=== PATIENT | female | born 1955 | race Caucasian/White ===

== ENCOUNTER 2017-05-22 08:30 | Outpatient (RCR) | payer OTHER, SELFPAY ==
--- NOTE | 2016-12-15 17:56 | HP.PTEVAL ---
Patient's Visit Information RAFIQ ALCANTAR is a 61 year old F referred to Physical Therapy by Devora Trejo with a diagnosis of LUMBAR DDD AND SPONDYLOSIS. Date of Evaluation: 12/15/16 Physical Therapist: Reena Whiting - Visit Plan Frequency: 2-3x /Week Duration: 4-6 Weeks Plan: *PATIENT IS ALSO IN PT [place] FOR [place] WITH REFERAL FROM ANOTHER DOCTOR AT [facility]. POSTURE CORRECTION/STRENGTHENING, INSTRUCTION IN APPROPRIATE BODY MECHANICS AND ACTIVITY MODIFICATIONS. DLS WITH A NEUTRAL SPINE. ASHLEY LE ROM, STRETCHING AND STRENGTHENING. HEP INSTRUCTION. AQUATIC THERAPY WITH VERY SLOW PROGRESSION. 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 Disability: NO. Present symptoms: LOW BACK PAIN. NO LE SX'S. Present since: JUN 11 2016. Pain Scale: WORSE 7/10. LEAST 1/10. Currently: 2/10 - UNCHANGING. Commenced as a result of: SLIGHTLY BENT OVER PUTTING A BOX IN THE BACK OF HER CAR FELT SOMEHTING GIVE IN HER BACK AT HOME. SEVERE BACK PAIN AT THE TIME AND DIAGNOSED WITH COMPRESSION FRACTION LATER. Symptoms at onset: BACK. Worse: BEING UP RIGHT. THE MORE SHE IS UP THE WORSE IT GETS. Better: SITTING AND LYING DOWN ARE BETTER. Disturbed sleep: YES. Previous history/Previous treatment: HISTORY OF ABOUT 5 YEARS OF LBP PRIOR TO May. FEB 2016 WENT TO A PAIN SPECIALIST AND HAD INJECTIONS - INSIGNIFICANT EFFECT EVEN AFTER ABOUT 24 INJECTION IN 3 VISITS (DR. LEDEZMA). KYPHOPLASTY (ALSO BY DR. LEDEZMA) JUN 30 2016 - I THINK HE BROKE TWO MORE VERTEBRAE WHILE HE WAS IN THERE AND LATER IN THE ER THEY TOLD ME I HAD TWO MORE FRACTURES IN ADDITION TO THE ORIGINAL ONE. HOSPITALIZED FOR TWO WEEKS WITH 3 COMPRESSION FX'S. I WAS TOLD MY SPINE IS CRUMBLING AND THERE ISN'T ANYTHING SURGICAL THAT CAN BE DONE. Coughing/sneezing/straining: POSITIVE. Gait: HAS BEEN WALKING WITH A CANE OR WALKER EVER SINCE MAY 2016 AND DOES NOT FEEL STEADY WITHOUT AN ASSISTIVE DEVICE. Difficulty initiating urinatin: NO. SEEING A FAMILY DOCTOR FOR UTI THURSDAY. Accidents: NO. Unexplained weight loss: HAS LOST 56 LBS SINCE JULY 2016. POSSIBLY PAIN RELATED. NO APPETITE. Imaging: MOST RECENT LUMBAR IMAGING WAS AUGUST 2016. PMH: DX WITH PULMONARY EMBOLISM AND HOSPITALIZED A FEW WEEKS AGO FOR SUCH. Recent major surgery: NO. OTHER: HAS BEEN IN PHYSICAL THERAPY AT [facility] SINCE BEGINNING OF AUGUST FOR HER BACK CONDITION. STATES THAT THE PHYSICAL THERAPIST THERE RECOMMENDED SHE COME TO [facility] FOR WATER EX AND DR. TREJO ORDERED SUCH. INJECTIONS STARTED WITH DR. TREJO ABOUT AUGUST 2016 AND NEXT IS SCHEDULED FOR DEC 2016. - Objective Sitting Posture: POOR. Standing Posture: POOR. Lordosis: REDUCED. Lateral shift: NO. Relevant shift: N/A. Other Observations: HAS A BACK BRACE RECOMMENDED BY HOSPITAL THERAPIST PER PATIENT REPORT AND SHE WEARS IT ALL THE TIME. Motor deficit: ASHLEY LE STRENGHT IS GROSSLY 3+ to 4-/5 with MMT'ing. Sensory deficit: ASHLEY LE LIGHT TOUCH SENSATION APPEARS TO BE INTACT AND SYMMETRIAL. ROM deficit: ASHLEY LE TIGHTNESS. Reflexes: NT. Dural Signs: NEGATIVE ASHLEY LE'S. Lumbar mvmt loss: flex - MAU. ext - MAU. R SG - MAU. L SG - MAU. Core strength: POOR. OTHER: I PROCEEDED CAREFULLY WITH ALL TESTING TODAY. PATIENT HAS A LARGE AMOUNT OF ASHLEY LE EDEMA. SHE REPORTS SHE HAD THIS ABOUT A YEAR AGO AND IT WENT AWAY BUT CAME BACK AFTER SHE HURT HER BACK. - Goals Goal 1:: DECREASE C/O BACK AND ASHLEY LE SX'S. Goal Time Frame: 4-6 Weeks Goal 2:: IMPROVE PERSONAL CARE, LIFTING, WALKING, SITTING, STANDING, SLEEP, SOCIAL LIFE, TRAVEL AND EMPLOYMENT/HOMEMAKING FUNCTION Goal Time Frame: 4-6 Weeks Goal 3:: INSTRUCT IN PROPHYLAXIS Goal Time Frame: 4-6 Weeks - Rehabilitation Potential Rehabilitation Potential: Fair - Anticipated Interventions Patient/Client Instruction: Educate patient on: Condition, Plan of Care, Risk Factors, Benefits of Fitness Program For the Purpose of:: To improve self management Therapeutic Exercise to Include: Strength training, Body mechanics, Postural training, Flexibilty training, Gait and locomotor training, In an aquatic setting, Dynamic Lumbar Stabilization For the Purpose of:: To improve ability of physical actions for home/community/work/leisure Thank you for the opportunity to evaluate your patient. For Medicare and Medicare HMO plans, please review the plan of care and approve it. It will need to be FAXED BACK to us at [phone] for Medicare purposes. Please let me know if there are questions or concerns regarding this plan of care. Physician Signature: Date:
--- NOTE | 2017-01-16 10:58 | HP.PTREVAL_ITS ---
Devora Asencio, It has been my pleasure to treat RAFIQ ALCANTAR over the last 9 visits for LUMBAR DDD AND SPONDYLOSIS. Please see the progress note below for an update on the physical therapy plan of care! Subjective: PATIENT REPORTS SHE IS GETTING A LITTLE MORE STAMINA EVERY DAY. SHE REPORTS SHE IS LEARNING A LOT IN PHYSICAL THERAPY THAT SHE THINKS IS AND WILL BENEFIT HER IN TERMS OF POSTURE, CORE, HOW TO STAND AND HOW TO MOVE. I DON'T THINK I'M SLUMPED OVER I WAS. PATIENT REPORTS SHE WANTS TO CONTINUE PT BECAUSE SHE THINKS IT IS MAKING A BIG DIFFERENCE AND SHE WANTS TO GET MUCH BACK TO NORMAL POSSIBLE. Objective/Function: PATIENT CONTINUES TO HAVE A SLOW ANTALGIC GAIT PATTERN. SHE STATES SHE CAN NOT TRANSFER FROM SIT TO STAND WITHOUT UE ASSIST AND DOES NOT TRY. SHE CONTINUES TO HAVE MAJOR LUMBAR MVMT LOSS ALL PLANES. HER LEG STRENGTH DOES TEST STRONGER ASHLEY: HIP FLEX 3+/5, ADD 4-/5, ABD 4-/5, IR 4-/5, ER 4-/5, KNEE EXT 4/5, ANKLE DORSIFLEX 4/5. AGAIN - I PROCEEDED CAREFULLY WITH MMT AND PATIENT DENIED INCREASED PAIN WITH MMT. SLOW BUT GOOD PROGRESS TOWARD PT GOALS. RECOMMEND CONTINUED SKILLED PT PER ORIG POC. Plan Plan: POSTURE CORRECTION/STRENGTHENING, INSTRUCTION IN APPROPRIATE BODY MECHANICS AND ACTIVITY MODIFICATIONS. DLS WITH A NEUTRAL SPINE. ASHLEY LE ROM, STRETCHING AND STRENGTHENING. HEP INSTRUCTION. AQUATIC THERAPY WITH VERY SLOW PROGRESSION. CONTINUE 2-3 TIMES A WEEK X 10 VISITS THEN RE-CHECK. Goals Goal 1:: DECREASE C/O BACK AND ASHLEY LE SX'S. Goal Time Frame: 4-6 Weeks Goal 2:: IMPROVE PERSONAL CARE, LIFTING, WALKING, SITTING, STANDING, SLEEP, SOCIAL LIFE, TRAVEL AND EMPLOYMENT/HOMEMAKING FUNCTION Goal Time Frame: 4-6 Weeks Goal 3:: INSTRUCT IN PROPHYLAXIS Goal Time Frame: 4-6 Weeks Anticipated Interventions Patient/Client Instruction: Educate patient on: Condition, Plan of Care, Risk Factors, Benefits of Fitness Program For the Purpose of:: To improve self management Therapeutic Exercise to Include: Strength training, Body mechanics, Postural training, Flexibilty training, Gait and locomotor training, In an aquatic setting, Dynamic Lumbar Stabilization For the Purpose of:: To improve ability of physical actions for home/community/ work/leisure Please do not hesitate to contact me at [phone] by phone or Fax: if you have questions or concerns regarding this new plan of care! Sincerely, Reena Whiting
--- NOTE | 2017-04-07 09:46 | HP.PTREVAL_ITS ---
Devora Trejo, It has been my pleasure to treat RAFIQ ALCANTAR over the last 30 visits for LUMBAR DDD AND SPONDYLOSIS. Please see the progress note below for an update on the physical therapy plan of care! 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 SHE FEELS HER CORE IS STRONGER AND SHE CAN STAND AND BE UPRIGHT LONGER NOW WITHOUT THE PAIN. SHE FEELS BETTER AND SHE IS SLEEPING BETTER. THE PAIN IS STILL THERE BUT IT IS A LOT LESS. SHE REPORTS HER BIGGEST PROBLEM AT THIS POINT IS HER POOR STAMINA. SHE REPORTS SHE IS LIMITED TO EITHER GROCERY SHOPPING, GOING TO WORK OR OTHER SHOPPING BUT IN THE PAST SHE COULD DO ALL THREE. SHE IS WORKING 6 HOURS 2 DAYS A WEEK. 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 SHE WANTS TO BE ABLE TO WORK 20 HOURS A WEEK. STATES SHE STILL USES HER CANE ALL THE TIME BECAUSE HER BALANCE IS OFF AND SHE STUMBLES AND TRIPS. TOOK TWO PAIN PILLS THIS MORNING. USUALLY DOES NOT HAVE A LOT OF PAIN IN THE MORNING UNTIL ABOUT [address] TREJO NEXT THURSDAY. Objective/Function: PATIENT CONTINUES TO HAVE A SLOW ANTALGIC GAIT PATTERN. SHE STATES SHE STILL CAN NOT TRANSFER FROM SIT TO STAND WITHOUT UE ASSIST AND DOES NOT TRY. LUMBAR MVMT LOSS HAS IMPROVED: FLEX - MIN, EXT - MAU, LEFT SG - MOD, RIGHT SG - MIN. HER LEG STRENGTH TESTS BETTER TODAY - ASHLEY: HIP FLEX 4-/ 5, ADD 4/5, ABD 4/5, IR 4/5, ER 4/5, KNEE EXT 5/5, KNEE FLEX 5/5, ANKLE DORSIFLEX 5/5. AGAIN - I PROCEEDED CAREFULLY WITH MMT AND PATIENT DID NOT HAVE NCREASED PAIN WITH HIP FLEX TESTING BUT IT RESOLVED QUICKLY WITH REST. SLOW BUT GOOD PROGRESS TOWARD PT GOALS. RECOMMEND CONTINUED SKILLED PT PER ORIG POC. Plan Plan: CONTINUE AQUATIC THERAPY 1X A WEEK WHILE PATIENT STARTS INDEP MEMBERSHIP EX IN THE POOL 1-2 TIMES A WEEK X 6 TO 7 WEEKS. GOAL OF TRANSITION TO COMPLETE INDEPENDENCE. PROGRESS TOLERATED. Goals Goal 1:: DECREASE C/O BACK AND ASHLEY LE SX'S. Goal Time Frame: 4-6 Weeks Goal Progress: Progressing Goal 2:: IMPROVE PERSONAL CARE, LIFTING, WALKING, SITTING, STANDING, SLEEP, SOCIAL LIFE, TRAVEL AND EMPLOYMENT/HOMEMAKING FUNCTION Goal Time Frame: 4-6 Weeks Goal Progress: Progressing Goal 3:: INSTRUCT IN PROPHYLAXIS Goal Time Frame: 4-6 Weeks Goal Progress: Progressing Anticipated Interventions Patient/Client Instruction: Educate patient on: Condition, Plan of Care, Risk Factors, Benefits of Fitness Program For the Purpose of:: To improve self management Therapeutic Exercise to Include: Strength training, Body mechanics, Postural training, Flexibilty training, Gait and locomotor training, In an aquatic setting, Dynamic Lumbar Stabilization For the Purpose of:: To improve ability of physical actions for home/community/ work/leisure Please do not hesitate to contact me at [phone] by phone or Fax: if you have questions or concerns regarding this new plan of care! Sincerely, Reena Whiting
--- NOTE | 2017-05-22 10:00 | HP.PTDCSUM_ITS ---
HP - PT D/C Summary It has been my pleasure to treat RAFIQ ALCANTAR under orders from Devora Asencio, for the diagnosis of LUMBAR DDD AND SPONDYLOSIS for a total of 37 visit (s). Discharge Date: 05/22/17 Please see the following information for a summary of their discharge status. - Subjective Subjective: PATIENT REPORTS SHE IS UP TO WORKING 20 HOURS A WEEK NOW. PATIENT STATES HER STAMINA IS BETTER. SHE CAN DO THINGS FOR A LONGER PERIOD OF TIME. SHE REPORTS HER BALANCE IS MUCH BETTER AND SHE IS MORE FLEXIBLE. SHE STATES SHE IS TRYIING TO DEAL WITH THE FACT THAT THE PAIN IS PROBABLY NOT GOING TO GO AWAY. SHE GOT ANOTHER INJECTION JUST BEFORE [facility] BUT IT DIDN'T HELP MUCH THE LAST TIME. PATIENT REPORTS INCREASED PAIN THIS MORNING IN HER LOW BACK THAT SHE RELATES TO STAYING UP LATE LAST NIGHT TO MAKE COOKIES AND PICKING UP THE CAT FOR AN APPOINTMENT TODAY. STILL GETTINIG UP TO 01/01. LEAST 06/03. PATIENT REPORTS SHE HAS NOT BEEN COMING IN TO EX IN THE POOL ON HER OWN AT ALL YET. SHE REPORTS SHE HAD THE BEST OF INTENTIONS BUT JUST NEVER GOT A MEMBERSHIP. SHE PLANS TO GET ONE TODAY STATING SHE FEELS SHE HAS TO BECAUSE IT IS THE ONLY THING THAT HELPS. NOT NEEDING TO USE HER CANE IN THE HOUSE MUCH ANYMORE. SHE DOES ALWAYS TAKE IT WITH HER IF SHE GOES OUT OF THE HOUSE FOR SAFETY ESPECIALLY WITH THE ICE. - Pain LBP Pain Intensity (Out of 10): 4 - Overall Improvement % Improvement: 70 - Objective Objective/Function: THIS PATIENT AMBULATES INDEP'LY INTO PT WITH A QUAD CANE AND A SLOW CAUTIOUS GAIT PATTERN. SHE STATES SHE STILL CAN NOT TRANSFER FROM SIT TO STAND WITHOUT UE ASSIST AND DOES NOT TRY. LUMBAR MVMT LOSS: FLEX - NIL , EXT - MAU, LEFT SG - MAU, RIGHT SG - MOD. HER LEG STRENGTH TESTS BETTER TODAY - ASHLEY: HIP FLEX 4/5, ADD 5/5, ABD 4/5, IR 4/5, ER 4/5, KNEE EXT 5/5, KNEE FLEX 5/5, ANKLE DORSIFLEX 5/5. PATIENT DENIED INCREASED PAIN WITH LUMBAR ROM AND STRENGTH TESTING TODAY. PATIENT IS ONLY ABLE TO SLS X APPROX 5 SEC ON EACH LEG WITHOUT UE ASSIST. SLOW BUT GOOD PROGRESS TOWARD PT GOALS. RECOMMEND D /C DUE TO PATIENT BEING INDEP WITH A POOL PROGRAM AT THIS POINT. SHE STATES SHE WOULD LIKE TO CONTINUE PT BUT UNDERSTANDS IT IS TIME FOR HER TO BE ON HER OWN AND SHE KNOWS HER PROGRAM. STATES SHE HAS LEARNED A LOT. - Goals Goal 1:: DECREASE C/O BACK AND ASHLEY LE SX'S. Goal Progress: Progressing Goal 2:: IMPROVE PERSONAL CARE, LIFTING, WALKING, SITTING, STANDING, SLEEP, SOCIAL LIFE, TRAVEL AND EMPLOYMENT/HOMEMAKING FUNCTION Goal Progress: Progressing Goal 3:: INSTRUCT IN PROPHYLAXIS Goal Progress: Goal Met - Plan Plan: D/C - D/C Information If there are questions or concerns regarding this patient's physical therapy, please feel free to call me at [phone]. Thank you for the referral of this patient. Sincerely, Reena Whiting
== END 2017-05-22 19:00 | disposition home or self-care (01) ==
LOC: PT 08:30
PROVIDERS: Family Provider Internal Medicine; PCP Internal Medicine; Visit Provider Anesthesiology Pain Medicine
DX: M51.36 Other intervertebral disc degeneration, lumbar region (principal); M47.816 Spondylosis without myelopathy or radiculopathy, lumbar region
CPT/HCPCS: 97113; 97162; 97530

== ENCOUNTER → 2017-07-03 11:49 | Outpatient (CLI) | payer OTHER, SELFPAY ==
[2017-07-03 16:09] LABS: ALB/GLOB Ratio 1.1 RATIO (0.9-2.4); AST(SGOT) 14 U/L (15-37); Alanine Aminotransfer ALT/SGPT 26 U/L (13-56); Albumin, Serum 3.3 g/dL (3.2-5.0); Alkaline Phosphatase 109 U/L (45-117); Anion Gap 8 (5-15); BUN 16 mg/dL (7-18); BUN/Creat Ratio 24.2 RATIO (10-20); Calcium,Total 8.8 mg/dL (8.5-10.1); Chloride 102 mmol/L (98-107); Creatinine, Serum 0.66 mg/dL (0.55-1.02); EST Glomerular Filtration Rate 96 mL/min (>60); Est Glom Filt Rate - Afr Amer 116 mL/min (>60); Glucose 115 mg/dL (74-106); Magnesium 2.1 mg/dL (1.6-2.6); Phosphorus 3.7 mg/dL (2.5-4.9); Potassium 4.3 mmol/L (3.5-5.1); Protein, Total 6.3 g/dL (6.4-8.2); Sodium Level 140 mmol/L (136-145)
[2017-07-03 16:44] LABS: Vitamin D,25 Hydroxy 15.6 ng/mL (19.95-100.01)
[2017-07-03 18:29] LABS: PTHIN 167.6 pg/mL (18.4-80.1)
== END ==
LOC: LAB 14:59 → MEDOUTP 15:59
PROVIDERS: Family Provider Internal Medicine; PCP Internal Medicine; Visit Provider Internal Medicine Endocrinology, Diabetes & Metabolism
DX: M81.0 Age-related osteoporosis without current pathological fracture (principal); E21.1 Secondary hyperparathyroidism, not elsewhere classified; E55.9 Vitamin D deficiency, unspecified; E83.39 Other disorders of phosphorus metabolism; E83.42 Hypomagnesemia
CPT/HCPCS: 36591; 80053; 82306; 83735; 83970; 84100; A4216

== ENCOUNTER → 2017-08-07 11:27 | Outpatient (CLI) | payer OTHER, SELFPAY ==
--- NOTE | 2017-08-07 11:29 | CT_ITS ---
STUDY: CTA CHEST REASON FOR EXAM: Female, 61 years old. Shortness breast for 3 weeks. History of skin cancer. RADIATION DOSAGE (If Supplied By Facility): CTDIvol = ( 16.26 ) mGy, DLP = ( 635.10 ) mGycm TECHNIQUE: The examination was performed with the intravenous administration of 100 ml of Isovue 370 contrast material. Post-processing of the angiographic images was performed, with multiplanar reformation and 3D reconstruction. Individualized dose optimization techniques were used for this CT. COMPARISON: CTA of the chest, April 02, 2017. FINDINGS: There is a right jugular Port-A-Cath with its tip at the atriocaval junction. Normal enhancement of the main pulmonary artery and right and left pulmonary arteries. Normal enhancement of the bilateral peripheral pulmonary arteries. There is no demonstrated pulmonary embolism. There is atherosclerotic tortuosity of the thoracic aorta without aneurysm. There is no demonstrated aortic dissection. Normal heart and pericardium. There is stable nonspecific subcentimeter mediastinal lymphadenopathy. Normal hilar regions. Normal visualized trachea and bronchi. The lungs are well expanded. There is linear scarring in the left upper lobe. There are multiple predominantly subpleural soft tissue nodules throughout both lungs which appear unchanged in number and size when compared to the prior study. Normal pleura. Normal chest wall structures. There are degenerative changes of thoracic spine. Normal visualized upper abdomen. CT/CTA Chest W/WO Contrast IMPRESSION: 1. No evidence of pulmonary embolus. 2. No aortic dissection or aneurysm. 3. Multiple small soft tissue nodules throughout both lungs unchanged from the previous examination. Electronically Signed: Dwain Kenyon DO at 12:16 EDT Tel [phone], Service support ,
[2017-08-07 11:45] LABS: CREATININE FINGERSTICK 0.8 mg/dL (0.55-1.02); EGFR FINGERSTICK > 60.0000 mL/min (>60)
== END ==
PROVIDERS: Family Provider Internal Medicine; PCP Internal Medicine; Visit Provider Internal Medicine
DX: R91.8 Other nonspecific abnormal finding of lung field (principal); R06.02 Shortness of breath
CPT/HCPCS: 71275; Q9967; A4216

== ENCOUNTER → 2017-09-01 09:35 | Outpatient (CLI) | payer OTHER, SELFPAY ==
--- NOTE | 2017-09-01 09:38 | RAD_ITS ---
STUDY: X-RAY - LEFT FOOT CLINICAL: Female, 61 years old. Trauma, pain TECHNIQUE: 3 view(s) of the foot. COMPARISON: None. FINDINGS: The bones are demineralized. Degenerative changes are seen within the midfoot. Bony spurring is seen along the dorsum. There is pes planus. There is a nondisplaced fracture at the base of the fifth metatarsal. Normal metatarsophalangeal joint of the great toe. Normal tibial and fibular sesamoid bones. Normal interphalangeal joint of the great toe. Normal phalanges of the great toe. Normal second through fifth metatarsophalangeal joints. Normal interphalangeal joints and phalanges of the lesser toes. The soft tissue structures are unremarkable. RAD/Foot min 3 Views IMPRESSION: Nondisplaced fracture at the base of the fifth metatarsal. Osteopenia. Degenerative changes and pes planus. Electronically Signed: Colin Bailey DO at 10:29 EDT Tel , Service support ,
== END ==
PROVIDERS: Family Provider Internal Medicine; PCP Internal Medicine; Visit Provider Internal Medicine
DX: M79.672 Pain in left foot (principal)
CPT/HCPCS: 73630

== ENCOUNTER → 2017-09-02 09:32 | Outpatient (CLI) | payer OTHER, SELFPAY ==
[2017-09-02 10:08] LABS: Amphetamine Urine VISTA NEGATIVE (<1000 ng/mL); Barbiturate Urine VISTA NEGATIVE (< 200 ng/mL); Benzodiazepine Urine VISTA NEGATIVE (< 200 ng/mL); Cocaine Urine VISTA NEGATIVE (< 300 ng/mL); Ecstacy Urine VISTA NEGATIVE (< 500 ng/mL); Methadone Urine VISTA NEGATIVE (< 300 ng/mL); PCP Urine VISTA NEGATIVE (< 25 ng/mL); THC Urine VISTA NEGATIVE (< 50 ng/mL); Vista UDS pH Range 5
== END ==
PROVIDERS: Family Provider Internal Medicine; PCP Internal Medicine; Visit Provider Anesthesiology Pain Medicine
DX: F11.20 Opioid dependence, uncomplicated (principal)
CPT/HCPCS: 80307

== ENCOUNTER → 2017-10-23 08:06 | Outpatient (CLI) | payer OTHER, SELFPAY ==
[2017-10-23 08:30] VITALS: BP 159/92; PULSE 100; RESP 16; TEMP 36.6; O2SAT 99; BMI 47.9
[2017-10-23] MEDS: Cosyntropin 0.25 MG Vial IV (08:53)
[2017-10-25 08:42] LABS: Adrenocorticotropic Hormone 27.1 pg/mL (7.2-63.3)
== END ==
PROVIDERS: Family Provider Internal Medicine; PCP Internal Medicine; Visit Provider Internal Medicine Nephrology
DX: E27.40 Unspecified adrenocortical insufficiency (principal)
CPT/HCPCS: 96374; 36591; 82024; 82533; A4216; J0834

== ENCOUNTER → 2017-11-27 15:30 | Outpatient (CLI) | payer OTHER, SELFPAY | PROVIDERS: Family Provider Internal Medicine; PCP Internal Medicine; Visit Provider Internal Medicine Medical Oncology | DX: Z45.2 Encounter for adjustment and management of vascular access device (principal) | CPT/HCPCS: 36591; A4216 ==

== ENCOUNTER → 2017-12-18 14:41 | Outpatient (CLI) | payer OTHER, SELFPAY ==
--- NOTE | 2017-12-18 14:45 | RAD_ITS ---
STUDY: X-RAY - RIGHT SHOULDER REASON FOR EXAM: Female, 62 years old. Pain TECHNIQUE: 4 view(s) of the shoulder. COMPARISON: None. FINDINGS: There is mild degenerative arthrosis of the glenohumeral articulation. There is degenerative arthrosis of the acromioclavicular joint without inferior osseous spur formation. There is a spur on the undersurface of the acromion which could cause impingement in the right clinical setting per Normal humeral head and visualized proximal humerus. The soft tissue structures are unremarkable. Normal visualized pulmonary apex. 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 Electronically Signed: Tomer Hopkins MD at 15:18 EDT , Service support ,
== END ==
PROVIDERS: Family Provider Internal Medicine; PCP Internal Medicine; Visit Provider Internal Medicine
DX: M19.011 Primary osteoarthritis, right shoulder (principal)
CPT/HCPCS: 73030

== ENCOUNTER 2017-12-21 15:30 | Outpatient (RCR) | payer OTHER, SELFPAY ==
--- NOTE | 2017-10-14 17:27 | HP.PTEVAL ---
Patient's Visit Information RAFIQ ALCANTAR is a 61 year old F referred to Physical Therapy by Devora Asencio with a diagnosis of Back and leg pain. Date of Evaluation: 10/13/17 Physical Therapist: David Ortega - Visit Plan Frequency: 2x /Week Duration: 4 Weeks Plan: f/u with postural corrections. Add wall push-ups at next visit. - Subjective Subjective: Pt. is here today for her initial evaluation with diagnosis of back and leg pain. Pt. denies having leg pain today, but is mostly having low back pain. Pt. reports having a history of low back pain. Present since: JUN 11 2016. 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 Disability: NO. Present symptoms: LOW BACK PAIN. NO LE SX'S. . Pain Scale: WORSE 7/10. LEAST 1/10. Currently: 5/10 - UNCHANGING. Commenced as a result of: SLIGHTLY BENT OVER PUTTING A BOX IN THE BACK OF HER CAR FELT SOMEHTING GIVE IN HER BACK AT HOME. SEVERE BACK PAIN AT THE TIME AND DIAGNOSED WITH COMPRESSION FRACTION LATER. Symptoms at onset: BACK. Worse: BEING UP RIGHT. Pt. reports increasd symptoms with walking, standing that worsens with increased time in either position. Better: SITTING AND LYING DOWN ARE BETTER. Disturbed sleep: YES. Previous history/Previous treatment: HISTORY OF ABOUT 5 YEARS OF LBP PRIOR TO May. FEB 2016 WENT TO A PAIN SPECIALIST AND HAD INJECTIONS - INSIGNIFICANT EFFECT EVEN AFTER ABOUT 24 INJECTION IN 3 VISITS (DR. LEDEZMA). KYPHOPLASTY (ALSO BY DR. LEDEZMA) JUN 30 2016 . HOSPITALIZED FOR TWO WEEKS WITH 3 COMPRESSION FX'S. I WAS TOLD MY SPINE IS CRUMBLING AND THERE ISN'T ANYTHING SURGICAL THAT CAN BE DONE, pt. reports multiple specialist have told her this. Coughing/sneezing/straining: POSITIVE. Gait: HAS BEEN WALKING WITH A CANE OR WALKER EVER SINCE MAY 2016 AND DOES NOT FEEL STEADY WITHOUT AN ASSISTIVE DEVICE. Accidents: NO. Imaging: Recent major surgery: NO. OTHER: Pt. did fall recently, my legs just gave out. She ended up having a L foot fracture, but was unable to wear a boot due to being unbalance. Pt. reports that her fx is not healing, but surgeon wants to continue with current POC. She reports that her physician says she is doing better and is ready to start doing PT again. Pt. reports doing minimal at home because land therapy has never helped me. She trialed aquatic Pt on own, but did not continue do to time constraints. - Pain Lumbar Spine Pain Intensity (Out of 10): 2 Pain Intensity Range: 5, 8 - Objective POSTURE: Pt. has flexed posture in stance. Pt. has R shoulder lean, due to levascolosis. Pt. has normal iliac crest height. Pt. has FH and rounded shoulders. PALPATION: Pt. has increased tenderness to palpation of lower lumbar paraspinals. Increased pain with light spring testing, no radiating symptoms. NEUROLOGICAL: Pt. has 2+ achilles and patellar DTR bilaterally. Pt. has normal sensation to light and sharp touch of bilateral LEs. Pt. is able to rise on heels and toe without visible weakness, but requires balance aid to maintain stability. ROM: LUMBAR SPINE: flexion min/nil loss NE, ext mod/max loss increase NW, SB mod/min loss increase NW, rotation mod loss increase NW. Normal hip ROM without increase in symptoms. Tight HS noted and tight hip flexors bilaterally. PT. has increasd pain with GAIL, but no increase with RFIS. Pt. MMT: RLE- ankle 5/5 throughout; knee- ext 4+/5, flexion 4/5; hip- flexion 4/5, abd 4-/5, ext 4/5. LLE- ankle 5/5 throughout; knee- ext 4+/5, flexon 4/5; hip- flexion 4/5, abd 4-/5, ext 4-/5. Core strength poor. GAIT: Pt. ambulates with cane with increased hip translation, contralateral hip drop. Pt. has flexed posture with FH. Pt. reports increased lumbar spine pain with increased walking for ~200ft. Reduces with sitting. - Goals Goal 1:: Pt to be I with HEP. Goal Time Frame: 4-6 Weeks Goal 2:: Pt. to have increased BLE and core strength by 1/2 grade of all effected musculature to increase stability and reduce stress applied to lumbar spine. Goal Time Frame: 4-6 Weeks Goal 3:: Pt. to have improved erect posture in stance seen by pt. being able to demonstrate throughout therapy session. Goal Time Frame: 4-6 Weeks Goal 4:: Pt. to ambulate 500ft. with improved posture and decreased lumbar spine pain allowing greater tolerance to all community mobilty. Goal Time Frame: 4-6 Weeks Goal 5:: Pt. 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 Goal Time Frame: 4-6 Weeks - Rehabilitation Potential Physical Therapy Diagnosis: Pt. has signs and symptoms consistent with lumbar spine. Pt. has marked weakness in her BLEs and core and limited lumbar ROM. Pt. would benefit from PT to increase core strength, lumbar ROM and general mobility training in gravity reduced enviornement. Rehabilitation Potential: Fair - Anticipated Interventions Patient/Client Instruction: Educate patient on: Condition, Plan of Care, Risk Factors, Benefits of Fitness Program For the Purpose of:: To improve safety, To improve health and function, To foster healthy habits, To improve decision making, To facilitate caregiver knowledge, To improve self management, To prevent re-injury, To improve ability to perform tasks related to life management, To improve tolerance to ADL's Therapeutic Exercise to Include: Strength training, Power training, Endurance training, Balance training, Postural training, Flexibilty training, Gait and locomotor training, In an aquatic setting, Passive ROM, Active ROM, Dynamic Lumbar Stabilization For the Purpose of:: To decrease pain, To increase ROM, To improve nutrient delivery to tissue, To increase oxygenation perfusion, To improve muscle performance and motor function, To improve gait and locomotor functions, To improve health of tissue, To decrease soft tissue restriction, To increase flexibility/ROM, To improve endurance, To improve balance, To improve safety with gait Thank you for the opportunity to evaluate your patient. For Medicare and Medicare HMO plans, please review the plan of care and approve it. It will need to be FAXED BACK to us at [phone] for Medicare purposes. Please let me know if there are questions or concerns regarding this plan of care. Physician Signature: Date:
--- NOTE | 2017-11-19 07:59 | HP.PTREVAL_ITS ---
Devora Asencio, It has been my pleasure to treat RAFIQ ALCANTAR over the last 10 visits for Back and leg pain. Please see the progress note below for an update on the physical therapy plan of care! Subjective: PT HAS 2 MORPHINES IN HER CURRENTLY. Objective/Function: pT PREM ALL WELL. PT WAS UNABLE TO STAY LONG AFTER PT, NEEDS TO BE SOMEWHERE. Plan Plan: CONT POOL THERAPY- WORKING TOWARDS INDEPENDENT POOL PROGRAM WITH PAPER. Goals Goal 1:: Pt to be I with HEP. Goal Time Frame: 4-6 Weeks Goal Progress: Progressing Goal 2:: Pt. to have increased BLE and core strength by 1/2 grade of all effected musculature to increase stability and reduce stress applied to lumbar spine. Goal Time Frame: 4-6 Weeks Goal Progress: Progressing Goal 3:: Pt. to have improved erect posture in stance seen by pt. being able to demonstrate throughout therapy session. Goal Time Frame: 4-6 Weeks Goal Progress: Progressing Goal 4:: Pt. to ambulate 500ft. with improved posture and decreased lumbar spine pain allowing greater tolerance to all community mobilty. Goal Time Frame: 4-6 Weeks Goal Progress: Progressing Goal 5:: Pt. 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 Goal Time Frame: 4-6 Weeks Goal Progress: Progressing Anticipated Interventions Patient/Client Instruction: Educate patient on: Condition, Plan of Care, Risk Factors, Benefits of Fitness Program For the Purpose of:: To improve safety, To improve health and function, To foster healthy habits, To improve decision making, To facilitate caregiver knowledge, To improve self management, To prevent re-injury, To improve ability to perform tasks related to life management, To improve tolerance to ADL's Therapeutic Exercise to Include: Strength training, Power training, Endurance training, Balance training, Postural training, Flexibilty training, Gait and locomotor training, In an aquatic setting, Passive ROM, Active ROM, Dynamic Lumbar Stabilization For the Purpose of:: To decrease pain, To increase ROM, To improve nutrient delivery to tissue, To increase oxygenation perfusion, To improve muscle performance and motor function, To improve gait and locomotor functions, To improve health of tissue, To decrease soft tissue restriction, To increase flexibility/ROM, To improve endurance, To improve balance, To improve safety with gait Please do not hesitate to contact me at [phone] by phone or Fax: if you have questions or concerns regarding this new plan of care! Sincerely, David Ortega
--- NOTE | 2017-12-29 07:49 | HP.PTDCSUM ---
HP - PT D/C Summary It has been my pleasure to treat RAFIQ ALCANTAR under orders from Devora Asencio, for the diagnosis of Back and leg pain for a total of 19 visit(s). Discharge Date: 12/23/17 Please see the following information for a summary of their discharge status. - Subjective Subjective: Pt. is here today for her final follow up. Pt. reports having some mild relief with pool exercises, but continues to have pain. Pt. is independent with current program. Pt. reports having 3/10 pain in lumbar spine currently. - Pain Lumbar Spine Pain Intensity (Out of 10): 3 - Overall Improvement % Improvement: 50 - Objective Objective/Function: LUMBAR ROM: flexion- min/mod loss increase NW, ext mod loss increase NW, rotation min loss bilat increase NW, SB min loss bilat increase NW. Pt. has normal hip ROM, except tightness noted in B HS and hip flexors. MMT: RLE- ankle/knee 5/5 throughout; hip- flexion 4/5, abd 4/5, ext 4/5. LLE- ankle/knee 5/5 throughout; hip- flexion 4/5, abd 4/5, ext 4/5. Core strength- poor+. GAIT: Pt. ambulates with SPC, but has slight flexed posture, with R lateral lean. Pt. reports increased pain with R stance phase. STAIRS: Pt. uses BHR with flexed posture and step to pattern, lateral side stepping to descend. - Goals Goal 1:: Pt to be I with HEP. Goal Progress: Goal Met Goal 2:: Pt. to have increased BLE and core strength by 1/2 grade of all effected musculature to increase stability and reduce stress applied to lumbar spine. Goal Progress: Goal Met Goal 3:: Pt. to have improved erect posture in stance seen by pt. being able to demonstrate throughout therapy session. Goal Progress: Goal Met Goal 4:: Pt. to ambulate 500ft. with improved posture and decreased lumbar spine pain allowing greater tolerance to all community mobilty. Goal Progress: Goal Met Goal 5:: Pt. 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 Goal Progress: Progressing - Plan Plan: Pt. to be DC to I pool program currently. - D/C Information Discharge Comments: Pt. was treated for her low back pain with hip and core strengthening in aquatic setting. Pt. is now independent with her exercises in the pool. Pt. continues to have symptoms, but knows she has to continue to focus on core stability to reduce stress on her lumbar spine with all functional mobility. Pt. consents to HEP on her own and DC from PT this date. If there are questions or concerns regarding this patient's physical therapy, please feel free to call me at [phone]. Thank you for the referral of this patient. Sincerely, David Ortega
== END 2017-12-21 19:00 | disposition home or self-care (01) ==
LOC: PT 15:30
PROVIDERS: Family Provider Internal Medicine; PCP Internal Medicine; Visit Provider Anesthesiology Pain Medicine
DX: M54.9 Dorsalgia, unspecified (principal); M79.606 Pain in leg, unspecified
CPT/HCPCS: 97113; 97162; 97530

== ENCOUNTER 2018-01-08 11:00 | Outpatient (RCR) | payer OTHER, SELFPAY ==
--- NOTE | 2017-12-25 14:23 | HP.PTEVAL ---
Patient's Visit Information RAFIQ ALCANTAR is a 62 year old F referred to Physical Therapy by Batsheva Pak with a diagnosis of R shoulder supraspinatus/biceps tendonitis. Date of Evaluation: 12/23/17 Physical Therapist: David Ortega - Visit Plan Frequency: 2x /Week Duration: 4 Weeks Plan: Start with PROM/AAROM of R shoulder, US to promote healing. Add in below shoulder RTC strengthening without increase in symptoms. Add in postural education to reduce increased stress at GH joint and subacromial space. - Subjective Subjective: Pt. is here today for her initial evaluation with diagnosis R shoulder supraspinatus tendonitis and bursitis. Pt. reports not knowing cause of symptoms. Pt. reprots increased shoulder pain with all lifting of her arm, sleeping, and upper body dressing. Pt. denies numbness and tingling in RUE. Pt. has not trialed any exercises at home. Pt. reports difficulty with washing her back and hair. 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 Pt. is hopeful to improve ROM and strength in order to complete all ADLs without issues or limitations. - Pain R shoulder Pain Intensity (Out of 10): 5 Pain Intensity Range: 2, 6 - Objective POSTURE: Pt. has flexed posture, rounded shoulder, protracted scapulea bilaterally, FH posture and reduced lumbar lordosis. PALPATION: Pt. has tenderness at subacromial space of R shoulder, R suprspinatus muscle belly, and bicpital groove. NEUROLOGICAL: pt. has normal neuro testing, all intact. ROM: R shoulder- AROM- flexion 130deg. symptoms increased at ~90deg increased difficulty with controlled eccentric lowering, abd 108deg increased pain at ~80deg, functional ER C1 increase NW, functional IR greater trochanter increase NW. PROM- flexion 150deg mild increase NW, abd 130deg increase NW, ER at side 45deg NE, IR in scaption 60deg increase NW. MMT: RUE- wrist and elbow 5/5 throughout; shoulder- flexion 4/5 incraese NW, abd 4-/5 increase NW, ER 4/5 increase NW, IR 5/5 NE. - Special Tests R Shoulder External Rotation Lag Test - RC Tear: Negative R Shoulder Lift Off Test - Subscapular Tear: Negative R Shoulder Drop Sign - IS Test: Negative R Shoulder Empty Can - SS: Positive R Shoulder Belly Press - SupScap: Negative R Shoulder Neer - Impingement: Positive R Shoulder [place] Erik - Impingement: Positive R Shoulder Sulcus Sign - Inferior Laxity: Positive - Goals Goal 1:: Pt. to be I with HEP. Goal Time Frame: 4-6 Weeks Goal 2:: Pt. to haev increased AROM of R shoulder to full without increase in symptoms. Goal Time Frame: 4-6 Weeks Goal 3:: Pt. to ahve increased R shoulder strength by 1/2 grade of all effecetd musculature. Goal Time Frame: 4-6 Weeks Goal 4:: Pt. to complete all ADLs without increase in symptoms Goal Time Frame: 4-6 Weeks Goal 5:: Pt. to sleep throughout the night withotu increase in symptoms. Goal Time Frame: 4-6 Weeks - Rehabilitation Potential Physical Therapy Diagnosis: Pt. has signs symptoms consistent with supraspinatus/biceps tendonitis. Pt. has signs of supraspinatus pathology, possibly slight degenerative tear due to spuring above insertion of muscle. Pt. would benefit from PT to incerase ROM, decerase pain and progress RUE strength. Rehabilitation Potential: Fair - Anticipated Interventions Patient/Client Instruction: Educate patient on: Condition, Plan of Care, Risk Factors For the Purpose of:: To improve safety, To improve health and function, To foster healthy habits, To improve decision making, To facilitate caregiver knowledge, To improve self management, To prevent re-injury, To improve ability to perform tasks related to life management, To improve tolerance to ADL's Therapeutic Exercise to Include: Strength training, Postural training, Flexibilty training, Passive ROM, Active ROM, Scapular Strength/Stabilization For the Purpose of:: To decrease pain, To increase ROM, To improve nutrient delivery to tissue, To increase oxygenation perfusion, To improve muscle performance and motor function, To improve ability to perform ADL's, To increase tolerance to activity/condition/position, To improve health of tissue, To decrease soft tissue restriction, To increase flexibility/ROM Manual Therapy Techniques to Include: Mobilization, Functional dry needling, Soft tissue mobilization For the Purpose of:: To decrease pain, To decrease swelling/inflammation, To increase ROM, To improve nutrient delivery to tissue Cryotherapy (ice pack, ice massage): Yes Thermo therapy (hot pack): Yes Ultrasound (thermal/non thermal): Yes For the Purpose of:: To decrease pain, To decrease swelling/inflammation, To increase ROM Thank you for the opportunity to evaluate your patient. For Medicare and Medicare HMO plans, please review the plan of care and approve it. It will need to be FAXED BACK to us at [phone] for Medicare purposes. Please let me know if there are questions or concerns regarding this plan of care. Physician Signature: Date:
--- NOTE | 2018-03-04 11:21 | HP.PT.NRP ---
HP - Discharge Summary (1) - Patient Information RAFIQ ALCANTAR was seen in my office for initial evaluation on 12/23/17. The following Plan of Care was established for this patient: Initial Frequency: 2x /Week Initial Duration: 4 Weeks - Anticipated Interventions Patient/Client Instruction: Educate patient on: Condition, Plan of Care, Risk Factors For the Purpose of:: To improve safety, To improve health and function, To foster healthy habits, To improve decision making, To facilitate caregiver knowledge, To improve self management, To prevent re-injury, To improve ability to perform tasks related to life management, To improve tolerance to ADL's Therapeutic Exercise to Include: Strength training, Postural training, Flexibilty training, Passive ROM, Active ROM, Scapular Strength/Stabilization For the Purpose of:: To decrease pain, To increase ROM, To improve nutrient delivery to tissue, To increase oxygenation perfusion, To improve muscle performance and motor function, To improve ability to perform ADL's, To increase tolerance to activity/condition/position, To improve health of tissue, To decrease soft tissue restriction, To increase flexibility/ROM Manual Therapy Techniques to Include: Mobilization, Functional dry needling, Soft tissue mobilization For the Purpose of:: To decrease pain, To decrease swelling/inflammation, To increase ROM, To improve nutrient delivery to tissue Cryotherapy (ice pack, ice massage): Yes Thermo therapy (hot pack): Yes Ultrasound (thermal/non thermal): Yes For the Purpose of:: To decrease pain, To decrease swelling/inflammation, To increase ROM This patient was last seen in our office 01/08/18. Pertinent comments regarding their Physical therapy will appear below: Pt. was seen in PT for her shoulder pain. Pt. at her last visit was having 2-3 days of relief after PT, but symptoms would return. Pt. has not been seen in ~2 months and will be DC from PT at this point in time. At this point I will be discontinuing this patient from physical therapy. I would be happy to see this patient again in the future if found appropriate by the physician. Thank you! David Ortega
== END 2018-01-08 19:00 | disposition home or self-care (01) ==
LOC: PT 11:00
PROVIDERS: Family Provider Internal Medicine; PCP Internal Medicine; Visit Provider Internal Medicine
DX: M75.21 Bicipital tendinitis, right shoulder (principal)
CPT/HCPCS: 97035; 97110; 97140; 97164

== ENCOUNTER → 2018-04-08 14:28 | Outpatient (CLI) | payer OTHER, SELFPAY ==
[2018-04-08 16:44] LABS: ALB/GLOB Ratio 0.9 RATIO (0.9-2.4); AST(SGOT) 26 U/L (15-37); Alanine Aminotransfer ALT/SGPT 31 U/L (13-56); Albumin, Serum 3.4 g/dL (3.2-5.0); Alkaline Phosphatase 136 U/L (45-117); Anion Gap 8 (5-15); BUN 15 mg/dL (7-18); Calcium,Total 9.1 mg/dL (8.5-10.1); Chloride 104 mmol/L (98-107); Creatinine, Serum 0.71 mg/dL (0.55-1.02); EST Glomerular Filtration Rate 88 mL/min (>60); Est Glom Filt Rate - Afr Amer 106 mL/min (>60); Globulin 3.6 g/dL (2.2-4.2); Glucose 90 mg/dL (74-106); Magnesium 1.8 mg/dL (1.6-2.6); Phosphorus 3.5 mg/dL (2.5-4.9); Potassium 3.6 mmol/L (3.5-5.1); Sodium Level 142 mmol/L (136-145)
[2018-04-08 16:47] LABS: PTHIN 71.5 pg/mL (18.4-80.1)
== END ==
PROVIDERS: Family Provider Internal Medicine; PCP Internal Medicine; Referring Provider Internal Medicine Endocrinology, Diabetes & Metabolism; Visit Provider Internal Medicine Endocrinology, Diabetes & Metabolism
DX: M81.0 Age-related osteoporosis without current pathological fracture (principal); E21.1 Secondary hyperparathyroidism, not elsewhere classified; E55.9 Vitamin D deficiency, unspecified; E83.42 Hypomagnesemia
CPT/HCPCS: 36415; 80053; 82306; 82360; 83735; 83970; 84100

== ENCOUNTER 2018-05-07 10:00 | Outpatient (RCR) | payer OTHER, SELFPAY ==
--- NOTE | 2018-02-18 13:54 | HP.PTEVAL ---
Patient's Visit Information RAFIQ ALCANTAR is a 62 year old F referred to Physical Therapy by Devora Asencio with a diagnosis of Back Pain. Date of Evaluation: 02/18/18 Physical Therapist: Brittany Palafox - Visit Plan Frequency: 2x /Week Duration: 3 Weeks Plan: Aquatic Therapy- focus on LE and core s/s- HEP - Subjective Subjective: Has been seeing Dr. Asencio- broke her back in 2017 in 3 places and has been doctoring, therapy and in pain since then. Takes morphene 3x a day. Her back feels better when she is in the pool and doing exercises. Sees 1x a month and Dr. Asencio asked her if she was interested in a pain pump. She plans to speak to him more in 4 weeks. This afternoon she has an apt for [facility] for her left knee. TKR 12 years ago and now its bothering her and its hard to sit for more than 20 minutes she has to physically has to move it. Pain in the left knee limits her and is swelling. Due to medication change she is now hurting all over. Worst: 12/01 Agg:being up Eases: laying down, brace, meds Best:06/03 Does one thing each day. Pain is located along the lumbar spine and to the buttocks. Patient describes the pain as achy and as it progresses it is a more pressing deep burning pain. No N/T in the toes. Sleep: not disturbed but she dosn't have restful sleep. 6 months ago is when she started experiencing the left LE pain. 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 Has a lot of problems getting in/out of a chair sammy without arms. Has not come in I to perform exercises. Uses the cane at all times and is very careful and slows down a lot. August was her last fall. Living I and does all her own things- pays someone to clean the house. PMHx: back fractures, TKR, Pulmonary HTN, COPD, Chrones, suppressed immune system. Meds: IVIC infusions 1x a month, morphene, HTN med, sephynodil, ellovil, 24 hour allergy tablet. - Objective Posture: fH, RS, increased kyphosis- left shoulder was higher than the right and increased lordids in the lumbar spine. Gait: antalgic- wide CARMELO- uses straight cane- poor posture, slow sridevi, hip drop. HR/TR: able with UE A HR decreased by 50%. SLS: unable but can SL with UE A- left knee pain and reports feeling more stable on right. Sensation: WNL to light touch. Palpation: tender throughout thoracic and lumbar spine along paraspinals and spinous process with light touch. ROM: Lumbar: flexion: hands to distal raymond, extn: to neutral, SB: decreased by 50% bilaterally rot: decreased by 50% bilaterally, hip/knee/ankle: WFL. Edema: moderated in LE. Flexibility: HS: moderate Gastroc: moderate. Slump test: negative Dural Signs: negative bilaterally. Strength: Ankle: 5/5, Knee: 4+/5 with pain, Hip: 4+/5 throughout with pain, Core: poor - Goals Goal 1:: Patient will be I with HEP and progression Goal Time Frame: 4-6 Weeks Goal 2:: Patient will report 5/10 pain for 1 week Goal Time Frame: 4-6 Weeks Goal 3:: Patient will demo 5/5 strength in LE Goal Time Frame: 4-6 Weeks Goal 4:: Tam[place]et will maintain improved posture t/o tx session to demo increased scap s.s. Goal Time Frame: 4-6 Weeks - Rehabilitation Potential Physical Therapy Diagnosis: Patient presents with hypomobility- she has decreased strength and muscular endurance leading to pain and abnormal ADL's. Rehabilitation Potential: Fair - Anticipated Interventions Patient/Client Instruction: Educate patient on: Benefits of Fitness Program Therapeutic Exercise to Include: Strength training, Endurance training, Body mechanics, Postural training, Flexibilty training, Gait and locomotor training, In an aquatic setting, Dynamic Lumbar Stabilization For the Purpose of:: To improve muscle performance and motor function Thank you for the opportunity to evaluate your patient. For Medicare and Medicare HMO plans, please review the plan of care and approve it. It will need to be FAXED BACK to us at [phone] for Medicare purposes. Please let me know if there are questions or concerns regarding this plan of care. Physician Signature: Date:
--- NOTE | 2018-03-11 14:57 | HP.PTREVAL ---
Devora Asencio, It has been my pleasure to treat MILE ALCANTAR over the last 6 visits for Back Pain. Please see the progress note below for an update on the physical therapy plan of care! 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 Pt. doing same overall. Stitches in toe haven't been in pool. Not sure where headed, ongoing month after month. Dr. Asencio talking about pain pump; pt. not sure about it; concerned about cost and surgery. No pain when wake up, no pain if not doing a lot. Sees doctor next Thursday. Feels like improving since last year, better with pool. Pt. goal to get out of chair without arm rests, cannot sit in [facility], difficulty getting in/out car. Difficulty getting up from lower toilet using both arms at work. Pt. feels have made progressions but at maintenance stage. Can do exercises on own at pool, but would prefer to continue visits. Feels unstable with gait, possibliy due to medications. Objective/Function: Gait: ambulates with multi-point cane, decreased sridevi, ER hip. Posture: rounded shoulders, significant thoracic kyphosis. AROM and strength: did not assess secondary to increased pain. Transfer: Difficulty sitting and rising from chair using both UE. 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 Goals Goal 1:: Patient will be I with HEP and progression Goal Time Frame: 4-6 Weeks Goal Progress: Progressing Goal 2:: Patient will report 5/10 pain for 1 week Goal Time Frame: 4-6 Weeks Goal Progress: Progressing Goal 3:: Patient will demo 5/5 strength in LE Goal Time Frame: 4-6 Weeks Goal Progress: Progressing Goal 4:: Patinet will maintain improved posture t/o tx session to demo increased scap s.s. Goal Time Frame: 4-6 Weeks Goal Progress: Progressing Anticipated Interventions Patient/Client Instruction: Educate patient on: Benefits of Fitness Program Therapeutic Exercise to Include: Strength training, Endurance training, Body mechanics, Postural training, Flexibilty training, Gait and locomotor training, In an aquatic setting, Dynamic Lumbar Stabilization For the Purpose of:: To improve muscle performance and motor function Please do not hesitate to contact me at [phone] by phone or if you have questions or concerns regarding this new plan of care! Sincerely, Brittany Palafox
--- NOTE | 2018-05-07 10:30 | HP.PTREVAL_ITS ---
Devora Asencio, It has been my pleasure to treat MILE ALCANTAR over the last 22 visits for Back Pain. Please see the progress note below for an update on the physical therapy plan of care! Subjective: Patient reports that everything has been going well. She is manageable at this time. When she misses the pool therapy she goes backwards and hurt for days until she can get back in. Its the only movement that she is able to continue to do with her health issues. She feels very much at her baseline Objective/Function: Gait: ambulates with multi-point cane, decreased sridevi, ER hip. Posture: rounded shoulders, significant thoracic kyphosis- can correct minimally with verbal and tactile cueing but does not maintain. Strength: Ankle: 4+/5, Knee: 4+/5, Hip: 4/5 all with discomfort and pain with testing. Transfer: Difficulty sitting and rising from chair using both UE. 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 Goals Goal 1:: Patient will be I with HEP and progression Goal Time Frame: 4-6 Weeks Goal Progress: Progressing Goal 2:: Patient will report 5/10 pain for 1 week Goal Time Frame: 4-6 Weeks Goal Progress: Progressing Goal 3:: Patient will demo 5/5 strength in LE Goal Time Frame: 4-6 Weeks Goal Progress: Progressing Goal 4:: [place] will maintain improved posture t/o tx session to demo increased scap s.s. Goal Time Frame: 4-6 Weeks Goal Progress: Progressing Anticipated Interventions Patient/Client Instruction: Educate patient on: Benefits of Fitness Program Therapeutic Exercise to Include: Strength training, Endurance training, Body mechanics, Postural training, Flexibilty training, Gait and locomotor training, In an aquatic setting, Dynamic Lumbar Stabilization For the Purpose of:: To improve muscle performance and motor function Please do not hesitate to contact me at [phone] by phone or if you have questions or concerns regarding this new plan of care! Sincerely, Brittany Palafox
--- NOTE | 2018-08-26 16:50 | HP.PT.NRP ---
HP - Discharge Summary (1) - Patient Information RAFIQ ALCANTAR was seen in my office for initial evaluation on 02/18/18. The following Plan of Care was established for this patient: Initial Frequency: 2x /Week Initial Duration: 3 Weeks - Anticipated Interventions Patient/Client Instruction: Educate patient on: Benefits of Fitness Program Therapeutic Exercise to Include: Strength training, Endurance training, Body mechanics, Postural training, Flexibilty training, Gait and locomotor training, In an aquatic setting, Dynamic Lumbar Stabilization For the Purpose of:: To improve muscle performance and motor function This patient was last seen in our office . Pertinent comments regarding their Physical therapy will appear below: Patient has not attended PT in over 3 months and is appropriate for d/c at this time. Return to MD for further evaluation. At this point I will be discontinuing this patient from physical therapy. I would be happy to see this patient again in the future if found appropriate by the physician. Thank you! Brittany Palafox DPT
== END 2018-05-07 19:00 | disposition home or self-care (01) ==
LOC: PT 10:00
PROVIDERS: Family Provider Internal Medicine; PCP Internal Medicine; Referring Provider Anesthesiology Pain Medicine; Visit Provider Anesthesiology Pain Medicine
DX: M54.9 Dorsalgia, unspecified (principal); M79.606 Pain in leg, unspecified
CPT/HCPCS: 97113; 97162; 97164

== ENCOUNTER → 2018-05-24 08:18 | Outpatient (CLI) | payer OTHER, SELFPAY ==
[2018-05-24] MEDS: Cosyntropin 0.25 MG Vial IV (08:35)
[2018-05-26 14:04] LABS: DHEA Sulfate 12.8 ug/dL (29.4-220.5)
== END ==
PROVIDERS: Family Provider Internal Medicine; PCP Internal Medicine; Referring Provider Internal Medicine Endocrinology, Diabetes & Metabolism; Visit Provider Internal Medicine Endocrinology, Diabetes & Metabolism
DX: K90.9 Intestinal malabsorption, unspecified (principal)
CPT/HCPCS: 96374; 36415; 82024; 82533; 82627; 82626; A4216; J0834

== ENCOUNTER → 2018-06-08 16:26 | Outpatient (CLI) | payer OTHER, SELFPAY ==
[2018-06-08 17:16] LABS: Amphetamine Urine VISTA NEGATIVE (<1000 ng/mL); Barbiturate Urine VISTA NEGATIVE (< 200 ng/mL); Benzodiazepine Urine VISTA NEGATIVE (< 200 ng/mL); Cocaine Urine VISTA NEGATIVE (< 300 ng/mL); Ecstacy Urine VISTA NEGATIVE (< 500 ng/mL); Methadone Urine VISTA NEGATIVE (< 300 ng/mL); PCP Urine VISTA NEGATIVE (< 25 ng/mL); THC Urine VISTA NEGATIVE (< 50 ng/mL); Vista UDS pH Range 6
== END ==
PROVIDERS: Family Provider Internal Medicine; PCP Internal Medicine; Referring Provider Anesthesiology Pain Medicine; Visit Provider Anesthesiology Pain Medicine
DX: F11.20 Opioid dependence, uncomplicated (principal)
CPT/HCPCS: 80307

== ENCOUNTER → 2018-06-18 10:50 | Outpatient (CLI) | payer OTHER, SELFPAY ==
--- NOTE | 2018-06-18 10:56 | VDLE_ITS ---
Reason For Study: Pain Rt Calf RIGHT LEFT GSV is normal. CFV is compressible, spontaneous, phasic, CFV is compressible, spontaneous, phasic, competent, and demonstrates normal competent and demonstrates normal augmentation. augmentation. FV is compressible, spontaneous, phasic, competent and demonstrates normal augmentation. POP V is compressible, spontaneous, phasic, competent and demonstrates normal augmentation. T/P Trunk is compressible. PTV is compressible. RT PerV is compressible. Rt GastrocV is partially compressible with bright intraluminal echoes consistent with chronic DVT. Procedure Exam performed in department. A preliminary report was called and/or faxed to Dr. Pak. Interpretation Summary Chronic venous changes are noted in the right gastrocnemius vein, which is partially compressible and demonstrates bright intraluminal echogenicity. The remainder of the right lower extremity deep venous system is patent and compressible. Valvular competence appears intact within the proximal deep venous system on the right . The right greater saphenous vein appears patent and compressible segmentally. Ordering Physician: Batsheva Pak Referring Physician: Batsheva Pak Performed By: Tahmina Ruiz, KEYANA, RVT
== END ==
PROVIDERS: Family Provider Internal Medicine; PCP Internal Medicine; Referring Provider Internal Medicine; Visit Provider Internal Medicine
DX: M79.661 Pain in right lower leg (principal)
CPT/HCPCS: 93971

== ENCOUNTER → 2018-07-08 15:58 | Outpatient (CLI) | payer OTHER, SELFPAY ==
[2018-07-08 17:33] LABS: ALB/GLOB Ratio 0.9 RATIO (0.9-2.4); AST(SGOT) 16 U/L (15-37); Alanine Aminotransfer ALT/SGPT 23 U/L (13-56); Albumin, Serum 3.5 g/dL (3.2-5.0); Alkaline Phosphatase 92 U/L (45-117); Anion Gap 8 (5-15); BUN 12 mg/dL (7-18); BUN/Creat Ratio 17.6 RATIO (10-20); Calcium,Total 8.2 mg/dL (8.5-10.1); Chloride 105 mmol/L (98-107); Creatinine, Serum 0.68 mg/dL (0.55-1.02); EST Glomerular Filtration Rate 92 mL/min (>60); Est Glom Filt Rate - Afr Amer 111 mL/min (>60); Globulin 3.7 g/dL (2.2-4.2); Glucose 119 mg/dL (74-106); Potassium 4.3 mmol/L (3.5-5.1); Protein, Total 7.2 g/dL (6.4-8.2); Sodium Level 141 mmol/L (136-145)
[2018-07-12 11:12] LABS: DHEA Sulfate 17.3 ug/dL (29.4-220.5)
== END ==
PROVIDERS: Family Provider Internal Medicine; PCP Internal Medicine; Referring Provider Internal Medicine Endocrinology, Diabetes & Metabolism; Visit Provider Internal Medicine Endocrinology, Diabetes & Metabolism
DX: E21.1 Secondary hyperparathyroidism, not elsewhere classified (principal)
CPT/HCPCS: 36415; 80053; 82627; 82626

== ENCOUNTER → 2018-08-09 12:31 | Outpatient (CLI) | payer OTHER, SELFPAY ==
--- NOTE | 2018-08-09 12:40 | RAD_ITS ---
STUDY: X-RAY - LUMBAR SPINE REASON FOR EXAM: Female, 62 years old. Low back pain and history of fractures and surgery. TECHNIQUE: 3 view(s) of the lumbar spine were obtained. COMPARISON: CT MR spine August 09, 2016; 3 plain film views of the lumbar spine April 09, 2016 FINDINGS: There is an exaggerated lumbar lordosis. There is no substantial scoliosis. There is a normal alignment of the vertebrae. Radiopaque cement again seen in the left side of the L3 vertebra. Anterior wedging of the T12 and L1 vertebra have progressed since July 2016. There is stable depression of the superior L2 vertebral endplate, stable fracture deformity of L3, and stable mild central depression of the superior L5 vertebral endplate. Large, near bridging left anterolateral endplate osteophytes again seen from T12-L3. There is multi-level degenerative disc disease with stable multi-level upper lumbar disc space narrowing. Degenerative changes also again noted in the facet articulations. There is stable mild degenerative arthrosis of the bilateral sacroiliac joints. The soft tissue structures are unremarkable. RAD/Lumbar Spine 2 or 3 Views IMPRESSION: 1. Prior cement augmentation in the left side of the L3 vertebral fracture is unchanged. 2. Anterior wedging of T12 and L1 vertebrae have progressed since July 2016. If clinical suspicion of acute injury warrants additional imaging, MRI or bone scan may be useful. 3. Subtle depression of the superior L5 vertebral endplate grossly unchanged. 4. Stable additional degenerative changes of the spine and sacroiliac joints. Electronically Signed: Tomer Porras MD at 19:08 EDT , Service support ,
== END ==
PROVIDERS: Family Provider Internal Medicine; PCP Internal Medicine; Referring Provider Anesthesiology Pain Medicine; Visit Provider Anesthesiology Pain Medicine
DX: M54.9 Dorsalgia, unspecified (principal)
CPT/HCPCS: 72100

== ENCOUNTER → 2018-10-05 13:00 | Outpatient (CLI) | payer OTHER, SELFPAY ==
[2018-10-05] MEDS: 0.9% Normal Saline 1,000 ML 250 ML IV (13:20)
[2018-10-05 13:34] VITALS: BP 127/76; PULSE 84; RESP 18; TEMP 36.2; O2SAT 97; BMI 44.9
[2018-10-05 13:44] LABS: Erythrocyte Sedimentation Rate 36 mm/hr (0-30)
[2018-10-05 13:48] LABS: Hematocrit 45.3 % (37-47); Hemoglobin 14.3 g/dl (12.0-15.0); Mean Corp Hgb Conc 31.6 g/gl (32-36); Mean Corpuscular Hgb 29.5 pg (27.0-32.0); Mean Corpuscular Volume 93.6 fL (81-99); Mean Platelet Vol. 10.4 fl (6.2-12.0); Platelet Count 427 K/mm3 (150-450); RBC Distribution Width CV 12.9 % (11.6-14.6); RBC Distribution Width SD 44.2 fl (35.1-43.9); Red Blood Count 4.84 M/mm3 (4.2-5.4); White Blood Count 7.3 K/mm3 (4.4-11.0)
[2018-10-05 13:51] LABS: Scan Indicated on CBC? Y/N NO
[2018-10-05 13:55] LABS: ALB/GLOB Ratio 0.9 RATIO (0.9-2.4); AST(SGOT) 16 U/L (15-37); Alanine Aminotransfer ALT/SGPT 18 U/L (13-56); Albumin, Serum 3.4 g/dL (3.2-5.0); Alkaline Phosphatase 100 U/L (45-117); Anion Gap 8 (5-15); BUN 13 mg/dL (7-18); BUN/Creat Ratio 14.2 RATIO (10-20); CRP 4.36 mg/L (0.0-3.0); Calcium,Total 8.9 mg/dL (8.5-10.1); Chloride 99 mmol/L (98-107); Creatinine, Serum 0.92 mg/dL (0.55-1.02); EST Glomerular Filtration Rate 65 mL/min (>60); Est Glom Filt Rate - Afr Amer 79 mL/min (>60); Estimated Creatinine Clearance 55.59 ml/min; Globulin 3.8 g/dL (2.2-4.2); Glucose 138 mg/dL (74-106); Protein, Total 7.2 g/dL (6.4-8.2); Sodium Level 137 mmol/L (136-145)
[2018-10-05 21:11] LABS: Xtra Tube EP Lab EXTRA TUBE
== END ==
PROVIDERS: Family Provider Internal Medicine; PCP Internal Medicine; Referring Provider Nurse Practitioner Gerontology; Visit Provider Nurse Practitioner Gerontology
DX: E86.0 Dehydration (principal); R19.7 Diarrhea, unspecified
CPT/HCPCS: 96360; 96361 ×2; 36591; 80053; 85027; 85652; 86140; J7030; A4216

== ENCOUNTER → 2018-12-14 07:52 | Outpatient (CLI) | payer MEDICARE, OTHER, SELFPAY ==
[2018-10-05 13:34] VITALS: BMI 44.9
[2018-12-14 08:11] VITALS: BP 150/81; PULSE 82; RESP 18; TEMP 36.3; O2SAT 97; BMI 47.0
[2018-12-14] MEDS: Cosyntropin 0.25 MG Vial IV (08:15)
[2018-12-14 08:58] LABS: ALB/GLOB Ratio 1.2 RATIO (0.9-2.4); AST(SGOT) 15 U/L (15-37); Alanine Aminotransfer ALT/SGPT 18 U/L (13-56); Albumin, Serum 3.5 g/dL (3.2-5.0); Alkaline Phosphatase 93 U/L (45-117); Anion Gap 7 (5-15); BUN 13 mg/dL (7-18); BUN/Creat Ratio 20.5 RATIO (10-20); Calcium,Total 8.4 mg/dL (8.5-10.1); Chloride 106 mmol/L (98-107); Creatinine, Serum 0.63 mg/dL (0.55-1.02); EST Glomerular Filtration Rate 100 mL/min (>60); Est Glom Filt Rate - Afr Amer 121 mL/min (>60); Estimated Creatinine Clearance 76.88 ml/min; Glucose 87 mg/dL (74-106); Potassium 4.1 mmol/L (3.5-5.1); Protein, Total 6.5 g/dL (6.4-8.2); Sodium Level 143 mmol/L (136-145)
[2018-12-14 09:12] LABS: PTHIN 473.9 pg/mL (18.4-80.1)
[2018-12-14 09:16] LABS: Vitamin D,25 Hydroxy 13.9 ng/mL (29.95-100.01)
[2018-12-15 16:07] LABS: DHEA Sulfate 19.1 ug/dL (20.4-186.6)
[2018-12-16 09:26] LABS: Adrenocorticotropic Hormone 48.8 pg/mL (7.2-63.3)
== END ==
PROVIDERS: Family Provider Internal Medicine; PCP Internal Medicine; Referring Provider Internal Medicine Endocrinology, Diabetes & Metabolism; Visit Provider Internal Medicine Endocrinology, Diabetes & Metabolism
DX: E27.49 Other adrenocortical insufficiency (principal); M81.0 Age-related osteoporosis without current pathological fracture; E21.1 Secondary hyperparathyroidism, not elsewhere classified; E55.9 Vitamin D deficiency, unspecified
CPT/HCPCS: 96374; 36591; 80053; 82024; 82306; 82533; 82627; 83970; 82626; A4216; J0834

== ENCOUNTER → 2018-12-21 11:14 | Outpatient (CLI) | payer MEDICARE, OTHER, SELFPAY ==
[2018-10-05 13:34] VITALS: BMI 44.9
[2018-12-14 08:11] VITALS: BMI 47.0
[2018-12-21 12:03] LABS: ALB/GLOB Ratio 1.2 RATIO (0.9-2.4); AST(SGOT) 15 U/L (15-37); Alanine Aminotransfer ALT/SGPT 20 U/L (13-56); Albumin, Serum 3.6 g/dL (3.2-5.0); Alkaline Phosphatase 102 U/L (45-117); Anion Gap 6 (5-15); BUN 14 mg/dL (7-18); BUN/Creat Ratio 22.8 RATIO (10-20); Calcium,Total 9.1 mg/dL (8.5-10.1); Chloride 106 mmol/L (98-107); Creatinine, Serum 0.61 mg/dL (0.55-1.02); EST Glomerular Filtration Rate 104 mL/min (>60); Est Glom Filt Rate - Afr Amer 126 mL/min (>60); Globulin 3.1 g/dL (2.2-4.2); Glucose 92 mg/dL (74-106); Potassium 4.2 mmol/L (3.5-5.1); Protein, Total 6.7 g/dL (6.4-8.2); Sodium Level 141 mmol/L (136-145)
[2018-12-21 12:09] LABS: PTHIN 244.2 pg/mL (18.4-80.1)
[2018-12-21 12:45] LABS: Vitamin D,25 Hydroxy 14.6 ng/mL (29.95-100.01)
== END ==
PROVIDERS: Family Provider Internal Medicine; PCP Internal Medicine; Referring Provider Internal Medicine Endocrinology, Diabetes & Metabolism; Visit Provider Internal Medicine Endocrinology, Diabetes & Metabolism
DX: Z45.2 Encounter for adjustment and management of vascular access device (principal); M81.0 Age-related osteoporosis without current pathological fracture; E21.1 Secondary hyperparathyroidism, not elsewhere classified; E55.9 Vitamin D deficiency, unspecified
CPT/HCPCS: 36415; 36591; 80053; 82306; 83970; A4216

== ENCOUNTER 2019-02-08 14:00 | Outpatient (RCR) | payer MEDICARE, OTHER, SELFPAY ==
[2018-10-05 13:34] VITALS: BMI 44.9
--- NOTE | 2018-11-19 10:02 | HP.PTEVAL ---
Patient's Visit Information RAFIQ ALCANTAR is a 62 year old F referred to Physical Therapy by Devora Asencio MD with a diagnosis of BACK PAIN. Date of Evaluation: 11/19/18 Physical Therapist: Pawel Mason, PT, Cert MDT, OCS - Visit Plan Frequency: 2x /Week Duration: 4 Weeks Plan: PRECAUTIONS :OSTEOPROSIS. PT INTERVENTIONS AQUATIC PT DLS,BLE STRENGTHENING,LE FLEXABLITY,ENDURANCE EX'S - Subjective Findings: This 62 y/o male presnets to physical therapy with back pain. Patient has had back pain May 2016 putting box into car developed severe pain. Patient had compression fractures. Then had kyphoplasty but pain presistant ,reports hospitalized which was in July 2016. Patient has severe osteoprosis . Patient was on predisone 40 years.Patient has seen DR Chavez for epidural injections and morphine. Patient in past has tried Aquatic which helps. Patient had block epidural October 202018. Aggravating factors walking,standing ,lifting bending.Alleviating factors rest ,siiting medication. Coughing/sneezing+. Bowel/bladder -. Patient pain symmtrical lumbar to bilateral hips. Denies parathesai/tingling. Pain affects QOL and and ADL'S . Patient symptoms affect sleeping. Patient has decrease abliity to perform housework tasks. SOCAIL: single. 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 GAIT: ambulates with QC slow sridevi hip knees flexed slow sridevi,valgus knee antalgic. NEURO: denies parathesia/tingling ,L3-4,L4-5,L5-S1 1/3. SYMMTRIES: assymtrical pelvis. MMT: quads/hams 4-/5,hip 3+/5.ankle 4-/5. LUMBAR ROM : flexion mod loss ,extension severe,side glides mod loss pain. EDEMA: 2+ edema lower legs. MMT: quads/hams 4-/5,hip flexion 3+/5,ankle 4-/5. FLEXABLITY: hams mild tight - Goals Goal 1:: Patient to be Independant with Aquatic PT Goal Time Frame: 4-6 Weeks Goal 2:: Patient decrease pain lumbar by 50% or greater to improve function with walking and standing. Goal Time Frame: 4-6 Weeks Goal 3:: Patient increase strength BLE by 4/5 to improve gait and function. Goal Time Frame: 4-6 Weeks Goal 4:: Patient improev ADL'S and gait with min limiations. Goal Time Frame: 4-6 Weeks Goal 5:: Patient improve back owestry score by 5 ponts to improve QOL. Goal Time Frame: 4-6 Weeks - Rehabilitation Potential Physical Therapy Diagnosis: This patient has LBP and h/o osteoporosis with compression fx and had kyphoplasty with pain ,decrease gait with standing walking,weakness in legs decrease ROM lumbar impairs ADL'S. Rehabilitation Potential: Good - Anticipated Interventions Patient/Client Instruction: Educate patient on: Condition, Plan of Care For the Purpose of:: To decrease pain, To increase ROM, To improve muscle performance and motor function, To improve ability to perform ADL's, To increase tolerance to activity/condition/position, To improve performance and independence with ADL's, To improve ability of physical actions for home/community/work/leisure, To decrease soft tissue restriction, To increase flexibility/ROM, To improve ability to perform tasks related to life management Therapeutic Exercise to Include: Strength training, Body mechanics, Postural training, Flexibilty training, In an aquatic setting, Dynamic Lumbar Stabilization For the Purpose of:: To decrease pain, To improve muscle performance and motor function, To improve ability to perform ADL's, To increase tolerance to activity/condition/position, To improve ability of physical actions for home/community/work/leisure, To decrease soft tissue restriction, To increase flexibility/ROM, To improve endurance, To improve balance, To improve ability to perform tasks related to life management Thank you for the opportunity to evaluate your patient. For Medicare and Medicare HMO plans, please review the plan of care and approve it. It will need to be FAXED BACK to us at [phone] for Medicare purposes. For Medicare only, by signing this I certify the plan of care. Please let me know if there are questions or concerns regarding this plan of care. Physician Signature: Date:
--- NOTE | 2018-12-23 10:25 | HP.PTREVAL_ITS ---
Devora Asencio MD, It has been my pleasure to treat RAFIQ ALCANTAR over the last 6 visits for BACK PAIN. Please see the progress note below for an update on the physical therapy plan of care! Subjective: Patient has more pain in low back area. Walking stadning increase symptoms. Alleviating factors resting/sitting. Better with MEDS todays Objective/Function: POSTURE: mild foward posture ,hips/knees flexed antalgic gait knee valgus ,shift to left assymtrical leg length. MMT: quads/hams 4- /5,hip 4-/5,ankle 4/5. LUMBAR ROM: flexion mod ,extension mod /severe Plan Plan: Cont with POC with Aquatic PT 1-2/wk for 4weeks Goals Goal 1:: Patient to be Independant with Aquatic PT Goal Time Frame: 4-6 Weeks Goal Progress: Progressing Goal 2:: Patient decrease pain lumbar by 50% or greater to improve function with walking and standing. Goal Time Frame: 4-6 Weeks Goal Progress: Progressing Goal 3:: Patient increase strength BLE by 4/5 to improve gait and function. Goal Time Frame: 4-6 Weeks Goal Progress: Progressing Goal 4:: Patient improev ADL'S and gait with min limiations. Goal Time Frame: 4-6 Weeks Goal Progress: Progressing Goal 5:: Patient improve back owestry score by 5 ponts to improve QOL. Goal Time Frame: 4-6 Weeks Goal Progress: Progressing Anticipated Interventions Patient/Client Instruction: Educate patient on: Condition, Plan of Care For the Purpose of:: To decrease pain, To increase ROM, To improve muscle performance and motor function, To improve ability to perform ADL's, To increase tolerance to activity/condition/position, To improve performance and independence with ADL's, To improve ability of physical actions for home/community/work/leisure, To decrease soft tissue restriction, To increase flexibility/ROM, To improve ability to perform tasks related to life management Therapeutic Exercise to Include: Strength training, Body mechanics, Postural training, Flexibilty training, In an aquatic setting, Dynamic Lumbar Stabilization For the Purpose of:: To decrease pain, To improve muscle performance and motor function, To improve ability to perform ADL's, To increase tolerance to activity/condition/position, To improve ability of physical actions for home/community/work/leisure, To decrease soft tissue restriction, To increase flexibility/ROM, To improve endurance, To improve balance, To improve ability to perform tasks related to life management Please do not hesitate to contact me at [phone] by phone or if you have questions or concerns regarding this new plan of care! Sincerely, Pawel Mason, PT, Cert MDT, OCS
--- NOTE | 2019-02-08 14:29 | HP.PTDCSUM ---
HP - PT D/C Summary It has been my pleasure to treat RAFIQ ALCANTAR under orders from Devora Asencio MD, for the diagnosis of BACK PAIN for a total of 11 visit(s). Discharge Date: 02/08/19 Please see the following information for a summary of their discharge status. - Subjective Subjective: Patient reports alot of releive in Aquatic therapy with pain and function.Thus improves gait and function. Busy with work ready to d/c - Pain Left Back Pain Intensity (Out of 10): 5 - Overall Improvement % Improvement: 50 - Objective Objective/Function: POSTURE: foward posture ,pelvis assymtries. GAIT: antalgic gait with assymtry pelvis with cane. MMT: 4/5. LUMBAR ROM: flexion min/mod loss,extension mod loss,side glides mod loss to right severe to left - Goals Goal 1:: Patient to be Independant with Aquatic PT Goal Progress: Goal Met Goal 2:: Patient decrease pain lumbar by 50% or greater to improve function with walking and standing. Goal Progress: Goal Met Goal 3:: Patient increase strength BLE by 4/5 to improve gait and function. Goal Progress: Goal Met Goal 4:: Patient improev ADL'S and gait with min limiations. Goal Progress: Goal Met Goal 5:: Patient improve back owestry score by 5 ponts to improve QOL. Goal Progress: Goal Met - Plan Plan: D/C TO HEP - D/C Information Discharge Comments: AQUATICS ON OWN If there are questions or concerns regarding this patient's physical therapy, please feel free to call me at [phone]. Thank you for the referral of this patient. Sincerely, Pawel Mason, PT, Cert MDT, OCS
== END 2019-02-08 19:00 | disposition home or self-care (01) ==
LOC: PT 14:00
PROVIDERS: Family Provider Internal Medicine; PCP Internal Medicine; Referring Provider Anesthesiology Pain Medicine; Visit Provider Anesthesiology Pain Medicine
DX: M54.9 Dorsalgia, unspecified (principal)
CPT/HCPCS: 97113; 97162; 97530

== ENCOUNTER → 2019-02-15 11:23 | Outpatient (CLI) | payer MEDICARE, OTHER, SELFPAY ==
[2018-12-14 08:11] VITALS: BMI 47.0
--- NOTE | 2019-02-15 11:30 | RAD_ITS ---
STUDY: X-RAY CHEST REASON FOR EXAM: Female, 63 years old. Cough. TECHNIQUE: PA and lateral views of the chest. COMPARISON: Comparison is made with prior study dated February 23, 2016. FINDINGS: A right-sided portacatheter is seen with the tip in the right atrium. Persistent right infrahilar infiltrate. There is no demonstrated pleural abnormality. Normal size heart. Normal mediastinum and irena. Normal visualized pulmonary arteries. There is atherosclerotic tortuosity of the aortic arch and descending thoracic aorta. There are diffuse degenerative changes of the visualized thoracic spine. Normal visualized ribs, clavicles, and shoulders. There is no demonstrated abnormality of the visualized soft tissue structures of the upper abdomen. RAD/Chest PA and Lateral IMPRESSION: Focal right lower lobe infiltrate. Electronically Signed: Raul Padilla, at 11:47 EDT , Service support ,
== END ==
PROVIDERS: Family Provider Internal Medicine; PCP Internal Medicine; Referring Provider Nurse Practitioner; Visit Provider Nurse Practitioner
DX: R05 Cough (principal)
CPT/HCPCS: 71046

== ENCOUNTER → 2019-03-01 15:02 | Outpatient (CLI) | payer MEDICARE, OTHER, SELFPAY ==
[2018-12-14 08:11] VITALS: BMI 47.0
[2019-03-01 15:36] LABS: Absolute Lymphocyte Count 2.91 X10^3/uL (0.83-4.51); Absolute Neutrophil Count 7.2 X10^3/uL (2.0-7.7); Basophil% 0.9 % (0-1); Eosinophil# 0.25 X10^3/uL; Eosinophils% 2.2 % (0-5); Hematocrit 43.8 % (37-47); Hemoglobin 13.6 g/dL (12.0-15.0); Lymphocyte # 2.91 X10^3/ul (4.0); Lymphocyte % 25.9 % (19-41); Mean Corp Hgb Conc 31.1 g/dL (32-36); Mean Corpuscular Hgb 29.3 pg (27.0-32.0); Mean Corpuscular Volume 94.4 fL (81-99); Mean Platelet Vol. 9.3 fl (6.2-12.0); Monocyte# 0.75 X10^3/uL; Monocyte% 6.7 % (0-10); NRBC Flagged by Analyzer 0 % (0-5); Neutrophil # 7.17 X10^3/uL (2.7-7.7); Neutrophil % 63.8 % (47-70); Platelet Count 498 K/mm3 (150-450); RBC Distribution Width CV 13.4 % (11.6-14.6); RBC Distribution Width SD 46.1 fl (35.1-43.9); Red Blood Count 4.64 M/mm3 (4.2-5.4); White Blood Count 11.2 K/mm3 (4.4-11.0)
[2019-03-01 16:01] LABS: ALB/GLOB Ratio 1.1 RATIO (0.9-2.4); AST(SGOT) 13 U/L (15-37); Alanine Aminotransfer ALT/SGPT 15 U/L (13-56); Albumin, Serum 3.3 g/dL (3.2-5.0); Alkaline Phosphatase 83 U/L (45-117); Anion Gap 4 (5-15); BUN 14 mg/dL (7-18); BUN/Creat Ratio 20.2 RATIO (10-20); Calcium,Total 8.5 mg/dL (8.5-10.1); Chloride 108 mmol/L (98-107); Creatinine, Serum 0.69 mg/dL (0.55-1.02); EST Glomerular Filtration Rate 90 mL/min (>60); Est Glom Filt Rate - Afr Amer 109 mL/min (>60); Globulin 2.9 g/dL (2.2-4.2); Glucose 90 mg/dL (74-106); Potassium 4.3 mmol/L (3.5-5.1); Protein, Total 6.2 g/dL (6.4-8.2); Sodium Level 140 mmol/L (136-145); Thyroid Stim Hormone (TSH) 1.85 uIU/mL (0.358-3.74)
[2019-03-02 12:26] LABS: Hepatitis C Antibody Non-Reactive (Nonreactive); Vitamin D,25 Hydroxy 16.8 ng/mL (29.95-100.01)
== END ==
PROVIDERS: Family Provider Internal Medicine; PCP Internal Medicine; Referring Provider Family Medicine Geriatric Medicine; Visit Provider Family Medicine Geriatric Medicine
DX: Z13.89 Encounter for screening for other disorder (principal); E55.9 Vitamin D deficiency, unspecified; I10 Essential (primary) hypertension
CPT/HCPCS: 36591; 80053; 82306; 84443; 85025; 86803; A4216

== ENCOUNTER → 2019-03-11 11:25 | Outpatient (CLI) | payer MEDICARE, OTHER, SELFPAY ==
[2018-12-14 08:11] VITALS: BMI 47.0
--- NOTE | 2019-03-11 11:35 | RAD_ITS ---
STUDY: X-RAY CHEST REASON FOR EXAM: Female, 63 years old. Cough, pneumonia TECHNIQUE: PA and lateral views of the chest. COMPARISON: 02/15/2019 FINDINGS: Right internal jugular chest port which is unchanged. The lungs are clear and expanded. There is no demonstrated pleural abnormality. Normal size heart. Normal mediastinum and irena. Normal visualized pulmonary arteries. Normal visualized aortic arch and descending thoracic aorta. Normal visualized thoracic spine. Normal visualized ribs, clavicles, and shoulders. There is no demonstrated abnormality of the visualized soft tissue structures of the upper abdomen. RAD/Chest PA and Lateral IMPRESSION: Normal x-ray examination of the chest. Electronically Signed: Dino Augustin MD at 12:01 EDT Tel , Service support ,
== END ==
PROVIDERS: Family Provider Family Medicine Geriatric Medicine; PCP Family Medicine Geriatric Medicine; Referring Provider Family Medicine Geriatric Medicine; Visit Provider Family Medicine Geriatric Medicine
DX: J18.9 Pneumonia, unspecified organism (principal); M79.10 Myalgia, unspecified site
CPT/HCPCS: 71046; 87633

== ENCOUNTER → 2019-03-17 12:11 | Outpatient (CLI) | payer MEDICARE, OTHER, SELFPAY ==
[2018-12-14 08:11] VITALS: BMI 47.0
[2019-03-17 13:02] LABS: Amphetamine Urine VISTA NEGATIVE (<1000 ng/mL); Barbiturate Urine VISTA NEGATIVE (< 200 ng/mL); Benzodiazepine Urine VISTA NEGATIVE (< 200 ng/mL); Cocaine Urine VISTA NEGATIVE (< 300 ng/mL); Ecstacy Urine VISTA NEGATIVE (< 500 ng/mL); Methadone Urine VISTA NEGATIVE (< 300 ng/mL); PCP Urine VISTA NEGATIVE (< 25 ng/mL); THC Urine VISTA NEGATIVE (< 50 ng/mL); Vista UDS pH Range 6
== END ==
PROVIDERS: Family Provider Family Medicine Geriatric Medicine; PCP Family Medicine Geriatric Medicine; Referring Provider Anesthesiology Pain Medicine; Visit Provider Anesthesiology Pain Medicine
DX: F11.20 Opioid dependence, uncomplicated (principal)
CPT/HCPCS: 80307

== ENCOUNTER → 2019-03-28 12:42 | Outpatient (CLI) | payer MEDICARE, OTHER, SELFPAY ==
[2018-12-14 08:11] VITALS: BMI 47.0
--- NOTE | 2019-03-28 14:10 | VDLE_ITS ---
Reason For Study: Edema RIGHT LEFT GSV is normal. GSV is normal. CFV is compressible, spontaneous, phasic, CFV is compressible, spontaneous, phasic, competent and demonstrates normal competent, and demonstrates normal augmentation. augmentation. FV is compressible, spontaneous, phasic, FV is compressible, spontaneous, phasic, competent and demonstrates normal competent and demonstrates normal augmentation. augmentation. POP V is compressible, spontaneous, phasic, POP V is compressible, spontaneous, phasic, competent and demonstrates normal competent and demonstrates normal augmentation. augmentation. T/P Trunk is compressible. T/P Trunk is compressible. PTV is compressible. PTV is compressible. RT PerV is compressible. LT PerV is compressible. Procedure Structure noted in the left popliteal fossa Exam performed in department. measuring approximent 0.86 x 2.06 x 5.71 cm. A preliminary report was called and/or faxed to [facility]. Interpretation Summary Deep veins of the lower extremities are bilaterally patent and compressible segmentally. There is no evidence of deep vein thrombosis on either side. Valvular competence appears intact within the proximal deep venous systems bilaterally. The great saphenous veins appear bilaterally patent and compressible segmentally. A non-vascular structure is noted in the left popliteal space, measuring 0.86 cm x 2.06 cm x 5.71 cm. This probably represents a popliteal cyst. Clinical correlation is advised. Ordering Physician: Kirill Banks Referring Physician: Julian Brand Chi Performed By: Milady Currie RVT
== END ==
PROVIDERS: Family Provider Family Medicine Geriatric Medicine; PCP Family Medicine Geriatric Medicine; Referring Provider Internal Medicine Pulmonary Disease; Visit Provider Internal Medicine Pulmonary Disease
DX: R60.9 Edema, unspecified (principal); R06.00 Dyspnea, unspecified; Z86.718 Personal history of other venous thrombosis and embolism
CPT/HCPCS: 93970

== ENCOUNTER → 2019-06-28 13:18 | Outpatient (CLI) | payer MEDICARE, OTHER, SELFPAY ==
[2018-12-14 08:11] VITALS: BMI 47.0
[2019-06-28 17:46] LABS: Absolute Lymphocyte Count 2.91 X10^3/uL (0.83-4.51); Absolute Neutrophil Count 4.2 X10^3/uL (2.0-7.7); Basophil# 0.07 X10^3/uL; Basophil% 0.9 % (0-1); Eosinophil# 0.23 X10^3/uL; Eosinophils% 2.9 % (0-5); Hematocrit 42.9 % (37-47); Hemoglobin 13.1 g/dL (12.0-15.0); Lymphocyte # 2.91 X10^3/ul (4.0); Lymphocyte % 36.2 % (19-41); Mean Corp Hgb Conc 30.5 g/dL (32-36); Mean Corpuscular Volume 94.9 fL (81-99); Mean Platelet Vol. 10.5 fl (6.2-12.0); Monocyte# 0.63 X10^3/uL; Monocyte% 7.8 % (0-10); NRBC Flagged by Analyzer 0 % (0-5); Neutrophil # 4.18 X10^3/uL (2.7-7.7); Platelet Count 429 K/mm3 (150-450); RBC Distribution Width SD 45.3 fl (35.1-43.9); Red Blood Count 4.52 M/mm3 (4.2-5.4)
[2019-06-28 18:03] LABS: ALB/GLOB Ratio 0.9 RATIO (0.9-2.4); AST(SGOT) 21 U/L (15-37); Alanine Aminotransfer ALT/SGPT 34 U/L (13-56); Albumin, Serum 3.3 g/dL (3.2-5.0); Alkaline Phosphatase 105 U/L (45-117); Anion Gap 5 (5-15); BUN 15 mg/dL (7-18); BUN/Creat Ratio 24.5 RATIO (10-20); Calcium,Total 8.8 mg/dL (8.5-10.1); Chloride 103 mmol/L (98-107); Creatinine, Serum 0.61 mg/dL (0.55-1.02); EST Glomerular Filtration Rate 104 mL/min (>60); Est Glom Filt Rate - Afr Amer 126 mL/min (>60); Globulin 3.5 g/dL (2.2-4.2); Glucose 81 mg/dL (74-106); Potassium 4.2 mmol/L (3.5-5.1); Protein, Total 6.8 g/dL (6.4-8.2); Sodium Level 138 mmol/L (136-145); Thyroid Stim Hormone (TSH) 3.21 uIU/mL (0.358-3.74)
== END ==
PROVIDERS: PCP Family Medicine Geriatric Medicine; Visit Provider Family Medicine Geriatric Medicine
DX: I10 Essential (primary) hypertension (principal); E55.9 Vitamin D deficiency, unspecified
CPT/HCPCS: 36415; 80053; 82306; 84443; 85025

== ENCOUNTER → 2019-09-27 16:32 | Outpatient (CLI) | payer MEDICARE, OTHER, SELFPAY ==
[2018-12-14 08:11] VITALS: BMI 47.0
--- NOTE | 2019-09-27 16:38 | CT_ITS ---
We are attempting to reach an attending provider to discuss findings. An addendum with communication details will be sent when the communication is complete. STUDY: CTA CHEST REASON FOR EXAM: Female, 63 years old. PE SUSPECTED, SOB RADIATION DOSAGE (If Supplied By Facility): CTDIvol = ( 14.895 ) mGy, DLP = ( 500.32 ) mGycm TECHNIQUE: The examination was performed with the intravenous administration of IV 100mL Isovue-370. Post-processing of the angiographic images was performed, with multiplanar reformation and 3D reconstruction. Individualized dose optimization techniques were used for this CT. COMPARISON: March 11, 2019 chest x-ray FINDINGS: Normal enhancement of the main pulmonary artery and right and left pulmonary arteries. There is limited enhancement of the bilateral peripheral pulmonary arteries. There is no demonstrated major central pulmonary embolism. Beam hardening artifact from intravenous contrast in the superior vena cava and causes local image degradation. Normal thoracic aorta and visualized great vessels. There is no demonstrated aortic dissection. Normal heart and pericardium. Calcific coronary artery disease. Normal mediastinum. Normal hilar regions. Normal visualized trachea and bronchi. Patchy nodular bilateral groundglass faint opacities measuring 7 mm in the left lower lobe image #90. Normal pulmonary parenchyma. Normal pleura. Normal chest wall structures. Normal osseous structures. Normal visualized upper abdomen. IMPRESSION: No major central pulmonary emboli but smaller peripheral emboli would be difficult to exclude due to technique. Innumerable diffuse groundglass nodules typical for covid 19 although other etiologies not excluded such as drug toxicity or connective tissue disease. Electronically Signed: Vikash Johnson MD at 18:49 EDT , Service support , CT/CTA Chest W/WO Contrast
[2019-09-27 16:53] LABS: Absolute Lymphocyte Count 2.83 X10^3/uL (0.83-4.51); Absolute Neutrophil Count 4.2 X10^3/uL (2.0-7.7); Basophil# 0.06 X10^3/uL; Basophil% 0.8 % (0-1); Eosinophil# 0.28 X10^3/uL; Eosinophils% 3.5 % (0-5); Hematocrit 42.5 % (37-47); Hemoglobin 13.1 g/dL (12.0-15.0); Lymphocyte # 2.83 X10^3/ul (4.0); Lymphocyte % 35.6 % (19-41); Mean Corp Hgb Conc 30.8 g/dL (32-36); Mean Corpuscular Hgb 29.1 pg (27.0-32.0); Mean Corpuscular Volume 94.4 fL (81-99); Mean Platelet Vol. 9.6 fl (6.2-12.0); Monocyte# 0.58 X10^3/uL; Monocyte% 7.3 % (0-10); NRBC Flagged by Analyzer 0 % (0-5); Neutrophil # 4.17 X10^3/uL (2.7-7.7); Neutrophil % 52.5 % (47-70); Platelet Count 410 K/mm3 (150-450); RBC Distribution Width CV 13.2 % (11.6-14.6); White Blood Count 7.9 K/mm3 (4.4-11.0)
[2019-09-27 17:30] LABS: AST(SGOT) 16 U/L (15-37); Alanine Aminotransfer ALT/SGPT 21 U/L (13-56); Albumin, Serum 3.3 g/dL (3.2-5.0); Alkaline Phosphatase 71 U/L (45-117); Anion Gap 1 (5-15); BUN 15 mg/dL (7-18); Chloride 105 mmol/L (98-107); Creatinine, Serum 0.71 mg/dL (0.55-1.02); EST Glomerular Filtration Rate 87 mL/min (>60); Est Glom Filt Rate - Afr Amer 105 mL/min (>60); Globulin 3.3 g/dL (2.2-4.2); Glucose 95 mg/dL (74-106); Protein, Total 6.6 g/dL (6.4-8.2); Sodium Level 140 mmol/L (136-145); Thyroid Stim Hormone (TSH) 5.78 uIU/mL (0.358-3.74)
== END ==
PROVIDERS: PCP Family Medicine Geriatric Medicine; Visit Provider Family Medicine Geriatric Medicine
DX: I10 Essential (primary) hypertension (principal); I26.99 Other pulmonary embolism without acute cor pulmonale
CPT/HCPCS: 36415; 71275; 80053; 84443; 85025; Q9967

== ENCOUNTER → 2019-09-29 11:34 | Outpatient (CLI) | payer MEDICARE, OTHER, SELFPAY ==
[2018-12-14 08:11] VITALS: BMI 47.0
== END ==
PROVIDERS: PCP Family Medicine Geriatric Medicine; Referring Provider Family Medicine Geriatric Medicine; Visit Provider Family Medicine Geriatric Medicine
DX: Z03.818 Encounter for observation for suspected exposure to other biological agents ruled out (principal)
CPT/HCPCS: 87633; 87635; G2023; U0002; U0004

== ENCOUNTER → 2019-11-29 11:15 | Outpatient (CLI) | payer MEDICARE, OTHER, SELFPAY ==
[2018-12-14 08:11] VITALS: BMI 47.0
[2019-11-29 12:40] LABS: Anion Gap 10 (5-15); BUN 45 mg/dL (7-18); BUN/Creat Ratio 31.9 RATIO (10-20); Calcium,Total 8.9 mg/dL (8.5-10.1); Chloride 97 mmol/L (98-107); Creatinine, Serum 1.41 mg/dL (0.55-1.02); EST Glomerular Filtration Rate 40 mL/min (>60); Est Glom Filt Rate - Afr Amer 48 mL/min (>60); Glucose 105 mg/dL (74-106); Potassium 3.8 mmol/L (3.5-5.1); Sodium Level 139 mmol/L (136-145)
[2019-11-29 14:36] LABS: M R Staph aureus DNA By PCR Negative (Negative); Probe Check PASS; Specimen Processing Control PASS
[2019-11-30 10:05] LABS: Staph aureus DNA By PCR NEGATIVE (Negative)
== END ==
PROVIDERS: PCP Family Medicine Geriatric Medicine; Visit Provider Family Medicine Geriatric Medicine
DX: R60.9 Edema, unspecified (principal); S81.801D Unspecified open wound, right lower leg, subsequent encounter; B95.62 Methicillin resistant Staphylococcus aureus infection as the cause of diseases classified elsewhere
CPT/HCPCS: 36415; 80048; 87070; 87077; 87186; 87205; 87640

== ENCOUNTER → 2019-12-05 16:48 | Outpatient (CLI) | payer MEDICARE, OTHER, SELFPAY ==
[2018-12-14 08:11] VITALS: BMI 47.0
[2019-12-05 17:12] LABS: Absolute Lymphocyte Count 0.92 X10^3/uL (0.83-4.51); Absolute Neutrophil Count 10.8 X10^3/uL (2.0-7.7); Basophil# 0.03 X10^3/uL; Basophil% 0.2 % (0-1); Eosinophil# 0.02 X10^3/uL; Eosinophils% 0.2 % (0-5); Hematocrit 43.1 % (37-47); Hemoglobin 13.2 g/dL (12.0-15.0); Lymphocyte # 0.92 X10^3/ul (4.0); Lymphocyte % 7.4 % (19-41); Mean Corp Hgb Conc 30.6 g/dL (32-36); Mean Corpuscular Hgb 30.4 pg (27.0-32.0); Mean Corpuscular Volume 99.3 fL (81-99); Mean Platelet Vol. 10.1 fl (6.2-12.0); Monocyte# 0.51 X10^3/uL; Monocyte% 4.1 % (0-10); NRBC Flagged by Analyzer 0 % (0-5); Neutrophil # 10.81 X10^3/uL (2.7-7.7); Neutrophil % 87.1 % (47-70); Platelet Count 367 K/mm3 (150-450); RBC Distribution Width SD 50.9 fl (35.1-43.9); Red Blood Count 4.34 M/mm3 (4.2-5.4); White Blood Count 12.4 K/mm3 (4.4-11.0)
[2019-12-05 17:33] LABS: AST(SGOT) 12 U/L (15-37); Alanine Aminotransfer ALT/SGPT 27 U/L (13-56); Albumin, Serum 3.3 g/dL (3.2-5.0); Alkaline Phosphatase 75 U/L (45-117); Anion Gap 2 (5-15); BUN 35 mg/dL (7-18); BUN/Creat Ratio 35.9 RATIO (10-20); Calcium,Total 8.8 mg/dL (8.5-10.1); Chloride 106 mmol/L (98-107); Creatinine, Serum 0.98 mg/dL (0.55-1.02); EST Glomerular Filtration Rate 61 mL/min (>60); Est Glom Filt Rate - Afr Amer 73 mL/min (>60); Globulin 3.3 g/dL (2.2-4.2); Glucose 105 mg/dL (74-106); Potassium 4.7 mmol/L (3.5-5.1); Protein, Total 6.6 g/dL (6.4-8.2); Sodium Level 140 mmol/L (136-145)
== END ==
PROVIDERS: PCP Family Medicine Geriatric Medicine; Visit Provider Family Medicine Geriatric Medicine
DX: R10.30 Lower abdominal pain, unspecified (principal)
CPT/HCPCS: 36415; 80053; 85025

== ENCOUNTER → 2019-12-05 17:15 | Outpatient (CLI) | payer MEDICARE, OTHER, SELFPAY ==
[2018-12-14 08:11] VITALS: BMI 47.0
--- NOTE | 2019-12-05 19:32 | CT_ITS ---
HISTORY: PT STATED RLQ ABDOM PAIN, HX OF MULTIPLE BOWEL RESECTIONS, HYSTERECTOMY TECHNIQUE: Helically acquired images were obtained of the abdomen and pelvis following the intravenous administration of 100 ML of Isovue-370 Iodinated contrast. Gastrografin oral contrast was administered. 2D reformats. No oral contrast was administered. A radiation dose optimization technique was used for this scan. COMPARISON: CT scan of the abdomen and pelvis comparison most recently is August 18, 2016. CT scan of the chest comparison is from September 27, 2019 FINDINGS: # of images incl. paperwork: [id number] LUNG BASES: Within the posterior aspect of the left lower lobe, series 2 image 14, there is an ill-defined 7 mm lesion consistent with a pulmonary nodule. This was present on the September 27, 2019 study and is unchanged. It was present on the 2017 CT scan the abdomen and pelvis as well. It has not increased in size, and therefore, is consistent with benignity. Some age-related fibrotic lung disease is present. The heart is mildly enlarged. Coronary artery calcific ASCVD is present. Hyperdense structure within the SVC likely represents a central venous catheter CT abdomen: Multilevel degenerative disc disease is present. Superior endplate fractures with wedging 2 vertebral bodies are present within the T12, L1, L2, and L3 levels. Some bowing to the superior endplate of L5 without wedging is also present. This disease was present on the 2017 study, but there may be further progression of the wedging since that time, but with unlikely to be acute fractures. The kyphosis at the thoracolumbar junction has progressed. Bone cement within the L3 vertebral body was also present on the previous study as well. SI joints are symmetric. Both hips are well-seated within their respective acetabula The gallbladder is distended with a rim calcified gallstone. The gallstone measures 2.5 cm in diameter. No biliary ductal dilatation is perceived The gallstone was present on the August 18, 2016 study. Liver, spleen, pancreas, and adrenal glands, are normal. No hydronephrosis. Tiny 2 mm nonobstructing right nephrolith.. Dense focal calcific plaque is present within the origin of the left renal artery. The aorta is tortuosity to the descending thoracic aorta without aneurysm or dissection. CT pelvis: No ascites is present. The uterus has been resected. The appendix has been resected. The bladder is decompressed. The ascending and hepatic flexure of colon have been resected. There is a new anastomosis between small bowel and the transverse colon by the level of the umbilicus. Almost all of the ingested oral contrast is present within the very distal small bowel and the transverse colon. Bowel gas pattern otherwise is normal. CT/Abdomen/Pelvis WITH Contrast IMPRESSION: Distended gallbladder with 2.4 cm gallstone. The gallstone was present on the previous study of August 18, 2016. Findings are nonspecific for acute cholecystitis. As the patient already has had adequate imaging of the liver, pancreas, kidneys, aorta, and IVC, if there is concern for the possibility of acute cholecystitis, a dedicated and isolated gallbladder ultrasound without any additional imaging of the liver, kidneys, aorta, IVC, and pancreas, may be beneficial to further elucidate the possibility of acute cholecystitis. Individualized dose optimization techniques were used for this CT. at 2049 Reported and signed by: Bismark Moore MD Electronically Signed: Bismark Moore MD at 20:48 EDT Tel , Service support ,
== END ==
PROVIDERS: PCP Family Medicine Geriatric Medicine; Referring Provider Family Medicine Geriatric Medicine; Visit Provider Family Medicine Geriatric Medicine
DX: R10.30 Lower abdominal pain, unspecified (principal)
CPT/HCPCS: 36415; 74177; 80053; 85025; Q9967

== ENCOUNTER → 2019-12-06 10:59 | Outpatient (CLI) | payer MEDICARE, OTHER, SELFPAY ==
[2018-12-14 08:11] VITALS: BMI 47.0
--- NOTE | 2019-12-06 11:10 | US_ITS ---
STUDY: ABDOMINAL ULTRASOUND - RIGHT UPPER QUADRANT REASON FOR VISIT: Female, 64 years old F/U GB CALCULUS SEEN ON 12/05/19 CT TECHNIQUE: Ultrasound evaluation of the right upper quadrant was performed with real-time and static sun-scale imaging. TECHNICAL QUALITY: Adequate. COMPARISON: Comparison is made with prior CT scan of the abdomen dated December 05, 2019. FINDINGS: Liver: The liver is slightly enlarged and measures 18.1 cm. There is increased echogenicity consistent with fatty infiltration. The bile ducts are within normal limits. There is hepatic color flow. The direction of portal flow is hepatopetal. There is no demonstrated mass lesion. Gallbladder: Normal distended gallbladder. The gallbladder wall measures 2.5 mm. There is a positive sonographic Bishop''s sign. There is no pericholecystic fluid. There is a solitary echogenic gallstone within the gallbladder. This measures 3.4 cm x 2.9 cm x 1.8 Common Bile Duct (C.B.D.): The common bile duct measures 3.5 mm. Pancreas: There is nonvisualization of the pancreas due to overlying bowel gas. Right Kidney: Normal size of the right kidney. The right kidney measures 10.5 cm x 5.3 cm x 4.5 cm. Normal renal cortex. The right cortex measures 1.2 cm. There is no demonstrated renal mass or cyst. There is no right hydronephrosis. US/Abdomen Limited IMPRESSION: Mild hepatomegaly and fatty infiltration of the liver. Solitary gallstone. Electronically Signed: Raul Padilla, at 12:25 EDT , Service support ,
== END ==
PROVIDERS: PCP Family Medicine Geriatric Medicine; Referring Provider Family Medicine Geriatric Medicine; Visit Provider Family Medicine Geriatric Medicine
DX: K80.20 Calculus of gallbladder without cholecystitis without obstruction (principal)
CPT/HCPCS: 76705

== ENCOUNTER 2019-12-14 08:30 | Outpatient (RCR) | payer MEDICARE, OTHER, SELFPAY ==
[2018-12-14 08:11] VITALS: BMI 47.0
[2019-12-07 08:43] VITALS: BP 152/67; PULSE 91; RESP 18; TEMP 36.6; BMI 44.1
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
[2019-12-14 09:03] VITALS: RESP 18; TEMP 36.6; BMI 44.1
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
== END 2019-12-23 23:59 ==
LOC: WC 08:30
PROVIDERS: PCP Family Medicine Geriatric Medicine; Referring Provider Family Medicine Geriatric Medicine; Visit Provider Nurse Practitioner
DX: L98.492 Non-pressure chronic ulcer of skin of other sites with fat layer exposed (principal); I27.20 Pulmonary hypertension, unspecified; M51.37 Other intervertebral disc degeneration, lumbosacral region; I89.0 Lymphedema, not elsewhere classified; M81.0 Age-related osteoporosis without current pathological fracture; M19.90 Unspecified osteoarthritis, unspecified site; Z79.52 Long term (current) use of systemic steroids; Z85.828 Personal history of other malignant neoplasm of skin; G47.33 Obstructive sleep apnea (adult) (pediatric); J44.9 Chronic obstructive pulmonary disease, unspecified; I10 Essential (primary) hypertension; K50.90 Crohn's disease, unspecified, without complications; E66.9 Obesity, unspecified
CPT/HCPCS: 11042; 87070; 87075; 87205; 99213; G0463

== ENCOUNTER → 2019-12-21 16:17 | Outpatient (CLI) | payer MEDICARE, OTHER, SELFPAY ==
[2019-12-14 09:03] VITALS: BMI 44.1
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
== END ==
PROVIDERS: PCP Family Medicine Geriatric Medicine; Referring Provider Family Medicine Geriatric Medicine; Visit Provider Family Medicine Geriatric Medicine
DX: R10.30 Lower abdominal pain, unspecified (principal)
CPT/HCPCS: 74019

== ENCOUNTER 2020-01-18 08:30 | Outpatient (RCR) | payer MEDICARE, OTHER, SELFPAY ==
[2019-12-24 00:40] VITALS: BP 152/67; PULSE 91; RESP 18; TEMP 36.6
[2019-12-28 08:09] VITALS: BP 143/77; PULSE 125; RESP 18; TEMP 36.5; BMI 44.1
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
[2020-01-04 07:57] VITALS: BP 190/90; PULSE 94; RESP 18; TEMP 36.4; BMI 44.1
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
[2020-01-11 08:15] VITALS: BP 160/96; PULSE 93; RESP 16; TEMP 36.2; BMI 44.1
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
[2020-01-18 08:48] VITALS: BP 132/73; PULSE 108; RESP 18; TEMP 36.4; BMI 44.1
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
== END 2020-01-23 23:59 ==
LOC: WC 08:30
PROVIDERS: PCP Family Medicine Geriatric Medicine; Referring Provider Family Medicine Geriatric Medicine; Visit Provider Nurse Practitioner
DX: L97.811 Non-pressure chronic ulcer of other part of right lower leg limited to breakdown of skin (principal); I89.0 Lymphedema, not elsewhere classified; M54.5 Low back pain; R60.0 Localized edema; E66.9 Obesity, unspecified; L97.812 Non-pressure chronic ulcer of other part of right lower leg with fat layer exposed; L08.9 Local infection of the skin and subcutaneous tissue, unspecified
CPT/HCPCS: 11042; 97597

== ENCOUNTER 2020-02-01 08:35 | Outpatient (RCR) | payer MEDICARE, OTHER, SELFPAY ==
[2020-01-24 00:41] VITALS: BP 132/73; PULSE 108; RESP 18; TEMP 36.4
[2020-02-01 08:46] VITALS: BP 116/77; PULSE 94; RESP 20; TEMP 35.9; BMI 44.1
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
== END 2020-02-22 23:59 ==
LOC: WC 08:35
PROVIDERS: PCP Family Medicine Geriatric Medicine; Referring Provider Family Medicine Geriatric Medicine; Visit Provider Nurse Practitioner
DX: L97.812 Non-pressure chronic ulcer of other part of right lower leg with fat layer exposed (principal); M54.5 Low back pain; I89.0 Lymphedema, not elsewhere classified; E66.9 Obesity, unspecified; Z79.52 Long term (current) use of systemic steroids; M79.89 Other specified soft tissue disorders
CPT/HCPCS: 11042

== ENCOUNTER 2020-02-03 12:29 | Inpatient (IN) | payer MEDICARE, OTHER, SELFPAY ==
[2020-02-03] VITALS (25 sets, daily range): BP systolic 81–132; BP diastolic 35–95; PULSE 60–164; RESP 17–25; TEMP 36.6–37; O2SAT 92–100; BMI 26.8; BMI 45.7
--- NOTE | 2020-02-03 12:54 | EKG12_ITS ---
Test Reason : CHEST OTHER Blood Pressure : / mmHG Vent. Rate : 153 BPM Atrial Rate : 170 BPM P-R Int : 000 ms QRS Dur : 076 ms QT Int : 246 ms P-R-T Axes : 000 042 037 degrees QTc Int : 392 ms Atrial fibrillation with rapid ventricular response Abnormal ECG Confirmed by NANCI STEARNS, RUBIN ([id number]), editorial assistant KERRY SOLANO ([id number]) on 02/06/2020 1:16:00 PM Referred By: Confirmed By:RUBIN CHRISTINE MD
--- NOTE | 2020-02-03 12:56 | ED.VIS.GEN ---
History of Present Illness Chief Complaint: Chest Other Informant: Patient Narrative: Patient presents the emergency department after being referred here by her primary care physician for the evaluation of new onset A. fib with RVR. Patient states that she has been short of breath for the past week is been experiencing palpitations. Her dyspnea on exertion has continually worsened and she has been not able to do really anything but set. She has been seen at the wound care clinic recently for a chronic wound of the right leg. She has bilateral significant lymphedema which she states is worsened. The patient states that she has primary immune deficiency disorder and received IVIG yesterday in [place]. And notes a history of pulmonary hypertension. She also has a history of asthma. EKG in the office today demonstrated A. fib with RVR at a rate of 150. She had a pulmonary embolism several years ago and completed 6 months of Xarelto therapy and has not had recurrence. She has not had a echocardiogram for several years. She is on steroids chronically for Crohn's disease. Past Medical History - Allergies and Home Meds Allergies/Adverse Reactions: Allergies codeine Allergy (Severe, Verified 02/03/20 12:35) SEVERE Penicillins Allergy (Severe, Verified 02/03/20 12:35) Swelling Sulfa (Sulfonamide Antibiotics) Allergy (Severe, Verified 02/03/20 12:35) Swelling sulfasalazine [From Azulfidine] Allergy (Severe, Verified 02/03/20 12:35) Swelling Surgical History: hysterectomy, total knee arthroplasty, - Smoking Status: Former smoker - Family History Maternal Family History: Family History (Last Reviewed 02/03/20 @ 14:14 by Hallie Bailey NP, [employer]) Father Anemia Heart disease Hypertension CVA (cerebral vascular accident) Mother Arthritis Cancer Osteoporosis Sister Arthritis Lung disease Family History: Reports: No pertinent history Paternal Family History: Family History (Last Reviewed 02/03/20 @ 14:14 by Hallie Bailey NP, [employer]) Father Anemia Heart disease Hypertension CVA (cerebral vascular accident) Mother Arthritis Cancer Osteoporosis Sister Arthritis Lung disease Family History: Reports: No pertinent history Review of Systems General: Reports: Malaise. Denies: Chills, Fever, Sweats Eyes: Denies: Visual changes - bilaterally, Diplopia ENT: Denies: Rhinorrhea, Sore throat Cardiovascular: Reports: Palpitations, Heart racing. Denies: Chest pain Respiratory: Reports: Dyspnea, Dyspnea on exertion, Orthopnea. Denies: Cough Gastrointestinal: Denies: Abdominal pain, Nausea, Vomiting, Diarrhea, Melena, Hematochezia Genitourinary: Denies: Dysuria, Hematuria, Frequency Musculoskeletal: Reports: Swelling. Denies: Back pain, Extremity Pain Skin: Reports: Wounds. Denies: Rash Neurological: Denies: Headache, Weakness, Numbness Physical Exam Vital Signs/Narrative: Vital Signs Temp Pulse Resp BP Pulse Ox 02/03/20 12:32 97.8 F 88 20 H 103/59 L 99 Inital Vital Signs reviewed: Yes General: Well nourished, Well developed, Obese, No Acute Distress Head: Normocephalic, Atraumatic Eyes: Perrl, EOMI ENT: Moist mucous membranes, No rhinorrhea Neck: Supple, Nontender Cardiovascular: No murmurs, Irregular, Tachycardia Respiratory: No distress, CTA bilaterally, Chest nontender Abdomen: Soft, Nontender, Nondistended, Normal bowel sounds Back: Nontender, Normal Inspection Extremities: Edema - Patient has 4+ lower extremity edema. Chronic wound to the right lower extremity that is dressed by wound care. Skin: Normal color, No rash Neurological: Alert, Oriented x3, Cranial nerves II-XII grossly intact, Normal Strength, Normal Sensation Psychological: Normal affect, Normal Mood Diagnostic/Tx/Re-eval Laboratory Last Values WBC 17.1 K/mm3 (4.4-11.0) H 02/03/20 13:15 RBC 4.61 M/mm3 (4.2-5.4) 02/03/20 13:15 Hgb 14.0 g/dL (12.0-15.0) 02/03/20 13:15 Hct 45.0 % (37-47) 02/03/20 13:15 MCV 97.6 fL (81-99) 02/03/20 13:15 MCH 30.4 pg (27.0-32.0) 02/03/20 13:15 MCHC 31.1 g/dL (32-36) L 02/03/20 13:15 RDW Std Deviation 51.3 fl (35.1-43.9) H 02/03/20 13:15 RDW Coeff of Curtis 14.3 % (11.6-14.6) 02/03/20 13:15 Plt Count 409 K/mm3 (150-450) 02/03/20 13:15 MPV 9.3 fl (6.2-12.0) 02/03/20 13:15 Immature Gran % (Auto) 2.800 % (0.0-0.9) H 02/03/20 13:15 Neut % (Auto) 87.8 % (47-70) H 02/03/20 13:15 Lymph % (Auto) 4.8 % (19-41) L 02/03/20 13:15 Clinch % (Auto) 4.3 % (0-10) 02/03/20 13:15 Eos % (Auto) 0.1 % (0-5) 02/03/20 13:15 Baso % (Auto) 0.2 % (0-1) 02/03/20 13:15 Absolute Neuts (auto) 15.0 X10^3/uL (2.0-7.7) H 02/03/20 13:15 Absolute Lymphs (auto) 0.82 X10^3/uL (0.83-4.51) L 02/03/20 13:15 Nucleated RBC % 0 % (0-5) 02/03/20 13:15 PT Cancelled 02/03/20 13:15 INR Cancelled 02/03/20 13:15 APTT Cancelled 02/03/20 13:15 Sodium 134 mmol/L (136-145) L 02/03/20 13:15 Potassium 4.3 mmol/L (3.5-5.1) 02/03/20 13:15 Chloride 99 mmol/L (98-107) 02/03/20 13:15 Carbon Dioxide 30.0 mmol/L (21.0-32.0) 02/03/20 13:15 Anion Gap 5 (5-15) 02/03/20 13:15 BUN 33 mg/dL (7-18) H 02/03/20 13:15 Creatinine 1.23 mg/dL (0.55-1.02) H 02/03/20 13:15 Estim Creat Clear Calc 40.48 ml/min 02/03/20 13:15 Est GFR (MDRD) Af Amer 56 mL/min (>60) L 02/03/20 13:15 Est GFR (MDRD) Non-Af 46 mL/min (>60) L 02/03/20 13:15 BUN/Creatinine Ratio 26.8 RATIO (10-20) H 02/03/20 13:15 Glucose 114 mg/dL (74-106) H 02/03/20 13:15 Calcium 8.3 mg/dL (8.5-10.1) L 02/03/20 13:15 Magnesium 2.2 mg/dL (1.6-2.6) 02/03/20 13:15 Total Bilirubin 1.70 mg/dL (0.20-1.00) H 02/03/20 13:15 AST 22 U/L (15-37) 02/03/20 13:15 ALT 24 U/L (13-56) 02/03/20 13:15 Alkaline Phosphatase 92 U/L (45-117) 02/03/20 13:15 Troponin I < 0.015 ng/mL (<0.045) 02/03/20 13:15 B-Natriuretic Peptide 250.2 pg/mL (0-100) H 02/03/20 13:15 Total Protein 6.7 g/dL (6.4-8.2) 02/03/20 13:15 Albumin 2.9 g/dL (3.2-5.0) L 02/03/20 13:15 Globulin 3.8 g/dL (2.2-4.2) 02/03/20 13:15 Albumin/Globulin Ratio 0.8 RATIO (0.9-2.4) L 02/03/20 13:15 TSH 2.62 uIU/mL (0.358-3.74) 02/03/20 13:15 Clinical Impression(s) from Imaging Studies Chest X-Ray 02/03/20 13:37 IMPRESSION: No acute abnormality is present. Electronically Signed: Raul Padilla, at 13:56 EDT , Service support , - EKG Initial EKG Interpretation: Atrial Fibrillation - EKG demonstrates atrial fibrillation with RVR at a rate of 153. No concerning features of ACS. - Medical Decision Making Patient received a dose of Lasix and IV Cardizem. Heart rate slowed to the 110-120 range. Unfortunately her blood pressure dropped into the 80s with this dose. Additional Cardizem was discontinued. I spoke with hospitalist and cardiology were to place her on an amiodarone drip after the bolus. Lovenox was initially ordered but has been held. Her PTT came back very curiously very high. This was drawn off of a porch that was accessed yesterday however she had normal saline running through it. I have asked for a peripheral draw and patient is a very difficult stick. They are going to redraw this on the floor. She will require admission to the hospital. - Critical Care Time Critical care time (excluding procedures): 30-74 minutes - 35 min, Discussing w/Patient &/or Family/Dean Of Men, Discussing w/Consultants, Arranging Admission or Transfer, Performing Direct Patient Care at Bedside ED Disposition - Plan for ED Patient: Disposition: Acute Care Hospital [facility] Diagnosis: New onset a-fib, Pulmonary hypertension, Lymphedema of lower extremity, Hypotension
[2020-02-03 13:24] LABS: Absolute Lymphocyte Count 0.82 X10^3/uL (0.83-4.51); Basophil# 0.04 X10^3/uL; Basophil% 0.2 % (0-1); Eosinophil# 0.01 X10^3/uL; Eosinophils% 0.1 % (0-5); Lymphocyte # 0.82 X10^3/ul (4.0); Lymphocyte % 4.8 % (19-41); Mean Corp Hgb Conc 31.1 g/dL (32-36); Mean Corpuscular Hgb 30.4 pg (27.0-32.0); Mean Corpuscular Volume 97.6 fL (81-99); Mean Platelet Vol. 9.3 fl (6.2-12.0); Monocyte# 0.74 X10^3/uL; Monocyte% 4.3 % (0-10); NRBC Flagged by Analyzer 0 % (0-5); Neutrophil # 14.99 X10^3/uL (2.7-7.7); Neutrophil % 87.8 % (47-70); Platelet Count 409 K/mm3 (150-450); RBC Distribution Width CV 14.3 % (11.6-14.6); RBC Distribution Width SD 51.3 fl (35.1-43.9); Red Blood Count 4.61 M/mm3 (4.2-5.4); White Blood Count 17.1 K/mm3 (4.4-11.0)
[2020-02-03] MEDS: dilTIAZem 25 MG/5 ML Vial 10 MG IV BOLUS (13:27)
--- NOTE | 2020-02-03 13:37 | RAD_ITS ---
STUDY: X-RAY CHEST REASON FOR EXAM: Female, 64 years old. HEART RACING PER PATIENT. NEW ONSET OF AFIB TECHNIQUE: Single AP portable view of the chest. COMPARISON: Comparison is made with prior examination dated 03/11/2019. FINDINGS: A right-sided portacatheter is seen with the tip in the right atrium. EKG electrodes are seen. Postsurgical changes are seen in the left lung apex. No acute abnormalities. There is no demonstrated pleural abnormality. Normal size heart. Normal mediastinum and irena. Normal visualized pulmonary arteries. There is atherosclerotic tortuosity of the aortic arch and descending thoracic aorta. There are diffuse degenerative changes of the visualized thoracic spine. Normal visualized ribs, clavicles, and shoulders. There is no demonstrated abnormality of the visualized soft tissue structures of the upper abdomen. RAD/Chest 1 View (Portable) IMPRESSION: No acute abnormality is present. Electronically Signed: Raul Padilla, at 13:56 EDT , Service support ,
[2020-02-03 13:44] LABS: BNP,B-Type NATRIURETIC PEPTIDE 250.2 pg/mL (0-100)
[2020-02-03 13:46] LABS: ALB/GLOB Ratio 0.8 RATIO (0.9-2.4); AST(SGOT) 22 U/L (15-37); Alanine Aminotransfer ALT/SGPT 24 U/L (13-56); Albumin, Serum 2.9 g/dL (3.2-5.0); Alkaline Phosphatase 92 U/L (45-117); Anion Gap 5 (5-15); BUN 33 mg/dL (7-18); BUN/Creat Ratio 26.8 RATIO (10-20); Calcium,Total 8.3 mg/dL (8.5-10.1); Chloride 99 mmol/L (98-107); Creatinine, Serum 1.23 mg/dL (0.55-1.02); EST Glomerular Filtration Rate 46 mL/min (>60); Est Glom Filt Rate - Afr Amer 56 mL/min (>60); Estimated Creatinine Clearance 40.48 ml/min; Globulin 3.8 g/dL (2.2-4.2); Glucose 114 mg/dL (74-106); Magnesium 2.2 mg/dL (1.6-2.6); Potassium 4.3 mmol/L (3.5-5.1); Protein, Total 6.7 g/dL (6.4-8.2); Sodium Level 134 mmol/L (136-145); Thyroid Stim Hormone (TSH) 2.62 uIU/mL (0.358-3.74)
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
[2020-02-03] MEDS: Furosemide 100 MG/10 ML Vial 60 MG IV (14:14)
[2020-02-03 14:26] LABS: International Normalized Ratio 1.1; Prothrombin Time (Protime)PT. 13.8 SECONDS (11.7-14.9)
[2020-02-03 14:36] LABS: Partial Thromboplast Time 202.9 Seconds (24.1-36.2)
--- NOTE | 2020-02-03 14:41 | ED.RN ---
lab called critical of .9. dr farias.
[2020-02-03 14:48] LABS: Mucous, Urine 0 SEEN /hpf (<or=2+); Red Blood Cells-Urine 0 SEEN /hpf (0-5); Squamous Epithelial Cells - UA 0 SEEN /hpf (5-10)
[2020-02-03 14:56] LABS: Color, Urine Yellow (Yellow); Glucose, Dipstick Normal (Normal); Ketone-Dipstick 5 mg/dl (Negative); Leukocyte Esterase-Dipstick 25 /ul (Negative); Nitrite-Dipstick Negative (Negative); Occult Blood-Urine Negative /ul (Negative); Protein-Dipstick Negative (Negative); Urine Bilirubin Dipstick Negative (Negative); Urine Clarity Sl. Cloudy (Clear); Urine Urobilinogen Normal (Normal)
--- NOTE | 2020-02-03 15:07 | CON.PCM_ITS ---
Problem List (1) New onset a-fib Status: Acute Reason for Consult Date of Consultation: 02/03/20 Reason for Consultation: Atrial fibrillation with fast ventricular rate History of Present Illness: The patient is a 64 year old F [Referred for assessment of atrial fibrillation with fast ventricular rate. According to the patient she was admitted through the hand surgeon office. She went there for a routine checkup of the lymphedema. In emergency room she was found to have atrial fibrillation and fast ventricular rate. For the last 7 days, patient has been getting shortness of breath on minimal exertion. She claims that this has been new. For the last 6 months, patient has been getting shortness of breath on exertion. Last 3 months this has been worse. 4 years ago patient had pulmonary embolism and was treated for 6 months of Xarelto which was then discontinued. She is known to have hypertension. She is a non-smoker. She is a nondrinker. She has been sleeping on 45 degrees angle for at least 2 years. She denies any history of chest pain, myocardial infarct, TIA or CVA.Patient does have pulmonary hypertension since the pulmonary embolism. She has been followed by welt beater] Past Medical History Allergies/Adverse Reactions: Allergies codeine Allergy (Severe, Verified 02/03/20 12:35) SEVERE Penicillins Allergy (Severe, Verified 02/03/20 12:35) Swelling Sulfa (Sulfonamide Antibiotics) Allergy (Severe, Verified 02/03/20 12:35) Swelling sulfasalazine [From Azulfidine] Allergy (Severe, Verified 02/03/20 12:35) Swelling Home Medications: Ambulatory Orders Medication Instructions Recorded Erythromycin Ophthalmic 1 applic OPHTHALMIC QHS 06/20/14 Budesonide/Formoterol 160/4.5 2 puff INHALATION BID 04/25/16 [Symbicort 160/4.5 Mcg Inhaler (SP)] Diphenoxylate/Atrop [Lomotil] 1 tab PO TID PRN 10/29/16 Sildenafil Citrate [Sildenafil] 20 mg PO TID 08/10/17 Morphine [Morphine IR] 15 mg PO TID 10/05/18 Furosemide [Lasix] 40 mg PO BID 02/03/20 Montelukast [Singulair] 10 mg PO DAILY 02/03/20 Valsartan/Hydrochlorothiazide 1 tab PO DAILY 02/03/20 [Diovan Hct 80-12.5 MG Tablet] Past Medical History (Chronic Problems): Chronic Problems (Last Reviewed 08/26/17 @ 09:59 by Enedina Ambrosio) Lymphedema of lower extremity (Chronic) Skin ulcer of lower leg with fat layer exposed (Chronic) Infected skin ulcer with fat layer exposed (Chronic) Personal history of skin cancer (Chronic) Neoplasm of unspecified behavior of bone, soft tissue, and skin (Chronic) 3 cm lesion anterior frontal scalp Hypogammaglobulinemia (Chronic) IgG subclass deficiency (Chronic) Compression fracture of L1 lumbar vertebra (Chronic) Compression fracture of L2 (Chronic) Compression fracture of L3 lumbar vertebra (Chronic) Osteoporosis (Chronic) Chronic steroid use (Chronic) Degenerative disc disease (Chronic) Constipation (Chronic) Osteoarthritis (Chronic) Pulmonary hypertension (Chronic) Obstructive sleep apnea (Chronic) Constipation due to opioid therapy (Chronic) L3 pathological fracture (Chronic) Lumbosacral spondylosis (Chronic) DDD (degenerative disc disease), lumbosacral (Chronic) Chronic back pain (Chronic) COPD (chronic obstructive pulmonary disease) (Chronic) Hypertension (Chronic) Crohns disease (Chronic) Surgical History: hysterectomy, total knee arthroplasty, - - Multiple small bowel resections, L3 kyphoplasty, right lower extremity surgery, TNA, port placement, left pneumonectomy Psychiatric History: No pertinent psych hx 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/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: No pertinent M48/M60 TANK DRIVER history - *Family History Maternal Family History: Family History (Last Reviewed 02/03/20 @ 14:14 by Hallie Bailey NP, INVENTORY CONTROL/SHIPPING RECEIVING-C) Father Anemia Heart disease Hypertension CVA (cerebral vascular accident) Mother Arthritis Cancer Osteoporosis Sister Arthritis Lung disease History Items: No pertinent history Paternal Family History: Family History (Last Reviewed 02/03/20 @ 14:14 by Hallie Bailey NP, INVENTORY CONTROL/SHIPPING RECEIVING-C) Father Anemia Heart disease Hypertension CVA (cerebral vascular accident) Mother Arthritis Cancer Osteoporosis Sister Arthritis Lung disease History Items: No pertinent history Lives: Alone Smoking Status: Former smoker Alcohol: None Drugs: None Review of Systems - Review of Systems General: Reports: Fatigue, Weakness Cardiovascular: Reports: Shortness of Breath, Shortness of Breath with Exertion, Orthopnea. Denies: Chest Discomfort Gastrointestinal: Denies: Hematemesis, Hematochezia, Melena Genitourinary: Denies: Dysuria, Hematuria Muscoloskeletal: Reports: Back Pain Neurological: Denies: History of TIA, History of CVA Objective: Vital Signs Temp Pulse Resp BP Pulse Ox 97.8 F 153 H 20 H 121/85 H 92 02/03/20 12:32 02/03/20 12:32 02/03/20 12:32 02/03/20 12:32 02/03/20 12:32 Oxygen Flow Rate (L/min) 2 Oxygen Delivery Method Nasal Cannula Weight: 161 lb Body Mass Index (BMI) 26.8 General: Alert, Oriented x 3, Cooperative, No Acute Distress Neck: Supple Lungs: Clear to auscultation Cardiovascular: Irregular Rhythm, No Murmurs - And fast Abdomen: Soft, Non Tender - Obese abdomen Extremities: Bilaterel Edema +4 Skin: Ulcers - Lower extremities 02/03/20 13:15: WBC 17.1 H, RBC 4.61, Hgb 14.0, Hct 45.0, MCV 97.6, MCH 30.4, MCHC 31.1 L, Plt Count 409, MPV 9.3, Immature Gran % (Auto) 2.800 H, Neut % (Auto) 87.8 H, Lymph % (Auto) 4.8 L, [place] % (Auto) 4.3, Eos % (Auto) 0.1, Baso % (Auto) 0.2, Absolute Neuts (auto) 15.0 H, Nucleated RBC % 0 02/03/20 13:15: PT Cancelled, INR Cancelled, APTT Cancelled 02/03/20 13:15: Sodium 134 L, Potassium 4.3, Chloride 99, Carbon Dioxide 30.0, Anion Gap 5, BUN 33 H, Creatinine 1.23 H, Est GFR (MDRD) Af Amer 56 L, Est GFR (MDRD) Non-Af 46 L, BUN/Creatinine Ratio 26.8 H, Glucose 114 H, Calcium 8.3 L, Magnesium 2.2, Total Bilirubin 1.70 H, Troponin I < 0.015 02/03/20 13:15: B-Natriuretic Peptide 250.2 H 02/03/20 14:05: PT 13.8, INR 1.1, APTT 202.9 H* 02/03/20 14:40: Urine Color Yellow, Urine Clarity Sl. Cloudy, Urine pH 5.0, Ur Specific [place] 1.020, Urine Protein Negative, Urine Glucose (UA) Normal, Urine Ketones 5 H, Urine Occult Blood Negative, Urine Nitrite Negative, Urine Bilirubin Negative, Urine Urobilinogen Normal, Ur Leukocyte Esterase 25 H Rhythm: EKG: ECHO: Stress Test: Cardiac Cath: PCI: CT Surgery: Holter monitor: EPS: PPM: CXR: Chest CT Scan: Assessment/Plan Patient has had symptoms for about 1 week of weakness and shortness of breath on minimal exertion. This is most likely the onset time of the atrial fibrillation with fast ventricular rate. Patient denies any chest pain. Troponin is normal. I would recommend IV digoxin 0.5 mg right now. Cardizem 30 mg 4 times a day and continue IV amiodarone drip if blood pressure permissible. Echocardiogram will be obtained. Thyroid profile would be performed. Patient does have stage III renal insufficiency
--- NOTE | 2020-02-03 15:12 | ED.RN ---
lovenox not give per dr. hobson waiting for PT redraw on floor.
--- NOTE | 2020-02-03 15:13 | ED.RN ---
Per dr. Gambino second dose of cardizem not given for HR>100. will continue to monitor the pt.
[2020-02-03 15:23] LABS: Bacteria 1+ /hpf (None Seen); White Blood Cells 0-5 SEEN /hpf (0-5)
--- NOTE | 2020-02-03 15:27 | ECHOCS_ITS ---
Reason For Study: AFib/Flutter Procedure This was a 2D Doppler, Color Flow transthoracic echocardiogram. Technically difficult study due to patient body habitus. Contrast injection performed. Exam performed portable in patient room. Left Ventricle Normal left ventricle. Left ventricular systolic function is hyperdynamic. The estimated ejection fraction is 65 %. No regional wall motion abnormalities noted. Right Ventricle Normal right ventricle. Normal systolic function. Atria The left atrium is mildly enlarged. Normal right atrium. Mitral Valve Trivial mitral valve insufficiency. Tricuspid Valve Unable to estimate RV systolic pressure due to inadequate jet, pulmonary artery pressure probably normal. Mild tricuspid valve insufficiency. Aortic Valve Normal aortic valve. Pulmonic Valve No eccentric pulmonic valve insufficiency. Pericardium/Pleural There is no pleural effusion. Medication Diluted definity 3ml given slow IV push to enhance endocardial definition. MMode/2D Measurements & Calculations LVIDd: 3.7 cm IVSd: 1.2 cm Ao root diam: 3.3 cm LVIDs: 2.8 cm LVPWd: 1.5 cm LA dimension: 4.5 cm FS: 25.6 % LAV(MOD-bp): 69.7 ml LA A4 area: 25.0 cm2 RA A4 area: 14.9 cm2 LAV(MOD-bp) Indexed: 30.8 ml/m2 LAV(MOD-sp2): 61.4 ml LAV(MOD-sp4): 75.0 ml Doppler Measurements & Calculations MV E max mallory: 88.7 cm/sec Ao V2 max: 149.4 cm/sec LV V1 max: 128.6 cm/sec Ao max P.0 mmHg LV V1 max P.8 mmHg PA V2 max: 124.2 cm/sec TR max mallory: 234.4 cm/sec TR max P.0 mmHg Interpretation Summary Left ventricular systolic function is hyperdynamic. The estimated ejection fraction is 65 %. The left atrium is mildly enlarged. Mild tricuspid valve insufficiency. Ordering Physician: Stuart Shepherd Referring Physician: Julian Brand Chi Performed By: Mehdi Hester RCS
[2020-02-03] MEDS: Digoxin 250 MCG/ML Ampul 500 MCG IV (16:21)
[2020-02-03] MEDS: 0.9% Saline Lock 10 ML Syringe IV (16:22)
[2020-02-03 16:53] LABS: Partial Thromboplast Time 22.2 Seconds (24.1-36.2)
[2020-02-03] MEDS: Amiodarone 360 MG in Dextrose 5% Viaflo Bag 192.8 ML 33.3 MG CONT INF (17:14)
[2020-02-03] MEDS: dilTIAZem 30 MG Tablet PO (18:10)
[2020-02-03] MEDS: Digoxin 250 MCG/ML Ampul IV (18:30)
[2020-02-03] MEDS: Furosemide 40 MG Tablet PO (18:31)
[2020-02-03] MEDS: Rivaroxaban 20 MG Tablet PO (18:37)
[2020-02-03 18:50] LABS: T4 Free Direct 1.24 ng/dL (0.76-1.46); Thyroid Stim Hormone (TSH) 2.52 uIU/mL (0.358-3.74)
[2020-02-03] MEDS: SILDENAFIL CITRATE 20 MG TABLET PO (21:05)
[2020-02-03] MEDS: Erythromycin Base 1 OPTH.TUBE 1 APPLIC OPHTHALMIC (21:16)
[2020-02-03] MEDS: morphine SR 15 MG Tablet PO (21:16)
[2020-02-03] MEDS: Amiodarone 360 MG in Dextrose 5% Viaflo Bag 192.8 ML 16.7 MG CONT INF (23:05)
[2020-02-04] VITALS (23 sets, daily range): BP systolic 81–112; BP diastolic 39–82; PULSE 74–137; RESP 17–20; TEMP 36.6–37.1; O2SAT 95–100
[2020-02-04] MEDS: dilTIAZem 30 MG Tablet PO ×3 (04:34→17:43)
--- NOTE | 2020-02-04 06:31 | PCM.HOSP.N ---
Hospitalist Note Overnight patient hypotensive. Held amio drip with improvement and continued oral cardizem. HR improved still, rate 80s. BP low normal.
[2020-02-04 08:07] LABS: Anion Gap 7 (5-15); BUN 34 mg/dL (7-18); BUN/Creat Ratio 32.4 RATIO (10-20); Calcium,Total 7.7 mg/dL (8.5-10.1); Chloride 99 mmol/L (98-107); Creatinine, Serum 1.05 mg/dL (0.55-1.02); EST Glomerular Filtration Rate 56 mL/min (>60); Est Glom Filt Rate - Afr Amer 67 mL/min (>60); Estimated Creatinine Clearance 47.42 ml/min; Glucose 86 mg/dL (74-106); Potassium 4.2 mmol/L (3.5-5.1); Sodium Level 138 mmol/L (136-145)
[2020-02-04] MEDS: predniSONE 20 MG Tablet 40 MG PO (08:51)
[2020-02-04] MEDS: Diphenoxylate/Atrop 1 Tablet PO ×2 (09:56→17:45)
--- NOTE | 2020-02-04 10:00 | EKG12_ITS ---
Test Reason : AM EKG Blood Pressure : / mmHG Vent. Rate : 100 BPM Atrial Rate : 441 BPM P-R Int : 000 ms QRS Dur : 078 ms QT Int : 324 ms P-R-T Axes : 000 042 041 degrees QTc Int : 417 ms Atrial fibrillation with premature ventricular or aberrantly conducted complexes Abnormal ECG When compared with ECG of 03-FEB-2020 13:04, MANUAL COMPARISON REQUIRED, DATA IS UNCONFIRMED Confirmed by NANCI STEARNS, RUBIN ([id number]), brands editor ADRIANE ANTUNEZ ([id number]) on 02/08/2020 11:42:13 AM Referred By: ARLENE Confirmed By:RUBIN CHRISTINE MD
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
--- NOTE | 2020-02-04 12:38 | PN_ITS ---
<Hallie Bailey WAXER OPERATOR - Last Filed: 02/04/20 12:51> Patient Problems: Active and Suspected Problems (Last Reviewed 08/26/17 @ 09:59 by Enedina Ambrosio) New onset a-fib (Acute) Subjective: Patient seen and examined. Reports improvement in breathing. Denies dizziness, lightheadedness. Denies chest pain. Heart rate fluctuating, remains elevated. - Physical Exam Vitals/I&O's: Vital Signs Temp Pulse Resp BP Pulse Ox 98.6 F 105 H 18 95/63 95 02/04/20 12:33 02/04/20 12:33 02/04/20 12:33 02/04/20 12:33 02/04/20 12:33 Oxygen Flow Rate (L/min) 3 Oxygen Delivery Method Nasal Cannula Weight: 274 lb 14.663 oz Body Mass Index (BMI) 45.7 Intake and Output for Last 24 Hours 02/02/20 02/03/20 02/04/20 23:59 23:59 23:59 Intake Total 446.14 / 461.45 628.71 / 628.71 Output Total 1650 / 1650 750 / 750 Balance -1203.86 / -1188.55 -121.29 / -121.29 General: Alert, Oriented x3, Cooperative HEENT: Atraumatic, PERRLA, EOMI, Normocephalic Neck: Supple, No JVD, Negative Carotid Bruits Lungs: Clear to auscultation, Diminished Cardiovascular: Tachycardic, - - Atrial fibrillation Abdomen: Bowel Sounds Present, Soft, Non Tender, Non-Distended, Obese Extremities: No clubbing, No cyanosis, Edema - Lymphedema bilateral lower extremities Skin: No rashes, No breakdown, - - Right medial lower extremity ulceration with surrounding warmth and erythema Musculoskeletal: No Tenderness to Palpation of Joints or Extremities Neurological: Cranial nerves II-XII grossly intact, Neuro grossly intact Psych/Mental Status: Normal Affect, Appropriate Laboratory Results 02/03/20 13:15: WBC 17.1 H, RBC 4.61, Hgb 14.0, Hct 45.0, MCV 97.6, MCH 30.4, MCHC 31.1 L, RDW Std Deviation 51.3 H, RDW Coeff of Curtis 14.3, Plt Count 409, MPV 9.3, Immature Gran % (Auto) 2.800 H, Neut % (Auto) 87.8 H, Lymph % (Auto) 4.8 L, Whiteside % (Auto) 4.3, Eos % (Auto) 0.1, Baso % (Auto) 0.2, Absolute Neuts (auto) 15.0 H, Absolute Lymphs (auto) 0.82 L, Nucleated RBC % 0 02/03/20 13:15: PT Cancelled, INR Cancelled, APTT Cancelled 02/03/20 13:15: Sodium 134 L, Potassium 4.3, Chloride 99, Carbon Dioxide 30.0, Anion Gap 5, BUN 33 H, Creatinine 1.23 H, Estim Creat Clear Calc 40.48, Est GFR (MDRD) Af Amer 56 L, Est GFR (MDRD) Non-Af 46 L, BUN/Creatinine Ratio 26.8 H, Glucose 114 H, Calcium 8.3 L, Magnesium 2.2, Total Bilirubin 1.70 H, AST 22, ALT 24, Alkaline Phosphatase 92, Troponin I < 0.015, Total Protein 6.7, Albumin 2.9 L, Globulin 3.8, Albumin/Globulin Ratio 0.8 L, TSH 2.62 02/03/20 13:15: B-Natriuretic Peptide 250.2 H 02/03/20 13:15: TSH 2.52, Free T4 1.24 02/03/20 14:05: PT 13.8, INR 1.1, APTT 202.9 H* 02/03/20 14:40: Urine Color Yellow, Urine Clarity Sl. Cloudy, Urine pH 5.0, Ur Specific [place] 1.020, Urine Protein Negative, Urine Glucose (UA) Normal, Urine Ketones 5 H, Urine Occult Blood Negative, Urine Nitrite Negative, Urine Bilirubin Negative, Urine Urobilinogen Normal, Ur Leukocyte Esterase 25 H, Urine RBC 0 SEEN, Urine WBC 0-5 SEEN, Ur Squamous Epith Cells 0 SEEN, Urine Bacteria 1+, Urine Mucus 0 SEEN 02/03/20 15:50: APTT 22.2 L 02/04/20 06:45: Sodium 138, Potassium 4.2, Chloride 99, Carbon Dioxide 32.0, Anion Gap 7, BUN 34 H, Creatinine 1.05 H, Estim Creat Clear Calc 47.42, Est GFR (MDRD) Af Amer 67, Est GFR (MDRD) Non-Af 56 L, BUN/Creatinine Ratio 32.4 H, Glucose 86, Calcium 7.7 L Current Medications Acetaminophen (Tylenol) 650 mg PO Q6H PRN PRN PRN Reason: Pain Score 1-10/Temp > 100.7 F Amiodarone HCl (Cordarone) 400 mg PO BID [facility] Diltiazem HCl (Cardizem) 30 mg PO Q6 [facility] Last Admin: 02/04/20 11:07 Dose: 30 mg Documented by: Diphenoxylate HCl/Atropine (Lomotil) 1 tablet PO BID PRN PRN PRN Reason: Diarrhea Last Admin: 02/04/20 09:56 Dose: 1 tablet Documented by: Erythromycin () 1 applic OPHTHALMIC QHS [facility] Last Admin: 02/03/20 21:16 Dose: 1 applicatio Documented by: Furosemide (Lasix) 40 mg PO BID@1000,1800 [facility] Last Admin: 02/04/20 08:47 Dose: Not Given Documented by: Heparin Sodium (Beef Lung) () 50 units IV UD PRN PRN Reason: Port-a-Cath (VAD)Heparin Flush Losartan Potassium (Cozaar) 100 mg PO DAILY [facility] Last Admin: 02/04/20 08:46 Dose: Not Given Documented by: Morphine Sulfate (Ms Contin) 15 mg PO TID [facility] Last Admin: 02/04/20 08:46 Dose: Not Given Documented by: Potassium Chloride (K-Dur) 20 meq PO BIDCM [facility] Last Admin: 02/04/20 08:51 Dose: 20 meq Documented by: Prednisone () 40 mg PO DAILY@0800 [facility] Last Admin: 02/04/20 08:51 Dose: 40 mg Documented by: Rivaroxaban (Xarelto) 20 mg PO DAILY@1700 [facility] Last Admin: 02/03/20 18:37 Dose: 20 mg Documented by: Sildenafil Citrate (Revatio) 20 mg PO TID [facility] Last Admin: 02/04/20 08:46 Dose: Not Given Documented by: Sodium Chloride () 10 - 40 ml IV UD PRN PRN Reason: Port-a-Cath (VAD) Flush Last Admin: 02/03/20 16:22 Dose: 10 ml Documented by: Sodium Chloride (0.9% Nacl (Sterile) Posiflush) 10 - 40 ml IV UD PRN PRN Reason: Port access or dressing change Medical Necessity - Tobacco Use Smoking Status: Former smoker Tobacco Use: Cigarettes Assessment/Plan All Active Problems (Last Reviewed 08/26/17 @ 09:59 by Enedina Ambrosio) New onset a-fib (Acute) Pulmonary embolism (Resolved) 1. New onset atrial fibrillation with RVR-unable to tolerate IV Cardizem and IV amiodarone due to hypotension. Cardiology consulted. Plan for IV digoxin loading and oral amiodarone and oral Cardizem. Continue Xarelto. Echocardiogram demonstrates an EF of 65%. 2. Bilateral lower extremity lymphedema with nonhealing infected right lower extremity ulceration with surrounding cellulitis-following at wound center. Wound RN consult. Dressing changes with Adaptic. Hiram wraps bilateral lower extremities. Elevate lower extremities. Continue oral Lasix. Right lower extremity appears to have increased redness and warmth today. Will obtain wound culture. Given penicillin anaphylactic allergy, will begin IV Levaquin. 3. History of PE-previously on Xarelto. 4. Chronic COPD: No acute exacerbation. As needed albuterol aerosol. 5. Crohn's Disease: On chronic oral prednisone therapy. 6. 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 Now follows with [facility]/oncology for Gammagard injection. 7. Chronic Back Pain, DJD, history of compression Fractures: PT/OT. PRN pain regimen. 8. Hypertension: Stable. Home losartan regimen discontinued due to hypotension. 9. SARAHY: CPAP q HS. 10. Chronic Cholelithiasis: Continue outpatient follow-up. 11. Chronic pulmonary nodules: Continue outpatient follow-up. DVT prophylaxis-Xarelto This patient was seen by DAYAN Montano under the supervision of Dr. Simmons. <Qiana Simmons - Last Filed: 02/04/20 15:25> - Physical Exam Vitals/I&O's: Vital Signs Temp Pulse Resp BP Pulse Ox 98.6 F 105 H 18 95/63 95 02/04/20 12:33 02/04/20 12:41 02/04/20 12:33 02/04/20 12:41 02/04/20 12:33 Oxygen Flow Rate (L/min) 3 Oxygen Delivery Method Nasal Cannula Weight: 274 lb 14.663 oz Body Mass Index (BMI) 45.7 Intake and Output for Last 24 Hours 02/02/20 02/03/20 02/04/20 23:59 23:59 23:59 Intake Total 446.14 / 461.45 628.71 / 628.71 Output Total 1650 / 1650 750 / 750 Balance -1203.86 / -1188.55 -121.29 / -121.29 Laboratory Results 02/03/20 13:15: WBC 17.1 H, RBC 4.61, Hgb 14.0, Hct 45.0, MCV 97.6, MCH 30.4, MCHC 31.1 L, RDW Std Deviation 51.3 H, RDW Coeff of Curtis 14.3, Plt Count 409, MPV 9.3, Immature Gran % (Auto) 2.800 H, Neut % (Auto) 87.8 H, Lymph % (Auto) 4.8 L, Whiteside % (Auto) 4.3, Eos % (Auto) 0.1, Baso % (Auto) 0.2, Absolute Neuts (auto) 15.0 H, Absolute Lymphs (auto) 0.82 L, Nucleated RBC % 0 02/03/20 13:15: PT Cancelled, INR Cancelled, APTT Cancelled 02/03/20 13:15: Sodium 134 L, Potassium 4.3, Chloride 99, Carbon Dioxide 30.0, Anion Gap 5, BUN 33 H, Creatinine 1.23 H, Estim Creat Clear Calc 40.48, Est GFR (MDRD) Af Amer 56 L, Est GFR (MDRD) Non-Af 46 L, BUN/Creatinine Ratio 26.8 H, Glucose 114 H, Calcium 8.3 L, Magnesium 2.2, Total Bilirubin 1.70 H, AST 22, ALT 24, Alkaline Phosphatase 92, Troponin I < 0.015, Total Protein 6.7, Albumin 2.9 L, Globulin 3.8, Albumin/Globulin Ratio 0.8 L, TSH 2.62 02/03/20 13:15: B-Natriuretic Peptide 250.2 H 02/03/20 13:15: TSH 2.52, Free T4 1.24 02/03/20 14:05: PT 13.8, INR 1.1, APTT 202.9 H* 02/03/20 14:40: Urine Color Yellow, Urine Clarity Sl. Cloudy, Urine pH 5.0, Ur Specific [place] 1.020, Urine Protein Negative, Urine Glucose (UA) Normal, Urine Ketones 5 H, Urine Occult Blood Negative, Urine Nitrite Negative, Urine Bilirubin Negative, Urine Urobilinogen Normal, Ur Leukocyte Esterase 25 H, Urine RBC 0 SEEN, Urine WBC 0-5 SEEN, Ur Squamous Epith Cells 0 SEEN, Urine Bacteria 1+, Urine Mucus 0 SEEN 02/03/20 15:50: APTT 22.2 L 02/04/20 06:45: Sodium 138, Potassium 4.2, Chloride 99, Carbon Dioxide 32.0, Anion Gap 7, BUN 34 H, Creatinine 1.05 H, Estim Creat Clear Calc 47.42, Est GFR (MDRD) Af Amer 67, Est GFR (MDRD) Non-Af 56 L, BUN/Creatinine Ratio 32.4 H, Glucose 86, Calcium 7.7 L Current Medications Acetaminophen (Tylenol) 650 mg PO Q6H PRN PRN PRN Reason: Pain Score 1-10/Temp > 100.7 F Amiodarone HCl (Cordarone) 400 mg PO BID [facility] Last Admin: 02/04/20 12:40 Dose: 400 mg Documented by: Diltiazem HCl (Cardizem) 30 mg PO Q6 [facility] Last Admin: 02/04/20 11:07 Dose: 30 mg Documented by: Diphenoxylate HCl/Atropine (Lomotil) 1 tablet PO BID PRN PRN PRN Reason: Diarrhea Last Admin: 02/04/20 09:56 Dose: 1 tablet Documented by: Erythromycin () 1 applic OPHTHALMIC QHS [facility] Last Admin: 02/03/20 21:16 Dose: 1 applicatio Documented by: Furosemide (Lasix) 40 mg PO BID@1000,1800 [facility] Last Admin: 02/04/20 08:47 Dose: Not Given Documented by: Heparin Sodium (Beef Lung) () 50 units IV UD PRN PRN Reason: Port-a-Cath (VAD)Heparin Flush Levofloxacin (Levaquin Iv) 750 mg in 150 mls @ 100 mls/hr IV X1 ONE Stop: 02/04/20 14:59 Levofloxacin (Levaquin Iv) 750 mg in 150 mls @ 100 mls/hr IV Q48 [facility] Losartan Potassium (Cozaar) 100 mg PO DAILY [facility] Last Admin: 02/04/20 08:46 Dose: Not Given Documented by: Morphine Sulfate (Ms Contin) 15 mg PO TID [facility] Last Admin: 02/04/20 08:46 Dose: Not Given Documented by: Potassium Chloride (K-Dur) 20 meq PO BIDCM [facility] Last Admin: 02/04/20 08:51 Dose: 20 meq Documented by: Prednisone () 40 mg PO DAILY@0800 [facility] Last Admin: 02/04/20 08:51 Dose: 40 mg Documented by: Rivaroxaban (Xarelto) 20 mg PO DAILY@1700 [facility] Last Admin: 02/03/20 18:37 Dose: 20 mg Documented by: Sildenafil Citrate (Revatio) 20 mg PO TID [facility] Last Admin: 02/04/20 08:46 Dose: Not Given Documented by: Sodium Chloride () 10 - 40 ml IV UD PRN PRN Reason: Port-a-Cath (VAD) Flush Last Admin: 02/04/20 12:50 Dose: 10 ml Documented by: Sodium Chloride (0.9% Nacl (Sterile) Posiflush) 10 - 40 ml IV UD PRN PRN Reason: Port access or dressing change Assessment/Plan Patient seen by Hallie Bailey NP-C under my supervision. Patient was admitted with a complaint of shortness of breath and was found to be in A. fib with RVR. She was started on Cardizem drip, but this was stopped due to hypotension. She was started on amiodarone drip but this was also stopped due to hypotension. She was put on IV digoxin and oral amiodarone and oral Cardizem per cardiology. Patient has no complaints this morning. She feels much better. Shortness of breath has improved. She denies any cough, chest pain, palpitation, dizziness, diarrhea vomiting. She does complain of some redness on her right lower extremity and says she had a skin abrasion there.she denies any fever or chills. Review of systems otherwise negative, O/E: Vital Signs Temp Pulse Resp BP Pulse Ox 98.6 F 105 H 18 95/63 95 02/04/20 12:33 02/04/20 12:41 02/04/20 12:33 02/04/20 12:41 02/04/20 12:33 General: Alert, Oriented x3, Cooperative HEENT: Atraumatic, PERRLA, EOMI, Normocephalic Neck: Supple, No JVD, Negative Carotid Bruits Lungs: Clear to auscultation, Diminished Cardiovascular: Tachycardic, normal S1 and S2, afib, not rate controlled. Abdomen: Bowel Sounds Present, Soft, Non Tender, Non-Distended, Obese Extremities: No clubbing, No cyanosis, Edema - Lymphedema bilateral lower extremities Skin: No rashes, , - - Right medial lower extremity superficial ulceration on the raymond with surrounding warmth and erythema Musculoskeletal: No Tenderness to Palpation of Joints or Extremities Neurological: Cranial nerves II-XII grossly intact, Neuro grossly intact Psych/Mental Status: Normal Affect, Appropriate Plan is to continue with digoxin and cardizem. Cardiology on board. 2D echo done showed hyperdynamic LV systolic function, with EF of 65%, and mildly enlarged left atrium. Patient currently on xarelto, which she had been on for a history of PE. BP is running low, so will hold sildenafil (takes it for pulmonary hypertension), losartan, and other BP meds. Continue digoxin, oral amiodarone and cardizem. RLE is also erythematous and mildly tender to touch. Will start on IV Levaquin for cellulitis on account of penicillin allergy. Wound cultures obtained. Patient already anticoagulated on Xarelto so we will not do a duplex of the right lower extremity. Rest as per Hallie Bailey's note, which I have reviewed and endorsed. Inpatient E&M: [id number] [facility] L3
[2020-02-04] MEDS: Amiodarone 200 MG Tablet 400 MG PO (12:40)
[2020-02-04] MEDS: Digoxin 250 MCG/ML Ampul IV (12:41)
[2020-02-04] MEDS: 0.9% Saline Lock 10 ML Syringe IV ×2 (12:50→14:19)
[2020-02-04] MEDS: levoFLOXacin IV 750 MG/150 ML BAG 100 MG IV (14:19)
[2020-02-04] MEDS: Rivaroxaban 20 MG Tablet PO (17:43)
--- NOTE | 2020-02-04 19:15 | CM.ED ---
SOCIAL WORK Reason for Consult: Advanced Directives Met with patient in room. Introduced role and reason for referral. Patient states believes she's completed Advanced Directives in the past, but is not sure. Patient with questions about HPOA and Living Will. All questions answered and education provided. Patient wishes to read over documents and not complete them at this time. Blank copy of HPOA and Living Will given per request. Ivone Ling, CUTTING DEPARTMENT SUPERVISOR, FABRIC WORKER FOREMAN
--- NOTE | 2020-02-04 20:06 | NURSING ---
Spoke with Dr. Hood about patient's vital signs and ordered medications. Dr. Hood states that we should give patient's scheduled MS contin and revatio and hold the PO amiodarone and Cardizem. Will recheck vital signs prior to medication administration and notify Dr. Hood of any changes.
[2020-02-04] MEDS: morphine SR 15 MG Tablet PO (21:39)
[2020-02-04] MEDS: SILDENAFIL CITRATE 20 MG TABLET PO (21:39)
[2020-02-04] MEDS: Erythromycin Base 1 OPTH.TUBE 1 APPLIC OPHTHALMIC (21:39)
[2020-02-05] VITALS (18 sets, daily range): BP systolic 85–122; BP diastolic 61–83; PULSE 82–147; RESP 16–22; TEMP 36.9–37.3; O2SAT 94–100
[2020-02-05] MEDS: morphine SR 15 MG Tablet PO ×3 (06:20→21:14)
[2020-02-05] MEDS: dilTIAZem 30 MG Tablet PO ×2 (06:21→18:52)
[2020-02-05] MEDS: SILDENAFIL CITRATE 20 MG TABLET PO (06:21)
[2020-02-05] MEDS: Diphenoxylate/Atrop 1 Tablet PO (06:22)
[2020-02-05 06:31] LABS: Hematocrit 37.8 % (37-47); Hemoglobin 11.5 g/dL (12.0-15.0); Mean Corp Hgb Conc 30.4 g/dL (32-36); Mean Corpuscular Hgb 30.1 pg (27.0-32.0); Mean Platelet Vol. 9.5 fl (6.2-12.0); Platelet Count 346 K/mm3 (150-450); RBC Distribution Width SD 50.8 fl (35.1-43.9); Red Blood Count 3.82 M/mm3 (4.2-5.4); White Blood Count 11.9 K/mm3 (4.4-11.0)
[2020-02-05 06:52] LABS: Anion Gap 3 (5-15); BUN 29 mg/dL (7-18); BUN/Creat Ratio 33.8 RATIO (10-20); Calcium,Total 7.4 mg/dL (8.5-10.1); Chloride 100 mmol/L (98-107); Creatinine, Serum 0.86 mg/dL (0.55-1.02); EST Glomerular Filtration Rate 70 mL/min (>60); Est Glom Filt Rate - Afr Amer 85 mL/min (>60); Glucose 101 mg/dL (74-106); Potassium 4.5 mmol/L (3.5-5.1); Sodium Level 136 mmol/L (136-145)
[2020-02-05] MEDS: predniSONE 20 MG Tablet 40 MG PO (09:00)
[2020-02-05] MEDS: Amiodarone 200 MG Tablet 400 MG PO (09:00)
--- NOTE | 2020-02-05 09:41 | CT_ITS ---
STUDY: CTA CHEST REASON FOR EXAM: Female, 64 years old. Increased SOB and amp; swelling x 2 weeks, new onset afib, hypertension, COPD, asthma, former smoker, partial lobectomy (benign). Patient receives IVIG infusions via PowerPort. RADIATION DOSAGE (If Supplied By Facility): CTDIvol = ( 11.43 ) mGy, DLP = ( 483.52 ) mGycm TECHNIQUE: The examination was performed with the intravenous administration of IV 100mL Isovue-370. Post-processing of the angiographic images was performed, with multiplanar reformation and 3D reconstruction. Individualized dose optimization techniques were used for this CT. COMPARISON: 09/27/2019 FINDINGS: Right internal jugular chest port. Normal enhancement of the main pulmonary artery and right and left pulmonary arteries. Normal enhancement of the bilateral peripheral pulmonary arteries. Filling defects within segmental branches of the descending right pulmonary artery and descending right pulmonary artery consistent with pulmonary embolism. Normal thoracic aorta and visualized great vessels. There is no demonstrated aortic dissection. Normal heart and pericardium. Normal mediastinum. Normal hilar regions. Normal visualized trachea and bronchi. The lungs are well expanded. Normal pulmonary parenchyma. Normal pleura. Normal chest wall structures. Normal osseous structures. Normal visualized upper abdomen. CT/CTA Chest W/WO Contrast IMPRESSION: Positive for segmental pulmonary emboli within the right lung. Electronically Signed: Dino Augustin MD at 11:50 EDT Tel , Service support ,
--- NOTE | 2020-02-05 10:11 | PCM.PROGNOTE ---
<Hallie Bailey PLASTIC SURGEON - Last Filed: 02/05/20 10:19> Patient Problems: Active and Suspected Problems (Last Reviewed 08/26/17 @ 09:59 by Enedina Ambrosio) New onset a-fib (Acute) Subjective: Patient seen and examined. Reports significant shortness of breath with minimal exertion. States lower extremity swelling increased. Blood pressure low overnight and this morning. Denies lightheadedness. Denies chest pain. - Physical Exam Vitals/I&O's: Vital Signs Temp Pulse Resp BP Pulse Ox 98.8 F 92 19 H 95/63 94 02/05/20 09:00 02/05/20 09:00 02/05/20 09:00 02/05/20 09:00 02/05/20 09:00 Oxygen Flow Rate (L/min) 3 Oxygen Delivery Method Nasal Cannula Weight: 274 lb 14.663 oz Body Mass Index (BMI) 45.7 Intake and Output for Last 24 Hours 02/03/20 02/04/20 02/05/20 23:59 23:59 23:59 Intake Total 446.14 / 461.45 1658.71 / 1858.71 300 / 300 Output Total 1650 / 1650 950 / 950 200 / 200 Balance -1203.86 / -1188.55 708.71 / 908.71 100 / 100 General: Alert, Oriented x3, Cooperative HEENT: Atraumatic, PERRLA, EOMI, Normocephalic Neck: Supple, No JVD, Negative Carotid Bruits Lungs: Clear to auscultation, Diminished Cardiovascular: Tachycardic, - - Atrial fibrillation Abdomen: Bowel Sounds Present, Soft, Non Tender, Non-Distended, Obese Extremities: No clubbing, No cyanosis, Edema - Bilateral lower extremity lymphedema Skin: No rashes, No breakdown, - - Right medial lower extremity ulceration with surrounding warmth and erythema Musculoskeletal: No Tenderness to Palpation of Joints or Extremities Neurological: Cranial nerves II-XII grossly intact, Neuro grossly intact Psych/Mental Status: Normal Affect, Appropriate Laboratory Results 02/05/20 05:10: WBC 11.9 H, RBC 3.82 L, Hgb 11.5 L, Hct 37.8, MCV 99.0, MCH 30.1, MCHC 30.4 L, RDW Std Deviation 50.8 H, RDW Coeff of Curtis 14.0, Plt Count 346, MPV 9.5 02/05/20 05:10: Sodium 136, Potassium 4.5, Chloride 100, Carbon Dioxide 33.0 H, Anion Gap 3 L, BUN 29 H, Creatinine 0.86, Estim Creat Clear Calc 57.90, Est GFR (MDRD) Af Amer 85, Est GFR (MDRD) Non-Af 70, BUN/Creatinine Ratio 33.8 H, Glucose 101, Calcium 7.4 L Current Medications Acetaminophen (Tylenol) 650 mg PO Q6H PRN PRN PRN Reason: Pain Score 1-10/Temp > 100.7 F Amiodarone HCl (Cordarone) 200 mg PO BID [facility] Digoxin (Lanoxin) 125 mcg PO DAILY [facility] Diltiazem HCl (Cardizem) 30 mg PO Q6 [facility] Last Admin: 02/05/20 06:21 Dose: 30 mg Documented by: Diphenoxylate HCl/Atropine (Lomotil) 1 tablet PO BID PRN PRN PRN Reason: Diarrhea Last Admin: 02/05/20 06:22 Dose: 1 tablet Documented by: Erythromycin () 1 applic OPHTHALMIC QHS [facility] Last Admin: 02/04/20 21:39 Dose: 1 applicatio Documented by: Furosemide (Lasix) 40 mg PO BID@1000,1800 [facility] Last Admin: 02/04/20 17:41 Dose: Not Given Documented by: Heparin Sodium (Beef Lung) () 50 units IV UD PRN PRN Reason: Port-a-Cath (VAD)Heparin Flush Levofloxacin (Levaquin Iv) 750 mg in 150 mls @ 100 mls/hr IV Q48 [facility] Morphine Sulfate (Ms Contin) 15 mg PO TID [facility] Last Admin: 02/05/20 06:20 Dose: 15 mg Documented by: Potassium Chloride (K-Dur) 20 meq PO BIDCM [facility] Last Admin: 02/05/20 09:00 Dose: 20 meq Documented by: Prednisone () 40 mg PO DAILY@0800 [facility] Last Admin: 02/05/20 09:00 Dose: 40 mg Documented by: Rivaroxaban (Xarelto) 20 mg PO DAILY@1700 [facility] Last Admin: 02/04/20 17:43 Dose: 20 mg Documented by: Sodium Chloride () 10 - 40 ml IV UD PRN PRN Reason: Port-a-Cath (VAD) Flush Last Admin: 02/04/20 14:19 Dose: 20 ml Documented by: Sodium Chloride (0.9% Nacl (Sterile) Posiflush) 10 - 40 ml IV UD PRN PRN Reason: Port access or dressing change Medical Necessity - Tobacco Use Smoking Status: Former smoker Tobacco Use: Cigarettes Assessment/Plan All Active Problems (Last Reviewed 08/26/17 @ 09:59 by Enedina Ambrosio) New onset a-fib (Acute) Pulmonary embolism (Resolved) 1. New onset atrial fibrillation with RVR-unable to tolerate IV Cardizem and IV amiodarone due to hypotension. Cardiology consulted. Echocardiogram demonstrates an EF of 65%. Continue Xarelto. Heart rate increased to this morning. Blood pressure remains low, systolically 80-90. Home losartan and sildenafil regimen on hold. Continue oral Cardizem 30 mg every 6 hours, digoxin 125 mcg p.o. daily and amiodarone 200 mg twice daily. Monitor BP. Given significant shortness of breath and difficult to control heart rate with history of PE, will obtain CTA. 2. Bilateral lower extremity lymphedema with nonhealing infected right lower extremity ulceration with surrounding cellulitis-following at wound center. Wound RN consult. Dressing changes with Adaptic. Hiram wraps bilateral lower extremities. Elevate lower extremities. Continue oral Lasix. Wound culture pending. Given penicillin anaphylactic allergy, continue IV Levaquin. 3. Hypotension-Home antihypertensive regimen on hold. Asymptomatic. Continue to monitor. 4. History of PE-previously on Xarelto. CTA pending as noted above. If CTA remarkable for PE, patient will need transitioned to acute therapeutic Xarelto dosing. 5. Chronic COPD: No acute exacerbation. As needed albuterol aerosol. 6. Crohn's Disease: On chronic oral prednisone therapy. 7. 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 Now follows with [facility] heme/oncology for Gammagard injection. 8. Chronic Back Pain, DJD, history of compression Fractures: PT/OT. PRN pain regimen. 9. Hypertension: Home losartan regimen discontinued due to hypotension. 10. SARAHY: CPAP q HS. 11. Chronic Cholelithiasis: Continue outpatient follow-up. 12. Chronic pulmonary nodules: Continue outpatient follow-up. DVT prophylaxis-Xarelto This patient was seen by DAYAN Montano under the supervision of Dr. Simmons. <Qiana Simmons Ashley - Last Filed: 02/05/20 11:12> - Physical Exam Vitals/I&O's: Vital Signs Temp Pulse Resp BP Pulse Ox 98.8 F 92 19 H 95/63 94 02/05/20 09:00 02/05/20 09:00 02/05/20 09:00 02/05/20 09:00 02/05/20 09:00 Oxygen Flow Rate (L/min) 3 Oxygen Delivery Method Nasal Cannula Weight: 274 lb 14.663 oz Body Mass Index (BMI) 45.7 Intake and Output for Last 24 Hours 02/03/20 02/04/20 02/05/20 23:59 23:59 23:59 Intake Total 446.14 / 461.45 1658.71 / 1858.71 300 / 300 Output Total 1650 / 1650 950 / 950 200 / 200 Balance -1203.86 / -1188.55 708.71 / 908.71 100 / 100 Laboratory Results 02/05/20 05:10: WBC 11.9 H, RBC 3.82 L, Hgb 11.5 L, Hct 37.8, MCV 99.0, MCH 30.1, MCHC 30.4 L, RDW Std Deviation 50.8 H, RDW Coeff of Curtis 14.0, Plt Count 346, MPV 9.5 02/05/20 05:10: Sodium 136, Potassium 4.5, Chloride 100, Carbon Dioxide 33.0 H, Anion Gap 3 L, BUN 29 H, Creatinine 0.86, Estim Creat Clear Calc 57.90, Est GFR (MDRD) Af Amer 85, Est GFR (MDRD) Non-Af 70, BUN/Creatinine Ratio 33.8 H, Glucose 101, Calcium 7.4 L Current Medications Acetaminophen (Tylenol) 650 mg PO Q6H PRN PRN PRN Reason: Pain Score 1-10/Temp > 100.7 F Amiodarone HCl (Cordarone) 200 mg PO BID [facility] Digoxin (Lanoxin) 125 mcg PO DAILY [facility] Diltiazem HCl (Cardizem) 30 mg PO Q6 [facility] Last Admin: 02/05/20 06:21 Dose: 30 mg Documented by: Diphenoxylate HCl/Atropine (Lomotil) 1 tablet PO BID PRN PRN PRN Reason: Diarrhea Last Admin: 02/05/20 06:22 Dose: 1 tablet Documented by: Erythromycin () 1 applic OPHTHALMIC QHS [facility] Last Admin: 02/04/20 21:39 Dose: 1 applicatio Documented by: Furosemide (Lasix) 40 mg PO BID@1000,1800 [facility] Last Admin: 02/04/20 17:41 Dose: Not Given Documented by: Heparin Sodium (Beef Lung) () 50 units IV UD PRN PRN Reason: Port-a-Cath (VAD)Heparin Flush Levofloxacin (Levaquin Iv) 750 mg in 150 mls @ 100 mls/hr IV Q48 [facility] Morphine Sulfate (Ms Contin) 15 mg PO TID [facility] Last Admin: 02/05/20 06:20 Dose: 15 mg Documented by: Potassium Chloride (K-Dur) 20 meq PO BIDCM [facility] Last Admin: 02/05/20 09:00 Dose: 20 meq Documented by: Prednisone () 40 mg PO DAILY@0800 [facility] Last Admin: 02/05/20 09:00 Dose: 40 mg Documented by: Rivaroxaban (Xarelto) 20 mg PO DAILY@1700 [facility] Last Admin: 02/04/20 17:43 Dose: 20 mg Documented by: Sodium Chloride () 10 - 40 ml IV UD PRN PRN Reason: Port-a-Cath (VAD) Flush Last Admin: 02/04/20 14:19 Dose: 20 ml Documented by: Sodium Chloride (0.9% Nacl (Sterile) Posiflush) 10 - 40 ml IV UD PRN PRN Reason: Port access or dressing change Assessment/Plan Patient seen by Hallie Bailey NP-Kamar under my supervision. Patient seen and examined. She is on PO cardizem and amiodarone. She requests for her lomotil dose to be increased. BP has been running low in the 90s systolic. She has no other complaints. Review of systems otherwise negative. O/E: Vital Signs Temp Pulse Resp BP Pulse Ox 98.8 F 92 19 H 95/63 94 02/05/20 09:00 02/05/20 09:00 02/05/20 09:00 02/05/20 09:00 02/05/20 09:00 General: Alert, Oriented x3, Cooperative HEENT: Atraumatic, PERRLA, EOMI, Normocephalic Neck: Supple, No JVD, Negative Carotid Bruits Lungs: Clear to auscultation, Diminished Cardiovascular: Tachycardic, normal S1 and S2, afib, rate controlled. Abdomen: Bowel Sounds Present, Soft, Non Tender, Non-Distended, Obese Extremities: No clubbing, No cyanosis, Edema - Lymphedema bilateral lower extremities Skin: No rashes, , - - Right medial lower extremity superficial ulceration on the raymond with surrounding warmth and erythema Musculoskeletal: No Tenderness to Palpation of Joints or Extremities Neurological: Cranial nerves II-XII grossly intact, Neuro grossly intact Psych/Mental Status: Normal Affect, Appropriate Plani s to continue digoxin 125mcg as started by cardiology. continue PO cardizem 30mg q6; losartan discontinued o./a of hypotension. Continue IV levaquin for cellulitis. Cardiology on board. continue xarelto. Rest as per Hallie Bailey's note, which I have reviewed and endorsed. Inpatient E&M: 25725 Subs Hosp L2
[2020-02-05] MEDS: Digoxin 125 MCG Tablet PO (11:25)
--- NOTE | 2020-02-05 11:27 | PCM.PN.CARD ---
Subjectve: Patient is still short of breath on minimal exertion. Atrial fibrillation with ventricular rate between 101 110/min. Blood pressure still on the low side with systolic between [address] of the chest was performed this morning result is pending. At rest oxygen saturation 100% on 2 L Objective: Vital Signs Temp Pulse Resp BP Pulse Ox 98.6 F 113 H 19 H 85/65 L 100 02/05/20 11:15 02/05/20 11:25 02/05/20 11:15 02/05/20 11:15 02/05/20 11:15 Oxygen Flow Rate (L/min) 3 Oxygen Delivery Method Nasal Cannula Weight: 274 lb 14.663 oz Body Mass Index (BMI) 45.7 Intake and Output for Last 24 Hours 02/03/20 02/04/20 02/05/20 23:59 23:59 23:59 Intake Total 446.14 / 461.45 1658.71 / 1858.71 300 / 300 Output Total 1650 / 1650 950 / 950 200 / 200 Balance -1203.86 / -1188.55 708.71 / 908.71 100 / 100 General: Healthy Appearing Neck: Supple Lungs: Clear to auscultation Cardiovascular: Irregular Rhythm, No Murmurs Abdomen: Bowel Sounds Present, Soft, Non Tender, No HSM, No Organomegaly Psych/Mental Status: Appropriate, Normal Affect 02/05/20 05:10: WBC 11.9 H, RBC 3.82 L, Hgb 11.5 L, Hct 37.8, MCV 99.0, MCH 30.1, MCHC 30.4 L, Plt Count 346, MPV 9.5 02/05/20 05:10: Sodium 136, Potassium 4.5, Chloride 100, Carbon Dioxide 33.0 H, Anion Gap 3 L, BUN 29 H, Creatinine 0.86, Est GFR (MDRD) Af Amer 85, Est GFR (MDRD) Non-Af 70, BUN/Creatinine Ratio 33.8 H, Glucose 101, Calcium 7.4 L Rhythm: EKG: ECHO: Stress Test: Cardiac Cath: PCI: CT Surgery: Holter monitor: EPS: PPM: CXR: Chest CT Scan: Medical Necessity - Tobacco Use Smoking Status: Former smoker Tobacco Use: Cigarettes Assessment/Plan Atrial fibrillation with rate still in the 100 is 220/min irregular. Blood pressure still in the 80s systolic. Patient denies any chest pain. CTA of the chest result was pending. On room air oxygen saturations 100%. She is still short of breath on minimal exertion. Cardizem has been withheld. Amiodarone has been withheld. Digoxin 0.125 mg daily will be started. Patient may need JASON/cardioversion if CT scan showed negative for pulmonary embolism. Recent echocardiogram showed normal systolic wall motion. Right ventricular function is also normal
--- NOTE | 2020-02-05 12:53 | NURSING ---
Attempted to contact Dr. Shepherd regarding patient. Unable to reach physician. Message left on voicemail to return call for update.
[2020-02-05] MEDS: Rivaroxaban 15 MG Tablet PO ×2 (13:41→21:21)
[2020-02-05] MEDS: 0.9% Saline Lock 10 ML Syringe IV ×2 (13:42→16:14)
[2020-02-05] MEDS: Digoxin 250 MCG/ML Ampul 500 MCG IV (14:36)
[2020-02-05] MEDS: 0.9% Normal Saline 1,000 ML 50 ML IV (16:18)
[2020-02-05 19:13] LABS: Probe Check PASS; Specimen Processing Control PASS
[2020-02-05] MEDS: Erythromycin Base 1 OPTH.TUBE 1 APPLIC OPHTHALMIC (21:14)
[2020-02-05] MEDS: Amiodarone 200 MG Tablet PO (21:14)
[2020-02-05] MEDS: Diphenoxylate/Atrop 1 Tablet 2 TABLET PO (21:27)
[2020-02-06] VITALS (13 sets, daily range): BP systolic 104–113; BP diastolic 62–90; PULSE 53–102; RESP 18–22; TEMP 36.8–37; O2SAT 94–100
[2020-02-06] MEDS: dilTIAZem 30 MG Tablet PO ×4 (00:26→16:55)
[2020-02-06] MEDS: morphine SR 15 MG Tablet PO ×3 (05:50→21:12)
[2020-02-06 06:52] LABS: Hematocrit 41.7 % (37-47); Hemoglobin 12.8 g/dL (12.0-15.0); Mean Corp Hgb Conc 30.7 g/dL (32-36); Mean Corpuscular Hgb 30.6 pg (27.0-32.0); Mean Corpuscular Volume 99.8 fL (81-99); Mean Platelet Vol. 9.5 fl (6.2-12.0); Platelet Count 306 K/mm3 (150-450); RBC Distribution Width CV 13.6 % (11.6-14.6); RBC Distribution Width SD 50.2 fl (35.1-43.9); Red Blood Count 4.18 M/mm3 (4.2-5.4); White Blood Count 13.5 K/mm3 (4.4-11.0)
[2020-02-06 07:28] LABS: Anion Gap 1 (5-15); BUN 23 mg/dL (7-18); BUN/Creat Ratio 26.9 RATIO (10-20); Calcium,Total 7.6 mg/dL (8.5-10.1); Chloride 107 mmol/L (98-107); Creatinine, Serum 0.86 mg/dL (0.55-1.02); EST Glomerular Filtration Rate 71 mL/min (>60); Est Glom Filt Rate - Afr Amer 85 mL/min (>60); Glucose 96 mg/dL (74-106); Potassium 5.6 mmol/L (3.5-5.1); Sodium Level 137 mmol/L (136-145)
--- NOTE | 2020-02-06 09:16 | PCM.PN.CARD ---
Subjectve: The patient is awake and alert. She denies ongoing chest discomfort at this time. She does not recall any palpitations or rapid rates. She has chronic shortness of breath and dyspnea and becomes hypoxemic when she does not have her O2 supplement on. She also has chronic lower extremity edema. This is superimposed upon a history of underlying pulmonary hypertension. Objective: Vital Signs Temp Pulse Resp BP Pulse Ox 98.6 F 73 20 H 104/65 94 02/06/20 03:20 02/06/20 06:56 02/06/20 03:20 02/06/20 05:46 02/06/20 07:15 Oxygen Flow Rate (L/min) 3 Oxygen Delivery Method Nasal Cannula Weight: 274 lb 14.663 oz Body Mass Index (BMI) 45.7 Intake and Output for Last 24 Hours 02/04/20 02/05/20 02/06/20 23:59 23:59 23:59 Intake Total 1658.71 / 1858.71 1780 / 1780 30 / 30 Output Total 950 / 950 775 / 775 460 / 460 Balance 708.71 / 908.71 1005 / 1005 -430 / -430 General: Awake, Alert, Oriented x 3, Cooperative, No Acute Distress HEENT: Atraumatic, Normocephalic, PERRL, EOMI, Sclera Non Icteric Neck: No JVD Lungs: Diminished Dilan Bases Cardiovascular: Irregular Rhythm, Normal S1, Normal S2 Abdomen: Bowel Sounds Present, Soft Extremities: - - Marked bilateral lower extremity edema Psych/Mental Status: Appropriate 02/06/20 06:35: WBC 13.5 H, RBC 4.18 L, Hgb 12.8, Hct 41.7, MCV 99.8 H, MCH 30.6, MCHC 30.7 L, Plt Count 306, MPV 9.5 02/06/20 06:35: Sodium 137, Potassium 5.6 H, Chloride 107, Carbon Dioxide 29.0, Anion Gap 1 L, BUN 23 H, Creatinine 0.86, Est GFR (MDRD) Af Amer 85, Est GFR (MDRD) Non-Af 71, BUN/Creatinine Ratio 26.9 H, Glucose 96, Calcium 7.6 L Rhythm: Atrial fibrillation with controlled ventricular response Echo: Interpretation Summary Left ventricular systolic function is hyperdynamic. The estimated ejection fraction is 65 %. The left atrium is mildly enlarged. Mild tricuspid valve insufficiency. Procedure: Right heart catheterization: 05-09-2016 Indications: Shortness of breath/dyspnea; edema; pulmonary hypertension; abnormal transthoracic echocardiogram Consent: Per patient Medications: Versed 1 mg IV push total; Benadryl 25 mg IV push total Procedure: The patient was brought to the cardiac catheterization laboratory laid supine on the cardiac catheterization table. The right inguinal area was prepped and draped in standard sterile fashion. 2% Xylocaine was used for local anesthesia. Using the modified Seldinger technique the right femoral vein was cannulated and a #7 [place] venous sheath was placed. A #7 [place] thermodilution balloontipped [place]-Judi catheter was then advanced under fluoroscopic guidance to the level of the IVC were subsequent oxygen saturations were obtained. It was not advanced to the SVC noting the patient has a central venous catheter in the SVC. It was advanced to the right atrium, right ventricle, pulmonary artery, and pulmonary capillary wedge pressures where oxygen saturations were obtained in the right atrium, right ventricle, and pulmonary artery and pressures were obtained in the right atrium, right ventricle, pulmonary artery, and pulmonary capillary wedge pressure position. A femoral arterial oxygen saturation was obtained. A thermal dilution cardiac output procedure was performed. All catheters and sheaths were subsequently removed. Direct pressure was held until adequate hemostasis was achieved. There was no apparent bleeding, hematoma, or complication otherwise prior to leaving the cardiac catheterization laboratory. Findings: Hemodynamics: Right atrial pressure: A-wave 15, V wave 12, mean 12 mmHg Right ventricular pressure: 45/8 mmHg Pulmonary artery pressure: 44/20 mmHg Mean pulmonary artery pressure: 32 mmHg Pulmonary capillary wedge pressure: A-wave 24, V wave 16, mean 19 mmHg Oxygen saturation: Room air: IVC 78% RA 67% RV 68% PA 70% Right femoral artery: 91% Cardiac output: Thermal dilution: 8.6 L/min Cardiac index: Thermal dilution: 3.4 L/min/m? Discussion: The right heart catheterization demonstrates elevation of the pulmonary/right heart pressures compatible with pulmonary hypertension-moderate. The patient will need to continue further evaluation care of her concerns of underlying pulmonary hypertension by her pulmonology team. Final impression: 1. Evaded intrapulmonary right heart pressures compatible with pulmonary hypertension-moderate Comment: The above was discussed and reviewed with the patient. Medical Necessity - Tobacco Use Smoking Status: Former smoker Tobacco Use: Cigarettes Assessment/Plan 1. Atrial fibrillation The patient presents with atrial fibrillation. At the moment her rate appears to be controlled. She has been placed on antiarrhythmic therapy to assist with rate control and hopefully regaining sinus rhythm. She is also on anticoagulant therapy for this as well as her findings compatible with pulmonary emboli. At the moment the patient will continue rate control therapy, antiarrhythmic initiation, and anticoagulant therapy. Over time the patient will be considered for future synchronized biphasic DC cardioversion if she does not regain sinus rhythm. In the interim she will need to continue evaluation care of her underlying pulmonary disease process with respect to her pulmonary hypertension and her pulmonary emboli which may be contributing factors to her atrial dysrhythmia. Depending upon her clinical course she may or may not need further noninvasive or invasive evaluation of her cardiovascular status going forward. 2. Pulmonary emboli She has a history of pulmonary emboli for which she has been treated in the past and presents now with recurrent pulmonary emboli which may be a contributing factor to her atrial fibrillation and her overall findings. She has been placed back on anticoagulant therapy. 3. Pulmonary hypertension She has a longstanding history of pulmonary hypertension for which she follows with Dr. Banks of pulmonology. She has been on a vasodilator for this. 4. COPD She also has a history of COPD. Again she will need to continue evaluation care by her pulmonology team. 5. Hypertension/hypotension She has a history of hypertension for which she has been medically treated. At the present time there is concern of hypotension. It does not appear definitive that this is related to her underlying atrial dysrhythmia especially with a controlled ventricular response. There may be other contributing factors such as her underlying pulmonary disease process with her pulmonary emboli. Also she has recently undergone diuresis for concerns of lower extremity lymphedema. She has been noted to have improvement with her pressures, as well as her renal function, with IV fluids. Thus there may be an element of intravascular depletion, despite the presence of her lymphedema, that has been contributing to her hypotension. She will need to continue monitoring, continue adjustment of her medications to avoid hypotension, and continue IV fluid support to assist with her blood pressure, while watching for other etiologies require further evaluation and care. 6. Lymphedema She has been diagnosed with lymphedema. She states this is worsened since she has been on medical therapy including corticosteroid therapy. She had been undergoing diuresis for this with no significant improvement. She is also been evaluated at the wound center based upon skin breakdown, etc. Overall at the present time from a cardiovascular standpoint she will continue to be monitored, continue adjustment of her medications, and continue additional evaluation as deemed appropriate over time. This note was generated using a voice recognition system and there may be incorrect words, spelling or punctuation that were not noted when reviewing the office note prior to saving.
[2020-02-06] MEDS: levoFLOXacin IV 750 MG/150 ML BAG 100 MG IV (09:31)
[2020-02-06] MEDS: predniSONE 20 MG Tablet 40 MG PO (09:35)
[2020-02-06] MEDS: Digoxin 125 MCG Tablet PO (09:37)
[2020-02-06] MEDS: Amiodarone 200 MG Tablet PO ×2 (09:39→21:12)
[2020-02-06] MEDS: Rivaroxaban 15 MG Tablet PO ×2 (09:40→16:58)
[2020-02-06] MEDS: Diphenoxylate/Atrop 1 Tablet 2 TABLET PO ×2 (09:48→17:04)
[2020-02-06] MEDS: 0.9% Normal Saline 1,000 ML 75 ML IV (11:37)
--- NOTE | 2020-02-06 12:01 | PCM.PROGNOTE ---
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 Reports improvement in shortness of breath however has not been moving much. Heart rate and blood pressure improved. Continues to require supplemental oxygen. - Physical Exam Vitals/I&O's: Vital Signs Temp Pulse Resp BP Pulse Ox 98.2 F 90 19 H 104/79 100 02/06/20 09:15 02/06/20 09:37 02/06/20 09:15 02/06/20 09:37 02/06/20 09:15 Oxygen Flow Rate (L/min) 3 Oxygen Delivery Method Nasal Cannula Weight: 274 lb 14.663 oz Body Mass Index (BMI) 45.7 Intake and Output for Last 24 Hours 02/04/20 02/05/20 02/06/20 23:59 23:59 23:59 Intake Total 1658.71 / 1858.71 1780 / 1780 995.83 / 995.83 Output Total 950 / 950 775 / 775 460 / 460 Balance 708.71 / 908.71 1005 / 1005 535.83 / 535.83 General: Alert, Oriented x3, Cooperative HEENT: Atraumatic, PERRLA, EOMI, Normocephalic Neck: Supple, No JVD, Negative Carotid Bruits Lungs: Clear to auscultation, Diminished Cardiovascular: - - Atrial fibrillation, rate controlled Abdomen: Bowel Sounds Present, Soft, Non Tender, Non-Distended, Obese Extremities: No clubbing, No cyanosis, Edema - Lymphedema bilateral lower extremities Skin: No rashes, No breakdown, - - Right lower extremity erythema and warmth improved. Right medial lower extremity ulceration. Musculoskeletal: No Tenderness to Palpation of Joints or Extremities Neurological: Cranial nerves II-XII grossly intact, Neuro grossly intact Psych/Mental Status: Normal Affect, Appropriate Microbiology Past 72 Hours 02/04/20 14:30 Wound - Leg, Right Gram Stain - Final 02/04/20 14:30 Wound - Leg, Right Wound Culture - Final Coag Negative Staph Laboratory Results 02/05/20 16:00: COVID-19 (NONA) Negative 02/06/20 06:35: WBC 13.5 H, RBC 4.18 L, Hgb 12.8, Hct 41.7, MCV 99.8 H, MCH 30.6, MCHC 30.7 L, RDW Std Deviation 50.2 H, RDW Coeff of Curtis 13.6, Plt Count 306, MPV 9.5 02/06/20 06:35: Sodium 137, Potassium 5.6 H, Chloride 107, Carbon Dioxide 29.0, Anion Gap 1 L, BUN 23 H, Creatinine 0.86, Estim Creat Clear Calc 57.90, Est GFR (MDRD) Af Amer 85, Est GFR (MDRD) Non-Af 71, BUN/Creatinine Ratio 26.9 H, Glucose 96, Calcium 7.6 L Current Medications Acetaminophen (Tylenol) 650 mg PO Q6H PRN PRN PRN Reason: Pain Score 1-10/Temp > 100.7 F Amiodarone HCl (Cordarone) 200 mg PO BID [facility] Last Admin: 02/06/20 09:39 Dose: 200 mg Documented by: Digoxin (Lanoxin) 125 mcg PO DAILY [facility] Last Admin: 02/06/20 09:37 Dose: 125 mcg Documented by: Diltiazem HCl (Cardizem) 30 mg PO Q6 [facility] Last Admin: 02/06/20 05:50 Dose: 30 mg Documented by: Diphenoxylate HCl/Atropine (Lomotil) 2 tablet PO TIDCM [facility] Erythromycin () 1 applic OPHTHALMIC QHS [facility] Last Admin: 02/05/20 21:14 Dose: 1 applicatio Documented by: Heparin Sodium (Beef Lung) () 50 units IV UD PRN PRN Reason: Port-a-Cath (VAD)Heparin Flush Sodium Chloride () 1,000 mls @ 75 mls/hr IV .[id number] [facility] Last Admin: 02/06/20 11:37 Dose: 75 mls/hr Documented by: Levofloxacin (Levaquin Iv) 750 mg in 150 mls @ 100 mls/hr IV DAILY [facility] Last Admin: 02/06/20 09:31 Dose: 100 mls/hr Documented by: Morphine Sulfate (Ms Contin) 15 mg PO TID [facility] Last Admin: 02/06/20 05:50 Dose: 15 mg Documented by: Prednisone () 40 mg PO DAILY@0800 [facility] Last Admin: 02/06/20 09:35 Dose: 40 mg Documented by: Rivaroxaban (Xarelto) 15 mg PO BIDCM [facility] Stop: 02/26/20 17:01 Last Admin: 02/06/20 09:40 Dose: 15 mg Documented by: Sodium Chloride () 10 - 40 ml IV UD PRN PRN Reason: Port-a-Cath (VAD) Flush Last Admin: 02/05/20 16:14 Dose: 10 ml Documented by: Sodium Chloride (0.9% Nacl (Sterile) Posiflush) 10 - 40 ml IV UD PRN PRN Reason: Port access or dressing change Medical Necessity - Tobacco Use Smoking Status: Former smoker Tobacco Use: Cigarettes Assessment/Plan All Active Problems (Last Reviewed 08/26/17 @ 09:59 by Enedina Ambrosio) New onset a-fib (Acute) Pulmonary embolism (Resolved) 1. New onset atrial fibrillation with RVR-unable to tolerate IV Cardizem and IV amiodarone due to hypotension. Cardiology consulted. Echocardiogram demonstrates an EF of 65%. Continue Xarelto. Home losartan and sildenafil regimen on hold. Continue oral Cardizem 30 mg every 6 hours, digoxin 125 mcg p.o. daily and amiodarone 200 mg twice daily. Heart rate and blood pressure improved. 2. Bilateral lower extremity lymphedema with nonhealing infected right lower extremity ulceration with surrounding cellulitis-following at wound center. Wound RN consult. Dressing changes with Adaptic. Hiram wraps bilateral lower extremities. Elevate lower extremities. Continue diuresis with Lasix as blood pressure tolerates. Wound culture pending. Given penicillin anaphylactic allergy, continue IV Levaquin. Plan for transition to oral regimen tomorrow. 3. Hypotension-Home antihypertensive regimen on hold. Asymptomatic. Improved. 4. Acute hypoxic respiratory insufficiency secondary to acute pulmonary embolism-history of PE as well. CTA with segmental pulmonary emboli within the right lung. Initiated on Xarelto 15 mg twice daily for 21 days followed by Xarelto 20 mg daily. Continue supplement oxygen to maintain O2 at or above 90%. Walking pulse ox prior to discharge. 5. Chronic COPD: No acute exacerbation. As needed albuterol aerosol. 6. Crohn's Disease: On chronic oral prednisone therapy. 7. 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 Now follows with [facility] heme/oncology for Gammagard injection. 8. Chronic Back Pain, DJD, history of compression Fractures: PT/OT. PRN pain regimen. 9. Hypertension: Home losartan regimen discontinued due to hypotension. 10. SARAHY: CPAP q HS. 11. Chronic Cholelithiasis: Continue outpatient follow-up. 12. Chronic pulmonary nodules: Continue outpatient follow-up. DVT prophylaxis-Xarelto This patient was seen by DAYAN Montano under the supervision of Dr. Wilson. <Cordell Wilson F - Last Filed: 02/06/20 15:58> - Physical Exam Vitals/I&O's: Vital Signs Temp Pulse Resp BP Pulse Ox 98.2 F 90 22 H 104/79 100 02/06/20 09:15 02/06/20 09:37 02/06/20 12:09 02/06/20 09:37 02/06/20 12:09 Oxygen Flow Rate (L/min) 3 Oxygen Delivery Method Nasal Cannula Weight: 274 lb 14.663 oz Body Mass Index (BMI) 45.7 Intake and Output for Last 24 Hours 02/04/20 02/05/20 02/06/20 23:59 23:59 23:59 Intake Total 1658.71 / 1858.71 1780 / 1780 1875.83 / 1875.83 Output Total 950 / 950 775 / 775 460 / 460 Balance 708.71 / 908.71 1005 / 1005 1415.83 / 1415.83 Microbiology Past 72 Hours 02/04/20 14:30 Wound - Leg, Right Gram Stain - Final 02/04/20 14:30 Wound - Leg, Right Wound Culture - Final Coag Negative Staph Laboratory Results 02/05/20 16:00: COVID-19 (NONA) Negative 02/06/20 06:35: WBC 13.5 H, RBC 4.18 L, Hgb 12.8, Hct 41.7, MCV 99.8 H, MCH 30.6, MCHC 30.7 L, RDW Std Deviation 50.2 H, RDW Coeff of Curtis 13.6, Plt Count 306, MPV 9.5 02/06/20 06:35: Sodium 137, Potassium 5.6 H, Chloride 107, Carbon Dioxide 29.0, Anion Gap 1 L, BUN 23 H, Creatinine 0.86, Estim Creat Clear Calc 57.90, Est GFR (MDRD) Af Amer 85, Est GFR (MDRD) Non-Af 71, BUN/Creatinine Ratio 26.9 H, Glucose 96, Calcium 7.6 L Current Medications Acetaminophen (Tylenol) 650 mg PO Q6H PRN PRN PRN Reason: Pain Score 1-10/Temp > 100.7 F Amiodarone HCl (Cordarone) 200 mg PO BID [facility] Last Admin: 02/06/20 09:39 Dose: 200 mg Documented by: Digoxin (Lanoxin) 125 mcg PO DAILY [facility] Last Admin: 02/06/20 09:37 Dose: 125 mcg Documented by: Diltiazem HCl (Cardizem) 30 mg PO Q6 [facility] Last Admin: 02/06/20 12:02 Dose: 30 mg Documented by: Diphenoxylate HCl/Atropine (Lomotil) 2 tablet PO TIDCM [facility] Last Admin: 02/06/20 12:41 Dose: Not Given Documented by: Erythromycin () 1 applic OPHTHALMIC QHS [facility] Last Admin: 02/05/20 21:14 Dose: 1 applicatio Documented by: Furosemide (Lasix) 20 mg IV BID@1000,1800 [facility] Last Admin: 02/06/20 12:46 Dose: 20 mg Documented by: Heparin Sodium (Beef Lung) () 50 units IV UD PRN PRN Reason: Port-a-Cath (VAD)Heparin Flush Sodium Chloride () 1,000 mls @ 75 mls/hr IV .[id number] [facility] Last Admin: 02/06/20 11:37 Dose: 75 mls/hr Documented by: Levofloxacin (Levaquin Iv) 750 mg in 150 mls @ 100 mls/hr IV DAILY [facility] Last Infusion: 02/06/20 11:05 Dose: Infused Documented by: Morphine Sulfate (Ms Contin) 15 mg PO TID [facility] Last Admin: 02/06/20 13:54 Dose: 15 mg Documented by: Prednisone () 40 mg PO DAILY@0800 [facility] Last Admin: 02/06/20 09:35 Dose: 40 mg Documented by: Rivaroxaban (Xarelto) 15 mg PO BIDCM [facility] Stop: 02/26/20 17:01 Last Admin: 02/06/20 09:40 Dose: 15 mg Documented by: Sodium Chloride () 10 - 40 ml IV UD PRN PRN Reason: Port-a-Cath (VAD) Flush Last Admin: 02/05/20 16:14 Dose: 10 ml Documented by: Sodium Chloride (0.9% Nacl (Sterile) Posiflush) 10 - 40 ml IV UD PRN PRN Reason: Port access or dressing change Addendum: Dr. Wilson I personally examined the patient and reviewed the chart. I agree with the above. 64-year-old female with new onset A. fib and a right-sided pulmonary embolism presents with shortness of breath. She states that she is feeling better than when she came in however she is still having significant shortness of breath whenever she is active. She does okay when at rest. She did have an echo on admission shows a hyperdynamic left ventricle with a normal EF. She is no longer tachycardic on the Cardizem, and digoxin combination. Also continue with her amiodarone. She is on Levaquin for possible right foot wound however this is only growing coag negative staph and rarely. We will continue to monitor. We will also continue with her Xarelto for her anticoagulation. Inpatient E&M: 48102 Subs Hosp L2
[2020-02-06] MEDS: Furosemide 20 MG/2 ML VIAL IV ×2 (12:46→18:08)
[2020-02-06] MEDS: Erythromycin Base 1 OPTH.TUBE 1 APPLIC OPHTHALMIC (21:12)
[2020-02-07] VITALS (9 sets, daily range): BP systolic 105–135; BP diastolic 57–87; PULSE 81–160; RESP 12–18; TEMP 36.7–36.9; O2SAT 92–97
[2020-02-07] MEDS: dilTIAZem 30 MG Tablet PO ×2 (00:07→05:55)
[2020-02-07] MEDS: 0.9% Normal Saline 1,000 ML 75 ML IV (00:08)
[2020-02-07] MEDS: morphine SR 15 MG Tablet PO ×2 (05:54→13:57)
[2020-02-07 06:51] LABS: Hematocrit 37.7 % (37-47); Hemoglobin 11.9 g/dL (12.0-15.0); Mean Corp Hgb Conc 31.6 g/dL (32-36); Mean Corpuscular Hgb 31.4 pg (27.0-32.0); Mean Corpuscular Volume 99.5 fL (81-99); Mean Platelet Vol. 9.1 fl (6.2-12.0); Platelet Count 334 K/mm3 (150-450); RBC Distribution Width CV 13.4 % (11.6-14.6); RBC Distribution Width SD 48.4 fl (35.1-43.9); Red Blood Count 3.79 M/mm3 (4.2-5.4); White Blood Count 10.8 K/mm3 (4.4-11.0)
[2020-02-07 07:15] LABS: Anion Gap 1 (5-15); BUN 23 mg/dL (7-18); BUN/Creat Ratio 25.8 RATIO (10-20); Calcium,Total 7.2 mg/dL (8.5-10.1); Chloride 103 mmol/L (98-107); Creatinine, Serum 0.89 mg/dL (0.55-1.02); EST Glomerular Filtration Rate 67 mL/min (>60); Est Glom Filt Rate - Afr Amer 82 mL/min (>60); Estimated Creatinine Clearance 55.95 ml/min; Glucose 92 mg/dL (74-106); Potassium 4.8 mmol/L (3.5-5.1); Sodium Level 137 mmol/L (136-145)
--- NOTE | 2020-02-07 08:22 | PCM.PN.CARD ---
Subjectve: The patient is awake and alert. She states she was up and ambulating and feeling better. She believes her breathing is better overall. She states that she would like to be able to be released home today if possible. Objective: Vital Signs Temp Pulse Resp BP Pulse Ox 98.0 F 82 18 119/66 96 02/07/20 05:51 02/07/20 08:00 02/07/20 05:51 02/07/20 05:51 02/07/20 07:45 Oxygen Flow Rate (L/min) 1 Oxygen Delivery Method Nasal Cannula Weight: 275 lb 5.718 oz Body Mass Index (BMI) 45.7 Intake and Output for Last 24 Hours 02/05/20 02/06/20 02/07/20 23:59 23:59 23:59 Intake Total 1780 / 1780 3542.08 / 3542.08 111.25 / 111.25 Output Total 775 / 775 1760 / 1760 250 / 250 Balance 1005 / 1005 1782.08 / 1782.08 -138.75 / -138.75 General: Awake, Alert, Oriented x 3, Cooperative, No Acute Distress, Obese HEENT: Atraumatic, Normocephalic, PERRL, EOMI, Sclera Non Icteric Neck: Supple, Good ROM, No JVD Lungs: Diminished Dilan Bases Cardiovascular: Irregular Rhythm, Normal S1, Normal S2 Abdomen: Bowel Sounds Present, Soft Extremities: - - Continued bilateral lower extremity edema Psych/Mental Status: Appropriate 02/07/20 06:35: Sodium 137, Potassium 4.8, Chloride 103, Carbon Dioxide 33.0 H, Anion Gap 1 L, BUN 23 H, Creatinine 0.89, Est GFR (MDRD) Af Amer 82, Est GFR (MDRD) Non-Af 67, BUN/Creatinine Ratio 25.8 H, Glucose 92, Calcium 7.2 L 02/07/20 06:35: WBC 10.8, RBC 3.79 L, Hgb 11.9 L, Hct 37.7, MCV 99.5 H, MCH 31.4, MCHC 31.6 L, Plt Count 334, MPV 9.1 Rhythm: Atrial fibrillation Medical Necessity - Tobacco Use Smoking Status: Former smoker Tobacco Use: Cigarettes Assessment/Plan 1. Atrial fibrillation The patient presents with atrial fibrillation. At the moment her rate appears to be controlled. She has been placed on antiarrhythmic therapy to assist with rate control and hopefully regaining sinus rhythm. She is also on anticoagulant therapy for this as well as her findings compatible with pulmonary emboli. At the moment the patient will continue rate control therapy, antiarrhythmic initiation, and anticoagulant therapy. Attempt will be made to simplify her medical regimen now that her rate appears to be improved. At the same time consideration will be given to her medical regimen and her lower blood pressures. Thus it may be reasonable to attempt to control her rate with digitalis as well as her amiodarone and avoid other medicines that may lower her blood pressure such as beta-blockers or calcium channel antagonist. Over time the patient will be considered for future synchronized biphasic DC cardioversion if she does not regain sinus rhythm. 2. Pulmonary emboli She has a history of pulmonary emboli for which she has been treated in the past and presents now with recurrent pulmonary emboli which may be a contributing factor to her atrial fibrillation and her overall findings. She has been placed back on anticoagulant therapy. 3. Pulmonary hypertension She has a longstanding history of pulmonary hypertension for which she follows with Dr. Banks of pulmonology. She has been on a vasodilator for this. 4. COPD She also has a history of COPD. Again she will need to continue evaluation care by her pulmonology team. 5. Hypertension/hypotension Again she will continue medical therapy with adjustment to try and balance her blood pressures. 6. Lymphedema She has been diagnosed with lymphedema. She states this is worsened since she has been on medical therapy including corticosteroid therapy. She had been undergoing diuresis for this with no significant improvement. She is also been evaluated at the wound center based upon skin breakdown, etc. Overall at the present time from a cardiovascular standpoint she will continue to be monitored, continue adjustment of her medications, and continue additional evaluation as deemed appropriate over time. This note was generated using a voice recognition system and there may be incorrect words, spelling or punctuation that were not noted when reviewing the office note prior to saving.
[2020-02-07 09:07] LABS: Digoxin Level 2.07 ng/mL (0.80-2.00)
[2020-02-07] MEDS: 0.9% Saline Lock 10 ML Syringe IV ×2 (09:48→12:00)
[2020-02-07] MEDS: levoFLOXacin IV 750 MG/150 ML BAG 100 MG IV (09:48)
[2020-02-07] MEDS: Furosemide 20 MG/2 ML VIAL IV (09:49)
[2020-02-07] MEDS: predniSONE 20 MG Tablet 40 MG PO (09:50)
[2020-02-07] MEDS: Rivaroxaban 15 MG Tablet PO (09:50)
[2020-02-07] MEDS: Amiodarone 200 MG Tablet PO (09:50)
[2020-02-07] MEDS: Digoxin 125 MCG Tablet PO (09:51)
[2020-02-07] MEDS: Diphenoxylate/Atrop 1 Tablet 2 TABLET PO ×2 (09:57→12:05)
--- NOTE | 2020-02-07 11:27 | PCM.DC ---
- Discharge Diagnoses Current Active Problems: Current Active and Chronic Problems (Last Reviewed 08/26/17 @ 09:59 by Enedina Ambrosio) Lymphedema of lower extremity (Chronic) New onset a-fib (Acute) You will use the following diet at home:: Calorie/Carbohydrate Controlled (specify 1200, 1400, etc), Cardiac Discharge Activity: Return to Normal Activity Call your doctor if you observe: Shortness of breath, Dizziness, Fainting spells, Chest pain Additional Instructions: You will take Xarelto 15 mg twice daily for a total of 21 days, complete prescribed prescription. You will then need follow-up with PCP to begin Xarelto 20 mg daily going forward. Recommend repeat BMP in 1 week by primary care provider. Take amiodarone 200 mg twice daily through 02/11/2020, then begin amiodarone 200 mg daily only. Allergies/Adverse Reactions: Allergies codeine Allergy (Severe, Verified 02/03/20 15:39) ANGIOEDEMA/LEG SWELLING Penicillins Allergy (Severe, Verified 02/03/20 15:39) ANGIOEDEMA/LEG SWELLING Sulfa (Sulfonamide Antibiotics) Allergy (Severe, Verified 02/03/20 15:39) ANGIOEDEMA/LEG SWELLING sulfasalazine [From Azulfidine] Allergy (Severe, Verified 02/03/20 15:39) ANGIOEDEMA/LEG SWELLING Medications to take at Discharge Erythromycin Ophthalmic 1 applic OPHTHALMIC QHS 06/20/14 Budesonide/Formoterol 160/4.5 [Symbicort 160/4.5 Mcg Inhaler (SP)] 2 puff INHALATION BID 04/25/16 Diphenoxylate/Atrop [Lomotil] 1 tab PO Q4H PRN PRN 10/29/16 Sildenafil Citrate 20 mg PO TID 08/10/17 Morphine [Morphine IR] 15 mg PO TID 10/05/18 Montelukast [Singulair] 10 mg PO DAILY 02/03/20 Amiodarone HCl [Cordarone] 200 mg PO BID #60 tab 02/07/20 Digoxin [Lanoxin] 125 mcg PO DAILY #30 tab 02/07/20 Furosemide [Lasix] 40 mg PO BID #60 tab 02/07/20 Rivaroxaban [Xarelto] 15 mg PO BIDCM #38 tab 02/07/20 levoFLOXacin tablet [Levaquin tablet] 750 mg PO DAILY #3 tab 02/07/20 predniSONE tablet 40 mg PO DAILY@0800 tablet 02/07/20 The following prescriptions were given: Amiodarone HCl [Cordarone] 200 mg PO BID #60 tab Transmission Status: Received by [facility] Digoxin [Lanoxin] 125 mcg PO DAILY #30 tab Transmission Status: Received by [facility] Furosemide [Lasix] 40 mg PO BID #60 tab Transmission Status: Pending to [facility] levoFLOXacin tablet [Levaquin tablet] 750 mg PO DAILY #3 tab Transmission Status: Pending to [facility] Rivaroxaban [Xarelto] 15 mg PO BIDCM #38 tab Transmission Status: Received by [facility] Primary Care Physician: Julian Brand Chi, MD [Primary Care Provider] - Please follow up with your Primary Care Physician in: 1 Week Test Results: Test results from this visit will be discussed in further detail at your follow-up appointment, if applicable. Please Follow Up With: Clinic,Wound When: 1 Week Please Follow Up With: Edmund Vick MD When: 1 Week, may see TRACTOR DRILL OPERATOR/PA Proposed Discharge Date: 02/07/20
--- NOTE | 2020-02-07 11:29 | CASEMGMT ---
Addendum entered by Milady Romano 02/07/20 11:59: Call from retail pharmacy and per Brittany, pt's co-pay for Xarelto is $31.45 at this time but they will apply a coupon card for her at this time. Angelia CONNOLLY CM Original Note: Pt does not qualify for home oxygen at this time and pt to be sent home on Xarelto at discharge with med e-scribed to [facility] retail pharmacy at this time. Call to pharmacy and they will call to notify this MOHSEN MCGARRY of coverage/co-pay once they run the meds. Angelia CONNOLLY CM
--- NOTE | 2020-02-07 12:31 | PCM.DC.SUM ---
<Hallie Bailey HAT CLEANER - Last Filed: 02/07/20 12:43> Discharge Date and Diagnosis Date of Admission: 02/03/20 Date of Discharge: 02/07/20 - Primary Discharge Diagnosis Acute Problems: Active Problems (Last Reviewed 08/26/17 @ 09:59 by Enedina Ambrosio) 1. New onset atrial fibrillation with RVR 2. Bilateral lower extremity lymphedema with nonhealing infected right lower extremity ulceration with surrounding cellulitis 3. Hypotension- resolved. 4. Acute hypoxic respiratory insufficiency secondary to acute pulmonary embolism 5. Chronic COPD 6. Crohn's Disease 7. IgG Deficiency 8. Chronic Back Pain, DJD, history of compression Fractures 9. Hypertension 10. SARAHY 11. Chronic Cholelithiasis 12. Chronic pulmonary nodules - Secondary Discharge Diagnosis Chronic Problems: Chronic Problems (Last Reviewed 08/26/17 @ 09:59 by Enedina Ambrosio) Lymphedema of lower extremity (Chronic) Skin ulcer of lower leg with fat layer exposed (Chronic) Infected skin ulcer with fat layer exposed (Chronic) Personal history of skin cancer (Chronic) Neoplasm of unspecified behavior of bone, soft tissue, and skin (Chronic) 3 cm lesion anterior frontal scalp Hypogammaglobulinemia (Chronic) IgG subclass deficiency (Chronic) Compression fracture of L1 lumbar vertebra (Chronic) Compression fracture of L2 (Chronic) Compression fracture of L3 lumbar vertebra (Chronic) Osteoporosis (Chronic) Chronic steroid use (Chronic) Degenerative disc disease (Chronic) Constipation (Chronic) Osteoarthritis (Chronic) Pulmonary hypertension (Chronic) Obstructive sleep apnea (Chronic) Constipation due to opioid therapy (Chronic) L3 pathological fracture (Chronic) Lumbosacral spondylosis (Chronic) DDD (degenerative disc disease), lumbosacral (Chronic) Chronic back pain (Chronic) COPD (chronic obstructive pulmonary disease) (Chronic) Hypertension (Chronic) Crohns disease (Chronic) Hospital Course and Treatment Imaging Results: Diagnostic Data Chest X-Ray 02/03/20 13:37 IMPRESSION: No acute abnormality is present. Electronically Signed: Raul Padilla, at 13:56 EDT , Service support , Chest CTA 02/05/20 09:41 IMPRESSION: Positive for segmental pulmonary emboli within the right lung. Electronically Signed: Dino Augustin MD at 11:50 EDT Tel , Service support , Dr. Shepherd/Dr. Vick- Cardiology Operations: None Procedures: 2-D Echocardiogram Summary of Care Provided: The patient is a 64 year old F admitted 02/03/2020 due to new onset atrial fibrillation, increased lower extremity swelling. 1. New onset atrial fibrillation with RVR-Cardiology consulted. Echocardiogram demonstrates an EF of 65%. Continue Xarelto. Continue digoxin 125 mcg p.o. daily and amiodarone 200 mg twice daily. After 1 week of twice daily amiodarone, will transition to once daily dosing. Patient remains in atrial fibrillation however rate is controlled on current regimen. Follow-up with cardiology in 1 week. 2. Bilateral lower extremity lymphedema with nonhealing infected right lower extremity ulceration with surrounding cellulitis-following at wound center. Wound RN consult. Dressing changes with Adaptic. Hiram wraps bilateral lower extremities. Elevate lower extremities. Continue home Lasix regimen. Wound culture grew rare coag negative staph. Complete course of Levaquin empirically. Follow-up with wound center. 3. Hypotension-significantly improved. Home losartan discontinued. 4. Acute hypoxic respiratory insufficiency secondary to acute pulmonary embolism-history of PE as well. CTA with segmental pulmonary emboli within the right lung. Initiated on Xarelto 15 mg twice daily for 21 days followed by Xarelto 20 mg daily. Walking pulse ox completed prior to discharge and patient did not require further supplemental oxygen. 5. Chronic COPD: No acute exacerbation. As needed albuterol aerosol. 6. Crohn's Disease: On chronic oral prednisone therapy. 7. 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 Now follows with [facility] heme/oncology for Gammagard injection. 8. Chronic Back Pain, DJD, history of compression Fractures: PRN pain regimen. 9. Hypertension: Home losartan regimen discontinued due to hypotension. 10. SARAHY: CPAP q HS. 11. Chronic Cholelithiasis: Continue outpatient follow-up. 12. Chronic pulmonary nodules: Continue outpatient follow-up. General: Alert, Oriented x3, Cooperative HEENT: Atraumatic, PERRLA, EOMI, Normocephalic Neck: Supple, No JVD, Negative Carotid Bruits Lungs: Clear to auscultation, Diminished Cardiovascular: - - Atrial fibrillation, rate controlled Abdomen: Bowel Sounds Present, Soft, Non Tender, Non-Distended, Obese Extremities: No clubbing, No cyanosis, Edema - Lymphedema bilateral lower extremities Skin: No rashes, No breakdown, - - Right lower extremity erythema and warmth improved. Right medial lower extremity ulceration. Musculoskeletal: No Tenderness to Palpation of Joints or Extremities Neurological: Cranial nerves II-XII grossly intact, Neuro grossly intact Psych/Mental Status: Normal Affect, Appropriate Patient seen and examined prior to discharge. Physical assessment as noted above. Patient is stable for discharge with follow up recommendations as noted above. This patient was seen by DAYAN Montano under the supervision of Dr. Wilson. - Physical Exam Vitals/I&O's: Vital Signs Temp Pulse Resp BP Pulse Ox 98.2 F 160 H 16 105/87 H 96 02/07/20 09:24 02/07/20 09:51 02/07/20 09:24 02/07/20 09:24 02/07/20 10:02 Oxygen Flow Rate (L/min) 1 Oxygen Delivery Method Room Air Weight: 275 lb 5.718 oz Body Mass Index (BMI) 45.7 Intake and Output for Last 24 Hours 02/05/20 02/06/20 02/07/20 23:59 23:59 23:59 Intake Total 1780 / 1780 3542.08 / 3542.08 1046.25 / 1046.25 Output Total 775 / 775 1760 / 1760 250 / 250 Balance 1005 / 1005 1782.08 / 1782.08 796.25 / 796.25 Microbiology Past 72 Hours 02/04/20 14:30 Wound - Leg, Right Gram Stain - Final 02/04/20 14:30 Wound - Leg, Right Wound Culture - Final Coag Negative Staph Laboratory Results 02/07/20 06:35: Sodium 137, Potassium 4.8, Chloride 103, Carbon Dioxide 33.0 H, Anion Gap 1 L, BUN 23 H, Creatinine 0.89, Estim Creat Clear Calc 55.95, Est GFR (MDRD) Af Amer 82, Est GFR (MDRD) Non-Af 67, BUN/Creatinine Ratio 25.8 H, Glucose 92, Calcium 7.2 L 02/07/20 06:35: WBC 10.8, RBC 3.79 L, Hgb 11.9 L, Hct 37.7, MCV 99.5 H, MCH 31.4, MCHC 31.6 L, RDW Std Deviation 48.4 H, RDW Coeff of Curtis 13.4, Plt Count 334, MPV 9.1 02/07/20 06:35: Digoxin 2.07 H* Current Medications Acetaminophen (Tylenol) 650 mg PO Q6H PRN PRN PRN Reason: Pain Score 1-10/Temp > 100.7 F Amiodarone HCl (Cordarone) 200 mg PO BID [facility] Stop: 02/11/20 22:01 Last Admin: 02/07/20 09:50 Dose: 200 mg Documented by: Amiodarone HCl (Cordarone) 200 mg PO DAILY [facility] Digoxin (Lanoxin) 125 mcg PO DAILY [facility] Last Admin: 02/07/20 09:51 Dose: 125 mcg Documented by: Diphenoxylate HCl/Atropine (Lomotil) 2 tablet PO TIDCM [facility] Last Admin: 02/07/20 12:05 Dose: 2 tablet Documented by: Erythromycin () 1 applic OPHTHALMIC QHS [facility] Last Admin: 02/06/20 21:12 Dose: 1 applicatio Documented by: Furosemide (Lasix) 20 mg IV BID@1000,1800 [facility] Last Admin: 02/07/20 09:49 Dose: 20 mg Documented by: Heparin Sodium (Beef Lung) () 50 units IV UD PRN PRN Reason: Port-a-Cath (VAD)Heparin Flush Last Admin: 02/07/20 12:00 Dose: 50 units Documented by: Levofloxacin (Levaquin Iv) 750 mg in 150 mls @ 100 mls/hr IV DAILY [facility] Last Infusion: 02/07/20 12:05 Dose: Infused Documented by: Morphine Sulfate (Ms Contin) 15 mg PO TID [facility] Last Admin: 02/07/20 05:54 Dose: 15 mg Documented by: Prednisone () 40 mg PO DAILY@0800 [facility] Last Admin: 02/07/20 09:50 Dose: 40 mg Documented by: [facility]) [facility] Stop: 02/26/20 17:01 Last Admin: 02/07/20 09:50 Dose: 15 mg Documented by: Sodium Chloride () 10 - 40 ml IV UD PRN PRN Reason: Port-a-Cath (VAD) Flush Last Admin: 02/07/20 12:00 Dose: 10 ml Documented by: Sodium Chloride (0.9% Nacl (Sterile) Posiflush) 10 - 40 ml IV UD PRN PRN Reason: Port access or dressing change Discharge Diet: Low fat/ Low Cholesterol, Carb Control Diet Discharge Activity: Return to Normal Activity Call your doctor if you observe: Shortness of breath, Dizziness, Fainting spells, Chest pain Home Medications: Medications to take at Discharge Erythromycin Ophthalmic 1 applic OPHTHALMIC QHS 06/20/14 Budesonide/Formoterol 160/4.5 [Symbicort 160/4.5 Mcg Inhaler (SP)] 2 puff INHALATION BID 04/25/16 Diphenoxylate/Atrop [Lomotil] 1 tab PO Q4H PRN PRN 10/29/16 Sildenafil Citrate 20 mg PO TID 08/10/17 Morphine [Morphine IR] 15 mg PO TID 10/05/18 Montelukast [Singulair] 10 mg PO DAILY 02/03/20 Amiodarone HCl [Cordarone] 200 mg PO BID #60 tab 02/07/20 Digoxin [Lanoxin] 125 mcg PO DAILY #30 tab 02/07/20 Furosemide [Lasix] 40 mg PO BID #60 tab 02/07/20 Rivaroxaban [Xarelto] 15 mg PO BIDCM #38 tab 02/07/20 levoFLOXacin tablet [Levaquin tablet] 750 mg PO DAILY #3 tab 02/07/20 predniSONE tablet 40 mg PO DAILY@0800 tab 02/07/20 Following Prescriptions Were Given to Patient: Amiodarone HCl [Cordarone] 200 mg PO BID #60 tab Transmission Status: Received by [facility] Digoxin [Lanoxin] 125 mcg PO DAILY #30 tab Transmission Status: Received by [facility] Furosemide [Lasix] 40 mg PO BID #60 tab Transmission Status: Received by [facility] levoFLOXacin tablet [Levaquin tablet] 750 mg PO DAILY #3 tab Transmission Status: Received by [facility] Rivaroxaban [Xarelto] 15 mg PO BIDCM #38 tab Transmission Status: Received by [facility] Primary Care Physician: Julian Brand Chi, MD [Primary Care Provider] - Please follow up with your Primary Care Physician in: 1 Week Please Follow Up With: Clinic,Wound When: 1 Week Please Follow Up With: Edmund Vick MD When: 1 Week, may see HAT CLEANER/PA Please Follow Up With: Edmund Vick MD Disposition: Home Minutes spent on discharge:: 35 Patient Condition:: Stable Medical Necessity - Tobacco Use Smoking Status: Former smoker Tobacco Use: Cigarettes Meaningful Use Info Meaningful Use Diagnoses (Choose all that apply): None applicable <Cordell Wilson F - Last Filed: 02/07/20 14:49> Discharge Date and Diagnosis - Secondary Discharge Diagnosis Chronic Problems: Chronic Problems (Last Reviewed 08/26/17 @ 09:59 by Enedina Ambrosio) Lymphedema of lower extremity (Chronic) Skin ulcer of lower leg with fat layer exposed (Chronic) Infected skin ulcer with fat layer exposed (Chronic) Personal history of skin cancer (Chronic) Neoplasm of unspecified behavior of bone, soft tissue, and skin (Chronic) 3 cm lesion anterior frontal scalp Hypogammaglobulinemia (Chronic) IgG subclass deficiency (Chronic) Compression fracture of L1 lumbar vertebra (Chronic) Compression fracture of L2 (Chronic) Compression fracture of L3 lumbar vertebra (Chronic) Osteoporosis (Chronic) Chronic steroid use (Chronic) Degenerative disc disease (Chronic) Constipation (Chronic) Osteoarthritis (Chronic) Pulmonary hypertension (Chronic) Obstructive sleep apnea (Chronic) Constipation due to opioid therapy (Chronic) L3 pathological fracture (Chronic) Lumbosacral spondylosis (Chronic) DDD (degenerative disc disease), lumbosacral (Chronic) Chronic back pain (Chronic) COPD (chronic obstructive pulmonary disease) (Chronic) Hypertension (Chronic) Crohns disease (Chronic) Hospital Course and Treatment Summary of Care Provided: The patient is a 64 year old F [] - Physical Exam Vitals/I&O's: Vital Signs Temp Pulse Resp BP Pulse Ox 98.5 F 81 12 108/57 L 92 02/07/20 13:50 02/07/20 13:50 02/07/20 13:50 02/07/20 13:50 02/07/20 13:50 Oxygen Flow Rate (L/min) 1 Oxygen Delivery Method Room Air Weight: 275 lb 5.718 oz Body Mass Index (BMI) 45.7 Intake and Output for Last 24 Hours 02/05/20 02/06/20 02/07/20 23:59 23:59 23:59 Intake Total 1780 / 1780 3542.08 / 3542.08 1496.25 / 1496.25 Output Total 775 / 775 1760 / 1760 550 / 550 Balance 1005 / 1005 1782.08 / 1782.08 946.25 / 946.25 Microbiology Past 72 Hours 02/04/20 14:30 Wound - Leg, Right Gram Stain - Final 02/04/20 14:30 Wound - Leg, Right Wound Culture - Final Coag Negative Staph Laboratory Results 02/07/20 06:35: Sodium 137, Potassium 4.8, Chloride 103, Carbon Dioxide 33.0 H, Anion Gap 1 L, BUN 23 H, Creatinine 0.89, Estim Creat Clear Calc 55.95, Est GFR (MDRD) Af Amer 82, Est GFR (MDRD) Non-Af 67, BUN/Creatinine Ratio 25.8 H, Glucose 92, Calcium 7.2 L 02/07/20 06:35: WBC 10.8, RBC 3.79 L, Hgb 11.9 L, Hct 37.7, MCV 99.5 H, MCH 31.4, MCHC 31.6 L, RDW Std Deviation 48.4 H, RDW Coeff of Curtis 13.4, Plt Count 334, MPV 9.1 02/07/20 06:35: Digoxin 2.07 H* Current Medications Acetaminophen (Tylenol) 650 mg PO Q6H PRN PRN PRN Reason: Pain Score 1-10/Temp > 100.7 F Amiodarone HCl (Cordarone) 200 mg PO BID [facility] Stop: 02/11/20 22:01 Last Admin: 02/07/20 09:50 Dose: 200 mg Documented by: Amiodarone HCl (Cordarone) 200 mg PO DAILY [facility] Digoxin (Lanoxin) 125 mcg PO DAILY [facility] Last Admin: 02/07/20 09:51 Dose: 125 mcg Documented by: Diphenoxylate HCl/Atropine (Lomotil) 2 tablet PO TIDCM [facility] Last Admin: 02/07/20 12:05 Dose: 2 tablet Documented by: Erythromycin () 1 applic OPHTHALMIC QHS [facility] Last Admin: 02/06/20 21:12 Dose: 1 applicatio Documented by: Furosemide (Lasix) 20 mg IV BID@1000,1800 [facility] Last Admin: 02/07/20 09:49 Dose: 20 mg Documented by: Heparin Sodium (Beef Lung) () 50 units IV UD PRN PRN Reason: Port-a-Cath (VAD)Heparin Flush Last Admin: 02/07/20 12:00 Dose: 50 units Documented by: Levofloxacin (Levaquin Iv) 750 mg in 150 mls @ 100 mls/hr IV DAILY [facility] Last Infusion: 02/07/20 12:05 Dose: Infused Documented by: Morphine Sulfate (Ms Contin) 15 mg PO TID [facility] Last Admin: 02/07/20 13:57 Dose: 15 mg Documented by: Prednisone () 40 mg PO DAILY@0800 [facility] Last Admin: 02/07/20 09:50 Dose: 40 mg Documented by: Rivaroxaban (Xarelto) [facility] Stop: 02/26/20 17:01 Last Admin: 02/07/20 09:50 Dose: 15 mg Documented by: Sodium Chloride () 10 - 40 ml IV UD PRN PRN Reason: Port-a-Cath (VAD) Flush Last Admin: 02/07/20 12:00 Dose: 10 ml Documented by: Sodium Chloride (0.9% Nacl (Sterile) Posiflush) 10 - 40 ml IV UD PRN PRN Reason: Port access or dressing change Addendum: Dr. Wilson I personally examined the patient and reviewed the chart. I agree with the above. 64-year-old female with new onset A. fib and a right-sided pulmonary embolism presents with shortness of breath. She states that she is feeling better than when she came in however she is still having significant shortness of breath whenever she is active. She does okay when at rest. She did have an echo on admission shows a hyperdynamic left ventricle with a normal EF. She is no longer tachycardic on the Cardizem, and digoxin combination. Also continue with her amiodarone. She is on Levaquin for possible right foot wound however this is only growing coag negative staph and rarely. We will continue to monitor. We will also continue with her Xarelto for her anticoagulation. 02/07/2020: She feels a bit better today, she gets less short of breath with exertion and her heart rate is better controlled. Her echo demonstrated an EF of 65% and she was continued on Xarelto 50 mg p.o. twice daily for 3 weeks and transition to 20 mg at night. Cardiology felt that we were okay to back off of the Cardizem today and just continue with digoxin and amiodarone. She will need to follow-up with cardiology in a week and may have a cardioversion in a couple months once she is fully anticoagulated. She did have an ambulatory pulse ox on the day of discharge which was unremarkable. For her wound she will follow-up with the wound care and will complete an empiric course of Levaquin. Cultures from the wound demonstrated a coag negative staph which is likely contaminant. Inpatient E&M: 29834 Disch Hosp
--- NOTE | 2020-02-07 14:45 | PHA.DC.MC ---
Pharmacy Service has performed discharge medication reconciliation and counseling for this patient. The patient was counseled on the following discharge medications and changes in medications for homegoing were reviewed. 1. XARELTO 2. AMIODARONE 3. LEVAQUIN 4. DIGOXIN The Reason for Use, instructions for use, and potential side effects were reviewed for all new medications. The patient's questions regarding all of their medications were answered. The patient was able to verbally demonstrate an understanding of their discharge medications. Home Medications Erythromycin Ophthalmic 1 applic OPHTHALMIC QHS 06/20/14 Budesonide/Formoterol 160/4.5 [Symbicort 160/4.5 Mcg Inhaler (SP)] 2 puff INHALATION BID 04/25/16 Diphenoxylate/Atrop [Lomotil] 1 tab PO Q4H PRN PRN 10/29/16 Sildenafil Citrate 20 mg PO TID 08/10/17 Morphine [Morphine IR] 15 mg PO TID 10/05/18 Montelukast [Singulair] 10 mg PO DAILY 02/03/20 Amiodarone HCl [Cordarone] 200 mg PO BID #60 tab 02/07/20 Digoxin [Lanoxin] 125 mcg PO DAILY #30 tab 02/07/20 Furosemide [Lasix] 40 mg PO BID #60 tab 02/07/20 Rivaroxaban [Xarelto] 15 mg PO BIDCM #38 tab 02/07/20 levoFLOXacin tablet [Levaquin tablet] 750 mg PO DAILY #3 tab 02/07/20 predniSONE tablet 40 mg PO DAILY@0800 tab 02/07/20 The patient's discharge medication list was reviewed for discrepancies and discrepancies were resolved.
--- NOTE | 2020-02-07 16:41 | NURSING ---
all documentation, care, and medication administration completed by Jillian Riley RN, done under the supervision of this RN.
--- NOTE | 2020-02-08 13:11 | CASEMGMT ---
MOHSEN CM DC PHONE CALL DC DATE: 02/07/2020 DC DISPOSITION: Home DC DIAGNOSIS: New onset atrial fibrillation with RVR LACE/STRATA: 04/26 F/U APPTS MADE PRIOR TO DC: yes PRESCRIPTIONS ACQUIRED BY PT: yes Attempted to contact patient via phone. No answer and no messaging with name identifier. Rosenda JAVIER RN ACM
== END 2020-02-07 16:33 | disposition home or self-care (01) | DRG 264 ==
LOC: ED 13:09 → PCU 15:53
PROVIDERS: Internal Medicine Cardiovascular Disease; Nurse Practitioner Family; Admitting Provider Internal Medicine; Emergency Provider Emergency Medicine; PCP Family Medicine Geriatric Medicine; Visit Provider Family Medicine
DX: I48.91 Unspecified atrial fibrillation (principal); I26.99 Other pulmonary embolism without acute cor pulmonale; D80.3 Selective deficiency of immunoglobulin G [IgG] subclasses; K50.90 Crohn's disease, unspecified, without complications; L97.812 Non-pressure chronic ulcer of other part of right lower leg with fat layer exposed; Z68.42 Body mass index [BMI] 45.0-49.9, adult; I89.0 Lymphedema, not elsewhere classified; G47.33 Obstructive sleep apnea (adult) (pediatric); J44.9 Chronic obstructive pulmonary disease, unspecified; M19.90 Unspecified osteoarthritis, unspecified site; G89.29 Other chronic pain; I12.9 Hypertensive chronic kidney disease with stage 1 through stage 4 chronic kidney disease, or unspecified chronic kidney disease; N18.3 Chronic kidney disease, stage 3 (moderate); K80.20 Calculus of gallbladder without cholecystitis without obstruction; I27.20 Pulmonary hypertension, unspecified; I95.9 Hypotension, unspecified; K21.9 Gastro-esophageal reflux disease without esophagitis; M79.7 Fibromyalgia; E66.01 Morbid (severe) obesity due to excess calories; Z87.891 Personal history of nicotine dependence; Z86.711 Personal history of pulmonary embolism; M54.5 Low back pain; Z79.52 Long term (current) use of systemic steroids
CPT/HCPCS: 11042; 36415; 71045; 71275; 80048; 80053; 80162; 81001; 83735; 83880; 84439; 84443; 84484; 85025; 85027; 85610; 85730; 87070; 87205; 87635; 93005; 93306; 97110; 97162; 97166; 97802; 99285; C9803; J7030; J7040; J7050; Q9957; Q9967; A4216; C8929; J1940; U0003

== ENCOUNTER → 2020-02-10 11:31 | Outpatient (CLI) | payer MEDICARE, OTHER, SELFPAY ==
[2020-02-03 15:34] VITALS: BMI 45.7
[2020-02-10 12:56] LABS: Anion Gap 7 (5-15); BUN 23 mg/dL (7-18); BUN/Creat Ratio 22.3 RATIO (10-20); Calcium,Total 7.7 mg/dL (8.5-10.1); Chloride 98 mmol/L (98-107); Creatinine, Serum 1.03 mg/dL (0.55-1.02); EST Glomerular Filtration Rate 57 mL/min (>60); Est Glom Filt Rate - Afr Amer 69 mL/min (>60); Glucose 105 mg/dL (74-106); Potassium 4.6 mmol/L (3.5-5.1); Sodium Level 136 mmol/L (136-145)
== END ==
PROVIDERS: PCP Family Medicine Geriatric Medicine; Visit Provider Family Medicine Geriatric Medicine
DX: I10 Essential (primary) hypertension (principal); R69 Illness, unspecified; R53.83 Other fatigue; N39.0 Urinary tract infection, site not specified
CPT/HCPCS: 36415; 80048; 87086; 87088

== ENCOUNTER → 2020-02-17 11:42 | Outpatient (CLI) | payer MEDICARE, OTHER, SELFPAY ==
[2020-02-15 14:07] VITALS: BMI 44.1
[2020-02-17 12:53] LABS: Anion Gap 5 (5-15); BUN 28 mg/dL (7-18); BUN/Creat Ratio 26.9 RATIO (10-20); Calcium,Total 8.2 mg/dL (8.5-10.1); Chloride 95 mmol/L (98-107); Creatinine, Serum 1.04 mg/dL (0.55-1.02); EST Glomerular Filtration Rate 56 mL/min (>60); Est Glom Filt Rate - Afr Amer 68 mL/min (>60); Glucose 116 mg/dL (74-106); Potassium 3.7 mmol/L (3.5-5.1); Sodium Level 137 mmol/L (136-145)
== END ==
PROVIDERS: PCP Family Medicine Geriatric Medicine; Visit Provider Family Medicine Geriatric Medicine
DX: E87.6 Hypokalemia (principal)
CPT/HCPCS: 36415; 80048

== ENCOUNTER → 2020-03-05 10:09 | Outpatient (CLI) | payer MEDICARE, OTHER, SELFPAY ==
[2020-02-15 14:07] VITALS: BMI 44.1
[2020-03-05 12:43] LABS: Absolute Lymphocyte Count 0.53 X10^3/uL (0.83-4.51); Basophil# 0.05 X10^3/uL; Basophil% 0.4 % (0-1); Eosinophil# 0.02 X10^3/uL; Eosinophils% 0.2 % (0-5); Hematocrit 41.4 % (37-47); Hemoglobin 12.5 g/dL (12.0-15.0); Lymphocyte # 0.53 X10^3/ul (4.0); Lymphocyte % 4.8 % (19-41); Mean Corp Hgb Conc 30.2 g/dL (32-36); Mean Corpuscular Hgb 30.9 pg (27.0-32.0); Mean Corpuscular Volume 102.5 fL (81-99); Mean Platelet Vol. 9.5 fl (6.2-12.0); Monocyte% 2.7 % (0-10); NRBC Flagged by Analyzer 0 % (0-5); Neutrophil # 9.97 X10^3/uL (2.7-7.7); Neutrophil % 89.5 % (47-70); POSITIVE DIFFERENTIAL YES; Platelet Count 348 K/mm3 (150-450); RBC Distribution Width CV 14.1 % (11.6-14.6); RBC Distribution Width SD 53.4 fl (35.1-43.9); Red Blood Count 4.04 M/mm3 (4.2-5.4); White Blood Count 11.1 K/mm3 (4.4-11.0)
[2020-03-05 13:10] LABS: Differential Indicated SCAN CRITERIA MET
[2020-03-05 13:14] LABS: Vitamin D,25 Hydroxy 21.9 ng/mL
[2020-03-05 13:18] LABS: Differential Comment SCANNED
[2020-03-05 13:20] LABS: ALB/GLOB Ratio 1.1 RATIO (0.9-2.4); AST(SGOT) 15 U/L (15-37); Alanine Aminotransfer ALT/SGPT 24 U/L (13-56); Albumin, Serum 3.2 g/dL (3.2-5.0); Alkaline Phosphatase 59 U/L (45-117); Anion Gap 5 (5-15); BUN 31 mg/dL (7-18); BUN/Creat Ratio 27.7 RATIO (10-20); Calcium,Total 9.2 mg/dL (8.5-10.1); Chloride 104 mmol/L (98-107); Creatinine, Serum 1.12 mg/dL (0.55-1.02); EST Glomerular Filtration Rate 52 mL/min (>60); Est Glom Filt Rate - Afr Amer 63 mL/min (>60); Glucose 142 mg/dL (74-106); Potassium 4.3 mmol/L (3.5-5.1); Protein, Total 6.2 g/dL (6.4-8.2); Sodium Level 140 mmol/L (136-145)
== END ==
PROVIDERS: PCP Family Medicine Geriatric Medicine; Visit Provider Family Medicine Geriatric Medicine
DX: E55.9 Vitamin D deficiency, unspecified (principal); I10 Essential (primary) hypertension
CPT/HCPCS: 36415; 80053; 82306; 84443; 85025

== ENCOUNTER → 2020-03-20 13:53 | Outpatient (CLI) | payer MEDICARE, OTHER, SELFPAY ==
[2020-02-15 14:07] VITALS: BMI 44.1
[2020-03-20 16:40] LABS: Anion Gap 6 (5-15); BUN 32 mg/dL (7-18); BUN/Creat Ratio 30.2 RATIO (10-20); Calcium,Total 9.1 mg/dL (8.5-10.1); Chloride 99 mmol/L (98-107); Creatinine, Serum 1.06 mg/dL (0.55-1.02); EST Glomerular Filtration Rate 55 mL/min (>60); Est Glom Filt Rate - Afr Amer 67 mL/min (>60); Glucose 121 mg/dL (74-106); Potassium 4.2 mmol/L (3.5-5.1); Sodium Level 137 mmol/L (136-145)
[2020-03-20 20:20] LABS: M R Staph aureus DNA By PCR Negative (Negative); Probe Check PASS; Staph aureus DNA By PCR NEGATIVE (Negative)
== END ==
PROVIDERS: PCP Family Medicine Geriatric Medicine; Visit Provider Family Medicine Geriatric Medicine
DX: E87.6 Hypokalemia (principal); B95.62 Methicillin resistant Staphylococcus aureus infection as the cause of diseases classified elsewhere
CPT/HCPCS: 36415; 80048; 87070; 87077; 87186; 87205; 87640

== ENCOUNTER 2020-03-21 09:13 | Outpatient (RCR) | payer MEDICARE, OTHER, SELFPAY ==
[2020-02-15 14:07] VITALS: BMI 44.1
[2020-02-23 00:34] VITALS: BP 116/77; PULSE 94; RESP 20; TEMP 35.9
[2020-03-21 09:26] VITALS: BP 164/77; PULSE 97; RESP 18; TEMP 36.4; BMI 45.1
[2020-03-21 10:01] VITALS: BP 160/78
--- NOTE | 2020-03-21 10:59 | PN.PCM_ITS ---
(1) Nonhealing nonsurgical wound with fat layer exposed Status: Acute Code(s): T14.8XXA - Other injury of unspecified body region, initial encounter (2) New onset a-fib Status: Acute Code(s): I48.91 - Unspecified atrial fibrillation (3) Chronic back pain Status: Chronic Qualifiers: Code(s): M54.9 - Dorsalgia, unspecified; G89.29 - Other chronic pain (4) DDD (degenerative disc disease), lumbosacral Status: Chronic Code(s): M51.37 - Other intervertebral disc degeneration, lumbosacral region (5) Lymphedema of lower extremity Status: Chronic Qualifiers: Code(s): I89.0 - Lymphedema, not elsewhere classified Type of Wound Date of Service: 03/21/20 Chief Complaint: Follow-up left lower leg wound from a car door History of Wound: 64-year-old white female with history of new onset A. fib currently on Xarelto. She hit her leg on a car door she thinks and developed an open wound on her left raymond. She has been seen by her family doctor Dr. Brand, he cultured and started her on Levaquin [address] Vick would like her to have leg studies done by Dr. Sinha and be seen by him. Progress of Wound: Patient has a perfectly round punctured looking deep wound on her left raymond. No sign of infection noted no redness or swelling patient denies pain. She has contusions all over her legs and feet and toes arms. Patient states that was from before she started Xarelto. - Physical Exam Vital Signs Temp Pulse Resp BP 97.5 F L 97 18 160/78 H 03/21/20 09:26 03/21/20 09:26 03/21/20 09:26 03/21/20 10:01 General: Oriented x3, Cooperative, Well developed HEENT: Atraumatic, PERRLA Oral: Moist Mucosa Neck: Supple, No JVD Lungs: Clear to auscultation, Normal air movement Cardiovascular: Regular rate, Regular Rhythm Abdomen: Bowel Sounds Present, Soft, Non Tender, No Hepato-splenomegaly Extremities: No clubbing, No edema - Lymphedema bilateral lower legs, Edema Skin: Ulcer/ Wound - Left raymond wound from trauma Wound Measurements and Assessment WC - Nurse 1 - General Ulcer Measurement Start: 03/21/20 09:20 Freq: Status: Active Protocol: Activity Type Activity Date Activity User E-Sign Co-Sign Detail Recorded Client Recorded Date Recorded By Document 03/21/20 09:20 MS [id number] 03/21/20 09:26 MS 03/21/20 09:20 Wound Center Nurse 1 [Ulcer Assessment] 3. LLE anterior -Combined with other wound No -Current Size (cm) - Length 0.7 -Current Size (cm) - Width 0.9 -Current Size (cm) - Depth 0.3 -Total Square Cm 0.63 -Photo Taken Yes -Tunneling No -Undermining/Tunneling No -Circular Undermining No -Exudate Amt Medium -Exudate Type Serosanguineous -Wound Margin Distinct, Outline Attached -Granulation Amt Medium (34-66%) -Granulation Quality [place] -Slough/Fibrin Yes -Necrosis Amt Medium (34-66%) -Necrotic Tissue Type Adherent Slough -Structure Exposed N/A -Texture (Cecilia-wound Skin Appearance) Assessed -Moisture (Cecilia-wound Skin Appearance Assessed ) -Color (Cecilia-wound Skin Appearance) Assessed, Ecchymosis, Hemosiderin Staining -Temperature (Cecilia-wound Skin No Abnormality Appearance) (Pt Warm) -Tenderness on Palpation (Cecilia-wound No Skin Appearance) -Ulcer Cleansing Wound Cleanser -Foul Odor after Cleansing No -Anesthetic Used 4% Lidocaine Solution [Edema Assessment] -Lower Limb Edema Present Yes -Right Calf (cm) 57.2 -Right Ankle (cm) 40 -Left Calf (cm) 49.5 -Left Ankle (cm) 36.2 WC - Nurse 2 - General Ulcer CM Notes Start: 03/21/20 09:20 Freq: Status: Active Protocol: Activity Type Activity Date Activity User E-Sign Co-Sign Detail Recorded Client Recorded Date Recorded By Document 03/21/20 09:45 MW [id number] 03/21/20 09:49 MW 03/21/20 09:45 Wound Center Nurse 2 [Procedure/Treatment] 3. LLE anterior -Time 09:47 -Correct Patient Yes -Correct Side, Site, Position Yes -Correct Procedure Yes -Procedure Performed Yes -Type of Procedure Debridement -Clinical Debridement Subcutaneous -Tissue Removed Subcutaneous -Post Debridement (cm) - Length 0.7 -Post Debridement (cm) - Width 0.9 -Post Debridement (cm) - Depth 0.4 -Total Square (Post) (cm) 0.63 -Area of Debridement (cm) - Length 0.7 -Area of Debridement (cm) - Width 0.9 -Total Square (Area) (cm) 0.63 -Tunneling No -Undermining/Tunneling No -Circular Undermining No -Wound/Ulcer Outcome Not Healed -Ulcer Cleansing Rinsed/ Irrigated with Saline -Foul Odor after Cleansing No -Bioengineered Tissue No -Bleeding Controlled with Pressure -Offloading No -Debridement - Subq, 1st 20sq cm Yes [See Physician Procedure note for Specifics] Pain Scale: 0-10 Numeric [Pain] -Is Patient Pain Free? Yes WC - Nurse 3 - General Ulcer D/C NN Start: 03/21/20 09:20 Freq: Status: Active Protocol: Activity Type Activity Date Activity User E-Sign Co-Sign Detail Recorded Client Recorded Date Recorded By Document 03/21/20 10:01 [id number] 03/21/20 10:02 03/21/20 10:01 Wound Care Nurse 3 [Wound Dressing] 3. LLE anterior -Ulcer Cleansing Rinsed/ Irrigated with Saline -Primary Dressing Applied Fibracol Plus 4x4 -Primary Dressing Covered/Secured Dry Gauze with -Other Covering abd -Fibracol Plus 4x4 1 [Compression Applied] Left -Tubular Bandage Single Layer -Size of Tubigrip Used Size F -Size F ($) 1 [Post Procedure Tolerated] -Treatment Response Procedure Tolerated Well Vital Signs [Blood Pressure] -Blood Pressure (90/60-120/80 mm Hg) 160/78 H -Blood Pressure Mean (mm Hg) 105 -Source Monitor -Position Sitting -Blood Pressure Location Left Arm Teaching: Wound Center [Wound Center Education] (Items with an * have Printed Materials Available- Please identify what is given to patient under the Teaching materials given to patient and caregiver Section. Compression Wraps & Stockings -Person Taught Patient -Teaching Method Discussion, Demonstration -Response to teaching Reinforcement needed WC - Visit Discharge [Visit Discharge Information] -Discharge Condition Stable -Ambulatory Status Ambulatory,Cane -Transportation Private Auto -Medication Reconcilliation completed No & provided to patient/care provider -Clinical Summary of Care Provided Yes Musculoskeletal: No Tenderness to Palpation of Joints or Extremities Lymphatic: No Cervical, Supraclavicular, or Inguinal Adenopathy Neurological: Cranial nerves II-XII grossly intact, Neuro grossly intact Psych/Mental Status: Normal Affect, Appropriate Debridement Note Post-Debridement Measurements/Treatment BRANDO - Nurse 2 - General Ulcer CM Notes Start: 03/21/20 09:20 Freq: Status: Active Protocol: Activity Type Activity Date Activity User E-Sign Co-Sign Detail Recorded Client Recorded Date Recorded By Document 03/21/20 09:45 MW [id number] 03/21/20 09:49 MW 03/21/20 09:45 Wound Center Nurse 2 3. LLE anterior -Time 09:47 -Correct Patient Yes -Correct Side, Site, Position Yes -Correct Procedure Yes -Procedure Performed Yes -Type of Procedure Debridement -Clinical Debridement Subcutaneous -Tissue Removed Subcutaneous -Post Debridement (cm) - Length 0.7 -Post Debridement (cm) - Width 0.9 -Post Debridement (cm) - Depth 0.4 -Total Square (Post) (cm) 0.63 -Area of Debridement (cm) - Length 0.7 -Area of Debridement (cm) - Width 0.9 -Total Square (Area) (cm) 0.63 -Tunneling No -Undermining/Tunneling No -Circular Undermining No -Wound/Ulcer Outcome Not Healed -Ulcer Cleansing Rinsed/ Irrigated with Saline -Foul Odor after Cleansing No -Bioengineered Tissue No -Bleeding Controlled with Pressure -Offloading No -Debridement - Subq, 1st 20sq cm Yes Pain Scale: 0-10 Numeric Is Patient Pain Free? Yes BRANDO - Nurse 3 - General Ulcer D/C NN Start: 03/21/20 09:20 Freq: Status: Active Protocol: Activity Type Activity Date Activity User E-Sign Co-Sign Detail Recorded Client Recorded Date Recorded By Document 03/21/20 10:01 RB [id number] 03/21/20 10:02 RB 03/21/20 10:01 Wound Care Nurse 3 3. LLE anterior -Ulcer Cleansing Rinsed/ Irrigated with Saline -Primary Dressing Applied Fibracol Plus 4x4 -Primary Dressing Covered/Secured with Dry Gauze -Other Covering abd -Fibracol Plus 4x4 1 Left -Tubular Bandage Single Layer -Size of Tubigrip Used Size F -Size F ($) 1 Treatment Response Procedure Tolerated Well Vital Signs Blood Pressure (90/60-120/80 mm Hg) 160/78 H Blood Pressure Mean (mm Hg) 105 Source Monitor Position Sitting Blood Pressure Location Left Arm Teaching: Wound Center Compression Wraps & Stockings -Person Taught Patient -Teaching Method Discussion, Demonstration -Response to teaching Reinforcement needed WC - Visit Discharge Discharge Condition Stable Ambulatory Status Ambulatory,Cane Transportation Private Auto Medication Reconcilliation completed & No provided to patient/care provider Clinical Summary of Care Provided Yes Wound debrided: Left raymond wound Type of Debridement: Excisional debridement Anesthesia Used: 4% Lidocaine Solution, 5% Lidocaine Gel Percentage of wound debrided: 100 Instrument Used: 5mm curette Tissue Removed: Fibrin Severity: Fat Layer Exposed Amount of bleeding with debridement: Mild Bleeding Controlled with: Pressure Patient tolerated procedure well Assessment/Plan Assessment: Obesity. Lymphedema bilateral lower legs. Nonhealing ulcer of the left lower leg. Long-term use of blood thinners Plan: Wash leg with antibacterial soap use upper call to wound base cover with 4 x 4 gauze with Tubigrip over top. Referred to Dr. Sinha for evaluation. follow up in 1 week
== END 2020-03-24 23:59 ==
LOC: WC 09:13
PROVIDERS: PCP Family Medicine Geriatric Medicine; Referring Provider Family Medicine Geriatric Medicine; Visit Provider Nurse Practitioner
DX: S81.832A Puncture wound without foreign body, left lower leg, initial encounter (principal); W20.8XXA Other cause of strike by thrown, projected or falling object, initial encounter; M54.5 Low back pain; I89.0 Lymphedema, not elsewhere classified; I48.91 Unspecified atrial fibrillation; M51.37 Other intervertebral disc degeneration, lumbosacral region; Z79.01 Long term (current) use of anticoagulants; E66.9 Obesity, unspecified
CPT/HCPCS: 11042; 99213; G0463

== ENCOUNTER → 2020-03-29 14:39 | Outpatient (CLI) | payer MEDICARE, OTHER, SELFPAY ==
[2020-03-21 09:26] VITALS: BMI 45.1
[2020-03-27 12:39] VITALS: BMI 45.1
[2020-03-29 17:44] LABS: Anion Gap 7 (5-15); BUN 25 mg/dL (7-18); BUN/Creat Ratio 19.5 RATIO (10-20); Calcium,Total 8.4 mg/dL (8.5-10.1); Chloride 99 mmol/L (98-107); Creatinine, Serum 1.28 mg/dL (0.55-1.02); EST Glomerular Filtration Rate 44 mL/min (>60); Est Glom Filt Rate - Afr Amer 54 mL/min (>60); Glucose 164 mg/dL (74-106); Potassium 3.8 mmol/L (3.5-5.1); Sodium Level 139 mmol/L (136-145)
== END ==
PROVIDERS: PCP Family Medicine Geriatric Medicine; Visit Provider Family Medicine Geriatric Medicine
DX: E87.6 Hypokalemia (principal)
CPT/HCPCS: 36415; 80048

== ENCOUNTER → 2020-04-05 16:27 | Outpatient (CLI) | payer MEDICARE, OTHER, SELFPAY ==
[2020-04-03 12:08] VITALS: BMI 45.1
[2020-04-05 17:47] LABS: Hematocrit 43.3 % (37-47); Hemoglobin 13.1 g/dL (12.0-15.0); Mean Corp Hgb Conc 30.3 g/dL (32-36); Mean Corpuscular Hgb 30.8 pg (27.0-32.0); Mean Corpuscular Volume 101.9 fL (81-99); Platelet Count 446 K/mm3 (150-450); RBC Distribution Width CV 13.4 % (11.6-14.6); RBC Distribution Width SD 50.7 fl (35.1-43.9); Red Blood Count 4.25 M/mm3 (4.2-5.4); White Blood Count 11.7 K/mm3 (4.4-11.0)
[2020-04-05 17:59] LABS: ALB/GLOB Ratio 1.1 RATIO (0.9-2.4); AST(SGOT) 12 U/L (15-37); Alanine Aminotransfer ALT/SGPT 24 U/L (13-56); Albumin, Serum 3.4 g/dL (3.2-5.0); Alkaline Phosphatase 57 U/L (45-117); Anion Gap 4 (5-15); BUN 24 mg/dL (7-18); BUN/Creat Ratio 23.1 RATIO (10-20); CRP < 2.90 mg/L (0.0-3.0); Calcium,Total 8.6 mg/dL (8.5-10.1); Chloride 102 mmol/L (98-107); Creatinine, Serum 1.04 mg/dL (0.55-1.02); EST Glomerular Filtration Rate 56 mL/min (>60); Est Glom Filt Rate - Afr Amer 68 mL/min (>60); Glucose 116 mg/dL (74-106); Potassium 4.8 mmol/L (3.5-5.1); Protein, Total 6.4 g/dL (6.4-8.2); Sodium Level 137 mmol/L (136-145)
[2020-04-10 03:07] LABS: QNTFERON TB Mitogen Value 2.01 IU/mL (.); QNTFERON TB Nil Value 0.02 IU/mL (.); QNTFERON TB1+ Ag Value 0.07 IU/mL (.); QNTFERON TB2+ Ag Value 0.02 IU/mL (.)
[2020-04-10 10:39] LABS: QNTIFERON TB Positive Criteria Negative (Negative)
== END ==
PROVIDERS: PCP Family Medicine Geriatric Medicine; Referring Provider Internal Medicine Gastroenterology; Visit Provider Internal Medicine Gastroenterology
DX: K50.919 Crohn's disease, unspecified, with unspecified complications (principal)
CPT/HCPCS: 36415; 80053; 85027; 86140; 86480

== ENCOUNTER → 2020-04-16 08:15 | Outpatient (CLI) | payer MEDICARE, OTHER, SELFPAY ==
[2020-04-03 12:08] VITALS: BMI 45.1
[2020-04-13 12:23] VITALS: BMI 45.1
--- NOTE | 2020-04-16 08:17 | CT_ITS ---
INDICATION: Crohn''s follow up, prior bowel resections x 5, hysterectomy, hypertension, afib. EXAMINATION: CT ABDOMEN AND PELVIS WITH CONTRAST - CT Abdomen And Pelvis W/ Contrast Injection FINDINGS: EXAM DESCRIPTION: CT scan of the abdomen and pelvis with IV contrast CLINICAL HISTORY: 64 years Female, Crohn''s follow up, prior bowel resections x 5, hysterectomy, hypertension, afib. COMPARISON: Previous CT scan obtained on 12/05/2019 TECHNIQUE: A CT scan of the abdomen and pelvis was performed initially with IV contrast contrast administration. Coronal and sagittal reconstruction images were reviewed. This exam was performed according to our departmental dose-optimization program, which includes automated exposure control, adjustment of the mA and/or kV according to patient size and/or use of iterative reconstruction technique. FINDINGS: The lung bases and the base of the heart are normal. The liver is normal.The spleen is normal.The adrenal glands are normal.The head, body, and tail of the pancreas are normal. The right and left kidneys were examined and appear to be normal. Both ureters appear to be normal, and no obstructive uropathy is identified. The abdominal aortal is normal along its course and distribution. No paraortic lymphadenopathy is seen. Cholelithiasis is identified. In the mid transverse portion of the colon there is an enhancing irregular area of colonic wall thickening of uncertain etiology. On the previous CT scan of 12/05/2019 this was not seen. This could represent a new focal area of Crohn''s disease, however, because of overhanging edges, an underlying neoplasm cannot be completely excluded. This lesion is best seen on cut 48 but is also seen on axial cut 49. The CT scan of the pelvis was then reviewed. The common iliac vessels, external iliac vessels, and common femoral vessels are normal along their course and distribution this patient''s had a previous right hemicolectomy with anastomosis between the proximal transverse colon and small intestine. No pelvis masses or lesions are seen. The appendix is normal. No pericecal inflammatory reaction is seen. Bone scanning windows of the lumbar spine and pelvis were reviewed in the coronal and sagittal planes and show some loss of vertebral body height due to an old vertebral body compression fracture of L1. CT/Abdomen/Pelvis WITH Contrast IMPRESSION: 1. Status post right hemicolectomy. 2. Cholelithiasis 3. Questionable enhancing lesion in the mid transverse portion of the colon with overhanging edges. This is of uncertain etiology and could represent Crohn''s disease, however, underlying neoplasm cannot be excluded. Electronically Signed: Justo Cam, at 13:43 EST Tel , Service support ,
[2020-04-16] MEDS: 0.9% Saline Lock 10 ML Syringe IV (09:40)
== END ==
PROVIDERS: PCP Family Medicine Geriatric Medicine; Referring Provider Internal Medicine Gastroenterology; Visit Provider Internal Medicine Gastroenterology
DX: R19.7 Diarrhea, unspecified (principal); K50.90 Crohn's disease, unspecified, without complications
CPT/HCPCS: 74177; Q9967; A4216

== ENCOUNTER 2020-04-20 12:00 | Outpatient (RCR) | payer MEDICARE, OTHER, SELFPAY ==
[2020-03-25 00:21] VITALS: BP 160/78; PULSE 97; RESP 18; TEMP 36.4
[2020-03-27 12:39] VITALS: BP 143/93; PULSE 110; RESP 18; TEMP 35.7; BMI 45.1
--- NOTE | 2020-03-27 13:49 | HP.PCM_ITS ---
(1) A-fib Status: Chronic Code(s): I48.91 - Unspecified atrial fibrillation (2) Compression fracture of lumbar vertebra Status: Chronic Qualifiers: Encounter type: initial encounter Code(s): S32.000A - Wedge compression fracture of unspecified lumbar vertebra, initial encounter for closed fracture (3) History of pulmonary embolism Status: Chronic Code(s): Z86.711 - Personal history of pulmonary embolism (4) Morbid obesity with BMI of 40.0-44.9, adult Status: Chronic Code(s): E66.01 - Morbid (severe) obesity due to excess calories; Z68.41 - Body mass index [BMI]40.0-44.9, adult (5) Nonhealing nonsurgical wound with fat layer exposed Status: Chronic Code(s): T14.8XXA - Other injury of unspecified body region, initial encounter (6) COPD (chronic obstructive pulmonary disease) Status: Chronic Qualifiers: Code(s): J44.9 - Chronic obstructive pulmonary disease, unspecified (7) Chronic back pain Status: Chronic Qualifiers: Back pain location: low back pain Code(s): M54.9 - Dorsalgia, unspecified; G89.29 - Other chronic pain (8) Chronic steroid use Status: Chronic Code(s): [id number] - (9) Crohns disease Status: Chronic Qualifiers: Gastrointestinal tract location: small intestine Code(s): K50.90 - Crohn's disease, unspecified, without complications (10) DDD (degenerative disc disease), lumbosacral Status: Chronic Code(s): M51.37 - Other intervertebral disc degeneration, lumbosacral region (11) Hypertension Status: Chronic Qualifiers: Code(s): I10 - Essential (primary) hypertension (12) Hypogammaglobulinemia Status: Chronic Code(s): D80.1 - Nonfamilial hypogammaglobulinemia (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 Code(s): D80.3 - Selective deficiency of immunoglobulin G [IgG] subclasses (14) Lymphedema of lower extremity Status: Chronic Qualifiers: Code(s): I89.0 - Lymphedema, not elsewhere classified (15) Obstructive sleep apnea Status: Chronic Code(s): G47.33 - Obstructive sleep apnea (adult) (pediatric) (16) Osteoarthritis Status: Chronic Code(s): M19.90 - Unspecified osteoarthritis, unspecified site (17) Osteoporosis Status: Chronic Code(s): M81.0 - Age-related osteoporosis without current pathological fracture (18) Personal history of skin cancer Status: Chronic Code(s): Z85.828 - Personal history of other malignant neoplasm of skin (19) Pulmonary hypertension Status: Chronic Code(s): I27.2 - Other secondary pulmonary hypertension (20) Skin ulcer of lower leg with fat layer exposed Status: Chronic Code(s): L97.902 - Non-pressure chronic ulcer of unspecified part of unspecified lower leg with fat layer exposed (21) Leg swelling Status: Chronic Code(s): M79.89 - Other specified soft tissue disorders (22) Leg edema Status: Chronic Code(s): R60.0 - Localized edema (23) Hypothyroidism Status: Chronic Code(s): E03.9 - Hypothyroidism, unspecified History of Present Illness Date of Service: 03/27/20 Chief Complaint: Severe swelling, edema, and lymphedema of both lower extremities, with an ulceration of the left anterior tibial surface History of Wound: This is a 64-year-old female with a history of chronic swelling, edema, and lymphedema in her lower extremities. She claims to a developed severe swelling, edema, and lymphedema in her lower extremities in September 2015. At that time, she was treated aggressively by conservative measures, which included pool therapy. Patient indicates that the swelling, edema, and lymphedema subsequently resolved. Since October 2019, however, the swelling, edema, and lymphedema in the patient's lower extremities has recurred. It has persisted since its most recent onset, and has been associated with the development of a small ulceration on the left anterior tibial surface since January 2020. The patient is morbidly obese. She sleeps in a recliner. She is not active, ambulating only in limited fashion using a cane. She sits idlly throughout the day. Patient suffers from multiple pre-existing medical problems, as detailed below. Many of these problems are, in part, indirectly related to the patient's lower extremity swelling and edema. A culture of the patient's left leg wound was performed by her primary care physician, Dr. Julian Brand, on 03/20/2020. The results were positive for Sphingomonas jeanne jungobilis, Corynebacterium minutissimum, and Turicella otitidis. The patient had originally been placed on Cipro, but when culture and sensitivity results were known, Cipro was found to be inadequate, and the patient has been switched by her primary care physician to Bactrim double strength. Past Medical History Past Medical History: Chronic Problems (Last Reviewed 02/16/20 @ 13:27 by Sarah WILDER, PA) Nonhealing nonsurgical wound with fat layer exposed (Chronic) A-fib (Chronic) Compression fracture of lumbar vertebra (Chronic) History of pulmonary embolism (Chronic) Morbid obesity with BMI of 40.0-44.9, adult (Chronic) Leg swelling (Chronic) Leg edema (Chronic) Hypothyroidism (Chronic) Lymphedema of lower extremity (Chronic) Skin ulcer of lower leg with fat layer exposed (Chronic) Infected skin ulcer with fat layer exposed (Chronic) Personal history of skin cancer (Chronic) Neoplasm of unspecified behavior of bone, soft tissue, and skin (Chronic) 3 cm lesion anterior frontal scalp Hypogammaglobulinemia (Chronic) IgG subclass deficiency (Chronic) Compression fracture of L1 lumbar vertebra (Chronic) Compression fracture of L2 (Chronic) Compression fracture of L3 lumbar vertebra (Chronic) Osteoporosis (Chronic) Chronic steroid use (Chronic) Degenerative disc disease (Chronic) Constipation (Chronic) Osteoarthritis (Chronic) Pulmonary hypertension (Chronic) Obstructive sleep apnea (Chronic) Constipation due to opioid therapy (Chronic) L3 pathological fracture (Chronic) Lumbosacral spondylosis (Chronic) DDD (degenerative disc disease), lumbosacral (Chronic) Chronic back pain (Chronic) COPD (chronic obstructive pulmonary disease) (Chronic) Hypertension (Chronic) Crohns disease (Chronic) Past Medical History: The patient's medical history is negative for myocardial infarction, congestive heart failure, cerebrovascular accident, diabetes mellitus, and hyperlipidemia. She does have a history of atrial fibrillation, for which she is on Xarelto. She also has had history of pulmonary embolism, first in September 2015, and again in January 2020. She is on Xarelto, which is expected to be lifelong. She also suffers from chronic obstructive pulmonary disease, Crohn's disease, immunoglobulin G deficiency, degenerative disc disease of the lumbar spine, obstructive sleep apnea, hypertension, hypothyroidism, osteoporosis, pulmonary hypertension, osteoarthritis, and is on long-term steroid therapy. Surgical History: hysterectomy, total knee arthroplasty - Left, - - Multiple small bowel resections, L3 kyphoplasty, right lower extremity surgery, TNA, port placement, left pneumonectomy. The patient is a Ab0. Allergies/Adverse Reactions: Allergies codeine Allergy (Severe, Verified 02/15/20 14:07) ANGIOEDEMA/LEG SWELLING Penicillins Allergy (Severe, Verified 02/15/20 14:07) ANGIOEDEMA/LEG SWELLING Sulfa (Sulfonamide Antibiotics) Allergy (Severe, Verified 02/15/20 14:07) ANGIOEDEMA/LEG SWELLING sulfasalazine [From Azulfidine] Allergy (Severe, Verified 02/15/20 14:07) ANGIOEDEMA/LEG SWELLING Home Medications: Ambulatory Orders Medication Instructions Recorded Erythromycin Ophthalmic 1 applic OPHTHALMIC QHS 06/20/14 Budesonide/Formoterol 160/4.5 2 puff INHALATION BID 04/25/16 [Symbicort 160/4.5 Mcg Inhaler (SP)] Diphenoxylate/Atrop [Lomotil] 1 tab PO Q4H PRN PRN 10/29/16 Sildenafil Citrate 20 mg PO TID 08/10/17 Morphine [Morphine IR] 15 mg PO TID 10/05/18 Montelukast [Singulair] 10 mg PO DAILY 02/03/20 predniSONE tablet 40 mg PO DAILY@0800 tab 02/07/20 pantoprazole 40 mg tablet,delayed 40 mg PO DAILY 02/15/20 release potassium chloride 20 mEq meq PO 02/15/20 tablet,extended release(part/cryst) rivaroxaban 20 mg tablet 20 mg PO DAILY tab 02/15/20 amiodarone 200 mg tablet 200 mg PO DAILY #90 tab 02/23/20 digoxin 125 mcg (0.125 mg) tablet 125 mcg PO DAILY #90 tab 02/23/20 Levofloxacin [Levaquin] 750 mg PO DAILY 03/21/20 Rivaroxaban [Xarelto] 20 mg PO DAILY 03/21/20 Bumetanide [Bumex] 2 mg PO BID 03/27/20 - Family History Maternal Family History: Family History (Last Reviewed 02/16/20 @ 13:27 by Sarah De La Fuente PA, PA) Father Anemia Heart disease Hypertension CVA (cerebral vascular accident) Mother Arthritis Cancer Osteoporosis Sister Arthritis Lung disease No pertinent history Paternal Family History: Family History (Last Reviewed 02/16/20 @ 13:27 by Sarah De La Fuente PA, PA) Father Anemia Heart disease Hypertension CVA (cerebral vascular accident) Mother Arthritis Cancer Osteoporosis Sister Arthritis Lung disease No pertinent history Social History: The patient lives alone. She is single. 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 She denies use of alcohol and tobacco products. Lives: Alone Smoking Status: Former smoker Tobacco Use: Non-smoker Alcohol: None Drugs: None Review of Systems Constitutional: Denies: Chills, Fever, Weight Change Eyes: Denies: Pain, Vision Change HEENT: Denies: Difficulty Hearing, Difficulty Swallowing, Sinus Congestion Cardiovascular: Denies: Chest Pain, Palpitations Respiratory: Denies: Cough, Shortness of Breath Gastrointestinal: Denies: Diarrhea, Nausea, Vomiting Genitourinary: Denies: Dysuria, Hematuria Endocrine: Denies: Heat/ Cold Intolerance, Polydipsia, Polyuria Hematologic/ Lymphatic: Denies: Easy Bruising, Easy Bleeding - Physical Exam Vital Signs Temp Pulse Resp BP 96.2 F L 110 H 18 143/93 H 03/27/20 12:39 03/27/20 12:39 03/27/20 12:39 03/27/20 12:39 General: Alert, Oriented x3, Cooperative, No apparent distress, Well developed, Well nourished, - - The patient is morbidly obese HEENT: Atraumatic, PERRLA, EOMI, Normocephalic Oral: Moist Mucosa Neck: No JVD Lungs: Normal air movement Abdomen: Soft, Non Tender, Non-Distended, Obese Extremities: No clubbing, No cyanosis, No Calf Tenderness, - - Severe swelling, edema, and lymphedema are noted in the patient's lower extremities bilaterally. A small ulceration is noted on the left anterior tibial surface. Mild dermatitic changes are noted diffusely. Wound Measurements and Assessment WC - Nurse 1 - General Ulcer Measurement Start: 03/27/20 12:39 Freq: Status: Active Protocol: Activity Type Activity Date Activity User E-Sign Co-Sign Detail Recorded Client Recorded Date Recorded By Document 03/27/20 12:39 BM [id number] 03/27/20 12:49 BMF 03/27/20 12:39 Wound Center Nurse 1 [Ulcer Assessment] 3. LLE anterior -Combined with other wound No -Current Size (cm) - Length 0.5 -Current Size (cm) - Width 0.9 -Current Size (cm) - Depth 0.2 -Total Square Cm 0.45 -Photo Taken No -Epithelialization None Present -Tunneling No -Undermining/Tunneling No -Circular Undermining No -Exudate Amt Large -Exudate Type Serous -Wound Margin Distinct, Outline Attached -Granulation Amt None Present (0 %) -Slough/Fibrin Yes -Necrosis Amt Large (67-100%) -Necrotic Tissue Type Adherent Slough -Texture (Cecilia-wound Skin Appearance) Assessed, Scarring -Moisture (Cecilia-wound Skin Appearance Assessed, ) Weeping -Color (Cecilia-wound Skin Appearance) Assessed, Ecchymosis -Temperature (Cecilia-wound Skin No Abnormality Appearance) (Pt Warm) -Tenderness on Palpation (Cecilia-wound No Skin Appearance) -Ulcer Cleansing Rinsed/ Irrigated with Saline -Foul Odor after Cleansing No -Anesthetic Used 4% Lidocaine Solution [Edema Assessment] -Lower Limb Edema Present Yes -Right Calf (cm) 57 -Right Ankle (cm) 43 -Left Calf (cm) 47.4 -Left Ankle (cm) 36.6 - Nurse 3 - General Ulcer D/C NN Start: 03/27/20 12:39 Freq: Status: Active Protocol: Activity Type Activity Date Activity User E-Sign Co-Sign Detail Recorded Client Recorded Date Recorded By Document 03/27/20 13:39 [facility] [id number] 03/27/20 13:40 [facility] 03/27/20 13:39 Wound Care Nurse 3 [Wound Dressing] 3. LLE anterior -Ulcer Cleansing Rinsed/ Irrigated with Saline -Foul Odor after Cleansing No -Primary Dressing Applied Fibracol Plus 4x4 -Primary Dressing Covered/Secured Secured with with Tape,Other -Other Covering abd -Fibracol Plus 4x4 1 [Compression Applied] Left -Tubular Bandage Single Layer -Size of Tubigrip Used Size F -Size F ($) 1 [Post Procedure Tolerated] -Treatment Response Procedure Tolerated Well Pain Scale: 0-10 Numeric [Pain] -Is Patient Pain Free? Yes - Visit Discharge [Visit Discharge Information] -Discharge Condition Stable -Ambulatory Status Ambulatory,Cane Neurological: Cranial nerves II-XII grossly intact, Neuro grossly intact Psych/Mental Status: Normal Affect, Appropriate, Alert and oriented to time, place, person, mood and affect Debridement Note Post-Debridement Measurements/Treatment WC - Nurse 3 - General Ulcer D/C NN Start: 03/27/20 12:39 Freq: Status: Active Protocol: Activity Type Activity Date Activity User E-Sign Co-Sign Detail Recorded Client Recorded Date Recorded By Document 03/27/20 13:39 [facility] [id number] 03/27/20 13:40 [facility] 03/27/20 13:39 Wound Care Nurse 3 3. LLE anterior -Ulcer Cleansing Rinsed/ Irrigated with Saline -Foul Odor after Cleansing No -Primary Dressing Applied Fibracol Plus 4x4 -Primary Dressing Covered/Secured with Secured with Tape,Other -Other Covering abd -Fibracol Plus 4x4 1 Left -Tubular Bandage Single Layer -Size of Tubigrip Used Size F -Size F ($) 1 Treatment Response Procedure Tolerated Well Pain Scale: 0-10 Numeric Is Patient Pain Free? Yes WC - Visit Discharge Discharge Condition Stable Ambulatory Status Ambulatory,Cane Laterality: Left - Anterior tibial surface Type of Debridement: Excisional debridement Anesthesia Used: 5% Lidocaine Gel, Cetacaine Depth: Down to and including healthy tissue, in the subcutaneous layer Percentage of wound debrided: 100 Instrument Used: 3mm curette Tissue Removed: Bioburden and nonviable tissue Severity: Fat Layer Exposed Amount of bleeding with debridement: Mild Bleeding Controlled with: Compression and gauze Patient tolerated procedure well Assessment/Plan Active Problems (Last Reviewed 02/16/20 @ 13:27 by Sarah De La Fuente PA, PA) Nonhealing nonsurgical wound with fat layer exposed (Chronic) A-fib (Chronic) Compression fracture of lumbar vertebra (Chronic) History of pulmonary embolism (Chronic) Morbid obesity with BMI of 40.0-44.9, adult (Chronic) Leg swelling (Chronic) Leg edema (Chronic) Lymphedema of lower extremity (Chronic) Skin ulcer of lower leg with fat layer exposed (Chronic) Personal history of skin cancer (Chronic) Hypogammaglobulinemia (Chronic) IgG subclass deficiency (Chronic) Osteoporosis (Chronic) Chronic steroid use (Chronic) Osteoarthritis (Chronic) Pulmonary hypertension (Chronic) Obstructive sleep apnea (Chronic) DDD (degenerative disc disease), lumbosacral (Chronic) Chronic back pain (Chronic) COPD (chronic obstructive pulmonary disease) (Chronic) Hypertension (Chronic) Crohns disease (Chronic) Assessment: This is a 64-year-old morbidly obese female with multiple pre- existing medical conditions, as listed above. She presents with severe swelling, edema, and lymphedema in her lower extremities, which has been chronic in nature for the last several years, but had been reasonably well controlled until October 2019. Patient sleeps in a recliner, sits for long periods each day, is relatively inactive, and is morbidly obese. It appears as though her daily habits are a major contributing factor to the swelling, edema, and lymphedema in her lower extremities. Recent culture results have been reviewed, and are documented above. In addition, she has undergone recent laboratory studies, the results of which are as follows: White blood count 11.1, hemoglobin 12.5, hematocrit 41.4, platelets 348,000, sodium 137, potassium 4.2 chloride 99, BUN 32, creatinine 1.06, glucose 121, calcium 9.1, total bilirubin 1.90, AST 15, ALT 24, alkaline phosphatase 59, total protein 6.2, albumin 3.2. Plan: A lengthy discussion has been undertaken with the patient with regard to her daily habits. Leg elevation has been recommended. She has been advised to sleep with her legs level with her heart, or higher. Leg elevation has also been recommended during daytime hours as well. Prolonged idle sitting has been discouraged. Activity has been encouraged. Weight loss has also been encouraged. We are to continue with compression to the lower extremities by means of Tubigrip's, which have already been implemented. The patient has been advised to continue with her prescription for Bactrim, as prescribed by her [facility] physician. Nutritional optimization has been recommended. We are to obtain a noninvasive lower extremity arterial study, to assess the arterial status in her lower extremities. Ultimately, it would be desired to enhance the degree of compression currently being administered to the patient's lower extremities. This can be achieved by means of graduated compression stockings, CircAid Velcro compression garments, etc. However, the patient lives alone, and complains that she may have difficulty in donning such compression. Ultimately, the patient may be a candidate for mechanical pneumatic compression pumps. It is likely that we will ultimately refer the patient to the Lymphedema Clinic once her left lower extremity ulceration is healed. We are to continue using Fibracol topically to the left lower extremity ulceration. Patient is to return in 1 week for reassessment. Influenza vaccine was not administered today. The patient is not a smoker. She weighs 265 pounds. She stands 5 feet 5 inches tall. Her BMI is 44.1, which places her in a class III obesity category. Weight loss has been recommended, in collaboration with her primary care physician in this regard has been advised. The patient has been able to lose significant amounts of weight voluntarily in the past.
--- NOTE | 2020-04-02 14:01 | ART_ITS ---
Reason For Study: Non healing wound Procedure A bilateral lower extremity continuous wave Doppler with analog waveform analysis,segmental pressures,and ankle brachial indexes without exercise. Left Segmental Pressures Left brachial= 142mmHg. Left posterior tibial artery = 198mmHg. Left dorsalis pedis artery = 198mmHg. Left digit = 163 mmHg. The left dorsalis pedis waveforms are triphasic. The left posterior tibial artery waveforms are triphasic. Right Segmental Pressures Right brachial= 144mmHg. Right posterior tibial artery = 251mmHg. Right dorsalis pedis artery = 199mmHg. Right digit = 155 mmHg. The right dorsalis pedis waveforms are triphasic. The right posterior tibial artery waveforms are triphasic. Indices The right ankle brachial index by the dorsalis pedis is 1.38. The right ankle brachial index by the posterior tibial artery is 1.74. The right digital-brachial index is 1.08. The left ankle brachial index by the dorsalis pedis is 1.38. The left ankle brachial index by the posterior tibial artery is 1.38. The left digital-brachial index is 1.13. Interpretation Summary Triphasic Doppler waveforms are noted at ankle level bilaterally. Pulse-volume recording waveform amplitudes appear diminished at digital level bilaterally, but satisfactory at low-thigh, calf, and ankle levels bilaterally. The resting right ankle-brachial index is supra-normal. The resting left ankle-brachial index is normal. Digital-brachial indices are normal bilaterally. There is evidence of arterial calcification at ankle level on the right. There is no evidence of significant arterial occlusive disease in the lower extremities bilaterally. Ordering Physician: Blayne Sinha MD Referring Physician: Julian Brand Chi Performed By: Milady Currie RVT
[2020-04-03 12:08] VITALS: BP 135/85; PULSE 102; RESP 18; TEMP 36.3; BMI 45.1
--- NOTE | 2020-04-03 13:10 | HP.PCM_ITS ---
(1) A-fib Status: Chronic Code(s): I48.91 - Unspecified atrial fibrillation (2) Compression fracture of lumbar vertebra Status: Chronic Qualifiers: Encounter type: initial encounter Code(s): S32.000A - Wedge compression fracture of unspecified lumbar vertebra, initial encounter for closed fracture (3) History of pulmonary embolism Status: Chronic Code(s): Z86.711 - Personal history of pulmonary embolism (4) Morbid obesity with BMI of 40.0-44.9, adult Status: Chronic Code(s): E66.01 - Morbid (severe) obesity due to excess calories; Z68.41 - Body mass index [BMI]40.0-44.9, adult (5) Nonhealing nonsurgical wound with fat layer exposed Status: Chronic Code(s): T14.8XXA - Other injury of unspecified body region, initial encounter (6) COPD (chronic obstructive pulmonary disease) Status: Chronic Qualifiers: Code(s): J44.9 - Chronic obstructive pulmonary disease, unspecified (7) Chronic back pain Status: Chronic Qualifiers: Back pain location: low back pain Code(s): M54.9 - Dorsalgia, unspecified; G89.29 - Other chronic pain (8) Chronic steroid use Status: Chronic Code(s): LNC5058 - (9) Crohns disease Status: Chronic Qualifiers: Gastrointestinal tract location: small intestine Code(s): K50.90 - Crohn's disease, unspecified, without complications (10) DDD (degenerative disc disease), lumbosacral Status: Chronic Code(s): M51.37 - Other intervertebral disc degeneration, lumbosacral region (11) Hypertension Status: Chronic Qualifiers: Code(s): I10 - Essential (primary) hypertension (12) Hypogammaglobulinemia Status: Chronic Code(s): D80.1 - Nonfamilial hypogammaglobulinemia (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 Code(s): D80.3 - Selective deficiency of immunoglobulin G [IgG] subclasses (14) Lymphedema of lower extremity Status: Chronic Qualifiers: Laterality: bilateral Code(s): I89.0 - Lymphedema, not elsewhere classified (15) Obstructive sleep apnea Status: Chronic Code(s): G47.33 - Obstructive sleep apnea (adult) (pediatric) (16) Osteoarthritis Status: Chronic Code(s): M19.90 - Unspecified osteoarthritis, unspecified site (17) Osteoporosis Status: Chronic Code(s): M81.0 - Age-related osteoporosis without current pathological fracture (18) Personal history of skin cancer Status: Chronic Code(s): Z85.828 - Personal history of other malignant neoplasm of skin (19) Pulmonary hypertension Status: Chronic Code(s): I27.2 - Other secondary pulmonary hypertension (20) Skin ulcer of lower leg with fat layer exposed Status: Chronic Qualifiers: Laterality: unspecified laterality Qualified Code(s): L97.902 - Non- pressure chronic ulcer of unspecified part of unspecified lower leg with fat layer exposed Code(s): L97.902 - Non-pressure chronic ulcer of unspecified part of unspecified lower leg with fat layer exposed (21) Leg swelling Status: Chronic Code(s): M79.89 - Other specified soft tissue disorders (22) Leg edema Status: Chronic Code(s): R60.0 - Localized edema (23) Hypothyroidism Status: Chronic Code(s): E03.9 - Hypothyroidism, unspecified (24) Chronic venous insufficiency Status: Chronic Code(s): I87.2 - Venous insufficiency (chronic) (peripheral) History of Present Illness Date of Service: 04/03/20 Chief Complaint: Severe swelling, edema, and lymphedema of both lower extremities, with an ulceration of the left anterior tibial surface History of Wound: This is a 64-year-old female with a history of chronic swelling, edema, and lymphedema in her lower extremities. She claims to have developed severe swelling, edema, and lymphedema in her lower extremities in September 2015. At that time, she was treated aggressively by conservative measures, which included pool therapy. Patient indicates that the swelling, edema, and lymphedema subsequently resolved. Since October 2019, however, the swelling, edema, and lymphedema in the patient's lower extremities has recurred. It has persisted since its most recent onset, and has been associated with the development of a small ulceration on the left anterior tibial surface since January 2020. The patient is morbidly obese. She sleeps in a recliner. She is not active, ambulating only in limited fashion using a cane. She sits idlly throughout the day. Patient suffers from multiple pre-existing medical problems, as detailed below. Many of these problems are, in part, indirectly related to the patient's lower extremity swelling and edema. A culture of the patient's left leg wound was performed by her primary care physician, Dr. Julian Brand, on 03/20/2020. The results were positive for Sphingomonas paucimobilis, Corynebacterium minutissimum, and Turicella otitidis. The patient had originally been placed on Cipro, but when culture and sensitivity results were known, Cipro was found to be inadequate, and the patient has been switched by her primary care physician to Bactrim double strength. Past Medical History Past Medical History: Chronic Problems (Last Reviewed 02/16/20 @ 13:27 by Sarah WILDER, PA) Nonhealing nonsurgical wound with fat layer exposed (Chronic) A-fib (Chronic) Compression fracture of lumbar vertebra (Chronic) History of pulmonary embolism (Chronic) Morbid obesity with BMI of 40.0-44.9, adult (Chronic) Leg swelling (Chronic) Leg edema (Chronic) Hypothyroidism (Chronic) Chronic venous insufficiency (Chronic) Lymphedema of lower extremity (Chronic) Skin ulcer of lower leg with fat layer exposed (Chronic) Infected skin ulcer with fat layer exposed (Chronic) Personal history of skin cancer (Chronic) Neoplasm of unspecified behavior of bone, soft tissue, and skin (Chronic) 3 cm lesion anterior frontal scalp Hypogammaglobulinemia (Chronic) IgG subclass deficiency (Chronic) Compression fracture of L1 lumbar vertebra (Chronic) Compression fracture of L2 (Chronic) Compression fracture of L3 lumbar vertebra (Chronic) Osteoporosis (Chronic) Chronic steroid use (Chronic) Degenerative disc disease (Chronic) Constipation (Chronic) Osteoarthritis (Chronic) Pulmonary hypertension (Chronic) Obstructive sleep apnea (Chronic) Constipation due to opioid therapy (Chronic) L3 pathological fracture (Chronic) Lumbosacral spondylosis (Chronic) DDD (degenerative disc disease), lumbosacral (Chronic) Chronic back pain (Chronic) COPD (chronic obstructive pulmonary disease) (Chronic) Hypertension (Chronic) Crohns disease (Chronic) Surgical History: hysterectomy, total knee arthroplasty - Left, - - Multiple small bowel resections, L3 kyphoplasty, right lower extremity surgery, TNA, port placement, left pneumonectomy. The patient is a Ab0. Allergies/Adverse Reactions: Allergies codeine Allergy (Severe, Verified 02/15/20 14:07) ANGIOEDEMA/LEG SWELLING Penicillins Allergy (Severe, Verified 02/15/20 14:07) ANGIOEDEMA/LEG SWELLING Sulfa (Sulfonamide Antibiotics) Allergy (Severe, Verified 02/15/20 14:07) ANGIOEDEMA/LEG SWELLING sulfasalazine [From Azulfidine] Allergy (Severe, Verified 02/15/20 14:07) ANGIOEDEMA/LEG SWELLING Home Medications: Ambulatory Orders Medication Instructions Recorded Erythromycin Ophthalmic 1 applic OPHTHALMIC QHS 06/20/14 Budesonide/Formoterol 160/4.5 2 puff INHALATION BID 04/25/16 [Symbicort 160/4.5 Mcg Inhaler (SP)] Diphenoxylate/Atrop [Lomotil] 1 tab PO Q4H PRN PRN 10/29/16 Sildenafil Citrate 20 mg PO TID 08/10/17 Morphine [Morphine IR] 15 mg PO TID 10/05/18 Montelukast [Singulair] 10 mg PO DAILY 02/03/20 predniSONE tablet 40 mg PO DAILY@0800 tab 02/07/20 pantoprazole 40 mg tablet,delayed 40 mg PO DAILY 02/15/20 release potassium chloride 20 mEq meq PO 02/15/20 tablet,extended release(part/cryst) rivaroxaban 20 mg tablet 20 mg PO DAILY tab 02/15/20 amiodarone 200 mg tablet 200 mg PO DAILY #90 tab 02/23/20 digoxin 125 mcg (0.125 mg) tablet 125 mcg PO DAILY #90 tab 02/23/20 Levofloxacin [Levaquin] 750 mg PO DAILY 03/21/20 Rivaroxaban [Xarelto] 20 mg PO DAILY 03/21/20 Bumetanide [Bumex] 2 mg PO BID 03/27/20 - Family History Maternal Family History: Family History (Last Reviewed 02/16/20 @ 13:27 by Sarah WILDER, PA) Father Anemia Heart disease Hypertension CVA (cerebral vascular accident) Mother Arthritis Cancer Osteoporosis Sister Arthritis Lung disease No pertinent history Paternal Family History: Family History (Last Reviewed 02/16/20 @ 13:27 by Sarah WILDER, PA) Father Anemia Heart disease Hypertension CVA (cerebral vascular accident) Mother Arthritis Cancer Osteoporosis Sister Arthritis Lung disease No pertinent history Lives: Alone Smoking Status: Former smoker Tobacco Use: Non-smoker Alcohol: None Drugs: None Review of Systems Constitutional: Denies: Chills, Fever, Weight Change Eyes: Denies: Pain, Vision Change HEENT: Denies: Difficulty Hearing, Difficulty Swallowing, Sinus Congestion Cardiovascular: Denies: Chest Pain, Palpitations Respiratory: Denies: Cough, Shortness of Breath Gastrointestinal: Denies: Diarrhea, Nausea, Vomiting Genitourinary: Denies: Dysuria, Hematuria Endocrine: Denies: Heat/ Cold Intolerance, Polydipsia, Polyuria Hematologic/ Lymphatic: Denies: Easy Bruising, Easy Bleeding - Physical Exam Vital Signs Temp Pulse Resp BP 97.3 F L 102 H 18 135/85 H 04/03/20 12:08 04/03/20 12:08 04/03/20 12:08 04/03/20 12:08 General: Alert, Oriented x3, Cooperative, No apparent distress, Well developed, Well nourished HEENT: Atraumatic, PERRLA, EOMI, Normocephalic Oral: Moist Mucosa Neck: No JVD Lungs: Normal air movement Abdomen: Non-Distended, Obese Extremities: No clubbing, No cyanosis, No Calf Tenderness, - - Severe swelling, edema, and lymphedema persist in the patient's lower extremities bilaterally. However, ankle circumferences are diminished as compared to 1 week previously. Scattered small varicosities are noted bilaterally, and scattered hyperpigmentation as well. Addt'l Wound Findings: A small ulceration persists on the left anterior tibial surface. Dimensions are documented elsewhere. There is no sign of infection or cellulitis. There is a small amount of bioburden. In addition, the patient has now developed an ulceration on the right anterior tibial surface. This has appeared since the patient's prior visit 1 week ago. It appears to be a split in the skin, likely due to the intense swelling. It appears as a relatively fresh breach of the skin, with subcutaneous tissue which is pink and healthy. Dimensions are documented elsewhere. Wound Measurements and Assessment WC - Nurse 1 - General Ulcer Measurement Start: 03/27/20 12:39 Freq: Status: Active Protocol: Activity Type Activity Date Activity User E-Sign Co-Sign Detail Recorded Client Recorded Date Recorded By Document 04/03/20 12:08 [facility] [id number] 04/03/20 12:22 BM 04/03/20 12:08 Wound Center Nurse 1 [Ulcer Assessment] #4- R MED LE -Combined with other wound No -Current Size (cm) - Length 0.5 -Current Size (cm) - Width 2.1 -Current Size (cm) - Depth 0.1 -Total Square Cm 1.05 -Date of Last Picture (Recall this 04/03/20 field) -Photo Taken Yes -Epithelialization None Present -Tunneling No -Undermining/Tunneling No -Circular Undermining No -Exudate Amt Large -Exudate Type Serous -Wound Margin Distinct, Outline Attached -Granulation Amt Large (67-100%) -Granulation Quality Red -Slough/Fibrin Yes -Necrosis Amt Small (1-33%) -Necrotic Tissue Type Adherent Slough -Texture (Cecilia-wound Skin Appearance) Assessed, Scarring -Moisture (Cecilia-wound Skin Appearance Assessed, ) Weeping -Color (Cecilia-wound Skin Appearance) Assessed -Temperature (Cecilia-wound Skin No Abnormality Appearance) (Pt Warm) -Tenderness on Palpation (Cecilia-wound Yes Skin Appearance) -Ulcer Cleansing Rinsed/ Irrigated with Saline -Foul Odor after Cleansing No -Anesthetic Used 4% Lidocaine Solution 3. LLE anterior -Combined with other wound No -Current Size (cm) - Length 0.4 -Current Size (cm) - Width 0.8 -Current Size (cm) - Depth 0.1 -Total Square Cm 0.32 -Photo Taken No -Epithelialization Small 1-33% -Tunneling No -Undermining/Tunneling No -Circular Undermining No -Exudate Amt Large -Exudate Type Serous -Wound Margin Flat & Intact -Granulation Amt Small (1-33%) -Granulation Quality Svensen -Slough/Fibrin Yes -Necrosis Amt Medium (34-66%) -Necrotic Tissue Type Adherent Slough -Texture (Cecilia-wound Skin Appearance) Assessed, Scarring -Moisture (Cecilia-wound Skin Appearance Assessed, ) Weeping -Color (Cecilia-wound Skin Appearance) Assessed -Temperature (Cecilia-wound Skin No Abnormality Appearance) (Pt Warm) -Tenderness on Palpation (Cecilia-wound No Skin Appearance) -Ulcer Cleansing Rinsed/ Irrigated with Saline -Foul Odor after Cleansing No -Anesthetic Used 4% Lidocaine Solution [Edema Assessment] -Lower Limb Edema Present Yes -Right Calf (cm) 57.1 -Right Ankle (cm) 33.5 -Left Calf (cm) 50 -Left Ankle (cm) 33.5 WC - Nurse 3 - General Ulcer D/C NN Start: 03/27/20 12:39 Freq: Status: Active Protocol: Activity Type Activity Date Activity User E-Sign Co-Sign Detail Recorded Client Recorded Date Recorded By Document 04/03/20 13:05 [facility] [id number] 04/03/20 13:06 [facility] 04/03/20 13:05 Wound Care Nurse 3 [Wound Dressing] #4- R MED LE -Ulcer Cleansing Rinsed/ Irrigated with Saline -Foul Odor after Cleansing No -Primary Dressing Applied Other -Other Dressing UNNA BOOT 3. LLE anterior -Ulcer Cleansing Rinsed/ Irrigated with Saline -Foul Odor after Cleansing No -Primary Dressing Applied Other -Other Dressing UNNA BOOT [Compression Applied] Right -Multi-Layered Wrap Application Unna Boot - Bilateral ($) -Unna Boots (Bilat) ($) 0 Left -Multi-Layered Wrap Application Unna Boot - Bilateral ($) -Unna Boots (Bilat) ($) 2 Pain Scale: 0-10 Numeric [Pain] -Is Patient Pain Free? Yes WC - Visit Discharge [Visit Discharge Information] -Discharge Condition Stable -Ambulatory Status Ambulatory,Cane -Transportation Private Auto Musculoskeletal: No Muscle Wasting Neurological: Cranial nerves II-XII grossly intact, Neuro grossly intact Psych/Mental Status: Normal Affect, Appropriate, Alert and oriented to time, pl irma, person, mood and affect Debridement Note Post-Debridement Measurements/Treatment WC - Nurse 2 - General Ulcer CM Notes Start: 03/27/20 12:39 Freq: Status: Active Protocol: Activity Type Activity Date Activity User E-Sign Co-Sign Detail Recorded Client Recorded Date Recorded By Document 03/27/20 16:[address] [id number] 03/27/20 16:31 PL 03/27/20 16:28 Wound Center Nurse 2 3. LLE anterior -Time 13:19 -Correct Patient Yes -Correct Side, Site, Position Yes -Correct Procedure Yes -Procedure Performed Yes -Type of Procedure Debridement -Clinical Debridement Subcutaneous -Tissue Removed Subcutaneous -Post Debridement (cm) - Length 0.5 -Post Debridement (cm) - Width 0.9 -Post Debridement (cm) - Depth 0.2 -Total Square (Post) (cm) 0.45 -Area of Debridement (cm) - Length 0.5 -Area of Debridement (cm) - Width 0.9 -Total Square (Area) (cm) 0.45 -Tunneling No -Undermining/Tunneling No -Circular Undermining No -Wound/Ulcer Outcome Not Healed -Ulcer Cleansing Rinsed/ Irrigated with Saline -Foul Odor after Cleansing No -Bioengineered Tissue No -Bleeding Controlled with Pressure -Treatment Response Procedure Tolerated Well -Debridement - Subq, 1st 20sq cm Yes Pain Scale: 0-10 Numeric Is Patient Pain Free? Yes - Nurse 3 - General Ulcer D/C NN Start: 03/27/20 12:39 Freq: Status: Active Protocol: Activity Type Activity Date Activity User E-Sign Co-Sign Detail Recorded Client Recorded Date Recorded By Document 03/27/20 13:39 [facility] [id number] 03/27/20 13:40 [facility] Document 04/03/20 13:05 [facility] [id number] 04/03/20 13:06 [facility] 03/27/20 04/03/20 13:39 13:05 Wound Care Nurse 3 #4- R MED LE -Ulcer Cleansing Rinsed/ Irrigated with Saline -Foul Odor after Cleansing No -Primary Dressing Applied Other -Other Dressing UNNA BOOT 3. LLE anterior -Ulcer Cleansing Rinsed/ Rinsed/ Irrigated with Irrigated with Saline Saline -Foul Odor after Cleansing No No -Primary Dressing Applied Fibracol Plus Other 4x4 -Other Dressing UNNA BOOT -Primary Dressing Covered/Secured with Secured with Tape,Other -Other Covering abd -Fibracol Plus 4x4 1 Right -Multi-Layered Wrap Application Unna Boot - Bilateral ($) -Unna Boots (Bilat) ($) 0 Left -Multi-Layered Wrap Application Unna Boot - Bilateral ($) -Unna Boots (Bilat) ($) 2 -Tubular Bandage Single Layer -Size of Tubigrip Used Size F -Size F ($) 1 Treatment Response Procedure Tolerated Well Pain Scale: 0-10 Numeric Is Patient Pain Free? Yes Yes - Visit Discharge Discharge Condition Stable Stable Ambulatory Status Ambulatory,Cane Ambulatory,Cane Transportation Private Auto Laterality: Left - Anterior tibial surface Type of Debridement: Excisional debridement Anesthesia Used: 5% Lidocaine Gel Depth: Down to and including healthy tissue, in the subcutaneous layer Percentage of wound debrided: 100 Instrument Used: 3mm curette Tissue Removed: Bioburden Severity: Fat Layer Exposed Amount of bleeding with debridement: Mild Bleeding Controlled with: Compression and gauze Patient tolerated procedure well Assessment/Plan Active Problems (Last Reviewed 02/16/20 @ 13:27 by Sarah WILDER, PA) Nonhealing nonsurgical wound with fat layer exposed (Chronic) A-fib (Chronic) Compression fracture of lumbar vertebra (Chronic) History of pulmonary embolism (Chronic) Morbid obesity with BMI of 40.0-44.9, adult (Chronic) Leg swelling (Chronic) Leg edema (Chronic) Hypothyroidism (Chronic) Lymphedema of lower extremity (Chronic) Skin ulcer of lower leg with fat layer exposed (Chronic) Personal history of skin cancer (Chronic) Hypogammaglobulinemia (Chronic) IgG subclass deficiency (Chronic) Osteoporosis (Chronic) Chronic steroid use (Chronic) Osteoarthritis (Chronic) Pulmonary hypertension (Chronic) Obstructive sleep apnea (Chronic) DDD (degenerative disc disease), lumbosacral (Chronic) Chronic back pain (Chronic) COPD (chronic obstructive pulmonary disease) (Chronic) Hypertension (Chronic) Crohns disease (Chronic) Assessment: This is a 64-year-old morbidly obese female with multiple pre- existing medical conditions, as listed above. She presented with severe swelling, edema, and lymphedema in her lower extremities, which has been chronic in nature for the last several years, but had been reasonably well controlled until October 2019. Patient sleeps in a recliner, sits for long periods each day, is relatively inactive, and is morbidly obese. It appears as though her daily habits are a major contributing factor to the swelling, edema, and lymphedema in her lower extremities. Recent culture results have been reviewed, and are documented above. She remains on Bactrim, with a few days remaining. In addition, she has undergone recent laboratory studies, the results of which are as follows: White blood count 11.1, hemoglobin 12.5, hematocrit 41.4, platelets 348,000, sodium 137, potassium 4.2 chloride 99, BUN 32, creatinine 1.06, glucose 121, calcium 9.1, total bilirubin 1.90, AST 15, ALT 24, alkaline phosphatase 59, total protein 6.2, albumin 3.2. Plan: A lengthy discussion has been undertaken with the patient with regard to her daily habits. Leg elevation has been recommended. She has been advised to sleep with her legs level with her heart, or higher. Leg elevation has also been recommended during daytime hours as well. Prolonged idle sitting has been discouraged. Activity has been encouraged. Weight loss has also been encouraged. A noninvasive lower extremity arterial study has been completed, showing no evidence of significant arterial occlusive disease in the lower extremities bilaterally. Therefore, we are to implement the use of multilayer Unna boots to the lower extremities bilaterally. These will be changed twice weekly. The patient has been advised to continue with her prescription for Bactrim, as prescribed by her primary care physician. Nutritional optimization has been recommended. We will also seek preauthorization for mechanical pneumatic compression pumps for the patient's lower extremities. The degree of swelling, edema, and lymphedema appears to warrant such pneumatic compression pumps, as an adjunct to the use of compression, elevation, activity, etc. It is likely that we will ultimately refer the patient to the Lymphedema Clinic once her left lower extremity ulcerations are healed. The patient is to return in 1 week for reassessment. Influenza vaccine was not administered today. The patient is not a smoker. She weighs 265 pounds. She stands 5 feet 5 inches tall. Her BMI is 44.1, which places her in a class III obesity category. Weight loss has been recommended, in collaboration with her primary care physician in this regard has been advised. The patient has been able to lose significant amounts of weight voluntarily in the past.
[2020-04-06 13:51] VITALS: BP 155/100; PULSE 110; RESP 18; TEMP 36.4; BMI 45.1
[2020-04-10 11:08] VITALS: TEMP 36.4; BMI 45.1
--- NOTE | 2020-04-10 11:36 | PCM.WC.HP ---
(1) A-fib Status: Chronic Code(s): I48.91 - Unspecified atrial fibrillation (2) Compression fracture of lumbar vertebra Status: Chronic Qualifiers: Encounter type: initial encounter Code(s): S32.000A - Wedge compression fracture of unspecified lumbar vertebra, initial encounter for closed fracture (3) History of pulmonary embolism Status: Chronic Code(s): Z86.711 - Personal history of pulmonary embolism (4) Morbid obesity with BMI of 40.0-44.9, adult Status: Chronic Code(s): E66.01 - Morbid (severe) obesity due to excess calories; Z68.41 - Body mass index [BMI]40.0-44.9, adult (5) Nonhealing nonsurgical wound with fat layer exposed Status: Chronic Code(s): T14.8XXA - Other injury of unspecified body region, initial encounter (6) COPD (chronic obstructive pulmonary disease) Status: Chronic Qualifiers: Code(s): J44.9 - Chronic obstructive pulmonary disease, unspecified (7) Chronic back pain Status: Chronic Qualifiers: Back pain location: low back pain Code(s): M54.9 - Dorsalgia, unspecified; G89.29 - Other chronic pain (8) Chronic steroid use Status: Chronic Code(s): TWK1640 - (9) Crohns disease Status: Chronic Qualifiers: Gastrointestinal tract location: small intestine Code(s): K50.90 - Crohn's disease, unspecified, without complications (10) DDD (degenerative disc disease), lumbosacral Status: Chronic Code(s): M51.37 - Other intervertebral disc degeneration, lumbosacral region (11) Hypertension Status: Chronic Qualifiers: Code(s): I10 - Essential (primary) hypertension (12) Hypogammaglobulinemia Status: Chronic Code(s): D80.1 - Nonfamilial hypogammaglobulinemia (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 Code(s): D80.3 - Selective deficiency of immunoglobulin G [IgG] subclasses (14) Lymphedema of lower extremity Status: Chronic Qualifiers: Laterality: bilateral Code(s): I89.0 - Lymphedema, not elsewhere classified (15) Obstructive sleep apnea Status: Chronic Code(s): G47.33 - Obstructive sleep apnea (adult) (pediatric) (16) Osteoarthritis Status: Chronic Code(s): M19.90 - Unspecified osteoarthritis, unspecified site (17) Osteoporosis Status: Chronic Code(s): M81.0 - Age-related osteoporosis without current pathological fracture (18) Personal history of skin cancer Status: Chronic Code(s): Z85.828 - Personal history of other malignant neoplasm of skin (19) Pulmonary hypertension Status: Chronic Code(s): I27.2 - Other secondary pulmonary hypertension (20) Skin ulcer of lower leg with fat layer exposed Status: Chronic Qualifiers: Laterality: unspecified laterality Qualified Code(s): L97.902 - Non-pressure chronic ulcer of unspecified part of unspecified lower leg with fat layer exposed Code(s): L97.902 - Non-pressure chronic ulcer of unspecified part of unspecified lower leg with fat layer exposed (21) Leg swelling Status: Chronic Code(s): M79.89 - Other specified soft tissue disorders (22) Leg edema Status: Chronic Code(s): R60.0 - Localized edema (23) Hypothyroidism Status: Chronic Code(s): E03.9 - Hypothyroidism, unspecified (24) Chronic venous insufficiency Status: Chronic Code(s): I87.2 - Venous insufficiency (chronic) (peripheral) History of Present Illness Date of Service: 04/10/20 Chief Complaint: Severe swelling, edema, and lymphedema of both lower extremities, with an ulceration of the left anterior tibial surface History of Wound: This is a 64-year-old female with a history of chronic swelling, edema, and lymphedema in her lower extremities. She claims to have developed severe swelling, edema, and lymphedema in her lower extremities in September 2015. At that time, she was treated aggressively by conservative measures, which included pool therapy. Patient indicates that the swelling, edema, and lymphedema subsequently resolved. Since October 2019, however, the swelling, edema, and lymphedema in the patient's lower extremities has recurred. It has persisted since its most recent onset, and has been associated with the development of a small ulceration on the left anterior tibial surface since January 2020. The patient is morbidly obese. She sleeps in a recliner. She is not active, ambulating only in limited fashion using a cane. She sits idlly throughout the day. Patient suffers from multiple pre-existing medical problems, as detailed below. Many of these problems are, in part, indirectly related to the patient's lower extremity swelling and edema. A culture of the patient's left leg wound was performed by her primary care physician, Dr. Julian Brand, on 03/20/2020. The results were positive for Sphingomonas paucimobilis, Corynebacterium minutissimum, and Turicella otitidis. The patient had originally been placed on Cipro, but when culture and sensitivity results were known, Cipro was found to be inadequate, and the patient has been switched by her primary care physician to Bactrim double strength. Past Medical History Past Medical History: Chronic Problems (Last Reviewed 02/16/20 @ 13:27 by Sarah WILDER, PA) Nonhealing nonsurgical wound with fat layer exposed (Chronic) A-fib (Chronic) Compression fracture of lumbar vertebra (Chronic) History of pulmonary embolism (Chronic) Morbid obesity with BMI of 40.0-44.9, adult (Chronic) Leg swelling (Chronic) Leg edema (Chronic) Hypothyroidism (Chronic) Chronic venous insufficiency (Chronic) Lymphedema of lower extremity (Chronic) Skin ulcer of lower leg with fat layer exposed (Chronic) Infected skin ulcer with fat layer exposed (Chronic) Personal history of skin cancer (Chronic) Neoplasm of unspecified behavior of bone, soft tissue, and skin (Chronic) 3 cm lesion anterior frontal scalp Hypogammaglobulinemia (Chronic) IgG subclass deficiency (Chronic) Compression fracture of L1 lumbar vertebra (Chronic) Compression fracture of L2 (Chronic) Compression fracture of L3 lumbar vertebra (Chronic) Osteoporosis (Chronic) Chronic steroid use (Chronic) Degenerative disc disease (Chronic) Constipation (Chronic) Osteoarthritis (Chronic) Pulmonary hypertension (Chronic) Obstructive sleep apnea (Chronic) Constipation due to opioid therapy (Chronic) L3 pathological fracture (Chronic) Lumbosacral spondylosis (Chronic) DDD (degenerative disc disease), lumbosacral (Chronic) Chronic back pain (Chronic) COPD (chronic obstructive pulmonary disease) (Chronic) Hypertension (Chronic) Crohns disease (Chronic) Surgical History: hysterectomy, total knee arthroplasty - Left, - - Multiple small bowel resections, L3 kyphoplasty, right lower extremity surgery, TNA, port placement, left pneumonectomy. The patient is a Ab0. Allergies/Adverse Reactions: Allergies codeine Allergy (Severe, Verified 02/15/20 14:07) ANGIOEDEMA/LEG SWELLING Penicillins Allergy (Severe, Verified 02/15/20 14:07) ANGIOEDEMA/LEG SWELLING Sulfa (Sulfonamide Antibiotics) Allergy (Severe, Verified 02/15/20 14:07) ANGIOEDEMA/LEG SWELLING sulfasalazine [From Azulfidine] Allergy (Severe, Verified 02/15/20 14:07) ANGIOEDEMA/LEG SWELLING Home Medications: Ambulatory Orders Medication Instructions Recorded Erythromycin Ophthalmic 1 applic OPHTHALMIC QHS 06/20/14 Budesonide/Formoterol 160/4.5 2 puff INHALATION BID 04/25/16 [Symbicort 160/4.5 Mcg Inhaler (SP)] Diphenoxylate/Atrop [Lomotil] 1 tab PO Q4H PRN PRN 10/29/16 Sildenafil Citrate 20 mg PO TID 08/10/17 Morphine [Morphine IR] 15 mg PO TID 10/05/18 Montelukast [Singulair] 10 mg PO DAILY 02/03/20 predniSONE tablet 40 mg PO DAILY@0800 tab 02/07/20 pantoprazole 40 mg tablet,delayed 40 mg PO DAILY 02/15/20 release potassium chloride 20 mEq meq PO 02/15/20 tablet,extended release(part/cryst) rivaroxaban 20 mg tablet 20 mg PO DAILY tab 02/15/20 amiodarone 200 mg tablet 200 mg PO DAILY #90 tab 02/23/20 digoxin 125 mcg (0.125 mg) tablet 125 mcg PO DAILY #90 tab 02/23/20 Levofloxacin [Levaquin] 750 mg PO DAILY 03/21/20 Rivaroxaban [Xarelto] 20 mg PO DAILY 03/21/20 Bumetanide [Bumex] 2 mg PO BID 03/27/20 - Family History Maternal Family History: Family History (Last Reviewed 02/16/20 @ 13:27 by Sarah WILDER, PA) Father Anemia Heart disease Hypertension CVA (cerebral vascular accident) Mother Arthritis Cancer Osteoporosis Sister Arthritis Lung disease No pertinent history Paternal Family History: Family History (Last Reviewed 02/16/20 @ 13:27 by Sarah WILDER, PA) Father Anemia Heart disease Hypertension CVA (cerebral vascular accident) Mother Arthritis Cancer Osteoporosis Sister Arthritis Lung disease No pertinent history Lives: Alone Smoking Status: Former smoker Tobacco Use: Non-smoker Alcohol: None Drugs: None Review of Systems Constitutional: Denies: Chills, Fever, Weight Change Eyes: Denies: Pain, Vision Change HEENT: Denies: Difficulty Hearing, Difficulty Swallowing, Sinus Congestion Cardiovascular: Denies: Chest Pain, Palpitations Respiratory: Denies: Cough, Shortness of Breath Gastrointestinal: Denies: Diarrhea, Nausea, Vomiting Genitourinary: Denies: Dysuria, Hematuria Endocrine: Denies: Heat/ Cold Intolerance, Polydipsia, Polyuria Hematologic/ Lymphatic: Denies: Easy Bruising, Easy Bleeding - Physical Exam Vital Signs Temp Pulse Resp BP 97.6 F L 110 H 18 155/100 H 04/10/20 11:08 04/06/20 13:51 04/06/20 13:51 04/06/20 13:51 General: Alert, Oriented x3, Cooperative, No apparent distress, Well developed, Well nourished, - - The patient is morbidly obese. HEENT: Atraumatic, PERRLA, EOMI, Normocephalic Oral: Moist Mucosa Neck: No JVD Lungs: Normal air movement Abdomen: Non-Distended Extremities: No clubbing, No cyanosis, No Calf Tenderness, - - Severe swelling, edema, and lymphedema persist in the lower extremities bilaterally. There are small ulcerations, one on each anterior tibial surface. Dimensions are documented elsewhere. There is a small amount of bioburden. There is no sign of infection or cellulitis. Addt'l Wound Findings: Circumference measurements in the lower extremities appear to be improving. Wound Measurements and Assessment WC - Nurse 1 - General Ulcer Measurement Start: 03/27/20 12:39 Freq: Status: Active Protocol: Activity Type Activity Date Activity User E-Sign Co-Sign Detail Recorded Client Recorded Date Recorded By Document 04/10/20 11:08 MARILYN [id number] 04/10/20 11:18 MARILYN 04/10/20 11:08 Wound Center Nurse 1 [Ulcer Assessment] #4- R MED LE -Combined with other wound No -Current Size (cm) - Length 0.4 -Current Size (cm) - Width 1.6 -Current Size (cm) - Depth 0.2 -Total Square Cm 0.64 -Photo Taken No -Epithelialization Small 1-33% -Tunneling No -Undermining/Tunneling No -Circular Undermining No -Exudate Amt Large -Exudate Type Serosanguineous -Wound Margin Flat & Intact -Granulation Amt Large (67-100%) -Granulation Quality Red -Slough/Fibrin Yes -Necrosis Amt Small (1-33%) -Necrotic Tissue Type Adherent Slough -Structure Exposed N/A -Texture (Cecilia-wound Skin Appearance) Assessed, Localized Edema -Moisture (Cecilia-wound Skin Appearance Assessed,Dry/ ) Scaly -Color (Cecilia-wound Skin Appearance) Assessed -Temperature (Cecilia-wound Skin No Abnormality Appearance) (Pt Warm) -Tenderness on Palpation (Cecilia-wound No Skin Appearance) -Ulcer Cleansing Wound Cleanser -Foul Odor after Cleansing No -Anesthetic Used 4% Lidocaine Solution 3. LLE anterior -Combined with other wound No -Current Size (cm) - Length 0.2 -Current Size (cm) - Width 0.4 -Current Size (cm) - Depth 0.2 -Total Square Cm 0.08 -Photo Taken No -Epithelialization Small 1-33% -Tunneling No -Undermining/Tunneling No -Circular Undermining No -Exudate Amt Large -Exudate Type Serosanguineous -Wound Margin Flat & Intact -Granulation Amt Large (67-100%) -Granulation Quality Red -Slough/Fibrin Yes -Necrosis Amt Small (1-33%) -Necrotic Tissue Type Adherent Slough -Structure Exposed N/A -Texture (Cecilia-wound Skin Appearance) Assessed, Localized Edema -Moisture (Cecilia-wound Skin Appearance Assessed,Dry/ ) Scaly -Color (Cecilia-wound Skin Appearance) Assessed -Temperature (Cecilia-wound Skin No Abnormality Appearance) (Pt Warm) -Tenderness on Palpation (Cecilia-wound No Skin Appearance) -Ulcer Cleansing Rinsed/ Irrigated with Saline -Foul Odor after Cleansing No -Anesthetic Used 4% Lidocaine Solution [Edema Assessment] -Lower Limb Edema Present Yes -Right Calf (cm) 56 -Right Ankle (cm) 31.5 -Left Calf (cm) 51.7 -Left Ankle (cm) 31.4 Musculoskeletal: No Muscle Wasting Neurological: Cranial nerves II-XII grossly intact, Neuro grossly intact Psych/Mental Status: Normal Affect, Appropriate, Alert and oriented to time, place, person, mood and affect Debridement Note Post-Debridement Measurements/Treatment WC - Nurse 2 - General Ulcer CM Notes Start: 03/27/20 12:39 Freq: Status: Active Protocol: Activity Type Activity Date Activity User E-Sign Co-Sign Detail Recorded Client Recorded Date Recorded By Document 03/27/20 16:28 PL [id number] 03/27/20 16:31 PL Document 04/03/20 18:20 PL [id number] 04/03/20 18:22 PL 03/27/20 04/03/20 16:28 18:20 Wound Center Nurse 2 #4- R MED LE -Time 12:40 -Correct Patient Yes -Correct Side, Site, Position Yes -Correct Procedure Yes -Procedure Performed Yes -Type of Procedure Debridement -Clinical Debridement Subcutaneous -Tissue Removed Subcutaneous -Post Debridement (cm) - Length 0.5 -Post Debridement (cm) - Width 2.1 -Post Debridement (cm) - Depth 0.1 -Total Square (Post) (cm) 1.05 -Area of Debridement (cm) - Length 0.5 -Area of Debridement (cm) - Width 2.1 -Total Square (Area) (cm) 1.05 -Tunneling No -Undermining/Tunneling No -Circular Undermining No -Wound/Ulcer Outcome Not Healed -Ulcer Cleansing Rinsed/ Irrigated with Saline -Foul Odor after Cleansing No -Bioengineered Tissue No -Bleeding Controlled with Pressure -Treatment Response Procedure Tolerated Well -Debridement - Subq, 1st 20sq cm No 3. LLE anterior -Time 13:19 12:40 -Correct Patient Yes Yes -Correct Side, Site, Position Yes Yes -Correct Procedure Yes Yes -Procedure Performed Yes Yes -Type of Procedure Debridement Debridement -Clinical Debridement Subcutaneous Subcutaneous -Tissue Removed Subcutaneous Subcutaneous -Post Debridement (cm) - Length 0.5 0.4 -Post Debridement (cm) - Width 0.9 0.8 -Post Debridement (cm) - Depth 0.2 0.1 -Total Square (Post) (cm) 0.45 0.32 -Area of Debridement (cm) - Length 0.5 0.4 -Area of Debridement (cm) - Width 0.9 0.8 -Total Square (Area) (cm) 0.45 0.32 -Tunneling No No -Undermining/Tunneling No No -Circular Undermining No No -Wound/Ulcer Outcome Not Healed Not Healed -Ulcer Cleansing Rinsed/ Rinsed/ Irrigated with Irrigated with Saline Saline -Foul Odor after Cleansing No No -Bioengineered Tissue No No -Bleeding Controlled with Pressure -Treatment Response Procedure Tolerated Well -Debridement - Subq, 1st 20sq cm Yes Yes Pain Scale: 0-10 Numeric Is Patient Pain Free? Yes Yes - Nurse 3 - General Ulcer D/C NN Start: 03/27/20 12:39 Freq: Status: Active Protocol: Activity Type Activity Date Activity User E-Sign Co-Sign Detail Recorded Client Recorded Date Recorded By Document 03/27/20 13:39 [facility] [id number] 03/27/20 13:40 [facility] Document 04/03/20 13:05 BM [id number] 04/03/20 13:06 BM Document 04/06/20 13:51 RB [id number] 04/06/20 13:56 RB 03/27/20 04/03/20 04/06/20 13:39 13:05 13:51 Wound Care Nurse 3 #4- R MED LE -Ulcer Cleansing Rinsed/ Irrigated with Saline -Foul Odor after Cleansing No -Primary Dressing Applied Other -Other Dressing UNNA BOOT 3. LLE anterior -Ulcer Cleansing Rinsed/ Rinsed/ Irrigated with Irrigated with Saline Saline -Foul Odor after Cleansing No No -Primary Dressing Applied Fibracol Plus Other 4x4 -Other Dressing UNNA BOOT -Primary Dressing Covered/Secured with Secured with Tape,Other -Other Covering abd -Fibracol Plus 4x4 1 Right -Multi-Layered Wrap Application Unna Boot - Unna Boot - Bilateral ($) Bilateral ($) -Unna Boots (Bilat) ($) 2 2 Left -Tubular Bandage Single Layer -Size of Tubigrip Used Size F -Size F ($) 1 -Other unna bilat Treatment Response Procedure Procedure Tolerated Well Tolerated Well Vital Signs Temperature (97.8 F-99.1 F) 97.6 F L Temperature Source Temporal Pulse Rate (60-100) 110 H Pulse Location Monitor Respiratory Rate (12-18) 18 Respiratory rate source Observation Blood Pressure (90/60-120/80) 155/100 H Blood Pressure Mean (mm Hg) 118 Source Monitor Position Semi-Fowlers Blood Pressure Location Left Arm Pain Scale: 0-10 Numeric Is Patient Pain Free? Yes Yes Yes - Visit Discharge Discharge Condition Stable Stable Stable Ambulatory Status Ambulatory,Cane Ambulatory,Cane Ambulatory,Cane Transportation Private Auto Private Auto Medication Reconcilliation completed & No provided to patient/care provider Clinical Summary of Care Provided Yes Laterality: Right - Anterior tibial surface Type of Debridement: Excisional debridement Anesthesia Used: 5% Lidocaine Gel Depth: Down to and including healthy tissue, in the subcutaneous layer Percentage of wound debrided: 100 Instrument Used: 3mm curette Tissue Removed: Bioburden Severity: Fat Layer Exposed Amount of bleeding with debridement: Mild Bleeding Controlled with: Compression and gauze Patient tolerated procedure well - Additional Wound Laterality: Left - Anterior tibial surface Type of Debridement: Excisional debridement Anesthesia Used: 5% Lidocaine Gel Depth: Down to and including healthy tissue, in the subcutaneous layer Percentage of wound debrided: 100 Instrument Used: 3mm curette Tissue Removed: Bioburden Severity: Fat Layer Exposed Amount of bleeding with debridement: Mild Bleeding Controlled with: Compression and gauze Patient tolerated procedure: Patient tolerated procedure well Assessment/Plan Active Problems (Last Reviewed 02/16/20 @ 13:27 by Sarah WILDER, PA) Nonhealing nonsurgical wound with fat layer exposed (Chronic) A-fib (Chronic) Compression fracture of lumbar vertebra (Chronic) History of pulmonary embolism (Chronic) Morbid obesity with BMI of 40.0-44.9, adult (Chronic) Leg swelling (Chronic) Leg edema (Chronic) Hypothyroidism (Chronic) Chronic venous insufficiency (Chronic) Lymphedema of lower extremity (Chronic) Skin ulcer of lower leg with fat layer exposed (Chronic) Personal history of skin cancer (Chronic) Hypogammaglobulinemia (Chronic) IgG subclass deficiency (Chronic) Osteoporosis (Chronic) Chronic steroid use (Chronic) Osteoarthritis (Chronic) Pulmonary hypertension (Chronic) Obstructive sleep apnea (Chronic) DDD (degenerative disc disease), lumbosacral (Chronic) Chronic back pain (Chronic) COPD (chronic obstructive pulmonary disease) (Chronic) Hypertension (Chronic) Crohns disease (Chronic) Assessment: This is a 64-year-old morbidly obese female with multiple pre-existing medical conditions, as listed above. She presented with severe swelling, edema, and lymphedema in her lower extremities, which has been chronic in nature for the last several years, but had been reasonably well controlled until October 2019. Patient sleeps in a recliner, sits for long periods each day, is relatively inactive, and is morbidly obese. It appears as though her daily habits are a major contributing factor to the swelling, edema, and lymphedema in her lower extremities. She has undergone recent laboratory studies, the results of which are as follows: White blood count 11.1, hemoglobin 12.5, hematocrit 41.4, platelets 348,000, sodium 137, potassium 4.2 chloride 99, BUN 32, creatinine 1.06, glucose 121, calcium 9.1, total bilirubin 1.90, AST 15, ALT 24, alkaline phosphatase 59, total protein 6.2, albumin 3.2. Plan: A lengthy discussion has been undertaken with the patient with regard to her daily habits. Leg elevation has been recommended. She has been advised to sleep with her legs level with her heart, or higher. Leg elevation has also been recommended during daytime hours as well. Prolonged idle sitting has been discouraged. Activity has been encouraged. Weight loss has also been encouraged. A noninvasive lower extremity arterial study has been completed, showing no evidence of significant arterial occlusive disease in the lower extremities bilaterally. We are to continue the use of multilayer Unna boots to the lower extremities bilaterally. These will be changed twice weekly. We will use Promogran topically at the site of each wound on the anterior tibial surface bilaterally. Promogran will be changed twice weekly as well. Nutritional optimization has been recommended. We await the receipt of mechanical pneumatic compression pumps for the patient's lower extremities. These are anticipated any day. The degree of swelling, edema, and lymphedema appears to warrant such pneumatic compression pumps, as an adjunct to the use of compression, elevation, activity, etc. It is likely that we will ultimately refer the patient to the Lymphedema Clinic once her lower extremity ulcerations are healed. The patient is to return in 1 week for reassessment. Influenza vaccine was not administered today. The patient is not a smoker. She weighs 265 pounds. She stands 5 feet 5 inches tall. Her BMI is 44.1, which places her in a class III obesity category. Weight loss has been recommended, in collaboration with her primary care physician in this regard has been advised. The patient has been able to lose significant amounts of weight voluntarily in the past.
[2020-04-13 12:23] VITALS: BP 152/84; PULSE 108; RESP 18; TEMP 36.4; BMI 45.1
[2020-04-17 10:19] VITALS: RESP 16; TEMP 36; BMI 45.1
--- NOTE | 2020-04-17 10:49 | PCM.WC.HP ---
(1) A-fib Status: Chronic Code(s): I48.91 - Unspecified atrial fibrillation (2) Compression fracture of lumbar vertebra Status: Chronic Qualifiers: Encounter type: initial encounter Code(s): S32.000A - Wedge compression fracture of unspecified lumbar vertebra, initial encounter for closed fracture (3) History of pulmonary embolism Status: Chronic Code(s): Z86.711 - Personal history of pulmonary embolism (4) Morbid obesity with BMI of 40.0-44.9, adult Status: Chronic Code(s): E66.01 - Morbid (severe) obesity due to excess calories; Z68.41 - Body mass index [BMI]40.0-44.9, adult (5) Nonhealing nonsurgical wound with fat layer exposed Status: Chronic Code(s): T14.8XXA - Other injury of unspecified body region, initial encounter (6) COPD (chronic obstructive pulmonary disease) Status: Chronic Qualifiers: Code(s): J44.9 - Chronic obstructive pulmonary disease, unspecified (7) Chronic back pain Status: Chronic Qualifiers: Back pain location: low back pain Code(s): M54.9 - Dorsalgia, unspecified; G89.29 - Other chronic pain (8) Chronic steroid use Status: Chronic Code(s): ELD4960 - (9) Crohns disease Status: Chronic Qualifiers: Gastrointestinal tract location: small intestine Code(s): K50.90 - Crohn's disease, unspecified, without complications (10) DDD (degenerative disc disease), lumbosacral Status: Chronic Code(s): M51.37 - Other intervertebral disc degeneration, lumbosacral region (11) Hypertension Status: Chronic Qualifiers: Code(s): I10 - Essential (primary) hypertension (12) Hypogammaglobulinemia Status: Chronic Code(s): D80.1 - Nonfamilial hypogammaglobulinemia (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 Code(s): D80.3 - Selective deficiency of immunoglobulin G [IgG] subclasses (14) Lymphedema of lower extremity Status: Chronic Qualifiers: Laterality: bilateral Code(s): I89.0 - Lymphedema, not elsewhere classified (15) Obstructive sleep apnea Status: Chronic Code(s): G47.33 - Obstructive sleep apnea (adult) (pediatric) (16) Osteoarthritis Status: Chronic Code(s): M19.90 - Unspecified osteoarthritis, unspecified site (17) Osteoporosis Status: Chronic Code(s): M81.0 - Age-related osteoporosis without current pathological fracture (18) Personal history of skin cancer Status: Chronic Code(s): Z85.828 - Personal history of other malignant neoplasm of skin (19) Pulmonary hypertension Status: Chronic Code(s): I27.2 - Other secondary pulmonary hypertension (20) Skin ulcer of lower leg with fat layer exposed Status: Chronic Qualifiers: Laterality: unspecified laterality Qualified Code(s): L97.902 - Non-pressure chronic ulcer of unspecified part of unspecified lower leg with fat layer exposed Code(s): L97.902 - Non-pressure chronic ulcer of unspecified part of unspecified lower leg with fat layer exposed (21) Leg swelling Status: Chronic Code(s): M79.89 - Other specified soft tissue disorders (22) Leg edema Status: Chronic Code(s): R60.0 - Localized edema (23) Hypothyroidism Status: Chronic Code(s): E03.9 - Hypothyroidism, unspecified (24) Chronic venous insufficiency Status: Chronic Code(s): I87.2 - Venous insufficiency (chronic) (peripheral) History of Present Illness Date of Service: 04/17/20 Chief Complaint: Severe swelling, edema, and lymphedema of both lower extremities, with an ulceration of the left anterior tibial surface History of Wound: This is a 64-year-old female with a history of chronic swelling, edema, and lymphedema in her lower extremities. She claims to have developed severe swelling, edema, and lymphedema in her lower extremities in September 2015. At that time, she was treated aggressively by conservative measures, which included pool therapy. Patient indicates that the swelling, edema, and lymphedema subsequently resolved. Since October 2019, however, the swelling, edema, and lymphedema in the patient's lower extremities has recurred. It has persisted since its most recent onset, and has been associated with the development of a small ulceration on the left anterior tibial surface since January 2020. The patient is morbidly obese. She sleeps in a recliner. She is not active, ambulating only in limited fashion using a cane. She sits idlly throughout the day. Patient suffers from multiple pre-existing medical problems, as detailed below. Many of these problems are, in part, indirectly related to the patient's lower extremity swelling and edema. A culture of the patient's left leg wound was performed by her primary care physician, Dr. Julian Brand, on 03/20/2020. The results were positive for Sphingomonas paucimobilis, Corynebacterium minutissimum, and Turicella otitidis. The patient had originally been placed on Cipro, but when culture and sensitivity results were known, Cipro was found to be inadequate, and the patient has been switched by her primary care physician to Bactrim double strength. Past Medical History Past Medical History: Chronic Problems (Last Reviewed 02/16/20 @ 13:27 by Sarah WILDER, PA) Nonhealing nonsurgical wound with fat layer exposed (Chronic) A-fib (Chronic) Compression fracture of lumbar vertebra (Chronic) History of pulmonary embolism (Chronic) Morbid obesity with BMI of 40.0-44.9, adult (Chronic) Leg swelling (Chronic) Leg edema (Chronic) Hypothyroidism (Chronic) Chronic venous insufficiency (Chronic) Lymphedema of lower extremity (Chronic) Skin ulcer of lower leg with fat layer exposed (Chronic) Infected skin ulcer with fat layer exposed (Chronic) Personal history of skin cancer (Chronic) Neoplasm of unspecified behavior of bone, soft tissue, and skin (Chronic) 3 cm lesion anterior frontal scalp Hypogammaglobulinemia (Chronic) IgG subclass deficiency (Chronic) Compression fracture of L1 lumbar vertebra (Chronic) Compression fracture of L2 (Chronic) Compression fracture of L3 lumbar vertebra (Chronic) Osteoporosis (Chronic) Chronic steroid use (Chronic) Degenerative disc disease (Chronic) Constipation (Chronic) Osteoarthritis (Chronic) Pulmonary hypertension (Chronic) Obstructive sleep apnea (Chronic) Constipation due to opioid therapy (Chronic) L3 pathological fracture (Chronic) Lumbosacral spondylosis (Chronic) DDD (degenerative disc disease), lumbosacral (Chronic) Chronic back pain (Chronic) COPD (chronic obstructive pulmonary disease) (Chronic) Hypertension (Chronic) Crohns disease (Chronic) Surgical History: hysterectomy, total knee arthroplasty - Left, - - Multiple small bowel resections, L3 kyphoplasty, right lower extremity surgery, TNA, port placement, left pneumonectomy. The patient is a Ab0. Allergies/Adverse Reactions: Allergies codeine Allergy (Severe, Verified 02/15/20 14:07) ANGIOEDEMA/LEG SWELLING Penicillins Allergy (Severe, Verified 02/15/20 14:07) ANGIOEDEMA/LEG SWELLING Sulfa (Sulfonamide Antibiotics) Allergy (Severe, Verified 02/15/20 14:07) ANGIOEDEMA/LEG SWELLING sulfasalazine [From Azulfidine] Allergy (Severe, Verified 02/15/20 14:07) ANGIOEDEMA/LEG SWELLING Home Medications: Ambulatory Orders Medication Instructions Recorded Erythromycin Ophthalmic 1 applic OPHTHALMIC QHS 06/20/14 Budesonide/Formoterol 160/4.5 2 puff INHALATION BID 04/25/16 [Symbicort 160/4.5 Mcg Inhaler (SP)] Diphenoxylate/Atrop [Lomotil] 1 tab PO Q4H PRN PRN 10/29/16 Sildenafil Citrate 20 mg PO TID 08/10/17 Morphine [Morphine IR] 15 mg PO TID 10/05/18 Montelukast [Singulair] 10 mg PO DAILY 02/03/20 predniSONE tablet 40 mg PO DAILY@0800 tab 02/07/20 pantoprazole 40 mg tablet,delayed 40 mg PO DAILY 02/15/20 release potassium chloride 20 mEq meq PO 02/15/20 tablet,extended release(part/cryst) rivaroxaban 20 mg tablet 20 mg PO DAILY tab 02/15/20 amiodarone 200 mg tablet 200 mg PO DAILY #90 tab 02/23/20 digoxin 125 mcg (0.125 mg) tablet 125 mcg PO DAILY #90 tab 02/23/20 Levofloxacin [Levaquin] 750 mg PO DAILY 03/21/20 Rivaroxaban [Xarelto] 20 mg PO DAILY 03/21/20 Bumetanide [Bumex] 2 mg PO BID 03/27/20 - Family History Maternal Family History: Family History (Last Reviewed 02/16/20 @ 13:27 by Sarah WILDER, PA) Father Anemia Heart disease Hypertension CVA (cerebral vascular accident) Mother Arthritis Cancer Osteoporosis Sister Arthritis Lung disease No pertinent history Paternal Family History: Family History (Last Reviewed 02/16/20 @ 13:27 by Sarah WILDER, PA) Father Anemia Heart disease Hypertension CVA (cerebral vascular accident) Mother Arthritis Cancer Osteoporosis Sister Arthritis Lung disease No pertinent history Lives: Alone Smoking Status: Former smoker Tobacco Use: Non-smoker Alcohol: None Drugs: None Review of Systems Constitutional: Denies: Chills, Fever, Weight Change Eyes: Denies: Pain, Vision Change HEENT: Denies: Difficulty Hearing, Difficulty Swallowing, Sinus Congestion Cardiovascular: Denies: Chest Pain, Palpitations Respiratory: Denies: Cough, Shortness of Breath Gastrointestinal: Denies: Diarrhea, Nausea, Vomiting Genitourinary: Denies: Dysuria, Hematuria Endocrine: Denies: Heat/ Cold Intolerance, Polydipsia, Polyuria Hematologic/ Lymphatic: Denies: Easy Bruising, Easy Bleeding - Physical Exam Vital Signs Temp Pulse Resp BP 96.8 F L 108 H 16 152/84 H 04/17/20 10:19 04/13/20 12:23 04/17/20 10:19 04/13/20 12:23 General: Alert, Oriented x3, Cooperative, No apparent distress, Well developed, Well nourished, - - The patient is morbidly obese. HEENT: Atraumatic, PERRLA, EOMI, Normocephalic Oral: Moist Mucosa Neck: No JVD Lungs: Normal air movement Abdomen: Non-Distended Extremities: No clubbing, No cyanosis, No Calf Tenderness, - - Severe bilateral lower extremity swelling, edema, and lymphedema are noted. Addt'l Wound Findings: The ulceration on the left pretibial area is healed. It appears to be completely epithelialized. The ulceration on the right pretibial area persists, though appears to be slightly smaller in size. There is evidence of peripheral epithelialization. There is no sign of infection or cellulitis. There is a small amount of bioburden. Dimensions are documented elsewhere. Skin: No rashes Wound Measurements and Assessment WC - Nurse 1 - General Ulcer Measurement Start: 03/27/20 12:39 Freq: Status: Active Protocol: Activity Type Activity Date Activity User E-Sign Co-Sign Detail Recorded Client Recorded Date Recorded By Document 04/17/20 10:19 MARILYN [id number] 04/17/20 10:31 MARILYN 04/17/20 10:19 Wound Center Nurse 1 [Ulcer Assessment] #4- R MED LE -Combined with other wound No -Current Size (cm) - Length 0.1 -Current Size (cm) - Width 0.1 -Current Size (cm) - Depth 0.1 -Total Square Cm 0.01 -Photo Taken No -Epithelialization Large 67-100% -Tunneling No -Undermining/Tunneling No -Circular Undermining No -Exudate Amt None Present -Wound Margin Flat & Intact -Granulation Amt None Present (0 %) -Slough/Fibrin Yes -Necrosis Amt Large (67-100%) -Necrotic Tissue Type Adherent Slough -Structure Exposed N/A -Texture (Cecilia-wound Skin Appearance) Assessed, Localized Edema -Moisture (Cecilia-wound Skin Appearance Assessed,Dry/ ) Scaly -Color (Cecilia-wound Skin Appearance) Assessed, Ecchymosis, Hemosiderin Staining -Temperature (Cecilia-wound Skin No Abnormality Appearance) (Pt Warm) -Tenderness on Palpation (Cecilia-wound No Skin Appearance) -Ulcer Cleansing Wound Cleanser -Foul Odor after Cleansing No -Anesthetic Used 5% Lidocaine Gel 3. LLE anterior -Combined with other wound No -Current Size (cm) - Length 0.1 -Current Size (cm) - Width 0.1 -Current Size (cm) - Depth 0.1 -Total Square Cm 0.01 -Photo Taken No -Epithelialization Small 1-33% -Tunneling No -Undermining/Tunneling No -Circular Undermining No -Exudate Amt None Present -Wound Margin Indistinct, Non -Visible -Granulation Amt None Present (0 %) -Slough/Fibrin Yes -Necrosis Amt Large (67-100%) -Necrotic Tissue Type Adherent Slough -Structure Exposed N/A -Texture (Cecilia-wound Skin Appearance) Assessed, Localized Edema -Moisture (Cecilia-wound Skin Appearance Assessed,Dry/ ) Scaly -Color (Cecilia-wound Skin Appearance) Assessed, Ecchymosis -Temperature (Cecilia-wound Skin No Abnormality Appearance) (Pt Warm) -Tenderness on Palpation (Cecilia-wound No Skin Appearance) -Ulcer Cleansing Wound Cleanser -Foul Odor after Cleansing No -Anesthetic Used 4% Lidocaine Solution [Edema Assessment] -Lower Limb Edema Present Yes -Right Calf (cm) 58.4 -Right Ankle (cm) 32.7 -Left Calf (cm) 47.5 -Left Ankle (cm) 31.8 Neurological: Cranial nerves II-XII grossly intact, Neuro grossly intact Psych/Mental Status: Normal Affect, Appropriate, Alert and oriented to time, place, person, mood and affect Debridement Note Post-Debridement Measurements/Treatment WC - Nurse 2 - General Ulcer CM Notes Start: 03/27/20 12:39 Freq: Status: Active Protocol: Activity Type Activity Date Activity User E-Sign Co-Sign Detail Recorded Client Recorded Date Recorded By Document 03/27/20 16:28 PL [id number] 03/27/20 16:31 PL Document 04/03/20 18:20 PL [id number] 04/03/20 18:22 PL Document 04/10/20 12:38 PL [id number] 04/10/20 12:41 PL 03/27/20 04/03/20 04/10/20 16:28 18:20 12:38 Wound Center Nurse 2 #4- R MED LE -Time 12:40 11:28 -Correct Patient Yes Yes -Correct Side, Site, Position Yes Yes -Correct Procedure Yes Yes -Procedure Performed Yes Yes -Type of Procedure Debridement Debridement -Clinical Debridement Subcutaneous Subcutaneous -Tissue Removed Subcutaneous Subcutaneous -Post Debridement (cm) - Length 0.5 0.2 -Post Debridement (cm) - Width 2.1 0.4 -Post Debridement (cm) - Depth 0.1 0.2 -Total Square (Post) (cm) 1.05 0.08 -Area of Debridement (cm) - Length 0.5 0.2 -Area of Debridement (cm) - Width 2.1 0.4 -Total Square (Area) (cm) 1.05 0.08 -Tunneling No No -Undermining/Tunneling No No -Circular Undermining No No -Wound/Ulcer Outcome Not Healed Not Healed -Ulcer Cleansing Rinsed/ Rinsed/ Irrigated with Irrigated with Saline Saline -Foul Odor after Cleansing No No -Bioengineered Tissue No No -Bleeding Controlled with Pressure -Treatment Response Procedure Tolerated Well -Debridement - Subq, 1st 20sq cm No Yes 3. LLE anterior -Time 13:19 12:40 11:28 -Correct Patient Yes Yes Yes -Correct Side, Site, Position Yes Yes Yes -Correct Procedure Yes Yes Yes -Procedure Performed Yes Yes Yes -Type of Procedure Debridement Debridement Debridement -Clinical Debridement Subcutaneous Subcutaneous Subcutaneous -Tissue Removed Subcutaneous Subcutaneous Subcutaneous -Post Debridement (cm) - Length 0.5 0.4 0.2 -Post Debridement (cm) - Width 0.9 0.8 0.4 -Post Debridement (cm) - Depth 0.2 0.1 0.2 -Total Square (Post) (cm) 0.45 0.32 0.08 -Area of Debridement (cm) - Length 0.5 0.4 0.2 -Area of Debridement (cm) - Width 0.9 0.8 0.4 -Total Square (Area) (cm) 0.45 0.32 0.08 -Tunneling No No No -Undermining/Tunneling No No No -Circular Undermining No No No -Wound/Ulcer Outcome Not Healed Not Healed Not Healed -Ulcer Cleansing Rinsed/ Rinsed/ Rinsed/ Irrigated with Irrigated with Irrigated with Saline Saline Saline -Foul Odor after Cleansing No No No -Bioengineered Tissue No No No -Bleeding Controlled with Pressure -Treatment Response Procedure Tolerated Well -Debridement - Subq, 1st 20sq cm Yes Yes No Pain Scale: 0-10 Numeric Is Patient Pain Free? Yes Yes Yes WC - Nurse 3 - General Ulcer D/C NN Start: 03/27/20 12:39 Freq: Status: Active Protocol: Activity Type Activity Date Activity User E-Sign Co-Sign Detail Recorded Client Recorded Date Recorded By Document 03/27/20 13:39 [facility] [id number] 03/27/20 13:40 [facility] Document 04/03/20 13:05 BM [id number] 04/03/20 13:06 [facility] Document 04/06/20 13:51 RB [id number] 04/06/20 13:56 RB Document 04/10/20 12:02 KR [id number] 04/10/20 12:05 KR Document 04/13/20 12:23 [facility] [id number] 04/13/20 12:34 [facility] 03/27/20 04/03/20 04/06/20 13:39 13:05 13:51 Wound Care Nurse 3 #4- R MED LE -Ulcer Cleansing Rinsed/ Irrigated with Saline -Foul Odor after Cleansing No -Primary Dressing Applied Other -Other Dressing UNNA BOOT -Primary Dressing Covered/Secured with -Other Covering -Promogran 3. LLE anterior -Ulcer Cleansing Rinsed/ Rinsed/ Irrigated with Irrigated with Saline Saline -Foul Odor after Cleansing No No -Primary Dressing Applied Fibracol Plus Other 4x4 -Other Dressing UNNA BOOT -Primary Dressing Covered/Secured with Secured with Tape,Other -Other Covering abd -Fibracol Plus 4x4 1 -Promogran bi lateral -Multi-Layered Wrap Application -Unna Boots (Bilat) ($) Right -Multi-Layered Wrap Application Unna Boot - Unna Boot - Bilateral ($) Bilateral ($) -Unna Boots (Bilat) ($) 2 2 Left -Tubular Bandage Single Layer -Size of Tubigrip Used Size F -Size F ($) 1 -Other unna bilat Treatment Response Procedure Procedure Tolerated Well Tolerated Well Vital Signs Temperature (97.8 F-99.1 F) 97.6 F L Temperature Source Temporal Pulse Rate (60-100) 110 H Pulse Location Monitor Respiratory Rate (12-18) 18 Respiratory rate source Observation Oxygen Delivery Method Blood Pressure (90/60-120/80) 155/100 H Blood Pressure Mean (mm Hg) 118 Source Monitor Position Semi-Fowlers Blood Pressure Location Left Arm Pain Scale: 0-10 Numeric Is Patient Pain Free? Yes Yes Yes WC - Visit Discharge Discharge Condition Stable Stable Stable Ambulatory Status Ambulatory,Cane Ambulatory,Cane Ambulatory,Cane Transportation Private Auto Private Auto Medication Reconcilliation completed & No provided to patient/care provider Clinical Summary of Care Provided Yes 04/10/20 04/13/20 12:02 12:23 Wound Care Nurse 3 #4- R MED LE -Ulcer Cleansing Rinsed/ SOAPY WATER Irrigated with Saline -Foul Odor after Cleansing No No -Primary Dressing Applied Promogran Promogran -Other Dressing DRSG BY Kate ORTIZ RN -Primary Dressing Covered/Secured with Dry Gauze & Other Roll Gauze -Other Covering UNNA BOOT -Promogran 1 1 3. LLE anterior -Ulcer Cleansing SOAPY WATER -Foul Odor after Cleansing No -Primary Dressing Applied Promogran,Other -Other Dressing UNNA BOOT -Primary Dressing Covered/Secured with -Other Covering DRSG BY Kate ORTIZ RN -Fibracol Plus 4x4 -Promogran 0 bi lateral -Multi-Layered Wrap Application Unna Boot - Unna Boot - Bilateral ($) Bilateral ($) -Unna Boots (Bilat) ($) 2 1 Right -Multi-Layered Wrap Application -Unna Boots (Bilat) ($) Left -Tubular Bandage -Size of Tubigrip Used -Size F ($) -Other Treatment Response Procedure Tolerated Well Vital Signs Temperature (97.8 F-99.1 F) 97.6 F L Temperature Source Temporal Pulse Rate (60-100) 108 H Pulse Location Monitor Respiratory Rate (12-18) 18 Respiratory rate source Observation Oxygen Delivery Method Room Air Blood Pressure (90/60-120/80) 152/84 H Blood Pressure Mean (mm Hg) 106 Source Monitor Position Sitting Blood Pressure Location Left Arm Pain Scale: 0-10 Numeric Is Patient Pain Free? Yes WC - Visit Discharge Discharge Condition Stable Stable Ambulatory Status Cane Ambulatory,Cane Transportation Private Auto Medication Reconcilliation completed & provided to patient/care provider Clinical Summary of Care Provided Laterality: Right - Pretibial area Type of Debridement: Excisional debridement Anesthesia Used: 5% Lidocaine Gel Depth: Down to and including healthy tissue, in the subcutaneous layer Percentage of wound debrided: 100 Instrument Used: 5mm curette Tissue Removed: Bioburden Severity: Fat Layer Exposed Amount of bleeding with debridement: Mild Bleeding Controlled with: Compression and gauze Patient tolerated procedure well Assessment/Plan Active Problems (Last Reviewed 02/16/20 @ 13:27 by Sarah WILDER, PA) Nonhealing nonsurgical wound with fat layer exposed (Chronic) A-fib (Chronic) Compression fracture of lumbar vertebra (Chronic) History of pulmonary embolism (Chronic) Morbid obesity with BMI of 40.0-44.9, adult (Chronic) Leg swelling (Chronic) Leg edema (Chronic) Hypothyroidism (Chronic) Chronic venous insufficiency (Chronic) Lymphedema of lower extremity (Chronic) Skin ulcer of lower leg with fat layer exposed (Chronic) Personal history of skin cancer (Chronic) Hypogammaglobulinemia (Chronic) IgG subclass deficiency (Chronic) Osteoporosis (Chronic) Chronic steroid use (Chronic) Osteoarthritis (Chronic) Pulmonary hypertension (Chronic) Obstructive sleep apnea (Chronic) DDD (degenerative disc disease), lumbosacral (Chronic) Chronic back pain (Chronic) COPD (chronic obstructive pulmonary disease) (Chronic) Hypertension (Chronic) Crohns disease (Chronic) Assessment: This is a 64-year-old morbidly obese female with multiple pre-existing medical conditions, as listed above. She presented with severe swelling, edema, and lymphedema in her lower extremities, which has been chronic in nature for the last several years, but had been reasonably well controlled until October 2019. Patient sleeps in a recliner, sits for long periods each day, is relatively inactive, and is morbidly obese. It appears as though her daily habits are a major contributing factor to the swelling, edema, and lymphedema in her lower extremities. She has undergone recent laboratory studies, the results of which are as follows: White blood count 11.1, hemoglobin 12.5, hematocrit 41.4, platelets 348,000, sodium 137, potassium 4.2 chloride 99, BUN 32, creatinine 1.06, glucose 121, calcium 9.1, total bilirubin 1.90, AST 15, ALT 24, alkaline phosphatase 59, total protein 6.2, albumin 3.2. Plan: A lengthy discussion has been undertaken with the patient with regard to her daily habits. Leg elevation has been recommended. She has been advised to sleep with her legs level with her heart, or higher. Leg elevation has also been recommended during daytime hours as well. Prolonged idle sitting has been discouraged. Activity has been encouraged. Weight loss has also been encouraged. A noninvasive lower extremity arterial study has been completed, showing no evidence of significant arterial occlusive disease in the lower extremities bilaterally. The ulceration in the left pretibial area appears to be completely healed. The ulceration on the right pretibial area persists, though slightly smaller. We are to continue the use of Promogran topically to the ulceration on the right lower extremity. We will transition to the use of 3M 2 layer compression wraps bilaterally, which will be changed twice weekly. Promogran will be changed twice weekly as well. Nutritional optimization has been recommended. We await the receipt of mechanical pneumatic compression pumps for the patient's lower extremities. These are anticipated any day. However, compression pumps have not yet been received, and our staff will re-engage to ascertain the reason for any delays. The degree of swelling, edema, and lymphedema appears to warrant such pneumatic compression pumps, as an adjunct to the use of compression, elevation, activity, etc. It is likely that we will ultimately refer the patient to the Lymphedema Clinic once her lower extremity ulcerations are healed. The patient is to return in 1 week for reassessment. Influenza vaccine was not administered today. The patient is not a smoker. She weighs 265 pounds. She stands 5 feet 5 inches tall. Her BMI is 44.1, which places her in a class III obesity category. Weight loss has been recommended, in collaboration with her primary care physician in this regard has been advised. The patient has been able to lose significant amounts of weight voluntarily in the past.
[2020-04-20 12:13] VITALS: BP 151/85; PULSE 98; RESP 22; TEMP 36.2; BMI 45.1
== END 2020-04-23 23:59 ==
LOC: WC 12:00
PROVIDERS: PCP Family Medicine Geriatric Medicine; Referring Provider Nurse Practitioner; Visit Provider Nurse Practitioner
DX: L97.822 Non-pressure chronic ulcer of other part of left lower leg with fat layer exposed (principal); E66.01 Morbid (severe) obesity due to excess calories; Z68.41 Body mass index [BMI] 40.0-44.9, adult; Z86.711 Personal history of pulmonary embolism; I48.20 Chronic atrial fibrillation, unspecified; K50.90 Crohn's disease, unspecified, without complications; J44.9 Chronic obstructive pulmonary disease, unspecified; I10 Essential (primary) hypertension; G47.33 Obstructive sleep apnea (adult) (pediatric); I27.20 Pulmonary hypertension, unspecified; M19.90 Unspecified osteoarthritis, unspecified site; Z85.828 Personal history of other malignant neoplasm of skin; R60.0 Localized edema; I89.0 Lymphedema, not elsewhere classified; M79.89 Other specified soft tissue disorders; M51.37 Other intervertebral disc degeneration, lumbosacral region; D80.3 Selective deficiency of immunoglobulin G [IgG] subclasses; E03.9 Hypothyroidism, unspecified; M81.0 Age-related osteoporosis without current pathological fracture; Z79.51 Long term (current) use of inhaled steroids; Z79.899 Other long term (current) drug therapy; Z79.52 Long term (current) use of systemic steroids; T14.8XXA Other injury of unspecified body region, initial encounter; G89.29 Other chronic pain; I87.2 Venous insufficiency (chronic) (peripheral); I83.93 Asymptomatic varicose veins of bilateral lower extremities; L81.9 Disorder of pigmentation, unspecified; L97.812 Non-pressure chronic ulcer of other part of right lower leg with fat layer exposed
CPT/HCPCS: 11042; 29580; 29581; 93923

== ENCOUNTER 2020-05-04 09:15 | Outpatient (RCR) | payer MEDICARE, OTHER, SELFPAY ==
[2020-04-24 00:22] VITALS: BP 151/85; PULSE 98; RESP 22; TEMP 36.2
[2020-05-04 09:44] VITALS: BP 162/90; PULSE 109; RESP 24; TEMP 36.7; BMI 45.1
--- NOTE | 2020-05-04 13:02 | PCM.WC.PN ---
(1) Skin ulcer of lower leg with fat layer exposed Status: Resolved Qualifiers: Code(s): L97.902 - Non-pressure chronic ulcer of unspecified part of unspecified lower leg with fat layer exposed (2) Nonhealing nonsurgical wound with fat layer exposed Status: Resolved Code(s): T14.8XXA - Other injury of unspecified body region, initial encounter (3) Lymphedema of lower extremity Status: Chronic Qualifiers: Code(s): I89.0 - Lymphedema, not elsewhere classified (4) Leg edema Status: Chronic Code(s): R60.0 - Localized edema (5) Chronic venous insufficiency Status: Chronic Code(s): I87.2 - Venous insufficiency (chronic) (peripheral) (6) A-fib Status: Chronic Code(s): I48.91 - Unspecified atrial fibrillation (7) Chronic steroid use Status: Chronic Code(s): VTV4445 - (8) COPD (chronic obstructive pulmonary disease) Status: Chronic Qualifiers: Code(s): J44.9 - Chronic obstructive pulmonary disease, unspecified (9) Hypertension Status: Chronic Qualifiers: Code(s): I10 - Essential (primary) hypertension Type of Wound Date of Service: 05/04/20 Chief Complaint: Severe swelling, edema, and lymphedema of both lower extremities, with an ulceration of the left anterior tibial surface History of Wound: This is a 64-year-old female with a history of chronic swelling, edema, and lymphedema in her lower extremities. She claims to have developed severe swelling, edema, and lymphedema in her lower extremities in September 2015. At that time, she was treated aggressively by conservative measures, which included pool therapy. Patient indicates that the swelling, edema, and lymphedema subsequently resolved. Since October 2019, however, the swelling, edema, and lymphedema in the patient's lower extremities has recurred. It has persisted since its most recent onset, and has been associated with the development of a small ulceration on the left anterior tibial surface since January 2020. The patient is morbidly obese. She sleeps in a recliner. She is not active, ambulating only in limited fashion using a cane. She sits idlly throughout the day. Patient suffers from multiple pre-existing medical problems, as detailed below. Many of these problems are, in part, indirectly related to the patient's lower extremity swelling and edema. A culture of the patient's left leg wound was performed by her primary care physician, Dr. Julian Brand, on 03/20/2020. The results were positive for Sphingomonas paucimobilis, Corynebacterium minutissimum, and Turicella otitidis. The patient had originally been placed on Cipro, but when culture and sensitivity results were known, Cipro was found to be inadequate, and the patient has been switched by her primary care physician to Bactrim double strength. Progress of Wound: Patient's lower extremity ulcers have healed. She continues to have 4+ pitting edema of bilateral lower extremities, as well as bilateral lower extremity lymphedema. She reports she has not yet taken her diuretics today, as she is unable to take these when she is traveling outside of the home due to urinary frequency. Lymphedema pumps have been ordered, but have not yet been received. She is able to apply Hiram wraps to her legs for compression, but is unable to don compression hose independently. - Physical Exam Vital Signs Temp Pulse Resp BP 98.1 F 109 H 24 H 162/90 H 05/04/20 09:44 05/04/20 09:44 05/04/20 09:44 05/04/20 09:44 General: Alert, Cooperative, No apparent distress HEENT: Atraumatic, Normocephalic Oral: Moist Mucosa Neck: Supple, Trachea Midline Lungs: Normal air movement Abdomen: Obese Extremities: No clubbing, No cyanosis, Capillary Refill Less than 3 Seconds, Diminished Peripheral Pulses, Edema - 4+ pitting edema bilateral lower extremities Skin: No rashes, No breakdown, Ulcer/ Wound - Ulcers of bilateral lower extremities are healed. Wound Measurements and Assessment WC - Nurse 1 - General Ulcer Measurement Start: 05/04/20 09:44 Freq: Status: Discharge Protocol: Activity Type Activity Date Activity User E-Sign Co-Sign Detail Recorded Client Recorded Date Recorded By Document 05/04/20 09:44 DL [id number] 05/04/20 09:52 DL Edit Status 05/04/20 10:41 BKG DAEMON Active=>Discharge [id number] 05/04/20 10:41 BKG DAEMON 05/04/20 09:44 Wound Center Nurse 1 [Ulcer Assessment] #4- R MED LE -Current Size (cm) - Length 0 -Current Size (cm) - Width 0 -Current Size (cm) - Depth 0 -Total Square Cm 0 -Photo Taken Yes -Exudate Amt None Present -Wound Margin Flat & Intact -Granulation Amt Large (67-100%) -Granulation Quality Magna -Necrosis Amt None Present (0 %) -Structure Exposed N/A -Texture (Cecilia-wound Skin Appearance) Scarring -Moisture (Cecilia-wound Skin Appearance Dry/Scaly ) -Color (Cecilia-wound Skin Appearance) Hemosiderin Staining -Temperature (Cecilia-wound Skin No Abnormality Appearance) (Pt Warm) -Tenderness on Palpation (Cecilia-wound No Skin Appearance) -Ulcer Cleansing Rinsed/ Irrigated with Saline -Foul Odor after Cleansing No -Anesthetic Used 4% Lidocaine Solution 3. LLE anterior -Current Size (cm) - Length 0 -Current Size (cm) - Width 0 -Current Size (cm) - Depth 0 -Total Square Cm 0 -Photo Taken Yes -Exudate Amt None Present -Wound Margin Flat & Intact -Granulation Amt Small (1-33%) -Granulation Quality Magna -Necrosis Amt None Present (0 %) -Structure Exposed N/A -Texture (Cecilia-wound Skin Appearance) Scarring -Moisture (Cecilia-wound Skin Appearance No Abnormality ) -Color (Cecilia-wound Skin Appearance) Hemosiderin Staining - Nurse 2 - General Ulcer CM Notes Start: 05/04/20 09:44 Freq: Status: Discharge Protocol: Activity Type Activity Date Activity User E-Sign Co-Sign Detail Recorded Client Recorded Date Recorded By Edit Status 05/04/20 10:41 MARY DEE Active=>Discharge [place] [id number] 05/04/20 10:41 MARY DEE - Nurse 3 - General Ulcer D/C NN Start: 05/04/20 09:44 Freq: Status: Discharge Protocol: Activity Type Activity Date Activity User E-Sign Co-Sign Detail Recorded Client Recorded Date Recorded By Edit Status 05/04/20 10:41 MARY DEE Active=>Discharge [facility] 05/04/20 10:41 MARY DEE Psych/Mental Status: Normal Affect, Appropriate Debridement Note No debridement was completed today Assessment/Plan Active Problems (Last Reviewed 02/16/20 @ 13:27 by Sarah De La Fuente PA, PA) A-fib (Chronic) Leg edema (Chronic) Chronic venous insufficiency (Chronic) Lymphedema of lower extremity (Chronic) Chronic steroid use (Chronic) COPD (chronic obstructive pulmonary disease) (Chronic) Hypertension (Chronic) Assessment: This is a 64-year-old morbidly obese female with multiple pre-existing medical conditions, as listed above. She presented with severe swelling, edema, and lymphedema in her lower extremities, which has been chronic in nature for the last several years, but had been reasonably well controlled until October 2019. Patient sleeps in a recliner, sits for long periods each day, is relatively inactive, and is morbidly obese. It appears as though her daily habits are a major contributing factor to the swelling, edema, and lymphedema in her lower extremities. She has undergone recent laboratory studies, the results of which are as follows: White blood count 11.1, hemoglobin 12.5, hematocrit 41.4, platelets 348,000, sodium 137, potassium 4.2 chloride 99, BUN 32, creatinine 1.06, glucose 121, calcium 9.1, total bilirubin 1.90, AST 15, ALT 24, alkaline phosphatase 59, total protein 6.2, albumin 3.2. Plan: A lengthy discussion has been undertaken with the patient with regard to her daily habits. Leg elevation has been recommended. She has been advised to sleep with her legs level with her heart, or higher. Leg elevation has also been recommended during daytime hours as well. Prolonged idle sitting or standing has been discouraged. Activity has been encouraged. Weight loss has also been encouraged. A noninvasive lower extremity arterial study has been completed, showing no evidence of significant arterial occlusive disease in the lower extremities bilaterally. The ulcerations of her bilateral lower extremities are healed. SurePress will be applied to bilateral lower extremities for compression. Patient was instructed to continue the use of SurePress daily for compression. Nutritional optimization has been recommended. We await the receipt of mechanical pneumatic compression pumps for the patient's lower extremities. The degree of swelling, edema, and lymphedema appears to warrant such pneumatic compression pumps, as an adjunct to the use of compression, elevation, activity, etc. The patient has been referred to the lymphedema clinic for evaluation and treatment. The patient is instructed to follow-up on an as-needed basis should new wounds develop. Influenza vaccine was not administered today. The patient is not a smoker. She weighs 271 pounds. She stands 5 feet 5 inches tall. Her BMI is 45.1, which places her in a class III obesity category. Weight loss has been recommended, in collaboration with her primary care physician in this regard has been advised. The patient has been able to lose significant amounts of weight voluntarily in the past. Note: [employer] speech recognition cco [employer] president software was used to create portions of this document. Sound-alike and misspelled words, as well as other cco & president errors may be contained in the documentation. Office Visits / Consults: [id number] OV L3 Est
== END 2020-05-04 10:41 | disposition home or self-care (01) ==
LOC: WC 09:15
PROVIDERS: PCP Family Medicine Geriatric Medicine; Referring Provider Nurse Practitioner; Visit Provider Nurse Practitioner
DX: Z09 Encounter for follow-up examination after completed treatment for conditions other than malignant neoplasm (principal); E66.01 Morbid (severe) obesity due to excess calories; Z68.42 Body mass index [BMI] 45.0-49.9, adult; I48.20 Chronic atrial fibrillation, unspecified; I87.2 Venous insufficiency (chronic) (peripheral); I89.0 Lymphedema, not elsewhere classified; J44.9 Chronic obstructive pulmonary disease, unspecified; I10 Essential (primary) hypertension; M79.89 Other specified soft tissue disorders; R60.0 Localized edema
CPT/HCPCS: 99212; G0463

== ENCOUNTER 2020-06-16 10:43 | Emergency (ER) | payer MEDICARE, OTHER, SELFPAY ==
[2020-05-29 11:34] VITALS: BMI 48.2
[2020-06-16 10:44] VITALS: BP 162/82; PULSE 82; RESP 17; TEMP 37.3; O2SAT 97; BMI 44.9
--- NOTE | 2020-06-16 11:07 | ED.VIS.GEN ---
History of Present Illness Chief Complaint: Edema Informant: Patient Onset: Days Context: Gradual Onset Timing: Continuous Narrative: Patient is a 64-year-old female with history of atrial fibrillation, on Xarelto, IBS entheses currently on prednisone), as well as chronic lymphedema presenting with worsening swelling of her lower extremities as well as drainage from her right lower extremity. Patient states has been going on for the past 3 to 4 days. She states she has drainage and bleeding from her right lower extremity. She feels that there is some more redness of her right lower leg and increased pain which is a sign of infection. She has an appointment to see wound care in a week but did not want a wait that long. She wants to be evaluated for concern of infection and would also like wound culture to be obtained today. She denies any fever, chills, myalgias, SOB or chest pain. Patient states her chronic wounds have been healed for the past month prior to the last few days when they reopen. She follows with Dr. Sinha, vascular surgery. She states she is been compliant with her medications and trying to wrap her legs. Past Medical History - Allergies and Home Meds Allergies/Adverse Reactions: Allergies codeine Allergy (Severe, Verified 06/16/20 10:44) ANGIOEDEMA/LEG SWELLING Penicillins Allergy (Severe, Verified 06/16/20 10:44) ANGIOEDEMA/LEG SWELLING Sulfa (Sulfonamide Antibiotics) Allergy (Severe, Verified 06/16/20 10:44) ANGIOEDEMA/LEG SWELLING sulfasalazine [From Azulfidine] Allergy (Severe, Verified 06/16/20 10:44) ANGIOEDEMA/LEG SWELLING Primary Care Physician: Julian Brand Chi, MD [Primary Care Provider] - Past Medical History: - - IBD. a fib, lymphedema Surgical History: hysterectomy, total knee arthroplasty - Left, - - Multiple small bowel resections, L3 kyphoplasty, right lower extremity surgery, TNA, port placement, left pneumonectomy. The patient is a Ab0. Smoking Status: Former smoker - Family History Maternal Family History: Family History (Last Reviewed 05/29/20 @ 11:47 by Tiffanie Rodriguez) Father Anemia Heart disease Hypertension CVA (cerebral vascular accident) Mother Arthritis Cancer Osteoporosis Sister Arthritis Lung disease Family History: Reports: No pertinent history Paternal Family History: Family History (Last Reviewed 05/29/20 @ 11:47 by Tiffanie Rodriguez) Father Anemia Heart disease Hypertension CVA (cerebral vascular accident) Mother Arthritis Cancer Osteoporosis Sister Arthritis Lung disease Family History: Reports: No pertinent history Review of Systems General: Denies: Chills, Fever, Sweats Eyes: Denies: Visual changes - bilaterally, Diplopia ENT: Denies: Rhinorrhea, Sore throat Cardiovascular: Denies: Chest pain, Palpitations Respiratory: Denies: Dyspnea, Cough, Dyspnea on exertion Gastrointestinal: Denies: Abdominal pain, Nausea, Vomiting, Diarrhea, Melena, Hematochezia Genitourinary: Denies: Dysuria, Hematuria, Frequency Musculoskeletal: Reports: Swelling, Extremity Pain. Denies: Back pain Skin: Reports: Wounds - Right lower leg. Denies: Rash Neurological: Denies: Headache, Weakness, Numbness Physical Exam Vital Signs/Narrative: Vital Signs Temp Pulse Resp BP Pulse Ox 06/16/20 10:44 99.1 F 82 17 162/82 H 97 Inital Vital Signs reviewed: Yes General: Well nourished, Well developed, Obese, No Acute Distress Head: Normocephalic, Atraumatic Eyes: Perrl, EOMI ENT: Moist mucous membranes, No rhinorrhea Neck: Supple, Nontender Cardiovascular: Regular rate, Regular rhythm, No murmurs Respiratory: No distress, CTA bilaterally, Chest nontender Abdomen: Soft, Nontender, Nondistended, Normal bowel sounds Back: Nontender, Normal Inspection Extremities: Nontender, Edema - Significant pitting 4+ bilateral lymphedema with skin changes consistent with venous stasis Skin: Normal color, No rash, - - 1 cm linear skin tear right mid raymond with no current bleeding and drainage of serous fluid. Just below this is a couple millimeter skin tear that is also draining serous fluid. No surrounding erythema or significant induration Neurological: Alert, Oriented x3, Cranial nerves II-XII grossly intact, Normal Strength, Normal Sensation Psychological: Normal affect, Normal Mood Diagnostic/Tx/Re-eval Laboratory Data 06/16/20 06/16/20 11:15 11:15 WBC 9.8 RBC 3.81 L Hgb 11.1 L Hct 37.1 MCV 97.4 MCH 29.1 MCHC 29.9 L RDW Std Deviation 49.3 H RDW Coeff of Curtis 13.7 Plt Count 448 MPV 9.5 Immature Gran % (Auto) 0.700 Neut % (Auto) 86.0 H Lymph % (Auto) 8.0 L Motley % (Auto) 4.4 Eos % (Auto) 0.3 Baso % (Auto) 0.6 Absolute Neuts (auto) 8.4 H Absolute Lymphs (auto) 0.78 L Nucleated RBC % 0 Sodium 143 Potassium 3.9 Chloride 105 Carbon Dioxide 34.0 H Anion Gap 4 L BUN 17 Creatinine 0.85 Estim Creat Clear Calc 58.58 Est GFR (MDRD) Af Amer 86 Est GFR (MDRD) Non-Af 71 BUN/Creatinine Ratio 20.0 Glucose 106 Calcium 8.6 - Medical Decision Making Patient has worsening lymphedema of her lower extremities. She is not appear to have any respiratory or cardiovascular compromise. Her vital signs are normal. She does have significant lymphadenopathy with serous drainage. I do not see any physical exam findings consistent with an acute cellulitis however because of the patient's concerning history I will obtain a wound culture. Will not start antibiotics until cultures resulted. Patient will follow up with the wound care center. Her legs are rewrapped to help with lymphedema. She has diuretic to take at home which she will continue to. She is given return precautions as well as signs of infection. Patient is counseled on signs and symptoms requiring return to the emergency room. Patient verbalizes agreement and understand this plan. Patient discharged home in stable and improved condition. ED Disposition - Plan for ED Patient: Disposition: Home or Assisted Living Diagnosis: Lymphedema, Skin tear Instructions: ED Lymphedema Referrals: Julian Brand Chi, MD [Primary Care Provider] - Additional Instructions: At this time I do not suspect an acute infection and I do not think antibiotics are needed. We will wait on the culture results to determine if they will be needed. Your blood work is not consistent with infection.
[2020-06-16 11:26] LABS: Absolute Lymphocyte Count 0.78 X10^3/uL (0.83-4.51); Absolute Neutrophil Count 8.4 X10^3/uL (2.0-7.7); Basophil# 0.06 X10^3/uL; Basophil% 0.6 % (0-1); Eosinophil# 0.03 X10^3/uL; Eosinophils% 0.3 % (0-5); Hematocrit 37.1 % (37-47); Hemoglobin 11.1 g/dL (12.0-15.0); Lymphocyte # 0.78 X10^3/ul (4.0); Mean Corp Hgb Conc 29.9 g/dL (32-36); Mean Corpuscular Hgb 29.1 pg (27.0-32.0); Mean Corpuscular Volume 97.4 fL (81-99); Mean Platelet Vol. 9.5 fl (6.2-12.0); Monocyte# 0.43 X10^3/uL; Monocyte% 4.4 % (0-10); NRBC Flagged by Analyzer 0 % (0-5); Platelet Count 448 K/mm3 (150-450); RBC Distribution Width CV 13.7 % (11.6-14.6); RBC Distribution Width SD 49.3 fl (35.1-43.9); Red Blood Count 3.81 M/mm3 (4.2-5.4); White Blood Count 9.8 K/mm3 (4.4-11.0)
[2020-06-16 11:39] LABS: Anion Gap 4 (5-15); BUN 17 mg/dL (7-18); Calcium,Total 8.6 mg/dL (8.5-10.1); Chloride 105 mmol/L (98-107); Creatinine, Serum 0.85 mg/dL (0.55-1.02); EST Glomerular Filtration Rate 71 mL/min (>60); Est Glom Filt Rate - Afr Amer 86 mL/min (>60); Estimated Creatinine Clearance 58.58 ml/min; Glucose 106 mg/dL (74-106); Potassium 3.9 mmol/L (3.5-5.1); Sodium Level 143 mmol/L (136-145)
[2020-06-16 12:51] VITALS: RESP 20
== END 2020-06-16 12:55 | disposition home or self-care (01) ==
PROVIDERS: Emergency Provider Emergency Medicine; PCP Family Medicine Geriatric Medicine
DX: I89.0 Lymphedema, not elsewhere classified (principal); E66.9 Obesity, unspecified; I48.91 Unspecified atrial fibrillation; Z90.710 Acquired absence of both cervix and uterus; Z87.891 Personal history of nicotine dependence; Z79.02 Long term (current) use of antithrombotics/antiplatelets; Z79.52 Long term (current) use of systemic steroids
CPT/HCPCS: 36591; 80048; 85025; 87070; 87205; 99284; A4216

== ENCOUNTER → 2020-06-20 14:34 | Outpatient (CLI) | payer MEDICARE, OTHER, SELFPAY ==
[2020-06-16 10:44] VITALS: BMI 44.9
[2020-06-20 18:17] LABS: Absolute Lymphocyte Count 0.95 X10^3/uL (0.83-4.51); Basophil# 0.08 X10^3/uL; Basophil% 0.8 % (0-1); Eosinophil# 0.05 X10^3/uL; Eosinophils% 0.5 % (0-5); Hematocrit 38.9 % (37-47); Hemoglobin 11.1 g/dL (12.0-15.0); Lymphocyte # 0.95 X10^3/ul (4.0); Lymphocyte % 9.8 % (19-41); Mean Corp Hgb Conc 28.5 g/dL (32-36); Mean Corpuscular Hgb 28.2 pg (27.0-32.0); Mean Corpuscular Volume 98.7 fL (81-99); Mean Platelet Vol. 10.3 fl (6.2-12.0); Monocyte# 0.56 X10^3/uL; Monocyte% 5.8 % (0-10); NRBC Flagged by Analyzer 0 % (0-5); Neutrophil % 82.6 % (47-70); Platelet Count 494 K/mm3 (150-450); RBC Distribution Width CV 13.9 % (11.6-14.6); RBC Distribution Width SD 50.3 fl (35.1-43.9); Red Blood Count 3.94 M/mm3 (4.2-5.4); White Blood Count 9.7 K/mm3 (4.4-11.0)
[2020-06-20 18:27] LABS: Vitamin D,25 Hydroxy 27.2 ng/mL
[2020-06-20 18:47] LABS: ALB/GLOB Ratio 1.1 RATIO (0.9-2.4); AST(SGOT) 13 U/L (15-37); Alanine Aminotransfer ALT/SGPT 24 U/L (13-56); Albumin, Serum 3.2 g/dL (3.2-5.0); Alkaline Phosphatase 69 U/L (45-117); Anion Gap 6 (5-15); BUN 18 mg/dL (7-18); BUN/Creat Ratio 17.8 RATIO (10-20); Calcium,Total 8.8 mg/dL (8.5-10.1); Chloride 101 mmol/L (98-107); Creatinine, Serum 1.01 mg/dL (0.55-1.02); EST Glomerular Filtration Rate 58 mL/min (>60); Est Glom Filt Rate - Afr Amer 70 mL/min (>60); Globulin 2.8 g/dL (2.2-4.2); Glucose 114 mg/dL (74-106); Sodium Level 140 mmol/L (136-145); Thyroid Stim Hormone (TSH) 3.43 uIU/mL (0.358-3.74)
== END ==
PROVIDERS: PCP Family Medicine Geriatric Medicine; Visit Provider Family Medicine Geriatric Medicine
DX: E55.9 Vitamin D deficiency, unspecified (principal); I10 Essential (primary) hypertension
CPT/HCPCS: 36415; 80053; 82306; 84443; 85025

== ENCOUNTER 2020-07-13 11:00 | Outpatient (RCR) | payer MEDICARE, OTHER, SELFPAY ==
[2020-06-29 09:12] VITALS: BP 149/81; PULSE 88; TEMP 36.1; BMI 44.9
--- NOTE | 2020-06-29 09:54 | PCM.WC.HP ---
(1) Venous stasis ulcer of right lower leg with edema of right lower leg Status: Acute Code(s): I83.019 - Varicose veins of right lower extremity with ulcer of unspecified site; I83.891 - Varicose veins of right lower extremity with other complications; L97.919 - Non-pressure chronic ulcer of unspecified part of right lower leg with unspecified severity; R60.9 - Edema, unspecified (2) Chronic venous insufficiency Status: Chronic Code(s): I87.2 - Venous insufficiency (chronic) (peripheral) (3) A-fib Status: Chronic Code(s): I48.91 - Unspecified atrial fibrillation (4) COPD (chronic obstructive pulmonary disease) Status: Chronic Qualifiers: Code(s): J44.9 - Chronic obstructive pulmonary disease, unspecified (5) Chronic steroid use Status: Chronic Code(s): LYS2158 - (6) Hypertension Status: Chronic Qualifiers: Code(s): I10 - Essential (primary) hypertension (7) Hypogammaglobulinemia Status: Chronic Code(s): D80.1 - Nonfamilial hypogammaglobulinemia (8) Lymphedema of lower extremity Status: Chronic Qualifiers: Code(s): I89.0 - Lymphedema, not elsewhere classified (9) Morbid obesity with BMI of 40.0-44.9, adult Status: Chronic Code(s): E66.01 - Morbid (severe) obesity due to excess calories; Z68.41 - Body mass index [BMI]40.0-44.9, adult (10) Pulmonary hypertension Status: Chronic Code(s): I27.2 - Other secondary pulmonary hypertension (11) Hypothyroidism Status: Chronic Code(s): E03.9 - Hypothyroidism, unspecified History of Present Illness Date of Service: 06/29/20 Chief Complaint: Severe swelling, edema, and lymphedema of both lower extremities, with an ulceration of the left anterior tibial surface History of Wound: This is a 64-year-old female with a history of chronic swelling, edema, and lymphedema in her lower extremities. She claims to have initially developed severe swelling, edema, and lymphedema in her lower extremities in September 2015. At that time, she was treated aggressively by conservative measures, which included pool therapy. Patient indicates that the swelling, edema, and lymphedema subsequently resolved. Since October 2019, however, the swelling, edema, and lymphedema in the patient's lower extremities has recurred. It has persisted since its most recent onset, and has been associated with the development of subcutaneous ulcerations beginning in Jan 2020. Her initial ulcerations healed in April 2020 and [facility] However, she has had a recent development of new ulcerations. The patient reported to the emergency department at [facility] on 06/16/2020 for worsening swelling of her bilateral lower extremities, and drainage from her right lower extremity, which had been ongoing for approximately 3 to 4 days at that time. She had reported drainage and bleeding from 2 ulcerations of the right lower extremity, as well as increased erythema and pain. On ER exam, it was not felt that the patient had cellulitis. Lab work and a wound culture were obtained. Labs (CBCD, CMP, TSH) from 06/20/2020 are significant for the following: Anemia (RBC 3.94, hemoglobin 11.1), platelets 494, glucose 114, estimated GFR 58, total bilirubin 1.4. Wound cultures collected on 06/16/2020 were positive for 1+ coag negative staph, rare coag negative staph #2, and rare gram-positive viviana. I suspect these culture findings are due to contamination. Since the development of these new ulcerations in May 2020, the patient has been using left-over Promogran to the ulcers daily with good tolerance and good response. She also recently received lymphedema pumps and has been using these for approximately 45 minute sessions, working up to three sessions daily. She wraps her legs with Hiram bandages for compression at home. The patient is morbidly obese. She sleeps in a recliner. She is not active, ambulating only in limited fashion using a cane. She sits idlly throughout the day. Patient suffers from multiple pre-existing medical problems, as detailed above. Many of these problems are, in part, indirectly related to the patient's lower extremity swelling and edema. The patient denies any fever, chills, nausea, vomiting, or diarrhea. Denies any increasing pain, redness, swelling, or purulent/malodorous drainage from affected area. She states the redness and pain in her right lower extremity have improved since her visit to the emergency department. Past Medical History Past Medical History: Chronic Problems (Last Reviewed 05/29/20 @ 11:47 by Tiffanie Rodriguez) A-fib (Chronic) Compression fracture of lumbar vertebra (Chronic) History of pulmonary embolism (Chronic) Morbid obesity with BMI of 40.0-44.9, adult (Chronic) Leg swelling (Chronic) Leg edema (Chronic) Hypothyroidism (Chronic) Chronic venous insufficiency (Chronic) Lymphedema of lower extremity (Chronic) Infected skin ulcer with fat layer exposed (Chronic) Personal history of skin cancer (Chronic) Neoplasm of unspecified behavior of bone, soft tissue, and skin (Chronic) 3 cm lesion anterior frontal scalp Hypogammaglobulinemia (Chronic) IgG subclass deficiency (Chronic) Compression fracture of L1 lumbar vertebra (Chronic) Compression fracture of L2 (Chronic) Compression fracture of L3 lumbar vertebra (Chronic) Osteoporosis (Chronic) Chronic steroid use (Chronic) Degenerative disc disease (Chronic) Constipation (Chronic) Osteoarthritis (Chronic) Pulmonary hypertension (Chronic) Obstructive sleep apnea (Chronic) Constipation due to opioid therapy (Chronic) L3 pathological fracture (Chronic) Lumbosacral spondylosis (Chronic) DDD (degenerative disc disease), lumbosacral (Chronic) Chronic back pain (Chronic) COPD (chronic obstructive pulmonary disease) (Chronic) Hypertension (Chronic) Crohns disease (Chronic) Surgical History: hysterectomy, total knee arthroplasty - Left, - - Multiple small bowel resections, L3 kyphoplasty, right lower extremity surgery, TNA, port placement, left pneumonectomy. The patient is a Ab0. Allergies/Adverse Reactions: Allergies codeine Allergy (Severe, Verified 06/16/20 10:44) ANGIOEDEMA/LEG SWELLING Penicillins Allergy (Severe, Verified 06/16/20 10:44) ANGIOEDEMA/LEG SWELLING Sulfa (Sulfonamide Antibiotics) Allergy (Severe, Verified 06/16/20 10:44) ANGIOEDEMA/LEG SWELLING sulfasalazine [From Azulfidine] Allergy (Severe, Verified 06/16/20 10:44) ANGIOEDEMA/LEG SWELLING Home Medications: Ambulatory Orders Medication Instructions Recorded Erythromycin Ophthalmic 1 applic OPHTHALMIC QHS 06/20/14 Budesonide/Formoterol 160/4.5 2 puff INHALATION BID 04/25/16 [Symbicort 160/4.5 Mcg Inhaler (SP)] Morphine [Morphine IR] 15 mg PO TID 10/05/18 digoxin 125 mcg (0.125 mg) tablet 125 mcg PO DAILY #90 tab 02/23/20 Rivaroxaban [Xarelto] 20 mg PO DAILY 03/21/20 Bumetanide [Bumex] 2 mg PO BID 03/27/20 amiodarone 200 mg tablet 100 mg PO DAILY #90 tab 05/29/20 diphenoxylate-atropine 2.5 1 tab PO Q4H PRN 05/29/20 mg-0.025 mg tablet levothyroxine 25 mcg tablet 25 mcg PO DAILY tab 05/29/20 pantoprazole 40 mg tablet,delayed 40 mg PO DAILY PRN 05/29/20 release potassium chloride 20 mEq meq PO DAILY PRN tab 05/29/20 tablet,extended release(part/cryst) prednisone 20 mg tablet 10 mg PO DAILY@0800 tab 05/29/20 sildenafil (pulm.hypertension) 20 20 mg PO TID 05/29/20 mg tablet - Family History Maternal Family History: Family History (Last Reviewed 05/29/20 @ 11:47 by Tiffanie Rodriguez) Father Anemia Heart disease Hypertension CVA (cerebral vascular accident) Mother Arthritis Cancer Osteoporosis Sister Arthritis Lung disease No pertinent history Paternal Family History: Family History (Last Reviewed 05/29/20 @ 11:47 by Tiffanie Rodriguez) Father Anemia Heart disease Hypertension CVA (cerebral vascular accident) Mother Arthritis Cancer Osteoporosis Sister Arthritis Lung disease No pertinent history Smoking Status: Former smoker Review of Systems Constitutional: Denies: Chills, Fever, Weight Change Cardiovascular: Reports: Edema Respiratory: Reports: Cough, Shortness of Breath Gastrointestinal: Denies: Diarrhea, Nausea, Vomiting Musculoskeletal: Reports: Back Pain Skin: Reports: Dryness, Wounds Hematologic/ Lymphatic: Reports: Hx of blood clot - Physical Exam Vital Signs Temp Pulse BP 97.0 F L 88 149/81 H 06/29/20 09:12 06/29/20 09:12 06/29/20 09:12 General: Alert, Cooperative, No apparent distress HEENT: Atraumatic, Normocephalic Oral: Moist Mucosa Neck: Supple, Trachea Midline Lungs: Clear to auscultation, Normal air movement, No rhonchi, No wheeze, No rales Cardiovascular: Regular rate Abdomen: Bowel Sounds Present, Soft, Non Tender, Non-Distended, Obese Extremities: No clubbing, No cyanosis, Capillary Refill Less than 3 Seconds, Edema, Peripheral Pulses Normal Skin: Ulcer/ Wound - Ulcer cluster right lower extremity with subcutaneous layer exposed. Small amount of slough and devitalized tissue present. No tunneling, undermining, or probing to bone. No purulent/malodorous drainage. No periulcer erythema, warmth, or tenderness. Wound Measurements and Assessment WC - Nurse 1 - General Ulcer Measurement Start: 06/29/20 09:11 Freq: Status: Active Protocol: Activity Type Activity Date Activity User E-Sign Co-Sign Detail Recorded Client Recorded Date Recorded By Document 06/29/20 09:12 MICHAEL [id number] 06/29/20 09:22 MICHAEL 06/29/20 09:12 [facility] Nurse 1 [Ulcer Assessment] #5 RLE Anterior Cluster -Current Size (cm) - Length 1 -Current Size (cm) - Width 2.6 -Current Size (cm) - Depth 0.2 -Total Square Cm 2.6 -Exudate Amt Small -Exudate Type Serosanguineous -Wound Margin Distinct, Outline Attached -Granulation Amt Large (67-100%) -Granulation Quality Red -Necrosis Amt None Present (0 %) -Texture (Cecilia-wound Skin Appearance) Assessed, Scarring -Moisture (Cecilia-wound Skin Appearance No Abnormality, ) Assessed -Color (Cecilia-wound Skin Appearance) No Abnormality, Assessed -Temperature (Cecilia-wound Skin No Abnormality Appearance) (Pt Warm) -Tenderness on Palpation (Cecilia-wound No Skin Appearance) -Ulcer Cleansing Rinsed/ Irrigated with Saline -Foul Odor after Cleansing No -Anesthetic Used 4% Lidocaine Solution [Edema Assessment] -Right Calf (cm) 66 -Right Ankle (cm) 39 -Left Calf (cm) 58.6 -Left Ankle (cm) 39 Psych/Mental Status: Normal Affect, Appropriate Debridement Note Wound debrided: Right lower extremity ulcer cluster Laterality: Right Type of Debridement: Excisional debridement Anesthesia Used: 4% Lidocaine Solution Depth: in the subcutaneous layer Percentage of wound debrided: 50, - - Other 50% of the area is healthy, intact skin. Instrument Used: 3mm curette Tissue Removed: Slough and devitalized tissue Severity: Fat Layer Exposed Amount of bleeding with debridement: Mild Bleeding Controlled with: Pressure Patient tolerated procedure well Assessment/Plan Assessment: See above Plan: Debridement performed today in clinic. Promogran and an Unna boot applied to the right lower extremity. Bandages applied to the left lower extremity. At home wound-care instructions: The patient was instructed to keep the Unna boot clean and dry. If the Unna boot becomes wet or begins to fall off, the Unna boot may be removed and daily cleansing with antibacterial soap and water, daily dressing changes with Promogran and daily use of compression with Hiram wraps should be initiated. Patient should also continue the use of her lymphedema pumps as previously directed, and attempt to use these 3 times daily. Off-loading: Patient was instructed to avoid prolonged standing or dangling of legs. She is instructed to elevate the feet at or above heart level when seated. Diet: Patient encouraged to increase protein and vitamin C intake while taking caution to avoid high carbohydrate and/or sugar intake. Labs/cultures/imaging: Cultures and labs from emergency room visit on 06/16/2020 were reviewed; significant for the findings noted above. Follow-up: Return to clinic in 1 week for re-evaluation. Return sooner or report to the emergency room should symptoms worsen, or new symptoms arise. We will refer the patient to the lymphedema clinic for further evaluation and treatment. Note: [employer] speech recognition technical [employer] software was used to create portions of this document. Sound-alike and misspelled words, as well as other technical [employer] errors may be contained in the documentation. Office Visits / Consults: [id number] OV L4 Est [id number]: [id number] Ibis subq tissue 20 sq cm/<
[2020-07-06 10:53] VITALS: BP 161/91; PULSE 74; TEMP 35.8; BMI 44.9
--- NOTE | 2020-07-06 12:55 | PN.PCM_ITS ---
(1) Venous stasis ulcer of right lower leg with edema of right lower leg Status: Acute Code(s): I83.019 - Varicose veins of right lower extremity with ulcer of unspecified site; I83.891 - Varicose veins of right lower extremity with other complications; L97.919 - Non-pressure chronic ulcer of unspecified part of right lower leg with unspecified severity; R60.9 - Edema, unspecified (2) Chronic venous insufficiency Status: Chronic Code(s): I87.2 - Venous insufficiency (chronic) (peripheral) (3) A-fib Status: Chronic Code(s): I48.91 - Unspecified atrial fibrillation (4) COPD (chronic obstructive pulmonary disease) Status: Chronic Qualifiers: Code(s): J44.9 - Chronic obstructive pulmonary disease, unspecified (5) Chronic steroid use Status: Chronic Code(s): [id number] - (6) Hypertension Status: Chronic Qualifiers: Code(s): I10 - Essential (primary) hypertension (7) Hypogammaglobulinemia Status: Chronic Code(s): D80.1 - Nonfamilial hypogammaglobulinemia (8) Lymphedema of lower extremity Status: Chronic Qualifiers: Code(s): I89.0 - Lymphedema, not elsewhere classified (9) Morbid obesity with BMI of 40.0-44.9, adult Status: Chronic Code(s): E66.01 - Morbid (severe) obesity due to excess calories; Z68.41 - Body mass index [BMI]40.0-44.9, adult (10) Pulmonary hypertension Status: Chronic Code(s): I27.2 - Other secondary pulmonary hypertension (11) Hypothyroidism Status: Chronic Code(s): E03.9 - Hypothyroidism, unspecified Type of Wound Date of Service: 07/06/20 Chief Complaint: Severe swelling, edema, and lymphedema of both lower extremi ties, with an ulceration of the left anterior tibial surface History of Wound: This is a 64-year-old female with a history of chronic swelling, edema, and lymphedema in her lower extremities. She claims to have initially developed severe swelling, edema, and lymphedema in her lower extremities in September 2015. At that time, she was treated aggressively by conservative measures, which included pool therapy. Patient indicates that the swelling, edema, and lymphedema subsequently resolved. Since October 2019, however, the swelling, edema, and lymphedema in the patient's lower extremities has recurred. It has persisted since its most recent onset, and has been associated with the development of subcutaneous ulcerations beginning in Jan 2020. Her initial ulcerations healed in April 2020 and [facility] However, she has had a recent development of new ulcerations. The patient reported to the emergency department at [facility] on 06/16/2020 for worsening swelling of her bilateral lower extremities, and drainage from her right lower extremity, which had been ongoing for approximately 3 to 4 days at that time. She had reported drainage and bleeding from 2 ulcerations of the right lower extremity, as well as increased erythema and pain. On ER exam, it was not felt that the patient had cellulitis. Lab work and a wound culture were obtained. Labs (CBCD, CMP, TSH) from 06/20/2020 are significant for the following: Anemia (RBC 3.94, hemoglobin 11.1), platelets 494, glucose 114, estimated GFR 58, total bilirubin 1.4. Wound cultures collected on 06/16/2020 were positive for 1+ coag negative staph, rare coag negative staph #2, and rare gram-positive viviana. I suspect these culture findings are due to contamination. Since the development of these new ulcerations in May 2020, the patient has been using left-over Promogran to the ulcers daily with good tolerance and good response. She also recently r eceived lymphedema pumps and has been using these for approximately 45 minute sessions, working up to three sessions daily. She wraps her legs with Hiram bandages for compression at home. The patient is morbidly obese. She sleeps in a recliner. She is not active, ambulating only in limited fashion using a cane. She sits idlly throughout the day. Patient suffers from multiple pre-existing medical problems, as detailed above. Many of these problems are, in part, indirectly related to the patient's lower extremity swelling and edema. The patient denies any fever, chills, nausea, vomiting, or diarrhea. Denies any increasing pain, redness, swelling, or purulent/malodorous drainage from affected area. She states the redness and pain in her right lower extremity have improved since her visit to the emergency department. Progress of Wound: Patient's right lower extremity ulcers have improved in size and appearance. She tolerated the Unna boot well. And was able to keep it in place until yesterday. At which time she removed it to shower. Her skin is much less dry and her swelling is improved. The patient denies any fever, chills, nausea, vomiting, or diarrhea. Denies any increasing pain, redness, swelling, or purulent/malodorous drainage from affected area. - Physical Exam Vital Signs Temp Pulse BP 96.4 F L 74 161/91 H 07/06/20 10:53 07/06/20 10:53 07/06/20 10:53 General: Alert, Cooperative, No apparent distress Lungs: Normal air movement Abdomen: Obese Extremities: No clubbing, No cyanosis, Edema, Peripheral Pulses Normal Skin: Ulcer/ Wound - Ulcer cluster of right lower extremity with subcutaneous layer exposed. Small amount of slough in devitalized tissue present. No tunneling, undermining, or probing to bone. No purulent/malodorous drainage. No periulcer erythema, warmth, or tenderness. Wound Measurements and Assessment WC - Nurse 1 - General Ulcer Measurement Start: 06/29/20 09:11 Freq: Status: Active Protocol: Activity Type Activity Date Activity User E-Sign Co-Sign Detail Recorded Client Recorded Date Recorded By Document 07/06/20 10:53 MICHAEL [id number] 07/06/20 10:59 MICHAEL 07/06/20 10:53 Wound Center Nurse 1 [Ulcer Assessment] #5 RLE Anterior Cluster -Current Size (cm) - Length 0.5 -Current Size (cm) - Width 1.5 -Current Size (cm) - Depth 0.1 -Total Square Cm 0.75 -Exudate Amt None Present -Wound Margin Distinct, Outline Attached -Granulation Amt None Present (0 %) -Necrosis Amt None Present (0 %) -Texture (Cecilia-wound Skin Appearance) Assessed, Scarring -Moisture (Cecilia-wound Skin Appearance No Abnormality, ) Assessed -Color (Cecilia-wound Skin Appearance) No Abnormality, Assessed -Temperature (Cecilia-wound Skin No Abnormality Appearance) (Pt Warm) -Tenderness on Palpation (Cecilia-wound No Skin Appearance) -Ulcer Cleansing Rinsed/ Irrigated with Saline -Foul Odor after Cleansing No -Anesthetic Used 4% Lidocaine Solution [Edema Assessment] -Right Calf (cm) 68.5 -Right Ankle (cm) 49 WC - Nurse 2 - General Ulcer CM Notes Start: 06/29/20 09:11 Freq: Status: Active Protocol: Activity Type Activity Date Activity User E-Sign Co-Sign Detail Recorded Client Recorded Date Recorded By Document 07/06/20 12:32 PL [id number] 07/06/20 12:33 PL 07/06/20 12:32 Wound Center Nurse 2 [Procedure/Treatment] #5 RLE Anterior Cluster -Time 11:26 -Correct Patient Yes -Correct Side, Site, Position Yes -Correct Procedure Yes -Procedure Performed Yes -Type of Procedure Debridement -Clinical Debridement Subcutaneous -Tissue Removed Subcutaneous -Post Debridement (cm) - Length 2.8 -Post Debridement (cm) - Width 1.3 -Post Debridement (cm) - Depth 0.1 -Total Square (Post) (cm) 3.64 -Area of Debridement (cm) - Length 2.8 -Area of Debridement (cm) - Width 1.3 -Total Square (Area) (cm) 3.64 -Tunneling No -Undermining/Tunneling No -Circular Undermining No -Wound/Ulcer Outcome Not Healed -Ulcer Cleansing Rinsed/ Irrigated with Saline -Foul Odor after Cleansing No -Bioengineered Tissue No -Debridement - Subq, 1st 20sq cm Yes [See Physician Procedure note for Specifics] Pain Scale: 0-10 Numeric [Pain] -Is Patient Pain Free? Yes - Nurse 3 - General Ulcer D/C NN Start: 06/29/20 09:11 Freq: Status: Active Protocol: Activity Type Activity Date Activity User E-Sign Co-Sign Detail Recorded Client Recorded Date Recorded By Document 07/06/20 11:57 KR [id number] 07/06/20 11:59 KR 07/06/20 11:57 Wound Care Nurse 3 [Wound Dressing] #5 RLE Anterior Cluster -Ulcer Cleansing Rinsed/ Irrigated with Saline -Foul Odor after Cleansing No -Primary Dressing Applied Promogran -Primary Dressing Covered/Secured Dry Gauze, with Secured with Tape -Promogran 1 [Compression Applied] #5 RLE Anterior -Multi-Layered Wrap Application Unna Boot - Right ($) -Compression Wrap Unna Boot ($) ( single) Pain Scale: 0-10 Numeric [Pain] -Is Patient Pain Free? Yes - Visit Discharge [Visit Discharge Information] -Discharge Condition Stable -Ambulatory Status Ambulatory,Cane -Transportation Private Auto Psych/Mental Status: Normal Affect, Appropriate Debridement Note Post-Debridement Measurements/Treatment - Nurse 2 - General Ulcer CM Notes Start: 06/29/20 09:11 Freq: Status: Active Protocol: Activity Type Activity Date Activity User E-Sign Co-Sign Detail Recorded Client Recorded Date Recorded By Document 06/29/20 10:06 PL [id number] 06/29/20 10:08 PL Document 07/06/20 12:32 PL [id number] 07/06/20 12:33 PL 06/29/20 07/06/20 10:06 12:32 Wound Center Nurse 2 #5 RLE Anterior Cluster -Time 09:34 11:26 -Correct Patient Yes Yes -Correct Side, Site, Position Yes Yes -Correct Procedure Yes Yes -Procedure Performed Yes Yes -Type of Procedure Debridement Debridement -Clinical Debridement Subcutaneous Subcutaneous -Tissue Removed Subcutaneous Subcutaneous -Post Debridement (cm) - Length 1.5 2.8 -Post Debridement (cm) - Width 3 1.3 -Post Debridement (cm) - Depth 0.1 0.1 -Total Square (Post) (cm) 4.5 3.64 -Area of Debridement (cm) - Length 1.5 2.8 -Area of Debridement (cm) - Width 3 1.3 -Total Square (Area) (cm) 4.5 3.64 -Tunneling No No -Undermining/Tunneling No No -Circular Undermining No No -Wound/Ulcer Outcome Not Healed Not Healed -Ulcer Cleansing Rinsed/ Rinsed/ Irrigated with Irrigated with Saline Saline -Foul Odor after Cleansing No No -Bioengineered Tissue No No -Debridement - Subq, 1st 20sq cm Yes Yes Pain Scale: 0-10 Numeric Is Patient Pain Free? Yes Yes - Nurse 3 - General Ulcer D/C NN Start: 06/29/20 09:11 Freq: Status: Active Protocol: Activity Type Activity Date Activity User E-Sign Co-Sign Detail Recorded Client Recorded Date Recorded By Document 06/29/20 10:07 KR [id number] 06/29/20 10:08 KR Document 07/06/20 11:57 KR [id number] 07/06/20 11:59 KR 06/29/20 07/06/20 10:07 11:57 Wound Care Nurse 3 #5 RLE Anterior Cluster -Ulcer Cleansing Rinsed/ Rinsed/ Irrigated with Irrigated with Saline Saline -Foul Odor after Cleansing No -Primary Dressing Applied Promogran Promogran Caroline Matter -Primary Dressing Covered/Secured with Dry Gauze, Secured with Tape -Promogran 1 -Promogran Caroline Matter 1 #5 RLE Anterior -Multi-Layered Wrap Application Unna Boot - Unna Boot - Right ($) Right ($) -Compression Wrap Unna Boot ($) ( Unna Boot ($) ( single) single) Pain Scale: 0-10 Numeric Is Patient Pain Free? Yes Yes WC - Visit Discharge Discharge Condition Stable Stable Ambulatory Status Ambulatory Ambulatory,Cane Transportation Private Auto Private Auto Wound debrided: RLE ulcer cluster Laterality: Right Type of Debridement: Excisional debridement Anesthesia Used: 4% Lidocaine Solution Percentage of wound debrided: 100 Instrument Used: 3mm curette Tissue Removed: Slough and devitalized tissue Severity: Fat Layer Exposed Amount of bleeding with debridement: Mild Bleeding Controlled with: Pressure Patient tolerated procedure well Assessment/Plan Active Problems (Last Reviewed 05/29/20 @ 11:47 by Tiffanie Rodriguez) A-fib (Chronic) Morbid obesity with BMI of 40.0-44.9, adult (Chronic) Hypothyroidism (Chronic) Chronic venous insufficiency (Chronic) Venous stasis ulcer of right lower leg with edema of right lower leg (Acute) Lymphedema of lower extremity (Chronic) Hypogammaglobulinemia (Chronic) Chronic steroid use (Chronic) Pulmonary hypertension (Chronic) COPD (chronic obstructive pulmonary disease) (Chronic) Hypertension (Chronic) Assessment: See above Plan: Debridement performed today in clinic. Promogran and an Unna boot applied to the right lower extremity. Patient instructed to continue Hiram bandages to the left lower extremity for compression. She was encouraged to try calmoseptine to the left lower extremity to soothe her skin. At home wound-care instructions: The patient was instructed to keep the Unna boot clean and dry. If the Unna boot becomes wet or begins to fall off, the Unna boot may be removed and daily cleansing with antibacterial soap and water, daily dressing changes with Promogran and daily use of compression with Hiram wraps should be initiated. Patient should also continue the use of her lymphedema pumps as previously directed, and attempt to use these 3 times daily. Off-loading: Patient was instructed to avoid prolonged standing or dangling of legs. She is instructed to elevate the feet at or above heart level when seated. Diet: Patient encouraged to increase protein and vitamin C intake while taking caution to avoid high carbohydrate and/or sugar intake. Labs/cultures/imaging: Cultures and labs from emergency room visit on 06/16/2020 were reviewed; significant for the findings noted above. No clinical signs of infection today. Follow-up: Return to clinic in 1 week for re-evaluation. Return sooner or report to the emergency room should symptoms worsen, or new symptoms arise. We will refer the patient to the lymphedema clinic for further evaluation and treatment. Note: [employer] speech recognition semiconductor lab technician software was used to create portions of this document. Sound-alike and misspelled words, as well as other semiconductor lab technician errors may be contained in the documentation. [id number]: [id number] Ibis subq tissue 20 sq cm/<
[2020-07-13 11:16] VITALS: BP 187/82; PULSE 92; RESP 20; TEMP 35.9; BMI 44.9
--- NOTE | 2020-07-13 13:59 | PN.PCM_ITS ---
(1) Venous stasis ulcer of right lower leg with edema of right lower leg Status: Resolved Code(s): I83.019 - Varicose veins of right lower extremity with ulcer of unspecified site; I83.891 - Varicose veins of right lower extremity with other complications; L97.919 - Non-pressure chronic ulcer of unspecified part of right lower leg with unspecified severity; R60.9 - Edema, unspecified (2) Chronic venous insufficiency Status: Chronic Code(s): I87.2 - Venous insufficiency (chronic) (peripheral) (3) A-fib Status: Chronic Code(s): I48.91 - Unspecified atrial fibrillation (4) COPD (chronic obstructive pulmonary disease) Status: Chronic Qualifiers: Code(s): J44.9 - Chronic obstructive pulmonary disease, unspecified (5) Chronic steroid use Status: Chronic Code(s): SGT0771 - (6) Hypertension Status: Chronic Qualifiers: Code(s): I10 - Essential (primary) hypertension (7) Hypogammaglobulinemia Status: Chronic Code(s): D80.1 - Nonfamilial hypogammaglobulinemia (8) Lymphedema of lower extremity Status: Chronic Qualifiers: Code(s): I89.0 - Lymphedema, not elsewhere classified (9) Morbid obesity with BMI of 40.0-44.9, adult Status: Chronic Code(s): E66.01 - Morbid (severe) obesity due to excess calories; Z68.41 - Body mass index [BMI]40.0-44.9, adult (10) Pulmonary hypertension Status: Chronic Code(s): I27.2 - Other secondary pulmonary hypertension (11) Hypothyroidism Status: Chronic Code(s): E03.9 - Hypothyroidism, unspecified (12) Compression fracture of L1 lumbar vertebra Status: Chronic Code(s): S32.010A - Wedge compression fracture of first lumbar vertebra, initial encounter for closed fracture (13) Compression fracture of L2 Status: Chronic Code(s): S32.020A - Wedge compression fracture of second lumbar vertebra, initial encounter for closed fracture (14) Compression fracture of L3 lumbar vertebra Status: Chronic Code(s): S32.030A - Wedge compression fracture of third lumbar vertebra, initial encounter for closed fracture (15) DDD (degenerative disc disease), lumbosacral Status: Chronic Code(s): M51.37 - Other intervertebral disc degeneration, lumbosacral region Type of Wound Date of Service: 07/13/20 Chief Complaint: Severe swelling, edema, and lymphedema of both lower extremities, with an ulceration of the left anterior tibial surface History of Wound: This is a 64-year-old female with a history of chronic swelling, edema, and lymphedema in her lower extremities. She claims to have initially developed severe swelling, edema, and lymphedema in her lower extremities in September 2015. At that time, she was treated aggressively by conservative measures, which included pool therapy. Patient indicates that the swelling, edema, and lymphedema subsequently resolved. Since October 2019, however, the swelling, edema, and lymphedema in the patient's lower extremities has recurred. It has persisted since its most recent onset, and has been associated with the development of subcutaneous ulcerations beginning in Jan 2020. Her initial ulcerations healed in April 2020 and she [facility] However, she has had a recent development of new ulcerations. The patient reported to the emergency department at [facility] on 06/16/2020 for worsening swelling of her bilateral lower extremities, and drainage from her right lower extremity, which had been ongoing for approximately 3 to 4 days at that time. She had reported drainage and bleeding from 2 ulcerations of the right lower extremity, as well as increased erythema and pain. On ER exam, it was not felt that the patient had cellulitis. Lab work and a wound culture were obtained. Labs (CBCD, CMP, TSH) from 06/20 are significant for the following: Anemia (RBC 3.94, hemoglobin 11.1), platelets 494, glucose 114, estimated GFR 58, total bilirubin 1.4. Wound cultures collected on 06/16/2020 were positive for 1+ coag negative staph, rare coag negative staph #2, and rare gram-positive viviana. I suspect these culture findings are due to contamination. Since the development of these new ulcerations in May 2020, the patient has been using left-over Promogran to the ulcers daily with good tolerance and good response. She also recently received lymphedema pumps and has been using these for approximately 45 minute sessions, working up to three sessions daily. She wraps her legs with Hiram bandages for compression at home. The patient is morbidly obese. She sleeps in a recliner. She is not active, ambulating only in limited fashion using a cane. She sits idlly throughout the day. Patient suffers from multiple pre-existing medical problems, as detailed above. Many of these problems are, in part, i ndirectly related to the patient's lower extremity swelling and edema. The patient denies any fever, chills, nausea, vomiting, or diarrhea. Denies any increasing pain, redness, swelling, or purulent/malodorous drainage from affected area. She states the redness and pain in her right lower extremity have improved since her visit to the emergency department. Progress of Wound: The patient's right lower extremity ulcers have healed. She has not been compliant with 3 times daily use of lymphedema pumps, and has a large amount of swelling in bilateral lower extremities today. - Physical Exam Vital Signs Temp Pulse Resp BP 96.7 F L 92 20 H 187/82 H 07/13/20 11:16 07/13/20 11:16 07/13/20 11:16 07/13/20 11:16 General: Alert, Cooperative, No apparent distress HEENT: Atraumatic Oral: Moist Mucosa Lungs: Normal air movement Extremities: Edema, Peripheral Pulses Normal Skin: No rashes, No breakdown, - - Dry skin of left lower extremity Wound Measurements and Assessment WC - Nurse 1 - General Ulcer Measurement Start: 06/29/20 09:11 Freq: Status: Discharge Protocol: Activity Type Activity Date Activity User E-Sign Co-Sign Detail Recorded Client Recorded Date Recorded By Document 07/13/20 11:16 MS [id number] 07/13/20 11:25 MS Edit Status 07/13/20 12:44 BKG DAEMON Active=>Discharge [id number] 07/13/20 12:44 KHOIG DAEMON 07/13/20 11:16 Wound Center Nurse 1 [Ulcer Assessment] #5 RLE Anterior Cluster -Current Size (cm) - Length 0.1 -Current Size (cm) - Width 0.1 -Current Size (cm) - Depth 0.1 -Total Square Cm 0.01 -Exudate Amt None Present -Granulation Amt None Present (0 %) -Slough/Fibrin No -Necrosis Amt None Present (0 %) -Texture (Cecilia-wound Skin Appearance) No Abnormality -Moisture (Cecilia-wound Skin Appearance No Abnormality ) -Color (Cecilia-wound Skin Appearance) No Abnormality -Temperature (Cecilia-wound Skin No Abnormality Appearance) (Pt Warm) -Ulcer Cleansing Rinsed/ Irrigated with Saline -Foul Odor after Cleansing No [Edema Assessment] -Right Calf (cm) 72 -Right Ankle (cm) 52.5 WC - Nurse 2 - General Ulcer CM Notes Start: 06/29/20 09:11 Freq: Status: Discharge Protocol: Activity Type Activity Date Activity User E-Sign Co-Sign Detail Recorded Client Recorded Date Recorded By Edit Status 07/13/20 12:44 BKG DAEMON Active=>Discharge [id number] 07/13/20 12:44 BKG DAEMON WC - Nurse 3 - General Ulcer D/C NN Start: 06/29/20 09:11 Freq: Status: Discharge Protocol: Activity Type Activity Date Activity User E-Sign Co-Sign Detail Recorded Client Recorded Date Recorded By Edit Status 07/13/20 12:44 BKG DAEMON Active=>Discharge [facility] 07/13/20 12:44 BKG DAEMON Neurological: Unsteady Gait - Ambulates with a cane Psych/Mental Status: Normal Affect, Appropriate Debridement Note Post-Debridement Measurements/Treatment - Nurse 2 - General Ulcer CM Notes Start: 06/29/20 09:11 Freq: Status: Discharge Protocol: Activity Type Activity Date Activity User E-Sign Co-Sign Detail Recorded Client Recorded Date Recorded By Document 06/29/20 10:06 PL [id number] 06/29/20 10:08 PL Document 07/06/20 12:32 PL [id number] 07/06/20 12:33 PL 06/29/20 07/06/20 10:06 12:32 Wound Center Nurse 2 #5 RLE Anterior Cluster -Time 09:34 11:26 -Correct Patient Yes Yes -Correct Side, Site, Position Yes Yes -Correct Procedure Yes Yes -Procedure Performed Yes Yes -Type of Procedure Debridement Debridement -Clinical Debridement Subcutaneous Subcutaneous -Tissue Removed Subcutaneous Subcutaneous -Post Debridement (cm) - Length 1.5 2.8 -Post Debridement (cm) - Width 3 1.3 -Post Debridement (cm) - Depth 0.1 0.1 -Total Square (Post) (cm) 4.5 3.64 -Area of Debridement (cm) - Length 1.5 2.8 -Area of Debridement (cm) - Width 3 1.3 -Total Square (Area) (cm) 4.5 3.64 -Tunneling No No -Undermining/Tunneling No No -Circular Undermining No No -Wound/Ulcer Outcome Not Healed Not Healed -Ulcer Cleansing Rinsed/ Rinsed/ Irrigated with Irrigated with Saline Saline -Foul Odor after Cleansing No No -Bioengineered Tissue No No -Debridement - Subq, 1st 20sq cm Yes Yes Pain Scale: 0-10 Numeric Is Patient Pain Free? Yes Yes - Nurse 3 - General Ulcer D/C NN Start: 06/29/20 09:11 Freq: Status: Discharge Protocol: Activity Type Activity Date Activity User E-Sign Co-Sign Detail Recorded Client Recorded Date Recorded By Document 06/29/20 10:07 KR [id number] 06/29/20 10:08 KR Document 07/06/20 11:57 KR [id number] 07/06/20 11:59 KR 06/29/20 07/06/20 10:07 11:57 Wound Care Nurse 3 #5 RLE Anterior Cluster -Ulcer Cleansing Rinsed/ Rinsed/ Irrigated with Irrigated with Saline Saline -Foul Odor after Cleansing No -Primary Dressing Applied Promogran Promogran Caroline Matter -Primary Dressing Covered/Secured with Dry Gauze, Secured with Tape -Promogran 1 -Promogran Caroline Matter 1 #5 RLE Anterior -Multi-Layered Wrap Application Unna Boot - Unna Boot - Right ($) Right ($) -Compression Wrap Unna Boot ($) ( Unna Boot ($) ( single) single) Pain Scale: 0-10 Numeric Is Patient Pain Free? Yes Yes - Visit Discharge Discharge Condition Stable Stable Ambulatory Status Ambulatory Ambulatory,Cane Transportation Private Auto Private Auto No debridement was completed today Assessment/Plan Active Problems (Last Reviewed 05/29/20 @ 11:47 by Tiffanie Rodriguez) A-fib (Chronic) Morbid obesity with BMI of 40.0-44.9, adult (Chronic) Hypothyroidism (Chronic) Chronic venous insufficiency (Chronic) Lymphedema of lower extremity (Chronic) Hypogammaglobulinemia (Chronic) Chronic steroid use (Chronic) Pulmonary hypertension (Chronic) COPD (chronic obstructive pulmonary disease) (Chronic) Hypertension (Chronic) Assessment: See above Plan: The patient's ulcers are healed today. She will be discharged from the wound healing center, and is instructed to follow-up on an as-needed basis should new wounds develop. The importance of compression and compliance with use of lymphedema pumps was stressed with the patient today. The patient was instructed to continue Hiram bandages to the bilateral lower extremities for compression. She was encouraged to try calmoseptine to the bilateral lower extremities to soothe her skin. The patient will be referred to the lymphedema clinic for continued management of her lymphedema with the hopes of preventing further ulcer development. She will also be referred to aquatic therapy for physical therapy in efforts to increase physical activity, reduce edema, and improve overall wellness. She has completed aquatic therapy in the past and tolerated this well. Aquatic therapy was also of benefit for her edema. The patient was instructed to avoid prolonged standing or dangling of legs. She is instructed to elevate the feet at heart level when seated. Note: [employer] speech recognition medical laboratory assistant software was used to create portions of this document. Sound-alike and misspelled words, as well as other medical laboratory assistant errors may be contained in the documentation. Office Visits / Consults: [id number] OV L3 Est
== END 2020-07-13 12:44 | disposition home or self-care (01) ==
LOC: WC 11:00
PROVIDERS: PCP Family Medicine Geriatric Medicine; Visit Provider Nurse Practitioner Family
DX: I89.0 Lymphedema, not elsewhere classified (principal); M79.89 Other specified soft tissue disorders; R60.0 Localized edema; L97.812 Non-pressure chronic ulcer of other part of right lower leg with fat layer exposed; E66.01 Morbid (severe) obesity due to excess calories; Z68.41 Body mass index [BMI] 40.0-44.9, adult
CPT/HCPCS: 11042; 29580; 99213; G0463

== ENCOUNTER → 2020-07-20 14:59 | Outpatient (CLI) | payer MEDICARE, OTHER, SELFPAY ==
[2020-07-13 11:16] VITALS: BMI 44.9
[2020-07-20 17:16] LABS: BNP,B-Type NATRIURETIC PEPTIDE 58.5 pg/mL (0-100)
== END ==
PROVIDERS: PCP Family Medicine Geriatric Medicine; Visit Provider Internal Medicine Pulmonary Disease
DX: I27.20 Pulmonary hypertension, unspecified (principal); J45.909 Unspecified asthma, uncomplicated; D84.9 Immunodeficiency, unspecified
CPT/HCPCS: 36415; 83880

== ENCOUNTER → 2020-07-20 15:14 | Outpatient (CLI) | payer MEDICARE, OTHER, SELFPAY ==
[2020-07-13 11:16] VITALS: BMI 44.9
== END ==
PROVIDERS: PCP Family Medicine Geriatric Medicine; Visit Provider Internal Medicine Pulmonary Disease
DX: R06.00 Dyspnea, unspecified (principal); I27.20 Pulmonary hypertension, unspecified; J45.909 Unspecified asthma, uncomplicated; D84.9 Immunodeficiency, unspecified
CPT/HCPCS: 36415; 83880; 87635; C9803; U0005; U0003

== ENCOUNTER 2020-07-31 07:24 | Outpatient (RCR) | payer MEDICARE, OTHER, SELFPAY ==
[2020-08-03] MEDS: COVID-19 VACC, MRNA(PFIZER)/PF 30 MCG/0.3 ML SYRINGE IM (16:21)
[2020-08-24] MEDS: COVID-19 VACC, MRNA(PFIZER)/PF 30 MCG/0.3 ML SYRINGE IM (16:17)
== END 2020-10-30 23:59 ==
LOC: IMMUN 07:24
PROVIDERS: PCP Family Medicine Geriatric Medicine; Visit Provider Family Medicine
DX: Z23 Encounter for immunization (principal)
CPT/HCPCS: 0001A; 0002A; 91300

== ENCOUNTER → 2020-08-27 12:37 | Outpatient (CLI) | payer MEDICARE, OTHER, SELFPAY ==
--- NOTE | 2020-08-27 13:08 | ECHOCS_ITS ---
Reason For Study: PHTN, PEDAL EDEMA Procedure This was a 2D Doppler, Color Flow transthoracic echocardiogram. The study was technically difficult. Due to body habitus. PT unable to lie down for exam due to coughing and BLE EDEMA. Contrast injection was performed. Exam performed in department. Left Ventricle Normal LV size. Mild concentric left ventricular hypertrophy. Left ventricular systolic function is normal. The estimated ejection fraction is 60 %. Stage 1 diastolic dysfunction. No regional wall motion abnormalities noted. Right Ventricle Normal RV size. Normal systolic function. Tricuspid Valve Normal tricuspid valve. Mild (1+) tricuspid valve insufficiency. Pulmonary artery systolic pressure is 28 mmHg. Pulmonic Valve The pulmonic valve is not well visualized. Great Vessels Normal aortic root. The pulmonary artery is normal size. Normal inferior vena cava. Pericardium/Pleural No pericardial effusion. Medication Diluted definity 3.0ml given slow IV push to enhance endocardial definition. MMode/2D Measurements & Calculations LVIDd: 5.9 cm IVSd: 1.4 cm Ao root diam: 3.3 cm LVIDs: 3.7 cm LVPWd: 1.3 cm RVDd: 3.5 cm FS: 37.5 % LAV(MOD-bp): 105.5 ml SV(MOD-sp4): 115.7 ml LVAd ap4: 41.0 cm2 LAV(MOD-bp) Indexed: 46.7 ml/m2 EDV(MOD-sp4): 159.8 ml LAV(MOD-sp2): 101.5 ml EDV(sp4-el): 166.1 ml LAV(MOD-sp4): 108.3 ml LVAs ap4: 20.3 cm2 ESV(MOD-sp4): 44.1 ml ESV(sp4-el): 45.1 ml EF(MOD-sp4): 72.4 % EF(sp4-el): 72.9 % SV(sp4-el): 121.1 ml LA dimension(2D): 3.4 cm LA A4 area: 30.2 cm2 RA A4 area: 17.4 cm2 Time Measurements MV dec time: 0.21 sec Doppler Measurements & Calculations MV E max ralph: 73.7 cm/sec Lat Peak E' Ralph: 7.7 cm/sec Med Peak E' Ralph: 10.0 cm/sec MV A max ralph: 112.4 cm/sec E/E' lat: 9.6 E/E' med: 7.4 MV E/A: 0.66 Ao V2 max: 152.6 cm/sec LV V1 max: 129.5 cm/sec PA V2 max: 115.4 cm/sec Ao max P.3 mmHg LV V1 max P.7 mmHg TR max ralph: 246.0 cm/sec TR max P.2 mmHg ECHO/Echo Complete W/ Contrast Interpretation Summary Normal LV size. Mild concentric left ventricular hypertrophy. Left ventricular systolic function is normal. The estimated ejection fraction is 60 %. Stage 1 diastolic dysfunction. Pulmonary artery systolic pressure is 28 mmHg. Contrast injection was performed. Ordering Physician: Kirill Banks Referring Physician: Julian Brand Chi Performed By: Stacy Wan, KEYANA, RVT
[2020-08-27 13:54] LABS: BNP,B-Type NATRIURETIC PEPTIDE 83.9 pg/mL (0-100)
== END ==
PROVIDERS: PCP Family Medicine Geriatric Medicine; Referring Provider Internal Medicine Pulmonary Disease; Visit Provider Internal Medicine Pulmonary Disease
DX: I27.20 Pulmonary hypertension, unspecified (principal); R60.0 Localized edema; R06.00 Dyspnea, unspecified
CPT/HCPCS: 36415; 83880; 93306; Q9957; A4216; C8929

== ENCOUNTER 2020-09-11 14:23 | Outpatient (RCR) | payer MEDICARE, OTHER, SELFPAY ==
[2020-09-06 14:39] VITALS: BMI 48.2
[2020-09-11 18:38] LABS: Anion Gap 4 (5-15); BUN 15 mg/dL (7-18); BUN/Creat Ratio 15.4 RATIO (10-20); CRP 5.75 mg/L (0.0-3.0); Calcium,Total 8.9 mg/dL (8.5-10.1); Chloride 100 mmol/L (98-107); Creatinine, Serum 0.97 mg/dL (0.55-1.02); EST Glomerular Filtration Rate 61 mL/min (>60); Est Glom Filt Rate - Afr Amer 74 mL/min (>60); Glucose 107 mg/dL (74-106); Magnesium 2.1 mg/dL (1.6-2.6); Potassium 3.8 mmol/L (3.5-5.1); Sodium Level 139 mmol/L (136-145)
[2020-09-12 10:41] LABS: Hepatitis B Surface Antigen Non-Reactive (Nonreactive)
[2020-09-18 05:07] LABS: QNTFERON TB Mitogen Value 0.12 IU/mL (.); QNTFERON TB Nil Value 0 IU/mL (.); QNTFERON TB1+ Ag Value 0 IU/mL (.); QNTFERON TB2+ Ag Value 0 IU/mL (.)
[2020-09-18 11:52] LABS: QNTIFERON TB Positive Criteria Indeterminate (Negative)
== END 2020-09-11 18:00 | disposition home or self-care (01) ==
LOC: MTLAB 14:23
PROVIDERS: PCP Family Medicine Geriatric Medicine; Referring Provider Internal Medicine Gastroenterology; Visit Provider Internal Medicine Gastroenterology
DX: K50.00 Crohn's disease of small intestine without complications (principal); K57.92 Diverticulitis of intestine, part unspecified, without perforation or abscess without bleeding
CPT/HCPCS: 36415; 80048; 83735; 86140; 86480; 87340

== ENCOUNTER 2020-09-11 15:30 | Outpatient (RCR) | payer MEDICARE, OTHER, SELFPAY ==
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
--- NOTE | 2020-09-03 10:44 | HP.PTREVAL ---
Heike Roque, EMERALD-C, It has been my pleasure to treat RAFIQ ALCANTAR over the last 9 visits for lumbar DDD. Please see the progress note below for an update on the physical therapy plan of care! Subjective: Patient reports that she is really tired, and is sick and tired of being tired. By the time she gets in/out of the pool she is exhausted and winded. She now has A-fib and she now has a lot of fluid. 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 She is on pumps 3x a day which feels good but she does not feel like its helping. She wants to strengthen her lumbar spine and quad. She wants to be able to get up easier and getting her legs up onto the couch. Does have pain in the back but none in the legs. Medication helps the back pain. Would like to continue coming to the pool. She is getting out of a chair much easier but its still really hard. Objective/Function: Posture: FH, RS- increased kyphosis- can correct with verbal cues but does not maintain. Observation: Significant lymphedema in bilateral LE. Gait: Not currently wearing shoes due to edema in her legs bilaterally- decreased speed, with cane on R side. poor heel too pattern, poor endurance and was SOB. Unable to walk more than 50 feet. w/c back to treatment room. HR/TR: limited with BUE support. Strength: hip:2+/5 , knee: 3-/5, ankle: 3-/5. ROM: hip/knee/ankle: WFL with edema present Plan Plan: *Progress all into faster speeds. AT- increase strength, balance, and functional mobility. 09/03/2020: Continue to progress towards goals in an aquatic setting- 1x a week then 2x- every other week (to cut down on missed apts). Goals Goal 1:: Pt will be I with HEP and progression Goal Time Frame: 4-6 Weeks Goal Progress: Progressing Goal 2:: Pt will demonstrate increased strength to 4/5 in LE in order to perform I functional mobility Goal Time Frame: 4-6 Weeks Goal Progress: Progressing Goal 3:: Pt will report 1/10 pain for 1 week in order to promote increased I with ADLs. Goal Time Frame: 4-6 Weeks Goal Progress: Progressing Anticipated Interventions Patient/Client Instruction: Educate patient on: Plan of Care For the Purpose of:: To improve muscle performance and motor function Therapeutic Exercise to Include: Strength training, Endurance training, Balance training, Coordination, Agility training, Body mechanics, Postural training, Flexibilty training, Gait and locomotor training, In an aquatic setting, Active ROM, Dynamic Lumbar Stabilization For the Purpose of:: To improve muscle performance and motor function, To increase tolerance to activity/condition/position Please do not hesitate to contact me at [phone] by phone or if you have questions or concerns regarding this new plan of care! Sincerely, MARQUES GalindoT
== END 2020-09-11 19:00 | disposition home or self-care (01) ==
LOC: PT 15:30
PROVIDERS: PCP Family Medicine Geriatric Medicine; Referring Provider Nurse Practitioner Family; Visit Provider Nurse Practitioner Family
DX: S32.011D Stable burst fracture of first lumbar vertebra, subsequent encounter for fracture with routine healing (principal); S32.021D Stable burst fracture of second lumbar vertebra, subsequent encounter for fracture with routine healing; S32.031D Stable burst fracture of third lumbar vertebra, subsequent encounter for fracture with routine healing; X58.XXXD Exposure to other specified factors, subsequent encounter; M51.37 Other intervertebral disc degeneration, lumbosacral region; I89.0 Lymphedema, not elsewhere classified
CPT/HCPCS: 97113; 97162; 97164; 97166; 97530

== ENCOUNTER 2020-10-09 11:15 | Outpatient (RCR) | payer MEDICARE, OTHER, SELFPAY ==
[2020-09-06 14:39] VITALS: BMI 48.2
[2020-09-28 11:37] VITALS: BP 153/76; PULSE 103; TEMP 36.2; BMI 48.2
--- NOTE | 2020-09-28 14:03 | HP.PCM_ITS ---
History of Present Illness Date of Service: 09/28/20 Chief Complaint: Severe swelling, edema, and lymphedema of both lower extr emities History of Wound: This is a 64-year-old female with a history of chronic swelling, edema, and lymphedema in her lower extremities. She claims to have initially developed severe swelling, edema, and lymphedema in her lower extremities in September 2015. At that time, she was treated aggressively by conservative measures, which included pool therapy. Patient indicates that the swelling, edema, and lymphedema subsequently resolved. Since October 2019, however, the swelling, edema, and lymphedema in the patient's lower extremities has recurred. It has persisted since its most recent onset, and has been associated with the development of subcutaneous ulcerations beginning in Jan 2020. Her initial ulcerations healed in April 2020 and [facility]. She had subsequent development of new ulcerations in May 2020 and began using Promogran to the ulcers daily with good tolerance and good response. Her wounds healed in June 2020 and she was discharged from the wound healing center with orders for aquatic therapy and lymphedema therapy. She reports she attended 2 visits at the lymphedema clinic. She had been instructed to obtain compression for her bilateral lower extremities, but did not do so following her initial lymphedema clinic visit, and states she was scolded for not doing so. She reports she does plan to obtain these, and she was measured at the lymphedema clinic for the appropriate sizing. Her legs began weeping again approximately 2 weeks ago. She does not have any active ulcers at this time. The patient is morbidly obese. She sleeps in a recliner. She is not active, ambulating only in limited fashion using a cane. She sits idly throughout the day. She was performing aquatic therapy until her legs began seeping again. Patient suffers from multiple pre-existing medical problems, as detailed above. Many of these problems are, in part, indirectly related to the patient's lower extremity swelling and edema. She has been referred by her certification officer for evaluation by Dr. Sarah (vascular) on 10/10/2020. The patient denies any fever, chills, nausea, vomiting, or diarrhea. Denies any increasing pain, redness, swelling, or purulent/malodorous drainage from affected area. She states the redness and pain in her right lower extremity have improved since her visit to the emergency department. [facility] Medical History (Updated 09/28/20 @ 14:15 by Heike Roque MEDICAL SPECIALIST, MEDICAL SPECIALIST-C) Anemia Arthritis Asthma Back problem Bone fracture Chronic bronchitis COPD (chronic obstructive pulmonary disease) Crohns disease Fibromyalgia Gallstones Gastrointestinal distress GERD (gastroesophageal reflux disease) History of blood transfusion History of echocardiogram HTN (hypertension) Immunodeficiency disorder, selective immunoglobulin OA (osteoarthritis) SARAHY (obstructive sleep apnea) Osteopenia Osteoporosis Pancreatic divisum PNE Pulmonary HTN Seasonal allergies Skin cancer Vitamin deficiency Home Medications erythromycin 1 applic OPHTHALMIC QHS 06/20/14 [History Last Taken 02/02/20] morphine 15 mg PO TID 10/05/18 [History Last Taken 02/03/20] digoxin 125 mcg (0.125 mg) tablet 125 mcg PO DAILY #90 tab 02/23/20 [Rx Last Taken Unknown] rivaroxaban 20 mg PO DAILY 03/21/20 [History Last Taken Unknown] bumetanide 2 mg PO BID 03/27/20 [History Last Taken 05/15/20 11:41] amiodarone 200 mg tablet 100 mg PO DAILY #90 tab 05/29/20 [Rx Last Taken Unknown] levothyroxine 25 mcg tablet 25 mcg PO DAILY tab 05/29/20 [History Last Taken Unknown] pantoprazole 40 mg tablet,delayed release 40 mg PO DAILY PRN 05/29/20 [History Last Taken Unknown] prednisone 20 mg tablet 10 mg PO DAILY@0800 tab 05/29/20 [History Last Taken Unknown] budesonide-formoterol HFA 160 mcg-4.5 mcg/actuation aerosol inhaler 2 puff INHALATION BID 09/06/20 [History Last Taken Unknown] diphenoxylate-atropine 2.5 mg-0.025 mg tablet 6 tablet PO DAILY tablet 09/06/20 [History Last Taken Unknown] potassium chloride 20 mEq tablet,extended release(part/cryst) 20 meq PO DAILY PRN tablet 09/06/20 [History Last Taken Unknown] sildenafil (pulm.hypertension) 20 mg tablet 10 mg PO TID tablet 09/06/20 [History Last Taken Unknown] Allergy/AdvReac Type Severity Reaction Status Date / Time codeine Allergy Severe ANGIOEDEMA/LEG Verified 09/06/20 14:40 SWELLING Penicillins Allergy Severe ANGIOEDEMA/LEG Verified 09/06/20 14:40 SWELLING Sulfa (Sulfonamide Allergy Severe ANGIOEDEMA/LEG Verified 09/06/20 14:40 Antibiotics) SWELLING sulfasalazine Allergy Severe ANGIOEDEMA/LEG Verified 09/06/20 14:40 [From Azulfidine] SWELLING Family History Father Anemia Heart disease Hypertension CVA (cerebral vascular accident) Mother Arthritis Cancer Osteoporosis Sister Arthritis Lung disease Surgical History History of kyphoplasty (~07/07/16) History of left knee replacement History of pneumonectomy History of resection of small bowel History of right heart catheterization (RHC) (~05/09/16) History of tonsillectomy History of total hysterectomy with bilateral salpingo-oophorectomy (BSO) Leg fracture, right Social History (Updated 09/06/20 @ 15:[address] 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 Constitutional Constitutional: Denies chills, fever(s) or night sweats Eyes Eyes: Denies change in vision or double vision ENT HEENT: Denies lip swelling or tongue swelling Cardiovascular Cardiovascular: Reports edema Respiratory/Chest Respiratory/Chest: Reports shortness of breath with exertion Gastrointestinal Gastrointestinal: Denies diarrhea, nausea or vomiting Genitourinary Genitourinary: Denies dysuria or hematuria Musculoskeletal Musculoskeletal: Denies abnormal gait, extremity pain, muscle weakness, numbness or tingling Integumentary Integumentary: Reports wounds; Denies rash Neurologic Neurologic: Denies abnormal gait, abnormal speech or focal weakness Endocrine Endocrinology: Denies cold intolerance, heat intolerance, polydipsia or polyuria Hematologic/Lymphatic Hematologic/Lymphatic: Denies easy bleeding or easy bruising Vital Signs Vital Signs Vital Signs: 09/28/20 11:37 Temperature 97.2 F L Temperature Source Temporal Pulse Rate 103 H Blood Pressure 153/76 H Blood Pressure Mean 101 Blood Pressure Source Monitor Blood Pressure Position Semi-Fowlers Blood Pressure Location Left Arm Physical Exam Const alert, no apparent distress and healthy appearing General Appearance: cooperative, comfortable and well kempt HEENT Head and Scalp: normocephalic and atraumatic Eyes EOMs intact bilaterally Neck supple and no JVD Resp normal respiratory effort, normal air movement and no use of accessory muscles Auscultation: clear to auscultation bilaterally; Negative for crackles, rales, rhonchi or wheezes Cardio regular rate and regular rhythm GI normal to inspection, nondistended, normoactive bowel sounds Extremity normal capillary refill and no calf tenderness General Extremity: edema bilateral lower extremity Details: severe; Negative for clubbing or cyanosis Skin no wounds Skin Narrative: Weeping of bilateral lower extremities Lesions: no lesions Rashes: no rashes Neuro oriented x3, moves all extremities and no focal motor deficits Psych mental status grossly normal, cooperative and affect normal Debridement Note Debridement Note Post-Debridement Measurements and Additional Note: Post-Debridement Measurements/Treatment - Nurse 1 - General Ulcer Assessment Start: 09/28/20 11:34 Freq: Status: Active Protocol: JUAN ALBERTO Activity Type Activity Date Activity User E-Sign Co-Sign Detail Recorded Client Recorded Date Recorded By Document 09/28/20 11:37 MICHAEL [id number] 09/28/20 11:40 MICHAEL 09/28/20 11:37 - Today's Visit Information Type of service Initial Visit Arrival Mode Ambulatory Patient Identification Verified (Name & Yes ) Height and Weight Body Mass Index (BMI) 48.2 BMI Classification Obese Vital Signs Temperature (97.8 F-99.1 F) 97.2 F L Temperature Source Temporal Pulse Rate (60-100) 103 H Pulse Location Monitor Blood Pressure (90/60-120/80) 153/76 H Blood Pressure Mean 101 Source Monitor Position Semi-Fowlers Blood Pressure Location Left Arm History Since Last Visit- (Skip if this is Patient's initial visit) Have you changed medications since your No last visit? Any new allergies or adverse reactions No Had a fall/change in ADL's that may No increase risk of falls Signs or symptoms of abuse and/or No neglect since last visit Have you been in the hospital since your No last visit? Has dressing in place as prescribed No Has compression in place as prescribed Yes Has offloadiing in place as prescribed N/A Experienced any changes in pain level or No management Left Footwear Slipper Right Footwear Slipper Pain Scale: 0-10 Numeric Is Patient Pain Free? Yes WC - Nurse 1 - General Ulcer Measurement Start: 09/28/20 11:34 Freq: Status: Active Protocol: Activity Type Activity Date Activity User E-Sign Co-Sign Detail Recorded Client Recorded Date Recorded By Document 09/28/20 11:37 MICHAEL [id number] 09/28/20 11:40 MICHAEL 09/28/20 11:37 Wound Center Nurse 1 Right Calf (cm) 75 Right Ankle (cm) 44 Left Calf (cm) 76 Left Ankle (cm) 47 No debridement was completed: No debridement was completed today Assessment & Plan Assessment/Plan (1) Leg edema: (2) Lymphedema of lower extremity: QUALIFIERS: Laterality: bilateral Qualified Code(s): I89.0 - Lymphedema, not elsewhere classified (3) Chronic venous insufficiency: (4) Morbid obesity with BMI of 40.0-44.9, adult: (5) A-fib: QUALIFIERS: Atrial fibrillation type: paroxysmal Qualified Code(s): I48.0 - Paroxysmal atrial fibrillation (6) Hypothyroidism: (7) Chronic steroid use: (8) Pulmonary hypertension: PLAN: Bilateral Unna boots applied to the lower extremities today with super sorb dressings beneath for absorption of weeping fluid. She is instructed to obtain compression as previously directed by the lymphedema clinic. She is instructed to follow-up with the lymphedema clinic for continued management. I will have her resume aquatic therapy once her bilateral lower extremity weeping has resolved, in efforts to increase physical activity and reduce edema and improve overall wellness. She should keep planned appointment with Dr. Sarah (vascular) on 10/10/2020. She is instructed to avoid prolonged standing and/or dangling of legs. When seated, feet should be elevated at chest level. Frequent ambulation is encouraged. I will have her follow-up on Tuesdays and Fridays for nurse visits for changing of Unna boots. I will have her return for reassessment with the provider on 10/12/2020. Charges/Coding Visit Charges Office Visits / Consults: 34035 OV L4 Est
[2020-10-05 12:21] VITALS: RESP 24; TEMP 35.9; BMI 48.2
--- NOTE | 2020-10-09 11:44 | WC ---
PT HERE FOR NURSE VISIT. VITALS OBTAINED BP 161/77 W/ MONITOR, RADIAL PULSE 98, R 20, T 98. PT REFUSED APPLICATION OF UNNA BOOTS. HAD LG BANDAIDS TO SMALL SEEPING AREAS BLE. PT DID NOT FEEL THE DRSGS NEEDED CHANGED YET. MOSTLY C/O NEW ONSET FATIGUE AND SOB. THOUGHT SHE WAS SEEING THE DOCTOR TODAY. ADVISED HER TO F/U WITH URGENT CARE/EMERGENCY RM, OR PCP FOR NEW SYMPTOMS. PT STATES SHE HAS APPT W/ PCP TOMORROW AM. DISPENSARY TECHNICIAN DARREN UPDATED ON REFUSAL FOR UNNAS. LEGS REMAIN LARGELY EDEMATOUS W/ MEASUREMENTS R- 72/48 AND L 65.4/57.5
== END 2020-10-22 23:59 ==
LOC: WC 11:15
PROVIDERS: PCP Family Medicine Geriatric Medicine; Visit Provider Nurse Practitioner Family
DX: I89.0 Lymphedema, not elsewhere classified (principal); M79.89 Other specified soft tissue disorders; R60.0 Localized edema; E66.01 Morbid (severe) obesity due to excess calories; M19.90 Unspecified osteoarthritis, unspecified site; J44.9 Chronic obstructive pulmonary disease, unspecified; K50.90 Crohn's disease, unspecified, without complications; M79.7 Fibromyalgia; K21.9 Gastro-esophageal reflux disease without esophagitis; I10 Essential (primary) hypertension; G47.33 Obstructive sleep apnea (adult) (pediatric); I27.20 Pulmonary hypertension, unspecified; I48.0 Paroxysmal atrial fibrillation; I87.2 Venous insufficiency (chronic) (peripheral); E03.9 Hypothyroidism, unspecified; Z79.01 Long term (current) use of anticoagulants; Z79.899 Other long term (current) drug therapy; Z87.891 Personal history of nicotine dependence; Z68.42 Body mass index [BMI] 45.0-49.9, adult; Z79.52 Long term (current) use of systemic steroids
CPT/HCPCS: 29580; 99212; 99213; G0463

== ENCOUNTER → 2020-10-10 11:58 | Outpatient (CLI) | payer MEDICARE, OTHER, SELFPAY ==
[2020-10-05 12:21] VITALS: BMI 48.2
[2020-10-10 12:47] LABS: Absolute Lymphocyte Count 0.88 X10^3/uL (0.83-4.51); Absolute Neutrophil Count 12.3 X10^3/uL (2.0-7.7); Basophil# 0.09 X10^3/uL; Basophil% 0.6 % (0-1); Eosinophil# 0.04 X10^3/uL; Eosinophils% 0.3 % (0-5); Hematocrit 35.5 % (37-47); Lymphocyte # 0.88 X10^3/ul (0.83-4.51); Lymphocyte % 6.3 % (19-41); Mean Corp Hgb Conc 28.2 g/dL (32-36); Mean Corpuscular Hgb 26.1 pg (27.0-32.0); Mean Corpuscular Volume 92.7 fL (81-99); Mean Platelet Vol. 9.4 fl (6.2-12.0); Monocyte# 0.63 X10^3/uL; Monocyte% 4.5 % (0-10); NRBC Flagged by Analyzer 0 % (0-5); Neutrophil # 12.29 X10^3/uL (2.7-7.7); Neutrophil % 87.7 % (47-70); Platelet Count 595 K/mm3 (150-450); RBC Distribution Width CV 14.6 % (11.6-14.6); RBC Distribution Width SD 48.9 fl (35.1-43.9); Red Blood Count 3.83 M/mm3 (4.2-5.4)
[2020-10-10 13:02] LABS: Vitamin D,25 Hydroxy 24.8 ng/mL
[2020-10-10 13:31] LABS: ALB/GLOB Ratio 1.1 RATIO (0.9-2.4); AST(SGOT) 8 U/L (15-37); Alanine Aminotransfer ALT/SGPT 18 U/L (13-56); Albumin, Serum 3.2 g/dL (3.2-5.0); Alkaline Phosphatase 68 U/L (45-117); Anion Gap 4 (5-15); BUN 15 mg/dL (7-18); BUN/Creat Ratio 13.9 RATIO (10-20); Calcium,Total 9.3 mg/dL (8.5-10.1); Chloride 101 mmol/L (98-107); Creatinine, Serum 1.08 mg/dL (0.55-1.02); EST Glomerular Filtration Rate 54 mL/min (>60); Est Glom Filt Rate - Afr Amer 65 mL/min (>60); Globulin 2.9 g/dL (2.2-4.2); Glucose 103 mg/dL (74-106); Potassium 4.1 mmol/L (3.5-5.1); Protein, Total 6.1 g/dL (6.4-8.2); Sodium Level 139 mmol/L (136-145); Thyroid Stim Hormone (TSH) 4.32 uIU/mL (0.358-3.74)
== END ==
PROVIDERS: PCP Family Medicine Geriatric Medicine; Visit Provider Family Medicine Geriatric Medicine
DX: E55.9 Vitamin D deficiency, unspecified (principal); I10 Essential (primary) hypertension
CPT/HCPCS: 36415; 80053; 82306; 84443; 85025

== ENCOUNTER 2020-10-19 14:57 | Inpatient (IN) | payer MEDICARE, OTHER, SELFPAY ==
[2020-10-05 12:21] VITALS: BMI 48.2
[2020-10-19] VITALS (8 sets, daily range): BP systolic 157–176; BP diastolic 89–98; PULSE 76–86; RESP 16–21; TEMP 36.1–36.7; O2SAT 94–100; BMI 49.1; BMI 50.6
--- NOTE | 2020-10-19 15:49 | EKG12_ITS ---
Test Reason : Blood Pressure : / mmHG Vent. Rate : 081 BPM Atrial Rate : 081 BPM P-R Int : 144 ms QRS Dur : 080 ms QT Int : 358 ms P-R-T Axes : 034 046 035 degrees QTc Int : 415 ms Normal sinus rhythm Normal ECG Confirmed by NANCI STEARNS, RUBIN ([id number]), digital editor ADRIANE ANTUNEZ ([id number]) on 10/23/2020 2:00:03 PM Referred By: RAIZA/ROBBI Confirmed By:RUBIN CHRISTINE MD
--- NOTE | 2020-10-19 15:50 | RAD_ITS ---
STUDY: X-RAY CHEST REASON FOR EXAM: Female, 64 years old. sob TECHNIQUE: Single AP portable view of the chest. COMPARISON: 02/03/2020 FINDINGS: Right internal jugular chest port which is unchanged Alveolar opacity in the mid right lung consistent with right upper lobe pneumonia. Elevated right hemidiaphragm which is unchanged. There is moderate cardiac enlargement. Normal mediastinum and irena. Normal visualized pulmonary arteries. Normal visualized aortic arch and descending thoracic aorta. Normal visualized thoracic spine. Normal visualized ribs, clavicles, and shoulders. There is no demonstrated abnormality of the visualized soft tissue structures of the upper abdomen. RAD/Chest 1 View (Portable) IMPRESSION: Right upper lobe pneumonia. Electronically Signed: Dino Augustin MD at 16:19 EDT Tel , Service support ,
--- NOTE | 2020-10-19 15:50 | ED.VIS.DYS ---
HPI History of Present Illness Chief Complaint: Shortness of Breath Informant: patient Onset/Context/Timing Onset: Month(s) (1) Context: gradual Timing: Continuous and Waxes and wanes Quality: Positive for Dyspnea on exertion and Wheezing Current Severity: Mild Maximum Severity: Severe Worsened by: Exertion and Coughing Relieved by: Rest and Albuterol Associated Symptoms cough Chest Pain: Positive for None Narrative Narrative: Patient has longstanding COPD without the need for home oxygen, she was diagnosed with rapid A. fib 1 or 2 months ago, and about 4 weeks ago she was placed on new medications for that and since then she feels like she has had dyspnea with very little exertion, fatigue with very little exertion, and a worsening cough that is not letting up. She denies any chest discomfort. Her cough is nonproductive. She does not have pleuritic discomfort in her thorax. She denies any fevers or chills. She has had no contact with anyone with COVID-19 that she knows of, she has never had COVID-19, and she was vaccinated with the second injection being about 4 weeks ago. She had a home health nurse initiate evaluation today, and she desatted her oxygenation with very little exertion down to 60%, and for that reason she felt she should be evaluated in the ER today. The patient feels that her symptoms have been stable for the last 4 weeks. In addition, she has Crohn's disease and has been on high-dose prednisone at 80 mg for over a year, and since February last year has been tapering down to a steady dose of 10 mg. She has developed significant lymphedema in both of her lower extremities that has been constant for 6 or 7 months at least, and she is having trouble getting around because of the amount of swelling as well, hence the home health nurse coming. [facility] Medical History (Updated 10/19/20 @ 17:[address] Elvis Reina MD) Anemia Arthritis Asthma Back problem Bone fracture Chronic bronchitis COPD (chronic obstructive pulmonary disease) Crohns disease Fibromyalgia Gallstones Gastrointestinal distress GERD (gastroesophageal reflux disease) History of blood transfusion History of echocardiogram HTN (hypertension) Immunodeficiency disorder, selective immunoglobulin OA (osteoarthritis) SARAHY (obstructive sleep apnea) Osteopenia Osteoporosis Pancreatic divisum PNE Pulmonary HTN Seasonal allergies Skin cancer Vitamin deficiency Home Medications erythromycin 1 applic OPHTHALMIC QHS 06/20/14 [History Last Taken 02/02/20] morphine 15 mg PO TID 10/05/18 [History Last Taken 02/03/20] digoxin 125 mcg (0.125 mg) tablet 125 mcg PO DAILY #90 tab 02/23/20 [Rx Last Taken Unknown] rivaroxaban 20 mg PO DAILY 03/21/20 [History Last Taken Unknown] bumetanide 2 mg PO BID 03/27/20 [History Last Taken 05/15/20 11:41] amiodarone 200 mg tablet 100 mg PO DAILY #90 tab 05/29/20 [Rx Last Taken Unknown] levothyroxine 25 mcg tablet 25 mcg PO DAILY tab 05/29/20 [History Last Taken Unknown] pantoprazole 40 mg tablet,delayed release 40 mg PO DAILY PRN 05/29/20 [History Last Taken Unknown] prednisone 20 mg tablet 10 mg PO DAILY@0800 tab 05/29/20 [History Last Taken Unknown] budesonide-formoterol HFA 160 mcg-4.5 mcg/actuation aerosol inhaler 2 puff INHALATION BID 09/06/20 [History Last Taken Unknown] diphenoxylate-atropine 2.5 mg-0.025 mg tablet 6 tablet PO DAILY tablet 09/06/20 [History Last Taken Unknown] potassium chloride 20 mEq tablet,extended release(part/cryst) 20 meq PO DAILY tablet 09/06/20 [History Last Taken Unknown] sildenafil (pulm.hypertension) 20 mg tablet 10 mg PO TID tablet 09/06/20 [History Last Taken Unknown] Allergy/AdvReac Type Severity Reaction Status Date / Time codeine Allergy Severe ANGIOEDEMA/LEG Verified 09/06/20 14:40 SWELLING Penicillins Allergy Severe ANGIOEDEMA/LEG Verified 09/06/20 14:40 SWELLING Sulfa (Sulfonamide Allergy Severe ANGIOEDEMA/LEG Verified 09/06/20 14:40 Antibiotics) SWELLING sulfasalazine Allergy Severe ANGIOEDEMA/LEG Verified 09/06/20 14:40 [From Azulfidine] SWELLING Family History Father Anemia Heart disease Hypertension CVA (cerebral vascular accident) Mother Arthritis Cancer Osteoporosis Sister Arthritis Lung disease Surgical History History of kyphoplasty (~07/07/16) History of left knee replacement History of pneumonectomy History of resection of small bowel History of right heart catheterization (RHC) (~05/09/16) History of tonsillectomy History of total hysterectomy with bilateral salpingo-oophorectomy (BSO) Leg fracture, right Social History Smoking Status: Former smoker second hand exposure: No alcohol intake: current alcohol intake frequency: other details: SOCIAL substance use type: does not use what type of physical activity do you participate in: none seatbelt use: always 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 ROS ED Constitutional Constitutional ED: Denies chills or fever(s) Eyes Eyes: Denies change in vision or diplopia ENT ENT ED: Denies rhinorrhea or sore throat Cardiovascular Cardiovascular: Reports as per HPI and edema; Denies chest pain or palpitations Respiratory/Chest Respiratory/Chest: Reports as per HPI, cough and dyspnea Gastrointestinal Gastrointestinal: Denies abdominal pain, diarrhea, nausea or vomiting Genitourinary Genitourinary ED: Denies dysuria or hematuria Musculoskeletal Musculoskeletal: Denies back pain, extremity pain or neck pain Integumentary Denies abscess or rash Neurologic Neurologic: Denies headache(s), paresthesias or weakness Psychiatric Psychiatric: Denies anxiety or suicidal thoughts EXAM Physical Exam Const Vital Signs: 10/19/20 14:58 10/19/20 15:15 10/19/20 15:16 Temperature 97.6 F L 97.6 F L Temperature Source Temporal Temporal Pulse Rate 86 83 Respiratory Rate 17 16 Respiratory Effort Short of Breath Labored Respiratory Depth Normal Respiratory Pattern Normal Blood Pressure 167/94 H 167/94 H Blood Pressure Mean 118 118 Pulse Ox 96 99 Oxygen Delivery Method Room Air Nasal Cannula Nasal Cannula Oxygen Flow Rate (L/min) 2 2 10/19/20 17:01 Temperature 97.6 F L Temperature Source Temporal Pulse Rate 76 Respiratory Rate 21 H Respiratory Effort Respiratory Depth Respiratory Pattern Blood Pressure 160/89 H Blood Pressure Mean 112 Pulse Ox 100 Oxygen Delivery Method Nasal Cannula Oxygen Flow Rate (L/min) 2 Positive well nourished and well developed General Appearance ED: well developed and NAD HEENT Reports moist mucous membranes normocephalic and atraumatic Eyes PERRL and EOMs intact bilaterally Neck full ROM and supple Resp normal respiratory effort Resp Narrative: Diminished breath sounds throughout symmetrically. End expiratory wheezes bilaterally, mild. No rales or rhonchi heard. Effort and Inspection: Negative for abnormal respiratory pattern or retractions Cardio regular rate, regular rhythm and no murmurs GI non-tender and non-distended Auscultation: normoactive bowel sounds Palpation: soft Back/Spine no CVA tenderness General Back: other FROM Extremity Extremity Narrative: Severe lymphedema both lower extremities, symmetric without signs of acute infection. No calf tenderness. General Extremety ED: Yes edema; Negative for pulses abnormal or tenderness General Extremity: edema; Negative for pulses abnormal Neuro oriented x3, CN's II-XII intact bilaterally and no sensory deficits noted Sensorium / Orientation: awake and alert Motor Exam: strength 5/5 throughout Skin no rashes or lesions noted and no wounds MDM MDM MDM Narrative Medical decision making narrative: Patient declined nebulizer treatment. With oxygen she is maintaining oxygenation well. When she first arrived her oxygenation was 80% on room air but she recovered quickly. As below, work-up shows pneumonia. This is likely contributing to her symptoms. COVID-19 test was negative, as expected. She does not have home oxygen at home, and I believe she requires admission for safety because of the desaturation with very little exertion or movement. Blood cultures and lactate obtained prior to starting Levaquin, as she declares a potentially life-threatening allergy to penicillin. Lab Data Attestation: I reviewed the patient's lab results. Labs: Laboratory Results - last 24 hr 10/19/20 10/19/20 10/19/20 15:30 15:30 15:30 WBC 10.6 RBC 3.87 L Hgb 9.8 L Hct 34.8 L MCV 89.9 MCH 25.3 L MCHC 28.2 L RDW Std Deviation 47.8 H RDW Coeff of Curtis 14.6 Plt Count 598 H MPV 9.1 Immature Gran % (Auto) 0.600 Neut % (Auto) 63.6 Lymph % (Auto) 24.4 Bee % (Auto) 8.4 Eos % (Auto) 2.2 Baso % (Auto) 0.8 Absolute Neuts (auto) 6.7 Absolute Lymphs (auto) 2.57 Nucleated RBC % 0 Sodium 139 Potassium 3.8 Chloride 101 Carbon Dioxide 34.0 H Anion Gap 4 L BUN 14 Creatinine 0.91 Estim Creat Clear Calc 54.72 Est GFR (MDRD) Af Amer 79 Est GFR (MDRD) Non-Af 66 BUN/Creatinine Ratio 15.4 Glucose 95 Calcium 8.7 Troponin I < 0.015 B-Natriuretic Peptide 98.6 Radiography Chest X-Ray - ED: 1 View, Read by ED Physician and Right Infiltrate Diagnostic Testing: Radiology Impression Chest X-Ray 10/19/20 15:50 IMPRESSION: Right upper lobe pneumonia. Electronically Signed: Dino Augustin MD at 16:19 EDT Tel , Service support , EKG Initial EKG: Attestation: I personally reviewed and interpreted this EKG as follows: Interpretation: Sinus Rhythm and No Acute Injury Pattern Comments: Normal EKG Discharge Plan Dx/Rx/DC Orders Clinical Impression: Pneumonia, Acute exacerbation of chronic obstructive pulmonary disease, Hypoxemia Disposition Disposition: Acute Care [facility]
[2020-10-19 16:11] LABS: Absolute Lymphocyte Count 2.57 X10^3/uL (0.83-4.51); Absolute Neutrophil Count 6.7 X10^3/uL (2.0-7.7); Basophil# 0.08 X10^3/uL; Basophil% 0.8 % (0-1); Eosinophil# 0.23 X10^3/uL; Eosinophils% 2.2 % (0-5); Hematocrit 34.8 % (37-47); Hemoglobin 9.8 g/dL (12.0-15.0); Lymphocyte # 2.57 X10^3/ul (0.83-4.51); Lymphocyte % 24.4 % (19-41); Mean Corp Hgb Conc 28.2 g/dL (32-36); Mean Corpuscular Hgb 25.3 pg (27.0-32.0); Mean Corpuscular Volume 89.9 fL (81-99); Mean Platelet Vol. 9.1 fl (6.2-12.0); Monocyte# 0.89 X10^3/uL; Monocyte% 8.4 % (0-10); NRBC Flagged by Analyzer 0 % (0-5); Neutrophil # 6.72 X10^3/uL (2.7-7.7); Neutrophil % 63.6 % (47-70); Platelet Count 598 K/mm3 (150-450); RBC Distribution Width CV 14.6 % (11.6-14.6); RBC Distribution Width SD 47.8 fl (35.1-43.9); Red Blood Count 3.87 M/mm3 (4.2-5.4); White Blood Count 10.6 K/mm3 (4.4-11.0)
[2020-10-19 16:26] LABS: Anion Gap 4 (5-15); BUN 14 mg/dL (7-18); BUN/Creat Ratio 15.4 RATIO (10-20); Calcium,Total 8.7 mg/dL (8.5-10.1); Chloride 101 mmol/L (98-107); Creatinine, Serum 0.91 mg/dL (0.55-1.02); EST Glomerular Filtration Rate 66 mL/min (>60); Est Glom Filt Rate - Afr Amer 79 mL/min (>60); Estimated Creatinine Clearance 54.72 ml/min; Glucose 95 mg/dL (74-106); Potassium 3.8 mmol/L (3.5-5.1); Sodium Level 139 mmol/L (136-145)
[2020-10-19 16:42] LABS: BNP,B-Type NATRIURETIC PEPTIDE 98.6 pg/mL (0-100)
--- NOTE | 2020-10-19 17:37 | NURSING ---
HOSPITALIST FOR DR CULP
--- NOTE | 2020-10-19 17:41 | HP.PCM.HOS_ITS ---
HPI - General General Date of Admission: 10/19/20 Date of Service: 10/19/20 Chief Complaint: Hypoxia, cough -noticed today HPI Narrative RAFIQ ALCANTAR, is a 64 F who presents low oxygen sats. Patient has history of chronic lymphedema, follows with Dr. Sarah in the wound clinic in the outpatient, hypertension, paroxysmal atrial fibrillation, who had a visiting nurse established with her today. Her visiting nurse found her oxygen saturation to be low. She found her to be coughing. Patient denied any sick contact. Denied any fever or chills. She denied any chest pain or dizziness or palpitation. Patient lives alone and was found to be hypoxic in the ED. [facility] Medical History Anemia Arthritis Asthma Back problem Bone fracture Chronic bronchitis Chronic pain COPD (chronic obstructive pulmonary disease) CPAP (continuous positive airway pressure) dependence Crohns disease Fibromyalgia Former smoker Gallstones Gastrointestinal distress GERD (gastroesophageal reflux disease) History of blood transfusion History of echocardiogram HTN (hypertension) Immunodeficiency disorder, selective immunoglobulin OA (osteoarthritis) SARAHY (obstructive sleep apnea) Osteopenia Osteoporosis Pancreatic divisum PNE Pulmonary HTN Seasonal allergies Skin cancer Sleep apnea Vitamin deficiency Home Medications erythromycin 1 applic OPHTHALMIC QHS 06/20/14 [History Last Taken 10/18/20] morphine 15 mg PO TID 10/05/18 [History Last Taken 10/19/20] rivaroxaban 20 mg PO DAILY 03/21/20 [History Last Taken 10/19/20] bumetanide 1 mg PO DAILY 03/27/20 [History Last Taken 10/19/20] levothyroxine 25 mcg tablet 50 mcg PO DAILY tab 05/29/20 [History Last Taken 10/19/20] pantoprazole 40 mg tablet,delayed release 40 mg PO DAILY PRN 05/29/20 [History Last Taken Unknown] prednisone 20 mg tablet 10 mg PO DAILY@0800 tab 05/29/20 [History Last Taken 10/19/20] budesonide-formoterol HFA 160 mcg-4.5 mcg/actuation aerosol inhaler 2 puff INHALATION BID 09/06/20 [History Last Taken 10/19/20] diphenoxylate-atropine 2.5 mg-0.025 mg tablet 6 tablet PO DAILY tablet 09/06/20 [History Last Taken 10/19/20] potassium chloride 20 mEq tablet,extended release(part/cryst) 20 meq PO DAILY PRN PRN tablet 09/06/20 [History Last Taken Unknown] sildenafil (pulm.hypertension) 20 mg tablet 10 mg PO TID tablet 09/06/20 [History Last Taken 10/19/20] amiodarone 100 mg PO DAILY 10/19/20 [History Last Taken 10/19/20] digoxin 125 mcg PO DAILY 10/19/20 [History Last Taken 10/19/20] Allergy/AdvReac Type Severity Reaction Status Date / Time codeine Allergy Severe ANGIOEDEMA/LEG Verified 09/06/20 14:40 SWELLING Penicillins Allergy Severe ANGIOEDEMA/LEG Verified 09/06/20 14:40 SWELLING Sulfa (Sulfonamide Allergy Severe ANGIOEDEMA/LEG Verified 09/06/20 14:40 Antibiotics) SWELLING sulfasalazine Allergy Severe ANGIOEDEMA/LEG Verified 09/06/20 14:40 [From Azulfidine] SWELLING Family History Father Anemia Heart disease Hypertension CVA (cerebral vascular accident) Mother Arthritis Cancer Osteoporosis Sister Arthritis Lung disease Surgical History History of kyphoplasty (~07/07/16) History of left knee replacement History of pneumonectomy History of resection of small bowel History of right heart catheterization (RHC) (~05/09/16) History of tonsillectomy History of total hysterectomy with bilateral salpingo-oophorectomy (BSO) Leg fracture, right Social History Smoking Status: Former smoker second hand exposure: No alcohol intake: current alcohol intake frequency: other details: SOCIAL substance use type: does not use what type of physical activity do you participate in: none seatbelt use: always 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 ROS Narrative Constitutional: Reports: Malaise, Weakness, Fatigue. Denies: Anorexia, Chills, Fever, Night Sweats, Weight Change Eyes: Denies: Blurred vision, Cataracts, Conjunctivae Inflammation, Pain, Redness, Vision Change HEENT: Denies: Difficulty Hearing, Difficulty Swallowing, Head Aches, Hearing Changes, Sinus Congestion, Sinus Drainage Cardiovascular: Admits to worsening bilateral leg edema, denies: Chest Pain, Orthopnea, Palpitations Respiratory: Admits to cough, Shortness of breath at rest, Denies:Sputum production Gastrointestinal: Denies: Abdominal Pain, Nausea, Vomiting Genitourinary: Denies: Dysuria Musculoskeletal: Denies: Joint Pain, Joint stiffness, Joint swelling, Joint Tenderness Skin: Chronic bilateral lymphedema Neurological: Denies: Numbness, Tingling, Focal weakness Vital Signs Vital Signs Vital Signs: 10/19/20 14:58 10/19/20 15:15 10/19/20 15:16 Temperature 97.6 F L 97.6 F L Temperature Source Temporal Temporal Pulse Rate 86 83 Respiratory Rate 17 16 Respiratory Effort Short of Breath Labored Respiratory Depth Normal Respiratory Pattern Normal Blood Pressure 167/94 H 167/94 H Blood Pressure Mean 118 118 Pulse Ox 96 99 Oxygen Delivery Method Room Air Nasal Cannula Nasal Cannula Oxygen Flow Rate (L/min) 2 2 10/19/20 17:01 Temperature 97.6 F L Temperature Source Temporal Pulse Rate 76 Respiratory Rate 21 H Respiratory Effort Respiratory Depth Respiratory Pattern Blood Pressure 160/89 H Blood Pressure Mean 112 Pulse Ox 100 Oxygen Delivery Method Nasal Cannula Oxygen Flow Rate (L/min) 2 Weight Weight: 133.81 kg Body Mass Index (BMI) 49.1 Physical Exam Narrative Physical exam: General: Alert, Oriented x3, Cooperative, No apparent distress, Well developed, on 2 L of oxygen HEENT: Atraumatic Oral: Moist Mucosa Neck: Supple Lungs: Diminished, no wheezes Cardiovascular: HS I+II, regular, no murmurs Abdomen: Bowel Sounds Present, Soft, Non Tender Extremities: Bilateral chronic lymphedema,pedal edema +4 Neurological: Grossly intact Psych/Mental Status: Appropriate Lab / Micro Data Result Diagrams: 10/19/20 15:30 10/19/20 15:30 Labs: Laboratory Results - last 24 hr 10/19/20 10/19/20 10/19/20 15:30 15:30 15:30 WBC 10.6 RBC 3.87 L Hgb 9.8 L Hct 34.8 L MCV 89.9 MCH 25.3 L MCHC 28.2 L RDW Std Deviation 47.8 H RDW Coeff of Curtis 14.6 Plt Count 598 H MPV 9.1 Immature Gran % (Auto) 0.600 Neut % (Auto) 63.6 Lymph % (Auto) 24.4 Bates % (Auto) 8.4 Eos % (Auto) 2.2 Baso % (Auto) 0.8 Absolute Neuts (auto) 6.7 Absolute Lymphs (auto) 2.57 Nucleated RBC % 0 Sodium 139 Potassium 3.8 Chloride 101 Carbon Dioxide 34.0 H Anion Gap 4 L BUN 14 Creatinine 0.91 Estim Creat Clear Calc 54.72 Est GFR (MDRD) Af Amer 79 Est GFR (MDRD) Non-Af 66 BUN/Creatinine Ratio 15.4 Glucose 95 Calcium 8.7 Troponin I < 0.015 B-Natriuretic Peptide 98.6 Micro: Microbiology 10/19/20 15:55 SARS-CoV-2 Antigen (Rapid) - Final Nasal Secretion Radiology Impression Chest X-Ray 10/19/20 15:50 IMPRESSION: Right upper lobe pneumonia. Electronically Signed: Dino Augustin MD at 16:19 EDT Tel , Service support , Assessment & Plan Assessment/Plan (1) Crohns disease: QUALIFIERS: Digestive disease complication type: unspecified c omplication Gastrointestinal tract location: small intestine Qualified Code(s): K50.019 - Crohn's disease of small intestine with unspecified compli cations (2) Hypertension: QUALIFIERS: Hypertension type: essential hypertension Qualified Code(s): I10 - Essential (primary) hypertension (3) COPD (chronic obstructive pulmonary disease): QUALIFIERS: COPD type: unspecified COPD Qualified Code(s): J44.9 - Chronic obstructive pulmonary disease, unspecified (4) Chronic back pain: QUALIFIERS: Back pain laterality: bilateral Back pain location: low back pain Sciatica presence: without sciatica Qualified Code(s): M54.5 - Low back pain; G89.29 - Other chronic pain (5) Hypoxia: (6) Pneumonia: QUALIFIERS: Laterality: right Lung location: upper lobe of lung Pneumonia type: due to other aerobic Gram-negative bacteria Qualified Code(s): J15.6 - Pneumonia due to other Gram-negative bacteria PLAN: 1. Acute right upper lobe pneumonia, likely secondary to suspected gram-negative organisms, seen on chest x-ray COVID-19 rapid antigen test is negative. Urine Legionella and strep coccal antigen Patient has allergy to penicillin, will continue on IV Levaquin, scheduled breathing treatments 2. Hypoxia secondary to the above, continue with breathing treatments, encourage use of incentive spirometer. Wean off oxygen for SPO2 more than 94% 3. Hypertension, uncontrolled, will continue to monitor on hydralazine as needed 4. Acute stable chronic anemia, hemoglobin is 9.8, dropped from 11.1 We will check iron stores, repeat blood work in a.m. 5. Rest of chronic medical conditions including COPD, Crohn's disease -on chronic steroids, acute on chronic lymphedema being managed with vascular surgery and wound center, super morbid obesity, chronic low back pain with chronic compression fractures, paroxysmal atrial fibrillation, hypothyroidism, history of DVT and PE on Xarelto, pulmonary hypertension, chronic pain syndrome- all complicates care Her admitting EKG shows normal sinus rhythm Continue rest of home medications -bumetanide nightly, digoxin, levothyroxine, morphine 6. DVT prophylaxis with Xarelto 7. CODE STATUS?full code I discussed and explained in details the various types of CODE STATUS-full code, DNR CCA, DNR CC. Patient chose Time spent discussing CODE STATUS 16 minutes Visit Charges Inpatient E&M: 16531 Init Hosp L3 Procedures Hospitalists Procedures: 26798 Advncd Care Plan 30 Min
[2020-10-19] MEDS: levoFLOXacin IV 750 MG/150 ML BAG 100 MG IV (18:01)
--- NOTE | 2020-10-19 18:02 | NURSING ---
319 NUAMAH PNEUMONIA, COPD EXAC, HYPOXEMIA
[2020-10-19 18:29] LABS: Lactic Acid 0.6 mmol/L (0.4-1.9)
--- NOTE | 2020-10-19 21:29 | EKG12_ITS ---
Test Reason : DYSRHYTHMIA Blood Pressure : / mmHG Vent. Rate : 074 BPM Atrial Rate : 074 BPM P-R Int : 148 ms QRS Dur : 082 ms QT Int : 372 ms P-R-T Axes : 025 029 028 degrees QTc Int : 412 ms Normal sinus rhythm Normal ECG Confirmed by DELIA STEARNS, DARREN ([id number]), scientific editor ADRIANE ANTUNEZ ([id number]) on 10/24/2020 1:16:45 PM Referred By: JEREMY Confirmed By:DARREN LIN MD
[2020-10-19] MEDS: guaiFENesin 1,200 MG Tablet 1200 MG PO (21:58)
[2020-10-19] MEDS: SILDENAFIL CITRATE 20 MG TABLET 10 MG PO (21:58)
[2020-10-19] MEDS: morphine SR 15 MG Tablet PO (21:58)
[2020-10-19] MEDS: Erythromycin Base 1 OPTH.TUBE 1 APPLIC OPHTHALMIC (21:58)
[2020-10-20] VITALS (9 sets, daily range): BP systolic 109–134; BP diastolic 53–63; PULSE 70–83; RESP 18–20; TEMP 36.8–37.4; O2SAT 80–100
[2020-10-20] MEDS: Diphenoxylate/Atrop 1 Tablet 6 TABLET PO (04:24)
[2020-10-20] MEDS: SILDENAFIL CITRATE 20 MG TABLET 10 MG PO ×3 (05:58→21:29)
[2020-10-20] MEDS: morphine SR 15 MG Tablet PO ×3 (05:58→21:28)
[2020-10-20] MEDS: Levothyroxine 25 MCG TABLET PO (05:59)
[2020-10-20] MEDS: Ipratropium/Albuterol Sulfate 3 ML AMPUL.NEB INHALATION ×3 (06:55→15:14)
[2020-10-20] MEDS: Potassium Chloride Oral Tablet 20 MEQ PO (08:22)
[2020-10-20] MEDS: Amiodarone 200 MG Tablet 100 MG PO (08:22)
[2020-10-20] MEDS: predniSONE 10 MG Tablet PO (08:23)
[2020-10-20] MEDS: guaiFENesin 1,200 MG Tablet 1200 MG PO ×2 (08:23→21:28)
[2020-10-20] MEDS: Rivaroxaban 20 MG Tablet PO (08:29)
[2020-10-20] MEDS: Bumetanide 2 MG Tablet PO (08:29)
[2020-10-20] MEDS: Digoxin 125 MCG Tablet PO (08:29)
[2020-10-20 09:01] LABS: Absolute Lymphocyte Count 2.49 X10^3/uL (0.83-4.51); Absolute Neutrophil Count 7.4 X10^3/uL (2.0-7.7); Basophil# 0.06 X10^3/uL; Basophil% 0.5 % (0-1); Eosinophil# 0.25 X10^3/uL; Eosinophils% 2.3 % (0-5); Hematocrit 35.8 % (37-47); Hemoglobin 10.2 g/dL (12.0-15.0); Lymphocyte # 2.49 X10^3/ul (0.83-4.51); Lymphocyte % 22.4 % (19-41); Mean Corp Hgb Conc 28.5 g/dL (32-36); Mean Corpuscular Hgb 25.7 pg (27.0-32.0); Mean Corpuscular Volume 90.2 fL (81-99); Mean Platelet Vol. 8.8 fl (6.2-12.0); Monocyte% 8.1 % (0-10); NRBC Flagged by Analyzer 0 % (0-5); Neutrophil # 7.36 X10^3/uL (2.7-7.7); Neutrophil % 66.2 % (47-70); Platelet Count 605 K/mm3 (150-450); RBC Distribution Width CV 14.6 % (11.6-14.6); RBC Distribution Width SD 48.7 fl (35.1-43.9); Red Blood Count 3.97 M/mm3 (4.2-5.4); White Blood Count 11.1 K/mm3 (4.4-11.0)
[2020-10-20 09:40] LABS: ALB/GLOB Ratio 1.2 RATIO (0.9-2.4); AST(SGOT) 10 U/L (15-37); Alanine Aminotransfer ALT/SGPT 14 U/L (13-56); Albumin, Serum 3.2 g/dL (3.2-5.0); Alkaline Phosphatase 67 U/L (45-117); Anion Gap 4 (5-15); BUN 12 mg/dL (7-18); BUN/Creat Ratio 12.2 RATIO (10-20); Calcium,Total 8.9 mg/dL (8.5-10.1); Chloride 102 mmol/L (98-107); Creatinine, Serum 0.98 mg/dL (0.55-1.02); EST Glomerular Filtration Rate 60 mL/min (>60); Est Glom Filt Rate - Afr Amer 73 mL/min (>60); Estimated Creatinine Clearance 50.81 ml/min; Globulin 2.7 g/dL (2.2-4.2); Glucose 84 mg/dL (74-106); Potassium 4.1 mmol/L (3.5-5.1); Protein, Total 5.9 g/dL (6.4-8.2); Sodium Level 140 mmol/L (136-145)
[2020-10-20] MEDS: levoFLOXacin IV 750 MG/150 ML BAG 100 MG IV (10:21)
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
--- NOTE | 2020-10-20 17:03 | PCM.PN.HOSP ---
Subjective Subjective Patient states she really did not want to come to the hospital but her home health nurse insisted given the fact that she was hypoxic. She denies any marked shortness of breath. She states she has been dealing with lower extremity edema since about January when she developed new onset A. fib. She follows with Dr. Banks for her pulmonary disease and Dr. Clements and Nicanor for her heart. Objective Data Objective Data Vital Signs: Vital Signs Temp Pulse Resp BP Pulse Ox 98.5 F 77 18 109/54 L 96 10/20/20 15:10 10/20/20 15:14 10/20/20 15:14 10/20/20 15:10 10/20/20 15:10 Oxygen Flow Rate (L/min) 2 Oxygen Delivery Method Nasal Cannula Weight: 138.1 kg Body Mass Index (BMI) 50.6 Intake & Output: Intake and Output for Last 24 Hours 10/18/20 10/19/20 10/20/20 23:59 23:59 23:59 Intake Total 150 / 200 560 / 560 Output Total 500 / 500 Balance 150 / 100 60 / 60 Lab / Micro Data Result Diagrams: 10/20/20 08:53 10/20/20 08:53 Labs: Laboratory Results - last 24 hr 10/19/20 10/20/20 10/20/20 17:58 08:53 08:53 WBC 11.1 H RBC 3.97 L Hgb 10.2 L Hct 35.8 L MCV 90.2 MCH 25.7 L MCHC 28.5 L RDW Std Deviation 48.7 H RDW Coeff of Curtis 14.6 Plt Count 605 H MPV 8.8 Immature Gran % (Auto) 0.500 Neut % (Auto) 66.2 Lymph % (Auto) 22.4 [place] % (Auto) 8.1 Eos % (Auto) 2.3 Baso % (Auto) 0.5 Absolute Neuts (auto) 7.4 Absolute Lymphs (auto) 2.49 Nucleated RBC % 0 Sodium 140 Potassium 4.1 Chloride 102 Carbon Dioxide 34.0 H Anion Gap 4 L BUN 12 Creatinine 0.98 Estim Creat Clear Calc 50.81 Est GFR (MDRD) Af Amer 73 Est GFR (MDRD) Non-Af 60 BUN/Creatinine Ratio 12.2 Glucose 84 Lactic Acid 0.6 Calcium 8.9 Total Bilirubin 2.10 H AST 10 L ALT 14 Alkaline Phosphatase 67 Total Protein 5.9 L Albumin 3.2 Globulin 2.7 Albumin/Globulin Ratio 1.2 Micro: Microbiology 10/19/20 22:10 Urine, Random Legionella Antigen - Final 10/19/20 22:10 Urine, Random Streptococcus pneumoniae Antigen (M - Final 10/19/20 15:55 Nasal Secretion SARS-CoV-2 Antigen (Rapid) - Final Physical Exam Const alert, oriented x3 and no apparent distress Constitutional Narrative: Obese upper middle-aged white female, sitting up in bed, appears comfortable, somewhat frustrated that she is admitted to the hospital but very pleasant Exam Limitations: no limitations HEENT head/scalp atraumatic Head and Scalp: normocephalic Eyes PERRL, EOMs intact bilaterally and conjunctivae normal Neck no lymphadenopathy, supple and no JVD Resp normal respiratory effort, no retractions, no use of accessory muscles and clear to auscultation bilaterally Resp Narrative: Exam difficult and limited secondary to body habitus, diminished diffusely but no adventitious sounds Auscultation: Negative for crackles, rales, rhonchi or wheezes Cardio regular rate, regular rhythm, S1 normal heart sound, S2 normal heart sound, no murmurs, no rub, no gallops, no clicks and no JVD GI normal to inspection, nondistended, normoactive bowel sounds, soft to palpation, non-tender and non-distended Extremity normal to inspection and no clubbing, cyanosis or edema Peripheral Pulses: Yes pulses 2+ throughout Skin no rashes or lesions noted, no wounds, skin turgor normal, no jaundice, no petechiae and no mottling Neuro oriented x3, CN's II-XII intact bilaterally and moves all extremities Sensorium / Orientation: awake, alert, oriented to person, oriented to place and oriented to time Speech: speech normal Psych affect normal Assessment & Plan Assessment/Plan (1) Acute hypoxemic respiratory failure: (2) Thrombocytosis: PLAN: Acute hypoxic respiratory insufficiency secondary to right upper lobe pneumonia -Continue pulmonary toilet -Urine antigens are negative for strep pneumo and Legionella -Covid negative -Patient anticoagulated with Xarelto for history of PEs -Continue Levaquin -Unable to produce a sputum so we will have to continue to treat with broad-spectrum and atypical coverage -Continue supplemental oxygen and wean as able -Current oxygen saturations are 96 to 100% on 2 L nasal cannula -Wean and trial off with ambulation tomorrow if sats stable on 2 L -Continue pulmonary toilet -Continue incentive spirometry -Check CT chest for betteR clarification is chest x-ray is somewhat limited due to body habitus Right upper lobe pneumonia -See above Chronic stable anemia -Continue to monitor hemoglobin Chronic thrombocytosis -Slightly elevated from baseline but suspect this may be due to acute infection -Repeat CBC in a.m. History of pulmonary embolism -Continue Xarelto History of COPD/PAH/SARAHY/OHS -Clinical exam not consistent with COPD exacerbation -No steroids needed at this time -Continue home inhalers and medications History of Crohn's -Continue baseline home steroid dose Chronic bilateral lower extremity lymphedema -Patient follows outpatient with vascular surgery in the wound center -No current signs of infection PAF -Continue home medication Hypothyroidism -Continue thyroid supplementation Chronic pain -Continue home medication Super morbid obesity -Recommend weight loss -Complicates care, prognosis, and outcomes DVT prophylaxis -Patient fully anticoagulated with Xarelto CODE STATUS -Full code Visit Charges Inpatient E&M: 67348 Subs Hosp L2
--- NOTE | 2020-10-20 18:02 | CT_ITS ---
STUDY: CT CHEST WITHOUT CONTRAST REASON FOR EXAM: Female, 64 years old. HYPOXIA RADIATION DOSAGE (If Supplied By Facility): CTDIvol = ( 17.59 ) mGy, DLP = ( 650.37 ) mGycm TECHNIQUE: Transaxial imaging was performed without the administration of intravenous contrast material. Individualized dose optimization techniques were used for this CT. COMPARISON: None. FINDINGS: Right chest port extends to the lower SVC. No airspace consolidation. Operative changes of the left apex. There are numerous small (measuring up to 5-6 mm) pulmonary nodules not substantially changed since prior CT, as seen on image [id number] series 4. Trace left pleural fluid. Normal heart and pericardium. There are calcifications of the coronary arteries. Normal mediastinum. Normal hilar regions. Normal unenhanced pulmonary arteries. There is atherosclerotic calcification of the aortic arch with tortuosity and elongation of the aortic arch and descending thoracic aorta. There are multi-level degenerative changes of the thoracic spine. Gallstones present. CT/Chest without Contrast IMPRESSION: 1. Trace left pleural effusion. No airspace consolidation. 2. Stable very small (5-6 mm) pulmonary nodules. Electronically Signed: Paul Crocker MD ([place]) at 18:38 EDT , Service support ,
[2020-10-20] MEDS: Erythromycin Base 1 OPTH.TUBE 1 APPLIC OPHTHALMIC (21:29)
[2020-10-21] VITALS (9 sets, daily range): BP systolic 116–139; BP diastolic 65–88; PULSE 71–91; RESP 16–18; TEMP 37.1–37.2; O2SAT 82–95
[2020-10-21] MEDS: Diphenoxylate/Atrop 1 Tablet 6 TABLET PO (04:30)
[2020-10-21] MEDS: morphine SR 15 MG Tablet PO ×2 (06:03→14:38)
[2020-10-21] MEDS: Levothyroxine 25 MCG TABLET PO (06:03)
[2020-10-21] MEDS: SILDENAFIL CITRATE 20 MG TABLET 10 MG PO ×2 (06:03→14:38)
[2020-10-21 06:20] LABS: Absolute Lymphocyte Count 1.68 X10^3/uL (0.83-4.51); Absolute Neutrophil Count 8.2 X10^3/uL (2.0-7.7); Basophil# 0.04 X10^3/uL; Basophil% 0.4 % (0-1); Eosinophil# 0.16 X10^3/uL; Eosinophils% 1.5 % (0-5); Hematocrit 31.3 % (37-47); Hemoglobin 8.6 g/dL (12.0-15.0); Lymphocyte # 1.68 X10^3/ul (0.83-4.51); Lymphocyte % 15.3 % (19-41); Mean Corp Hgb Conc 27.5 g/dL (32-36); Mean Corpuscular Hgb 25.1 pg (27.0-32.0); Mean Corpuscular Volume 91.3 fL (81-99); Mean Platelet Vol. 9.1 fl (6.2-12.0); Monocyte% 7.3 % (0-10); NRBC Flagged by Analyzer 0 % (0-5); Neutrophil # 8.23 X10^3/uL (2.7-7.7); Platelet Count 498 K/mm3 (150-450); RBC Distribution Width CV 14.6 % (11.6-14.6); RBC Distribution Width SD 49.3 fl (35.1-43.9); Red Blood Count 3.43 M/mm3 (4.2-5.4)
[2020-10-21] MEDS: Ipratropium/Albuterol Sulfate 3 ML AMPUL.NEB INHALATION ×3 (06:36→14:59)
[2020-10-21 06:44] LABS: Anion Gap 1 (5-15); BUN 13 mg/dL (7-18); BUN/Creat Ratio 11.9 RATIO (10-20); Calcium,Total 8.6 mg/dL (8.5-10.1); Chloride 100 mmol/L (98-107); Creatinine, Serum 1.09 mg/dL (0.55-1.02); EST Glomerular Filtration Rate 53 mL/min (>60); Est Glom Filt Rate - Afr Amer 64 mL/min (>60); Estimated Creatinine Clearance 45.68 ml/min; Glucose 97 mg/dL (74-106); Potassium 3.9 mmol/L (3.5-5.1); Sodium Level 139 mmol/L (136-145)
[2020-10-21] MEDS: Digoxin 125 MCG Tablet PO (09:52)
[2020-10-21] MEDS: guaiFENesin 1,200 MG Tablet 1200 MG PO (09:52)
[2020-10-21] MEDS: Rivaroxaban 20 MG Tablet PO (09:52)
[2020-10-21] MEDS: Potassium Chloride Oral Tablet 20 MEQ PO (09:53)
[2020-10-21] MEDS: predniSONE 10 MG Tablet PO (09:53)
[2020-10-21] MEDS: Bumetanide 2 MG Tablet PO (09:53)
[2020-10-21] MEDS: Amiodarone 200 MG Tablet 100 MG PO (09:53)
[2020-10-21] MEDS: levoFLOXacin IV 750 MG/150 ML BAG 150 MG IV (09:55)
--- NOTE | 2020-10-21 10:21 | CASEMGMT ---
MOHSEN MCGARRY called pt room to discuss local in network O2 companies, pt preferred provider is [employer]. Pt aware that portable tank will be delivered to the hospital and the concentrator will be set up once pt arrives home. Pt denies further questions.
--- NOTE | 2020-10-21 11:07 | DS.PCM_ITS ---
Providers Date of Admission: 10/19/20 Primary Care Physician: Dr. Julian Brand MD Reason For Visit: HYPOXIA, PNEUMONIA Diagnosis Discharge Diagnosis (1) Acute hypoxemic respiratory failure: Status: Acute Code(s): J96.01 - Acute respiratory failure with hypoxia (2) Thrombocytosis: Status: Acute Code(s): D47.3 - Essential (hemorrhagic) thrombocythemia Medications at Discharge Home Medications erythromycin 1 applic OPHTHALMIC QHS 06/20/14 morphine 15 mg PO TID 10/05/18 rivaroxaban 20 mg PO DAILY 03/21/20 bumetanide 1 mg PO DAILY 03/27/20 levothyroxine 25 mcg tablet 50 mcg PO DAILY tab 05/29/20 pantoprazole 40 mg tablet,delayed release 40 mg PO DAILY PRN 05/29/20 prednisone 20 mg tablet 10 mg PO DAILY@0800 tab 05/29/20 budesonide-formoterol HFA 160 mcg-4.5 mcg/actuation aerosol inhaler 2 puff INHALATION BID 09/06/20 diphenoxylate-atropine 2.5 mg-0.025 mg tablet 6 tablet PO 0400 tablet 09/06/20 potassium chloride 20 mEq tablet,extended release(part/cryst) 20 meq PO DAILY PRN PRN tablet 09/06/20 sildenafil (pulm.hypertension) 20 mg tablet 10 mg PO TID tablet 09/06/20 amiodarone 100 mg PO DAILY 10/19/20 digoxin 125 mcg PO DAILY 10/19/20 levofloxacin 750 mg PO Q24H #3 tab 10/21/20 loratadine [Claritin] 10 mg PO DAILY #30 tab 10/21/20 Hospital Course Operations None Procedures - (CT chest-trace left pleural effusion, no airspace consolidation, small 5 to 6 mm pulmonary nodules(unchanged)) Summary of Care Provided Minutes Spent on Discharge: 38 Hospital Course: Mrs. Herrera is a 64-year-old female who presented to the emergency department at [facility] on 10/11/2020 with hypoxia and cough. She has a history of chronic lymphedema for which she follows as an outpatient with Dr. Sarah in the wound clinic. She has visiting nurse that is established and was doing her visit on the day of her admission and found her oxygen level to be low. The patient states that she did not want to come to the hospital and really saw no need but that her nurse insisted so she came to be evaluated. She had a cough that started on the day of admission and states she has had significant allergies this spring and thinks a lot of this is attributed to that. She did admit during her hospitalization that she has not been co mpliant with her Bumex dosing and is taking it most 1 tablet daily because it makes her urinate so much. In the emergency department she desatted to 60% with little exertion. During hospitalization she has been able to be maintained on 2 L nasal cannula from 94 to 100%. She was being weaned to 1 L with oxygen saturations of 98%. We did trial her off oxygen and with exertion she desatted to the mid 80s but quickly recovered with the initiation of 2 L nasal cannula. Her chest x-ray in the emergency department commented on a right upper lobe infiltrate a CT was performed to clarify given her body habitus and was negative for any infiltrate and showed only a trace left pleural effusion with no airspace consolidation and very stable small pulmonary nodules. Her BNP on admission was 98. During her hospitalization she was treated with Levaquin and her Bumex was continued as ordered twice daily. She did refuse a dose on the evening prior to discharge. I discussed the importance of taking this medication especially given her current clinical situation and with her complaining that her leg swelling had not improved. She was fairly insistent on going home. She did have a drop in her heel again during admission that was slight initially but more dramatic at the 48-hour ayush. A repeat hemoglobin was reassessed prior to discharge and was more consistent what she with what she had been previously. I suspect her initial hemoglobin on the a.m. of 10/21/2020 may have been delusional upon comparison to previous CBCs and the current one we do just prior to discharge. We were able to get her some oxygen to be discharged on and recommended she follow-up with Dr. Banks within the month, Dr. Vick within a month and her primary care physician within a week of discharge. She indicated she would call on Thursday for appointments. We did discharge her with Levaquin to complete a 5-day course of oral antibiotics. She was also given a prescription for Claritin given her severe allergies and her concern that this was contributing to her drainage. She expressed understanding for the need to return to the hospital if she worsens clinically. She has home health and they will follow with her on Thursday morning. Discharge diagnosis Acute hypoxic respiratory insufficiency Right upper lobe pneumonia Chronic stable anemia Chronic thrombocytosis History of pulmonary embolism History of COPD PAH SARAHY OHS Crohn's disease Chronic bilateral lower extremity lymphedema PAF Hypothyroidism Chronic pain Super morbid obesity Seasonal allergies Physical Exam Narrative Patient reports she feels better today. Breathing has improved. She would really like to go home if possible. She is okay with going home on oxygen if needed. She feels that a lot of her congestion is related to allergies which she has been struggling with for several weeks now. She takes nothing for this at home but would be willing to take some Claritin. Patient admits that she does not take her Bumex as ordered at home because it makes her urinate so much. She reports she usually only takes 1 tablet daily. Const alert, oriented x3 and no apparent distress Constitutional Narrative: Morbidly obese upper middle-aged white female, sitting up in a chair watching television, appears comfortable, is nontoxic and in no distress General Appearance: cooperative, comfortable, well kempt and well developed Orientation / Consciousness: awake, oriented to person, oriented to place and oriented to time Exam Limitations: no limitations HEENT normocephalic, head/scalp atraumatic, moist oral mucous membranes and oropharynx normal HEENT Narrative: Dentures in place, no thrush Mouth: oral and palatal mucosa normal Eyes PERRL, EOMs intact bilaterally and conjunctivae normal Neck no lymphadenopathy, supple and no JVD Resp normal respiratory effort, no retractions, no use of accessory muscles and clear to auscultation bilaterally Resp Narrative: Exam difficult and limited secondary to body habitus, diminished diffusely but no adventitious sounds, no dyspnea with conversation, intermittent coughing, dry cough Auscultation: Negative for crackles, rales, rhonchi or wheezes Cardio regular rate, regular rhythm, S1 normal heart sound, S2 normal heart sound, no murmurs, no rub, no gallops, no clicks and no JVD GI normal to inspection, nondistended, normoactive bowel sounds, soft to palpation, non-tender and non-distended Extremity normal to inspection and no clubbing, cyanosis or edema Skin no rashes or lesions noted, no wounds, skin turgor normal, no jaundice, no petechiae and no mottling Neuro oriented x3, CN's II-XII intact bilaterally and moves all extremities Sensorium / Orientation: awake, alert, oriented to person, oriented to place and oriented to time Speech: speech normal Psych affect normal Psych Narrative: Very pleasant ABG / Lab / Microbiology Data Result Diagrams: 10/21/20 11:45 10/21/20 05:54 Laboratory: Laboratory Results - last 24 hr 10/21/20 10/21/20 05:54 05:54 WBC 11.0 RBC 3.43 L Hgb 8.6 L Hct 31.3 L MCV 91.3 MCH 25.1 L MCHC 27.5 L RDW Std Deviation 49.3 H RDW Coeff of Curtis 14.6 Plt Count 498 H MPV 9.1 Immature Gran % (Auto) 0.500 Neut % (Auto) 75.0 H Lymph % (Auto) 15.3 L [place] % (Auto) 7.3 Eos % (Auto) 1.5 Baso % (Auto) 0.4 Absolute Neuts (auto) 8.2 H Absolute Lymphs (auto) 1.68 Nucleated RBC % 0 Sodium 139 Potassium 3.9 Chloride 100 Carbon Dioxide 38.0 H Anion Gap 1 L BUN 13 Creatinine 1.09 H Estim Creat Clear Calc 45.68 Est GFR (MDRD) Af Amer 64 Est GFR (MDRD) Non-Af 53 L BUN/Creatinine Ratio 11.9 Glucose 97 Calcium 8.6 Microbiology: Microbiology 10/19/20 22:10 Urine, Random Legionella Antigen - Final 10/19/20 22:10 Urine, Random Streptococcus pneumoniae Antigen (M - Final 10/19/20 15:55 Nasal Secretion SARS-CoV-2 Antigen (Rapid) - Final Radiography Diagnostic Testing: Radiology Impression Chest CT 10/20/20 18:02 IMPRESSION: 1. Trace left pleural effusion. No airspace consolidation. 2. Stable very small (5-6 mm) pulmonary nodules. Electronically Signed: Paul Crocker MD (Brooks) at 18:38 EDT , Service support , Meaningful Use Info Meaningful Use Diagnoses (Choose all that apply): None applicable Discharge Plan Admission Admit Date/Time: 10/19/20 17:40 Primary Reason for Your Visit: Hypoxia Attending Provider: Joya Clemente Primary Care Provider: Julian Brand Chi Discharge Orders/Prescriptions Prescriptions: New levofloxacin 750 mg tablet 750 mg PO Q24H Qty: 3 RF: 0 loratadine [Claritin] 10 mg tablet 10 mg PO DAILY Qty: 30 RF: 0 Continued pantoprazole 40 mg tablet,delayed release (DR/EC) 40 mg PO DAILY PRN (Reason: Acid Reflux) RF: 0 potassium chloride 20 mEq tablet,ER particles/crystals 20 meq PO DAILY PRN PRN (Reason: with water pill) RF: 0 prednisone 20 mg tablet 10 mg PO DAILY@0800 RF: 0 levothyroxine 25 mcg tablet 50 mcg PO DAILY RF: 0 erythromycin 1 APPLIC ointment 1 applic OPHTHALMIC QHS RF: 0 budesonide-formoterol 160-4.5 mcg/actuation HFA aerosol inhaler 2 puff INHALATION BID RF: 0 diphenoxylate-atropine 2.5-0.025 mg tablet 6 tablet PO 0400 RF: 0 sildenafil (pulm.hypertension) 20 mg tablet 10 mg PO TID RF: 0 morphine 15 MG tablet 15 mg PO TID RF: 0 rivaroxaban 20 MG tablet 20 mg PO DAILY RF: 0 bumetanide 2 MG tablet 1 mg PO DAILY RF: 0 amiodarone 200 mg tablet 100 mg PO DAILY RF: 0 digoxin 125 mcg (0.125 mg) tablet 125 mcg PO DAILY RF: 0 Referrals / Follow Up: Edmund Vick MD [STAFF PHYSICIAN] - Within 1 Month Kirill Banks MD [STAFF PHYSICIAN] - Within 2 Weeks Julian Brand Chi, MD [Primary Care Provider] - In 1 Week Disposition Disposition (needs filled in before D/C Order can be placed): Home Health Service Visit Charges Inpatient E&M: 31004 Disch Hosp
[2020-10-21 11:59] LABS: Absolute Lymphocyte Count 2.18 X10^3/uL (0.83-4.51); Absolute Neutrophil Count 9.3 X10^3/uL (2.0-7.7); Basophil# 0.06 X10^3/uL; Basophil% 0.5 % (0-1); Eosinophil# 0.21 X10^3/uL; Eosinophils% 1.6 % (0-5); Hematocrit 34.3 % (37-47); Hemoglobin 9.8 g/dL (12.0-15.0); Lymphocyte # 2.18 X10^3/ul (0.83-4.51); Mean Corp Hgb Conc 28.6 g/dL (32-36); Mean Corpuscular Hgb 25.9 pg (27.0-32.0); Mean Corpuscular Volume 90.5 fL (81-99); Mean Platelet Vol. 8.9 fl (6.2-12.0); Monocyte# 0.97 X10^3/uL; Monocyte% 7.6 % (0-10); NRBC Flagged by Analyzer 0 % (0-5); Neutrophil # 9.33 X10^3/uL (2.7-7.7); Neutrophil % 72.8 % (47-70); Platelet Count 526 K/mm3 (150-450); RBC Distribution Width CV 14.6 % (11.6-14.6); RBC Distribution Width SD 48.9 fl (35.1-43.9); Red Blood Count 3.79 M/mm3 (4.2-5.4); White Blood Count 12.8 K/mm3 (4.4-11.0)
[2020-10-21] MEDS: 0.9% Saline Lock 10 ML Syringe IV (16:42)
--- NOTE | 2020-10-23 15:55 | CASEMGMT ---
MOHSEN MCGARRY Discharge Follow-up Phone Call: THERESA: Sarbjit Strata: 3 Call Date: 10/23/20 Discharge Date: 10/21/20 Time of Call: 1555 Duration: 3 min Admitting Diagnosis: Hypoxia, pneumonia MOHSEN MCGARRY completed follow-up phone call after recent hospitalization. Patient states she is doing well. Patient had no questions regarding discharge instructions. Malgorzata was able to fill prescriptions without any issues. Patient is in the process of scheduling follow-up appts. Patient states she is wearing her oxygen. Patient states [facility] has been there to see her. Patient had no further questions or concerns at this time.
== END 2020-10-21 16:48 | disposition home health service (06) | DRG 194 ==
LOC: ED 17:42 → MS3 18:00
PROVIDERS: Admitting Provider Internal Medicine; Emergency Provider Emergency Medicine; PCP Family Medicine Geriatric Medicine; Visit Provider Internal Medicine
DX: J18.9 Pneumonia, unspecified organism (principal); J44.0 Chronic obstructive pulmonary disease with (acute) lower respiratory infection; K50.00 Crohn's disease of small intestine without complications; D84.9 Immunodeficiency, unspecified; Z68.43 Body mass index [BMI] 50.0-59.9, adult; D47.3 Essential (hemorrhagic) thrombocythemia; I48.0 Paroxysmal atrial fibrillation; M19.90 Unspecified osteoarthritis, unspecified site; M79.7 Fibromyalgia; K21.9 Gastro-esophageal reflux disease without esophagitis; I27.20 Pulmonary hypertension, unspecified; G47.33 Obstructive sleep apnea (adult) (pediatric); D64.9 Anemia, unspecified; G89.29 Other chronic pain; E03.9 Hypothyroidism, unspecified; E66.01 Morbid (severe) obesity due to excess calories; I10 Essential (primary) hypertension; I89.0 Lymphedema, not elsewhere classified; Z79.52 Long term (current) use of systemic steroids; Z79.899 Other long term (current) drug therapy; Z87.891 Personal history of nicotine dependence; Z86.711 Personal history of pulmonary embolism; Z91.14 Patient's other noncompliance with medication regimen
CPT/HCPCS: 36415; 36591; 71045; 71250; 80048; 80053; 83605; 83880; 84484; 85025; 87040; 87426; 87449; 93005; 94640; 97110; 97162; 97166; 97530; 97802; 99251; 99285; J7050; A4216; G0463

== ENCOUNTER → 2020-11-27 08:17 | Outpatient (CLI) | payer MEDICARE, OTHER, SELFPAY ==
[2020-09-06 14:39] VITALS: BMI 48.2
[2020-10-19 18:28] VITALS: BMI 50.6
== END ==
PROVIDERS: PCP Family Medicine Geriatric Medicine; Referring Provider Internal Medicine Gastroenterology; Visit Provider Internal Medicine Gastroenterology
DX: K50.90 Crohn's disease, unspecified, without complications (principal); R19.7 Diarrhea, unspecified

== ENCOUNTER → 2020-12-18 10:58 | Outpatient (CLI) | payer MEDICARE, OTHER, SELFPAY ==
[2020-12-10 15:48] VITALS: BMI 50.6
[2020-12-18 15:31] LABS: Vitamin D,25 Hydroxy 24.5 ng/mL
[2020-12-18 15:35] LABS: PTHIN 103.5 pg/mL (18.4-80.1)
[2020-12-18 15:42] LABS: ALB/GLOB Ratio 1.3 RATIO (0.9-2.4); AST(SGOT) 15 U/L (15-37); Alanine Aminotransfer ALT/SGPT 19 U/L (13-56); Albumin, Serum 3.4 g/dL (3.2-5.0); Alkaline Phosphatase 69 U/L (45-117); Anion Gap 7 (5-15); BUN 13 mg/dL (7-18); BUN/Creat Ratio 16.2 RATIO (10-20); Chloride 103 mmol/L (98-107); EST Glomerular Filtration Rate 76 mL/min (>60); Est Glom Filt Rate - Afr Amer 92 mL/min (>60); Globulin 2.7 g/dL (2.2-4.2); Glucose 90 mg/dL (74-106); Potassium 4.1 mmol/L (3.5-5.1); Protein, Total 6.1 g/dL (6.4-8.2); Sodium Level 140 mmol/L (136-145); Thyroid Stim Hormone (TSH) 3.82 uIU/mL (0.358-3.74)
== END ==
PROVIDERS: PCP Family Medicine Geriatric Medicine; Referring Provider Nurse Practitioner Adult Health; Visit Provider Nurse Practitioner Adult Health
DX: E21.1 Secondary hyperparathyroidism, not elsewhere classified (principal); E55.9 Vitamin D deficiency, unspecified; I10 Essential (primary) hypertension
CPT/HCPCS: 36415; 80053; 82306; 83970; 84443

== ENCOUNTER 2021-03-01 17:52 | Emergency (ER) | payer MEDICARE, OTHER, SELFPAY ==
[2021-03-01 17:52] VITALS: BP 147/86; PULSE 89; RESP 16; TEMP 37.1; O2SAT 93; BMI 45.1
[2021-03-01 18:01] VITALS: BMI 45.0
[2021-03-01 18:05] VITALS: O2SAT 99
--- NOTE | 2021-03-01 18:53 | EKG12_ITS ---
Test Reason : EDEMA Blood Pressure : / mmHG Vent. Rate : 074 BPM Atrial Rate : 074 BPM P-R Int : 146 ms QRS Dur : 084 ms QT Int : 376 ms P-R-T Axes : 051 031 034 degrees QTc Int : 417 ms Normal sinus rhythm Normal ECG Confirmed by MICHEL STEARNS, DK ([id number]), film and video editor ADRIANE ANTUNEZ ([id number]) on 03/04/2021 12:49:49 PM Referred By: CHUCK Confirmed By:DRAGAN PEARSON MD
--- NOTE | 2021-03-01 18:54 | EX.ED.DYSGE1 ---
HPI History of Present Illness Chief Complaint: Edema Informant: patient Onset/Context/Timing Onset: Days Context: Gradual Onset Timing: Continuous Current Severity: Mild Narrative Narrative: Six 5-year-old female has known history of chronic bilateral lower extremity lymphedema treated at the [facility] care center. She has a history of COPD, hypertension, sleep apnea and pulmonary hypertension also. She has a history of A. fib she is on Xarelto. She has had prior history of DVTs. To states that her chronic lymphedema which was diagnosed a year ago has recently gotten worse. She denies any recent illness. Prior similar symptoms: Yes Recent Illness/Hospitalization: No [facility] Medical History Anemia Arthritis Asthma Back problem Bone fracture Chronic bronchitis Chronic pain COPD (chronic obstructive pulmonary disease) CPAP (continuous positive airway pressure) dependence Crohns disease Fibromyalgia Former smoker Gallstones Gastrointestinal distress GERD (gastroesophageal reflux disease) History of blood transfusion History of echocardiogram HTN (hypertension) Immunodeficiency disorder, selective immunoglobulin OA (osteoarthritis) SARAHY (obstructive sleep apnea) Osteopenia Osteoporosis Pancreatic divisum PNE Pulmonary HTN Seasonal allergies Skin cancer Sleep apnea Vitamin deficiency Home Medications erythromycin 1 applic OPHTHALMIC QHS 06/20/14 [History Last Taken 10/18/20] morphine 15 mg PO TID 10/05/18 [History Last Taken 10/19/20] rivaroxaban 20 mg PO DAILY 03/21/20 [History Last Taken 10/19/20] levothyroxine 25 mcg tablet 50 mcg PO DAILY tab 05/29/20 [History Last Taken 10/19/20] pantoprazole 40 mg tablet,delayed release 40 mg PO DAILY PRN 05/29/20 [History Last Taken Unknown] prednisone 20 mg tablet 10 mg PO DAILY@0800 tab 05/29/20 [History Last Taken 10/19/20] budesonide-formoterol HFA 160 mcg-4.5 mcg/actuation aerosol inhaler 2 puff INHALATION BID 09/06/20 [History Last Taken 10/19/20] diphenoxylate-atropine 2.5 mg-0.025 mg tablet 6 tablet PO 0400 tablet 09/06/20 [History Last Taken 10/19/20] potassium chloride 20 mEq tablet,extended release(part/cryst) 20 meq PO DAILY PRN PRN tablet 09/06/20 [History Last Taken Unknown] sildenafil (pulm.hypertension) 20 mg tablet 10 mg PO TID tablet 09/06/20 [History Last Taken 10/19/20] amiodarone 100 mg PO DAILY 10/19/20 [History Last Taken 10/19/20] digoxin 125 mcg PO DAILY 10/19/20 [History Last Taken 10/19/20] levofloxacin 750 mg PO DAILY 3 Days #3 tab 10/21/20 [Rx Last Taken Unknown] loratadine [Claritin] 10 mg PO DAILY #30 tab 10/21/20 [Rx Last Taken Unknown] spironolactone 50 mg tablet 50 mg PO BID 10/23/20 [History Last Taken Unknown] Allergy/AdvReac Type Severity Reaction Status Date / Time codeine Allergy Severe ANGIOEDEMA/LEG Verified 03/01/21 17:54 SWELLING Penicillins Allergy Severe ANGIOEDEMA/LEG Verified 03/01/21 17:54 SWELLING Sulfa (Sulfonamide Allergy Severe ANGIOEDEMA/LEG Verified 03/01/21 17:54 Antibiotics) SWELLING sulfasalazine Allergy Severe ANGIOEDEMA/LEG Verified 03/01/21 17:54 [From Azulfidine] SWELLING Family History Father Anemia Heart disease Hypertension CVA (cerebral vascular accident) Mother Arthritis Cancer Osteoporosis Sister Arthritis Lung disease Surgical History History of kyphoplasty (~07/07/16) History of left knee replacement History of pneumonectomy History of resection of small bowel History of right heart catheterization (RHC) (~05/09/16) History of tonsillectomy History of total hysterectomy with bilateral salpingo-oophorectomy (BSO) Leg fracture, right Social History Smoking Status: Former smoker second hand exposure: No alcohol intake: current alcohol intake frequency: other details: SOCIAL substance use type: does not use what type of physical activity do you participate in: none seatbelt use: always 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 No dysuria. Review of Systems ROS Unobtainable: Denies due to encephalopathy Constitutional Constitutional ED: Denies fever(s) Eyes Eyes: Denies change in vision ENT ENT ED: Denies ear pain Cardiovascular Cardiovascular: Denies chest pain Respiratory/Chest Respiratory/Chest: Denies cough or dyspnea Gastrointestinal Gastrointestinal: Denies abdominal pain, diarrhea, nausea or vomiting Genitourinary Genitourinary ED: Denies dysuria Musculoskeletal Musculoskeletal: Denies myalgias Integumentary Denies rash Neurologic Neurologic: Denies headache(s) Psychiatric Psychiatric: Denies depression Endocrine Endocrinology: Denies polyuria Allergic/Immunologic Allergic/Immunologic ED: Denies urticaria EXAM Physical Exam Narrative Exam Narrative: Six 5-year-old female no acute distress vital signs stable afebrile. On 2 L she is 93% she is not hypoxic on her oxygen. H EENT exam unremarkable. Neck nontender no JVD. Lungs clear to auscultation bilaterally. Heart regular rhythm rate about 90 no murmur. Abdomen soft nontender normal bowel sounds no peritoneal signs. Moving all 4 extremities. Both lower extremities have substantial acute on chronic lymphedema. She is able to dorsi plantarflex. She is able to wiggle her toes and has normal sensation. She has significant lymphedema with weeping of clear to straw-colored fluid. She is not old superficial laceration to left lower leg that does not need to be repaired. There is no signs of cellulitis or infection. There is no cords. Const Vital Signs: 03/01/21 17:52 03/01/21 17:59 03/01/21 18:05 Temperature 98.8 F Temperature Source Temporal Pulse Rate 89 Respiratory Rate 16 Respiratory Effort Normal Non-Labored Respiratory Pattern Normal Blood Pressure 147/86 H Blood Pressure Mean 106 Pulse Ox 93 99 Oxygen Delivery Method Nasal Cannula Nasal Cannula Oxygen Flow Rate (L/min) 2 2 Positive well nourished, well developed and obese; Negative for cachectic, contractures or unkempt General Appearance ED: well developed and NAD; Negative for unkempt, cachectic, contractures, cyanotic or diaphoretic Nutritional Appearance: obese; Negative for cachectic HEENT Reports moist mucous membranes Negative for trauma Eyes PERRL and EOMs intact bilaterally Neck no lymphadenopathy, supple and no JVD General: Negative for tenderness Chest Wall inspection of chest normal and palpation of chest normal Resp normal respiratory effort and clear to auscultation bilaterally Effort and Inspection: Negative for pain with movement Auscultation: Negative for rales, rhonchi or wheezes Cardio regular rate, regular rhythm, S1 normal heart sound, S2 normal heart sound and no murmurs GI normal to inspection, nondistended, normoactive bowel sounds, non-tender, non-distended and no masses Inspection: Negative for abdominal distention Auscultation: normoactive bowel sounds Palpation: soft; Negative for tender, guarding or rebound tenderness present Back/Spine no CVA tenderness Extremity Negative for normal to inspection Extremity Narrative: Acute on chronic bilateral lower extremity lymphedema. Recent lower extremity wound left lower leg. No cellulitis. No cords. General Extremety ED: Yes edema; Negative for tenderness General Extremity: edema Neuro oriented x3 Sensorium / Orientation: alert; Negative for orientation impaired, lethargic or stuporous Motor Exam: strength 5/5 throughout Psych mental status grossly normal Appearance: Negative for unkempt Mood & Affect: Negative for depressed or tearful Skin no rashes or lesions noted and No skin turgor normal MDM MDM MDM Narrative Medical decision making narrative: 65-year-old with acute on chronic lymphedema bilateral lower extremities. Screening labs are being obtained. Otherwise exam unremarkable. Repeat exam unchanged. Patient be discharged home. Continue wraps. Continue to elevate her legs. Follow-up with the wound care center. Lab Data Attestation: I reviewed the patient's lab results. Lab results narrative: CBC shows white count 9.9. Hemoglobin 9.9 which is her baseline chronic anemia between 9 and 10. Platelet counts 453. Electrolytes normal gap of 5 normal BUN and creatinine is 0.9. Glucose 115. Labs: Laboratory Results - last 24 hr 03/01/21 03/01/21 18:30 18:30 WBC 9.9 RBC 4.09 L Hgb 9.9 L Hct 34.9 L MCV 85.3 MCH 24.2 L MCHC 28.4 L RDW Std Deviation 53.1 H RDW Coeff of Curtis 16.8 H Plt Count 453 H MPV 9.1 Immature Gran % (Auto) 0.400 Neut % (Auto) 87.2 H Lymph % (Auto) 7.8 L [place] % (Auto) 4.0 Eos % (Auto) 0.0 Baso % (Auto) 0.6 Absolute Neuts (auto) 8.6 H Absolute Lymphs (auto) 0.77 L Nucleated RBC % 0 Sodium 139 Potassium 4.0 Chloride 102 Carbon Dioxide 32.0 Anion Gap 5 BUN 14 Creatinine 0.92 Estim Creat Clear Calc 55.55 Est GFR (MDRD) Af Amer 78 Est GFR (MDRD) Non-Af 64 BUN/Creatinine Ratio 15.1 Glucose 115 H Calcium 8.8 EKG Initial EKG: Attestation: I personally reviewed and interpreted this EKG as follows: Interpretation: Sinus Rhythm and No Acute Injury Pattern Comments: Normal sinus rhythm rate of 74 no acute signs of NC or ischemia no change from September Prior: Unchanged Discharge Plan Triage Chief Complaint: Edema ED Provider: Jaime Martinez Dx/Rx/DC Orders Clinical Impression: Chronic acquired lymphedema Instructions: ED Lymphedema Prescriptions: No Action pantoprazole 40 mg tablet,delayed release (DR/EC) 40 mg PO DAILY PRN (Reason: Acid Reflux) RF: 0 potassium chloride 20 mEq tablet,ER particles/crystals 20 meq PO DAILY PRN PRN (Reason: with water pill) RF: 0 prednisone 20 mg tablet 10 mg PO DAILY@0800 RF: 0 levothyroxine 25 mcg tablet 50 mcg PO DAILY RF: 0 erythromycin 1 APPLIC ointment 1 applic OPHTHALMIC QHS RF: 0 budesonide-formoterol 160-4.5 mcg/actuation HFA aerosol inhaler 2 puff INHALATION BID RF: 0 diphenoxylate-atropine 2.5-0.025 mg tablet 6 tablet PO 0400 RF: 0 sildenafil (pulm.hypertension) 20 mg tablet 10 mg PO TID RF: 0 morphine 15 MG tablet 15 mg PO TID RF: 0 rivaroxaban 20 MG tablet 20 mg PO DAILY RF: 0 amiodarone 200 mg tablet 100 mg PO DAILY RF: 0 digoxin 125 mcg (0.125 mg) tablet 125 mcg PO DAILY RF: 0 levofloxacin 750 mg tablet 750 mg PO DAILY 3 Days Qty: 3 RF: 0 loratadine [Claritin] 10 mg tablet 10 mg PO DAILY Qty: 30 RF: 0 spironolactone 50 mg tablet 50 mg PO BID RF: 0 Primary Care Provider: Julian Brand Chi Referrals: Omari Sarah MD [STAFF PHYSICIAN] - As soon as possible Julian Brand Chi, MD [Primary Care Provider] - Activity Restrictions/Additional Instructions: Your labs and kidney function are your baseline. Your kidney function is completely normal. Chronically anemic. Your EKG was normal. Follow-up with the wound care center and Dr. Sarah. Elevate your legs. Keep doing the wraps. Disposition Disposition: Home, Self Care
[2021-03-01 19:06] LABS: Absolute Lymphocyte Count 0.77 X10^3/uL (0.83-4.51); Absolute Neutrophil Count 8.6 X10^3/uL (2.0-7.7); Basophil# 0.06 X10^3/uL; Basophil% 0.6 % (0-1); Hematocrit 34.9 % (37-47); Hemoglobin 9.9 g/dL (12.0-15.0); Lymphocyte # 0.77 X10^3/ul (0.83-4.51); Lymphocyte % 7.8 % (19-41); Mean Corp Hgb Conc 28.4 g/dL (32-36); Mean Corpuscular Hgb 24.2 pg (27.0-32.0); Mean Corpuscular Volume 85.3 fL (81-99); Mean Platelet Vol. 9.1 fl (6.2-12.0); Monocyte# 0.39 X10^3/uL; NRBC Flagged by Analyzer 0 % (0-5); Neutrophil # 8.61 X10^3/uL (2.7-7.7); Neutrophil % 87.2 % (47-70); Platelet Count 453 K/mm3 (150-450); RBC Distribution Width CV 16.8 % (11.6-14.6); RBC Distribution Width SD 53.1 fl (35.1-43.9); Red Blood Count 4.09 M/mm3 (4.2-5.4); White Blood Count 9.9 K/mm3 (4.4-11.0)
[2021-03-01 19:16] LABS: Anion Gap 5 (5-15); BUN 14 mg/dL (7-18); BUN/Creat Ratio 15.1 RATIO (10-20); Calcium,Total 8.8 mg/dL (8.5-10.1); Chloride 102 mmol/L (98-107); Creatinine, Serum 0.92 mg/dL (0.55-1.02); EST Glomerular Filtration Rate 64 mL/min (>60); Est Glom Filt Rate - Afr Amer 78 mL/min (>60); Estimated Creatinine Clearance 55.55 ml/min; Glucose 115 mg/dL (74-106); Sodium Level 139 mmol/L (136-145)
[2021-03-01 20:44] VITALS: BP 137/89; PULSE 79; RESP 16; O2SAT 97
== END 2021-03-01 20:47 | disposition home or self-care (01) ==
PROVIDERS: Emergency Provider Emergency Medicine; PCP Family Medicine Geriatric Medicine
DX: I89.0 Lymphedema, not elsewhere classified (principal); E66.9 Obesity, unspecified; G47.33 Obstructive sleep apnea (adult) (pediatric); Q45.3 Other congenital malformations of pancreas and pancreatic duct; I48.91 Unspecified atrial fibrillation; Z79.01 Long term (current) use of anticoagulants; Z86.718 Personal history of other venous thrombosis and embolism; Z87.891 Personal history of nicotine dependence
CPT/HCPCS: 36591; 80048; 85025; 93005; 99284; A4216

== ENCOUNTER → 2021-03-13 15:07 | Outpatient (CLI) | payer MEDICARE, OTHER, SELFPAY ==
[2021-03-13 17:07] LABS: Absolute Lymphocyte Count 0.94 X10^3/uL (0.83-4.51); Absolute Neutrophil Count 9.2 X10^3/uL (2.0-7.7); Basophil# 0.07 X10^3/uL; Basophil% 0.6 % (0-1); Eosinophil# 0.08 X10^3/uL; Eosinophils% 0.7 % (0-5); Hemoglobin 9.7 g/dL (12.0-15.0); Lymphocyte # 0.94 X10^3/ul (0.83-4.51); Lymphocyte % 8.7 % (19-41); Mean Corp Hgb Conc 27.7 g/dL (32-36); Mean Corpuscular Hgb 23.9 pg (27.0-32.0); Mean Corpuscular Volume 86.2 fL (81-99); Mean Platelet Vol. 9.5 fl (6.2-12.0); Monocyte# 0.48 X10^3/uL; Monocyte% 4.4 % (0-10); NRBC Flagged by Analyzer 0 % (0-5); Neutrophil # 9.16 X10^3/uL (2.7-7.7); Platelet Count 534 K/mm3 (150-450); RBC Distribution Width CV 17.3 % (11.6-14.6); RBC Distribution Width SD 54.4 fl (35.1-43.9); Red Blood Count 4.06 M/mm3 (4.2-5.4); White Blood Count 10.8 K/mm3 (4.4-11.0)
[2021-03-13 17:28] LABS: Vitamin D,25 Hydroxy 16.1 ng/mL
[2021-03-13 17:41] LABS: ALB/GLOB Ratio 1.1 RATIO (0.9-2.4); AST(SGOT) 16 U/L (15-37); Alanine Aminotransfer ALT/SGPT 21 U/L (13-56); Albumin, Serum 2.9 g/dL (3.2-5.0); Alkaline Phosphatase 65 U/L (45-117); Anion Gap 6 (5-15); BUN 19 mg/dL (7-18); BUN/Creat Ratio 22.8 RATIO (10-20); Calcium,Total 8.6 mg/dL (8.5-10.1); Chloride 101 mmol/L (98-107); Creatinine, Serum 0.83 mg/dL (0.55-1.02); EST Glomerular Filtration Rate 73 mL/min (>60); Est Glom Filt Rate - Afr Amer 88 mL/min (>60); Globulin 2.7 g/dL (2.2-4.2); Glucose 119 mg/dL (74-106); Protein, Total 5.6 g/dL (6.4-8.2); Sodium Level 140 mmol/L (136-145)
== END ==
PROVIDERS: PCP Family Medicine Geriatric Medicine; Visit Provider Family Medicine Geriatric Medicine
DX: E55.9 Vitamin D deficiency, unspecified (principal); I10 Essential (primary) hypertension
CPT/HCPCS: 36415; 80053; 82306; 84443; 85025

== ENCOUNTER → 2021-03-15 09:46 | Outpatient (CLI) | payer MEDICARE, OTHER, SELFPAY ==
[2021-03-15 11:10] LABS: Absolute Lymphocyte Count 0.84 X10^3/uL (0.83-4.51); Absolute Neutrophil Count 9.8 X10^3/uL (2.0-7.7); Basophil# 0.06 X10^3/uL; Basophil% 0.5 % (0-1); Eosinophil# 0.08 X10^3/uL; Eosinophils% 0.7 % (0-5); Hematocrit 34.6 % (37-47); Hemoglobin 9.6 g/dL (12.0-15.0); Immature Platelet Fraction 1.6 % (1.0-7.9); Lymphocyte # 0.84 X10^3/ul (0.83-4.51); Lymphocyte % 7.4 % (19-41); Mean Corp Hgb Conc 27.7 g/dL (32-36); Mean Corpuscular Hgb 24.4 pg (27.0-32.0); Mean Corpuscular Volume 87.8 fL (81-99); Mean Platelet Vol. 9.5 fl (6.2-12.0); Monocyte# 0.51 X10^3/uL; Monocyte% 4.5 % (0-10); NRBC Flagged by Analyzer 0 % (0-5); Neutrophil # 9.75 X10^3/uL (2.7-7.7); Neutrophil % 85.8 % (47-70); Platelet Count 522 K/mm3 (150-450); RBC Distribution Width CV 17.2 % (11.6-14.6); RBC Distribution Width SD 56.1 fl (35.1-43.9); RET-HE 26.5 pg (30-35); Red Blood Count 3.94 M/mm3 (4.2-5.4); Reticulocyte Count 1.52 % (0.5-1.5); White Blood Count 11.4 K/mm3 (4.4-11.0)
[2021-03-15 11:29] LABS: Vitamin B12 209 pg/mL (211-911)
[2021-03-15 12:02] LABS: Ferritin 6 ng/mL (8-252); Iron 37 ug/dL (50-170); Iron Binding Capacity,Total 432 ug/dL (250-450); PERCENT IRON SATURATION 8.6 % (15.0-55.0)
== END ==
PROVIDERS: PCP Family Medicine Geriatric Medicine; Visit Provider Family Medicine Geriatric Medicine
DX: D64.9 Anemia, unspecified (principal)
CPT/HCPCS: 36415; 82607; 82728; 82746; 83540; 83550; 85025; 85045

== ENCOUNTER 2021-03-22 13:15 | Outpatient (RCR) | payer MEDICARE, OTHER, SELFPAY ==
[2021-03-06 08:54] VITALS: BP 161/69; PULSE 94; TEMP 36.3
--- NOTE | 2021-03-06 09:42 | PN.PCM_ITS ---
History of Present Illness Date of Service: 03/06/21 Chief Complaint: Severe swelling, edema, and lymphedema of both lower extr emities History of Wound: 65-year-old female here for severe edema bilateral lower legs and open wound left anterior raymond. She states she hit it against something in the house. Developed a skin care tear that is opened. Patient also has severe lymphedema and states she is using her compression pumps 3 times a day 45 minutes a day. But it is hard to believe that she is wearing Hiram wraps and using the pumps also because her legs have gotten bigger since last time I saw her back in 2019. Patient has seen other providers here and is not following up with any of the Suggestions. She states the CPAP times but the skin is not broken down looks good no seeping noted today. Patient got upset because care of her legs that she is actually doing it properly. She also asked to have these lumps checked down by her ankles they feel like they are more like lipomas underneath the skin. Progress of Wound: The raymond wound is open debrided for small amount of slough and devitalized tissue. Subjective Subjective Patient is concerned about infection in the wound there is no sign of infection reassurance was given. Patient has already started taking Levaquin from a previous visit from other doctor and has taken a week of that. Objective Data Objective Data Left raymond open wound superficial opening will start with Aquacel extra to keep clean and heal. We gave her pad dressings for coverage to make it easier for her to do dressing changes by herself. Patient have to continue with Hiram wraps and using her pumps to get the lymphedema down. She can follow-up in 2 weeks Vital Signs: Vital Signs Temp Pulse BP 97.3 F L 94 161/69 H 03/06/21 08:54 03/06/21 08:54 03/06/21 08:54 Lab / Micro Data Attestation: I reviewed the patient's lab results. Physical Exam Const oriented x3 General Appearance: cooperative Orientation / Consciousness: awake and oriented to person HEENT normocephalic Head and Scalp: normal to inspection Face and Sinus: normal facial exam Nose: external nose normal External Ear: no preauricular adenopathy Eyes PERRL General Eye: normal appearance of both eyes Neck full ROM General: normal visual inspection Thyroid: thyroid normal Resp normal respiratory effort and normal air movement Effort and Inspection: able to speak in complete sentences Cardio regular rate Extremity Negative for normal to inspection Extremity Narrative: Bilateral lower leg lymphedema with wound on left anterior raymond that is open. Recent studies in 2019 show everything is patent and is just lymphedema. General Extremity: normal exam except as noted Skin Rashes: no rashes Wounds: wounds noted Neuro oriented x3 Sensorium / Orientation: awake and alert Debridement Note Debridement Note Wound debrided: Left raymond open wound from trauma Type of Debridement: Excisional debridement Anesthesia Used: 5% Lidocaine Gel Depth: in the subcutaneous layer Percentage of wound debrided: 100 Instrument Used: 3mm curette Tissue Removed: Devitalized tissue and fibrin some slough Severity: Limited To Skin Breakdown Amount of bleeding with debridement: Mild Bleeding Controlled with: Compression and gauze Patient tolerated procedure: Patient tolerated procedure well Post-Debridement Measurements and Additional Note: Post-Debridement Me asurements/Treatment WC - Nurse 1 - General Ulcer Assessment Start: 03/06/21 08:47 Freq: Status: Active Protocol: JUAN ALBERTO Activity Type Activity Date Activity User E-Sign Co-Sign Detail Recorded Client Recorded Date Recorded By Document 03/06/21 08:54 MICHAEL [id number] 03/06/21 08:57 MICHAEL 03/06/21 08:54 - Today's Visit Information Type of service Initial Visit Arrival Mode Ambulatory,Cane Patient Identification Verified (Name & Yes ) Vital Signs Temperature (97.8 F-99.1 F) 97.3 F L Temperature Source Temporal Pulse Rate (60-100) 94 Pulse Location Monitor Blood Pressure (90/60-120/80) 161/69 H Blood Pressure Mean (mm Hg) 99 Source Monitor Position Semi-Fowlers Blood Pressure Location Right Arm History Since Last Visit- (Skip if this is Patient's initial visit) Have you changed medications since your No last visit? Any new allergies or adverse reactions No Had a fall/change in ADL's that may No increase risk of falls Signs or symptoms of abuse and/or No neglect since last visit Have you been in the hospital since your No last visit? Has dressing in place as prescribed No Has compression in place as prescribed N/A Has offloadiing in place as prescribed N/A Experienced any changes in pain level or No management Left Footwear Slipper Right Footwear Slipper Pain Scale: 0-10 Numeric Is Patient Pain Free? Yes - Nurse 1 - General Ulcer Measurement Start: 03/06/21 08:47 Freq: Status: Active Protocol: Activity Type Activity Date Activity User E-Sign Co-Sign Detail Recorded Client Recorded Date Recorded By Document 03/06/21 08:54 KR [id number] 03/06/21 08:57 KR 03/06/21 08:54 Wound Center Nurse 1 #6 LLE -Current Size (cm) - Length 0.5 -Current Size (cm) - Width 3 -Current Size (cm) - Depth 0.1 -Total Square Cm 1.5 -Exudate Amt Medium -Exudate Type Serosanguineous -Wound Margin Distinct, Outline Attached -Granulation Amt Medium (34-66%) -Granulation Quality Red -Necrosis Amt Small (1-33%) -Necrotic Tissue Type Adherent Slough -Texture (Cecilia-wound Skin Appearance) Assessed, Localized Edema ,Scarring -Moisture (Cecilia-wound Skin Appearance) Assessed, Weeping -Color (Cecilia-wound Skin Appearance) Assessed -Temperature (Cecilia-wound Skin No Abnormality Appearance) (Pt Warm) -Tenderness on Palpation (Cecilia-wound No Skin Appearance) -Ulcer Cleansing Soap and Water -Foul Odor after Cleansing No -Anesthetic Used 5% Lidocaine Gel Right Calf (cm) 58.5 Right Ankle (cm) 39 Left Calf (cm) 72 Left Ankle (cm) 41 - Nurse 2 - General Ulcer CM Notes Start: 03/06/21 08:47 Freq: Status: Active Protocol: Activity Type Activity Date Activity User E-Sign Co-Sign Detail Recorded Client Recorded Date Recorded By Document 03/06/21 09:20 MW [id number] 03/06/21 09:25 MW 03/06/21 09:20 Wound Center Nurse 2 #6 LLE -Time 09:21 -Correct Patient Yes -Correct Side, Site, Position Yes -Correct Procedure Yes -Procedure Performed Yes -Type of Procedure Debridement -Clinical Debridement Subcutaneous -Tissue Removed Subcutaneous -Post Debridement (cm) - Length 1.5 -Post Debridement (cm) - Width 2.7 -Post Debridement (cm) - Depth 0.1 -Total Square (Post) (cm) 4.05 -Area of Debridement (cm) - Length 1.5 -Area of Debridement (cm) - Width 2.7 -Total Square (Area) (cm) 4.05 -Tunneling No -Undermining/Tunneling No -Circular Undermining No -Wound/Ulcer Outcome Not Healed -Ulcer Cleansing Rinsed/ Irrigated with Saline -Foul Odor after Cleansing No -Bioengineered Tissue No -Bleeding Controlled with Pressure -Offloading No -Treatment Response Procedure Tolerated Well -Debridement - Subq, 1st 20sq cm Yes Pain Scale: 0-10 Numeric Is Patient Pain Free? Yes Assessment/Plan Assessment/Plan (1) Chronic acquired lymphedema: CODE(S): I89.0 - Lymphedema, not elsewhere classified (2) Nonhealing nonsurgical wound limited to breakdown of skin: CODE(S): T14.8XXA - Other injury of unspecified body region, initial encounter PLAN: Wash legs with antibacterial soap left leg . Apply Aquacel extra to wound base moistened cover with Adaptic and absorbent pad every day Continue wearing Hiram wraps over legs to knees and using compression pumps 45 minutes a day 3 times a day. Follow-up in 2 weeks
[2021-03-19 09:16] VITALS: BP 194/93; PULSE 110; RESP 22; TEMP 36.9
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
[2021-03-22 13:10] VITALS: BP 145/83; PULSE 99; RESP 16; TEMP 36.4
== END 2021-03-24 23:59 ==
LOC: WC 13:15
PROVIDERS: PCP Family Medicine Geriatric Medicine; Visit Provider Surgery
DX: I89.0 Lymphedema, not elsewhere classified (principal); M79.89 Other specified soft tissue disorders; L97.822 Non-pressure chronic ulcer of other part of left lower leg with fat layer exposed; S81.812A Laceration without foreign body, left lower leg, initial encounter; W22.09XA Striking against other stationary object, initial encounter; J44.9 Chronic obstructive pulmonary disease, unspecified; M79.7 Fibromyalgia; K21.9 Gastro-esophageal reflux disease without esophagitis; K50.019 Crohn's disease of small intestine with unspecified complications; E03.9 Hypothyroidism, unspecified; E66.01 Morbid (severe) obesity due to excess calories; I48.0 Paroxysmal atrial fibrillation; G47.33 Obstructive sleep apnea (adult) (pediatric); I10 Essential (primary) hypertension; Z79.52 Long term (current) use of systemic steroids; Z87.891 Personal history of nicotine dependence; Z79.899 Other long term (current) drug therapy; Z79.01 Long term (current) use of anticoagulants; Z68.41 Body mass index [BMI] 40.0-44.9, adult; Z86.711 Personal history of pulmonary embolism
CPT/HCPCS: 11042; 29580; 29581; 99213; G0463

== ENCOUNTER → 2021-04-12 10:29 | Outpatient (CLI) | payer MEDICARE, OTHER, SELFPAY ==
[2021-04-12 16:22] LABS: Amphetamine Urine VISTA NEGATIVE (<1000 ng/mL); Barbiturate Urine VISTA NEGATIVE (< 200 ng/mL); Benzodiazepine Urine VISTA NEGATIVE (< 200 ng/mL); Cocaine Urine VISTA NEGATIVE (< 300 ng/mL); Ecstacy Urine VISTA NEGATIVE (< 500 ng/mL); Methadone Urine VISTA NEGATIVE (< 300 ng/mL); PCP Urine VISTA NEGATIVE (< 25 ng/mL); THC Urine VISTA NEGATIVE (< 50 ng/mL); Vista UDS pH Range 5
== END ==
PROVIDERS: PCP Family Medicine Geriatric Medicine; Referring Provider Anesthesiology Pain Medicine; Visit Provider Anesthesiology Pain Medicine
DX: F11.20 Opioid dependence, uncomplicated (principal)
CPT/HCPCS: 80307

== ENCOUNTER → 2021-04-16 15:11 | Outpatient (CLI) | payer MEDICARE, OTHER, SELFPAY ==
[2021-04-16 17:05] LABS: Absolute Lymphocyte Count 0.71 X10^3/uL (0.83-4.51); Absolute Neutrophil Count 9.8 X10^3/uL (2.0-7.7); Basophil# 0.04 X10^3/uL; Basophil% 0.4 % (0-1); Hematocrit 36.4 % (37-47); Hemoglobin 10.4 g/dL (12.0-15.0); Lymphocyte # 0.71 X10^3/ul (0.83-4.51); Lymphocyte % 6.4 % (19-41); Mean Corp Hgb Conc 28.6 g/dL (32-36); Mean Corpuscular Hgb 24.1 pg (27.0-32.0); Mean Corpuscular Volume 84.3 fL (81-99); Mean Platelet Vol. 9.3 fl (6.2-12.0); Monocyte# 0.38 X10^3/uL; Monocyte% 3.4 % (0-10); NRBC Flagged by Analyzer 0 % (0-5); Neutrophil # 9.83 X10^3/uL (2.7-7.7); Neutrophil % 88.9 % (47-70); Platelet Count 595 K/mm3 (150-450); RBC Distribution Width CV 15.8 % (11.6-14.6); RBC Distribution Width SD 48.2 fl (35.1-43.9); Red Blood Count 4.32 M/mm3 (4.2-5.4); White Blood Count 11.1 K/mm3 (4.4-11.0)
== END ==
PROVIDERS: PCP Family Medicine Geriatric Medicine; Visit Provider Family Medicine Geriatric Medicine
DX: D64.9 Anemia, unspecified (principal)
CPT/HCPCS: 36415; 85025

== ENCOUNTER 2021-04-23 09:00 | Outpatient (RCR) | payer MEDICARE, OTHER, SELFPAY ==
[2021-03-25 00:31] VITALS: BP 145/83; PULSE 99; RESP 16; TEMP 36.4
[2021-03-26 09:15] VITALS: BP 170/73; PULSE 100; RESP 22; TEMP 36.8
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
[2021-03-29 13:19] VITALS: BP 163/80; PULSE 104; RESP 18; TEMP 36.1
[2021-04-02 09:25] VITALS: BP 170/80; PULSE 83; RESP 22; TEMP 36.6
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
[2021-04-05 13:27] VITALS: RESP 22; TEMP 36.6
[2021-04-09 10:10] VITALS: BP 180/99; PULSE 99; RESP 20; TEMP 36.5
--- NOTE | 2021-04-09 13:38 | HP.PCM_ITS ---
History of Present Illness Date of Service: 04/09/21 Chief Complaint: Severe swelling, edema, and lymphedema of both lower extr emities History of Wound: This is a 65-year-old female with multiple pre-existing medical problems. She presents with severe swelling and edema in her lower extremities bilaterally, and recent open ulcerations on the left anterior tibial surface. The patient has a longstanding history of swelling, edema, and lymphedema in her lower extremities. She has been treated for these problems several times in the past. Largely due to noncompliance, patient has returned repeatedly for treatment of the same problems. She admits to sleeping in a recliner, against prior advice. She has mechanical pneumatic compression pumps, which she claims to use 3-4 times daily. She has been previously referred to the lymphedema clinic for assistance with her lymphedema, but has failed to go. She is currently using Aquacel Extra topically to the ulcerations on the left pretibial area. [facility] Medical History Anemia Arthritis Asthma Back problem Bone fracture Chronic bronchitis Chronic pain COPD (chronic obstructive pulmonary disease) CPAP (continuous positive airway pressure) dependence Crohns disease Fibromyalgia Former smoker Gallstones Gastrointestinal distress GERD (gastroesophageal reflux disease) History of blood transfusion History of echocardiogram HTN (hypertension) Immunodeficiency disorder, selective immunoglobulin OA (osteoarthritis) SARAHY (obstructive sleep apnea) Osteopenia Osteoporosis Pancreatic divisum PNE Pulmonary HTN Seasonal allergies Skin cancer Sleep apnea Vitamin deficiency Home Medications erythromycin 1 applic OPHTHALMIC QHS 06/20/14 [History Last Taken 10/18/20] morphine 15 mg PO TID 10/05/18 [History Last Taken 10/19/20] levothyroxine 25 mcg tablet 50 mcg PO DAILY tab 05/29/20 [History Last Taken 10/19/20] pantoprazole 40 mg tablet,delayed release 40 mg PO DAILY PRN 05/29/20 [History Last Taken Unknown] prednisone 20 mg tablet 10 mg PO DAILY@0800 tab 05/29/20 [History Last Taken 10/19/20] budesonide-formoterol HFA 160 mcg-4.5 mcg/actuation aerosol inhaler 2 puff IN HALATION BID 09/06/20 [History Last Taken 10/19/20] diphenoxylate-atropine 2.5 mg-0.025 mg tablet 6 tablet PO 0400 tablet 04/15/21 [History Last Taken 10/19/20] sildenafil (pulm.hypertension) 20 mg tablet 10 mg PO TID tablet 09/06/20 [History Last Taken 10/19/20] amiodarone 100 mg PO DAILY 10/19/20 [History Last Taken 10/19/20] loratadine [Claritin] 10 mg PO DAILY #30 tab 10/21/20 [Rx Last Taken Unknown] digoxin 125 mcg (0.125 mg) tablet 125 mcg PO DAILY #90 tab 03/05/21 [Rx Last Taken Unknown] rivaroxaban [Xarelto] 20 mg PO DAILY 03/06/21 [History Last Taken Unknown] levofloxacin 750 mg tablet 750 mg PO DAILY 03/15/21 [History Last Taken Unknown] spironolactone 50 mg tablet 50 mg PO DAILY PRN 03/15/21 [History Last Taken Unknown] Allergy/AdvReac Type Severity Reaction Status Date / Time codeine Allergy Severe ANGIOEDEMA/LEG Verified 03/15/21 10:03 SWELLING Penicillins Allergy Severe ANGIOEDEMA/LEG Verified 03/15/21 10:03 SWELLING Sulfa (Sulfonamide Allergy Severe ANGIOEDEMA/LEG Verified 03/15/21 10:03 Antibiotics) SWELLING sulfasalazine Allergy Severe ANGIOEDEMA/LEG Verified 03/15/21 10:03 [From Azulfidine] SWELLING Family History Father Anemia Heart disease Hypertension CVA (cerebral vascular accident) Mother Arthritis Cancer Osteoporosis Sister Arthritis Lung disease Surgical History History of kyphoplasty (~07/07/16) History of left knee replacement History of pneumonectomy History of resection of small bowel History of right heart catheterization (RHC) (~05/09/16) History of tonsillectomy History of total hysterectomy with bilateral salpingo-oophorectomy (BSO) Leg fracture, right Social History Smoking Status: Former smoker second hand exposure: No alcohol intake: current alcohol intake frequency: other details: SOCIAL substance use type: does not use what type of physical activity do you participate in: none seatbelt use: always 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 Vital Signs Vital Signs Vital Signs: 04/09/21 10:10 Temperature 97.7 F L Temperature Source Temporal Pulse Rate 99 Respiratory Rate 20 H Blood Pressure 180/99 H Blood Pressure Mean 126 Blood Pressure Source Monitor Blood Pressure Position Sitting Blood Pressure Location Left Arm Oxygen Delivery Method Room Air Physical Exam Const alert, oriented x3, no apparent distress and well nourished General Appearance: cooperative and well developed Orientation / Consciousness: awake, oriented to person, oriented to place and oriented to time HEENT normocephalic and head/scalp atraumatic Head and Scalp: normal to inspection, normocephalic and atraumatic External Ear: external ears normal Eyes PERRL and EOMs intact bilaterally General Eye: normal appearance of both eyes Resp normal respiratory effort, normal air movement, no retractions and no use of accessory muscles Effort and Inspection: able to speak in complete sentences Extremity no calf tenderness Extremity Narrative: Severe swelling, edema, and lymphedema persist in the patient's lower extremities bilaterally, though with signs of improvement. General Extremity: Negative for clubbing or cyanosis Skin Wound Narrative: The ulceration on the left anterolateral calf persists. It is significantly smaller in size. Dimensions are documented elsewhere. There is a small amount of bioburden. There is no sign of infection or cellulitis. Neuro oriented x3, CN's II-XII intact bilaterally and moves all extremities Sensorium / Orientation: awake, alert, oriented to person, oriented to place and oriented to time Psych Appearance: grossly normal and appropriate Attitude: calm Activity / Motor Behavior: appropriate eye contact Speech: normal speech Mood & Affect: euthymic mood Thought Process: normal thought process Thought Content: normal thought content Attention / Concentration: attention grossly intact Debridement Note Debridement Note Wound debrided: Left anterolateral calf Laterality: Left Type of Debridement: Excisional debridement Anesthesia Used: 5% Lidocaine Gel Depth: Down to and including healthy tissue and in the subcutaneous layer Percentage of wound debrided: 100 Instrument Used: 5mm curette Tissue Removed: Bioburden Severity: Fat Layer Exposed Amount of bleeding with debridement: Mild Bleeding Controlled with: Compression and gauze Patient tolerated procedure: Patient tolerated procedure well Post-Debridement Measurements and Additional Note: Post-Debridement Measurements/Treatment BRANDO - Nurse 1 - General Ulcer Assessment Start: 03/26/21 09:15 Freq: Status: Active Protocol: WC.LOWEXT Activity Type Activity Date Activity User E-Sign Co-Sign Detail Recorded Client Recorded Date Recorded By Document 03/26/21 09:15 DL [id number] 03/26/21 09:24 DL Document 03/29/21 13:19 RB [id number] 03/29/21 13:21 RB Document 04/02/21 09:25 DL [id number] 04/02/21 09:33 DL Document 04/05/21 13:27 DL [id number] 04/05/21 13:29 DL Document 04/09/21 10:10 MW [id number] 04/09/21 10:14 MW 03/26/21 03/29/21 04/02/21 09:15 13:19 09:25 WC - Today's Visit Information Type of service Follow-up Visit Nurse-only Follow-up Visit (Physician/CONSTRUCTION PROJECT MGR Visit (Physician/CONSTRUCTION PROJECT MGR ) ) Arrival Mode Ambulatory Ambulatory,Cane Ambulatory Transfer Assistance None None None Accompanied by Patient Identification Verified (Name & Yes Yes Yes ) Patient Requires Transmission-Based No No No Precautions Vital Signs Temperature (97.8 F-99.1 F) 98.2 F 97 F L 97.8 F Temperature Source Temporal Temporal Temporal Pulse Rate (60-100) 100 104 H 83 Pulse Location Monitor Monitor Monitor Respiratory Rate (12-18) 22 H 18 22 H Respiratory rate source Observation Observation Observation Oxygen Delivery Method Blood Pressure (90/60-120/80) 170/73 H 163/80 H 170/80 H Blood Pressure Mean 105 107 110 Source Monitor Monitor Monitor Position Semi-Fowlers Blood Pressure Location Left Arm History Since Last Visit- (Skip if this is Patient's initial visit) Have you changed medications since your No No No last visit? Any new allergies or adverse reactions No No No Had a fall/change in ADL's that may No No No increase risk of falls Signs or symptoms of abuse and/or No No No neglect since last visit Have you been in the hospital since your No No No last visit? Has dressing in place as prescribed Yes Yes Yes Has compression in place as prescribed Yes Yes Yes Has offloadiing in place as prescribed N/A No N/A Experienced any changes in pain level or No No No management Left Footwear Regular Shoe Right Footwear Regular Shoe Pain Scale: 0-10 Numeric Is Patient Pain Free? Yes Yes Yes 04/05/21 04/09/21 13:27 10:10 WC - Today's Visit Information Type of service Nurse-only Follow-up Visit Visit (Physician/CONSTRUCTION PROJECT MGR ) Arrival Mode Ambulatory,Cane Ambulatory Transfer Assistance None None Accompanied by self Patient Identification Verified (Name & Yes Yes ) Patient Requires Transmission-Based No No Precautions Vital Signs Temperature (97.8 F-99.1 F) 97.9 F 97.7 F L Temperature Source Temporal Temporal Pulse Rate (60-100) 99 Pulse Location Monitor Respiratory Rate (12-18) 22 H 20 H Respiratory rate source Observation Observation Oxygen Delivery Method Room Air Blood Pressure (90/60-120/80) 180/99 H Blood Pressure Mean 126 Source Monitor Position Sitting Blood Pressure Location Left Arm History Since Last Visit- (Skip if this is Patient's initial visit) Have you changed medications since your No No last visit? Any new allergies or adverse reactions No No Had a fall/change in ADL's that may No No increase risk of falls Signs or symptoms of abuse and/or No No neglect since last visit Have you been in the hospital since your No No last visit? Has dressing in place as prescribed Yes Yes Has compression in place as prescribed Yes Yes Has offloadiing in place as prescribed N/A Experienced any changes in pain level or No No management Left Footwear Slipper Regular Shoe Right Footwear Slipper Regular Shoe Pain Scale: 0-10 Numeric Is Patient Pain Free? Yes Yes - Nurse 1 - General Ulcer Measurement Start: 03/26/21 09:15 Freq: Status: Active Protocol: Activity Type Activity Date Activity User E-Sign Co-Sign Detail Recorded Client Recorded Date Recorded By Document 03/26/21 09:15 DL [id number] 03/26/21 09:24 DL Document 03/29/21 13:19 RB [id number] 03/29/21 13:21 RB Document 04/02/21 09:25 DL [id number] 04/02/21 09:33 DL Document 04/05/21 13:27 DL [id number] 04/05/21 13:29 DL Document 04/09/21 10:10 MW [id number] 04/09/21 10:14 MW 03/26/21 03/29/21 04/02/21 09:15 13:19 09:25 Wound Center Nurse 1 #7 LLE Sup -Combined with other wound -Current Size (cm) - Length 2 1.8 -Current Size (cm) - Width 1.5 0.7 -Current Size (cm) - Depth 0.3 0.2 -Total Square Cm 3.0 1.26 -Photo Taken No No -Epithelialization -Tunneling No -Undermining/Tunneling No -Circular Undermining No -Exudate Amt Small Small Medium -Exudate Type Serosanguineous Serosanguineous Serosanguineous -Wound Margin Distinct, Distinct, Distinct, Outline Outline Outline Attached Attached Attached -Granulation Amt Large (67-100%) Large (67-100%) Medium (34-66%) -Granulation Quality Red [place],Red -Slough/Fibrin Yes -Necrosis Amt Small (1-33%) Small (1-33%) Medium (34-66%) -Necrotic Tissue Type Adherent Slough Adherent Slough Adherent Slough -Structure Exposed N/A N/A -Texture (Cecilia-wound Skin Appearance) Scarring Assessed Assessed -Moisture (Cecilia-wound Skin Appearance) No Abnormality Assessed Dry/Scaly -Color (Cecilia-wound Skin Appearance) Hemosiderin Assessed Assessed Staining -Temperature (Cecilia-wound Skin No Abnormality No Abnormality No Abnormality Appearance) (Pt Warm) (Pt Warm) (Pt Warm) -Tenderness on Palpation (Cecilia-wound No No No Skin Appearance) -Ulcer Cleansing Rinsed/ Wound Cleanser Soap and Water Irrigated with Saline -Foul Odor after Cleansing No No No -Anesthetic Used 4% Lidocaine 5% Lidocaine Solution Gel #6 LLE -Current Size (cm) - Length 0.1 -Current Size (cm) - Width 0.1 -Current Size (cm) - Depth 0.1 -Total Square Cm 0.01 -Photo Taken No -Exudate Amt None Present -Wound Margin Flat & Intact -Granulation Amt Large (67-100%) -Granulation Quality [place] -Necrosis Amt Small (1-33%) -Necrotic Tissue Type Eschar -Structure Exposed N/A -Texture (Cecilia-wound Skin Appearance) Scarring -Moisture (Cecilia-wound Skin Appearance) Dry/Scaly -Color (Cecilia-wound Skin Appearance) Hemosiderin Staining -Temperature (Cecilia-wound Skin No Abnormality Appearance) (Pt Warm) -Tenderness on Palpation (Cecilia-wound No Skin Appearance) -Ulcer Cleansing Soap and Water -Foul Odor after Cleansing No -Anesthetic Used 4% Lidocaine Solution Lower Limb Edema Present Right Calf (cm) 55.3 56 Right Ankle (cm) 32 29.5 Left Calf (cm) 51.9 62 Left Ankle (cm) 33.5 29.7 04/05/21 04/09/21 13:27 10:10 Wound Center Nurse 1 #7 LLE Sup -Combined with other wound No -Current Size (cm) - Length 0.5 -Current Size (cm) - Width 0.3 -Current Size (cm) - Depth 0.1 -Total Square Cm 0.15 -Photo Taken No No -Epithelialization Small 1-33% -Tunneling No -Undermining/Tunneling No -Circular Undermining No -Exudate Amt Small -Exudate Type -Wound Margin Flat & Intact -Granulation Amt Large (67-100%) None Present (0 %) -Granulation Quality [place] -Slough/Fibrin Yes -Necrosis Amt Small (1-33%) Medium (34-66%) -Necrotic Tissue Type Adherent Slough Adherent Slough -Structure Exposed N/A -Texture (Cecilia-wound Skin Appearance) Scarring Assessed, Localized Edema -Moisture (Cecilia-wound Skin Appearance) No Abnormality No Abnormality, Dry/Scaly -Color (Cecilia-wound Skin Appearance) Hemosiderin Assessed, Staining Hemosiderin Staining -Temperature (Cecilia-wound Skin No Abnormality No Abnormality Appearance) (Pt Warm) (Pt Warm) -Tenderness on Palpation (Cecilia-wound No Yes Skin Appearance) -Ulcer Cleansing Not Cleansed steril water -Foul Odor after Cleansing No No -Anesthetic Used 4% Lidocaine Solution #6 LLE -Current Size (cm) - Length -Current Size (cm) - Width -Current Size (cm) - Depth -Total Square Cm -Photo Taken -Exudate Amt -Wound Margin -Granulation Amt -Granulation Quality -Necrosis Amt -Necrotic Tissue Type -Structure Exposed -Texture (Cecilia-wound Skin Appearance) -Moisture (Cecilia-wound Skin Appearance) -Color (Cecilia-wound Skin Appearance) -Temperature (Cecilia-wound Skin Appearance) -Tenderness on Palpation (Cecilia-wound Skin Appearance) -Ulcer Cleansing -Foul Odor after Cleansing -Anesthetic Used Lower Limb Edema Present Yes Right Calf (cm) 52 61.8 Right Ankle (cm) 29 32.1 Left Calf (cm) 48 60.7 Left Ankle (cm) 28.5 31.1 WC - Nurse 2 - General Ulcer CM Notes Start: 03/26/21 09:15 Freq: Status: Active Protocol: Activity Type Activity Date Activity User E-Sign Co-Sign Detail Recorded Client Recorded Date Recorded By Document 03/26/21 09:40 PL [id number] 03/26/21 09:42 PL Document 04/02/21 12:17 PL [id number] 04/02/21 12:18 PL Document 04/09/21 13:10 PL [id number] 04/09/21 13:11 PL 03/26/21 04/02/21 04/09/21 09:40 12:17 13:10 Wound Center Nurse 2 #7 LLE Sup -Time 09:35 09:40 10:27 -Correct Patient Yes Yes Yes -Correct Side, Site, Position Yes Yes Yes -Correct Procedure Yes Yes Yes -Procedure Performed Yes Yes Yes -Type of Procedure Debridement Debridement Debridement -Clinical Debridement Subcutaneous Subcutaneous Subcutaneous -Tissue Removed Subcutaneous Subcutaneous Subcutaneous -Post Debridement (cm) - Length 2.0 1.8 0.5 -Post Debridement (cm) - Width 1.5 0.7 0.3 -Post Debridement (cm) - Depth 0.3 0.2 0.1 -Total Square (Post) (cm) 3.00 1.26 0.15 -Area of Debridement (cm) - Length 2.0 1.8 0.5 -Area of Debridement (cm) - Width 1.5 0.7 0.3 -Total Square (Area) (cm) 3.00 1.26 0.15 -Tunneling No No No -Undermining/Tunneling No No No -Circular Undermining No No No -Wound/Ulcer Outcome Not Healed Not Healed Not Healed -Ulcer Cleansing Rinsed/ Rinsed/ Rinsed/ Irrigated with Irrigated with Irrigated with Saline Saline Saline -Foul Odor after Cleansing No No No -Bioengineered Tissue No No No -Bleeding Controlled with Pressure Pressure Pressure -Treatment Response Procedure Procedure Procedure Tolerated Well Tolerated Well Tolerated Well -Debridement - Subq, 1st 20sq cm Yes Yes Yes #6 LLE -Procedure Performed No -Wound/Ulcer Outcome Healed- Epithelialized WC - Nurse 3 - General Ulcer D/C NN Start: 03/26/21 09:15 Freq: Status: Active Protocol: Activity Type Activity Date Activity User E-Sign Co-Sign Detail Recorded Client Recorded Date Recorded By Document 03/26/21 09:58 [facility] [id number] 03/26/21 09:59 BMF Document 03/29/21 13:19 RB [id number] 03/29/21 13:21 RB Document 04/02/21 10:04 DL [id number] 04/02/21 10:05 DL Document 04/05/21 13:27 DL [id number] 04/05/21 13:29 DL Document 04/09/21 10:54 MW [id number] 04/09/21 10:55 MW 03/26/21 03/29/21 04/02/21 09:58 13:19 10:04 Wound Care Nurse 3 #7 LLE Sup -Ulcer Cleansing Rinsed/ Wound Cleanser Rinsed/ Irrigated with Irrigated with Saline Saline -Foul Odor after Cleansing No No -Negative Pressure Wound Therapy -Other Dressing aquacel xtra, aquacel extra aqaucel Ex drsg per mw rn -Primary Dressing Covered/Secured with Dry Gauze Dry Gauze Dry Gauze ASHLEY -Lotion applied to leg before compression wrap -Multi-Layered Wrap Application Multi-Layer Multi-Layer Multi-Layer Comp - Bilat ($ Comp - Bilat ($ Comp - Bilat ($ ) ) ) Treatment Response Procedure Procedure Procedure Tolerated Well Tolerated Well Tolerated Well Vital Signs Temperature (97.8 F-99.1 F) 97 F L Temperature Source Temporal Pulse Rate (60-100) 104 H Pulse Location Monitor Respiratory Rate (12-18) 18 Respiratory rate source Observation Blood Pressure (90/60-120/80) 163/80 H Blood Pressure Mean 107 Source Monitor Position Semi-Fowlers Blood Pressure Location Left Arm Pain Scale: 0-10 Numeric Is Patient Pain Free? Yes Yes Yes Teaching: Wound Center Compression Wraps & Stockings -Person Taught -Teaching Method -Response to teaching Control Swelling with Leg Elevation -Person Taught -Teaching Method -Response to teaching Dressing Your Wound -Person Taught -Teaching Method -Response to teaching WC - Visit Discharge Discharge Condition Stable Stable Stable Ambulatory Status Ambulatory Ambulatory,Cane Ambulatory Transportation Private Auto Private Auto Private Auto Accompanied by Medication Reconcilliation completed & No provided to patient/care provider Clinical Summary of Care Provided Yes Facility Type Home Health Orders Sent Yes 04/05/21 04/09/21 13:27 10:54 Wound Care Nurse 3 #7 LLE Sup -Ulcer Cleansing Soap and Water Rinsed/ Irrigated with Saline -Foul Odor after Cleansing No No -Negative Pressure Wound Therapy N/A -Other Dressing aqaucel ex aquacel extra -Primary Dressing Covered/Secured with Dry Gauze Dry Gauze ASHLEY -Lotion applied to leg before Yes compression wrap -Multi-Layered Wrap Application Multi-Layer Multi-Layer Comp - Bilat ($ Comp - Bilat ($ ) ) Treatment Response Procedure Procedure Tolerated Well Tolerated Well Vital Signs Temperature (97.8 F-99.1 F) 97.9 F Temperature Source Temporal Pulse Rate (60-100) Pulse Location Respiratory Rate (12-18) 22 H Respiratory rate source Observation Blood Pressure (90/60-120/80) Blood Pressure Mean Source Position Blood Pressure Location Pain Scale: 0-10 Numeric Is Patient Pain Free? Yes Yes Teaching: Wound Center Compression Wraps & Stockings -Person Taught Patient -Teaching Method Discussion, Demonstration -Response to teaching Verbalize understanding Control Swelling with Leg Elevation -Person Taught Patient -Teaching Method Discussion -Response to teaching Verbalize understanding Dressing Your Wound -Person Taught Patient -Teaching Method Discussion, Demonstration -Response to teaching Verbalize understanding WC - Visit Discharge Discharge Condition Stable Ambulatory Status Ambulatory,Cane Ambulatory,Cane Transportation Private Auto Accompanied by self Medication Reconcilliation completed & No provided to patient/care provider Clinical Summary of Care Provided Yes Facility Type Orders Sent Assessment/Plan Assessment/Plan (1) Lymphedema of lower extremity: CODE(S): I89.0 - Lymphedema, not elsewhere classified QUALIFIERS: Laterality: bilateral Qualified Code(s): I89.0 - Lymphedema, not elsewhere classified (2) Nonhealing nonsurgical wound with fat layer exposed: CODE(S): T14.8XXA - Other injury of unspecified body region, initial encounter (3) Skin ulcer of lower leg with fat layer exposed: CODE(S): L97.902 - Non-pressure chronic ulcer of unspecified part of unspecified lower leg with fat layer exposed QUALIFIERS: Laterality: left Qualified Code(s): L97.922 - Non- pressure chronic ulcer of unspecified part of left lower leg with fat layer exposed (4) Leg swelling: CODE(S): M79.89 - Other specified soft tissue disorders (5) Leg edema: CODE(S): R60.0 - Localized edema (6) Chronic venous insufficiency: CODE(S): I87.2 - Venous insufficiency (chronic) (peripheral) (7) Thrombocytosis: CODE(S): D47.3 - Essential (hemorrhagic) thrombocythemia (8) Crohns disease: CODE(S): K50.90 - Crohn's disease, unspecified, without complications QUALIFIERS: Gastrointestinal tract location: small intestine Digestive disease complication type: unspecified complication Qualified Code(s): K50.019 - Crohn's disease of small intestine with unspecified complications (9) Hypertension: CODE(S): I10 - Essential (primary) hypertension QUALIFIERS: Hypertension type: essential hypertension Qualified Code(s): I10 - Essential (primary) hypertension (10) COPD (chronic obstructive pulmonary disease): CODE(S): J44.9 - Chronic obstructive pulmonary disease, unspecified QUALIFIERS: COPD type: unspecified COPD Qualified Code(s): J44.9 - Chronic obstructive pulmonary disease, unspecified (11) Chronic back pain: CODE(S): M54.9 - Dorsalgia, unspecified; G89.29 - Other chronic pain QUALIFIERS: Back pain location: low back pain Back pain laterali ty: bilateral Sciatica presence: without sciatica Qualified Code(s): M54.5 - Low back pain; G89.29 - Other chronic pain (12) DDD (degenerative disc disease), lumbosacral: CODE(S): M51.37 - Other intervertebral disc degeneration, lumbosacral region (13) Lumbosacral spondylosis: CODE(S): M47.817 - Spondylosis without myelopathy or radiculopathy, lumbosacral region (14) Osteoporosis: CODE(S): M81.0 - Age-related osteoporosis without current pathological fracture (15) Chronic steroid use: CODE(S): DDM2932 - (16) Degenerative disc disease: CODE(S): HRR7205 - (17) Osteoarthritis: CODE(S): M19.90 - Unspecified osteoarthritis, unspecified site (18) Pulmonary hypertension: CODE(S): I27.2 - Other secondary pulmonary hypertension (19) Obstructive sleep apnea: CODE(S): G47.33 - Obstructive sleep apnea (adult) (pediatric) (20) Pulmonary embolism: CODE(S): I26.99 - Other pulmonary embolism without acute cor pulmonale (21) Hypogammaglobulinemia: CODE(S): D80.1 - Nonfamilial hypogammaglobulinemia (22) Personal history of skin cancer: CODE(S): Z85.828 - Personal history of other malignant neoplasm of skin (23) History of pulmonary embolism: CODE(S): Z86.711 - Personal history of pulmonary embolism (24) Morbid obesity with BMI of 40.0-44.9, adult: CODE(S): E66.01 - Morbid (severe) obesity due to excess calories; Z68.41 - Body mass index [BMI] 40.0-44.9, adult (25) Hypothyroidism: CODE(S): E03.9 - Hypothyroidism, unspecified PLAN: This is a 65-year-old female with a longstanding history of bilateral lower extremity swelling, edema, and lymphedema. She has been treated previously at this facility for these problems. Likely due to the patient's noncompliance, she has had difficulty in achieving long-term improvement. She has presented recently with severe swelling, edema, and lymphedema, as well as ulcerations on the left pretibial area. It is noted that a noninvasive lower extremity arterial study performed approximately 10 months ago revealed no evidence of significant arterial occlusive disease. We have again had a lengthy discussion regarding the appropriate means of conservative treatment. These include leg elevation is much as possible, even during daytime hours. Unfortunately, the patient is sleeping in a recliner, the practice which has been strongly discouraged in the past, as well as currently. The patient has been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
[2021-04-12 13:15] VITALS: BP 148/60; PULSE 80; RESP 18; TEMP 36.1
[2021-04-16 08:52] VITALS: RESP 16; TEMP 36.1
--- NOTE | 2021-04-16 14:36 | PCM.WC.HP ---
History of Present Illness Date of Service: 04/16/21 Chief Complaint: Severe swelling, edema, and lymphedema of both lower extremities History of Wound: This is a 65-year-old female with multiple pre-existing medical problems. She presents with severe swelling and edema in her lower extremities bilaterally, and recent open ulcerations on the left anterior tibial surface. The patient has a longstanding history of swelling, edema, and lymphedema in her lower extremities. She has been treated for these problems several times in the past. Largely due to noncompliance, patient has returned repeatedly for treatment of the same problems. She admits to sleeping in a recliner, against prior advice. She has mechanical pneumatic compression pumps, which she claims to use 3-4 times daily. She has been previously referred to the lymphedema clinic for assistance with her lymphedema, but has failed to go. She is currently using Aquacel Extra topically to the ulcerations on the left pretibial area. [facility] Medical History Anemia Arthritis Asthma Back problem Bone fracture Chronic bronchitis Chronic pain COPD (chronic obstructive pulmonary disease) CPAP (continuous positive airway pressure) dependence Crohns disease Fibromyalgia Former smoker Gallstones Gastrointestinal distress GERD (gastroesophageal reflux disease) History of blood transfusion History of echocardiogram HTN (hypertension) Immunodeficiency disorder, selective immunoglobulin OA (osteoarthritis) SARAHY (obstructive sleep apnea) Osteopenia Osteoporosis Pancreatic divisum PNE Pulmonary HTN Seasonal allergies Skin cancer Sleep apnea Vitamin deficiency Home Medications erythromycin 1 applic OPHTHALMIC QHS 06/20/14 [History Last Taken 10/18/20] morphine 15 mg PO TID 10/05/18 [History Last Taken 10/19/20] levothyroxine 25 mcg tablet 50 mcg PO DAILY tab 05/29/20 [History Last Taken 10/19/20] pantoprazole 40 mg tablet,delayed release 40 mg PO DAILY PRN 05/29/20 [History Last Taken Unknown] prednisone 20 mg tablet 10 mg PO DAILY@0800 tab 05/29/20 [History Last Taken 10/19/20] budesonide-formoterol HFA 160 mcg-4.5 mcg/actuation aerosol inhaler 2 puff INHALATION BID 09/06/20 [History Last Taken 10/19/20] diphenoxylate-atropine 2.5 mg-0.025 mg tablet 6 tablet PO 0400 tablet 09/06/20 [History Last Taken 10/19/20] sildenafil (pulm.hypertension) 20 mg tablet 10 mg PO TID tablet 09/06/20 [History Last Taken 10/19/20] amiodarone 100 mg PO DAILY 10/19/20 [History Last Taken 10/19/20] loratadine [Claritin] 10 mg PO DAILY #30 tab 10/21/20 [Rx Last Taken Unknown] digoxin 125 mcg (0.125 mg) tablet 125 mcg PO DAILY #90 tab 03/05/21 [Rx Last Taken Unknown] rivaroxaban [Xarelto] 20 mg PO DAILY 03/06/21 [History Last Taken Unknown] levofloxacin 750 mg tablet 750 mg PO DAILY 03/15/21 [History Last Taken Unknown] spironolactone 50 mg tablet 50 mg PO DAILY PRN 03/15/21 [History Last Taken Unknown] Allergy/AdvReac Type Severity Reaction Status Date / Time codeine Allergy Severe ANGIOEDEMA/LEG Verified 03/15/21 10:03 SWELLING Penicillins Allergy Severe ANGIOEDEMA/LEG Verified 03/15/21 10:03 SWELLING Sulfa (Sulfonamide Allergy Severe ANGIOEDEMA/LEG Verified 03/15/21 10:03 Antibiotics) SWELLING sulfasalazine Allergy Severe ANGIOEDEMA/LEG Verified 03/15/21 10:03 [From Azulfidine] SWELLING Family History Father Anemia Heart disease Hypertension CVA (cerebral vascular accident) Mother Arthritis Cancer Osteoporosis Sister Arthritis Lung disease Surgical History History of kyphoplasty (~07/07/16) History of left knee replacement History of pneumonectomy History of resection of small bowel History of right heart catheterization (RHC) (~05/09/16) History of tonsillectomy History of total hysterectomy with bilateral salpingo-oophorectomy (BSO) Leg fracture, right Social History Smoking Status: Former smoker second hand exposure: No alcohol intake: current alcohol intake frequency: other details: SOCIAL substance use type: does not use what type of physical activity do you participate in: none seatbelt use: always 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 Vital Signs Vital Signs Vital Signs: 04/16/21 08:52 Temperature 97 F L Temperature Source Temporal Respiratory Rate 16 Oxygen Delivery Method Room Air Physical Exam Const alert, oriented x3, no apparent distress and well nourished General Appearance: cooperative and well developed Orientation / Consciousness: awake, oriented to person, oriented to place and oriented to time HEENT normocephalic and head/scalp atraumatic Head and Scalp: normal to inspection, normocephalic and atraumatic External Ear: external ears normal Eyes PERRL and EOMs intact bilaterally General Eye: normal appearance of both eyes Resp normal respiratory effort, normal air movement, no retractions and no use of accessory muscles Effort and Inspection: able to speak in complete sentences Extremity no calf tenderness Extremity Narrative: Severe swelling, edema, and lymphedema are noted in the patient's lower extremities bilaterally. General Extremity: Negative for clubbing or cyanosis Skin Wound Narrative: Ulceration on the patient's left pretibial area is now quite small in size. And nearly healed. There is no sign of infection or cellulitis. Dimensions are documented elsewhere. There is a small amount of bioburden. Neuro oriented x3, CN's II-XII intact bilaterally and moves all extremities Sensorium / Orientation: awake, alert, oriented to person, oriented to place and oriented to time Psych Appearance: grossly normal and appropriate Attitude: calm Activity / Motor Behavior: appropriate eye contact Speech: normal speech Mood & Affect: euthymic mood Thought Process: normal thought process Thought Content: normal thought content Attention / Concentration: attention grossly intact Debridement Note Debridement Note Wound debrided: Left pretibial area Laterality: Left Type of Debridement: Excisional debridement Anesthesia Used: 5% Lidocaine Gel Depth: Down to and including healthy tissue and in the subcutaneous layer Percentage of wound debrided: 100 Instrument Used: 3mm curette Tissue Removed: Bioburden Severity: Fat Layer Exposed Amount of bleeding with debridement: Mild Bleeding Controlled with: Compression and gauze Patient tolerated procedure: Patient tolerated procedure well Post-Debridement Measurements and Additional Note: Post-Debridement Measurements/Treatment BRANDO - Nurse 1 - General Ulcer Assessment Start: 03/26/21 09:15 Freq: Status: Active Protocol: JUAN ALBERTO Activity Type Activity Date Activity User E-Sign Co-Sign Detail Recorded Client Recorded Date Recorded By Document 03/26/21 09:15 DL [id number] 03/26/21 09:24 DL Document 03/29/21 13:19 RB [id number] 03/29/21 13:21 RB Document 04/02/21 09:25 DL [id number] 04/02/21 09:33 DL Document 04/05/21 13:27 DL [id number] 04/05/21 13:29 DL Document 04/09/21 10:10 MW [id number] 04/09/21 10:14 MW Document 04/12/21 13:15 RB [id number] 04/12/21 13:17 RB Document 04/16/21 08:52 BMF [id number] 04/16/21 08:58 BMF 03/26/21 03/29/21 04/02/21 09:15 13:19 09:25 WC - Today's Visit Information Type of service Follow-up Visit Nurse-only Follow-up Visit (Physician/EGG SEPARATOR Visit (Physician/EGG SEPARATOR ) ) Arrival Mode Ambulatory Ambulatory,Cane Ambulatory Transfer Assistance None None None Accompanied by Patient Identification Verified (Name & Yes Yes Yes ) Patient Requires Transmission-Based No No No Precautions Vital Signs Temperature (97.8 F-99.1 F) 98.2 F 97 F L 97.8 F Temperature Source Temporal Temporal Temporal Pulse Rate (60-100) 100 104 H 83 Pulse Location Monitor Monitor Monitor Respiratory Rate (12-18) 22 H 18 22 H Respiratory rate source Observation Observation Observation Oxygen Delivery Method Blood Pressure (90/60-120/80) 170/73 H 163/80 H 170/80 H Blood Pressure Mean 105 107 110 Source Monitor Monitor Monitor Position Semi-Fowlers Blood Pressure Location Left Arm History Since Last Visit- (Skip if this is Patient's initial visit) Have you changed medications since your No No No last visit? Any new allergies or adverse reactions No No No Had a fall/change in ADL's that may No No No increase risk of falls Signs or symptoms of abuse and/or No No No neglect since last visit Have you been in the hospital since your No No No last visit? Has dressing in place as prescribed Yes Yes Yes Has compression in place as prescribed Yes Yes Yes Has offloadiing in place as prescribed N/A No N/A Experienced any changes in pain level or No No No management Left Footwear Regular Shoe Right Footwear Regular Shoe Pain Scale: 0-10 Numeric Is Patient Pain Free? Yes Yes Yes 04/05/21 04/09/21 04/12/21 13:27 10:10 13:15 [facility] Today's Visit Information Type of service Nurse-only Follow-up Visit Nurse-only Visit (Physician/EGG SEPARATOR Visit ) Arrival Mode Ambulatory,Cane Ambulatory Ambulatory Transfer Assistance None None None Accompanied by self Patient Identification Verified (Name & Yes Yes Yes ) Patient Requires Transmission-Based No No No Precautions Vital Signs Temperature (97.8 F-99.1 F) 97.9 F 97.7 F L 97 F L Temperature Source Temporal Temporal Temporal Pulse Rate (60-100) 99 80 Pulse Location Monitor Monitor Respiratory Rate (12-18) 22 H 20 H 18 Respiratory rate source Observation Observation Observation Oxygen Delivery Method Room Air Blood Pressure (90/60-120/80) 180/99 H 148/60 H Blood Pressure Mean 126 89 Source Monitor Monitor Position Sitting Sitting Blood Pressure Location Left Arm Left Arm History Since Last Visit- (Skip if this is Patient's initial visit) Have you changed medications since your No No last visit? Any new allergies or adverse reactions No No Had a fall/change in ADL's that may No No increase risk of falls Signs or symptoms of abuse and/or No No neglect since last visit Have you been in the hospital since your No No last visit? Has dressing in place as prescribed Yes Yes Has compression in place as prescribed Yes Yes Has offloadiing in place as prescribed N/A Experienced any changes in pain level or No No management Left Footwear Slipper Regular Shoe Right Footwear Slipper Regular Shoe Pain Scale: 0-10 Numeric Is Patient Pain Free? Yes Yes 04/16/21 08:52 - Today's Visit Information Type of service Follow-up Visit (Physician/EGG SEPARATOR ) Arrival Mode Ambulatory,Cane Transfer Assistance None Accompanied by Patient Identification Verified (Name & Yes ) Patient Requires Transmission-Based No Precautions Vital Signs Temperature (97.8 F-99.1 F) 97 F L Temperature Source Temporal Pulse Rate (60-100) Pulse Location Respiratory Rate (12-18) 16 Respiratory rate source Observation Oxygen Delivery Method Room Air Blood Pressure (90/60-120/80) Blood Pressure Mean Source Position Blood Pressure Location History Since Last Visit- (Skip if this is Patient's initial visit) Have you changed medications since your No last visit? Any new allergies or adverse reactions No Had a fall/change in ADL's that may No increase risk of falls Signs or symptoms of abuse and/or No neglect since last visit Have you been in the hospital since your No last visit? Has dressing in place as prescribed No Has compression in place as prescribed No Has offloadiing in place as prescribed N/A Experienced any changes in pain level or No management Left Footwear Slipper Right Footwear Slipper Pain Scale: 0-10 Numeric Is Patient Pain Free? Yes WC - Nurse 1 - General Ulcer Measurement Start: 03/26/21 09:15 Freq: Status: Active Protocol: Activity Type Activity Date Activity User E-Sign Co-Sign Detail Recorded Client Recorded Date Recorded By Document 03/26/21 09:15 DL [id number] 03/26/21 09:24 DL Document 03/29/21 13:19 RB [id number] 03/29/21 13:21 RB Document 04/02/21 09:25 DL [id number] 04/02/21 09:33 DL Document 04/05/21 13:27 DL [id number] 04/05/21 13:29 DL Document 04/09/21 10:10 MW [id number] 04/09/21 10:14 MW Document 04/16/21 08:52 BMF [id number] 04/16/21 08:58 BMF 03/26/21 03/29/21 04/02/21 09:15 13:19 09:25 Wound Center Nurse 1 #7 LLE Sup -Combined with other wound -Current Size (cm) - Length 2 1.8 -Current Size (cm) - Width 1.5 0.7 -Current Size (cm) - Depth 0.3 0.2 -Total Square Cm 3.0 1.26 -Photo Taken No No -Epithelialization -Tunneling No -Undermining/Tunneling No -Circular Undermining No -Exudate Amt Small Small Medium -Exudate Type Serosanguineous Serosanguineous Serosanguineous -Wound Margin Distinct, Distinct, Distinct, Outline Outline Outline Attached Attached Attached -Granulation Amt Large (67-100%) Large (67-100%) Medium (34-66%) -Granulation Quality Red [place],Red -Slough/Fibrin Yes -Necrosis Amt Small (1-33%) Small (1-33%) Medium (34-66%) -Necrotic Tissue Type Adherent Slough Adherent Slough Adherent Slough -Structure Exposed N/A N/A -Texture (Cecilia-wound Skin Appearance) Scarring Assessed Assessed -Moisture (Cecilia-wound Skin Appearance) No Abnormality Assessed Dry/Scaly -Color (Cecilia-wound Skin Appearance) Hemosiderin Assessed Assessed Staining -Temperature (Cecilia-wound Skin No Abnormality No Abnormality No Abnormality Appearance) (Pt Warm) (Pt Warm) (Pt Warm) -Tenderness on Palpation (Cecilia-wound No No No Skin Appearance) -Ulcer Cleansing Rinsed/ Wound Cleanser Soap and Water Irrigated with Saline -Foul Odor after Cleansing No No No -Anesthetic Used 4% Lidocaine 5% Lidocaine Solution Gel #6 LLE -Current Size (cm) - Length 0.1 -Current Size (cm) - Width 0.1 -Current Size (cm) - Depth 0.1 -Total Square Cm 0.01 -Photo Taken No -Exudate Amt None Present -Wound Margin Flat & Intact -Granulation Amt Large (67-100%) -Granulation Quality [place] -Necrosis Amt Small (1-33%) -Necrotic Tissue Type Eschar -Structure Exposed N/A -Texture (Cecilia-wound Skin Appearance) Scarring -Moisture (Cecilia-wound Skin Appearance) Dry/Scaly -Color (Cecilia-wound Skin Appearance) Hemosiderin Staining -Temperature (Cecilia-wound Skin No Abnormality Appearance) (Pt Warm) -Tenderness on Palpation (Cecilia-wound No Skin Appearance) -Ulcer Cleansing Soap and Water -Foul Odor after Cleansing No -Anesthetic Used 4% Lidocaine Solution Lower Limb Edema Present Right Calf (cm) 55.3 56 Right Ankle (cm) 32 29.5 Left Calf (cm) 51.9 62 Left Ankle (cm) 33.5 29.7 04/05/21 04/09/21 04/16/21 13:27 10:10 08:52 Wound Center Nurse 1 #7 LLE Sup -Combined with other wound No No -Current Size (cm) - Length 0.5 1.6 -Current Size (cm) - Width 0.3 0.2 -Current Size (cm) - Depth 0.1 0.1 -Total Square Cm 0.15 0.32 -Photo Taken No No No -Epithelialization Small 1-33% Small 1-33% -Tunneling No No -Undermining/Tunneling No No -Circular Undermining No No -Exudate Amt Small None Present -Exudate Type -Wound Margin Flat & Intact Flat & Intact -Granulation Amt Large (67-100%) None Present (0 Small (1-33%) %) -Granulation Quality [place] Red -Slough/Fibrin Yes Yes -Necrosis Amt Small (1-33%) Medium (34-66%) Large (67-100%) -Necrotic Tissue Type Adherent Slough Adherent Slough Eschar -Structure Exposed N/A -Texture (Cecilia-wound Skin Appearance) Scarring Assessed, Assessed, Localized Edema Scarring -Moisture (Cecilia-wound Skin Appearance) No Abnormality No Abnormality, Assessed,Dry/ Dry/Scaly Scaly -Color (Cecilia-wound Skin Appearance) Hemosiderin Assessed, Assessed Staining Hemosiderin Staining -Temperature (Cecilia-wound Skin No Abnormality No Abnormality No Abnormality Appearance) (Pt Warm) (Pt Warm) (Pt Warm) -Tenderness on Palpation (Cecilia-wound No Yes No Skin Appearance) -Ulcer Cleansing Not Cleansed steril water Soap and Water -Foul Odor after Cleansing No No No -Anesthetic Used 4% Lidocaine 5% Lidocaine Solution Gel #6 LLE -Current Size (cm) - Length -Current Size (cm) - Width -Current Size (cm) - Depth -Total Square Cm -Photo Taken -Exudate Amt -Wound Margin -Granulation Amt -Granulation Quality -Necrosis Amt -Necrotic Tissue Type -Structure Exposed -Texture (Cecilia-wound Skin Appearance) -Moisture (Cecilia-wound Skin Appearance) -Color (Cecilia-wound Skin Appearance) -Temperature (Cecilia-wound Skin Appearance) -Tenderness on Palpation (Cecilia-wound Skin Appearance) -Ulcer Cleansing -Foul Odor after Cleansing -Anesthetic Used Lower Limb Edema Present Yes Yes Right Calf (cm) 52 61.8 58.5 Right Ankle (cm) 29 32.1 35.5 Left Calf (cm) 48 60.7 52 Left Ankle (cm) 28.5 31.1 33 WC - Nurse 2 - General Ulcer CM Notes Start: 03/26/21 09:15 Freq: Status: Active Protocol: Activity Type Activity Date Activity User E-Sign Co-Sign Detail Recorded Client Recorded Date Recorded By Document 03/26/21 09:40 PL [id number] 03/26/21 09:42 PL Document 04/02/21 12:17 PL [id number] 04/02/21 12:18 PL Document 04/09/21 13:10 PL [id number] 04/09/21 13:11 PL Document 04/16/21 13:51 PL [id number] 04/16/21 13:52 PL 03/26/21 04/02/21 04/09/21 09:40 12:17 13:10 Wound Center Nurse 2 #7 LLE Sup -Time 09:35 09:40 10:27 -Correct Patient Yes Yes Yes -Correct Side, Site, Position Yes Yes Yes -Correct Procedure Yes Yes Yes -Procedure Performed Yes Yes Yes -Type of Procedure Debridement Debridement Debridement -Clinical Debridement Subcutaneous Subcutaneous Subcutaneous -Tissue Removed Subcutaneous Subcutaneous Subcutaneous -Post Debridement (cm) - Length 2.0 1.8 0.5 -Post Debridement (cm) - Width 1.5 0.7 0.3 -Post Debridement (cm) - Depth 0.3 0.2 0.1 -Total Square (Post) (cm) 3.00 1.26 0.15 -Area of Debridement (cm) - Length 2.0 1.8 0.5 -Area of Debridement (cm) - Width 1.5 0.7 0.3 -Total Square (Area) (cm) 3.00 1.26 0.15 -Tunneling No No No -Undermining/Tunneling No No No -Circular Undermining No No No -Wound/Ulcer Outcome Not Healed Not Healed Not Healed -Ulcer Cleansing Rinsed/ Rinsed/ Rinsed/ Irrigated with Irrigated with Irrigated with Saline Saline Saline -Foul Odor after Cleansing No No No -Bioengineered Tissue No No No -Bleeding Controlled with Pressure Pressure Pressure -Treatment Response Procedure Procedure Procedure Tolerated Well Tolerated Well Tolerated Well -Debridement - Subq, 1st 20sq cm Yes Yes Yes #6 LLE -Procedure Performed No -Wound/Ulcer Outcome Healed- Epithelialized 04/16/21 13:51 Wound Center Nurse 2 #7 LLE Sup -Time 09:20 -Correct Patient Yes -Correct Side, Site, Position Yes -Correct Procedure Yes -Procedure Performed Yes -Type of Procedure Debridement -Clinical Debridement Subcutaneous -Tissue Removed Subcutaneous -Post Debridement (cm) - Length 0.1 -Post Debridement (cm) - Width 0.1 -Post Debridement (cm) - Depth 0.1 -Total Square (Post) (cm) 0.01 -Area of Debridement (cm) - Length 0.1 -Area of Debridement (cm) - Width 0.1 -Total Square (Area) (cm) 0.01 -Tunneling No -Undermining/Tunneling No -Circular Undermining No -Wound/Ulcer Outcome Not Healed -Ulcer Cleansing Rinsed/ Irrigated with Saline -Foul Odor after Cleansing No -Bioengineered Tissue No -Bleeding Controlled with Pressure -Treatment Response Procedure Tolerated Well -Debridement - Subq, 1st 20sq cm Yes #6 LLE -Procedure Performed -Wound/Ulcer Outcome WC - Nurse 3 - General Ulcer D/C NN Start: 03/26/21 09:15 Freq: Status: Active Protocol: Activity Type Activity Date Activity User E-Sign Co-Sign Detail Recorded Client Recorded Date Recorded By Document 03/26/21 09:58 [facility] [id number] 03/26/21 09:59 BMF Document 03/29/21 13:19 RB [id number] 03/29/21 13:21 RB Document 04/02/21 10:04 DL [id number] 04/02/21 10:05 DL Document 04/05/21 13:27 DL [id number] 04/05/21 13:29 DL Document 04/09/21 10:54 MW [id number] 04/09/21 10:55 MW Document 04/12/21 13:15 RB [id number] 04/12/21 13:17 RB Document 04/16/21 09:28 DL [id number] 04/16/21 09:30 DL 03/26/21 03/29/21 04/02/21 09:58 13:19 10:04 Wound Care Nurse 3 #7 LLE Sup -Ulcer Cleansing Rinsed/ Wound Cleanser Rinsed/ Irrigated with Irrigated with Saline Saline -Foul Odor after Cleansing No No -Negative Pressure Wound Therapy -Other Dressing aquacel xtra, aquacel extra aqaucel Ex drsg per mw rn -Primary Dressing Covered/Secured with Dry Gauze Dry Gauze Dry Gauze ASHLEY -Lotion applied to leg before compression wrap -Multi-Layered Wrap Application Multi-Layer Multi-Layer Multi-Layer Comp - Bilat ($ Comp - Bilat ($ Comp - Bilat ($ ) ) ) Treatment Response Procedure Procedure Procedure Tolerated Well Tolerated Well Tolerated Well Vital Signs Temperature (97.8 F-99.1 F) 97 F L Temperature Source Temporal Pulse Rate (60-100) 104 H Pulse Location Monitor Respiratory Rate (12-18) 18 Respiratory rate source Observation Blood Pressure (90/60-120/80) 163/80 H Blood Pressure Mean 107 Source Monitor Position Semi-Fowlers Blood Pressure Location Left Arm Pain Scale: 0-10 Numeric Is Patient Pain Free? Yes Yes Yes Teaching: Wound Center Compression Wraps & Stockings -Person Taught -Teaching Method -Response to teaching Control Swelling with Leg Elevation -Person Taught -Teaching Method -Response to teaching Dressing Your Wound -Person Taught -Teaching Method -Response to teaching WC - Visit Discharge Discharge Condition Stable Stable Stable Ambulatory Status Ambulatory Ambulatory,Cane Ambulatory Transportation Private Auto Private Auto Private Auto Accompanied by Medication Reconcilliation completed & No provided to patient/care provider Clinical Summary of Care Provided Yes Facility Type Home Health Orders Sent Yes 04/05/21 04/09/21 04/12/21 13:27 10:54 13:15 Wound Care Nurse 3 #7 LLE Sup -Ulcer Cleansing Soap and Water Rinsed/ Wound Cleanser Irrigated with Saline -Foul Odor after Cleansing No No -Negative Pressure Wound Therapy N/A -Other Dressing aqaucel ex aquacel extra aquacel extra -Primary Dressing Covered/Secured with Dry Gauze Dry Gauze Dry Gauze ASHLEY -Lotion applied to leg before Yes compression wrap -Multi-Layered Wrap Application Multi-Layer Multi-Layer Multi-Layer Comp - Bilat ($ Comp - Bilat ($ Comp - Bilat ($ ) ) ) Treatment Response Procedure Procedure Procedure Tolerated Well Tolerated Well Tolerated Well Vital Signs Temperature (97.8 F-99.1 F) 97.9 F 97 F L Temperature Source Temporal Temporal Pulse Rate (60-100) 80 Pulse Location Monitor Respiratory Rate (12-18) 22 H 18 Respiratory rate source Observation Observation Blood Pressure (90/60-120/80) 148/60 H Blood Pressure Mean 89 Source Monitor Position Sitting Blood Pressure Location Left Arm Pain Scale: 0-10 Numeric Is Patient Pain Free? Yes Yes Teaching: Wound Center Compression Wraps & Stockings -Person Taught Patient -Teaching Method Discussion, Demonstration -Response to teaching Verbalize understanding Control Swelling with Leg Elevation -Person Taught Patient -Teaching Method Discussion -Response to teaching Verbalize understanding Dressing Your Wound -Person Taught Patient -Teaching Method Discussion, Demonstration -Response to teaching Verbalize understanding WC - Visit Discharge Discharge Condition Stable Stable Ambulatory Status Ambulatory,Cane Ambulatory,Cane Ambulatory,Cane Transportation Private Auto Private Auto Accompanied by self Medication Reconcilliation completed & No No provided to patient/care provider Clinical Summary of Care Provided Yes Yes Facility Type Orders Sent 04/16/21 09:28 Wound Care Nurse 3 #7 LLE Sup -Ulcer Cleansing Soap and Water -Foul Odor after Cleansing No -Negative Pressure Wound Therapy -Other Dressing aquacel Ex -Primary Dressing Covered/Secured with Dry Gauze ASHLEY -Lotion applied to leg before Yes compression wrap -Multi-Layered Wrap Application Multi-Layer Comp - Bilat ($ ) Treatment Response Procedure Tolerated Well Vital Signs Temperature (97.8 F-99.1 F) Temperature Source Pulse Rate (60-100) Pulse Location Respiratory Rate (12-18) Respiratory rate source Blood Pressure (90/60-120/80) Blood Pressure Mean Source Position Blood Pressure Location Pain Scale: 0-10 Numeric Is Patient Pain Free? Yes Teaching: Wound Center Compression Wraps & Stockings -Person Taught -Teaching Method -Response to teaching Control Swelling with Leg Elevation -Person Taught -Teaching Method -Response to teaching Dressing Your Wound -Person Taught -Teaching Method -Response to teaching WC - Visit Discharge Discharge Condition Stable Ambulatory Status Ambulatory,Cane Transportation Accompanied by Medication Reconcilliation completed & provided to patient/care provider Clinical Summary of Care Provided Facility Type Orders Sent Assessment/Plan Assessment/Plan (1) Lymphedema of lower extremity: CODE(S): I89.0 - Lymphedema, not elsewhere classified QUALIFIERS: Laterality: bilateral Qualified Code(s): I89.0 -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
[2021-04-23 08:55] VITALS: BP 145/82; PULSE 107; RESP 22; TEMP 36.6
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
== END 2021-04-23 11:04 | disposition home or self-care (01) ==
LOC: WC 09:00
PROVIDERS: PCP Family Medicine Geriatric Medicine; Visit Provider Surgery
DX: I89.0 Lymphedema, not elsewhere classified (principal); L97.222 Non-pressure chronic ulcer of left calf with fat layer exposed; J44.9 Chronic obstructive pulmonary disease, unspecified; M79.7 Fibromyalgia; M47.817 Spondylosis without myelopathy or radiculopathy, lumbosacral region; K21.9 Gastro-esophageal reflux disease without esophagitis; G47.33 Obstructive sleep apnea (adult) (pediatric); I10 Essential (primary) hypertension; K50.019 Crohn's disease of small intestine with unspecified complications; Z91.19 Patient's noncompliance with other medical treatment and regimen; Z87.891 Personal history of nicotine dependence; Z79.899 Other long term (current) drug therapy; Z79.01 Long term (current) use of anticoagulants; Z79.52 Long term (current) use of systemic steroids; E66.01 Morbid (severe) obesity due to excess calories; Z68.41 Body mass index [BMI] 40.0-44.9, adult; I87.2 Venous insufficiency (chronic) (peripheral); E03.9 Hypothyroidism, unspecified
CPT/HCPCS: 11042; 29581; 99213; G0463

== ENCOUNTER → 2021-04-29 15:09 | Outpatient (CLI) | payer MEDICARE, OTHER, SELFPAY ==
--- NOTE | 2021-04-29 15:17 | CT_ITS ---
STUDY: CT ABDOMEN AND PELVIS WITHOUT CONTRAST REASON FOR EXAM: Female, 65 years old. LUQ ABD PAIN RADIATION DOSAGE (If Supplied By Facility): CTDIvol = ( 22.44 ) mGy, DLP = ( 1083.10 ) mGycm TECHNIQUE: Transaxial images were obtained from the dome of the diaphragm to the symphysis pubis without oral contrast, and without intravenous contrast. Sagittal and coronal images were reconstructed. Individualized dose optimization techniques were used for this CT. COMPARISON: Comparison is made with prior study dated 04/16/2020. FINDINGS: The visualized lung bases are unremarkable. Cardiomegaly. A dual chamber pacemaker is seen. Normal liver. There is a solitary gallstone. Normal spleen. Normal pancreas. Normal bilateral adrenal glands. Normal right kidney. Normal left kidney. Normal visualized stomach. Normal small intestine. The patient is status post right hemicolectomy. The appendix is visualized and appears normal. Normal abdominal aorta. Normal inferior vena cava. Normal retroperitoneum. Normal urinary bladder. There is absence of the uterus consistent with a prior hysterectomy. Normal abdominal wall. There are diffuse degenerative changes of the visualized lumbar spine. Prior vertebroplasty of the L3 vertebrae. 50% loss of height of the L1 vertebrae and mild degree of loss of height of the L2 vertebrae. CT/Abdomen/Pelvis without Cont IMPRESSION: Solitary gallstone. Status post right hemicolectomy. Electronically Signed: Raul Padilla MD at 15:40 EST , Service support ,
== END ==
PROVIDERS: PCP Family Medicine Geriatric Medicine; Visit Provider Family Medicine Geriatric Medicine
DX: N39.0 Urinary tract infection, site not specified (principal)
CPT/HCPCS: 74176; 87086; 87088

== ENCOUNTER → 2021-05-23 13:21 | Outpatient (CLI) | payer MEDICARE, OTHER, SELFPAY ==
--- NOTE | 2021-05-23 13:24 | BI_ITS ---
MAMMOGRAPHY - BILATERAL SCREENING 3-D TOMOSYNTHESIS REASON FOR EXAM: Female, 65 years old. SCREENING PERTINENT HISTORY: No significant family history. TECHNIQUE: 2-D mammograms and 3-D Tomosynthesis of the breast (s) were performed. CAD was performed. COMPARISON: 06/01/2017 FINDINGS: The breast composition is composed of scattered fibroglandular density. Scattered benign calcifications are seen. No dense spiculated masses or suspicious microcalcifications are identified. No architectural distortion is identified. There is no skin thickening or retraction. There has been no significant change since the prior study. BI/SCRN MAMM (CAD)W/ALLI BILAT IMPRESSION: No mammographic signs of malignancy. Routine yearly mammograms recommended. ASSESSMENT CATEGORY: BIRADS Category 1: Negative. A letter regarding these results will be sent to the patient by the facility within 30 days. FOLLOW UP RECOMMENDATION: Yearly follow up mammogram recommended. (A) Approximately 10% of breast cancers are not detected by mammography. A normal mammogram should not delay biopsy of a clinically suspicious abnormality. Electronically Signed: Dino Augustin MD at 14:09 EST Tel , Service support ,
== END ==
PROVIDERS: PCP Family Medicine Geriatric Medicine; Referring Provider Family Medicine Geriatric Medicine; Visit Provider Family Medicine Geriatric Medicine
DX: Z12.31 Encounter for screening mammogram for malignant neoplasm of breast (principal)
CPT/HCPCS: 77063; 77067

== ENCOUNTER 2021-05-28 13:00 | Outpatient (RCR) | payer MEDICARE, OTHER, SELFPAY ==
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
--- NOTE | 2021-05-15 13:54 | HP.OTEVAL_ITS ---
Patient's Visit Information RAFIQ ALCANTAR is a 65 year old F, referred to Occupational Therapy by Dr. Blayne Sinha MD, with a diagnosis of lymphedema. Date of Evaluation: 05/15/21 Occupational Therapist: Sarah Frank, OBEY/Jose Elias, CHT - Subjective This 65 year old female was seen for OT eval with dx of lymphedema -. pt states she had been working on open seeping wounds for about a year and a half.- pt states she is using a lymphapress compression pump 4x a day for 60 min- at 45psi- pt states she was going to wound center 2x week and was d/c from there around .- pt states she in now able to put her compression leg sleeves on IND. and has received her compression alternatives (Ferrow wrap velcro closure compression devices) pt only arrived with one - forgot her other one- pt states they came with foot piece but afraid it would not fit her foot - pt did initiate PT and will start in the pool . - Lymphedema (Circumferential Measure) Mid-foot: right 25.5cm left 26cm Ankle: [id number] left 36cm Lower calf: right 60cm left 52cm Largest calf: right 62cm left 48cm Below knee: right 52cm left 48cm Lower Exremity Comments: pt demo with reduction from her last OT apt about a two years ago- - Goals Demonstrate a 20% reduction in edema by d/c: Yes Demonstrate adequate knowledge of self-bangaging by 1st week: Yes Demonstrate adequate knowledge of self-massage by 2nd week: Yes Demonstrate adequate knowledge skin care/prec by 2nd week: Yes Demonstrate adequate knowledge therapeutic exercises by d/c: Yes Select approp compression garment w/donning/care/wear by d/c: Yes Voice need to replace compression garment every 4-6mo by dc: Yes - Rehabilitation General Assessment: pt demo with BLE lymphedema- pt demo need for skilled OT services 2 -3 visits to ed.pt on lymphedema, skin care and use of compression garments. Today therapist ed. pt on need of toe cap or foot piece to mtg. swelling in her toes and foot- pt demo understanding- therapist ed. pt on donning below knee piece and pt was able to to ind. pt to continue with using lotion to help skin integrity and use compression devices daily- pt demo understanding and agree to POC. Rehabilitation Potential: Questionable - Anticipated Interventions Education re Diagnosis, Manual Lymph Drainage, Education re Life-long lymphedema Management, Education re Self-Bandaging Techniques, Education re Skin Care and Precautions, Education re Self Massage Techniques, Home Program - Visit Plan TEXT: Thank you for the opportunity to evaluate your patient. For Medicare and Medicare HMO plans, please review the plan of care and approve it. It will need to be FAXED BACK to us at [phone] for Medicare purposes. Please let me know if there are questions or concerns regarding this plan of care. Physician Signature: Date:
== END 2021-05-28 19:00 | disposition home or self-care (01) ==
LOC: PT 13:00
PROVIDERS: PCP Family Medicine Geriatric Medicine; Referring Provider Surgery; Visit Provider Surgery
DX: I89.0 Lymphedema, not elsewhere classified (principal); R60.0 Localized edema
CPT/HCPCS: 97113; 97162; 97166; 97530

== ENCOUNTER 2021-07-24 13:05 | Outpatient (CLI) | payer MEDICARE, OTHER, SELFPAY ==
--- NOTE | 2021-07-24 13:08 | VDLE_ITS ---
Reason For Study: Edema RIGHT LEFT GSV is normal. GSV is normal. CFV is compressible, spontaneous, phasic, CFV is compressible, spontaneous, phasic, competent and demonstrates normal competent, and demonstrates normal augmentation. augmentation. FV is compressible, spontaneous, phasic, FV is compressible, spontaneous, phasic, competent and demonstrates normal competent and demonstrates normal augmentation. augmentation. POP V is compressible, spontaneous, phasic, POP V is compressible, spontaneous, phasic, competent and demonstrates normal competent and demonstrates normal augmentation. augmentation. T/P Trunk is compressible. T/P Trunk is compressible. PTV is compressible. PTV is compressible. RT PerV is compressible. LT PerV is compressible. Homogenous, non vascular structure noted Rt Very difficult to visualize calf veins due to Pop Fossa to proximal calf measuring 2.75cm x severe edema 5.41cm Patient unable to tolerate compressions in Very difficult to visualize calf veins due to the thigh; relied on color doppler. severe edema. Procedure This is a venous duplex using B-mode, color flow and spectral Doppler. Exam performed in department. A preliminary report was called and/or faxed to Dr. Brand. VL/Venous Duplex US - Dilan Extrem Interpretation Summary No evidence for acute deep venous thrombosis bilateral lower extremities with p atent and compressible bilateral great saphenous veins. Right popliteal fossa nonvascular cystic structure measuring 2.75 x 5.41 cm consistent with a Jerry's cyst. Clinical correlation w ould be appropriate. As noted the calf veins particularly difficult to inspect because of severe zia ma. Ordering Physician: Julian Brand Chi Referring Physician: Julian Brand Chi Performed By: Tahmina Ruiz, KEYANA, RVT
== END 2021-07-24 23:59 | disposition home or self-care (01) ==
LOC: CVS 13:07
PROVIDERS: PCP Family Medicine Geriatric Medicine; Referring Provider Family Medicine Geriatric Medicine; Visit Provider Family Medicine Geriatric Medicine
DX: R60.0 Localized edema (principal)
CPT/HCPCS: 93970

== ENCOUNTER → 2021-09-10 | Outpatient (CLI) | payer MEDICARE, OTHER, SELFPAY ==
[2021-09-10 17:39] LABS: Absolute Lymphocyte Count 1.65 X10^3/uL (0.83-4.51); Absolute Neutrophil Count 9.6 X10^3/uL (2.0-7.7); Basophil# 0.09 X10^3/uL; Basophil% 0.7 % (0-1); Eosinophil# 0.09 X10^3/uL; Eosinophils% 0.7 % (0-5); Hematocrit 36.9 % (37-47); Lymphocyte # 1.65 X10^3/ul (0.83-4.51); Lymphocyte % 13.6 % (19-41); Mean Corp Hgb Conc 29.8 g/dL (32-36); Mean Corpuscular Hgb 26.7 pg (27.0-32.0); Mean Corpuscular Volume 89.6 fL (81-99); Monocyte# 0.64 X10^3/uL; Monocyte% 5.3 % (0-10); NRBC Flagged by Analyzer 0.2 % (0-5); Neutrophil # 9.57 X10^3/uL (2.7-7.7); Neutrophil % 79.3 % (47-70); Platelet Count 543 K/mm3 (150-450); RBC Distribution Width CV 15.2 % (11.6-14.6); RBC Distribution Width SD 50.2 fl (35.1-43.9); Red Blood Count 4.12 M/mm3 (4.2-5.4); White Blood Count 12.1 K/mm3 (4.4-11.0)
[2021-09-10 17:58] LABS: AST(SGOT) 10 U/L (15-37); Alanine Aminotransfer ALT/SGPT 18 U/L (13-56); Albumin, Serum 3.2 g/dL (3.2-5.0); Alkaline Phosphatase 62 U/L (45-117); Anion Gap 4 (5-15); BUN 21 mg/dL (7-18); BUN/Creat Ratio 24.2 RATIO (10-20); Calcium,Total 9.2 mg/dL (8.5-10.1); Chloride 101 mmol/L (98-107); Creatinine, Serum 0.87 mg/dL (0.55-1.02); EST Glomerular Filtration Rate 69 mL/min (>60); Est Glom Filt Rate - Afr Amer 84 mL/min (>60); Globulin 3.3 g/dL (2.2-4.2); Glucose 108 mg/dL (74-106); Potassium 4.5 mmol/L (3.5-5.1); Protein, Total 6.5 g/dL (6.4-8.2); Sodium Level 138 mmol/L (136-145)
[2021-09-12 12:59] LABS: Immunoglobulin G 635 mg/dL (586-1602)
== END | disposition home or self-care (01) ==
LOC: MTLAB 16:24
PROVIDERS: PCP Family Medicine Geriatric Medicine; Referring Provider Nurse Practitioner Family; Visit Provider Nurse Practitioner Family
DX: K50.019 Crohn's disease of small intestine with unspecified complications (principal); D80.1 Nonfamilial hypogammaglobulinemia
CPT/HCPCS: 36415; 80053; 82784; 85025

== ENCOUNTER 2021-09-11 09:36 | Outpatient (CLI) | payer MEDICARE, OTHER, SELFPAY ==
[2021-09-11 12:09] LABS: Absolute Neutrophil Count 7.2 X10^3/uL (2.0-7.7); Basophil# 0.09 X10^3/uL; Basophil% 0.8 % (0-1); Eosinophil# 0.29 X10^3/uL; Eosinophils% 2.5 % (0-5); Hematocrit 37.6 % (37-47); Hemoglobin 11.3 g/dL (12.0-15.0); Lymphocyte % 28.2 % (19-41); Mean Corp Hgb Conc 30.1 g/dL (32-36); Mean Corpuscular Volume 89.7 fL (81-99); Mean Platelet Vol. 9.2 fl (6.2-12.0); Monocyte# 0.83 X10^3/uL; Monocyte% 7.1 % (0-10); NRBC Flagged by Analyzer 0 % (0-5); Neutrophil # 7.16 X10^3/uL (2.7-7.7); Platelet Count 556 K/mm3 (150-450); RBC Distribution Width CV 15.5 % (11.6-14.6); RBC Distribution Width SD 50.9 fl (35.1-43.9); Red Blood Count 4.19 M/mm3 (4.2-5.4); White Blood Count 11.7 K/mm3 (4.4-11.0)
[2021-09-11 12:26] LABS: Vitamin D,25 Hydroxy 25.3 ng/mL
[2021-09-11 12:34] LABS: ALB/GLOB Ratio 0.9 RATIO (0.9-2.4); AST(SGOT) 16 U/L (15-37); Alanine Aminotransfer ALT/SGPT 22 U/L (13-56); Albumin, Serum 3.2 g/dL (3.2-5.0); Alkaline Phosphatase 61 U/L (45-117); Anion Gap 7 (5-15); BUN 20 mg/dL (7-18); BUN/Creat Ratio 23.7 RATIO (10-20); Calcium,Total 9.3 mg/dL (8.5-10.1); Chloride 100 mmol/L (98-107); Creatinine, Serum 0.84 mg/dL (0.55-1.02); EST Glomerular Filtration Rate 71 mL/min (>60); Est Glom Filt Rate - Afr Amer 86 mL/min (>60); Globulin 3.5 g/dL (2.2-4.2); Glucose 88 mg/dL (74-106); Potassium 4.6 mmol/L (3.5-5.1); Protein, Total 6.7 g/dL (6.4-8.2); Sodium Level 138 mmol/L (136-145); Thyroid Stim Hormone (TSH) 3.24 uIU/mL (0.358-3.74)
== END 2021-09-11 23:59 | disposition home or self-care (01) ==
LOC: POLAB3 09:38
PROVIDERS: PCP Family Medicine Geriatric Medicine; Visit Provider Family Medicine Geriatric Medicine
DX: E55.9 Vitamin D deficiency, unspecified (principal); I10 Essential (primary) hypertension
CPT/HCPCS: 36415; 80053; 82306; 84443; 85025

== ENCOUNTER 2021-12-05 12:01 | Outpatient (RCR) | payer MEDICARE, OTHER, SELFPAY ==
--- NOTE | 2021-12-05 13:15 | HP.PTEVAL_ITS ---
Patient's Visit Information RAFIQ ALCANTAR is a 66 year old F referred to Physical Therapy by Dr. Devora Asnecio MD with a diagnosis of LBP and leg pain. Date of Evaluation: 12/05/21 Physical Therapist: Allen Fernandez, PT, ATC - Visit Plan Frequency: 2x /Week Duration: 4-6 Weeks Plan: Aquatic therapy program consisting of B LE stretching and strengthening, corer stab ex's, and HEP - Subjective Pt reports she has had chronic LBP since 2017. Pt reports she has been seeing Dr. Asencio for her LBP receiving multiple procedures over that time span. Pt reports she takes morphine to manage her pain. Pt denies tingling or numbness at this time. Pt does report LE pain that she attributers to having lymphedema over the years. Pt denies sleep difficulty at this time secondary to pain. Pt reports she is fine if she is sitting or lying down, but notes any time she is standing, walking, or negotiating stairs, she has intense pain. Pt reports no recent Dx tests, but notes she did have kyphoplasty performed on her LB in 2019. However, pt has still had to have injections every 2-3 months. 0/10 pain while at rest, 7/10 pain at worst (standing for over an hour while a girl cleaned her garage) - Pain LBP Pain Intensity (Out of 10): 0 Pain Intensity Range: 7 - Objective Neuro: B LE sensation is WNL to light touch. MMT: B LE's are grossly 3+/5 to 4- /5 and painful with testing. ROM: B LE's are WFL when compared bilaterally. Gait: Pt is able to ambulate approximately 140' until needing to rest secondary to fatigue. LB: Pt experiences pain with extension based activity. Pt reports decreased pain with flexion activity. - Balance/Special Test Scores Lower Extremity Functional Score: 18 - Goals Goal 1:: Decrease LBP x 25-50% to aid with tolerance for ambulation Goal Time Frame: 4-6 Weeks Goal 2:: Increase B LE strength x 1 grade to aid with sit to stand transfers Goal Time Frame: 4-6 Weeks Goal 3:: Pt will be able to ambulate 300 feet to aid with community ambulation Goal Time Frame: 4-6 Weeks Goal 4:: I with Hep Goal Time Frame: 4-6 Weeks - Rehabilitation Potential Physical Therapy Diagnosis: Pt has LBP, weakness, and limited tolerance for ambulation secondary to DDD Rehabilitation Potential: Good - Anticipated Interventions Patient/Client Instruction: Educate patient on: Condition, Plan of Care For the Purpose of:: To improve self management Therapeutic Exercise to Include: Strength training, Endurance training, Postural training, Flexibilty training, In an aquatic setting, Dynamic Lumbar Stabilization For the Purpose of:: To decrease pain, To increase ROM, To improve muscle performance and motor function Thank you for the opportunity to evaluate your patient. For Medicare and Medicare HMO plans, please review the plan of care and approve it. It will need to be FAXED BACK to us at [phone] for Medicare purposes. For Medicare only, by signing this I certify the plan of care. Please let me know if there are questions or concerns regarding this plan of care. Physician Signature: Date :
== END 2021-12-05 19:00 | disposition home or self-care (01) ==
LOC: PT 12:01
PROVIDERS: PCP Family Medicine Geriatric Medicine; Referring Provider Anesthesiology Pain Medicine; Visit Provider Anesthesiology Pain Medicine
DX: M54.50 Low back pain, unspecified (principal); M79.605 Pain in left leg
CPT/HCPCS: 97161

== ENCOUNTER → 2021-12-09 | Outpatient (CLI) | payer MEDICARE, OTHER, SELFPAY ==
--- NOTE | 2021-12-09 15:20 | RAD_ITS ---
EXAM: XR CHEST, 2 VIEWS CLINICAL INDICATION: amiodarone therapy TECHNIQUE: Frontal and lateral views of the chest. This report was created using [employer] report generation technology. COMPARISON: XR Chest dated 10/19/2020 FINDINGS: LUNGS AND PLEURAL SPACES: Unremarkable. No consolidation or edema. No pneumothorax. No effusion. HEART: Unremarkable. Normal heart size. MEDIASTINUM: Central airways and mediastinal contour are unremarkable. BONES/JOINTS: Situated kyphosis at the thoracolumbar junction related to chronic appearing compression deformities of the vertebral bodies at the upper lumbar level. SOFT TISSUES: Unremarkable. TUBES, LINES AND DEVICES: Right-sided infusion catheter remains in place. RAD/Chest PA and Lateral IMPRESSION: No acute cardiopulmonary abnormality. Electronically Signed: Isaiah Valentine MD at 11:27 EDT ,
== END | disposition home or self-care (01) ==
LOC: RAD 15:15
PROVIDERS: PCP Family Medicine Geriatric Medicine; Referring Provider Internal Medicine Cardiovascular Disease; Visit Provider Internal Medicine Cardiovascular Disease
DX: I48.0 Paroxysmal atrial fibrillation (principal)
CPT/HCPCS: 71046

== ENCOUNTER → 2022-01-03 | Outpatient (CLI) | payer MEDICARE, OTHER, SELFPAY ==
[2022-01-03 12:51] LABS: Thyroid Stim Hormone (TSH) 2.66 uIU/mL (0.358-3.74)
== END | disposition home or self-care (01) ==
LOC: LAB 11:03
PROVIDERS: PCP Family Medicine Geriatric Medicine; Visit Provider Family Medicine Geriatric Medicine
DX: E03.9 Hypothyroidism, unspecified (principal)
CPT/HCPCS: 36415; 84443

== ENCOUNTER 2022-03-01 02:35 | Inpatient (IN) | payer MEDICARE, OTHER, SELFPAY ==
[2022-03-01] VITALS (14 sets, daily range): BP systolic 123–220; BP diastolic 65–111; PULSE 84–98; RESP 14–18; TEMP 36.3–37.9; O2SAT 79–100; BMI 41.5; BMI 40.8
--- NOTE | 2022-03-01 02:54 | CT_ITS ---
STUDY: CT ABDOMEN AND PELVIS WITHOUT CONTRAST REASON FOR EXAM: Female, 66 years old patient with kidney stone. RADIATION DOSAGE (If Supplied By Facility): CTDIvol = ( 21.00 ) mGy, DLP = ( 982.10 ) mGycm TECHNIQUE: Transaxial images were obtained from the dome of the diaphragm to the symphysis pubis without oral contrast, and without intravenous contrast. Sagittal and coronal images were reconstructed. Individualized dose optimization techniques were used for this CT. COMPARISON: CT abdomen and pelvis dated 04/29/2021. FINDINGS: The visualized lung bases are unremarkable. The visualized portions of the heart appears enlarged. The liver is not imaged in its entirety on this study. The visualized liver is within normal limits in appearance. There is a solitary gallstone. Normal spleen. There is diffuse atrophy of the pancreas. Normal bilateral adrenal glands. There is a nonobstructing calculus within the lower pole of right kidney measuring about 3 mm in size. There is moderate left-sided hydronephrosis and hydroureter secondary to distal ureteral calculus measuring approximately 8.9 x 3.5 mm. Normal visualized stomach. There is no obvious dilated bowel, ascites or pneumoperitoneum. The small bowel has a grossly normal appearance. There is still visible throughout most of the colon. The patient appears to have partial colon resection with some residual dilatation of the right colon. Maximum transverse dimension of the dilated colon is approximately 8.5 cm. There is non-visualization of the appendix. There is minimal atherosclerotic calcification of the abdominal aorta with elongation and tortuosity, but without a demonstrated aneurysm. There is venous distention of the inferior vena cava (IVC). Normal retroperitoneum. Normal urinary bladder. There is absence of the uterus consistent with a prior hysterectomy. There is a severe atrophy of the abdominal wall musculature. The bones are osteopenic. The patient has had kyphoplasty of a compression fracture of L3. There are also compression fractures of L2, L1 and T12. CT/Abdomen/Pelvis without Cont IMPRESSION: 1. Moderately severe left-sided hydronephrosis and hydroureter secondary to distal ureteral calculus. 2. Nonobstructing right-sided renal calculus. 3. Cholelithiasis. Electronically Signed: Toña Hector MD at 4:55 EDT ,
[2022-03-01 02:55] LABS: Bacteria 0 SEEN /hpf (None Seen); Mucous, Urine 0 SEEN /hpf (<or=2+)
[2022-03-01 02:57] LABS: Color, Urine Yellow (Yellow); Glucose, Dipstick Normal (Normal); Ketone-Dipstick 5 mg/dl (Negative); Leukocyte Esterase-Dipstick 100 /ul (Negative); Nitrite-Dipstick Negative (Negative); Occult Blood-Urine 250 /ul (Negative); Protein-Dipstick 30 mg/dl (Negative); Urine Bilirubin Dipstick Negative (Negative); Urine Clarity Sl. Cloudy (Clear); Urine Urobilinogen Normal (Normal)
--- NOTE | 2022-03-01 02:57 | EX.ED.DYSGE1 ---
HPI History of Present Illness Chief Complaint: Abd Pain Informant: patient Narrative Narrative: Patient states she started to just feel blah. This started about 3 days ago. She then developed frequency and hematuria of urination. But no dysuria. She states the urine was cloudy. She does not think she has had a fever. Today she has developed nausea but no vomiting. She is also developed left lower quadrant and left flank pain. She states she has Crohn's but this is not an exacerbation of her Crohn's. She is not having diarrhea. No blood in the stool. She has a gallstone but she has no pain in that area. Although her pain is toward the lower left. She mostly feels nauseated and just does not feel well. [facility] Medical History A-fib Anemia Arthritis Asthma Back problem Bone fracture Chronic bronchitis Chronic pain COPD (chronic obstructive pulmonary disease) CPAP (continuous positive airway pressure) dependence Crohns disease Essential hypertension Fibromyalgia Former smoker Gallstones Gastrointestinal distress GERD (gastroesophageal reflux disease) History of blood transfusion History of echocardiogram HTN (hypertension) Hypertension Immunodeficiency disorder, selective immunoglobulin New onset a-fib OA (osteoarthritis) SARAHY (obstructive sleep apnea) Osteopenia Osteoporosis Pancreatic divisum Paroxysmal atrial fibrillation PNE Pulmonary HTN Seasonal allergies Skin cancer Skin lesion Sleep apnea Vitamin deficiency Home Medications erythromycin 5 mg/gram (0.5 %) eye ointment 1 applic ophthalmic (eye) QHS ROSECA 06/20/14 [History Last Taken 10/18/20] morphine 15 mg immediate release tablet 15 mg PO TID PAIN 10/05/18 [History Last Taken 10/19/20] pantoprazole 40 mg tablet,delayed release 40 mg PO DAILY PRN Acid Reflux 05/29/20 [History Last Taken Unknown] prednisone 20 mg tablet 10 mg PO DAILY@0800 steroid 05/29/20 [History Last Taken 10/19/20] diphenoxylate-atropine 2.5 mg-0.025 mg tablet 6 tablet PO 0400 Diarrhea/Loose Stools 09/06/20 [History Last Taken 10/19/20] calcitriol 0.25 mcg capsule 0.25 mcg PO DAILY 05/29/21 [History Last Taken Unknown] polysaccharide iron complex 150 mg iron capsule (Ferrex) 150 mg PO DAILY PRN SUPPLEMENT 05/29/21 [History Last Taken Unknown] levothyroxine 50 mcg tablet 50 mcg PO DAILY 12/09/21 [History Last Taken Unknown] amiodarone 200 mg tablet 100 mg PO DAILY heart #45 tabs 12/11/21 [Rx Last Taken Unknown] digoxin 125 mcg (0.125 mg) tablet 125 mcg PO DAILY heart #90 tabs 12/11/21 [Rx Last Taken Unknown] rivaroxaban 20 mg tablet (Xarelto) 20 mg PO DAILY #90 tabs 12/11/21 [Rx Last Taken Unknown] loratadine 10 mg tablet (Claritin) 10 mg PO DAILY PRN ALLERGIES 03/01/22 [History Last Taken Unknown] Allergy/AdvReac Type Severity Reaction Status Date / Time codeine Allergy Severe ANGIOEDEMA/LEG Verified 02/11/22 12:17 SWELLING Penicillins Allergy Severe ANGIOEDEMA/LEG Verified 02/11/22 12:17 SWELLING Sulfa (Sulfonamide Allergy Severe ANGIOEDEMA/LEG Verified 02/11/22 12:17 Antibiotics) SWELLING sulfasalazine Allergy Severe ANGIOEDEMA/LEG Verified 02/11/22 12:17 [From Azulfidine] SWELLING Family History Father Anemia Heart disease Hypertension CVA (cerebral vascular accident) Mother Arthritis Cancer Osteoporosis Sister Arthritis Lung disease Surgical History History of kyphoplasty (~07/07/16) History of left knee replacement History of pneumonectomy History of resection of small bowel History of right heart catheterization (RHC) (~05/09/16) History of tonsillectomy History of total hysterectomy with bilateral salpingo-oophorectomy (BSO) Leg fracture, right Social History Smoking Status: Former smoker how long ago did patient quit smokin second hand exposure: No alcohol intake: current alcohol intake frequency: other substance use type: does not use caffeine: Yes Type: carbonated beverages, coffee and tea what type of physical activity do you participate in: none seatbelt use: always 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 Integumentary Denies rash Neurologic Neurologic: Denies headache(s) Endocrine Endocrinology: Denies polydipsia or polyuria Hematologic/Lymphatic Hematologic/Lymphatic: Reports easy bleeding, easy bruising and other Details: Patient does take Xarelto for her intermittent A. fib Allergic/Immunologic Allergic/Immunologic ED: Denies urticaria EXAM Physical Exam Const Vital Signs: 03/01/22 02:37 03/01/22 02:43 03/01/22 05:19 Temperature 98.1 F 98.1 F 97.4 F L Temperature Source Oral Oral Oral Pulse Rate 88 88 89 Respiratory Rate 18 18 14 Blood Pressure 220/95 H 220/95 H 175/111 H Blood Pressure Mean 136 136 132 Pulse Ox 95 95 95 Oxygen Delivery Method Room Air Room Air Room Air Oxygen Flow Rate (L/min) 03/01/22 05:30 03/01/22 05:30 Temperature Temperature Source Pulse Rate Respiratory Rate Blood Pressure Blood Pressure Mean Pulse Ox 79 100 Oxygen Delivery Method Room Air Nasal Cannula Oxygen Flow Rate (L/min) 3 Positive well nourished and well developed Constitutional Narrative: Patient is sitting in a chair holding emesis bag. General Appearance ED: well developed HEENT Reports moist mucous membranes Eyes General Eye ED: Negative for scleral icterus Neck no JVD Chest Wall inspection of chest normal Resp normal respiratory effort and clear to auscultation bilaterally Cardio regular rate and regular rhythm Rate: other Other Details: She has a history of atrial fibrillation but her heart felt sounds quite regular at this time GI GI Narrative: She does have some mild tenderness toward the left lower quadrant but no rebound or guarding. Exam is limited because she wants to sit in a chair as that is more comfortable for her. I am not getting CVA tenderness at this time but she states her back is currently not hurting. Back/Spine no CVA tenderness Extremity Extremity Narrative: Chronic edema no change per patient Neuro oriented x3 Psych mental status grossly normal Skin no rashes or lesions noted MDM MDM MDM Narrative Medical decision making narrative: Patient's CBC shows slight elevation of white count and low hemoglobin. Platelets are up a little bit. Electrolytes are overall relatively normal. Minimally low potassium. Urine shows a large number of red cells but no white cells. Negative nitrites. Just small amount of leukocyte Estrace. CT scan shows nonobstructing right kidney calculus but also left-sided hydronephrosis hydroureter with stranding and 8.9 x 3.5 mm distal ureteral calculus that is likely the source of her symptoms. She also has a large gallstone but is not having symptoms in that area. I discussed the case with urology, Dr. Peña. Patient will be placed in observation. She has continued pain and nausea although it is slightly improved. But this patient has been trying to deal with this at home with oral morphine for 3 days and cannot tolerate the pain. I think with her overall level of health she will not do well as an outpatient and I do not think we will be able to manage her pain and nausea that way. Lab Data Attestation: I reviewed the patient's lab results. Labs: Laboratory Results - last 24 hr 03/01/22 03/01/22 03/01/22 02:50 03:40 03:40 WBC 15.8 H RBC 4.26 Hgb 11.5 L Hct 38.7 MCV 90.8 MCH 27.0 MCHC 29.7 L RDW Std Deviation 52.1 H RDW Coeff of Curtis 15.7 H Plt Count 493 H MPV 9.3 Immature Gran % (Auto) 0.400 Neut % (Auto) 76.8 H Lymph % (Auto) 13.5 L Meagher % (Auto) 7.5 Eos % (Auto) 1.3 Baso % (Auto) 0.5 Absolute Neuts (auto) 12.2 H Absolute Lymphs (auto) 2.13 Nucleated RBC % 0 Sodium 142 Potassium 3.3 L Chloride 104 Carbon Dioxide 32.0 Anion Gap 6 BUN 16 Creatinine 0.93 Estim Creat Clear Calc 54.20 Est GFR (MDRD) Af Amer 77 Est GFR (MDRD) Non-Af 64 BUN/Creatinine Ratio 17.2 Glucose 112 H Calcium 9.0 Urine Color Yellow Urine Clarity Sl. Cloudy Urine pH 7.0 Ur Specific [place] 1.010 Urine Protein 30 H Urine Glucose (UA) Normal Urine Ketones 5 H Urine Occult Blood 250 H Urine Nitrite Negative Urine Bilirubin Negative Urine Urobilinogen Normal Ur Leukocyte Esterase 100 H Urine RBC 50-100 SEEN Urine WBC 0-5 SEEN Ur Squamous Epith Cells 0-5 SEEN Urine Bacteria 0 SEEN Urine Mucus 0 SEEN Radiography Diagnostic Testing: Clinical Impression(s) from Imaging Studies Abdomen/Pelvis CT 03/01/22 02:54 IMPRESSION: 1. Moderately severe left-sided hydronephrosis and hydroureter secondary to distal ureteral calculus. 2. Nonobstructing right-sided renal calculus. 3. Cholelithiasis. Electronically Signed: Toña Hector MD at 4:55 EDT Reading Location ID and State: [facility] / [place] , Service support , CT is reviewed shows left-sided hydronephrosis with a large distal ureteral stone. She has a known biliary stone. Discharge Plan Triage Chief Complaint: Abd Pain ED Provider: Juan Pablo Hawthorne Dx/Rx/DC Orders Clinical Impression: Calculus of left kidney, Hydronephrosis, left, Intractable nausea and vomiting, Intractable pain Prescriptions: No Action pantoprazole 40 mg tablet,delayed release (DR/EC) 40 mg PO DAILY PRN (Reason: Acid Reflux) prednisone 20 mg tablet 10 mg PO DAILY@0800 Rx Instructions: Patient takes at home. levothyroxine 50 mcg tablet 50 mcg PO DAILY calcitriol 0.25 mcg capsule 0.25 mcg PO DAILY polysaccharide iron complex [Ferrex 150] 150 mg iron capsule 150 mg PO DAILY PRN (Reason: SUPPLEMENT) erythromycin 1 APPLIC ointment 1 applic OPHTHALMIC QHS Label Comments: BOTH EYES AT BEDTIME diphenoxylate-atropine 2.5-0.025 mg tablet 6 tablet PO 0400 morphine 15 MG tablet 15 mg PO TID loratadine [Claritin] 10 mg tablet 10 mg PO DAILY PRN (Reason: ALLERGIES) amiodarone 200 mg tablet 100 mg PO DAILY Qty: 45 3RF digoxin 125 mcg (0.125 mg) tablet 125 mcg PO DAILY Qty: 90 3RF Xarelto 20 mg tablet 20 mg PO DAILY Qty: 90 3RF Primary Care Provider: Julian Brand Chi Referrals: Julian Bradn Chi, MD [Primary Care Provider] - Disposition Disposition: Acute Care Hospital [facility]
[2022-03-01 03:02] LABS: Red Blood Cells-Urine 50-100 SEEN /hpf (0-5); Squamous Epithelial Cells - UA 0-5 SEEN /hpf (5-10); White Blood Cells 0-5 SEEN /hpf (0-5)
[2022-03-01] MEDS: Ondansetron 4 MG/2 ML Vial IV (03:35)
[2022-03-01] MEDS: Morphine 4 MG/ML Syringe IV ×2 (03:35→05:08)
[2022-03-01 03:50] LABS: Absolute Lymphocyte Count 2.13 X10^3/uL (0.83-4.51); Absolute Neutrophil Count 12.2 X10^3/uL (2.0-7.7); Basophil# 0.08 X10^3/uL; Basophil% 0.5 % (0-1); Eosinophils% 1.3 % (0-5); Hematocrit 38.7 % (37-47); Hemoglobin 11.5 g/dL (12.0-15.0); Lymphocyte # 2.13 X10^3/ul (0.83-4.51); Lymphocyte % 13.5 % (19-41); Mean Corp Hgb Conc 29.7 g/dL (32-36); Mean Corpuscular Volume 90.8 fL (81-99); Mean Platelet Vol. 9.3 fl (6.2-12.0); Monocyte# 1.18 X10^3/uL; Monocyte% 7.5 % (0-10); NRBC Flagged by Analyzer 0 % (0-5); Neutrophil # 12.16 X10^3/uL (2.7-7.7); Neutrophil % 76.8 % (47-70); Platelet Count 493 K/mm3 (150-450); RBC Distribution Width CV 15.7 % (11.6-14.6); RBC Distribution Width SD 52.1 fl (35.1-43.9); Red Blood Count 4.26 M/mm3 (4.2-5.4); White Blood Count 15.8 K/mm3 (4.4-11.0)
[2022-03-01 04:03] LABS: Anion Gap 6 (5-15); BUN 16 mg/dL (7-18); BUN/Creat Ratio 17.2 RATIO (10-20); Chloride 104 mmol/L (98-107); Creatinine, Serum 0.93 mg/dL (0.55-1.02); EST Glomerular Filtration Rate 64 mL/min (>60); Est Glom Filt Rate - Afr Amer 77 mL/min (>60); Glucose 112 mg/dL (74-106); Potassium 3.3 mmol/L (3.5-5.1); Sodium Level 142 mmol/L (136-145)
[2022-03-01] MEDS: proMETHazine 25 MG/ML Syringe 12.5 MG IM (05:07)
[2022-03-01] MEDS: Lactated Ringers 1,000 ML 125 ML IV ×2 (10:12→17:50)
[2022-03-01] MEDS: oxyCODONE 5 MG Tablet 10 MG PO (10:12)
[2022-03-01] MEDS: Cefazolin 1 GM/50 ML BAG IV ×3 (11:01→21:26)
--- NOTE | 2022-03-01 11:32 | HP.PCM_ITS ---
HPI - General General Date of Admission: 03/01/22 Date of Service: 03/01/22 Chief Complaint: Left flank pain HPI Narrative RAFIQ ALCANTAR, is a 66 F who presented to the emergency room with uncontrolled left flank and left lower abdominal pain associated with nausea, urgency and frequency. She denies dysuria. There is no hematuria. After being evaluated in the emergency department she was diagnosed with a distal left ureteral calculus approximately 9 mm in size with left-sided hydronephrosis. She now has appropriate pain control and is receiving medication for nausea. She has a longstanding history of Crohn's disease which is likely at least a part of the etiology of the stone. This is her first stone. [facility] Medical History (Updated 03/01/22 @ 11:[address] Erin Peña MD) A-fib Anemia Arthritis Asthma Back problem Bone fracture Chronic bronchitis Chronic pain COPD (chronic obstructive pulmonary disease) CPAP (continuous positive airway pressure) dependence Crohns disease Essential hypertension Fibromyalgia Former smoker Gallstones Gastrointestinal distress GERD (gastroesophageal reflux disease) History of blood transfusion History of echocardiogram HTN (hypertension) Hypertension Immunodeficiency disorder, selective immunoglobulin Left ureteral calculus New onset a-fib OA (osteoarthritis) SARAHY (obstructive sleep apnea) Osteopenia Osteoporosis Pancreatic divisum Paroxysmal atrial fibrillation PNE Pulmonary HTN Seasonal allergies Skin cancer Skin lesion Sleep apnea Vitamin deficiency Home Medications erythromycin 5 mg/gram (0.5 %) eye ointment 1 applic ophthalmic (eye) QHS ROSECA 06/20/14 [History Last Taken 02/28/22] morphine 15 mg immediate release tablet 15 mg PO TID PAIN 10/05/18 [History Last Taken 02/28/22] pantoprazole 40 mg tablet,delayed release 40 mg PO DAILY PRN Acid Reflux 05/29/20 [History Last Taken Unknown] prednisone 20 mg tablet 10 mg PO DAILY@0800 steroid 05/29/20 [History Last Taken 02/28/22] diphenoxylate-atropine 2.5 mg-0.025 mg tablet 6 tablet PO 0400 Diarrhea/Loose Stools 09/06/20 [History Last Taken 02/28/22] calcitriol 0.25 mcg capsule 0.25 mcg PO DAILY 05/29/21 [History Last Taken 02/28/22] polysaccharide iron complex 150 mg iron capsule (Ferrex) 150 mg PO DAILY PRN SUPPLEMENT 05/29/21 [History Last Taken Unknown] levothyroxine 50 mcg tablet 50 mcg PO DAILY 12/09/21 [History Last Taken 02/28/22] amiodarone 200 mg tablet 100 mg PO DAILY heart #45 tabs 12/11/21 [Rx Last Taken 02/28/22] digoxin 125 mcg (0.125 mg) tablet 125 mcg PO DAILY heart #90 tabs 12/11/21 [Rx Last Taken 02/28/22] rivaroxaban 20 mg tablet (Xarelto) 20 mg PO DAILY #90 tabs 12/11/21 [Rx Last Taken 02/28/22] loratadine 10 mg tablet (Claritin) 10 mg PO DAILY PRN ALLERGIES 03/01/22 [Histor y Last Taken Unknown] Allergy/AdvReac Type Severity Reaction Status Date / Time codeine Allergy Severe ANGIOEDEMA/LEG Verified 02/11/22 12:17 SWELLING Penicillins Allergy Severe ANGIOEDEMA/LEG Verified 02/11/22 12:17 SWELLING Sulfa (Sulfonamide Allergy Severe ANGIOEDEMA/LEG Verified 02/11/22 12:17 Antibiotics) SWELLING sulfasalazine Allergy Severe ANGIOEDEMA/LEG Verified 02/11/22 12:17 [From Azulfidine] SWELLING Family History Father Anemia Heart disease Hypertension CVA (cerebral vascular accident) Mother Arthritis Cancer Osteoporosis Sister Arthritis Lung disease Surgical History History of kyphoplasty (~07/07/16) History of left knee replacement History of pneumonectomy History of resection of small bowel History of right heart catheterization (RHC) (~05/09/16) History of tonsillectomy History of total hysterectomy with bilateral salpingo-oophorectomy (BSO) Leg fracture, right Social History Smoking Status: Former smoker how long ago did patient quit smokin second hand exposure: No alcohol intake: current alcohol intake frequency: other substance use type: does not use caffeine: Yes Type: carbonated beverages, coffee and tea what type of physical activity do you participate in: none seatbelt use: always 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 Constitutional Constitutional: Reports systems reviewed and no addt'l complaints, except as documented; Denies chills or fever(s) Eyes Eyes: Reports systems reviewed and no addt'l complaints, except as documented ENT HEENT: Reports systems reviewed and no addt'l complaints, except as documented Cardiovascular Cardiovascular: Reports abdominal pain and nausea; Denies chest pain at rest, dyspnea or vomiting Respiratory/Chest Respiratory/Chest: Reports systems reviewed and no addt'l complaints, except as documented Gastrointestinal Gastrointestinal: Reports abdominal pain and nausea Genitourinary Genitourinary: Reports flank pain, urinary frequency and urinary urgency Musculoskeletal Musculoskeletal: Reports systems reviewed and no addt'l complaints, except as documented Integumentary Integumentary: Reports other Details: lymphedema Neurologic Neurologic: Reports systems reviewed and no addt'l complaints, except as documented Psychiatric Psychiatric: Reports systems reviewed and no addt'l complaints, except as documented Endocrine Endocrinology: Reports systems reviewed and no addt'l complaints, except as documented Hematologic/Lymphatic Hematologic/Lymphatic: Reports systems reviewed and no addt'l complaints, except as documented Allergic/Immunologic Allergic/Immunologic: Reports systems reviewed and no addt'l complaints, except as documented Vital Signs Vital Signs Vital Signs: 03/01/22 02:37 03/01/22 02:43 03/01/22 05:19 Temperature 98.1 F 98.1 F 97.4 F L Temperature Source Oral Oral Oral Pulse Rate 88 88 89 Respiratory Rate 18 18 14 Respiratory Effort Respiratory Depth Respiratory Pattern Blood Pressure 220/95 H 220/95 H 175/111 H Blood Pressure Mean 136 136 132 Blood Pressure Source Blood Pressure Position Blood Pressure Location Pulse Ox 95 95 95 Oxygen Delivery Method Room Air Room Air Room Air Oxygen Flow Rate (L/min) 03/01/22 05:30 03/01/22 05:30 03/01/22 06:47 Temperature 98.4 F Temperature Source Oral Pulse Rate 86 Respiratory Rate 16 Respiratory Effort Respiratory Depth Respiratory Pattern Blood Pressure 157/101 H Blood Pressure Mean 119 Blood Pressure Source Blood Pressure Position Blood Pressure Location Pulse Ox 79 100 100 Oxygen Delivery Method Room Air Nasal Cannula Nasal Cannula Oxygen Flow Rate (L/min) 3 2 03/01/22 07:13 03/01/22 07:53 03/01/22 07:35 Temperature 98.3 F Temperature Source Temporal Pulse Rate 84 89 Respiratory Rate 18 Respiratory Effort Normal Respiratory Depth Shallow Respiratory Pattern Normal Blood Pressure 167/105 H 192/85 H Blood Pressure Mean 125 120 Blood Pressure Source Monitor Blood Pressure Position Semi-Fowlers Blood Pressure Location Right Forearm Pulse Ox 100 99 Oxygen Delivery Method Nasal Cannula Nasal Cannula Nasal Cannula Oxygen Flow Rate (L/min) 2 2 2 03/01/22 08:12 Temperature 98.3 F Temperature Source Temporal Pulse Rate 89 Respiratory Rate 18 Respiratory Effort Respiratory Depth Respiratory Pattern Blood Pressure 192/85 H Blood Pressure Mean 120 Blood Pressure Source Blood Pressure Position Blood Pressure Location Pulse Ox 98 Oxygen Delivery Method Nasal Cannula Oxygen Flow Rate (L/min) 2 Weight Weight: 114.8 kg Body Mass Index (BMI) 40.8 Physical Exam Const alert, oriented x3 and no apparent distress General Appearance: cooperative, comfortable and well kempt Orientation / Consciousness: awake Nutritional Appearance: overweight HEENT normocephalic, hearing grossly normal bilaterally, external ears normal, external nose normal and moist oral mucous membranes Eyes General Eye: normal appearance of both eyes Neck supple General: normal visual inspection and trachea midline Lymph Lymphatic: lymphedema severe Chest inspection of chest normal Chest: symmetrical chest wall rise Resp normal respiratory effort, normal air movement, no retractions and no use of accessory muscles Effort and Inspection: able to speak in complete sentences and symmetric chest movement Cardio regular rate GI soft to palpation, non-tender and non-distended Bladder / Kidney Exam: CVA tenderness left Back/Spine General Back: CVA tenderness left Extremity General Extremity: other findings Other Details: bilateral lower extremity lymphedema Neuro oriented x3, CN's II-XII intact bilaterally and moves all extremities Psych mental status grossly normal, thought process normal and cooperative Results Medical Records Data Medical Nutrition Assessment Dietitian: Malnutrition Criteria Met Start: 03/01/22 10:09 Freq: Status: Active Protocol: Document 03/01/22 10:09 [facility] (Rec: 03/01/22 10:09 [facility] [id number]) Nutrition Malnutrition Evidence of Malnutrition Exists Yes Malnutrition (severe): Chronic Evidenced By Suboptimal Energy Intake ( Severe),Weight Loss (Severe) Clinical Problem Chronic Disease or Condition Related Malnutrition Etiology severe related to poor appetite and varying issues of constipation/diarrhea making it difficult to consume adequate nutrition to meet est nutritional needs Signs/Symptoms as evidenced by 25.7% wt loss x 20 mo and consuming <75% of estimated nutritional needs x > 1 yr. Status Active Problem Recommendation Dietitian Recommendations/Changes As medically able, rec diet as tolerated to liberal regular w/ 4 oz ensure plus high protein 4x/day w/ medpass May need to consider more aggressive nutrition support if NPO expected >3 days and/or pt with continued wt loss. Lab / Micro Data Result Diagrams: 03/01/22 03:40 03/01/22 03:40 Labs: Laboratory Results - last 24 hr 03/01/22 02:50: Urine Color Yellow, Urine Clarity Sl. Cloudy, Urine pH 7.0, Ur Specific Weir 1.010, Urine Protein 30 H, Urine Glucose (UA) Normal, Urine Ketones 5 H, Urine Occult Blood 250 H, Urine Nitrite Negative, Urine Bilirubin Negative, Urine Urobilinogen Normal, Ur Leukocyte Esterase 100 H, Urine RBC 50- 100 SEEN, Urine WBC 0-5 SEEN, Ur Squamous Epith Cells 0-5 SEEN, Urine Bacteria 0 SEEN, Urine Mucus 0 SEEN 03/01/22 03:40: WBC 15.8 H, RBC 4.26, Hgb 11.5 L, Hct 38.7, MCV 90.8, MCH 27.0, MCHC 29.7 L, RDW Std Deviation 52.1 H, RDW Coeff of Curtis 15.7 H, Plt Count 493 H, MPV 9.3, Immature Gran % (Auto) 0.400, Neut % (Auto) 76.8 H, Lymph % (Auto) 13.5 L, [place] % (Auto) 7.5, Eos % (Auto) 1.3, Baso % (Auto) 0.5, Absolute Neuts (auto) 12.2 H, Absolute Lymphs (auto) 2.13, Nucleated RBC % 0 03/01/22 03:40: Sodium 142, Potassium 3.3 L, Chloride 104, Carbon Dioxide 32.0, Anion Gap 6, BUN 16, Creatinine 0.93, Estim Creat Clear Calc 54.20, Est GFR (MDRD) Af Amer 77, Est GFR (MDRD) Non-Af 64, BUN/Creatinine Ratio 17.2, Glucose 112 H, Calcium 9.0 Radiology Impression Abdomen/Pelvis CT 03/01/22 02:54 IMPRESSION: 1. Moderately severe left-sided hydronephrosis and hydroureter secondary to distal ureteral calculus. 2. Nonobstructing right-sided renal calculus. 3. Cholelithiasis. Electronically Signed: Toña Hector MD at 4:55 EDT Reading Location ID and State: [facility] / [place] , Service support , Assessment & Plan Assessment/Plan (1) Hydronephrosis, left: (2) Intractable pain: (3) Left ureteral calculus: PLAN: Plan trial of passage today with pain and nausea control OR intervention with laser lithotripsy if she does not pass it
[2022-03-01] MEDS: Tamsulosin HCl 0.4 MG Capsule PO (12:06)
--- NOTE | 2022-03-01 12:38 | CASEMGMT ---
MOHSEN MCGARRY NOTE: Intro role of CM to patient and SOUZA form explained re: Observation status for treatment of lt flank pain, lt ureteral calculus. Explained hospitalization will be paid per her insurance policy for Outpatient billing and condition will continue to be evaluated for Inpt necessity. Also let pt know that [facility] sends paper in the billing packet with their phone number if questions arise. Discussed Pharmacy section of SOUZA form and self administered medication guideline. Pt verbalizes understanding and does not have further questions. Form signed, copy made and placed in chart, and original given to pt. Pt states she lives alone and is independent, stating, I'm able to manage. She ambulates w/a cane @ baseline. She reports has good friend support and they help her w/getting groceries, medications, supplies, etc, or pt states she orders on-line/delivery. She feels safe to return home when medically ready. She denies need for HHC. MOHSEN MCGARRY made her aware, if in the future she feels she would benefit from HHC, to contact her PCP. She voices understanding. She denies having any discharge planning needs or concerns. Plan: Home Imtiaz JAVIER RN, CM
[2022-03-01] MEDS: Amiodarone 200 MG Tablet 100 MG PO (13:59)
[2022-03-01] MEDS: Levothyroxine 50 MCG Tablet PO (13:59)
[2022-03-01] MEDS: Digoxin 125 MCG Tablet PO (13:59)
[2022-03-01] MEDS: Rivaroxaban 20 MG Tablet PO (14:00)
[2022-03-01] MEDS: Calcitriol 0.25 MCG Capsule PO (14:00)
[2022-03-01] MEDS: predniSONE 10 MG Tablet PO (14:03)
[2022-03-01] MEDS: morphine SR 15 MG Tablet PO ×2 (14:06→21:26)
[2022-03-01] MEDS: Erythromycin Base 1 OPTH.TUBE 1 APPLIC OPHTHALMIC (20:10)
[2022-03-02] VITALS (14 sets, daily range): BP systolic 112–203; BP diastolic 54–92; PULSE 84–105; RESP 16–18; TEMP 36.9–38.1; O2SAT 90–98; BMI 40.8
[2022-03-02] MEDS: Lactated Ringers 1,000 ML 125 ML IV ×3 (02:01→17:16)
[2022-03-02] MEDS: Morphine 2 MG/ML Syringe IV (02:03)
[2022-03-02] MEDS: 0.9% Saline Lock 10 ML Syringe IV (02:04)
[2022-03-02] MEDS: Levothyroxine 50 MCG Tablet PO (05:04)
[2022-03-02] MEDS: Diphenoxylate/Atrop 1 Tablet 6 TABLET PO (05:04)
[2022-03-02] MEDS: morphine SR 15 MG Tablet PO ×3 (05:04→21:50)
[2022-03-02] MEDS: Cefazolin 1 GM/50 ML BAG IV ×3 (05:04→21:49)
--- NOTE | 2022-03-02 05:55 | EKG12_ITS ---
Test Reason : ROUTINE Blood Pressure : / mmHG Vent. Rate : 088 BPM Atrial Rate : 088 BPM P-R Int : 140 ms QRS Dur : 090 ms QT Int : 344 ms P-R-T Axes : 053 039 041 degrees QTc Int : 416 ms Normal sinus rhythm Normal ECG When compared with ECG of 01-MAR-2021 19:15, No significant change was found Confirmed by NANCI STEARNS, RUBIN ([id number]), story editor ADRIANE ANTUNEZ ([id number]) on 03/04/2022 9:30:57 AM Referred By: NICOLE Confirmed By:RUBIN CHRISTINE MD
[2022-03-02 06:20] LABS: Absolute Lymphocyte Count 1.75 X10^3/uL (0.83-4.51); Absolute Neutrophil Count 9.4 X10^3/uL (2.0-7.7); Basophil# 0.07 X10^3/uL; Basophil% 0.6 % (0-1); Eosinophil# 0.18 X10^3/uL; Eosinophils% 1.4 % (0-5); Hematocrit 38.2 % (37-47); Hemoglobin 10.9 g/dL (12.0-15.0); Lymphocyte # 1.75 X10^3/ul (0.83-4.51); Lymphocyte % 14.1 % (19-41); Mean Corp Hgb Conc 28.5 g/dL (32-36); Mean Corpuscular Hgb 26.8 pg (27.0-32.0); Mean Corpuscular Volume 93.9 fL (81-99); Mean Platelet Vol. 9.5 fl (6.2-12.0); NRBC Flagged by Analyzer 0 % (0-5); Neutrophil # 9.36 X10^3/uL (2.7-7.7); Neutrophil % 75.3 % (47-70); Platelet Count 448 K/mm3 (150-450); RBC Distribution Width CV 15.8 % (11.6-14.6); RBC Distribution Width SD 54.1 fl (35.1-43.9); Red Blood Count 4.07 M/mm3 (4.2-5.4); White Blood Count 12.4 K/mm3 (4.4-11.0)
[2022-03-02 06:28] LABS: International Normalized Ratio 1.6; Prothrombin Time (Protime)PT. 18.4 SECONDS (11.7-14.9)
[2022-03-02 06:29] LABS: Partial Thromboplast Time 31.5 Seconds (24.1-36.2)
[2022-03-02 08:00] LABS: Anion Gap 4 (5-15); BUN 15 mg/dL (7-18); BUN/Creat Ratio 11.1 RATIO (10-20); Calcium,Total 8.6 mg/dL (8.5-10.1); Chloride 101 mmol/L (98-107); Creatinine, Serum 1.35 mg/dL (0.55-1.02); EST Glomerular Filtration Rate 41 mL/min (>60); Est Glom Filt Rate - Afr Amer 50 mL/min (>60); Estimated Creatinine Clearance 37.34 ml/min; Glucose 92 mg/dL (74-106); Sodium Level 138 mmol/L (136-145)
--- NOTE | 2022-03-02 08:10 | CALC_PTH ---
PATIENT: RAFIQ ALCANTRA LOC: MS3 U#:[id number] AGE/SX: 66/F ROOM: NE321 RE03/02/[address]: Dr. Erin Peña MD : [id number] BED: 1 DIS: 03/03/2022 SPEC #: [id number] RECD: 03/02/22 09:23 STATUS: LANA JACOB #: [id number] EWA: 03/02/22 08:[address]: Erin Peña DEPT: SURGICAL PATHOLOGY RECD BY: Holli Ribeiro ENTERED: 03/03/22 08:19 SP TYPE: Calculi OTHR DR: Dr. Julian Brand MD Tissues: CALCULI Procedures: Surgery Specimen Level I HEADER OPERATION: Cysto, ureteroscopy, retro, laser, stent PRE-OP DIAGNOSIS: Left hydronephrosis, intractable pain, left ureteral calculus TISSUE SUBMITTED: Ureteral stone GROSS DIAGNOSIS Fragments of stone, clinically ureteral stone. SJ:laura 03/04/2022 COMMENT The calculus is submitted in its entirety for chemical stone analysis. The results from this study will be reported separately. GROSS DESCRIPTION Received without fixative labeled with the patient's name and designated ureteral stone. The specimen consists of multiple fragments of brownish stone measuring in aggregate 0.5 x 0.5 x 0.2 cm. The entire specimen is submitted for stone analysis. / DONNIE:laura 03/03/2022 CPT: 80719
--- NOTE | 2022-03-02 08:16 | OP.PCM_ITS ---
Report of Operation Date of Procedure: 03/02/22 Pre-Operative Diagnosis: Left ureteral calculus, hydronephrosis Post-Operative Diagnosis: Same Surgery/Procedure Performed:: Cystoscopy, left ureteroscopy, holmium laser lithotripsy, stone basket extraction, left ureteral stent insertion Surgeon: Erin Peña Type of Anesthesia: MAC Specimen's removed: Left ureteral stone fragments Description of Procedure: The patient is a 66-year-old female admitted yesterday with uncontrolled pain and nausea secondary to a large distal ureteral calculus on the left side. She failed a trial of void and now presents for surgical intervention. Informed consent was obtained. The patient was taken to the operating room and placed on the operating room table. Anesthesia monitored the head, neck, airway, IV access and vital signs throughout the case. Once anesthesia was appropriately ministered, the patient was placed into dorsolithotomy position was prepped and draped in usual sterile fashion. The cystoscope was inserted through the urethra under direct visualization into the urinary bladder. There were no masses identified. The left ureteral orifice was identified and intubated gently with a 0.035 Glidewire which met immediate resistance secondary to the stone. Eventually the wire was able to go around the stone into the renal pelvis. A semirigid ureteroscope was then used to gain access to the distal ureter where the stone was immediately identified. Using a 270 ?m laser fiber the stone was lasered into small pieces which were then removed with a stone basket. Ureteroscopy then proceeded all the way to the proximal ureter were no further stones or abnormalities were identified. Using the safety wire, a 6 Grenadian 26 cm JJ stent was placed over the wire with good positioning in the renal pelvis as well as the urinary bladder. The patient's bladder was then emptied and the case was terminated. She was awakened and taken to the recovery room in good condition. There were no complications during this procedure. Grafts/Implants Used: 6 x 26 JJ stent Complications None Admit VTE Documentation VTE Present on Admission: Yes VTE Mechan Device Prophylaxis: None VTE Pharm Prophylaxis ordered?: Yes
[2022-03-02] MEDS: FLU VACC QS2022-23(6MOS UP)/PF 60 MCG/0.5 ML SYRINGE IM (10:02)
[2022-03-02] MEDS: Amiodarone 200 MG Tablet 100 MG PO (10:03)
[2022-03-02] MEDS: predniSONE 10 MG Tablet PO (10:03)
[2022-03-02] MEDS: Rivaroxaban 20 MG Tablet PO (10:03)
[2022-03-02] MEDS: Calcitriol 0.25 MCG Capsule PO (10:04)
[2022-03-02] MEDS: Digoxin 125 MCG Tablet PO (10:05)
[2022-03-02] MEDS: oxyCODONE 5 MG Tablet 10 MG PO (10:15)
[2022-03-02] MEDS: Erythromycin Base 1 OPTH.TUBE 1 APPLIC OPHTHALMIC (21:49)
[2022-03-03 00:30] VITALS: BP 153/81; PULSE 70; RESP 18; TEMP 36.6; O2SAT 100
[2022-03-03] MEDS: Lactated Ringers 1,000 ML 125 ML IV (01:46)
[2022-03-03 04:35] VITALS: BP 150/88; PULSE 68; RESP 18; TEMP 36.9; O2SAT 100
[2022-03-03] MEDS: Diphenoxylate/Atrop 1 Tablet 6 TABLET PO (04:42)
[2022-03-03] MEDS: Levothyroxine 50 MCG Tablet PO (05:33)
[2022-03-03] MEDS: Cefazolin 1 GM/50 ML BAG IV (05:34)
[2022-03-03] MEDS: morphine SR 15 MG Tablet PO (05:34)
--- NOTE | 2022-03-03 08:33 | DCINST_ITS ---
Discharge Instructions Diet Discharge Diet: No restrictions Activity Discharge Activity: Return to Normal Activity Dressing / Incision Call your doctor if you observe: Fever of 101 or Higher, Inability to urinate and Inability to have a bowel movement Follow Up Care Please Follow Up With: rEin Peña MD When: call office for appt to have stent removed Test Results: Test results from this visit will be discussed in further detail at your follow- up appointment, if applicable. Discharge Plan Admission Admit Date/Time: 03/02/22 18:37 Attending Provider: Erin Peña Primary Care Provider: Julian Brand Chi Discharge Orders/Prescriptions Prescriptions: New phenazopyridine [Pyridium] 200 mg tablet 200 mg PO TID PRN PRN (Reason: Bladder Spasms) 7 Days Qty: 30 0RF cephalexin [cephalexin] 500 mg capsule 500 mg PO Q12 3 Days Qty: 6 0RF Continued pantoprazole 40 mg tablet,delayed release (DR/EC) 40 mg PO DAILY PRN (Reason: Acid Reflux) prednisone 20 mg tablet 10 mg PO DAILY@0800 Rx Instructions: Patient takes at home. levothyroxine 50 mcg tablet 50 mcg PO DAILY calcitriol 0.25 mcg capsule 0.25 mcg PO DAILY polysaccharide iron complex [Ferrex 150] 150 mg iron capsule 150 mg PO DAILY PRN (Reason: SUPPLEMENT) erythromycin 1 APPLIC ointment 1 applic OPHTHALMIC QHS Label Comments: BOTH EYES AT BEDTIME diphenoxylate-atropine 2.5-0.025 mg tablet 6 tablet PO 0400 morphine 15 MG tablet 15 mg PO TID loratadine [Claritin] 10 mg tablet 10 mg PO DAILY PRN (Reason: ALLERGIES) amiodarone 200 mg tablet 100 mg PO DAILY Qty: 45 3RF digoxin 125 mcg (0.125 mg) tablet 125 mcg PO DAILY Qty: 90 3RF Xarelto 20 mg tablet 20 mg PO DAILY Qty: 90 3RF Referrals / Follow Up: Julian Brand Chi, MD [Primary Care Provider] - Disposition Disposition (needs filled in before D/C Order can be placed): Home, Self Care
[2022-03-03 09:12] VITALS: BP 126/68; PULSE 98; RESP 18; TEMP 36.9; O2SAT 93
[2022-03-03 09:14] VITALS: PULSE 98
[2022-03-03] MEDS: Digoxin 125 MCG Tablet PO (09:14)
[2022-03-03] MEDS: Calcitriol 0.25 MCG Capsule PO (09:14)
[2022-03-03] MEDS: Amiodarone 200 MG Tablet 100 MG PO (09:14)
[2022-03-03] MEDS: Rivaroxaban 20 MG Tablet PO (09:14)
[2022-03-03 09:19] VITALS: BP 126/68; PULSE 98; RESP 18; TEMP 36.9; O2SAT 93
--- NOTE | 2022-03-03 09:35 | CASEMGMT ---
MOHSEN MCGARRY Assessment: Face to Face with pt for initial transition planning/care coordination assessment. MOHSEN MCGARRY introduced self and role at [facility], pt voices understanding and consents to assessment. Pt is A/O x4 and answers all questions appropriately at this time. Pt sitting up in bed in no distress. Care providers, pharmacy, and demographics verified/updated. Admitting Dx: left ureteral calculus PCP:Sunday Specialists:Jocelyn, chavo; Mary, [employer] [facility]; [facility] Preferred Pharmacy: [facility] Retail Insurance: MCR, MMO Prescription Benefit: yes LW/HPOA: Pt states she has a LW/DPOA and her DPOA is her friend Gabbie Thompson. She is aware this is not on file at [facility] and she may bring in to be scanned into her chart. LNOK: Lexi Herrera, brother; Gabbie Thompson, friend Living Arrangements: Pt lives alone in a single story house with 1 step to enter with a grab bar. Pt reports she is I in ADL' s and denies concerns at home. Transportation: Pt drives self and denies concerns with transportation. DME/HHC/SNF: Pt has a cane. She also has a FWW but does not use. Pt has a pox and oxygen through [employer]. She reports that she wears 2-3 at night as needed. Pt reports she has portable tanks as well. Pt has had [facility] HHC in the past and has been to [facility] TCU. Pt states no concerns with going home at time of dc. Pt states no further concerns/needs. CM to follow. Advised pt to ask CM if any further question/concerns/needs arise, voices understanding. Pt Goal: Home Plan: Home
--- NOTE | 2022-03-03 10:47 | PHA.DC.MC ---
Pharmacy Service has performed discharge medication reconciliation and counseling for this patient. 1. CEPHALEXIN 500MG PO Q12 X 3 DAYS 2. PHENAZOPYRIDINE 200MG PO TID PRN BLADDER SPASMS The patient's discharge medication list was reviewed for discrepancies and discrepancies were resolved. Home Medications erythromycin 5 mg/gram (0.5 %) eye ointment 1 applic ophthalmic (eye) QHS ROSECA 06/20/14 morphine 15 mg immediate release tablet 15 mg PO TID PAIN 10/05/18 pantoprazole 40 mg tablet,delayed release 40 mg PO DAILY PRN Acid Reflux 05/29/20 prednisone 20 mg tablet 10 mg PO DAILY@0800 steroid 05/29/20 diphenoxylate-atropine 2.5 mg-0.025 mg tablet 6 tablet PO 0400 Diarrhea/Loose Stools 09/06/20 calcitriol 0.25 mcg capsule 0.25 mcg PO DAILY 05/29/21 polysaccharide iron complex 150 mg iron capsule (Ferrex) 150 mg PO DAILY PRN SUPPLEMENT 05/29/21 levothyroxine 50 mcg tablet 50 mcg PO DAILY 12/09/21 amiodarone 200 mg tablet 100 mg PO DAILY heart #45 tabs 12/11/21 digoxin 125 mcg (0.125 mg) tablet 125 mcg PO DAILY heart #90 tabs 12/11/21 rivaroxaban 20 mg tablet (Xarelto) 20 mg PO DAILY #90 tabs 12/11/21 loratadine 10 mg tablet (Claritin) 10 mg PO DAILY PRN ALLERGIES 03/01/22 cephalexin 500 mg capsule 500 mg PO Q12 post-operative 3 days #6 CAPSULES 03/03/22 phenazopyridine 200 mg tablet (Pyridium) 200 mg PO TID PRN PRN Bladder Spasms 7 days #30 tabs 03/03/22 The patient was counseled on the following discharge medications and changes in medications for homegoing were reviewed. The Reason for Use, instructions for use, and potential side effects were reviewed for all new medications. The patient's questions regarding all of their medications were answered. The patient was able to verbally demonstrate an understanding of their discharge medications.
--- NOTE | 2022-03-03 11:29 | CASEMGMT ---
Social Work SW in to validate AD with pt. Pt confirmed has HCPOA and LW. Pt named friend, Gabbie Garcia, as agent. SW informed these documents are not on file at [facility] and informed pt that documents can be brought in and taken to medical records office in future. Pt voiced understanding. DEDE Goldstein
[2022-03-03] MEDS: predniSONE 10 MG Tablet PO (11:31)
[2022-03-10 18:26] LABS: Source URETER
== END 2022-03-03 11:42 | disposition home or self-care (01) | DRG 660 ==
LOC: ED 06:16 → MS3 06:56
PROVIDERS: Anesthesiology; Admitting Provider Urology; Emergency Provider Emergency Medicine; PCP Family Medicine Geriatric Medicine; Visit Provider Urology
PROC: 0TJ98ZZ Inspection of Ureter, Via Natural or Artificial Opening Endoscopic (ICD-10-PCS; CPT 52352; principal; 2022-03-02 08:00)
DX: N13.2 Hydronephrosis with renal and ureteral calculous obstruction (principal); K50.90 Crohn's disease, unspecified, without complications; I10 Essential (primary) hypertension; J44.9 Chronic obstructive pulmonary disease, unspecified; I48.0 Paroxysmal atrial fibrillation; M79.7 Fibromyalgia; K21.9 Gastro-esophageal reflux disease without esophagitis; Z79.52 Long term (current) use of systemic steroids; Z87.891 Personal history of nicotine dependence; Z79.01 Long term (current) use of anticoagulants; Z79.899 Other long term (current) drug therapy; Z23 Encounter for immunization
CPT/HCPCS: 36415; 36591; 74176; 76000; 80048; 81001; 82360; 85025; 85610; 85730; 87086; 87088; 88300; 93005; 97161; 97165; 97802; 99251; 99285; G0008; J7120; 90686; A4216; G0463; J2405

== ENCOUNTER → 2022-03-18 | Outpatient (CLI) | payer MEDICARE, OTHER, SELFPAY ==
[2022-03-18 13:16] LABS: Absolute Lymphocyte Count 2.19 X10^3/uL (0.83-4.51); Absolute Neutrophil Count 6.9 X10^3/uL (2.0-7.7); Basophil# 0.08 X10^3/uL; Basophil% 0.8 % (0-1); Eosinophil# 0.16 X10^3/uL; Eosinophils% 1.6 % (0-5); Hematocrit 43.4 % (37-47); Hemoglobin 12.3 g/dL (12.0-15.0); Lymphocyte # 2.19 X10^3/ul (0.83-4.51); Lymphocyte % 21.7 % (19-41); Mean Corp Hgb Conc 28.3 g/dL (32-36); Mean Corpuscular Hgb 26.8 pg (27.0-32.0); Mean Corpuscular Volume 94.6 fL (81-99); Monocyte# 0.68 X10^3/uL; Monocyte% 6.8 % (0-10); NRBC Flagged by Analyzer 0 % (0-5); Neutrophil # 6.92 X10^3/uL (2.7-7.7); Neutrophil % 68.7 % (47-70); Platelet Count 606 K/mm3 (150-450); RBC Distribution Width CV 15.5 % (11.6-14.6); RBC Distribution Width SD 53.7 fl (35.1-43.9); Red Blood Count 4.59 M/mm3 (4.2-5.4); White Blood Count 10.1 K/mm3 (4.4-11.0)
[2022-03-18 13:43] LABS: Vitamin D,25 Hydroxy 35.5 ng/mL
[2022-03-18 13:51] LABS: ALB/GLOB Ratio 0.9 RATIO (0.9-2.4); AST(SGOT) 11 U/L (15-37); Alanine Aminotransfer ALT/SGPT 13 U/L (13-56); Albumin, Serum 3.2 g/dL (3.2-5.0); Alkaline Phosphatase 75 U/L (45-117); Anion Gap 5 (5-15); BUN 14 mg/dL (7-18); BUN/Creat Ratio 12.3 RATIO (10-20); Calcium,Total 9.4 mg/dL (8.5-10.1); Chloride 102 mmol/L (98-107); Creatinine, Serum 1.14 mg/dL (0.55-1.02); EST Glomerular Filtration Rate 50 mL/min (>60); Est Glom Filt Rate - Afr Amer 61 mL/min (>60); Globulin 3.7 g/dL (2.2-4.2); Glucose 96 mg/dL (74-106); Potassium 4.1 mmol/L (3.5-5.1); Protein, Total 6.9 g/dL (6.4-8.2); Sodium Level 138 mmol/L (136-145); Thyroid Stim Hormone (TSH) 3.01 uIU/mL (0.358-3.74)
== END | disposition home or self-care (01) ==
LOC: POLAB3 09:33
PROVIDERS: PCP Family Medicine Geriatric Medicine; Visit Provider Family Medicine Geriatric Medicine
DX: E55.9 Vitamin D deficiency, unspecified (principal); I10 Essential (primary) hypertension
CPT/HCPCS: 36415; 80053; 82306; 84443; 85025

== ENCOUNTER → 2022-04-10 | Outpatient (CLI) | payer MEDICARE, OTHER, SELFPAY ==
--- NOTE | 2022-04-10 11:15 | BD_ITS ---
STUDY: DUAL ENERGY X-RAY ABSORPTIOMETRY / DXA REASON FOR EXAM: Female, 66 years old. M81.0 TECHNIQUE: Bone Mineral Density (BMD) measurements of both forearms were obtained. COMPARISON: Comparison is made with prior study dated 08/28/2016. FINDINGS: Right Forearm: g/cm2 (0.437) / T-score (-2.6) / Z-score (-0.8) Left Forearm: g/cm2 (0.420) / T-score (-2.9) / Z-score (-1.1) BD/Dexa Bone Density/Append Skel IMPRESSION: The patient is considered osteoporotic as outlined below according to World [employer] Angel Organization (WHO) criteria with a high fracture risk. Reference Information: The T-score is the number of standard deviations above or below the standard which is normal for young adults at their peak bone mineral density. The World Health Organization (WHO) interprets the T-scores as follows: Above -1 Normal bone density Between -1 and -2.5 Osteopenia Equal to / or below -2.5 Osteoporosis As a practical clinical guideline, osteopenia may be graded as follows: Mild -1 through -1.5 Moderate -1.6 through -2.0 Severe -2.1 through -2.4 The Z-score is the number of standard deviations above or below age-matched controls. A Z-score of less than -1.5 would be considered abnormal. References: 1. NIH Osteoporosis and Related Bone Diseases www osteo.org 2. International Society for Clinical Densitometry www iscd.org 3. National Osteoporosis Foundation www nof.org Electronically Signed: Raul Padilla MD at 14:12 EST ,
== END | disposition home or self-care (01) ==
LOC: OPBD 11:09
PROVIDERS: PCP Family Medicine Geriatric Medicine; Referring Provider Family Medicine Geriatric Medicine; Visit Provider Family Medicine Geriatric Medicine
DX: M81.0 Age-related osteoporosis without current pathological fracture (principal)
CPT/HCPCS: 77081

== ENCOUNTER 2022-05-11 18:41 | Inpatient (IN) | payer MEDICARE, OTHER, SELFPAY ==
[2022-05-11] VITALS (12 sets, daily range): BP systolic 147–192; BP diastolic 81–110; PULSE 94–112; RESP 18–35; TEMP 37.3–37.4; O2SAT 87–100; BMI 38.0; BMI 37.7
--- NOTE | 2022-05-11 19:14 | EX.ED.DYSGE1 ---
HPI <TINA Love - Last Filed: 05/11/22 20:24> History of Present Illness Chief Complaint: Shortness of Breath Narrative Narrative: 66-year-old female with PMH of HTN, A. fib, PE on Xarelto, COPD, hypothyroidism, lymphedema presents with 4 days of malaise, dry cough and congestion, and body aches. She has mainly been lying in bed. She took some old antibiotic she had on hand for several doses but this caused diarrhea so she stopped. She denies fever or chills. She is coughing significantly which sometimes makes her feel short of breath. She states her associate media director prescribed up to 5 L of oxygen as needed but she did not even think to use this. She does not have inhalers but has not needed them with respiratory illnesses in the past. She quit smoking many years ago. PFSH <ITNA Love - Last Filed: 05/11/22 20:24> [facility] Medical History A-fib Anemia Arthritis Asthma Back problem Bone fracture Chronic bronchitis Chronic pain COPD (chronic obstructive pulmonary disease) CPAP (continuous positive airway pressure) dependence Crohns disease Essential hypertension Fibromyalgia Former smoker Gallstones Gastrointestinal distress GERD (gastroesophageal reflux disease) History of blood transfusion History of echocardiogram HTN (hypertension) Hypertension Immunodeficiency disorder, selective immunoglobulin Left ureteral calculus New onset a-fib OA (osteoarthritis) SARAHY (obstructive sleep apnea) Osteopenia Osteoporosis Pancreatic divisum Paroxysmal atrial fibrillation PNE Pulmonary HTN Screening for colon cancer Seasonal allergies Skin cancer Skin lesion Sleep apnea Unintentional weight loss Vitamin deficiency Home Medications erythromycin 5 mg/gram (0.5 %) eye ointment 1 applic ophthalmic (eye) QHS ROSECA 06/20/14 [History Last Taken 02/28/22] morphine 15 mg immediate release tablet 15 mg PO TID PAIN 10/05/18 [History Last Taken 02/28/22] pantoprazole 40 mg tablet,delayed release 40 mg PO DAILY PRN Acid Reflux 05/29/20 [History Last Taken Unknown] prednisone 20 mg tablet 10 mg PO DAILY@0800 steroid 05/29/20 [History Last Taken 02/28/22] diphenoxylate-atropine 2.5 mg-0.025 mg tablet 6 tablet PO 0400 Diarrhea/Loose Stools 09/06/20 [History Last Taken 02/28/22] calcitriol 0.25 mcg capsule 0.25 mcg PO DAILY 05/29/21 [History Last Taken 02/28/22] polysaccharide iron complex 150 mg iron capsule (Ferrex) 150 mg PO DAILY PRN SUPPLEMENT 05/29/21 [History Last Taken Unknown] levothyroxine 50 mcg tablet 50 mcg PO DAILY 12/09/21 [History Last Taken 02/28/22] amiodarone 200 mg tablet 100 mg PO DAILY heart #45 tabs 12/11/21 [Rx Last Taken 02/28/22] digoxin 125 mcg (0.125 mg) tablet 125 mcg PO DAILY heart #90 tabs 12/11/21 [Rx Last Taken 02/28/22] rivaroxaban 20 mg tablet (Xarelto) 20 mg PO DAILY #90 tabs 12/11/21 [Rx Last Taken 02/28/22] loratadine 10 mg tablet (Claritin) 10 mg PO DAILY PRN ALLERGIES 03/01/22 [History Last Taken Unknown] phenazopyridine 200 mg tablet (Pyridium) 200 mg PO TID PRN PRN Bladder Spasms 7 days #30 tabs 03/03/22 [Rx Last Taken Unknown] sildenafil 25 mg tablet (Viagra) 25 mg PO DAILY PRN 05/07/22 [History Last Taken Unknown] Allergy/AdvReac Type Severity Reaction Status Date / Time codeine Allergy Severe ANGIOEDEMA/LEG Verified 05/11/22 18:42 SWELLING Penicillins Allergy Severe ANGIOEDEMA/LEG Verified 05/11/22 18:42 SWELLING Sulfa (Sulfonamide Allergy Severe ANGIOEDEMA/LEG Verified 05/11/22 18:42 Antibiotics) SWELLING sulfasalazine Allergy Severe ANGIOEDEMA/LEG Verified 05/11/22 18:42 [From Azulfidine] SWELLING Family History Father Anemia Heart disease Hypertension CVA (cerebral vascular accident) Mother Arthritis Cancer Osteoporosis Sister Arthritis Lung disease Surgical History History of kyphoplasty (~07/07/16) History of left knee replacement History of pneumonectomy History of resection of small bowel History of right heart catheterization (RHC) (~05/09/16) History of tonsillectomy History of total hysterectomy with bilateral salpingo-oophorectomy (BSO) Leg fracture, right Social History Smoking Status: Former smoker how long ago did patient quit smokin second hand exposure: No alcohol intake: current alcohol intake frequency: other substance use type: does not use caffeine: Yes Type: carbonated beverages, coffee and tea what type of physical activity do you participate in: none seatbelt use: always 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 Eyes: Negative for visual change. ENT: Negative for sore throat, ear pain, rhinorrhea. CVS: Negative for palpitations, chest pain, syncope. Respiratory: Positive for shortness of breath, cough. Negative for orthopnea. GI: Negative for abdominal pain, nausea, vomiting, diarrhea, constipation, melena, hematochezia. : Negative for dysuria, hematuria or frequency. Neuro: Negative for headache, motor/sensory dysfunction. Skin: Negative for rash, abscess, or wound. Musc: Negative for joint pain,trauma. Heme: Negative for easy bruising, bleeding, lymphadenopathy. EXAM <TINA Love - Last Filed: 05/11/22 20:24> Physical Exam Narrative Exam Narrative: CONST: Patient sitting in no acute distress. EYES: Normal inspection. ENT: Normal inspection, dry mucous membranes. NECK: Normal inspection. RESP: No respiratory distress, expiratory wheezing throughout CVS: Rapid rate with regular rhythm, no murmur, no gallop. ABD: Soft and nontender, no guarding or rebound, nondistended. SKIN: Color normal, no rash, warm, dry, intact. EXTREMITIES: Chronic bilateral lymphedema. NEURO: Oriented x4. PSYCH: Normal affect. Const Vital Signs: 05/11/22 18:43 05/11/22 18:48 05/11/22 18:48 Temperature 99.3 F H 99.3 F H Temperature Source Oral Oral Pulse Rate 112 H 108 H Respiratory Rate 22 H 25 H Respiratory Effort Respiratory Pattern Blood Pressure 192/110 H 192/110 H Blood Pressure Mean 137 137 Pulse Ox 92 87 88 Oxygen Delivery Method Room Air Room Air Room Air Oxygen Flow Rate (L/min) 05/11/22 18:48 05/11/22 19:01 05/11/22 19:28 Temperature Temperature Source Pulse Rate 108 H Respiratory Rate 18 Respiratory Effort Short of Breath Respiratory Pattern Normal Blood Pressure Blood Pressure Mean Pulse Ox 100 Oxygen Delivery Method Room Air Nasal Cannula Oxygen Flow Rate (L/min) 3 <Dr. Precious Chavez MD - Last Filed: 05/12/22 00:20> Physical Exam Const Vital Signs: 05/11/22 18:43 05/11/22 18:48 05/11/22 18:48 Temperature 99.3 F H 99.3 F H Temperature Source Oral Oral Pulse Rate 112 H 108 H Respiratory Rate 22 H 25 H Respiratory Effort Respiratory Pattern Blood Pressure 192/110 H 192/110 H Blood Pressure Mean 137 137 Pulse Ox 92 87 88 Oxygen Delivery Method Room Air Room Air Room Air Oxygen Flow Rate (L/min) 05/11/22 18:48 05/11/22 19:01 05/11/22 19:28 Temperature Temperature Source Pulse Rate 108 H Respiratory Rate 18 Respiratory Effort Short of Breath Respiratory Pattern Normal Blood Pressure Blood Pressure Mean Pulse Ox 100 Oxygen Delivery Method Room Air Nasal Cannula Oxygen Flow Rate (L/min) 3 MDM <TINA Love - Last Filed: 05/11/22 20:24> [facility] MDM Narrative Medical decision making narrative: Patient has fatigue, congestion, cough and body aches. She appears ill but nontoxic. Vital signs show BP 192/110, HR in 110s, RR 22/min, and 87% on room air so she was placed on 2 L of oxygen. Exam is remarkable for dry mucous membranes and dry cough with expiratory wheezing. Labs show normal white count and hemoglobin, hyponatremia of 130, normal potassium and renal function. CXR shows no acute process. Testing is positive for influenza A. Patient was given IV fluids for dehydration and hyponatremia. She lives alone and is too weak to manage symptoms at home. She also is having increased wheezing and requiring 2 L and would benefit from continued aerosol treatments. Case will be discussed with the hospitalist for admission. Lab Data Attestation: I reviewed the patient's lab results. Labs: Laboratory Results - last 24 hr 05/11/22 05/11/22 18:54 18:54 WBC 9.8 RBC 5.20 Hgb 14.6 Hct 46.1 MCV 88.7 MCH 28.1 MCHC 31.7 L RDW Std Deviation 49.6 H RDW Coeff of Curtis 15.3 H Plt Count 368 MPV 9.7 Immature Gran % (Auto) 0.400 Neut % (Auto) 76.6 H Lymph % (Auto) 12.3 L [place] % (Auto) 10.1 H Eos % (Auto) 0.1 Baso % (Auto) 0.5 Absolute Neuts (auto) 7.5 Absolute Lymphs (auto) 1.21 Nucleated RBC % 0 Sodium 130 L Potassium 3.7 Chloride 91 L Carbon Dioxide 31.0 Anion Gap 8 BUN 19 H Creatinine 0.98 Estim Creat Clear Calc 49.44 Est GFR (MDRD) Af Amer 72 Est GFR (MDRD) Non-Af 60 BUN/Creatinine Ratio 19.3 Glucose 93 Calcium 9.6 Radiography Chest X-Ray - ED: 1 View, Read by ED Physician, Read by Radiologist, Normal, Heart, Lungs, Mediastinum, Bony Structures and No Acute Disease Diagnostic Testing: Clinical Impression(s) from Imaging Studies Chest X-Ray 05/11/22 19:20 IMPRESSION: No radiographic evidence of acute cardiopulmonary disease. Electronically Signed: Julian Whiting MD at 19:52 EST Reading Location ID and State: [facility] / [place] Tel , Service support , ED attending interpretation of 1-view chest x-ray shows normal heart size, no acute infiltrate, edema, or effusion. <Dr. Precious Chavez MD - Last Filed: 05/12/22 00:20> [facility] Narrative Medical decision making narrative: Patient has fatigue, congestion, cough and body aches. She appears ill but nontoxic. Vital signs show BP 192/110, HR in 110s, RR 22/min, and 87% on room air so she was placed on 2 L of oxygen. Exam is remarkable for dry mucous membranes and dry cough with expiratory wheezing. Labs show normal white count and hemoglobin, hyponatremia of 130, normal potassium and renal function. CXR shows no acute process. Testing is positive for influenza A. Patient was given IV fluids for dehydration and hyponatremia. She lives alone and is too weak to manage symptoms at home. She also is having increased wheezing and requiring 2 L and would benefit from continued aerosol treatments. Case will be discussed with the hospitalist for admission. I have personally performed a [id number] assessment of the patient and have reviewed the PA note. My hendrickson findings include: History: 66-year-old female presenting with shortness of breath, fatigue, cough. Patient denies chest pain. Exam: Tachycardic, pulse ox 87% on room air. Dry mucous membranes. Expiratory wheezing bilaterally. Heart is regular and tachycardic. Abdomen is soft and nontender. No focal neurological deficit. Assessment/plan: Chest x-ray, labs obtained. Influenza A positive. She is requiring nasal cannula oxygen and feels too weak to manage these symptoms at home. Discussed with hospitalist for admission. Lab Data Labs: Laboratory Results - last 24 hr 05/11/22 05/11/22 18:54 18:54 WBC 9.8 RBC 5.20 Hgb 14.6 Hct 46.1 MCV 88.7 MCH 28.1 MCHC 31.7 L RDW Std Deviation 49.6 H RDW Coeff of Curtis 15.3 H Plt Count 368 MPV 9.7 Immature Gran % (Auto) 0.400 Neut % (Auto) 76.6 H Lymph % (Auto) 12.3 L [place] % (Auto) 10.1 H Eos % (Auto) 0.1 Baso % (Auto) 0.5 Absolute Neuts (auto) 7.5 Absolute Lymphs (auto) 1.21 Nucleated RBC % 0 Sodium 130 L Potassium 3.7 Chloride 91 L Carbon Dioxide 31.0 Anion Gap 8 BUN 19 H Creatinine 0.98 Estim Creat Clear Calc 49.44 Est GFR (MDRD) Af Amer 72 Est GFR (MDRD) Non-Af 60 BUN/Creatinine Ratio 19.3 Glucose 93 Calcium 9.6 Radiography Diagnostic Testing: Clinical Impression(s) from Imaging Studies Chest X-Ray 05/11/22 19:20 IMPRESSION: No radiographic evidence of acute cardiopulmonary disease. Electronically Signed: Julian Whiting MD at 19:52 EST Reading Location ID and State: [facility] / [place] Tel , Service support , Discharge Plan Dx/Rx/DC Orders Clinical Impression: Influenza A, Dehydration, Acute hyponatremia Disposition Disposition: Acute Care Hospital [facility] Discharge Date/Time: 05/11/22 21:29
--- NOTE | 2022-05-11 19:20 | RAD_ITS ---
INDICATION: cough EXAMINATION/TECHNIQUE: X-RAY - portable upright AP chest x-ray COMPARISON: 12/09/2021 FINDINGS: LINES/DEVICES: Stable right-sided port. LUNGS: No consolidation, edema or effusion. No pneumothorax. MEDIASTINUM AND CARDIOVASCULAR STRUCTURES: Cardiac silhouette stable within upper normal limits. BONES AND SOFT TISSUES: Unremarkable. RAD/Chest 1 View (Portable) IMPRESSION: No radiographic evidence of acute cardiopulmonary disease. Electronically Signed: Julian Whiting MD at 19:52 EST ,
[2022-05-11] MEDS: 0.9% Normal Saline 1,000 ML 1000 ML IV (19:22)
[2022-05-11] MEDS: Ipratropium/Albuterol Sulfate 3 ML AMPUL.NEB INHALATION ×2 (19:27→23:36)
[2022-05-11 19:29] LABS: Absolute Lymphocyte Count 1.21 X10^3/uL (0.83-4.51); Absolute Neutrophil Count 7.5 X10^3/uL (2.0-7.7); Basophil# 0.05 X10^3/uL; Basophil% 0.5 % (0-1); Eosinophil# 0.01 X10^3/uL; Eosinophils% 0.1 % (0-5); Hematocrit 46.1 % (37-47); Hemoglobin 14.6 g/dL (12.0-15.0); Lymphocyte # 1.21 X10^3/ul (0.83-4.51); Lymphocyte % 12.3 % (19-41); Mean Corp Hgb Conc 31.7 g/dL (32-36); Mean Corpuscular Hgb 28.1 pg (27.0-32.0); Mean Corpuscular Volume 88.7 fL (81-99); Mean Platelet Vol. 9.7 fl (6.2-12.0); Monocyte# 0.99 X10^3/uL; Monocyte% 10.1 % (0-10); NRBC Flagged by Analyzer 0 % (0-5); Neutrophil # 7.51 X10^3/uL (2.7-7.7); Neutrophil % 76.6 % (47-70); Platelet Count 368 K/mm3 (150-450); RBC Distribution Width CV 15.3 % (11.6-14.6); RBC Distribution Width SD 49.6 fl (35.1-43.9); White Blood Count 9.8 K/mm3 (4.4-11.0)
[2022-05-11 19:40] LABS: Anion Gap 8 (5-15); BUN 19 mg/dL (7-18); BUN/Creat Ratio 19.3 RATIO (10-20); Calcium,Total 9.6 mg/dL (8.5-10.1); Chloride 91 mmol/L (98-107); Creatinine, Serum 0.98 mg/dL (0.55-1.02); EST Glomerular Filtration Rate 60 mL/min (>60); Est Glom Filt Rate - Afr Amer 72 mL/min (>60); Estimated Creatinine Clearance 49.44 ml/min; Glucose 93 mg/dL (74-106); Potassium 3.7 mmol/L (3.5-5.1); Sodium Level 130 mmol/L (136-145)
[2022-05-11] MEDS: Acetaminophen 325 MG Tablet 650 MG PO (20:32)
--- NOTE | 2022-05-11 21:01 | PCM.HP.STD ---
HPI - General General Date of Admission: 05/11/22 Date of Service: 05/11/22 Chief Complaint: Flulike symptoms HPI Narrative RAFIQ ALCANTAR, is a 66 F with a significant history of COPD; Crohn's disease on baseline 20 mg prednisone; selective immunodeficiency disorder and atrial fibrillation who presents to emergency department with 5-day history of progressively worsening flulike symptoms. Has symptoms started with a sore throat. She then developed a cough which is not progressively worsening. Also she reports subjective fever and chills. She reports shortness of breath. She reports body aches. Patient lives at home by herself and she is having difficulty even getting out of of bed. On presentation emergency provider. Patient reported dry mucous membrane. Reportedly patient's was prescribed as needed oxygen of 5 L/min nasal cannula oxygen at home. However patient is not using her as needed oxygen. [facility] Medical History A-fib Anemia Arthritis Asthma Back problem Bone fracture Chronic bronchitis Chronic pain COPD (chronic obstructive pulmonary disease) CPAP (continuous positive airway pressure) dependence Crohns disease Essential hypertension Fibromyalgia Former smoker Gallstones Gastrointestinal distress GERD (gastroesophageal reflux disease) History of blood transfusion History of echocardiogram HTN (hypertension) Hypertension Immunodeficiency disorder, selective immunoglobulin Left ureteral calculus New onset a-fib OA (osteoarthritis) SARAHY (obstructive sleep apnea) Osteopenia Osteoporosis Pancreatic divisum Paroxysmal atrial fibrillation PNE Pulmonary HTN Screening for colon cancer Seasonal allergies Skin cancer Skin lesion Sleep apnea Unintentional weight loss Vitamin deficiency Home Medications erythromycin 5 mg/gram (0.5 %) eye ointment 1 applic ophthalmic (eye) QHS ROSECA 06/20/14 [History Last Taken 02/28/22] morphine 15 mg immediate release tablet 15 mg PO TID PAIN 10/05/18 [History Last Taken 02/28/22] pantoprazole 40 mg tablet,delayed release 40 mg PO DAILY PRN Acid Reflux 05/29/20 [History Last Taken Unknown] prednisone 20 mg tablet 10 mg PO DAILY@0800 steroid 05/29/20 [History Last Taken 02/28/22] diphenoxylate-atropine 2.5 mg-0.025 mg tablet 6 tablet PO 0400 Diarrhea/Loose Stools 09/06/20 [History Last Taken 02/28/22] calcitriol 0.25 mcg capsule 0.25 mcg PO DAILY 05/29/21 [History Last Taken 02/28/22] polysaccharide iron complex 150 mg iron capsule (Ferrex) 150 mg PO DAILY PRN SUPPLEMENT 05/29/21 [History Last Taken Unknown] levothyroxine 50 mcg tablet 50 mcg PO DAILY 12/09/21 [History Last Taken 02/28/22] amiodarone 200 mg tablet 100 mg PO DAILY heart #45 tabs 12/11/21 [Rx Last Taken 02/28/22] digoxin 125 mcg (0.125 mg) tablet 125 mcg PO DAILY heart #90 tabs 12/11/21 [Rx Last Taken 02/28/22] rivaroxaban 20 mg tablet (Xarelto) 20 mg PO DAILY #90 tabs 12/11/21 [Rx Last Taken 02/28/22] loratadine 10 mg tablet (Claritin) 10 mg PO DAILY PRN ALLERGIES 03/01/22 [History Last Taken Unknown] phenazopyridine 200 mg tablet (Pyridium) 200 mg PO TID PRN PRN Bladder Spasms 7 days #30 tabs 03/03/22 [Rx Last Taken Unknown] sildenafil 25 mg tablet (Viagra) 25 mg PO DAILY PRN 05/07/22 [History Last Taken Unknown] Allergy/AdvReac Type Severity Reaction Status Date / Time codeine Allergy Severe ANGIOEDEMA/LEG Verified 05/11/22 18:42 SWELLING Penicillins Allergy Severe ANGIOEDEMA/LEG Verified 05/11/22 18:42 SWELLING Sulfa (Sulfonamide Allergy Severe ANGIOEDEMA/LEG Verified 05/11/22 18:42 Antibiotics) SWELLING sulfasalazine Allergy Severe ANGIOEDEMA/LEG Verified 05/11/22 18:42 [From Azulfidine] SWELLING Family History Father Anemia Heart disease Hypertension CVA (cerebral vascular accident) Mother Arthritis Cancer Osteoporosis Sister Arthritis Lung disease Surgical History History of kyphoplasty (~07/07/16) History of left knee replacement History of pneumonectomy History of resection of small bowel History of right heart catheterization (RHC) (~05/09/16) History of tonsillectomy History of total hysterectomy with bilateral salpingo-oophorectomy (BSO) Leg fracture, right Social History Smoking Status: Former smoker how long ago did patient quit smokin second hand exposure: No alcohol intake: current alcohol intake frequency: other substance use type: does not use caffeine: Yes Type: carbonated beverages, coffee and tea what type of physical activity do you participate in: none seatbelt use: always 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 All other systems were reviewed and are negative Vital Signs Vital Signs Vital Signs: 05/11/22 18:43 05/11/22 18:48 05/11/22 18:48 Temperature 99.3 F H 99.3 F H Temperature Source Oral Oral Pulse Rate 112 H 108 H Respiratory Rate 22 H 25 H Respiratory Effort Respiratory Pattern Blood Pressure 192/110 H 192/110 H Blood Pressure Mean 137 137 Pulse Ox 92 87 88 Oxygen Delivery Method Room Air Room Air Room Air Oxygen Flow Rate (L/min) 05/11/22 18:48 05/11/22 19:01 05/11/22 19:28 Temperature Temperature Source Pulse Rate 108 H Respiratory Rate 18 Respiratory Effort Short of Breath Respiratory Pattern Normal Blood Pressure Blood Pressure Mean Pulse Ox 100 Oxygen Delivery Method Room Air Nasal Cannula Oxygen Flow Rate (L/min) 3 Weight Weight: 103.5 kg Body Mass Index (BMI) 38.0 Physical Exam Narrative Physical exam: General: In distress from coughing spell. Well-nourished, well-developed. Head: Normocephalic, atraumatic, no tenderness Eyes: Vision is grossly intact. EOMI ENT, no trauma, moist mucous membranes, no rhinorrhea Neck: Nontender, No thyromegaly. CVS: Tachycardia. S1-S2 present. No murmur, gallop or rub. Respiratory : Wheezing, chest wall nontender. Abdomen: Soft, nontender, nondistended, normal bowel sounds, no masses : Deferred Back: Nontender, no CVA tenderness. Extremities: Nontender full range of motion, no trauma. Edema bilateral legs. Skin: Normal color, no trauma, abrasions Neuro: Alert, oriented, cranial nerves II through XII grossly intact. Psychiatry: Normal mood. Normal affect. Not depressed. Not anxious. Results Lab / Micro Data Attestation: I reviewed the patient's lab results. Result Diagrams: 05/11/22 18:54 05/11/22 18:54 Labs: Laboratory Results - last 24 hr 05/11/22 18:54: WBC 9.8, RBC 5.20, Hgb 14.6, Hct 46.1, MCV 88.7, MCH 28.1, MCHC 31.7 L, RDW Std Deviation 49.6 H, RDW Coeff of Curtis 15.3 H, Plt Count 368, MPV 9.7, Immature Gran % (Auto) 0.400, Neut % (Auto) 76.6 H, Lymph % (Auto) 12.3 L, [place] % (Auto) 10.1 H, Eos % (Auto) 0.1, Baso % (Auto) 0.5, Absolute Neuts (auto) 7.5, Absolute Lymphs (auto) 1.21, Nucleated RBC % 0 05/11/22 18:54: Sodium 130 L, Potassium 3.7, Chloride 91 L, Carbon Dioxide 31.0, Anion Gap 8, BUN 19 H, Creatinine 0.98, Estim Creat Clear Calc 49.44, Est GFR (MDRD) Af Amer 72, Est GFR (MDRD) Non-Af 60, BUN/Creatinine Ratio 19.3, Glucose 93, Calcium 9.6 Micro: Microbiology 05/11/22 19:19 Nasal Secretion SARS-CoV-2 & FLU Antigen (Rapid) - Final Influenzae A Radiology Impression Chest X-Ray 05/11/22 19:20 IMPRESSION: No radiographic evidence of acute cardiopulmonary disease. Electronically Signed: Julian Whiting MD at 19:52 EST , Assessment & Plan Assessment/Plan (1) Influenza A: (2) Hypoxemia: PLAN: Plan Influenza A infection Rapid COVID-negative. Influenza A positive. CXR independently reviewed confirms no acute cardiopulmonary process. Scheduled DuoNeb Albuterol as needed On home prednisone 20 mg daily for her Crohn's disease. Escalate steroid dose. Solu-Medrol 40 mg every 8 hours IV ordered. Solu-Medrol Continue oxygen supplementation as needed. CBC showed normal white counts but with neutrophilia of 76.6%; lymphopenia of 12.3%; and monocytosis of 10.1%. Trend CBC. Hyponatremia Sodium on presentation was 130. BUN is mildly elevated at 19. Likely secondary to poor intake. Gentle IV hydration ordered. Trend BMP. History of paroxysmal A. fib Patient is sinus tach on presentation. Continue home medications. Placed on telemetry on MedSur. Chronic respiratory failure on oxygen/hypoxia Stable Charges/Coding Visit Charges Inpatient E&M: 42155 Init Hosp L3
[2022-05-11] MEDS: predniSONE 20 MG Tablet 40 MG PO (21:14)
[2022-05-11] MEDS: guaiFENesin 1,200 MG Tablet 1200 MG PO (23:46)
[2022-05-11] MEDS: 0.9% Saline Lock 10 ML Syringe IV (23:48)
[2022-05-11] MEDS: 0.9% Normal Saline 1,000 ML 75 ML IV (23:49)
[2022-05-12] VITALS (19 sets, daily range): BP systolic 147–175; BP diastolic 81–97; PULSE 78–94; RESP 18–22; TEMP 36.3–37.3; O2SAT 86–98
[2022-05-12 06:49] LABS: Absolute Lymphocyte Count 0.37 X10^3/uL (0.83-4.51); Absolute Neutrophil Count 6.3 X10^3/uL (2.0-7.7); Basophil# 0.02 X10^3/uL; Basophil% 0.3 % (0-1); Hematocrit 39.4 % (37-47); Hemoglobin 11.9 g/dL (12.0-15.0); Lymphocyte # 0.37 X10^3/ul (0.83-4.51); Lymphocyte % 5.3 % (19-41); Mean Corp Hgb Conc 30.2 g/dL (32-36); Mean Corpuscular Volume 92.7 fL (81-99); Mean Platelet Vol. 9.2 fl (6.2-12.0); Monocyte# 0.29 X10^3/uL; Monocyte% 4.1 % (0-10); NRBC Flagged by Analyzer 0 % (0-5); Neutrophil % 89.9 % (47-70); POSITIVE DIFFERENTIAL YES; Platelet Count 324 K/mm3 (150-450); RBC Distribution Width CV 15.2 % (11.6-14.6); RBC Distribution Width SD 52.2 fl (35.1-43.9); Red Blood Count 4.25 M/mm3 (4.2-5.4)
[2022-05-12 07:21] LABS: Anion Gap 5 (5-15); BUN 17 mg/dL (7-18); BUN/Creat Ratio 19.6 RATIO (10-20); Calcium,Total 8.6 mg/dL (8.5-10.1); Chloride 98 mmol/L (98-107); Creatinine, Serum 0.87 mg/dL (0.55-1.02); EST Glomerular Filtration Rate 69 mL/min (>60); Est Glom Filt Rate - Afr Amer 83 mL/min (>60); Estimated Creatinine Clearance 55.69 ml/min; Glucose 115 mg/dL (74-106); Potassium 4.9 mmol/L (3.5-5.1); Sodium Level 134 mmol/L (136-145)
[2022-05-12] MEDS: Ipratropium/Albuterol Sulfate 3 ML AMPUL.NEB INHALATION ×4 (07:21→20:43)
[2022-05-12 07:23] LABS: Differential Indicated SCAN CRITERIA MET
[2022-05-12 08:41] LABS: AST(SGOT) 15 U/L (15-37); Alanine Aminotransfer ALT/SGPT 20 U/L (13-56); Albumin, Serum 2.5 g/dL (3.2-5.0); Alkaline Phosphatase 67 U/L (45-117); Bilirubin, Direct 0.27 mg/dL (0.00-0.30); Globulin 3.9 g/dL (2.2-4.2); Magnesium 2.1 mg/dL (1.6-2.6); Phosphorus 4.3 mg/dL (2.5-4.9); Protein, Total 6.4 g/dL (6.4-8.2)
[2022-05-12] MEDS: morphine SR 15 MG Tablet PO ×3 (09:22→22:29)
[2022-05-12] MEDS: Ammonium Lactate 225 gm Bottle 1 APPLIC TOPICAL ×2 (09:23→22:29)
[2022-05-12] MEDS: guaiFENesin 1,200 MG Tablet 1200 MG PO ×2 (09:24→22:29)
[2022-05-12] MEDS: Digoxin 125 MCG Tablet PO (09:25)
[2022-05-12] MEDS: Calcitriol 0.25 MCG Capsule PO (09:25)
[2022-05-12] MEDS: Amiodarone 200 MG Tablet 100 MG PO (09:25)
[2022-05-12] MEDS: Levothyroxine 50 MCG Tablet PO (09:26)
[2022-05-12] MEDS: Diphenoxylate/Atrop 1 Tablet 6 TABLET PO (12:16)
[2022-05-12] MEDS: 0.9% Normal Saline 1,000 ML 75 ML IV (12:18)
--- NOTE | 2022-05-12 12:55 | PN.HOSP_ITS ---
Subjective Subjective Follow-up on hypoxia/acute influenza A: Patient was seen and examined. She admits to feeling somehow improved. She is on 2 L of oxygen. Not on oxygen at home. She still complains of wheezes. Denied any fever or chills. Objective Data Objective Data Vital Signs: Vital Signs Temp Pulse Resp BP Pulse Ox O2 Del Method O2 Flow Rate 98.6 F 89 19 H 169/97 H 98 Nasal Cannula 2 05/12/22 09:10 05/12/22 11:05 05/12/22 11:05 05/12/22 09:10 05/12/22 09:10 05/12/22 09:10 05/12/22 09:10 Oxygen Flow Rate (L/min) 2 Oxygen Delivery Method Nasal Cannula Weight: 102.8 kg Body Mass Index (BMI) 37.7 Intake & Output: Intake and Output for Last 24 Hours 05/10/22 05/11/22 05/12/22 23:59 23:59 23:59 Intake Total 1000 / 1000 1236.25 / 1236.25 Output Total 1300 / 1300 Balance 1000 / 1000 -63.75 / -63.75 Lab / Micro Data Result Diagrams: 05/12/22 06:40 05/12/22 06:40 Labs: Laboratory Results - last 24 hr 05/11/22 18:54: WBC 9.8, RBC 5.20, Hgb 14.6, Hct 46.1, MCV 88.7, MCH 28.1, MCHC 31.7 L, RDW Std Deviation 49.6 H, RDW Coeff of Curtis 15.3 H, Plt Count 368, MPV 9.7, Immature Gran % (Auto) 0.400, Neut % (Auto) 76.6 H, Lymph % (Auto) 12.3 L, [place] % (Auto) 10.1 H, Eos % (Auto) 0.1, Baso % (Auto) 0.5, Absolute Neuts (auto) 7.5, Absolute Lymphs (auto) 1.21, Nucleated RBC % 0 05/11/22 18:54: Sodium 130 L, Potassium 3.7, Chloride 91 L, Carbon Dioxide 31.0, Anion Gap 8, BUN 19 H, Creatinine 0.98, Estim Creat Clear Calc 49.44, Est GFR (MDRD) Af Amer 72, Est GFR (MDRD) Non-Af 60, BUN/Creatinine Ratio 19.3, Glucose 93, Calcium 9.6 05/12/22 06:40: WBC 7.0, RBC 4.25, Hgb 11.9 L, Hct 39.4, MCV 92.7, MCH 28.0, MCHC 30.2 L, RDW Std Deviation 52.2 H, RDW Coeff of Curtis 15.2 H, Plt Count 324, MPV 9.2, Immature Gran % (Auto) 0.400, Neut % (Auto) 89.9 H, Lymph % (Auto) 5.3 L, [place] % (Auto) 4.1, Eos % (Auto) 0.0, Baso % (Auto) 0.3, Absolute Neuts (auto) 6.3, Absolute Lymphs (auto) 0.37 L, Nucleated RBC % 0, Differential Comment COMMENT 05/12/22 06:40: Sodium 134 L, Potassium 4.9, Chloride 98, Carbon Dioxide 31.0, Anion Gap 5, BUN 17, Creatinine 0.87, Estim Creat Clear Calc 55.69, Est GFR (MDRD) Af Amer 83, Est GFR (MDRD) Non-Af 69, BUN/Creatinine Ratio 19.6, Glucose 115 H, Calcium 8.6 05/12/22 06:40: Phosphorus 4.3, Magnesium 2.1, Total Bilirubin 1.20 H, Direct Bilirubin 0.27, AST 15, ALT 20, Alkaline Phosphatase 67, Total Protein 6.4, Albumin 2.5 L, Globulin 3.9 Micro: Microbiology 05/11/22 19:19 Nasal Secretion SARS-CoV-2 & FLU Antigen (Rapid) - Final Influenzae A Radiography Diagnostic Testing: Radiology Impression Chest X-Ray 05/11/22 19:20 IMPRESSION: No radiographic evidence of acute cardiopulmonary disease. Electronically Signed: Julian Whiting MD at 19:52 EST Reading Location ID and State: [facility] / [place] Tel , Service support , Physical Exam Narrative Physical exam: General: Alert, Oriented x3, Cooperative, on 2 L of oxygen HEENT: Atraumatic Oral: Moist Mucosa Neck: Supple Lungs: Diminished to auscultation, wheezes++ Cardiovascular: HS I+II, regular, no murmurs Abdomen: Bowel Sounds Present, Soft, Non Tender Extremities: Bilateral lower extremity lymphedema with evidence of cellulitis bilaterally, worse on the right Skin: Erythema, evidence of bilateral lower extremity cellulitis Neurological: Grossly intact Psych/Mental Status: Appropriate Assessment & Plan Assessment/Plan (1) Influenza A: PLAN: Plan 1. Acute hypoxia secondary to acute influenza A Patient with underlying history of COPD/SARAHY/pulmonary hypertension Patient is currently on 2 L of oxygen, continue with breathing treatments, IV steroids, encourage use of incentive spirometer. Wean off oxygen for SPO2 more than 94% Patient is not on Tamiflu because she is out of the window for Tamiflu; symptoms started 5 days prior to admission 2. Bilateral leg cellulitis on chronic lymphedema, continue Lac-Hydrin 3. Hyponatremia, acute, sodium is 134, slightly improved, will continue to trend 4. Paroxysmal atrial fibrillation, continue on digoxin, amiodarone, Xarelto 5. Hypertension, uncontrolled, not on chronic medication, will continue with hydralazine as needed for now 6. Chronic back pain/compression fractures, continue chronic pain medication with MS Contin with stool regimen 7. DVT prophylaxis?Xarelto Charges/Coding Visit Charges Inpatient E&M: 82046 Subs Hosp L3
--- NOTE | 2022-05-12 14:39 | CASEMGMT ---
MOHSEN MCGARRY Assessment: Face to Face with pt for initial transition planning/care coordination assessment. MOHSEN MCGARRY introduced self and role at [facility], pt voices understanding and consents to assessment. Pt sitting in bed. Appears to be in no distress. Pt is A/O x4 and answers all questions appropriately at this time. Care providers, pharmacy, and demographics verified/updated. Admitting Dx: Influenza A Infection. PCP: Julian Brand. Specialists: None reported. Preferred Pharmacy: [facility]. Insurance: Medicare Part A B. [facility]. Prescription Benefit: Yes. LW/HPOA: Pt reports having a LW/HPOA. Pt reports having the paperwork at home and is aware to bring copies to [facility] to place on file. Friend, Gabbie Thompson is HPOA. LNOK: Brother- Lexi Herrera. Friend- Gabbie Thompson. Living Arrangements: Pt lives alone in a one story condo with one step to enter and exit. Transportation: Pt drives self and has friends that are able to drive if her if needed. DME/HHC/SNF: Pt has a cane, grab bars, high toilet, and high counters at home. Pt has a bariatric walker. Pt reports being on 3L of oxygen as needed. Pt reports having supplies. [facility] Pt reports having [facility] for PT in the past. Pt reports being in TCU in the past and denies any SNF stays. Pt states no concerns with going home at time of dc. Pt states no further concerns/needs. CM to follow. Advised pt to ask CM if any further question/concerns/needs arise, voices understanding. Pt states she navigates alone but has several friends that assist with cleaning and errands if needed. Pt Goal: Home. No needs. Plan:?TBD.
--- NOTE | 2022-05-12 14:49 | CASEMGMT ---
Request sent to Kiersten with [employer] to verify pt's oxygen Order.
[2022-05-12] MEDS: Rivaroxaban 20 MG Tablet PO (16:20)
[2022-05-12] MEDS: hydrALAZINE 20 MG/ML Vial 5 MG IV (18:48)
[2022-05-12] MEDS: 0.9% Saline Lock 10 ML Syringe IV (18:48)
--- NOTE | 2022-05-12 19:00 | PCA ---
EMERGENCY DOCUMENTATION
--- NOTE | 2022-05-12 19:00 | PCA ---
EMERGENCY DOCUMENTATION
--- NOTE | 2022-05-12 19:00 | NURSING ---
Emergency Documentation
[2022-05-12] MEDS: Clindamycin 600 MG/50 ML BAG 100 MG IV ×2 (19:16→22:28)
[2022-05-13] VITALS (12 sets, daily range): BP systolic 135–142; BP diastolic 63–73; PULSE 78–100; RESP 18–20; TEMP 36.6–36.7; O2SAT 85–97
[2022-05-13] MEDS: Ipratropium/Albuterol Sulfate 3 ML AMPUL.NEB INHALATION ×3 (01:10→11:32)
[2022-05-13] MEDS: Clindamycin 600 MG/50 ML BAG 100 MG IV (05:00)
[2022-05-13] MEDS: Levothyroxine 50 MCG Tablet PO (05:00)
[2022-05-13 08:12] LABS: Absolute Lymphocyte Count 0.39 X10^3/uL (0.83-4.51); Absolute Neutrophil Count 8.3 X10^3/uL (2.0-7.7); Basophil# 0.01 X10^3/uL; Basophil% 0.1 % (0-1); Hematocrit 38.5 % (37-47); Hemoglobin 11.6 g/dL (12.0-15.0); Lymphocyte # 0.39 X10^3/ul (0.83-4.51); Lymphocyte % 4.2 % (19-41); Mean Corp Hgb Conc 30.1 g/dL (32-36); Monocyte# 0.49 X10^3/uL; Monocyte% 5.3 % (0-10); NRBC Flagged by Analyzer 0 % (0-5); Neutrophil # 8.27 X10^3/uL (2.7-7.7); Neutrophil % 89.6 % (47-70); POSITIVE DIFFERENTIAL YES; Platelet Count 381 K/mm3 (150-450); RBC Distribution Width CV 15.1 % (11.6-14.6); RBC Distribution Width SD 51.8 fl (35.1-43.9); Red Blood Count 4.14 M/mm3 (4.2-5.4); White Blood Count 9.2 K/mm3 (4.4-11.0)
[2022-05-13 08:48] LABS: ALB/GLOB Ratio 0.7 RATIO (0.9-2.4); AST(SGOT) 12 U/L (15-37); Alanine Aminotransfer ALT/SGPT 18 U/L (13-56); Albumin, Serum 2.6 g/dL (3.2-5.0); Alkaline Phosphatase 62 U/L (45-117); Anion Gap 6 (5-15); BUN 22 mg/dL (7-18); BUN/Creat Ratio 21.8 RATIO (10-20); Calcium,Total 8.8 mg/dL (8.5-10.1); Chloride 98 mmol/L (98-107); Creatinine, Serum 1.01 mg/dL (0.55-1.02); EST Glomerular Filtration Rate 58 mL/min (>60); Est Glom Filt Rate - Afr Amer 70 mL/min (>60); Estimated Creatinine Clearance 47.97 ml/min; Globulin 3.6 g/dL (2.2-4.2); Glucose 146 mg/dL (74-106); Potassium 3.8 mmol/L (3.5-5.1); Protein, Total 6.2 g/dL (6.4-8.2); Sodium Level 135 mmol/L (136-145)
[2022-05-13 08:59] LABS: Differential Indicated SCAN CRITERIA MET
[2022-05-13] MEDS: Calcitriol 0.25 MCG Capsule PO (10:09)
[2022-05-13] MEDS: Digoxin 125 MCG Tablet PO (10:09)
[2022-05-13] MEDS: morphine SR 15 MG Tablet 30 MG PO (10:09)
[2022-05-13] MEDS: Amiodarone 200 MG Tablet 100 MG PO (10:15)
[2022-05-13] MEDS: Ammonium Lactate 225 gm Bottle 1 APPLIC TOPICAL (10:15)
[2022-05-13] MEDS: guaiFENesin 1,200 MG Tablet 1200 MG PO (10:16)
--- NOTE | 2022-05-13 11:36 | DCINST_ITS ---
Discharge Instructions Diet Discharge Diet: Low fat / Low cholesterol and 2000 mg Sodium Diet Activity Discharge Activity: Return to Normal Activity Follow Up Care Test Results: Test results from this visit will be discussed in further detail at your follow- up appointment, if applicable. Discharge Plan Admission Admit Date/Time: 05/11/22 20:49 Primary Reason for Your Visit: Hypoxia/Acute influenza A Attending Provider: Nikia Dixon Primary Care Provider: Julian Brand [employer] Providers: Tunde Johnston ; Joya Clemente Instructions Additional Instructions / Restrictions: You are being discharged with oxygen. Continue to use your oxygen all the time. Be careful of going near open flames whilst on oxygen. Continue to use your incentive spirometer. Continue to remain active and eat healthy. Discharge Orders/Prescriptions Prescriptions: New Mucus Relief ER 1,200 mg Tablet Extended Release 12hr 1,200 mg PO BID 7 Days Qty: 14 0RF prednisone 10 mg tablet See Taper PO DAILY Qty: 30 0RF Taper: Prednisone Taper 40 mg WITH BREAKFAST for 3 Days and 0 Hour 30 mg WITH BREAKFAST for 3 Days and 0 Hour 20 mg WITH BREAKFAST for 3 Days and 0 Hour 10 mg WITH BREAKFAST for 3 Days and 0 Hour ipratropium-albuterol 0.5 mg-3 mg(2.5 mg base)/3 mL solution for nebulization 3 ml inhalation Q4H PRN (Reason: shortness of breath or wheezing) 14 Days Qty: 180 0RF Continued pantoprazole 40 mg tablet,delayed release (DR/EC) 40 mg PO DAILY PRN (Reason: Acid Reflux) levothyroxine 50 mcg tablet 50 mcg PO DAILY calcitriol 0.25 mcg capsule 0.25 mcg PO DAILY diphenoxylate-atropine 2.5-0.025 mg tablet 6 tablet PO DAILY ammonium lactate 12 % cream 1 applic TOPICAL BID Label Comments: Apply to the lower legsOtwice dailyE morphine 15 mg tablet extended release 30 mg PO BREAKFAST Label Comments: TAKE 1 TABLET BY MOUTH 3NTIMES DAILY Xarelto 20 mg tablet 20 mg PO DAILY morphine 15 mg tablet extended release 15 mg PO QHS Label Comments: TAKE 1 TABLET BY MOUTH 3NTIMES DAILY sildenafil (pulm.hypertension) 20 mg tablet 20 mg PO TID amiodarone 200 mg tablet 100 mg PO DAILY Qty: 45 3RF digoxin 125 mcg (0.125 mg) tablet 125 mcg PO DAILY Qty: 90 3RF Referrals / Follow Up: Julian Brand Chi, MD [Primary Care Provider] - 05/13/22 1:40 pm Disposition Disposition (needs filled in before D/C Order can be placed): Home Health Service
--- NOTE | 2022-05-13 12:38 | CASEMGMT ---
Addendum entered by Milady Jama 05/13/22 13:02: Patient denies need for HHC at discharge. Patient provided with [employer] tank from supply. Patient had no further questions or concerns at this time. Original Note: MOHSEN MCGARRY updated by hospitalist that patient will need nebulizer at discharge. MOHSEN MCGARRY in to discuss nebulizer script. Patient states she has home oxygen through [employer] and request referral for nebulizer be sent there. MOHSEN MCGARRY inquired if patient could burr picker nebulizer from [place] office and states no. MOHSEN MCGARRY called Harley at [facility] and arranged for nebulizer to be delivered to patient's home tomorrow with oxygen tank exchange. MOHSEN MCGARRY sent referral to [employer] via [employer]. Patient had no further questions or concerns at this time.
--- NOTE | 2022-05-13 13:02 | DS.PCM_ITS ---
Providers Date of Admission: 05/11/22 Date of Discharge: 05/13/22 Primary Care Physician: Dr. Julian Brand MD Reason For Visit: INFLUENZA A INFECTION Diagnosis Discharge Diagnosis (1) Influenza A: Status: Acute Code(s): J10.1 - Influenza due to other identified influenza virus with other respiratory manifestations Plan 1. Acute hypoxia secondary to acute influenza A 2. Bilateral leg cellulitis on chronic lymphedema 3. Hyponatremia 4. Paroxysmal atrial fibrillation 5. Hypertension 6. Chronic back pain/compression fractures Medications at Discharge Home Medications pantoprazole 40 mg tablet,delayed release 40 mg PO DAILY PRN Acid Reflux 05/29/20 diphenoxylate-atropine 2.5 mg-0.025 mg tablet 6 tablet PO DAILY Diarrhea/Loose Stools 09/06/20 calcitriol 0.25 mcg capsule 0.25 mcg PO DAILY supplement 05/29/21 levothyroxine 50 mcg tablet 50 mcg PO DAILY thyroid 12/09/21 amiodarone 200 mg tablet 100 mg PO DAILY heart #45 tabs 12/11/21 digoxin 125 mcg (0.125 mg) tablet 125 mcg PO DAILY heart #90 tabs 12/11/21 ammonium lactate 12 % topical cream 1 applic topical BID dry legs 05/12/22 morphine 15 mg tablet,extended release 15 mg PO QHS PAIN 05/12/22 morphine 15 mg tablet,extended release 30 mg PO BREAKFAST pain 05/12/22 rivaroxaban 20 mg tablet (Xarelto) 20 mg PO DAILY blood thinner 05/12/22 sildenafil (pulm.hypertension) 20 mg tablet 20 mg PO TID Pulmonary HTN 05/12/22 clindamycin HCl 300 mg capsule 300 mg PO Q6H 5 days #20 caps 05/13/22 guaifenesin 1,200 mg tablet, extended release 12 hr (Mucus Relief ER) 1,200 mg PO BID 7 days #14 tabs 05/13/22 ipratropium 0.5 mg-albuterol 3 mg (2.5 mg base)/3 mL nebulization soln 3 ml inhalation Q4H PRN shortness of breath or wheezing 14 days #180 mL 05/13/22 prednisone 10 mg tablet See Taper PO DAILY #30 tabs 05/13/22 Hospital Course Procedures None Summary of Care Provided Minutes Spent on Discharge: 35 Hospital Course: 66-year-old female past medical history of COPD not on oxygen, Crohn's disease, surgery related facial earlier, chronic lymphedema who comes in with a 5-day history of worsening flulike symptoms. Her prominent symptoms are sore throat with cough. She also admitted to subjective fever and chills. In the emergency room, patient was requiring 5 L of oxygen. Admitting chest x- ray was unremarkable. Influenza A was positive. Patient was out of the window for Tamiflu. She was admitted to the progressive care unit and monitored on breathing treatment, IV Solu-Medrol. Patient was noted also to have had evidence of acute cellulitis on chronic bilateral severe lymphedema. She has allergy to penicillins and was started on clindamycin. She continued to improve and qualified for 2 L of home oxygen at time of discharge. She was discharged on a prednisone taper as well as 5 more days of clindamycin. She had an outpatient appointment on the day of discharge. Physical Exam Narrative Physical exam: General: Alert, Oriented x3, Cooperative, on 2 L of oxygen HEENT: Atraumatic Oral: Moist Mucosa Neck: Supple Lungs: Diminished to auscultation, wheezes++ Cardiovascular: HS I+II, regular, no murmurs Abdomen: Bowel Sounds Present, Soft, Non Tender Extremities: Bilateral lower extremity lymphedema with evidence of cellulitis bilaterally, worse on the right Skin: Erythema, evidence of bilateral lower extremity cellulitis Neurological: Grossly intact Psych/Mental Status: Appropriate Weight / BMI Weight Weight: 102.8 kg Body Mass Index (BMI) 37.7 ABG / Lab / Microbiology Data Result Diagrams: 05/13/22 07:35 05/13/22 07:35 Laboratory: Laboratory Results - last 24 hr 05/13/22 07:35: WBC 9.2, RBC 4.14 L, Hgb 11.6 L, Hct 38.5, MCV 93.0, MCH 28.0, MCHC 30.1 L, RDW Std Deviation 51.8 H, RDW Coeff of Curtis 15.1 H, Plt Count 381, MPV 10.0, Immature Gran % (Auto) 0.800, Neut % (Auto) 89.6 H, Lymph % (Auto) 4.2 L, [place] % (Auto) 5.3, Eos % (Auto) 0.0, Baso % (Auto) 0.1, Absolute Neuts (auto) 8.3 H, Absolute Lymphs (auto) 0.39 L, Nucleated RBC % 0 05/13/22 07:35: Sodium 135 L, Potassium 3.8, Chloride 98, Carbon Dioxide 31.0, Anion Gap 6, BUN 22 H, Creatinine 1.01, Estim Creat Clear Calc 47.97, Est GFR (MDRD) Af Amer 70, Est GFR (MDRD) Non-Af 58 L, BUN/Creatinine Ratio 21.8 H, Glucose 146 H, Calcium 8.8, Total Bilirubin 0.70, AST 12 L, ALT 18, Alkaline Phosphatase 62, Total Protein 6.2 L, Albumin 2.6 L, Globulin 3.6, Albumin/Globulin Ratio 0.7 L Microbiology: Microbiology 05/11/22 19:19 Nasal Secretion SARS-CoV-2 & FLU Antigen (Rapid) - Final Influenzae A D/C Instructions Discharge Diet: Low fat / Low cholesterol and 2000 mg Sodium Diet Meaningful Use Info Meaningful Use Diagnoses (Choose all that apply): None applicable Discharge Plan Admission Admit Date/Time: 05/11/22 20:49 Primary Reason for Your Visit: Hypoxia/Acute influenza A Attending Provider: Nikia Dixon Primary Care Provider: Julian Brand [employer] Providers: Tunde Johnston ; Joya Clemente Instructions Additional Instructions / Restrictions: You are being discharged with oxygen. Continue to use your oxygen all the time. Be careful of going near open flames whilst on oxygen. Continue to use your incentive spirometer. Continue to remain active and eat healthy. Complete your antibiotics Discharge Orders/Prescriptions Prescriptions: New Mucus Relief ER 1,200 mg Tablet Extended Release 12hr 1,200 mg PO BID 7 Days Qty: 14 0RF prednisone 10 mg tablet See Taper PO DAILY Qty: 30 0RF Taper: Prednisone Taper 40 mg WITH BREAKFAST for 3 Days and 0 Hour 30 mg WITH BREAKFAST for 3 Days and 0 Hour 20 mg WITH BREAKFAST for 3 Days and 0 Hour 10 mg WITH BREAKFAST for 3 Days and 0 Hour ipratropium-albuterol 0.5 mg-3 mg(2.5 mg base)/3 mL solution for nebulization 3 ml inhalation Q4H PRN (Reason: shortness of breath or wheezing) 14 Days Qty: 180 0RF clindamycin HCl 300 mg capsule 300 mg PO Q6H 5 Days Qty: 20 0RF Continued pantoprazole 40 mg tablet,delayed release (DR/EC) 40 mg PO DAILY PRN (Reason: Acid Reflux) levothyroxine 50 mcg tablet 50 mcg PO DAILY calcitriol 0.25 mcg capsule 0.25 mcg PO DAILY diphenoxylate-atropine 2.5-0.025 mg tablet 6 tablet PO DAILY ammonium lactate 12 % cream 1 applic TOPICAL BID Label Comments: Apply to the lower legsOtwice dailyE morphine 15 mg tablet extended release 30 mg PO BREAKFAST Label Comments: TAKE 1 TABLET BY MOUTH 3NTIMES DAILY Xarelto 20 mg tablet 20 mg PO DAILY morphine 15 mg tablet extended release 15 mg PO QHS Label Comments: TAKE 1 TABLET BY MOUTH 3NTIMES DAILY sildenafil (pulm.hypertension) 20 mg tablet 20 mg PO TID amiodarone 200 mg tablet 100 mg PO DAILY Qty: 45 3RF digoxin 125 mcg (0.125 mg) tablet 125 mcg PO DAILY Qty: 90 3RF Referrals / Follow Up: Julian Brand Chi, MD [Primary Care Provider] - 05/13/22 1:40 pm Disposition Disposition (needs filled in before D/C Order can be placed): Home, Self Care Charges/Coding Visit Charges Inpatient E&M: 49980 Disch Hosp
[2022-05-13] MEDS: SILDENAFIL CITRATE 20 MG TABLET PO (13:11)
== END 2022-05-13 13:37 | disposition home or self-care (01) | DRG 194 ==
LOC: ED 19:13 → PCU 21:59
PROVIDERS: Physician Assistant; Admitting Provider Hospitalist; Emergency Provider Emergency Medicine; PCP Family Medicine Geriatric Medicine; Visit Provider Internal Medicine
DX: J10.1 Influenza due to other identified influenza virus with other respiratory manifestations (principal); E87.1 Hypo-osmolality and hyponatremia; J96.11 Chronic respiratory failure with hypoxia; L03.115 Cellulitis of right lower limb; L03.116 Cellulitis of left lower limb; K50.90 Crohn's disease, unspecified, without complications; I48.0 Paroxysmal atrial fibrillation; E86.0 Dehydration; J44.9 Chronic obstructive pulmonary disease, unspecified; D64.9 Anemia, unspecified; I10 Essential (primary) hypertension; M79.7 Fibromyalgia; I89.0 Lymphedema, not elsewhere classified; M54.9 Dorsalgia, unspecified; Z79.52 Long term (current) use of systemic steroids; Z87.891 Personal history of nicotine dependence; Z79.01 Long term (current) use of anticoagulants; Z60.2 Problems related to living alone
CPT/HCPCS: 36415; 71045; 80048; 80053; 80076; 83735; 84100; 85025; 87428; 94640; 97110; 97162; 97166; 99285; J7030; A4216

== ENCOUNTER → 2022-07-17 | Outpatient (CLI) | payer MEDICARE, OTHER, SELFPAY ==
--- NOTE | 2022-07-17 10:20 | BI_ITS ---
MAMMOGRAPHY - BILATERAL SCREENING REASON FOR EXAM: Female, 66 years old. Routine annual screening examination. PERTINENT HISTORY: Mother with breast cancer. TECHNIQUE: Digital bilateral breast alli (3D mammographic acquisition) in the CC and MLO projections. 2-D mediolateral oblique (MLO) and craniocaudad (CC) views of both breasts were obtained. CAD: Full Field Digital Mammography with Computer Added Detection was performed. COMPARISON: Comparison is made with prior study 05/23/2021 and 06/01/2017. FINDINGS: Breast Composition: There are scattered areas of fibroglandular density. There are no dominant masses or suspicious calcifications. No other significant abnormalities are identified. There has been no significant change since the prior study. BI/SCRN MAMM (CAD)W/ALLI BILAT IMPRESSION: Stable bilateral screening mammogram. Yearly follow-up mammogram recommended. (A) ASSESSMENT CATEGORY: BIRADS Category 1: Negative. A letter regarding these results will be sent to the patient by the facility within 30 days. Approximately 10% of breast cancers are not detected by mammography. A normal mammogram should not delay biopsy of a clinically suspicious abnormality. [id number] Electronically Signed: Raul Padilla MD at 12:29 EST ,
== END | disposition home or self-care (01) ==
LOC: OPBI 10:19
PROVIDERS: PCP Family Medicine Geriatric Medicine; Visit Provider Registered Nurse
DX: Z12.31 Encounter for screening mammogram for malignant neoplasm of breast (principal)
CPT/HCPCS: 77063; 77067

== ENCOUNTER → 2022-09-18 | Outpatient (CLI) | payer MEDICARE, OTHER, SELFPAY ==
[2022-09-18 13:13] LABS: Absolute Neutrophil Count 10.5 X10^3/uL (2.0-7.7); Basophil# 0.11 X10^3/uL; Basophil% 0.8 % (0-1); Eosinophil# 0.33 X10^3/uL; Eosinophils% 2.5 % (0-5); Hematocrit 43.2 % (37-47); Hemoglobin 12.8 g/dL (12.0-15.0); Lymphocyte % 11.5 % (19-41); Mean Corp Hgb Conc 29.6 g/dL (32-36); Mean Corpuscular Hgb 28.5 pg (27.0-32.0); Mean Corpuscular Volume 96.2 fL (81-99); Mean Platelet Vol. 9.7 fl (6.2-12.0); Monocyte# 0.55 X10^3/uL; Monocyte% 4.2 % (0-10); NRBC Flagged by Analyzer 0 % (0-5); Neutrophil # 10.54 X10^3/uL (2.7-7.7); Neutrophil % 80.6 % (47-70); Platelet Count 509 K/mm3 (150-450); RBC Distribution Width CV 13.5 % (11.6-14.6); Red Blood Count 4.49 M/mm3 (4.2-5.4); White Blood Count 13.1 K/mm3 (4.4-11.0)
[2022-09-18 13:33] LABS: Vitamin D,25 Hydroxy 28.6 ng/mL
[2022-09-18 13:48] LABS: ALB/GLOB Ratio 0.9 RATIO (0.9-2.4); AST(SGOT) 18 U/L (15-37); Alanine Aminotransfer ALT/SGPT 19 U/L (13-56); Albumin, Serum 3.4 g/dL (3.2-5.0); Alkaline Phosphatase 70 U/L (45-117); Anion Gap 2 (5-15); BUN 22 mg/dL (7-18); BUN/Creat Ratio 23.5 RATIO (10-20); Calcium,Total 9.4 mg/dL (8.5-10.1); Chloride 103 mmol/L (98-107); Creatinine, Serum 0.94 mg/dL (0.55-1.02); EST Glomerular Filtration Rate 63 mL/min (>60); Est Glom Filt Rate - Afr Amer 76 mL/min (>60); Globulin 3.7 g/dL (2.2-4.2); Glucose 101 mg/dL (74-106); Potassium 4.3 mmol/L (3.5-5.1); Protein, Total 7.1 g/dL (6.4-8.2); Sodium Level 135 mmol/L (136-145)
== END | disposition home or self-care (01) ==
LOC: POLAB3 09:06
PROVIDERS: PCP Family Medicine Geriatric Medicine; Visit Provider Family Medicine Geriatric Medicine
DX: E55.9 Vitamin D deficiency, unspecified (principal); R53.83 Other fatigue
CPT/HCPCS: 36415; 80053; 82306; 84443; 85025

== ENCOUNTER 2022-10-28 15:30 | Outpatient (RCR) | payer MEDICARE, OTHER, SELFPAY ==
--- NOTE | 2022-09-17 16:52 | HP.PTEVAL_ITS ---
Patient's Visit Information RAFIQ ALCANTAR is a 66 year old F referred to Physical Therapy by Dr. Devora Asencio MD with a diagnosis of LEG PAIN. Date of Evaluation: 09/17/22 Physical Therapist: Pawel Mason, PT, Cert MDT, OCS - Visit Plan Frequency: 2x /Week Duration: 4 Weeks Plan: PT INTERVENTIONS AQUATIC THERAPY BLE AROM/FLEXABLITY ,STRENGTHENING ,ENDURANCE PROGRAM ,AND STABILZATION EX'S - Subjective This 66 y/o female presents to physical therapy with leg pain. Patient has lymphedema bilateral lower legs and h/o lumbar fracture with kyphoplasty . 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 Patient recently seen DR and recommended PT in Aquatics. Patient is under care of pain management and get injections every 3 months in lumbar . Patient denies paresthesia/tingling-. Location of pain today is lower lumbar. Aggravating factors walking/standing ,unable to lift to bend due to pain. Alleviating factors lumbar sitting and rest. Patient takes extended morphine 3 x/day. Patient is able to dress and bath . Patient lives in [facility] with [facility]. Patient has walk in shower. Patient uses compression pump for home. Patient pain affects QOL and function along ADLS. Goals to decrease pain in lumbar. Patient also has h/o small bowel reconstruction x5. SOCIAL: single. VOCATION: retired. - Pain Bilateral Back Pain Intensity (Out of 10): 8 Pain Intensity Range: 10 - Objective POSTURE: mild forward posture. GAIT: ambulates with cane forward posture 2 point gait. BALANCE: good-. AROM KNEE FLEXION: 0-110 degrees supine flexion ,hip flexion 95 degrees. MMT: quads/hams 4/5 ,(peak force) hip flexion 0 right ,left 6 .1 ,hip abduction bilateral 0 ,ankle 4/5. LUMBAR ROM: flexion mod loss ,extension severe loss - Special Tests L/S Slump test left side: Negative L/S Slump test right side: Negative L/S Left Straight Leg Raise: Negative L/S Right Straight Leg Raise: Negative - Balance/Special Test Scores Lower Extremity Functional Score: 10 - Goals Goal 1:: I with Aquatic therapy program Goal Time Frame: 4-6 Weeks Goal 2:: Patient to demonstrate 40 % improved function and less pain Goal Time Frame: 4-6 Weeks Goal 3:: Patient to improve peak force of hips by 5 to improve gait and function Goal Time Frame: 4-6 Weeks Goal 4:: Patient to improve lumbar ROM for ADL's and put on shoes Goal Time Frame: 4-6 Weeks Goal 5:: Patient to improve LFES score by 5 points or > to improve QOL and function Goal Time Frame: 4-6 Weeks - Rehabilitation Potential Physical Therapy Diagnosis: This patient has multiple comorbities to influence patient condition along lymphedema and compression fractures with weakness in legs especially hips and poor lumbar ROM ,decrease gait and standing due to back pain thus benefit from skilled PT Rehabilitation Potential: Good - Anticipated Interventions Patient/Client Instruction: Educate patient on: Condition, Plan of Care For the Purpose of:: To decrease pain, To increase ROM, To improve muscle performance and motor function, To improve ability to perform ADL's, To increase tolerance to activity/condition/position, To improve ability of physical actions for home/community/work/leisure, To improve health of tissue, To decrease soft tissue restriction, To increase flexibility/ROM, To improve endurance, To improve balance, To improve tolerance to ADL's Therapeutic Exercise to Include: Strength training, Endurance training, Balance training, Body mechanics, Postural training, Flexibilty training, In an aquatic setting, Active ROM, Dynamic Lumbar Stabilization Comment: BLE For the Purpose of:: To decrease pain, To increase ROM, To improve muscle performance and motor function, To improve ability to perform ADL's, To increase tolerance to activity/condition/position, To improve ability of physical actions for home/community/work/leisure, To improve health of tissue, To decrease soft tissue restriction, To increase flexibility/ROM, To improve endurance, To improve balance Thank you for the opportunity to evaluate your patient. For Medicare and Medicare HMO plans, please review the plan of care and approve it. It will need to be FAXED BACK to us at [phone] for Medicare purposes. For Medicare only, by signing this I certify the plan of care. Please let me know if there are questions or concerns regarding this plan of care. Physician Signature: Date:
--- NOTE | 2022-10-28 15:57 | HP.PTDCSUM ---
It has been my pleasure to treat RAFIQ ALCANTAR referred by Dr. Devora Asencio MD, with the diagnosis of LEG PAIN for a total of 3 visit(s). Discharge Date: Please see the following information for a summary of their discharge status. Subjective: Patient had to stop PT due to mild seepage in legs no open wounds.. Patient seen DR Clayton may need TKA left . Recommended lymphedema specialist Bilateral Back Pain Intensity (Out of 10): 0 R calf Pain Intensity (Out of 10): 3 % Improvement: 0 Objective/Function: POSTURE: mild forward posture. GAIT: ambulates with cane forward posture 2 point gait. BALANCE: good-. AROM KNEE FLEXION: 0-110 degrees supine flexion ,hip flexion 95 degrees. MMT: quads/hams 4/5 ,(peak force) hip flexion 0 right ,left 6 .1 ,hip abduction bilateral 0 ,ankle 4/5. LUMBAR ROM: flexion mod loss ,extension severe loss Goal 1:: I with Aquatic therapy program Goal Progress: Not Progressing Goal 2:: Patient to demonstrate 40 % improved function and less pain Goal Progress: Not Progressing Goal 3:: Patient to improve peak force of hips by 5 to improve gait and function Goal Progress: Not Progressing Goal 4:: Patient to improve lumbar ROM for ADL's and put on shoes Goal Progress: Not Progressing Goal 5:: Patient to improve LFES score by 5 points or > to improve QOL and function Goal Progress: Not Progressing Plan: D/C at This If there are questions or concerns regarding this patient's physical therapy, please feel free to call me at [phone]. Thank you for the referral of this patient. Sincerely, Pawel Mason, PT, Cert MDT, OCS Balance/Gait/Functional tests - Balance/Special Test Scores Lower Extremity Functional Score: 10
== END 2022-10-28 19:00 | disposition home or self-care (01) ==
LOC: PT 15:30
PROVIDERS: PCP Family Medicine Geriatric Medicine; Referring Provider Anesthesiology Pain Medicine; Visit Provider Anesthesiology Pain Medicine
DX: M54.16 Radiculopathy, lumbar region (principal); M79.606 Pain in leg, unspecified
CPT/HCPCS: 97113; 97162; 97530

== ENCOUNTER → 2022-11-03 | Outpatient (CLI) | payer MEDICARE, OTHER, SELFPAY ==
--- NOTE | 2022-11-03 14:59 | RAD_ITS ---
STUDY: X-RAY - ABDOMEN/PELVIS REASON FOR EXAM: Female, 66 years old. Stones. TECHNIQUE: Two AP supine views of the abdomen and pelvis. COMPARISON: None. FINDINGS: Normal visualized lung bases. There is an unremarkable bowel gas pattern. There is no demonstrated free abdominal air. The visualized liver, spleen and kidneys are grossly normal in size and morphology. There are no visualized renal calculi. No ureteral calcifications. Phleboliths are again seen in the right pelvis. Normal soft tissue structures. Normal visualized osseous structures. RAD/Abdomen Single View IMPRESSION: No evidence of acute intra-abdominal process. There is no evidence of renal or ureteral calculi. Electronically Signed: Dwain Kenyon DO at 16:20 EDT ,
== END | disposition home or self-care (01) ==
LOC: RAD.FUTURE 14:57 → MTRAD 14:58
PROVIDERS: PCP Family Medicine Geriatric Medicine; Referring Provider Urology; Visit Provider Urology
DX: N20.0 Calculus of kidney (principal)
CPT/HCPCS: 74018

== ENCOUNTER → 2023-03-25 | Outpatient (CLI) | payer MEDICARE, OTHER, SELFPAY ==
[2023-03-25 12:22] LABS: Absolute Lymphocyte Count 1.77 X10^3/uL (0.83-4.51); Absolute Neutrophil Count 7.5 X10^3/uL (2.0-7.7); Basophil# 0.06 X10^3/uL; Basophil% 0.6 % (0-1); Eosinophil# 0.25 X10^3/uL; Eosinophils% 2.5 % (0-5); Hematocrit 44.8 % (37-47); Hemoglobin 13.4 g/dL (12.0-15.0); Lymphocyte # 1.77 X10^3/ul (0.83-4.51); Lymphocyte % 17.4 % (19-41); Mean Corp Hgb Conc 29.9 g/dL (32-36); Mean Corpuscular Hgb 29.6 pg (27.0-32.0); Mean Corpuscular Volume 98.9 fL (81-99); Mean Platelet Vol. 9.7 fl (6.2-12.0); Monocyte# 0.56 X10^3/uL; Monocyte% 5.5 % (0-10); NRBC Flagged by Analyzer 0 % (0-5); Neutrophil % 73.7 % (47-70); Platelet Count 480 K/mm3 (150-450); RBC Distribution Width CV 13.9 % (11.6-14.6); RBC Distribution Width SD 50.9 fl (35.1-43.9); Red Blood Count 4.53 M/mm3 (4.2-5.4); White Blood Count 10.2 K/mm3 (4.4-11.0)
[2023-03-25 12:39] LABS: ALB/GLOB Ratio 0.9 RATIO (0.9-2.4); AST(SGOT) 12 U/L (15-37); Alanine Aminotransfer ALT/SGPT 22 U/L (13-56); Albumin, Serum 3.1 g/dL (3.2-5.0); Alkaline Phosphatase 76 U/L (45-117); Anion Gap 2 (5-15); BUN 14 mg/dL (7-18); BUN/Creat Ratio 15.1 RATIO (10-20); Calcium,Total 9.1 mg/dL (8.5-10.1); Chloride 103 mmol/L (98-107); Creatinine, Serum 0.93 mg/dL (0.55-1.02); EST Glomerular Filtration Rate 64 mL/min (>60); Est Glom Filt Rate - Afr Amer 77 mL/min (>60); Globulin 3.5 g/dL (2.2-4.2); Glucose 89 mg/dL (74-106); Potassium 3.9 mmol/L (3.5-5.1); Protein, Total 6.6 g/dL (6.4-8.2); Sodium Level 138 mmol/L (136-145); Thyroid Stim Hormone (TSH) 2.88 uIU/mL (0.358-3.74)
[2023-03-25 12:41] LABS: Vitamin D,25 Hydroxy 74.3 ng/mL
== END | disposition home or self-care (01) ==
LOC: POLAB3 10:54
PROVIDERS: PCP Family Medicine Geriatric Medicine; Visit Provider Family Medicine Geriatric Medicine
DX: R53.83 Other fatigue (principal); E55.9 Vitamin D deficiency, unspecified
CPT/HCPCS: 36415; 80053; 82306; 84443; 85025

== ENCOUNTER 2023-04-30 13:55 | Outpatient (CLI) | payer MEDICARE, OTHER, SELFPAY ==
[2023-04-30 16:23] LABS: Absolute Lymphocyte Count 1.54 X10^3/uL (0.83-4.51); Basophil# 0.07 X10^3/uL; Basophil% 0.8 % (0-1); Eosinophils% 2.2 % (0-5); Hematocrit 41.5 % (37-47); Hemoglobin 12.7 g/dL (12.0-15.0); Lymphocyte # 1.54 X10^3/ul (0.83-4.51); Lymphocyte % 16.6 % (19-41); Mean Corp Hgb Conc 30.6 g/dL (32-36); Mean Corpuscular Hgb 29.7 pg (27.0-32.0); Mean Corpuscular Volume 97.2 fL (81-99); Mean Platelet Vol. 9.7 fl (6.2-12.0); Monocyte# 0.46 X10^3/uL; NRBC Flagged by Analyzer 0 % (0-5); Neutrophil # 6.95 X10^3/uL (2.7-7.7); Platelet Count 461 K/mm3 (150-450); RBC Distribution Width CV 13.7 % (11.6-14.6); RBC Distribution Width SD 48.9 fl (35.1-43.9); Red Blood Count 4.27 M/mm3 (4.2-5.4); White Blood Count 9.3 K/mm3 (4.4-11.0)
[2023-04-30 16:34] LABS: Erythrocyte Sedimentation Rate 20 mm/hr (0-30)
[2023-04-30 16:44] LABS: Prothrombin Time (Protime)PT. 22.6 SECONDS (11.7-14.9)
[2023-04-30 16:59] LABS: ALB/GLOB Ratio 0.9 RATIO (0.9-2.4); AST(SGOT) 15 U/L (15-37); Alanine Aminotransfer ALT/SGPT 15 U/L (13-56); Albumin, Serum 3.2 g/dL (3.2-5.0); Alkaline Phosphatase 86 U/L (45-117); Anion Gap 5 (5-15); BUN 16 mg/dL (7-18); CRP 8.29 mg/L (0.0-3.0); Chloride 102 mmol/L (98-107); Cholesterol 200 mg/dL (200); EST Glomerular Filtration Rate 75 mL/min (>60); Est Glom Filt Rate - Afr Amer 91 mL/min (>60); Ferritin 14 ng/mL (8-252); Free T3 1.8 pg/mL (2.18-3.98); Globulin 3.6 g/dL (2.2-4.2); Glucose 84 mg/dL (74-106); High Density Lipoprotein 68 mg/dL; Iron Binding Capacity,Total 389 ug/dL (250-450); LDH 188 U/L (84-246); Potassium 3.8 mmol/L (3.5-5.1); Protein, Total 6.8 g/dL (6.4-8.2); Sodium Level 137 mmol/L (136-145); T4 Free Direct 1.62 ng/dL (0.76-1.46); Thyroid Stim Hormone (TSH) 1.48 uIU/mL (0.358-3.74); Triglycerides 185 mg/dL; Very Low Density Lipoprotein 37 mg/dL (5-40)
[2023-04-30 17:18] LABS: HIV - WCH Non-Reactive (Nonreactive)
[2023-04-30 18:06] LABS: Hemoglobin A1c 5.3 % (3.8-5.6)
[2023-05-06 05:07] LABS: Anti-Centromere B Ab <0.2 AI (0.0-0.9); Anti-Chromatin <0.2 AI (0.0-0.9); Anti-Jo <0.2 AI (0.0-0.9); Anti-Mitochondrial AB <20.0 Units (0.0-20.0); Anti-Scleroderma-70 AB <0.2 AI (0.0-0.9); Anti-dsDNA Ab <1 IU/mL (0-9); Beef <0.10 kU/L (Class 0); Chocolate <0.10 kU/L (Class 0); Codfish <0.10 kU/L (Class 0); Corn <0.10 kU/L (Class 0); Egg, Whole <0.10 kU/L (Class 0); Milk (Cow) <0.10 kU/L (Class 0); Mussels <0.10 kU/L (Class 0); Peanut <0.10 kU/L (Class 0); Pork <0.10 kU/L (Class 0); RNP Ab 0.3 AI (0.0-0.9); SJOGREN'S Anti-SS-A test 0.2 AI (0.0-0.9); SJOGREN'S Anti-SS-B test < 0.2 AI (0.0-0.9); Salmon <0.10 kU/L (Class 0); Shrimp <0.10 kU/L (Class 0); Smith Ab <0.2 AI (0.0-0.9); Soybean <0.10 kU/L (Class 0); Tuna <0.10 kU/L (Class 0); Wheat <0.10 kU/L (Class 0)
[2023-05-11 16:09] LABS: AFP, Tumor Marker < 1.8 ng/mL (0.0-9.2); Angiotensin Convert Enzyme 42 U/L (14-82); Anti-Smooth Muscle ABS 4 Units (0-19); Ceruloplasmin 24.8 mg/dL (19.0-39.0); Copper, Serum or Plasma 128 ug/dL (80-158); Cytoplasmic Ab (C-ANCA) <1:20 titer (Neg:<1:20); Endomysial Antibody IgA Negative (Negative); HEPATITIS B SURFACE AG Negative (Negative); Haptoglobin 145 mg/dL (37-355); Hep C Antibodies Non Reactive (Non Reactive); Hepatitis A IgM Antibody Negative (Negative); Hepatitis B Core AB IgM Negative (Negative); Immunoglobulin A 566 mg/dL (87-352); Immunoglobulin E < 2 IU/mL (6-495); Immunoglobulin G 884 mg/dL (586-1602); Immunoglobulin M 34 mg/dL (26-217); Perinuclear Ab (P-ANCA) <1:20 titer (Neg:<1:20); Transferrin 333 mg/dL (192-364); t-Transglutaminase IgA <2 U/mL (0-3)
== END 2023-04-30 23:59 | disposition home or self-care (01) ==
LOC: LAB 13:56
PROVIDERS: PCP Family Medicine Geriatric Medicine; Referring Provider Internal Medicine Gastroenterology; Visit Provider Internal Medicine Gastroenterology
DX: K74.60 Unspecified cirrhosis of liver (principal); K50.90 Crohn's disease, unspecified, without complications; N25.81 Secondary hyperparathyroidism of renal origin; R63.4 Abnormal weight loss
CPT/HCPCS: 36415; 80053; 80061; 80074; 82105; 82140; 82164; 82390; 82525; 82728; 82784; 82785; 83010; 83036; 83516; 83550; 83615; 84439; 84443; 84466; 84481; 85025; 85610; 85652; 86003; 86005; 86140; 86225; 86235; 86255; 86256; 86703

== ENCOUNTER → 2023-06-22 | Outpatient (CLI) | payer MEDICARE, OTHER, SELFPAY ==
--- NOTE | 2023-06-22 10:01 | US_ITS ---
STUDY: ABDOMINAL ULTRASOUND - RIGHT UPPER QUADRANT; ELASTOGRAPHY REASON FOR VISIT: Female, 67 years old. Gallstones. TECHNIQUE: Ultrasound evaluation of the right upper quadrant was performed with real-time and static sun-scale imaging. Point quantification shear wave elastography was performed ([employer]). TECHNICAL QUALITY: Adequate. COMPARISON: Comparison is made with prior study dated December 06, 2019. FINDINGS: Liver: The liver is mildly enlarged and measures 17.3 cm. There is increased echogenicity consistent with fatty infiltration. The bile ducts are within normal limits. There is hepatic color flow. The direction of portal flow is hepatopetal. There is no demonstrated mass lesion. Median liver stiffness measured 6.3 kPa. Gallbladder: Normal distended gallbladder. The gallbladder wall measures 2.5 mm. There is a negative sonographic Bishop''s sign. There is no pericholecystic fluid. There is a solitary echogenic gallstone within the gallbladder. This measures 3.3 cm x 3.2 cm x 2.1 cm. Common Bile Duct (C.B.D.): The common bile duct measures 4.7 mm. Pancreas: The pancreas was not well visualized due to overlying bowel gas. Right Kidney: Normal size of the right kidney. The right kidney measures 10.2 cm x 5 cm x 4.3 cm. Normal renal cortex. The right cortex measures 1.0 cm. There is no demonstrated renal mass or cyst. There is no right hydronephrosis. US/ABD Limited w/ Elastography IMPRESSION: 1. Liver stiffness measures 6.3 kPa compatible with F2-F3 (Mild to moderate liver fibrosis) Metavir score. 2. Mild hepatomegaly and fatty infiltration of the liver. 3. Solitary gallstone. Electronically Signed: Raul Padilla MD at 14:44 EST ,
== END | disposition home or self-care (01) ==
LOC: US 09:55
PROVIDERS: PCP Family Medicine Geriatric Medicine; Referring Provider Internal Medicine Gastroenterology; Visit Provider Internal Medicine Gastroenterology
DX: K74.60 Unspecified cirrhosis of liver (principal); K50.90 Crohn's disease, unspecified, without complications; R63.4 Abnormal weight loss
CPT/HCPCS: 76705; 76981

== ENCOUNTER → 2023-09-23 | Outpatient (CLI) | payer MEDICARE, OTHER, SELFPAY ==
[2023-09-23 12:00] LABS: Absolute Lymphocyte Count 2.63 X10^3/uL (0.83-4.51); Absolute Neutrophil Count 5.1 X10^3/uL (2.0-7.7); Basophil# 0.08 X10^3/uL; Basophil% 0.9 % (0-1); Eosinophil# 0.21 X10^3/uL; Eosinophils% 2.4 % (0-5); Hematocrit 41.7 % (37-47); Hemoglobin 12.6 g/dL (12.0-15.0); Lymphocyte # 2.63 X10^3/ul (0.83-4.51); Lymphocyte % 30.1 % (19-41); Mean Corp Hgb Conc 30.2 g/dL (32-36); Mean Corpuscular Hgb 29.4 pg (27.0-32.0); Mean Corpuscular Volume 97.2 fL (81-99); Mean Platelet Vol. 9.4 fl (6.2-12.0); Monocyte# 0.65 X10^3/uL; Monocyte% 7.4 % (0-10); NRBC Flagged by Analyzer 0 % (0-5); Neutrophil # 5.12 X10^3/uL (2.7-7.7); Neutrophil % 58.7 % (47-70); Platelet Count 455 K/mm3 (150-450); RBC Distribution Width CV 13.3 % (11.6-14.6); RBC Distribution Width SD 47.7 fl (35.1-43.9); Red Blood Count 4.29 M/mm3 (4.2-5.4); White Blood Count 8.7 K/mm3 (4.4-11.0)
[2023-09-23 12:16] LABS: Vitamin D,25 Hydroxy 30.6 ng/mL
[2023-09-23 12:28] LABS: ALB/GLOB Ratio 0.9 RATIO (0.9-2.4); AST(SGOT) 16 U/L (15-37); Alanine Aminotransfer ALT/SGPT 17 U/L (13-56); Albumin, Serum 3.1 g/dL (3.2-5.0); Alkaline Phosphatase 52 U/L (45-117); Anion Gap 4 (5-15); BUN 18 mg/dL (7-18); BUN/Creat Ratio 18.7 RATIO (10-20); Calcium,Total 8.6 mg/dL (8.5-10.1); Chloride 99 mmol/L (98-107); Creatinine, Serum 0.96 mg/dL (0.55-1.02); EST Glomerular Filtration Rate 61 mL/min (>60); Est Glom Filt Rate - Afr Amer 74 mL/min (>60); Globulin 3.5 g/dL (2.2-4.2); Glucose 85 mg/dL (74-106); Potassium 4.1 mmol/L (3.5-5.1); Protein, Total 6.6 g/dL (6.4-8.2); Sodium Level 134 mmol/L (136-145); Thyroid Stim Hormone (TSH) 2.17 uIU/mL (0.358-3.74)
== END | disposition home or self-care (01) ==
LOC: POLAB3 09:59
PROVIDERS: PCP Family Medicine Geriatric Medicine; Visit Provider Family Medicine Geriatric Medicine
DX: R53.83 Other fatigue (principal); E55.9 Vitamin D deficiency, unspecified
CPT/HCPCS: 36415; 80053; 82306; 84443; 85025

== ENCOUNTER 2023-10-18 12:49 | Inpatient (IN) | payer MEDICARE, OTHER, SELFPAY ==
[2023-10-18] VITALS (8 sets, daily range): BP systolic 106–142; BP diastolic 56–78; PULSE 84–99; RESP 16–28; TEMP 36.6–36.9; O2SAT 86–94; BMI 41.8; BMI 40.4
[2023-10-18 13:16] LABS: Absolute Lymphocyte Count 1.24 X10^3/uL (0.83-4.51); Absolute Neutrophil Count 20.8 X10^3/uL (2.0-7.7); Basophil# 0.09 X10^3/uL; Basophil% 0.4 % (0-1); Eosinophil# 0.01 X10^3/uL; Hematocrit 44.2 % (37-47); Hemoglobin 13.5 g/dL (12.0-15.0); Lymphocyte # 1.24 X10^3/ul (0.83-4.51); Lymphocyte % 5.3 % (19-41); Mean Corp Hgb Conc 30.5 g/dL (32-36); Mean Corpuscular Hgb 29.2 pg (27.0-32.0); Mean Corpuscular Volume 95.7 fL (81-99); Mean Platelet Vol. 9.4 fl (6.2-12.0); Monocyte# 1.12 X10^3/uL; Monocyte% 4.8 % (0-10); NRBC Flagged by Analyzer 0 % (0-5); Neutrophil # 20.75 X10^3/uL (2.7-7.7); Neutrophil % 88.6 % (47-70); POSITIVE DIFFERENTIAL YES; Platelet Count 482 K/mm3 (150-450); RBC Distribution Width CV 13.6 % (11.6-14.6); Red Blood Count 4.62 M/mm3 (4.2-5.4); White Blood Count 23.4 K/mm3 (4.4-11.0)
[2023-10-18 13:21] LABS: Mucous, Urine 0 SEEN /hpf (<or=2+); Red Blood Cells-Urine 0 SEEN /hpf (0-5)
[2023-10-18 13:25] LABS: AST(SGOT) 13 U/L (15-37); Alanine Aminotransfer ALT/SGPT 15 U/L (13-56); Albumin, Serum 3.1 g/dL (3.2-5.0); Alkaline Phosphatase 65 U/L (45-117); Anion Gap 8 (5-15); BUN 19 mg/dL (7-18); BUN/Creat Ratio 19.8 RATIO (10-20); Bilirubin, Direct 0.75 mg/dL (0.00-0.30); Calcium,Total 9.1 mg/dL (8.5-10.1); Chloride 92 mmol/L (98-107); Creatinine, Serum 0.96 mg/dL (0.55-1.02); EST Glomerular Filtration Rate 61 mL/min (>60); Est Glom Filt Rate - Afr Amer 74 mL/min (>60); Glucose 116 mg/dL (74-106); Lipase 22 U/L (13-75); Potassium 4.2 mmol/L (3.5-5.1); Protein, Total 7.1 g/dL (6.4-8.2); Sodium Level 132 mmol/L (136-145)
[2023-10-18 13:26] LABS: Differential Indicated SCAN CRITERIA MET
[2023-10-18 13:26] LABS: Glucose, Dipstick Normal (Normal); Ketone-Dipstick Negative (Negative); Leukocyte Esterase-Dipstick 100 /ul (Negative); Nitrite-Dipstick Positive (Negative); Occult Blood-Urine 10 /ul (Negative); Protein-Dipstick 30 mg/dl (Negative); Specific Gravity, Urine 1.015 (1.002-1.030); Urine Clarity Clear (Clear); Urine Urobilinogen 12 mg/dl (Normal); Urine pH 6.5 (5.0 - 8.0)
[2023-10-18 13:31] LABS: Color, Urine SEE COMMENT BELOW (Yellow); Urine Bilirubin Dipstick 6 mg/dL (Negative)
--- NOTE | 2023-10-18 13:38 | CT_ITS ---
STUDY: CT Abdomen And Pelvis W/ Contrast Injection 10/18/2023 2:03 PM REASON FOR EXAM: Female, 67 years old. Abdominal pain llq abdominal pain Individualized dose optimization techniques were used for this CT. COMPARISON: 04.29.21. TECHNIQUE: CT Abdomen And Pelvis W/ Contrast Injection IV 100mL [id number] FINDINGS: There are atherosclerotic calcifications of visualized coronary arteries. Stable subcentimeter nodularities in the lower lobes may represent pneumonia. Normal liver. There are multiple gallstones. Normal spleen. Dilated duct of the pancreas. Normal bilateral adrenal glands. No acute findings of the right kidney. Non obstructive 2 mm left renal parenchymal stones. Normal visualized stomach. Normal small intestine. Right hemicolectomy changes. There is non-visualization of the appendix. There are calcifications of the abdominal aorta. This is consistent for atherosclerotic disease. There is NO abdominal aortic aneurysm. Vascular workup can be obtained based on clinical correlation. Normal inferior vena cava. Subcentimeter mesenteric lymph nodes. Diffuse inflammation around the left external iliac vein. This can suggest thrombophlebitis. Normal urinary bladder. There is absence of the uterus consistent with a prior hysterectomy. Normal abdominal wall. There are diffuse degenerative changes of the visualized lumbar spine. Stable compression deformity of L1, L2, and L3. CT/Abdomen/Pelvis W IV Cont ONLY IMPRESSION: (NOT LISTED IN ORDER OF SIGNIFICANCE) Diffuse inflammation around the left external iliac vein. This can suggest thrombophlebitis. Venous duplex can further evaluate. Stable subcentimeter nodularities in the lower lobes may represent pneumonia. CT chest can better evaluate. There are multiple gallstones. Non obstructive 2 mm left renal parenchymal stones. Other findings as above. Electronically Signed: Allen Purvis MD at 14:09 EDT ,
[2023-10-18 13:45] LABS: Bacteria 1+ /hpf (None Seen); Squamous Epithelial Cells - UA 0-5 SEEN /hpf (5-10); White Blood Cells 5-10 SEEN /hpf (0-5)
[2023-10-18 14:00] LABS: Differential Comment SCANNED
--- NOTE | 2023-10-18 15:05 | VDLE_ITS ---
Reason For Study: pain RIGHT LEFT GSV is normal. GSV is normal. CFV is compressible, spontaneous, phasic, CFV is compressible, spontaneous, phasic, competent and demonstrates normal competent, and demonstrates normal augmentation. augmentation. FV is compressible, spontaneous, phasic, FV is compressible, spontaneous, phasic, competent and demonstrates normal competent and demonstrates normal augmentation. augmentation. POP V is compressible, spontaneous, phasic, POP V is compressible, spontaneous, phasic, competent and demonstrates normal competent and demonstrates normal augmentation. augmentation. T/P Trunk is compressible. T/P Trunk is compressible. PTV is compressible. PTV is compressible. RT PerV is compressible. LT PerV is compressible. Procedure This is a venous duplex using B-mode, color flow and spectral Doppler. Exam performed portable in patient room. The exam was diagnostic. Limited veiws of calf veins due to pt body habitus. A preliminary report was called and/or faxed to [place] [facility]. VL/Venous Duplex US - Dilan Extrem Interpretation Summary Deep veins of the bilateral lower extremities are patent and compressible segme ntally. There is no evidence of bilateral lower extremity deep vein thrombosis. The bilateral great saphenous veins appear patent and compressible segmentally. Ordering Physician: Joya Clemente Performed By: Sherwin Tabor RVT
[2023-10-18 15:06] LABS: International Normalized Ratio 1.8; Prothrombin Time (Protime)PT. 21.2 SECONDS (11.7-14.9)
--- NOTE | 2023-10-18 15:06 | HP.PCM.HOS_ITS ---
HPI - General General Date of Admission: 10/18/23 Date of Service: 10/18/23 Chief Complaint: Dysuria/lower abdominal pain HPI Narrative RAFIQ ALCANTAR, is a 67 F who presented to the emergency department at [facility] on 10/18/2023 complaining of dysuria and lower abdominal pain as well as lower extremity edema. Patient reported her symptoms had been ongoing for a couple of days and she initially thought she had just waited too long. She does have a history of nephrolithiasis and was concerned that some flank pain she was experiencing was related to this plus a urinary tract infection. She also reported she has a history of Crohn's disease and has required resections previously. She denies any fever and indicated she has bilateral lower extremity edema that is stable however her left lower extremity became acutely painful and more erythematous this morning. She denies ever having previous cellulitis but has chronic lymphedema in the lower third of her legs. She states her left lower extremity is a lot more red than her right and much more erythematous than her baseline as well as warm to touch and significantly painful. She does take Xarelto at baseline and has not missed any doses. She denies any known new trauma to this leg, however on evaluation she has significant excoriations of bilateral legs but seems to be more significant on the left on the right. Vital signs on presentation showed a temperature of 97.8, heart rate 89, respiratory rate 19, blood pressure was 141/62 and pulse ox was 93% on room air. CBC shows marked leukocytosis with a white count of 23.4 and a left shift at 88.6%. She had a thrombocytosis but upon review of the chart it appears this is chronic and no worse than baseline. Coags were elevated as expected with Xarelto use. Her chemistry panel showed mild hyponatremia, normal renal function with mild hyperglycemia having a glucose of 116 and significantly elevated bilirubin higher than her baseline of 1.3-1.7 at 4.30. Her lipase was 22. Her UA is suggestive of infection having positive nitrates, leuk esterase, white cells and bacteria. CT of the abdomen pelvis was done and showed diffuse inflammation around the left external iliac vein that can suggest thrombophlebitis this a stable subcentimeter nodularities in the lower lobes of the lungs, multiple gallstones and a nonobstructive 2 mm left renal parenchymal stone. Given her UA suspicious for urinary tract infection urine culture was sent and blood cultures were also sent given her lower extremity cellulitis. It was felt she needed to be admitted. Also with regards to her questionable thrombophlebitis a left lower extremity duplex was recommended by vascular surgery as well as transition from Xarelto to low molecular weight heparin. Vascular surgery indicated they would see the patient consult. [facility] Medical History Thrombocytosis Lymphedema Shakiness Fatigue Mild cognitive impairment Secondary hyperparathyroidism Secondary adrenal insufficiency Cellulitis of leg Hyponatremia Hyperparathyroidism Sacroiliitis Weight loss Unintentional weight loss Screening for colon cancer Left ureteral calculus Paroxysmal atrial fibrillation Essential hypertension Skin lesion Chronic pain Former smoker CPAP (continuous positive airway pressure) dependence Sleep apnea A-fib New onset a-fib History of echocardiogram Chronic bronchitis History of blood transfusion Pulmonary HTN Bone fracture Vitamin deficiency Skin cancer PNE Back problem Osteoporosis Osteopenia OA (osteoarthritis) Arthritis Gastrointestinal distress Gallstones COPD (chronic obstructive pulmonary disease) Anemia Seasonal allergies Pancreatic divisum Fibromyalgia Immunodeficiency disorder, selective immunoglobulin Asthma Crohns disease HTN (hypertension) GERD (gastroesophageal reflux disease) SARAHY (obstructive sleep apnea) Hypertension Home Medications ?Medication ?Instructions ?Recorded ?Last Taken ?Type pantoprazole 40 mg tablet,delayed 40 mg PO DAILY PRN Acid Reflux 05/29/20 10/18/23 History release diphenoxylate-atropine 2.5 5 tab PO DAILY Diarrhea/Loose 09/06/20 10/18/23 History mg-0.025 mg tablet Stools levothyroxine 50 mcg tablet 50 mcg PO DAILY thyroid 12/09/21 10/18/23 History ammonium lactate 12 % topical cream 1 applic topical BID dry legs 05/12/22 10/18/23 History sildenafil (pulm.hypertension) 20 20 mg PO TID Pulmonary HTN 05/12/22 Unknown History mg tablet budesonide-formoterol HFA 160 2 puff inhalation BID 09/24/22 10/18/23 History mcg-4.5 mcg/actuation aerosol inhaler (Symbicort) lidocaine 5 % topical patch 1 patch topical DAILY 09/24/22 10/18/23 History metronidazole 0.75 % (37.5 mg/5 1 appful vaginal DAILY PRN vaginal 09/24/22 Unknown History gram) vaginal gel irritation Prolia 60 mg/mL subcutaneous 60 mg subcut [id number] #1 mL 12/22/22 Unknown Rx syringe (denosumab) prednisone 2.5 mg tablet See Rx Instructions PO BID #270 05/22/23 10/18/23 Rx tabs valsartan 80 1 tab PO DAILY BP #90 tabs 05/29/23 Unknown Rx mg-hydrochlorothiazide 12.5 mg tablet rivaroxaban 20 mg tablet (Xarelto) 20 mg PO DAILY Please change 06/09/23 Unknown Rx quantity to 30 days #30 tabs amiodarone 100 mg tablet 100 mg PO DAILY heart #90 tabs 08/24/23 10/18/23 Rx digoxin 125 mcg (0.125 mg) tablet 125 mcg PO DAILY heart #90 tabs 08/24/23 10/18/23 Rx morphine 15 mg tablet,extended 15 mg PO TID PAIN 10/09/23 10/18/23 History release rifaximin 550 mg tablet (Xifaxan) 550 mg PO BID #60 tabs 10/09/23 Unknown Rx IVIG INFUSION 10/18/23 Unknown History cholecalciferol (vitamin D3) 1,250 1,250 mcg PO TUFR 10/18/23 10/16/23 History mcg (50,000 unit) capsule loratadine 10 mg tablet (Allergy 10 mg PO DAILY PRN allergy symptoms 10/18/23 Unknown History Relief (loratadine)) montelukast 10 mg tablet 10 mg PO DAILY 10/18/23 10/18/23 History Allergy/AdvReac Type Severity Reaction Status Date / Time codeine Allergy Severe ANGIOEDEMA/LEG Verified 10/18/23 12:54 SWELLING Penicillins Allergy Severe ANGIOEDEMA/LEG Verified 10/18/23 12:54 SWELLING Sulfa (Sulfonamide Allergy Severe ANGIOEDEMA/LEG Verified 10/18/23 12:54 Antibiotics) SWELLING sulfasalazine (From Allergy Severe ANGIOEDEMA/LEG Verified 10/18/23 12:54 Azulfidine) SWELLING Family History Father Anemia Heart disease Hypertension CVA (cerebral vascular accident) Mother Arthritis Cancer Osteoporosis Sister Arthritis Lung disease Surgical History History of kyphoplasty (~07/07/16) Leg fracture, right History of left knee replacement History of tonsillectomy History of total hysterectomy with bilateral salpingo-oophorectomy (BSO) History of pneumonectomy History of resection of small bowel History of right heart catheterization (RHC) (~05/09/16) Social History Smoking Status: Former smoker how long ago did patient quit smokin second hand exposure: No alcohol intake: current alcohol intake frequency: other substance use type: does not use caffeine: Yes Type: carbonated beverages, coffee and tea what type of physical activity do you participate in: none seatbelt use: always 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 Constitutional Constitutional: Reports chills, fatigue, malaise and weakness; Denies anorexia, change in weight, fever(s), night sweats or other Eyes Eyes: Denies blurry vision, change in eye color, change in vision, discharge from eye(s), double vision, erythema, eye pain, loss of vision or other ENT HEENT: Denies abnormal hearing, dysphagia, ear pain, epistaxis, headache(s), hearing loss, nasal congestion, nasal discharge, post nasal drip, sinus pressure, sore throat or other Cardiovascular Cardiovascular: Denies chest pain, claudication, dyspnea on exertion, edema, lightheadedness, orthopnea, palpitations, paroxysmal nocturnal dyspnea, rapid heart rate, syncope or other Respiratory/Chest Respiratory/Chest: Denies cough, dyspnea, excessive phlegm production, hemoptysis, productive cough, shortness of breath at rest, shortness of breath with exertion, wheezing or other Gastrointestinal Gastrointestinal: Reports nausea; Denies abdominal pain, coffee ground emesis, constipation, diarrhea, dyspepsia, hematemesis, hematochezia, loose stools, melena, vomiting or other Genitourinary Genitourinary: Reports burning urination and urinary frequency; Denies difficulty urinating, dysuria, hematuria, nocturia, urinary hesitancy, urinary incontinence, urinary urgency or other Musculoskeletal Musculoskeletal: Reports other Details: Left lower extremity pain ; Denies arthralgias, back pain, joint pain, joint stiffness, joint swelling, myalgias or neck pain Neurologic Neurologic: Denies abnormal gait, abnormal speech, confusion, disequilibrium, dizziness, focal weakness, headache(s), numbness, paresthesias, seizure-like activity, seizures, syncope, tingling, tremor(s) or other Psychiatric Psychiatric: Denies anxiety, depression, homicidal ideation, suicidal ideation or other Endocrine Endocrinology: Denies change in body appearance, cold intolerance, excessive sweating, heat intolerance, polydipsia, polyuria or other Hematologic/Lymphatic Hematologic/Lymphatic: Reports other Details: Chronic bilateral lower extremity lymphedema Allergic/Immunologic Allergic/Immunologic: Denies rhinitis, hives, eczemia, asthma or other Vital Signs Vital Signs Vital Signs: 10/18/23 12:50 Temperature 97.8 F Temperature Source Oral Pulse Rate 89 Respiratory Rate 19 H Blood Pressure 141/62 H Blood Pressure Mean 88 Pulse Ox 93 Oxygen Delivery Method Room Air Physical Exam Const alert, oriented x3, no apparent distress and well nourished; Negative for average body habitus or healthy appearing Constitutional Narrative: Morbidly obese, white female, sitting up in bed, appears comfortable, appears like she is ill but not toxic General Appearance: cooperative HEENT normocephalic, hearing grossly normal bilaterally and moist oral mucous membranes HEENT Narrative: Mallampati 2, no thrush Eyes PERRL, EOMs intact bilaterally and conjunctivae normal Eyes Narrative: No scleral icterus Neck no lymphadenopathy and supple Neck Narrative: Trachea midline, no noted thyroid enlargement Resp normal respiratory effort, no retractions, no use of accessory muscles and clear to auscultation bilaterally Auscultation: Negative for rales, rhonchi or wheezes Cardio regular rate, regular rhythm, S1 normal heart sound, S2 normal heart sound, no murmurs, no rub, no gallops and no clicks GI normal to inspection, nondistended, normoactive bowel sounds and soft to palpation GI Narrative: Mild tenderness at very distal left lower quadrant Extremity Extremity Narrative: Marked bilateral lower extremity lymphedema that appears to be chronic, no cyanosis or clubbing Skin Skin Narrative: Significant excoriations on bilateral lower extremities that appear to be superficial left greater than right, left lower extremity is significantly erythematous to just below the knee from the foot as well as demonstrates increased tone to temperature and may be slightly more swollen than the right Neuro oriented x3, CN's II-XII intact bilaterally, moves all extremities and no focal motor deficits Neuro Narrative: Generalized weakness noted but no focal deficits Speech: speech normal Psych affect normal Psych Narrative: Very pleasant, interacts appropriately Results Lab / Micro Data 10/18/23 12:30 05/26/24 12:30 Labs: Laboratory Results - last 24 hr 10/18/23 12:30: WBC 23.4 H, RBC 4.62, Hgb 13.5, Hct 44.2, MCV 95.7, MCH 29.2, M CHC 30.5 L, RDW Std Deviation 48.0 H, RDW Coeff of Curtis 13.6, Plt Count 482 H, MPV 9.4, Immature Gran % (Auto) 0.900, Neut % (Auto) 88.6 H, Lymph % (Auto) 5.3 L, Quay % (Auto) 4.8, Eos % (Auto) 0.0, Baso % (Auto) 0.4, Absolute Neuts (auto) 20.8 H, Absolute Lymphs (auto) 1.24, Nucleated RBC % 0, Differential Comment SCANNED, Sodium 132 L, Potassium 4.2, Chloride 92 L, Carbon Dioxide 32.0, Anion Gap 8, BUN 19 H, Creatinine 0.96, Est GFR (MDRD) Af Amer 74, Est GFR (MDRD) Non- Af 61, BUN/Creatinine Ratio 19.8, Glucose 116 H, Calcium 9.1, Total Bilirubin 4.30 H, Direct Bilirubin 0.75 H, AST 13 L, ALT 15, Alkaline Phosphatase 65, Total Protein 7.1, Albumin 3.1 L, Globulin 4.0, Lipase 22 10/18/23 13:15: Urine Color SEE COMMENT BELOW, Urine Clarity Clear, Urine pH 6.5, Ur Specific [place] 1.015, Urine Protein 30 H, Urine Glucose (UA) Normal, Urine Ketones Negative, Urine Occult Blood 10 H, Urine Nitrite Positive H, Urine Bilirubin 6 H, Urine Urobilinogen 12 H, Ur Leukocyte Esterase 100 H, Urine RBC 0 SEEN, Urine WBC 5-10 SEEN, Ur Squamous Epith Cells 0-5 SEEN, Urine Bacteria 1+, Urine Mucus 0 SEEN Imaging Radiology Impression Abdomen/Pelvis CT 10/18/23 13:38 IMPRESSION: (NOT LISTED IN ORDER OF SIGNIFICANCE) Diffuse inflammation around the left external iliac vein. This can suggest thrombophlebitis. Venous duplex can further evaluate. Stable subcentimeter nodularities in the lower lobes may represent pneumonia. CT chest can better evaluate. There are multiple gallstones. Non obstructive 2 mm left renal parenchymal stones. Other findings as above. Electronically Signed: Allen Purvis MD at 14:09 EDT , Assessment & Plan Assessment/Plan (1) Cellulitis: (2) Abnormal CT of the abdomen: (3) UTI (urinary tract infection): (4) Leukocytosis: (5) Hyponatremia: (6) Hyperbilirubinemia: PLAN: Plan Left lower extremity cellulitis -Likely related to superficial skin infection from multiple excoriations complicated by her lymphedema -Culture if able although no marked wounds noted -Elevate lower extremity -Cultures have been obtained -Patient with multiple antibiotic allergies so we will utilize Levaquin to ensure we cover Pseudomonas as well as vancomycin -Check MRSA PCR -Will likely need to go home on dual antibiotic therapy to cover MRSA as well as Pseudomonas given past medical history Abnormal UA with suspected UTI -Patient was symptomatic -UA was suggestive of infection -Urine cultures pending -Continue Levaquin and vancomycin as noted above Hyperbilirubinemia-acute on chronic -Baseline bilirubin level appears to be between 1.3 and 1.7 -Patient follows with GI as an outpatient -Acute elevation may be related to acute infection as noted above -Continue to monitor and repeat lab in a.m. -Patient does have known liver cirrhosis -If continues to trend up may need further assistance from gastroenterology -Patient follows with Dr. Redman as an outpatient Liver cirrhosis -Follows with Dr. Redman -Future plan is for possible liver biopsy -Biochemical workup is pending -Current MELD is 7 -No signs of decompensated liver disease currently -Continue home rifaximin Hyponatremia -Mild -Likely related to the above -Will follow Abnormal CT of the abdomen -CT was suggestive of inflammation around the left iliac vein with concern for thrombophlebitis -CT was done for left lower abdomen pain -Patient is fully anticoagulated at baseline with Xarelto however could be related to Xarelto failure -Check left lower extremity Doppler -Lovenox 115 kg twice daily for now until we can rule out new thrombus -Vascular surgery was consulted Generalized weakness secondary to chronic comorbidities and decreased activity -PT/OT consultation History of atrial fibrillation -Continue home amiodarone -Continue home digoxin -Rivaroxaban currently on hold -Full dose Lovenox for the above Obstructive sleep apnea -Patient is not compliant with CPAP at home -Monitor for supplemental oxygen needs Chronic thrombocytosis -Platelet count is currently at baseline -Will continue to monitor Hypothyroidism -Continue home levothyroxine Pulmonary hypertension -Continue home sildenafil 20 mg 3 times daily History of nephrolithiasis -No obstructing stones noted at this time Osteoporosis -Patient is on outpatient Prolia -Continue home vitamin D and calcium supplementation Crohn's disease -Continue home prednisone--> weaning as she has previously been steroid refractory -History of multiple bowel resections -Per most recent recommendations from Dr. Redman will need MR enterography -No significant gut abnormality found on current CT of the abdomen and pelvis -Start budesonide 9 mg daily per recent GI instructions COPD -Continue inhalers -As needed aerosols Chronic pain -Continue home morphine DVT prophylaxis -Therapeutic Lovenox as noted above CODE STATUS -Full code Sepsis Attestation Sepsis Alert: Yes Sepsis Attestation: Sepsis Ruled Out Date exam was performed: 10/18/23 Time exam was performed: 15:00 Supportive Findings: Pt only has 1 SIRS criteria Charges/Coding Visit Charges Inpatient E&M: 81047 Init Hosp L3
[2023-10-18 15:25] LABS: Lactic Acid 1.2 mmol/L (0.4-1.9)
[2023-10-18 15:48] LABS: Partial Thromboplast Time 32.8 Seconds (24.1-36.2)
[2023-10-18] MEDS: levoFLOXacin IV 500 MG/100 ML BAG 100 MG IV (15:57)
--- NOTE | 2023-10-18 16:02 | EDS_ITS ---
HPI HPI - GI History of Present Illness Chief Complaint: Flank Pain Narrative Narrative: 67-year-old female presenting with initially symptoms of UTI and she states she has had urinary frequency and dysuria going on for couple days and she thought initially she had waited too long. She recalls that she has a history of kidney stones and is concerned she might have this however she has not had any sharp pains in the flank she notes she is having progressively worse left lower quadrant abdominal pain without any GI symptoms. She has a history of Crohn's disease in the past as well as resections. Patient has not had a fever. Patient does note that she has chronic bilateral lower extremity lymphedema but states that her left leg is more painful currently and red. She states this is been worse on the same timeframe. Patient states that she is on Xarelto and has not missed any doses. Patient denies any leg trauma. [facility] Medical History Thrombocytosis Lymphedema Shakiness Fatigue Mild cognitive impairment Secondary hyperparathyroidism Secondary adrenal insufficiency Cellulitis of leg Hyponatremia Hyperparathyroidism Sacroiliitis Weight loss Unintentional weight loss Screening for colon cancer Left ureteral calculus Paroxysmal atrial fibrillation Essential hypertension Skin lesion Chronic pain Former smoker CPAP (continuous positive airway pressure) dependence Sleep apnea A-fib New onset a-fib History of echocardiogram Chronic bronchitis History of blood transfusion Pulmonary HTN Bone fracture Vitamin deficiency Skin cancer PNE Back problem Osteoporosis Osteopenia OA (osteoarthritis) Arthritis Gastrointestinal distress Gallstones COPD (chronic obstructive pulmonary disease) Anemia Seasonal allergies Pancreatic divisum Fibromyalgia Immunodeficiency disorder, selective immunoglobulin Asthma Crohns disease HTN (hypertension) GERD (gastroesophageal reflux disease) SARAHY (obstructive sleep apnea) Hypertension Home Medications ?Medication ?Instructions ?Recorded ?Last Taken ?Type pantoprazole 40 mg tablet,delayed 40 mg PO DAILY PRN Acid Reflux 05/29/20 10/18/23 History release diphenoxylate-atropine 2.5 5 tab PO DAILY Diarrhea/Loose 09/06/20 10/18/23 History mg-0.025 mg tablet Stools levothyroxine 50 mcg tablet 50 mcg PO DAILY thyroid 12/09/21 10/18/23 History ammonium lactate 12 % topical cream 1 applic topical BID dry legs 05/12/22 10/18/23 History sildenafil (pulm.hypertension) 20 20 mg PO TID Pulmonary HTN 12/19/22 Unknown History mg tablet budesonide-formoterol HFA 160 2 puff inhalation BID 09/24/22 10/18/23 History mcg-4.5 mcg/actuation aerosol inhaler (Symbicort) lidocaine 5 % topical patch 1 patch topical DAILY 09/24/22 10/18/23 History metronidazole 0.75 % (37.5 mg/5 1 appful vaginal DAILY PRN vaginal 09/24/22 Unknown History gram) vaginal gel irritation Prolia 60 mg/mL subcutaneous 60 mg subcut [id number] #1 mL 12/22/22 Unknown Rx syringe (denosumab) prednisone 2.5 mg tablet See Rx Instructions PO BID #270 05/22/23 10/18/23 Rx tabs valsartan 80 1 tab PO DAILY BP #90 tabs 05/29/23 Unknown Rx mg-hydrochlorothiazide 12.5 mg tablet rivaroxaban 20 mg tablet (Xarelto) 20 mg PO DAILY Please change 06/09/23 Unknown Rx quantity to 30 days #30 tabs amiodarone 100 mg tablet 100 mg PO DAILY heart #90 tabs 08/24/23 10/18/23 Rx digoxin 125 mcg (0.125 mg) tablet 125 mcg PO DAILY heart #90 tabs 08/24/23 10/18/23 Rx morphine 15 mg tablet,extended 15 mg PO TID PAIN 10/09/23 10/18/23 History release rifaximin 550 mg tablet (Xifaxan) 550 mg PO BID #60 tabs 10/09/23 Unknown Rx IVIG INFUSION 10/18/23 Unknown History cholecalciferol (vitamin D3) 1,250 1,250 mcg PO TUFR 10/18/23 10/16/23 History mcg (50,000 unit) capsule loratadine 10 mg tablet (Allergy 10 mg PO DAILY PRN allergy symptoms 10/18/23 Unknown History Relief (loratadine)) montelukast 10 mg tablet 10 mg PO DAILY 10/18/23 10/18/23 History Allergy/AdvReac Type Severity Reaction Status Date / Time codeine Allergy Severe ANGIOEDEMA/LEG Verified 10/18/23 12:54 SWELLING Penicillins Allergy Severe ANGIOEDEMA/LEG Verified 10/18/23 12:54 SWELLING Sulfa (Sulfonamide Allergy Severe ANGIOEDEMA/LEG Verified 10/18/23 12:54 Antibiotics) SWELLING sulfasalazine (From Allergy Severe ANGIOEDEMA/LEG Verified 10/18/23 12:54 Azulfidine) SWELLING Family History Father Anemia Heart disease Hypertension CVA (cerebral vascular accident) Mother Arthritis Cancer Osteoporosis Sister Arthritis Lung disease Surgical History History of kyphoplasty (~07/07/16) Leg fracture, right History of left knee replacement History of tonsillectomy History of total hysterectomy with bilateral salpingo-oophorectomy (BSO) History of pneumonectomy History of resection of small bowel History of right heart catheterization (RHC) (~05/09/16) Social History Smoking Status: Former smoker how long ago did patient quit smokin second hand exposure: No alcohol intake: current alcohol intake frequency: other substance use type: does not use caffeine: Yes Type: carbonated beverages, coffee and tea what type of physical activity do you participate in: none seatbelt use: always 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 ROS ED Constitutional Constitutional ED: Denies chills, fever(s) or sweats Eyes Eyes: Denies blurry vision or change in vision ENT ENT ED: Denies ear pain or sore throat Cardiovascular Cardiovascular: Denies chest pain, palpitations or racing heartbeat Respiratory/Chest Respiratory/Chest: Denies cough, dyspnea or sputum Gastrointestinal Gastrointestinal: Reports abdominal pain; Denies constipation, diarrhea, nausea or vomiting Genitourinary Genitourinary ED: Denies dysuria, hematuria or urinary frequency Musculoskeletal Musculoskeletal: Reports other Details: Left leg pain and swelling ; Denies arthralgias, myalgias or neck pain Integumentary Reports rash; Denies abscess or Abrasions Neurologic Neurologic: Denies headache(s), paresthesias or weakness Psychiatric Psychiatric: Denies anxiety, depression, suicidal ideation or suicidal thoughts Endocrine Endocrinology: Denies polydipsia or polyuria EXAM Physical Exam Const Vital Signs: 10/18/23 12:50 Temperature 97.8 F Temperature Source Oral Pulse Rate 89 Respiratory Rate 19 H Blood Pressure 141/62 H Blood Pressure Mean 88 Pulse Ox 93 Oxygen Delivery Method Room Air Positive well nourished HEENT Reports moist mucous membranes normocephalic and atraumatic Resp normal respiratory effort and clear to auscultation bilaterally Auscultation: Negative for rales, rhonchi or wheezes Cardio regular rate and regular rhythm GI Palpation: tender LLQ Back/Spine General Back: CVA tenderness left Neuro CN's II-XII intact bilaterally and moves all extremities Sensorium / Orientation: alert Psych mental status grossly normal Skin Skin Narrative: Bilateral lymphedema noted with some chronic stasis changes. Left lower extremity has increased erythema, warmth. No crepitance. It is tender to palpation. MDM MDM MDM Narrative Medical decision making narrative: Patient presenting with worsening of her left leg pain and chronic lymphedema as well as lower abdominal pain. She is also complaining of urinary complaints. Differential includes UTI, pyelonephritis, kidney stones, colitis, diverticulitis, cellulitis. CBC was obtained to assess white blood cell count, hemoglobin, platelets. LFTs to assess liver function. BMP to assess renal function, electrolytes, glucose. Urinalysis to assess for UTI. Patient had taken 2 [place] prior to arrival and states her pain was improving. CBC showed white blood cell count of 23.4. Hemoglobin 13.5. High at 482. LFTs are elevated today with a bilirubin of total bilirubin 4.3, direct bilirubin 0.75. Patient does have history of cirrhosis and although this is more elevated than previous she does not have any right upper quadrant pain. Urinalysis consistent with UTI. Lipase negative. CT of the abdomen pelvis with IV contrast was obtained which shows inflammation around the left external iliac vein which can suggest thrombophlebitis. Discussed with Dr. Vanegas is on-call for vascular and his recommendation would be anticoagulation at this point out of concern this could possibly be failed anticoagulation. Since the patient has cellulitis and a 23,000 white count I will cover her with broad-spectrum antibiotics. After speaking with the hospitalist she would prefer vancomycin and Levaquin due to penicillin allergy. I also ordered a heparin drip which Dr. Vanegas stated would be preferential since she is inpatient. Discussed all findings with the patient. Since she has a leukocytosis I did obtain a lactic acid which was normal at 1.2. PT slightly prolonged at 21.2 however INR 1.8, APTT 32.8. Blood cultures were also sent before starting antibiotics. Urine culture sent. Patient admitted in stable condition. Impression: 1. Leukocytosis 2. Cellulitis left lower extremity 3. Urinary tract infection 4. Thrombophlebitis Lab Data Attestation: I reviewed the patient's lab results. Labs: Laboratory Results - last 24 hr 10/18/23 10/18/23 10/18/23 12:30 13:15 14:40 WBC 23.4 H RBC 4.62 Hgb 13.5 Hct 44.2 MCV 95.7 MCH 29.2 MCHC 30.5 L RDW Std Deviation 48.0 H RDW Coeff of Curtis 13.6 Plt Count 482 H MPV 9.4 Immature Gran % (Auto) 0.900 Neut % (Auto) 88.6 H Lymph % (Auto) 5.3 L Daniels % (Auto) 4.8 Eos % (Auto) 0.0 Baso % (Auto) 0.4 Absolute Neuts (auto) 20.8 H Absolute Lymphs (auto) 1.24 Nucleated RBC % 0 Differential Comment SCANNED PT 21.2 H INR 1.8 APTT 32.8 Sodium 132 L Potassium 4.2 Chloride 92 L Carbon Dioxide 32.0 Anion Gap 8 BUN 19 H Creatinine 0.96 Est GFR (MDRD) Af Amer 74 Est GFR (MDRD) Non-Af 61 BUN/Creatinine Ratio 19.8 Glucose 116 H Lactic Acid 1.2 Calcium 9.1 Total Bilirubin 4.30 H Direct Bilirubin 0.75 H AST 13 L ALT 15 Alkaline Phosphatase 65 Total Protein 7.1 Albumin 3.1 L Globulin 4.0 Lipase 22 Urine Color SEE COMMENT BELOW Urine Clarity Clear Urine pH 6.5 Ur Specific [place] 1.015 Urine Protein 30 H Urine Glucose (UA) Normal Urine Ketones Negative Urine Occult Blood 10 H Urine Nitrite Positive H Urine Bilirubin 6 H Urine Urobilinogen 12 H Ur Leukocyte Esterase 100 H Urine RBC 0 SEEN Urine WBC 5-10 SEEN Ur Squamous Epith Cells 0-5 SEEN Urine Bacteria 1+ Urine Mucus 0 SEEN Radiography Diagnostic Testing: Clinical Impression(s) from Imaging Studies Abdomen/Pelvis CT 10/18/23 13:38 IMPRESSION: (NOT LISTED IN ORDER OF SIGNIFICANCE) Diffuse inflammation around the left external iliac vein. This can suggest thrombophlebitis. Venous duplex can further evaluate. Stable subcentimeter nodularities in the lower lobes may represent pneumonia. CT chest can better evaluate. There are multiple gallstones. Non obstructive 2 mm left renal parenchymal stones. Other findings as above. Electronically Signed: Allen Purvis MD at 14:09 EDT , Discharge Plan Triage Chief Complaint: Flank Pain ED Provider: Andrew Valencia Dx/Rx/DC Orders Primary Care Provider: Julian Brand Chi
[2023-10-18] MEDS: Enoxaparin 120 MG/0.8 ML Syringe 115 MG SC (16:03)
[2023-10-18] MEDS: Morphine 4 MG/ML Syringe IV (16:35)
[2023-10-18] MEDS: Ondansetron 4 MG/2 ML Vial IV (16:35)
[2023-10-18] MEDS: Enoxaparin 120 MG/0.8 ML Syringe 110 MG SC ×2 (17:26→20:23)
[2023-10-18] MEDS: Budesonide 3 MG CAPSULE.EC 9 MG PO (17:26)
[2023-10-18] MEDS: Lactated Ringers 1,000 ML 100 ML IV (17:30)
[2023-10-18] MEDS: Vancomycin HCl 1,750 MG in 0.9% Normal Saline (500mL Bag) 500 ML 250 MG IV (17:31)
--- NOTE | 2023-10-18 17:55 | PCM.RX.CS ---
Consult Antibiotic Management Pharmacy has been consulted to manage selected antibiotic: Vancomycin Type of Intervention Type of Consult: New start Suspected Infection Suspected Infection: Skin/Soft tissue Prior Doses of Antibiotics Prior Doses of Antibiotics Received/Current Regimen: Vancomycin 1750 mg IV x 1 given10/18/23 @ 4424 Labs Labs: Sodium 132 mmol/L (136-145) L 10/18/23 12:30 Potassium 4.2 mmol/L (3.5-5.1) 10/18/23 12:30 Chloride 92 mmol/L (98-107) L 10/18/23 12:30 Carbon Dioxide 32.0 mmol/L (21.0-32.0) 10/18/23 12:30 Anion Gap 8 (5-15) 10/18/23 12:30 BUN 19 mg/dL (7-18) H 10/18/23 12:30 Creatinine 0.96 mg/dL (0.55-1.02) 10/18/23 12:30 Est GFR (MDRD) Af Amer 74 mL/min (>60) 10/18/23 12:30 Est GFR (MDRD) Non-Af 61 mL/min (>60) 10/18/23 12:30 BUN/Creatinine Ratio 19.8 RATIO (10-20) 10/18/23 12:30 Glucose 116 mg/dL (74-106) H 10/18/23 12:30 Dosing Weight Weight used for dosin kg Estimated Creatinine Clearance Estimated Creatinine Clearance: ~64 Goal Trough Goal Trough: 15-20 mcg/mL Pharmacy Plan for Drug Dosing Pharmacy Plan for Drug Dosing: Vancomycin 1750 mg IV x 1 followed by 1500 mg IV Q12H Pharmacy Service will continue to monitor and adjust dosing as required. Follow-Up Labs Follow-Up Labs: Trough: Vancomycin Date/Time Labs Ordered Labs to be done on [date and time ordered]: 10/20/23 @ 0261
[2023-10-18] MEDS: Acetaminophen 325 MG Tablet 650 MG PO (18:17)
[2023-10-18] MEDS: Albuterol 2.5 MG/3 ML VIAL.NEB. INHALATION (19:49)
[2023-10-18] MEDS: Ammonium Lactate 225 gm Bottle 1 APPLIC TOPICAL (20:24)
[2023-10-18] MEDS: morphine SR 15 MG Tablet PO (20:24)
[2023-10-19] VITALS (10 sets, daily range): BP systolic 93–127; BP diastolic 52–70; PULSE 70–96; RESP 18–24; TEMP 36.3–37.1; O2SAT 75–99; BMI 42.0
[2023-10-19] MEDS: 0.9% Saline Lock 10 ML Syringe IV (05:51)
[2023-10-19] MEDS: morphine SR 15 MG Tablet PO ×3 (05:51→22:03)
[2023-10-19] MEDS: Vancomycin HCl 1,500 MG in 0.9% Normal Saline (500mL Bag) 500 ML 250 MG IV ×2 (05:52→16:47)
[2023-10-19] MEDS: Levothyroxine 50 MCG Tablet PO (05:54)
[2023-10-19] MEDS: Albuterol 2.5 MG/3 ML VIAL.NEB. INHALATION ×3 (06:47→19:10)
[2023-10-19 07:50] LABS: Absolute Lymphocyte Count 1.77 X10^3/uL (0.83-4.51); Absolute Neutrophil Count 11.1 X10^3/uL (2.0-7.7); Basophil# 0.05 X10^3/uL; Basophil% 0.4 % (0-1); Eosinophil# 0.13 X10^3/uL; Eosinophils% 0.9 % (0-5); Hematocrit 37.8 % (37-47); Hemoglobin 11.4 g/dL (12.0-15.0); Lymphocyte # 1.77 X10^3/ul (0.83-4.51); Lymphocyte % 12.5 % (19-41); Mean Corp Hgb Conc 30.2 g/dL (32-36); Mean Corpuscular Hgb 29.5 pg (27.0-32.0); Mean Corpuscular Volume 97.7 fL (81-99); Mean Platelet Vol. 9.2 fl (6.2-12.0); Monocyte# 1.04 X10^3/uL; Monocyte% 7.3 % (0-10); NRBC Flagged by Analyzer 0 % (0-5); Neutrophil # 11.12 X10^3/uL (2.7-7.7); Neutrophil % 78.4 % (47-70); Platelet Count 347 K/mm3 (150-450); RBC Distribution Width CV 13.6 % (11.6-14.6); RBC Distribution Width SD 47.8 fl (35.1-43.9); Red Blood Count 3.87 M/mm3 (4.2-5.4); White Blood Count 14.2 K/mm3 (4.4-11.0)
[2023-10-19] MEDS: Diphenoxylate/Atrop 1 Tablet 5 TABLET PO (07:51)
[2023-10-19 08:11] LABS: ALB/GLOB Ratio 0.8 RATIO (0.9-2.4); AST(SGOT) 9 U/L (15-37); Alanine Aminotransfer ALT/SGPT 12 U/L (13-56); Albumin, Serum 2.4 g/dL (3.2-5.0); Alkaline Phosphatase 51 U/L (45-117); Anion Gap 5 (5-15); BUN 19 mg/dL (7-18); BUN/Creat Ratio 22.6 RATIO (10-20); Calcium,Total 8.1 mg/dL (8.5-10.1); Chloride 96 mmol/L (98-107); Creatinine, Serum 0.84 mg/dL (0.55-1.02); EST Glomerular Filtration Rate 71 mL/min (>60); Est Glom Filt Rate - Afr Amer 86 mL/min (>60); Estimated Creatinine Clearance 79.83 ml/min; Globulin 3.2 g/dL (2.2-4.2); Glucose 94 mg/dL (74-106); Magnesium 1.6 mg/dL (1.6-2.6); Phosphorus 3.4 mg/dL (2.5-4.9); Potassium 4.4 mmol/L (3.5-5.1); Protein, Total 5.6 g/dL (6.4-8.2); Sodium Level 131 mmol/L (136-145)
[2023-10-19] MEDS: Budesonide 3 MG CAPSULE.EC 9 MG PO (09:54)
[2023-10-19] MEDS: Amiodarone 200 MG Tablet 100 MG PO (09:55)
[2023-10-19] MEDS: predniSONE 10 MG Tablet PO (09:55)
[2023-10-19] MEDS: Digoxin 125 MCG Tablet PO (09:56)
[2023-10-19] MEDS: Ammonium Lactate 225 gm Bottle 1 APPLIC TOPICAL ×2 (09:56→20:09)
[2023-10-19] MEDS: Enoxaparin 120 MG/0.8 ML Syringe 110 MG SC (09:58)
[2023-10-19] MEDS: Montelukast 10 MG Tablet PO (09:59)
[2023-10-19] MEDS: Acetaminophen 325 MG Tablet 650 MG PO (10:02)
[2023-10-19] MEDS: levoFLOXacin IV 750 MG/150 ML BAG 100 MG IV (10:06)
--- NOTE | 2023-10-19 10:54 | PN.HOSP_ITS ---
Reason for Visit Reason for Visit: Dysuria/left lower extremity leg pain Subjective Subjective Patient reports that she is feeling much better today than she did yesterday. Abdominal pain has resolved. Left lower extremity is feeling much better. It seems as if the erythema has retracted some from the outlined area that was made on presentation. I did discuss with her depending on the left lower extremity ultrasound she may be able to go home tomorrow on oral agents but discharge will be delayed if there is evidence of thrombus that needs intervened upon by vascular surgery on the ultrasound. Objective Data Objective Data Vital Signs: Vital Signs Temp Pulse Resp BP Pulse Ox O2 Del Method O2 Flow Rate 97.3 F L 70 18 97/58 L 93 Nasal Cannula 2 10/19/23 09:45 10/19/23 09:56 10/19/23 09:45 10/19/23 09:45 10/19/23 09:45 10/19/23 09:45 10/19/23 09:45 Oxygen Flow Rate (L/min) 2 Oxygen Delivery Method Nasal Cannula Weight: 114.5 kg Body Mass Index (BMI) 42.0 Intake & Output: Intake and Output for Last 24 Hours 10/17/23 10/18/23 10/19/23 23:59 23:59 23:59 Intake Total 635 / 835 1200 / 1200 Output Total 200 / 200 Balance 635 / 835 1000 / 1000 Lab / Micro Data 10/19/23 07:35 10/19/23 07:35 Labs: Laboratory Results - last 24 hr 10/18/23 12:30: WBC 23.4 H, RBC 4.62, Hgb 13.5, Hct 44.2, MCV 95.7, MCH 29.2, M CHC 30.5 L, RDW Std Deviation 48.0 H, RDW Coeff of Curtis 13.6, Plt Count 482 H, MPV 9.4, Immature Gran % (Auto) 0.900, Neut % (Auto) 88.6 H, Lymph % (Auto) 5.3 L, [place] % (Auto) 4.8, Eos % (Auto) 0.0, Baso % (Auto) 0.4, Absolute Neuts (auto) 20.8 H, Absolute Lymphs (auto) 1.24, Nucleated RBC % 0, Differential Comment SCANNED, PT 21.2 H, INR 1.8, APTT 32.8, Sodium 132 L, Potassium 4.2, Chloride 92 L, Carbon Dioxide 32.0, Anion Gap 8, BUN 19 H, Creatinine 0.96, Est GFR (MDRD) Af Amer 74, Est GFR (MDRD) Non-Af 61, BUN/Creatinine Ratio 19.8, Glucose 116 H, Calcium 9.1, Total Bilirubin 4.30 H, Direct Bilirubin 0.75 H, AST 13 L, ALT 15, Alkaline Phosphatase 65, Total Protein 7.1, Albumin 3.1 L, Globulin 4.0, Lipase 22 10/18/23 13:15: Urine Color SEE COMMENT BELOW, Urine Clarity Clear, Urine pH 6.5, Ur Specific [place] 1.015, Urine Protein 30 H, Urine Glucose (UA) Normal, Urine Ketones Negative, Urine Occult Blood 10 H, Urine Nitrite Positive H, Urine Bilirubin 6 H, Urine Urobilinogen 12 H, Ur Leukocyte Esterase 100 H, Urine RBC 0 SEEN, Urine WBC 5-10 SEEN, Ur Squamous Epith Cells 0-5 SEEN, Urine Bacteria 1+, Urine Mucus 0 SEEN 10/18/23 14:40: Lactic Acid 1.2 10/19/23 07:35: WBC 14.2 H, RBC 3.87 L, Hgb 11.4 L, Hct 37.8, MCV 97.7, MCH 29.5, MCHC 30.2 L, RDW Std Deviation 47.8 H, RDW Coeff of Curtis 13.6, Plt Count 347, MPV 9.2, Immature Gran % (Auto) 0.500, Neut % (Auto) 78.4 H, Lymph % (Auto) 12.5 L, [place] % (Auto) 7.3, Eos % (Auto) 0.9, Baso % (Auto) 0.4, Absolute Neuts (auto) 11.1 H, Absolute Lymphs (auto) 1.77, Nucleated RBC % 0, Sodium 131 L, Potassium 4.4, Chloride 96 L, Carbon Dioxide 30.0, Anion Gap 5, BUN 19 H, Creatinine 0.84, Estim Creat Clear Calc 79.83, Est GFR (MDRD) Af Amer 86, Est GFR (MDRD) Non-Af 71, BUN/Creatinine Ratio 22.6 H, Glucose 94, Calcium 8.1 L, Phosphorus 3.4, Magnesium 1.6, Total Bilirubin 3.30 H, AST 9 L, ALT 12 L, Alkaline Phosphatase 51, Total Protein 5.6 L, Albumin 2.4 L, Globulin 3.2, A lbumin/Globulin Ratio 0.8 L Radiography Diagnostic Testing: Radiology Impression Abdomen/Pelvis CT 10/18/23 13:38 IMPRESSION: (NOT LISTED IN ORDER OF SIGNIFICANCE) Diffuse inflammation around the left external iliac vein. This can suggest thrombophlebitis. Venous duplex can further evaluate. Stable subcentimeter nodularities in the lower lobes may represent pneumonia. CT chest can better evaluate. There are multiple gallstones. Non obstructive 2 mm left renal parenchymal stones. Other findings as above. Electronically Signed: Allen Purvis MD at 14:09 EDT , Physical Exam Const alert, oriented x3, no apparent distress and well nourished; Negative for average body habitus or healthy appearing Constitutional Narrative: Morbidly obese, white female, sitting up in a chair at the bedside, has just finished breakfast, watching television, appears comfortable, appears as if she is feeling much better today, not toxic General Appearance: cooperative HEENT normocephalic, head/scalp atraumatic, hearing grossly normal bilaterally and moist oral mucous membranes HEENT Narrative: Mallampati is 3, no thrush Resp normal respiratory effort, no retractions, no use of accessory muscles and clear to auscultation bilaterally Auscultation: Negative for rales, rhonchi or wheezes Cardio regular rate, regular rhythm, S1 normal heart sound, S2 normal heart sound, no murmurs, no rub, no gallops and no clicks GI normal to inspection, nondistended, normoactive bowel sounds, soft to palpation and non-tender Extremity Extremity Narrative: Marked bilateral lower extremity lymphedema that appears to be chronic, no cyanosis or clubbing Skin Skin Narrative: Significant excoriations on bilateral lower extremities that appear to be superficial left greater than right, left lower extremity, erythema has retracted from outlined area on presentation and left lower extremity is less erythematous and tissue temperature is decreased today Neuro oriented x3, moves all extremities and no focal motor deficits Neuro Narrative: Generalized weakness noted but no focal deficits Speech: speech normal Psych affect normal Psych Narrative: Very pleasant, interacts appropriately Assessment & Plan Assessment/Plan (1) Cellulitis: (2) Abnormal CT of the abdomen: (3) UTI (urinary tract infection): (4) Leukocytosis: (5) Hyponatremia: (6) Hyperbilirubinemia: PLAN: Plan Left lower extremity cellulitis -Clinically much better today with retraction of erythema from outlined area on presentation, less tender and decreased tissue temperature -Leukocytosis is improving -Likely related to superficial skin infection from multiple excoriations complicated by her lymphedema -Blood cultures are pending -Continue to elevate lower extremity -Patient with multiple antibiotic allergies so we will utilize Levaquin to ensure we cover Pseudomonas as well as vancomycin -MRSA PCR is pending -If MRSA PCR is negative we will send home on monotherapy with Levaquin at discharge if positive will send home with dual antibiotic therapy utilizing Levaquin and doxycycline Abnormal UA with suspected UTI -Patient was symptomatic--> feeling much better today -UA was suggestive of infection -Urine cultures was ordered but does not appear to be collected -Will see if they can add onto yesterday's UA as now she has had antibiotics and culture would be inaccurate -Continue Levaquin and vancomycin as noted above Hyperbilirubinemia-acute on chronic -Baseline bilirubin level appears to be between 1.3 and 1.7 -Was 4.3 on admission but down to 3.3 today -May have been up acutely because of infections -Patient follows with GI as an outpatient -Patient does have known liver cirrhosis -If continues to trend up may need further assistance from gastroenterology -Patient follows with Dr. Redmna as an outpatient Liver cirrhosis -Follows with Dr. Redman -Future plan is for possible liver biopsy -Biochemical workup is pending -Current MELD is 7 -No signs of decompensated liver disease currently -Continue home rifaximin Hyponatremia -Mild and relatively stable -Likely related to the above -Will follow Abnormal CT of the abdomen -CT was suggestive of inflammation around the left iliac vein with concern for thrombophlebitis -CT was done for left lower abdomen pain -Left lower extremity Dopplers pending -Lovenox 115 kg twice daily for now until we can rule out new thrombus if ruled out will restart Xarelto -Vascular surgery following--> discussed with Dr. Vanegas Generalized weakness secondary to chronic comorbidities and decreased activity -PT/OT consultation is pending History of atrial fibrillation -Continue home amiodarone -Continue home digoxin -Rivaroxaban currently on hold -Full dose Lovenox for the above Obstructive sleep apnea -Patient is not compliant with CPAP at home -Monitor for supplemental oxygen needs Chronic thrombocytosis -Platelet count is currently at baseline -Will continue to monitor Hypothyroidism -Continue home levothyroxine Pulmonary hypertension -Continue home sildenafil 20 mg 3 times daily History of nephrolithiasis -No obstructing stones noted at this time Osteoporosis -Patient is on outpatient Prolia -Continue home vitamin D and calcium supplementation Crohn's disease -Continue home prednisone--> weaning as she has previously been steroid refractory -History of multiple bowel resections -Per most recent recommendations from Dr. Redman will need MR enterography -No significant gut abnormality found on current CT of the abdomen and pelvis -Start budesonide 9 mg daily per recent GI instructions COPD -Continue inhalers -As needed aerosols Chronic pain -Continue home morphine DVT prophylaxis -Therapeutic Lovenox as noted above CODE STATUS -Full code Charges/Coding Visit Charges Inpatient E&M: 24795 Subs Hosp L2
[2023-10-19] MEDS: Rivaroxaban 20 MG Tablet PO (17:30)
[2023-10-19] MEDS: rifAXIMin 550 MG Tablet PO (22:03)
[2023-10-19] MEDS: SILDENAFIL CITRATE 20 MG TABLET PO (22:04)
[2023-10-19 22:12] LABS: M R Staph aureus DNA By PCR Negative (Negative); Probe Check PASS; Specimen Processing Control PASS
[2023-10-20] VITALS (8 sets, daily range): BP systolic 102–127; BP diastolic 61–74; PULSE 72–93; RESP 16–20; TEMP 36.6–36.9; O2SAT 93–97; BMI 42.3
[2023-10-20 04:46] LABS: Absolute Lymphocyte Count 0.86 X10^3/uL (0.83-4.51); Absolute Neutrophil Count 9.5 X10^3/uL (2.0-7.7); Basophil# 0.04 X10^3/uL; Basophil% 0.3 % (0-1); Eosinophil# 0.15 X10^3/uL; Eosinophils% 1.3 % (0-5); Hematocrit 36.3 % (37-47); Hemoglobin 10.9 g/dL (12.0-15.0); Lymphocyte # 0.86 X10^3/ul (0.83-4.51); Lymphocyte % 7.4 % (19-41); Mean Corpuscular Hgb 29.7 pg (27.0-32.0); Mean Corpuscular Volume 98.9 fL (81-99); Mean Platelet Vol. 9.5 fl (6.2-12.0); Monocyte# 0.94 X10^3/uL; Monocyte% 8.1 % (0-10); NRBC Flagged by Analyzer 0 % (0-5); Neutrophil # 9.51 X10^3/uL (2.7-7.7); Neutrophil % 82.2 % (47-70); Platelet Count 345 K/mm3 (150-450); RBC Distribution Width CV 13.5 % (11.6-14.6); Red Blood Count 3.67 M/mm3 (4.2-5.4); White Blood Count 11.6 K/mm3 (4.4-11.0)
[2023-10-20 05:12] LABS: ALB/GLOB Ratio 0.6 RATIO (0.9-2.4); AST(SGOT) 11 U/L (15-37); Alanine Aminotransfer ALT/SGPT 11 U/L (13-56); Albumin, Serum 2.2 g/dL (3.2-5.0); Alkaline Phosphatase 48 U/L (45-117); Anion Gap 7 (5-15); BUN 19 mg/dL (7-18); BUN/Creat Ratio 22.8 RATIO (10-20); Calcium,Total 8.1 mg/dL (8.5-10.1); Chloride 96 mmol/L (98-107); Creatinine, Serum 0.83 mg/dL (0.55-1.02); EST Glomerular Filtration Rate 72 mL/min (>60); Est Glom Filt Rate - Afr Amer 87 mL/min (>60); Estimated Creatinine Clearance 80.79 ml/min; Globulin 3.4 g/dL (2.2-4.2); Glucose 108 mg/dL (74-106); Potassium 4.8 mmol/L (3.5-5.1); Protein, Total 5.6 g/dL (6.4-8.2); Sodium Level 133 mmol/L (136-145)
[2023-10-20 05:13] LABS: Vancomycin, Trough Level 25.7 ug/mL (5.0-15.0)
--- NOTE | 2023-10-20 05:20 | PCM.RX.CS ---
Consult Antibiotic Management Pharmacy has been consulted to manage selected antibiotic: Vancomycin Type of Intervention Type of Consult: Follow-up Suspected Infection Suspected Infection: Skin/Soft tissue Labs Labs: Sodium 133 mmol/L (136-145) L 10/20/23 04:31 Potassium 4.8 mmol/L (3.5-5.1) 10/20/23 04:31 Chloride 96 mmol/L (98-107) L 10/20/23 04:31 Carbon Dioxide 30.0 mmol/L (21.0-32.0) 10/20/23 04:31 Anion Gap 7 (5-15) 10/20/23 04:31 BUN 19 mg/dL (7-18) H 10/20/23 04:31 Creatinine 0.83 mg/dL (0.55-1.02) 10/20/23 04:31 Est GFR (MDRD) Af Amer 87 mL/min (>60) 10/20/23 04:31 Est GFR (MDRD) Non-Af 72 mL/min (>60) 10/20/23 04:31 BUN/Creatinine Ratio 22.8 RATIO (10-20) H 10/20/23 04:31 Glucose 108 mg/dL (74-106) H 10/20/23 04:31 Vancomycin Trough 25.7 ug/mL (5.0-15.0) H 10/20/23 04:31 Dosing Weight Weight used for dosin.5 kg Estimated Creatinine Clearance Estimated Creatinine Clearance: 81 Goal Trough Goal Trough: 15-20 mcg/mL Pharmacy Plan for Drug Dosing Pharmacy Plan for Drug Dosing: Vancomycin trough level, drawn 11.75hrs post-dose, was high at 25.7. Current dosing will be held. A random level will be drawn in 12 hours, and further dosing determined from that result. Pharmacy Service will continue to monitor and adjust dosing as required. Follow-Up Labs Follow-Up Labs: Trough: Vancomycin (random) Date/Time Labs Ordered Labs to be done on [date and time ordered]: 10/20/23 @1630 random
[2023-10-20] MEDS: morphine SR 15 MG Tablet PO ×2 (05:46→13:46)
[2023-10-20] MEDS: Diphenoxylate/Atrop 1 Tablet 5 TABLET PO (05:47)
[2023-10-20] MEDS: 0.9% Saline Lock 10 ML Syringe IV (05:47)
[2023-10-20] MEDS: SILDENAFIL CITRATE 20 MG TABLET PO ×2 (05:47→13:46)
[2023-10-20] MEDS: Levothyroxine 50 MCG Tablet PO (05:47)
[2023-10-20] MEDS: Albuterol 2.5 MG/3 ML VIAL.NEB. INHALATION (06:32)
--- NOTE | 2023-10-20 07:57 | WOUNDNOTE ---
Was asked to see patient for edema to bilateral lower legs. patient has chronic lymphedema. there is moderate discoloration noted to the left lower leg. no open areas noted. there is a small scabbed over abrasion to the left raymond. patient states she scraped the raymond and then her cat scratched it as well. this is most likely the nidus of the cellulitis. patient's ankles and feet are much smaller than the legs, making compression wraps difficult. they tend to constrict at the ankles. will monitor at this time. pt does have lymphedema pumps at home and admits to not using them routinely. encouraged patient to really start being strict in the use of the pumps. see skin photos.
--- NOTE | 2023-10-20 09:45 | WOUNDNOTE ---
skin photo: left lower leg
--- NOTE | 2023-10-20 09:46 | WOUNDNOTE ---
skin photo: right lower leg
[2023-10-20] MEDS: Amiodarone 200 MG Tablet 100 MG PO (10:14)
[2023-10-20] MEDS: predniSONE 10 MG Tablet PO (10:14)
[2023-10-20] MEDS: Digoxin 125 MCG Tablet PO (10:15)
[2023-10-20] MEDS: Losartan Potassium 25 MG Tablet PO (10:15)
[2023-10-20] MEDS: Montelukast 10 MG Tablet PO (10:15)
[2023-10-20] MEDS: Ergocalciferol 1.25 MG (50, 000 UNIT) Capsule PO (10:15)
[2023-10-20] MEDS: hydroCHLOROthiazide 12.5mg 12.5 MG PO (10:15)
[2023-10-20] MEDS: rifAXIMin 550 MG Tablet PO (10:15)
[2023-10-20] MEDS: Lidocaine 5% Patch 1 PATCH TOPICAL (10:16)
[2023-10-20] MEDS: Ammonium Lactate 225 gm Bottle 1 APPLIC TOPICAL (10:16)
[2023-10-20] MEDS: levoFLOXacin IV 750 MG/150 ML BAG 100 MG IV (10:16)
[2023-10-20] MEDS: 0.9% Normal Saline (250mL Bag) 250 ML 15 ML IV (10:17)
--- NOTE | 2023-10-20 10:35 | CASEMGMT ---
MOHSEN MCGARRY Assessment: MOHSEN MCGARRY to room to meet with pt for initial transition planning/care coordination assessment. MOHSEN MCGARRY introduced self and role at [facility], pt voices understanding and consents to assessment. Pt resting in bed. Pt is A/O and answers all questions appropriately at this time. Care providers, pharmacy, and demographics verified/updated. PCP: Dr Brand. Specialists: Dr Redman-GI, Dr Hawkins and Amira, BPM DEVELOPER-oncology, Dr Hewitt-endocrinology, Dr Banks-pulmonology, [facility]/Cardiology Preferred Pharmacy: [facility] Retail Insurance: Medicare A/B, Medical [employer] Prescription Benefit: Yes. LW/HPOA: Pt states she has both LW and HCPOA, who is her friend, Gabbie DAMON: Friend/HCPOA-Gabbie Thompson. Brother- Lexi Herrera. Living Arrangements: Pt lives alone in a one story condo with one step to enter. Independent w/ADL's. Orders groceries on-line and hires a cleaning lady. Transportation: Pt drives self and has friends that are able to drive if her if needed. DME: Pt has a quad cane, grab bars, hospital bed, comfort-height commode, hand-held shower, nebulizer, pulse ox, lymphedema pumps, bariatric walker. She also has a W/C and BSC available, but does not use these. Has home O2 thru [employer] that she mostly wears @ night and PRN during the day. [place] [facility] 5 l/m continuous. Pt states she has a concentrator only, stating she used to have portable tanks but she returned them d/t they were too difficult to carry around. She states she plans to [place] [facility] [place] about getting smaller portable O2 tanks to have on-hand, if needed, and denies needing assistance from MOHSEN MCGARRY. Pt has a CPAP but does not use it. SNF/HHC: Pt has been to [facility] TCU in the past and has had [facility] HHC in the past. She declines need for HHC and would like script for aquatic therapy. Script provided to pt at this time. She states she will schedule this on her own and declines needing assistance from MOHSEN MCGARRY. Pt states no concerns with going home at time of dc. Pt states no further concerns/needs. CM to follow. Advised pt to ask CM if any further question/concerns/needs arise, voices understanding. Plan:?Home w/OP aquatic therapy. Imtiaz TOWNSENDN RN CM
[2023-10-20] MEDS: Budesonide 3 MG CAPSULE.EC 9 MG PO (10:46)
--- NOTE | 2023-10-20 11:25 | CASEMGMT ---
RN CM into pt room, pt lying in bed in no distress. Pt requested to not have certain practitioner at [facility] wound center, notified pt able to request alternate times and provider.
--- NOTE | 2023-10-20 13:08 | PCM.DC.SUM ---
Providers Date of Admission: 10/18/23 Primary Care Physician: Dr. Julian Brand MD Consultations 10/18/23 16:59 Consult: Onc/Wound/hvac field service technician Routine Comment: Consult: Vascular Surgery Routine Consulting Provider: Stuart Vanegas Reason for Consult: ? L LE Thrombophebitis EMERGENT Consult: No MD Notified: Yes Date Notified: 10/18/23 Time Notified: 14:54 Method of Notification: ED Physician Initiated Reason For Visit: LE CELLULITIS/UTI Diagnosis Discharge Diagnosis (1) Cellulitis: Status: Acute Code(s): L03.90 - Cellulitis, unspecified (2) Abnormal CT of the abdomen: Status: Acute Code(s): R93.5 - Abnormal findings on diagnostic imaging of other abdominal regions, including retroperitoneum (3) UTI (urinary tract infection): Status: Acute Code(s): N39.0 - Urinary tract infection, site not specified (4) Leukocytosis: Status: Acute Code(s): D72.829 - Elevated white blood cell count, unspecified (5) Hyponatremia: Status: Acute Code(s): E87.1 - Hypo-osmolality and hyponatremia (6) Hyperbilirubinemia: Status: Acute Code(s): E80.6 - Other disorders of bilirubin metabolism Medications at Discharge Home Medications pantoprazole 40 mg tablet,delayed release 40 mg PO DAILY PRN Acid Reflux 05/29/20 diphenoxylate-atropine 2.5 mg-0.025 mg tablet 5 tab PO DAILY Diarrhea/Loose Stools 09/06/20 levothyroxine 50 mcg tablet 50 mcg PO DAILY thyroid 12/09/21 ammonium lactate 12 % topical cream 1 applic topical BID dry legs 05/12/22 sildenafil (pulm.hypertension) 20 mg tablet 20 mg PO TID Pulmonary HTN 05/12/22 budesonide-formoterol HFA 160 mcg-4.5 mcg/actuation aerosol inhaler (Symbicort) 2 puff inhalation BID 09/24/22 lidocaine 5 % topical patch 1 patch topical DAILY 09/24/22 metronidazole 0.75 % (37.5 mg/5 gram) vaginal gel 1 appful vaginal DAILY PRN vaginal irritation 09/24/22 Prolia 60 mg/mL subcutaneous syringe (denosumab) 60 mg subcut [id number] #1 mL 12/22/22 prednisone 2.5 mg tablet See Rx Instructions PO BID #270 tabs 05/22/23 valsartan 80 mg-hydrochlorothiazide 12.5 mg tablet 1 tab PO DAILY BP #90 tabs 05/29/23 rivaroxaban 20 mg tablet (Xarelto) 20 mg PO DAILY Please change quantity to 30 days #30 tabs 06/09/23 amiodarone 100 mg tablet 100 mg PO DAILY heart #90 tabs 08/24/23 digoxin 125 mcg (0.125 mg) tablet 125 mcg PO DAILY heart #90 tabs 08/24/23 morphine 15 mg tablet,extended release 15 mg PO TID PAIN 10/09/23 rifaximin 550 mg tablet (Xifaxan) 550 mg PO BID #60 tabs 10/09/23 IVIG INFUSION 10/18/23 cholecalciferol (vitamin D3) 1,250 mcg (50,000 unit) capsule 1,250 mcg PO TUFR 10/18/23 loratadine 10 mg tablet (Allergy Relief (loratadine)) 10 mg PO DAILY PRN allergy symptoms 10/18/23 montelukast 10 mg tablet 10 mg PO DAILY 10/18/23 levofloxacin 750 mg tablet 750 mg PO DAILY #12 tabs 10/20/23 Hospital Course Summary of Care Provided Hospital Course: RAFIQ ALCANTAR, is a 67 F who presented to the emergency department at [facility] on 10/18/2023 complaining of dysuria and lower abdominal pain as well as lower extremity edema. Patient reported her symptoms had been ongoing for a couple of days and she initially thought she had just waited too long. She does have a history of nephrolithiasis and was concerned that some flank pain she was experiencing was related to this plus a urinary tract infection. She also reported she has a history of Crohn's disease and has required resections previously. She denied any fever and indicated she has bilateral lower extremity edema that is stable however her left lower extremity became acutely painful and more erythematous this morning. She denies ever having previous cellulitis but has chronic lymphedema in the lower third of her legs. She states her left lower extremity is a lot more red than her right and much more erythematous than her baseline as well as warm to touch and significantly painful. She does take Xarelto at baseline and has not missed any doses. She denies any known new trauma to this leg, however on evaluation she has significant excoriations of bilateral legs but seems to be more significant on the left on the right. Vital signs on presentation showed a temperature of 97.8, heart rate 89, respiratory rate 19, blood pressure was 141/62 and pulse ox was 93% on room air. CBC shows marked leukocytosis with a white count of 23.4 and a left shift at 88.6%. She had a thrombocytosis but upon review of the chart it appears this is chronic and no worse than baseline. Coags were elevated as expected with Xarelto use. Her chemistry panel showed mild hyponatremia, normal renal function with mild hyperglycemia having a glucose of 116 and significantly elevated bilirubin higher than her baseline of 1.3-1.7 at 4.30. Her lipase was 22. Her UA is suggestive of infection having positive nitrates, leuk esterase, white cells and bacteria. CT of the abdomen pelvis was done and showed diffuse inflammation around the left external iliac vein that can suggest thrombophlebitis this a stable subcentimeter nodularities in the lower lobes of the lungs, multiple gallstones and a nonobstructive 2 mm left renal parenchymal stone. Given her UA suspicious for urinary tract infection urine culture was sent and blood cultures were also sent given her lower extremity cellulitis. It was felt she needed to be admitted. Also with regards to her questionable thrombophlebitis a left lower extremity duplex was recommended by vascular surgery as well as transition from Xarelto to low molecular weight heparin. Vascular surgery indicated they would see the patient consult if DVT was present. She was admitted to the medical floor and placed on vancomycin and Levaquin initially. Ultrasound of the left lower extremity was ordered. Within 24 hours of being on IV antibiotics for leg looked much better. MRSA PCR was negative so vancomycin was discontinued and she was maintained on Levaquin. She does have multiple antibiotic allergies which limited our choices at the time of discharge. With regards to the ultrasound it was negative for any thrombophlebitis and is likely that the abnormalities noted on her CAT scan were related to her left lower extremity infection as well as her urinary tract infection. The heparin drip was discontinued and her home Xarelto was restarted. Unfortunately urine was not sent for culture prior to antibiotics being started but her UA was consistent with infection and she was symptomatically improved with antibiotics. By 10/20/2019 4 in the morning she was feeling much better. Her white count had trended down from greater than 23,000 on admission to 11,600. Her bilirubin had returned close to her baseline and she was clinically feeling much better with significantly reduced pain in her left lower extremity, retraction of the erythematous area and decrease swelling. She does have chronic lymphedema and we did discuss that this increases her risk for recurrent infections. She expressed interest in following up at [facility] for ongoing lymphedema treatment and I gave her a prescription for this to pursue after her antibiotics are completed. We will also have her follow-up at the wound center to ensure complete healing of her left lower extremity and no concomitant problems that develop after discharge. The Levaquin should also treat her UTI. We have also given her routine referral to vascular surgery per her request as she has not found a vascular surgeon which has yet been very helpful in identifying the issue of her edema or at least explaining to her the overall prognosis. Referral to Dr. Vanegas was made. She is to follow-up with him at his first available appointment. I also asked that she follow-up with her primary care physician within the next 7 to 10 days for reevaluation of her left lower extremity. She was discharged home in stable condition on 10/20/2023. No medication alterations were made from her home medication. She was started on Levaquin 750 mg p.o. daily for the next 12 days to complete antibiotic course of 14 days for her left lower extremity cellulitis. This should also more than cover treatment for her urine. Patient did feel stable to go home and felt she could take care of herself upon discharge. Discharge diagnoses: Left lower extremity cellulitis-resolving Urinary tract infection Hyperbilirubinemia-acute on chronic Liver cirrhosis Hyponatremia Generalized weakness secondary to chronic comorbidities and decreased activities-chronic History of atrial fibrillation SARAHY Chronic thrombocytosis Hypothyroidism Pulmonary hypertension History nephrolithiasis Osteoporosis Crohn's disease COPD Chronic pain Physical Exam Const alert, oriented x3, no apparent distress and well nourished; Negative for average body habitus or healthy appearing Constitutional Narrative: Morbidly obese, white female, sitting up in bed, watching television, appears comfortable, appears as if she is feeling much better today, not toxic General Appearance: cooperative, comfortable, well kempt and well developed Exam Limitations: no limitations Nutritional Appearance: morbidly obese HEENT normocephalic, head/scalp atraumatic, hearing grossly normal bilaterally and moist oral mucous membranes HEENT Narrative: Mallampati 2, no thrush Eyes PERRL, EOMs intact bilaterally and conjunctivae normal Eyes Narrative: No scleral icterus Neck no lymphadenopathy and supple Neck Narrative: Trachea midline, no noted thyroid enlargement Resp normal respiratory effort, no retractions, no use of accessory muscles and clear to auscultation bilaterally Auscultation: Negative for rales, rhonchi or wheezes Cardio regular rate, regular rhythm, S1 normal heart sound, S2 normal heart sound, no murmurs, no rub, no gallops and no clicks GI normal to inspection, nondistended, normoactive bowel sounds, soft to palpation and non-tender GI Narrative: Mild tenderness at very distal left lower quadrant Extremity Extremity Narrative: Marked bilateral lower extremity lymphedema that appears to be chronic, no cyanosis or clubbing Skin Skin Narrative: Significant excoriations on bilateral lower extremities that appear to be superficial left greater than right, left lower extremity, erythema has retracted further, no significant tenderness today and tissue temperature is markedly reduced, no open areas concerning for acute infection that would need for debridement Neuro oriented x3, CN's II-XII intact bilaterally, moves all extremities and no focal motor deficits Neuro Narrative: Generalized weakness noted but no focal deficits Speech: speech normal Psych affect normal Psych Narrative: Very pleasant, interacts appropriately Weight / BMI Weight Weight: 115.3 kg Body Mass Index (BMI) 42.3 ABG / Lab / Microbiology Data 10/20/23 04:31 10/20/23 04:31 Laboratory: Laboratory Results - last 24 hr 10/19/23 18:35: MRSA (PCR) Negative 10/20/23 04:31: WBC 11.6 H, RBC 3.67 L, Hgb 10.9 L, Hct 36.3 L, MCV 98.9, MCH 29.7, MCHC 30.0 L, RDW Std Deviation 49.0 H, RDW Coeff of Curtis 13.5, Plt Count 345, MPV 9.5, Immature Gran % (Auto) 0.700, Neut % (Auto) 82.2 H, Lymph % (Auto) 7.4 L, Titus % (Auto) 8.1, Eos % (Auto) 1.3, Baso % (Auto) 0.3, Absolute Neuts (auto) 9.5 H, Absolute Lymphs (auto) 0.86, Nucleated RBC % 0, Sodium 133 L, Potassium 4.8, Chloride 96 L, Carbon Dioxide 30.0, Anion Gap 7, BUN 19 H, Creatinine 0.83, Estim Creat Clear Calc 80.79, Est GFR (MDRD) Af Amer 87, Est GFR (MDRD) Non-Af 72, BUN/Creatinine Ratio 22.8 H, Glucose 108 H, Calcium 8.1 L, Total Bilirubin 2.00 H, AST 11 L, ALT 11 L, Alkaline Phosphatase 48, Total Protein 5.6 L, Albumin 2.2 L, Globulin 3.4, Albumin/Globulin Ratio 0.6 L, Vancomycin Trough 25.7 H D/C Instructions Discharge Diet: Low fat / Low cholesterol Discharge Activity: Return to Normal Activity Meaningful Use Info Meaningful Use Meaningful Use Diagnoses (Choose all that apply): None applicable Ischemic Stroke Statin Dosing Therapy Reference: STATIN DOSE THERAPY REFERENCE: * Patients > 75 years receive moderate or high dose statin therapy. * Patients 75 years or YOUNGER should receive HIGH intensity statin dose unless contraindicated. You will be required to document reason for non-treatment if statin daily dose does not meet guidelines. HIGH DOSE STATIN THERAPY DAILY Atorvastatin > than or = to 40 mg Rosuvastatin > than or = to 20 mg Amlodipine + Atorvastatin > than or = to 2.5/40 mg Ezetimibe + Simvastatin 10/80 mg Simvastatin 80mg Discharge Plan Admission Admit Date/Time: 10/18/23 14:52 Primary Reason for Your Visit: Abdominal Pain Attending Provider: Joya Clemente Primary Care Provider: Julian Brand Chi Consulting Providers: Stuart Vanegas Instructions Additional Instructions / Restrictions: 1. Follow-up at the wound center as directed but not on Wednesdays as daughter works on those days. 2. Follow-up at [facility] for your lymphedema per our discussion--> would wait to start any water therapy until antibiotics are completed and infection is resolved 3. Please complete all antibiotics 4. Follow-up with Dr. Vanegas from vascular surgery as noted below Discharge Orders/Prescriptions Prescriptions: New levofloxacin 750 mg tablet 750 mg PO DAILY Qty: 12 0RF Rx Instructions: Start first home dose tomorrow 10/20/2023 Continued pantoprazole 40 mg tablet,delayed release (DR/EC) 40 mg PO DAILY PRN (Reason: Acid Reflux) levothyroxine 50 mcg tablet 50 mcg PO DAILY valsartan-hydrochlorothiazide 80-12.5 mg tablet 1 tab PO DAILY Qty: 90 3RF Prolia 60 mg/mL syringe 60 mg subcut [id number] Qty: 1 1RF budesonide-formoterol [Symbicort] 160-4.5 mcg/actuation HFA aerosol inhaler 2 puff inhalation BID metronidazole 0.75 % (37.5mg/5 gram) gel 1 appful vaginal DAILY PRN (Reason: vaginal irritation) lidocaine 5 % adhesive patch,medicated 1 patch topical DAILY Rx Instructions: leave on most painful area for up to 12 hrs prednisone 2.5 mg tablet See Rx Instructions PO BID Qty: 270 0RF Patient Comments: PT TAKES 10MG ONCE DAILY RIGHT NOW Rx Instructions: 5 mg breakfast, 2.5 mg afternoon with food orally twice a day; Xifaxan 550 mg tablet 550 mg PO BID Qty: 60 6RF Patient Comments: INS REQ PA, PT HASNT GOTTEN MED YET diphenoxylate-atropine 2.5-0.025 mg tablet 5 tab PO DAILY ammonium lactate 12 % cream 1 applic TOPICAL BID Patient Comments: Apply to the lower legs twice daily sildenafil (pulm.hypertension) 20 mg tablet 20 mg PO TID morphine 15 mg tablet extended release 15 mg PO TID Patient Comments: TAKE 1 TABLET BY MOUTH 3NTIMES DAILY montelukast 10 mg tablet 10 mg PO DAILY loratadine [Allergy Relief (loratadine)] 10 mg tablet 10 mg PO DAILY PRN (Reason: allergy symptoms) cholecalciferol (vitamin D3) 1,250 mcg (50,000 unit) capsule 1,250 mcg PO TUFR IVIG INFUSION Rx Instructions: PT GETS IVIG INFUSIONS EVERY 6 MONTHS IN ONCOLOGY DEPT. LAST INFUSION IN AUGUST Xarelto 20 mg tablet 20 mg PO DAILY Qty: 30 11RF amiodarone 100 mg tablet 100 mg PO DAILY Qty: 90 3RF digoxin 125 mcg (0.125 mg) tablet 125 mcg PO DAILY Qty: 90 3RF Referrals / Follow Up: Stuart Vanegas MD [Med Staff - Active Staff] - See Referral Note (Please call and schedule appointment to be seen within the next 2 weeks) Julian Brand Chi, MD [Primary Care Provider] - Within 2 Weeks Disposition Disposition (needs filled in before D/C Order can be placed): Home, Self Care Charges/Coding Visit Charges Inpatient E&M: 53778 Disch Hosp >30min
== END 2023-10-20 15:20 | disposition home or self-care (01) | DRG 603 ==
LOC: ED 15:14 → MS3 15:44
PROVIDERS: Admitting Provider Internal Medicine; Emergency Provider Student in an Organized Health Care Education/Training Program; PCP Family Medicine Geriatric Medicine; Visit Provider Internal Medicine
DX: L03.116 Cellulitis of left lower limb (principal); E87.1 Hypo-osmolality and hyponatremia; K50.90 Crohn's disease, unspecified, without complications; N39.0 Urinary tract infection, site not specified; I27.20 Pulmonary hypertension, unspecified; K74.60 Unspecified cirrhosis of liver; J44.9 Chronic obstructive pulmonary disease, unspecified; I48.91 Unspecified atrial fibrillation; I10 Essential (primary) hypertension; E03.9 Hypothyroidism, unspecified; G47.33 Obstructive sleep apnea (adult) (pediatric); D75.839 Thrombocytosis, unspecified; I89.0 Lymphedema, not elsewhere classified; M81.0 Age-related osteoporosis without current pathological fracture; G89.29 Other chronic pain; Z91.199 Patient's noncompliance with other medical treatment and regimen due to unspecified reason; Z79.01 Long term (current) use of anticoagulants; Z79.51 Long term (current) use of inhaled steroids; Z79.52 Long term (current) use of systemic steroids; Z79.899 Other long term (current) drug therapy; Z87.442 Personal history of urinary calculi; Z87.891 Personal history of nicotine dependence
CPT/HCPCS: 36415; 74177; 80048; 80053; 80076; 80202; 81001; 83605; 83690; 83735; 84100; 85025; 85610; 85730; 87040; 87641; 93970; 94640; 94668; 97162; 97166; 99252; 99284; Q9967; A4216; G0463; J2405

== ENCOUNTER → 2023-12-21 | Outpatient (CLI) | payer MEDICARE, OTHER, SELFPAY ==
[2023-12-21 15:50] LABS: T4 Free Direct 1.48 ng/dL (0.76-1.46); Thyroid Stim Hormone (TSH) 2.48 uIU/mL (0.358-3.74)
== END | disposition home or self-care (01) ==
LOC: POLAB3 14:11
PROVIDERS: Internal Medicine Cardiovascular Disease; PCP Family Medicine Geriatric Medicine; Visit Provider Nurse Practitioner Family
DX: I48.0 Paroxysmal atrial fibrillation (principal)
CPT/HCPCS: 80162; 84439; 84443

== ENCOUNTER → 2023-12-21 | Outpatient (CLI) | payer MEDICARE, OTHER, SELFPAY ==
--- NOTE | 2023-12-21 15:15 | RAD_ITS ---
STUDY: X-RAY - LEFT KNEE REASON FOR EXAM: Female, 68 years old. LEFT KNEE PAIN TECHNIQUE: 3 views of the left knee. COMPARISON: Left knee radiographs dated 02/02/2006. FINDINGS: There is a left total knee arthroplasty with patellar resurfacing. The orthopedic hardware components are intact. There is no periprosthetic fracture. There is a moderate to large left knee joint effusion. Normal proximal tibiofibular articulation. RAD/Knee 3 Views IMPRESSION: Left total knee arthroplasty, with no periprosthetic fracture. Moderate to large left knee joint effusion. Electronically Signed: Tom Clemente MD at 16:14 EDT ,
== END | disposition home or self-care (01) ==
LOC: RAD 14:59
PROVIDERS: PCP Family Medicine Geriatric Medicine; Referring Provider Family Medicine Geriatric Medicine; Visit Provider Family Medicine Geriatric Medicine
DX: M25.562 Pain in left knee (principal); I48.0 Paroxysmal atrial fibrillation
CPT/HCPCS: 73562; 80162; 84439; 84443

== ENCOUNTER 2024-02-05 17:37 | Inpatient (IN) | payer MEDICARE, OTHER, SELFPAY ==
[2024-02-05] VITALS (7 sets, daily range): BP systolic 95–157; BP diastolic 57–85; PULSE 18–93; RESP 17–92; TEMP 36.6–36.9; O2SAT 89–100; BMI 39.4; BMI 38.8
--- NOTE | 2024-02-05 17:51 | EKG12_ITS ---
Test Reason : Blood Pressure : / mmHG Vent. Rate : 089 BPM Atrial Rate : 089 BPM P-R Int : 164 ms QRS Dur : 084 ms QT Int : 330 ms P-R-T Axes : 056 043 042 degrees QTc Int : 401 ms Normal sinus rhythm Normal ECG Confirmed by Dewayne Perrin ([id number]), film editor ZULEMA BRISENO ([id number]) on 02/08/2024 11:21:53 AM Referred By: Confirmed By:Dewayne Perrin
[2024-02-05] MEDS: 0.9% Normal Saline (500mL Bag) 500 ML 1000 ML IV (18:09)
--- NOTE | 2024-02-05 18:16 | RAD_ITS ---
STUDY: X-RAY CHEST REASON FOR EXAM: Female, 68 years old. Cough and dyspnea TECHNIQUE: AP portable COMPARISON: May 11, 2022 FINDINGS: The lungs are clear and expanded. There is no demonstrated pleural abnormality. Normal size heart. Normal mediastinum and irena. Normal visualized pulmonary arteries. Tortuous mildly calcified aortic arch and descending thoracic aorta. Mediport catheter seen on the right with tip in the right atrium. Dorsal spine demonstrates degenerative change. Normal visualized ribs, clavicles, and shoulders. There is no demonstrated abnormality of the visualized soft tissue structures of the upper abdomen. RAD/Chest 1 View (Portable) IMPRESSION: No acute cardiopulmonary pathology Electronically Signed: Bang Roach MD at 18:32 EDT ,
[2024-02-05 18:22] LABS: Absolute Lymphocyte Count 0.28 X10^3/uL (0.83-4.51); Absolute Neutrophil Count 11.2 X10^3/uL (2.0-7.7); Basophil# 0.03 X10^3/uL; Basophil% 0.2 % (0-1); Hematocrit 41.2 % (37-47); Hemoglobin 12.7 g/dL (12.0-15.0); Lymphocyte # 0.28 X10^3/ul (0.83-4.51); Lymphocyte % 2.3 % (19-41); Mean Corp Hgb Conc 30.8 g/dL (32-36); Mean Corpuscular Hgb 30.3 pg (27.0-32.0); Mean Corpuscular Volume 98.3 fL (81-99); Mean Platelet Vol. 9.1 fl (6.2-12.0); Monocyte# 0.31 X10^3/uL; Monocyte% 2.6 % (0-10); NRBC Flagged by Analyzer 0 % (0-5); Neutrophil # 11.24 X10^3/uL (2.7-7.7); Neutrophil % 93.2 % (47-70); POSITIVE DIFFERENTIAL YES; Platelet Count 307 K/mm3 (150-450); RBC Distribution Width CV 15.2 % (11.6-14.6); RBC Distribution Width SD 54.4 fl (35.1-43.9); Red Blood Count 4.19 M/mm3 (4.2-5.4); White Blood Count 12.1 K/mm3 (4.4-11.0)
[2024-02-05 18:27] LABS: Differential Indicated SCAN CRITERIA MET
[2024-02-05 18:40] LABS: ALB/GLOB Ratio 0.9 RATIO (0.9-2.4); AST(SGOT) 10 U/L (15-37); Alanine Aminotransfer ALT/SGPT 13 U/L (13-56); Albumin, Serum 2.4 g/dL (3.2-5.0); Alkaline Phosphatase 43 U/L (45-117); Anion Gap 6 (5-15); BUN 39 mg/dL (7-18); BUN/Creat Ratio 23.9 RATIO (10-20); Chloride 101 mmol/L (98-107); Creatinine, Serum 1.63 mg/dL (0.55-1.02); EST Glomerular Filtration Rate 33 mL/min (>60); Est Glom Filt Rate - Afr Amer 40 mL/min (>60); Estimated Creatinine Clearance 39.14 ml/min; Globulin 2.8 g/dL (2.2-4.2); Glucose 165 mg/dL (74-106); Potassium 3.9 mmol/L (3.5-5.1); Protein, Total 5.2 g/dL (6.4-8.2); Sodium Level 139 mmol/L (136-145); Troponin-I HS 22 pg/mL (3.0-54.0)
[2024-02-05 18:41] LABS: Mucous, Urine 0 SEEN /hpf (<or=2+); Red Blood Cells-Urine 0 SEEN /hpf (0-5)
[2024-02-05 18:43] LABS: Color, Urine Yellow (Yellow); Glucose, Dipstick Normal (Normal); Ketone-Dipstick Negative (Negative); Leukocyte Esterase-Dipstick 25 /ul (Negative); Nitrite-Dipstick Negative (Negative); Occult Blood-Urine Negative /ul (Negative); Protein-Dipstick 30 mg/dl (Negative); Specific Gravity, Urine 1.025 (1.002-1.030); Urine Clarity Sl. Cloudy (Clear); Urine Urobilinogen 1 mg/dl (Normal)
[2024-02-05 18:44] LABS: Anisocytosis 1+; Macrocytosis 1+; Ovalocyte RARE; Platelet Estimate ADEQUATE (ADEQ); Red Cell Morphology N CHROM NORMAL (NORM C&C)
[2024-02-05 18:45] LABS: Urine Bilirubin Dipstick 3 mg/dL (Negative)
[2024-02-05 18:52] LABS: White Blood Cells 0-5 SEEN /hpf (0-5)
[2024-02-05 18:53] LABS: Bacteria RARE /hpf (None Seen); Squamous Epithelial Cells - UA 0-5 SEEN /hpf (5-10); Yeast-Urine RARE /hpf (None Seen)
--- NOTE | 2024-02-05 18:53 | EX.ED.DYSGE1 ---
HPI History of Present Illness Chief Complaint: Weakness Detail of Chief Complaint: Weakness I do not feel well. Informant: patient Onset/Context/Timing Onset: Yesterday Context: Sudden Onset Timing: Continuous Quality: Sense of unwellness Location: Unknown Current Severity: Unable to quantitate or qualitative Maximum Severity: Unable to quantitate or qualitative Worsened by: Lightheaded with standing Relieved by: Nothing Associated Symptoms Associated Symptoms: Absolutely no symptoms other than weakness and not feeling well Narrative Narrative: Patient is a 68-year-old woman. She has history of permanent immunosuppression receiving monthly IVIG injections. She missed her injection this past month. She denies fever, chills or night sweats. She denies weight gain or weight loss. She denies headache, visual, ocular auditory symptoms. She denies rhinorrhea, congestion, postnasal drainage or sore throat. She denies neck pain or neck stiffness. She denies chest pain. She denies dyspnea. She denies dyspnea on exertion. He denies orthopnea or PND compared to baseline. She denies cough. She states she coughs when she takes a deep breath otherwise negative. She denies abdominal pain, nausea, vomiting or diarrhea. She has chronic diarrhea due to irritable bowel syndrome. She has not had a bowel movement in 24 hours. She denied blood or mucus last time she used the restroom. She denies flank pain or lower abdominal pain. Denies dysuria, frequency, urgency or hematuria. If anything she has had decreased urine output. Prior similar symptoms: No Recent Illness/Hospitalization: No PFSH PFSH Medical History Hyperbilirubinemia Thrombocytosis Lymphedema Shakiness Fatigue Mild cognitive impairment Secondary hyperparathyroidism Secondary adrenal insufficiency Cellulitis of leg Hyponatremia Hyperparathyroidism Sacroiliitis Weight loss Unintentional weight loss Screening for colon cancer Left ureteral calculus Paroxysmal atrial fibrillation Essential hypertension Skin lesion Chronic pain Former smoker CPAP (continuous positive airway pressure) dependence Sleep apnea A-fib New onset a-fib History of echocardiogram Chronic bronchitis History of blood transfusion Pulmonary HTN Bone fracture Vitamin deficiency Skin cancer PNE Back problem Osteoporosis Osteopenia OA (osteoarthritis) Arthritis Gastrointestinal distress Gallstones COPD (chronic obstructive pulmonary disease) Anemia Seasonal allergies Pancreatic divisum Fibromyalgia Immunodeficiency disorder, selective immunoglobulin Asthma Crohns disease HTN (hypertension) GERD (gastroesophageal reflux disease) SARAHY (obstructive sleep apnea) Hypertension Home Medications ?Medication ?Instructions ?Recorded ?Last Taken ?Type pantoprazole 40 mg tablet,delayed 40 mg PO DAILY PRN Acid Reflux 05/29/20 10/18/23 History release diphenoxylate-atropine 2.5 5 tab PO DAILY Diarrhea/Loose 09/06/20 10/18/23 History mg-0.025 mg tablet Stools levothyroxine 50 mcg tablet 50 mcg PO DAILY thyroid 12/09/21 10/18/23 History ammonium lactate 12 % topical cream 1 applic topical BID dry legs 05/12/22 10/18/23 History sildenafil (pulm.hypertension) 20 20 mg PO TID Pulmonary HTN 05/12/22 Unknown History mg tablet budesonide-formoterol HFA 160 2 puff inhalation BID PRN SOB 09/24/22 10/18/23 History mcg-4.5 mcg/actuation aerosol inhaler (Symbicort) lidocaine 5 % topical patch 1 patch topical DAILY PRN pain 09/24/22 10/18/23 History metronidazole 0.75 % (37.5 mg/5 1 appful vaginal DAILY PRN vaginal 09/24/22 Unknown History gram) vaginal gel irritation Prolia 60 mg/mL subcutaneous 60 mg subcut [id number] #1 mL 12/22/22 Unknown Rx syringe (denosumab) valsartan 80 1 tab PO DAILY BP #90 tabs 05/29/23 Unknown Rx mg-hydrochlorothiazide 12.5 mg tablet rivaroxaban 20 mg tablet (Xarelto) 20 mg PO DAILY Please change 06/09/23 Unknown Rx quantity to 30 days #30 tabs digoxin 125 mcg (0.125 mg) tablet 125 mcg PO DAILY heart #90 tabs 08/24/23 10/18/23 Rx morphine 15 mg tablet,extended 15 mg PO TID PAIN 10/09/23 10/18/23 History release IVIG INFUSION 10/18/23 Unknown History loratadine 10 mg tablet (Allergy 10 mg PO DAILY PRN allergy symptoms 10/18/23 Unknown History Relief (loratadine)) montelukast 10 mg tablet 10 mg PO DAILY PRN pain 10/18/23 10/18/23 History amiodarone 200 mg tablet 100 mg PO Q24H ARRHYTHMIA 02/05/24 Unknown History baclofen 10 mg tablet 10 mg PO QHS 02/05/24 Unknown History cholecalciferol (vitamin D3) 25 25 mcg PO DAILY 02/05/24 Unknown History mcg (1,000 unit) capsule (Vitamin D3) prednisone 20 mg tablet 20 mg PO BID 02/05/24 Unknown History Allergy/AdvReac Type Severity Reaction Status Date / Time codeine Allergy Severe ANGIOEDEMA/LEG Verified 02/05/24 17:41 SWELLING Penicillins Allergy Severe ANGIOEDEMA/LEG Verified 02/05/24 17:41 SWELLING Sulfa (Sulfonamide Allergy Severe ANGIOEDEMA/LEG Verified 02/05/24 17:41 Antibiotics) SWELLING sulfasalazine (From Allergy Severe ANGIOEDEMA/LEG Verified 02/05/24 17:41 Azulfidine) SWELLING Family History Father Anemia Heart disease Hypertension CVA (cerebral vascular accident) Mother Arthritis Cancer Osteoporosis Sister Arthritis Lung disease Surgical History History of kyphoplasty (~07/07/16) Leg fracture, right History of left knee replacement History of tonsillectomy History of total hysterectomy with bilateral salpingo-oophorectomy (BSO) History of pneumonectomy History of resection of small bowel History of right heart catheterization (RHC) (~05/09/16) Social History Smoking Status: Former smoker how long ago did patient quit smokin second hand exposure: No alcohol intake: current alcohol intake frequency: other substance use type: does not use caffeine: Yes Type: carbonated beverages, coffee and tea what type of physical activity do you participate in: none seatbelt use: always 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 ROS ED Constitutional Constitutional ED: Denies chills, fever(s), subjective, sweats or weight loss Eyes Eyes: Denies blurry vision, change in vision or diplopia ENT ENT ED: Denies ear pain, rhinorrhea or sore throat Cardiovascular Cardiovascular: Denies chest pain, orthopnea, palpitations or paroxysmal nocturnal dyspnea Respiratory/Chest Respiratory/Chest: Denies cough, dyspnea, dyspnea on exertion, orthopnea, paroxysmal nocturnal dyspnea or sputum Gastrointestinal Gastrointestinal: Reports nausea; Denies abdominal pain, constipation, melena or vomiting Genitourinary Genitourinary ED: Denies dysuria, hematuria or urinary frequency Musculoskeletal Musculoskeletal: Denies arthralgias or myalgias Integumentary Denies abscess or rash Neurologic Neurologic: Reports weakness; Denies headache(s) or paresthesias Endocrine Endocrinology: Denies cold intolerance or heat intolerance Hematologic/Lymphatic Hematologic/Lymphatic: Reports systems reviewed and no addt'l complaints, except as documented; Denies easy bruising EXAM Physical Exam Const Vital Signs: 02/05/24 17:39 02/05/24 17:39 02/05/24 17:52 Temperature 98.2 F Temperature Source Oral Pulse Rate 18 L 92 Respiratory Rate 92 H 20 H Respiratory Effort Normal Respiratory Pattern Normal Blood Pressure 95/62 Blood Pressure Mean 73 Pulse Ox 93 89 Oxygen Delivery Method Room Air Room Air Oxygen Flow Rate (L/min) 02/05/24 17:53 02/05/24 19:01 02/05/24 19:01 Temperature Temperature Source Pulse Rate 93 89 88 Respiratory Rate 22 H 17 20 H Respiratory Effort Respiratory Pattern Blood Pressure 105/57 L 113/61 Blood Pressure Mean 73 78 Pulse Ox 100 98 100 Oxygen Delivery Method Nasal Cannula Nasal Cannula Nasal Cannula Oxygen Flow Rate (L/min) 2 2 2 02/05/24 19:13 Temperature 98 F Temperature Source Pulse Rate 89 Respiratory Rate 22 H Respiratory Effort Respiratory Pattern Blood Pressure 105/57 L Blood Pressure Mean 73 Pulse Ox 100 Oxygen Delivery Method Oxygen Flow Rate (L/min) Positive well nourished and well developed; Negative for unkempt Constitutional Narrative: BMI is 39.4 General Appearance ED: well developed and pallor; Negative for unkempt, cyanotic or diaphoretic HEENT Reports dry mucous membranes HEENT Narrative: Head is atraumatic normocephalic. Ears normal. Nares patent. TMs normal. Posterior pharynx is normal. Mouth ED: Yes dry mucous membranes Mouth: dry mucous membranes Eyes PERRL and EOMs intact bilaterally General Eye ED: Negative for pale conjunctiva or scleral icterus Neck no lymphadenopathy, supple and no JVD Chest Wall inspection of chest normal and palpation of chest normal Resp normal respiratory effort and clear to auscultation bilaterally Cardio regular rate, regular rhythm, S1 normal heart sound, S2 normal heart sound and no murmurs GI normal to inspection, nondistended, normoactive bowel sounds, non-tender, non-distended, hepatosplenomegaly and no masses Back/Spine no CVA tenderness Extremity Extremity Narrative: Significant lymphedema with venous stasis dermatitis. Neuro oriented x3, CN's II-XII intact bilaterally and no sensory deficits noted Sensorium / Orientation: alert Psych mental status grossly normal Appearance: Negative for unkempt Skin no wounds General Skin Exam: pallor; Negative for jaundice MDM MDM MDM Narrative Medical decision making narrative: Fact that she missed her IVIG injection need to assess for infectious etiology, metabolic etiology. Chest x-ray, UA and appropriate blood work was obtained. Prior records were reviewed. After reviewing records noted she has hypothyroidism. Will add TSH level. Lab Data Attestation: I reviewed the patient's lab results. Lab results narrative: White count is elevated with slight shift. There is no bandemia. Electrolyte panel is marked for BUN of 39 and a creatinine of 1.63. Her creatinine is doubled prior levels. Liver enzymes are unremarkable. Glucose is slightly elevated 165 with normal CO2 anion gap. Urine macro is positive for bilirubin, urobilinogen, leukoesterase and spec gravity is 1.025. Micro is pending. Labs: Laboratory Results - last 24 hr 02/05/24 02/05/24 18:11 18:37 WBC 12.1 H RBC 4.19 L Hgb 12.7 Hct 41.2 MCV 98.3 MCH 30.3 MCHC 30.8 L RDW Std Deviation 54.4 H RDW Coeff of [place] 15.2 H Plt Count 307 MPV 9.1 Immature Gran % (Auto) 1.700 H Neut % (Auto) 93.2 H Lymph % (Auto) 2.3 L [place] % (Auto) 2.6 Eos % (Auto) 0.0 Baso % (Auto) 0.2 Absolute Neuts (auto) 11.2 H Absolute Lymphs (auto) 0.28 L Nucleated RBC % 0 Differential Comment SEE COMMENT Platelet Estimate ADEQUATE RBC Morphology N CHROM Anisocytosis 1+ Macrocytosis 1+ Ovalocytes RARE Sodium 139 Potassium 3.9 Chloride 101 Carbon Dioxide 32.0 Anion Gap 6 BUN 39 H Creatinine 1.63 H Estim Creat Clear Calc 39.14 Est GFR (MDRD) Af Amer 40 L Est GFR (MDRD) Non-Af 33 L BUN/Creatinine Ratio 23.9 H Glucose 165 H Lactic Acid 1.8 Calcium 8.0 L Total Bilirubin 2.10 H AST 10 L ALT 13 Alkaline Phosphatase 43 L Troponin I High Sens 22 Total Protein 5.2 L Albumin 2.4 L Globulin 2.8 Albumin/Globulin Ratio 0.9 TSH 1.820 Urine Color Yellow Urine Clarity Sl. Cloudy Urine pH 5.0 Ur Specific [place] 1.025 Urine Protein 30 H Urine Glucose (UA) Normal Urine Ketones Negative Urine Occult Blood Negative Urine Nitrite Negative Urine Bilirubin 3 H Urine Urobilinogen 1 H Ur Leukocyte Esterase 25 H Urine RBC 0 SEEN Urine WBC 0-5 SEEN Ur Squamous Epith Cells 0-5 SEEN Urine Bacteria RARE Urine Mucus 0 SEEN Urine Yeast RARE Micro UA is unremarkable. Radiography Diagnostic Testing: Clinical Impression(s) from Imaging Studies Chest X-Ray 02/05/24 18:16 IMPRESSION: No acute cardiopulmonary pathology Electronically Signed: Bang Roach MD at 18:32 EDT , EKG Initial EKG: Attestation: I personally reviewed and interpreted this EKG as follows: Interpretation: Sinus Rhythm (Normal sinus rhythm rate 89. EKG is normal. [place] interval is under 64 ms per cures duration 84 ms per QT durations 130 ms. [place] is normal.) Management Discussion w/another healthcare provider: Hospitalist (Case discussed with Dr. Perla. Patient assigned to [facility] bed.) Treatment and Re-Evaluation :: Patient was hypotensive. 1 L of normal saline was ordered. Her pressure has improved with the fluid bolus. Discharge Plan Dx/Rx/DC Orders Clinical Impression: Acute hypotension, Crohns disease, Hypothyroidism, Essential hypertension, CHRISTINA (acute kidney injury), Nondiabetic hyperglycemia, Chronic diarrhea Disposition Disposition: [facility]
[2024-02-05 18:59] LABS: Lactic Acid 1.8 mmol/L (0.4-1.9)
--- NOTE | 2024-02-05 19:14 | HP.PCM.HOS_ITS ---
[facility] - General General Date of Admission: 02/05/24 Date of Service: 02/05/24 Chief Complaint: Generalized Weakness, Dehydration and Hypotension. HPI Narrative RAFIQ ALCANTAR, is a 68 F with a past medical history of essential hypertension, hypothyroidism, hyperparathyroidism, history of secondary adrenal insufficiency, obesity; with BMI of 39.4 this admission, chronic severe bilateral LE lymphedema, SARAHY; on CPAP, history of tobacco abuse; with chronic bronchitis, asthma, PAF; on Digoxin and Xarelto, Pulmonary Hypertension; on Sildenafil TID, history of Crohn's with small bowel resection x 2; with subsequent short-gut syndrome, chronic IBS; of diarrheal-type, history of pancreatic divisum, history of renal calculi, fibromyalgia, history of skin cancer, history of CONCEPCION/BSO, listed allergies to PCN and Sulfa (angioedema/leg swelling), GERD, osteoporosis; with history of kyphoplasty, history of sacroiliitis, OA; with chronic pain syndrome on ER Morphine TID and Chronic Immune Deficiency with Hypogammaglobulinemia causing recurrent and severe Pneumonia; s/p Left-sided lobectomy surgery on monthly IV-IgG injections (she states she missed this injection last month) who presents to [facility] ER complaining of generalized weakness, dehydration and hypotension. Ms. Alcantar reports her symptoms began one day prior to admission with the abrupt-onset of not feeling well. She also admits to lightheadedness with standing and coughing when she attempts to take a deep breath. She denies associated fever, chills, nausea, vomiting or chest pain but she does admit to not having a BM in the past 24 hours and she also admits to chronic, severe and recently worsening insomnia. In the ER she was noted to be hypotensive at 95/62 mmHg complicated by laboratory evidence of Dehydration with elevated serum creatinine of 1.63 mg/dL and BUN of 39 mg/dL present on admission compounded by mild Hyperbilirubinemia of 2.1 mg/dL and Leukocytosis of 12.1K present on admission thought to be due to acute stress response after missing her scheduled IV-IgG infusion and she was then admitted to the general medical floor under observation status for a stay that is expected to be less than 2 midnights. [facility] Medical History (Updated 02/05/24 @ 23:[address] Ridge de Michael, DO) Hyperbilirubinemia On home oxygen therapy Lymphedema Shakiness Fatigue Mild cognitive impairment Secondary hyperparathyroidism Secondary adrenal insufficiency Cellulitis of leg Hyponatremia Hyperparathyroidism Sacroiliitis Weight loss Unintentional weight loss Screening for colon cancer Left ureteral calculus Paroxysmal atrial fibrillation Essential hypertension Skin lesion Thrombocytosis Chronic pain Former smoker CPAP (continuous positive airway pressure) dependence Sleep apnea A-fib New onset a-fib History of echocardiogram Chronic bronchitis History of blood transfusion Pulmonary HTN Bone fracture Vitamin deficiency Skin cancer PNE Back problem Osteoporosis Osteopenia OA (osteoarthritis) Arthritis Gastrointestinal distress Gallstones COPD (chronic obstructive pulmonary disease) Anemia Seasonal allergies Pancreatic divisum Fibromyalgia Immunodeficiency disorder, selective immunoglobulin Asthma Crohns disease HTN (hypertension) GERD (gastroesophageal reflux disease) SARAHY (obstructive sleep apnea) Hypertension Home Medications ?Medication ?Instructions ?Recorded ?Last Taken ?Type pantoprazole 40 mg tablet,delayed 40 mg PO DAILY PRN Acid Reflux 05/29/20 10/18/23 History release diphenoxylate-atropine 2.5 5 tab PO DAILY Diarrhea/Loose 09/06/20 10/18/23 History mg-0.025 mg tablet Stools levothyroxine 50 mcg tablet 50 mcg PO DAILY thyroid 12/09/21 10/18/23 History ammonium lactate 12 % topical cream 1 applic topical BID dry legs 05/12/22 10/18/23 History sildenafil (pulm.hypertension) 20 20 mg PO TID Pulmonary HTN 05/12/22 Unknown History mg tablet budesonide-formoterol HFA 160 2 puff inhalation BID PRN SOB 09/24/22 10/18/23 History mcg-4.5 mcg/actuation aerosol inhaler (Symbicort) lidocaine 5 % topical patch 1 patch topical DAILY PRN pain 09/24/22 10/18/23 History metronidazole 0.75 % (37.5 mg/5 1 appful vaginal DAILY PRN vaginal 09/24/22 Unknown History gram) vaginal gel irritation Prolia 60 mg/mL subcutaneous 60 mg subcut [id number] #1 mL 12/22/22 Unknown Rx syringe (denosumab) valsartan 80 1 tab PO DAILY BP #90 tabs 05/29/23 Unknown Rx mg-hydrochlorothiazide 12.5 mg tablet rivaroxaban 20 mg tablet (Xarelto) 20 mg PO DAILY Please change 06/09/23 Unknown Rx quantity to 30 days #30 tabs digoxin 125 mcg (0.125 mg) tablet 125 mcg PO DAILY heart #90 tabs 08/24/23 10/18/23 Rx morphine 15 mg tablet,extended 15 mg PO TID PAIN 10/09/23 10/18/23 History release IVIG INFUSION 10/18/23 Unknown History loratadine 10 mg tablet (Allergy 10 mg PO DAILY PRN allergy symptoms 10/18/23 Unknown History Relief (loratadine)) montelukast 10 mg tablet 10 mg PO DAILY PRN pain 10/18/23 10/18/23 History amiodarone 200 mg tablet 100 mg PO Q24H ARRHYTHMIA 02/05/24 Unknown History baclofen 10 mg tablet 10 mg PO QHS 02/05/24 Unknown History cholecalciferol (vitamin D3) 25 25 mcg PO DAILY 02/05/24 Unknown History mcg (1,000 unit) capsule (Vitamin D3) prednisone 20 mg tablet 20 mg PO BID 02/05/24 Unknown History Allergy/AdvReac Type Severity Reaction Status Date / Time codeine Allergy Severe ANGIOEDEMA/LEG Verified 02/05/24 17:41 SWELLING Penicillins Allergy Severe ANGIOEDEMA/LEG Verified 02/05/24 17:41 SWELLING Sulfa (Sulfonamide Allergy Severe ANGIOEDEMA/LEG Verified 02/05/24 17:41 Antibiotics) SWELLING sulfasalazine (From Allergy Severe ANGIOEDEMA/LEG Verified 02/05/24 17:41 Azulfidine) SWELLING Family History Father Anemia Heart disease Hypertension CVA (cerebral vascular accident) Mother Arthritis Cancer Osteoporosis Sister Arthritis Lung disease Surgical History History of appendectomy History of kyphoplasty (~07/07/16) Leg fracture, right History of left knee replacement History of tonsillectomy History of total hysterectomy with bilateral salpingo-oophorectomy (BSO) History of pneumonectomy History of resection of small bowel History of right heart catheterization (RHC) (~05/09/16) Social History Smoking Status: Former smoker how long ago did patient quit smokin second hand exposure: No alcohol intake: current alcohol intake frequency: other substance use type: does not use caffeine: Yes Type: carbonated beverages, coffee and tea what type of physical activity do you participate in: none seatbelt use: always 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 ROS Narrative Review of Systems: Constitutional: Patient denies fever or chills. Eyes: Patient denies changes in vision or discharge from eyes. ENT: Patient denies runny nose, sore throat or ear pain. Resp: Patient denies SOB or cough. CV: Patient denies chest pain, palpitations or heart racing. GI: Patient admit to nausea but she denies vomiting, abdominal pain or diarrhea. : Patient denies dysuria, hematuria or urinary hesitancy/frequency. MSK: Patient admits to generalized weakness but she denies myalgias or arthralgias. Skin: Patient has bilateral LE lymphedema with chronic venous stasis changes. Psych: Patient admits to severe insomnia but she denies symptoms of uncontrolled depression or anxiety. Neuro: Patient denies headache, paresthesias or focal neurologic deficits. Allergy: Patient denies lip swelling or tongue swelling. Hematology: Patient denies easy bleeding or easy bruisability. Endocrinology: Patient denies polyuria, polydipsia or polyphagia. 14 point ROS otherwise negative except for positives noted above in HPI. Vital Signs Vital Signs Vital Signs: 02/05/24 17:39 02/05/24 17:39 02/05/24 17:52 Temperature 98.2 F Temperature Source Oral Pulse Rate 18 L 92 Respiratory Rate 92 H 20 H Respiratory Effort Normal Respiratory Pattern Normal Blood Pressure 95/62 Blood Pressure Mean 73 Pulse Ox 93 89 Oxygen Delivery Method Room Air Room Air Oxygen Flow Rate (L/min) 02/05/24 17:53 02/05/24 19:01 02/05/24 19:01 Temperature Temperature Source Pulse Rate 93 89 88 Respiratory Rate 22 H 17 20 H Respiratory Effort Respiratory Pattern Blood Pressure 105/57 L 113/61 Blood Pressure Mean 73 78 Pulse Ox 100 98 100 Oxygen Delivery Method Nasal Cannula Nasal Cannula Nasal Cannula Oxygen Flow Rate (L/min) 2 2 2 Weight Weight: 237 lb Body Mass Index (BMI) 39.4 Physical Exam Const alert, oriented x3 and no apparent distress Constitutional Narrative: Morbidly obese with chronically ill appearance. General Appearance: cooperative HEENT normocephalic, head/scalp atraumatic and hearing grossly normal bilaterally HEENT Narrative: Mucous membranes dry. Eyes PERRL and EOMs intact bilaterally Neck no lymphadenopathy and supple Resp normal respiratory effort, no retractions, no use of accessory muscles and clear to auscultation bilaterally Cardio regular rate and regular rhythm GI normal to inspection, nondistended, normoactive bowel sounds, soft to palpation, non-tender and non-distended GI Narrative: Morbidly obese. Extremity Extremity Narrative: Patient has 4+ bilateral LE edema with chronic venous stasis changes. Skin Skin Narrative: Patient has 4+ bilateral LE edema with chronic venous stasis changes. Neuro oriented x3, CN's II-XII intact bilaterally, moves all extremities and no focal motor deficits Sensorium / Orientation: awake, alert, oriented to person, oriented to place and oriented to time Speech: speech normal Psych affect normal Results Medical Records Data Attestation: I reviewed the patient's medical records Lab / Micro Data Attestation: I reviewed the patient's lab results. 02/05/24 18:11 02/05/24 18:11 Labs: Laboratory Results - last 24 hr 02/05/24 18:11: WBC 12.1 H, RBC 4.19 L, Hgb 12.7, Hct 41.2, MCV 98.3, MCH 30.3, MCHC 30.8 L, RDW Std Deviation 54.4 H, RDW Coeff of Curtis 15.2 H, Plt Count 307, MPV 9.1, Immature Gran % (Auto) 1.700 H, Neut % (Auto) 93.2 H, Lymph % (Auto) 2.3 L, [place] % (Auto) 2.6, Eos % (Auto) 0.0, Baso % (Auto) 0.2, Absolute Neuts (auto) 11.2 H, Absolute Lymphs (auto) 0.28 L, Nucleated RBC % 0, Differential Comment SEE COMMENT, Platelet Estimate ADEQUATE, RBC Morphology N CHROM, Anisocytosis 1+, Macrocytosis 1+, Ovalocytes RARE, Sodium 139, Potassium 3.9, Chloride 101, Carbon Dioxide 32.0, Anion Gap 6, BUN 39 H, Creatinine 1.63 H, Estim Creat Clear Calc 39.14, Est GFR (MDRD) Af Amer 40 L, Est GFR (MDRD) Non-Af 33 L, BUN/Creatinine Ratio 23.9 H, Glucose 165 H, Lactic Acid 1.8, Calcium 8.0 L , Total Bilirubin 2.10 H, AST 10 L, ALT 13, Alkaline Phosphatase 43 L, Troponin I High Sens 22, Total Protein 5.2 L, Albumin 2.4 L, Globulin 2.8, Albumin/Globulin Ratio 0.9 02/05/24 18:37: Urine Color Yellow, Urine Clarity Sl. Cloudy, Urine pH 5.0, Ur Specific Ruffin 1.025, Urine Protein 30 H, Urine Glucose (UA) Normal, Urine Ketones Negative, Urine Occult Blood Negative, Urine Nitrite Negative, Urine Bilirubin 3 H, Urine Urobilinogen 1 H, Ur Leukocyte Esterase 25 H, Urine RBC 0 SEEN, Urine WBC 0-5 SEEN, Ur Squamous Epith Cells 0-5 SEEN, Urine Bacteria RARE, Urine Mucus 0 SEEN, Urine Yeast RARE Imaging Radiology Impression Chest X-Ray 02/05/24 18:16 IMPRESSION: No acute cardiopulmonary pathology Electronically Signed: Bang Roach MD at 18:32 EDT Reading Location ID and State: [facility] / [place] Tel , Service support , Assessment & Plan Assessment/Plan (1) Hypotension: QUALIFIERS: Hypotension type: unspecified hypotension type Q ualified Code(s): I95.9 - Hypotension, unspecified (2) Dehydration: (3) Adverse drug reaction: QUALIFIERS: Encounter type: initial encounter Qualified Code(s): T50.905A - Adverse effect of unspecified drugs, medicaments and biological substances, initial encounter (4) CHRISTINA (acute kidney injury): (5) Leukocytosis: QUALIFIERS: Leukocytosis type: unspecified Qualified Code(s): D 72.829 - Elevated white blood cell count, unspecified (6) Hyperbilirubinemia: (7) Morbid obesity with BMI of 40.0-44.9, adult: (8) History of pulmonary embolism: (9) Lymphedema: PLAN: Plan 1. Hypotensive at 95/62 mmHg complicated by laboratory evidence of Dehydration with elevated serum creatinine of 1.63 mg/dL and BUN of 39 mg/dL present on admission - Admit to general medical floor under observation status. Volume resuscitate and then recheck renal indices in AM to ensure improvement. We will also minimize any potentially nephrotoxic agents. 2. Mild Hyperbilirubinemia of 2.1 mg/dL and Leukocytosis of 12.1K present on admission thought to be due to acute stress response after missing her scheduled IV-IgG infusion used to treat her Hypogammaglobulinemia which caused recurrent severe Pneumonias complicating #1 - Resume supportive care and recheck CMP in AM to assess impact of conservative treatment outlined in plan. Patient also encouraged to get her IV-IgG infusions done as scheduled to prevent a recurrence of another severe pulmonary infection. 3. Adverse Drug Reaction to Valsartan/HCTZ compounding #1 & #2 - Hold this agent for now and consider a less potentially nephrotoxic alternative. 4. Obesity; with BMI of 39.4 this admission plus Severe LE Lymphedema bilaterally and SARAHY; on CPAP and adding to the complexity of #1 - #3 - Weight loss will be recommended. Resume nocturnal CPAP as previous. 5. Severe Chronic Insomnia that has acutely worsened adding to the burden of disease in #1 - #4 likely due to chronic opiate use disturbing sleep architecture - Give scheduled Temazepam 15 mg PO q HS and Melatonin 3 mg PO q HS to help patient both initiate sleep and maintain sleep respectively. 6. OA; with chronic pain syndrome on ER Morphine TID likely primary factor causing #5 - Noted. Current regimen to continue as previous. 7. Essential hypertension - Hold scheduled antihypertensives in light of #1. 8. Hypothyroidism - Resume Synthroid at current dose and check TSH. 9. History of Hyperparathyroidism - Noted. 10. History of secondary adrenal insufficiency - Noted. 11. History of tobacco abuse; with chronic bronchitis and asthma - Stable. 12. PAF; on Digoxin and Xarelto along with history of PE - Patient currently in NSR. Check digoxin level to evaluate for potential toxicity. 13. Pulmonary Hypertension; on Sildenafil TID - Maintain Sildenafil as previous. 14. History of Crohn's with small bowel resection x 2; with subsequent short- gut syndrome and chronic IBS; of diarrheal-type - Stable. 15. History of pancreatic divisum - Noted. 16. History of renal calculi - Stable with no evidence of recurrence at this time. 17. Fibromyalgia - Stable. 18. History of skin cancer - Noted. 19. History of CONCEPCION/BSO - Noted. 20. Listed allergies to PCN and Sulfa (angioedema/leg swelling) - We will avoid these classes of agents. 21. GERD - Continue PPI. 22. Osteoporosis; with history of kyphoplasty - Stable. 23. History of sacroiliitis - Noted. 24. DVT prophylaxis - Patient already on Xarelto for #12 which will be continued. Total time: Approximately 85 minutes. Charges/Coding Visit Charges OBSV E&M: [id number] Observ/hosp same date L3
--- NOTE | 2024-02-05 22:38 | NURSING ---
verified med list with pt
[2024-02-05] MEDS: morphine SR 15 MG Tablet PO (23:51)
[2024-02-05] MEDS: 0.9% Saline Lock 10 ML Syringe IV (23:51)
[2024-02-05] MEDS: SILDENAFIL CITRATE 20 MG TABLET PO (23:51)
[2024-02-05] MEDS: Temazepam 15 MG Capsule PO (23:52)
[2024-02-05] MEDS: Baclofen 10 MG Tablet PO (23:53)
[2024-02-05] MEDS: 0.9% Normal Saline (1000mL) 1,000 ML 70 ML IV (23:53)
[2024-02-05] MEDS: Ammonium Lactate 225 gm Bottle 1 APPLIC TOPICAL (23:55)
[2024-02-06] VITALS (15 sets, daily range): BP systolic 110–140; BP diastolic 60–70; PULSE 68–104; RESP 16–18; TEMP 36.3–37; O2SAT 82–100; BMI 39.0
[2024-02-06 02:35] LABS: Digoxin Level 1.86 ng/mL (0.80-2.00)
[2024-02-06 06:27] LABS: Absolute Lymphocyte Count 0.77 X10^3/uL (0.83-4.51); Basophil# 0.04 X10^3/uL; Basophil% 0.4 % (0-1); Eosinophil# 0.03 X10^3/uL; Eosinophils% 0.3 % (0-5); Hematocrit 38.6 % (37-47); Hemoglobin 11.7 g/dL (12.0-15.0); Lymphocyte # 0.77 X10^3/ul (0.83-4.51); Lymphocyte % 6.9 % (19-41); Mean Corp Hgb Conc 30.3 g/dL (32-36); Mean Corpuscular Hgb 30.2 pg (27.0-32.0); Mean Corpuscular Volume 99.5 fL (81-99); Mean Platelet Vol. 9.2 fl (6.2-12.0); Monocyte# 1.02 X10^3/uL; Monocyte% 9.2 % (0-10); NRBC Flagged by Analyzer 0 % (0-5); Neutrophil # 8.98 X10^3/uL (2.7-7.7); Neutrophil % 80.6 % (47-70); Platelet Count 304 K/mm3 (150-450); RBC Distribution Width CV 15.1 % (11.6-14.6); RBC Distribution Width SD 55.8 fl (35.1-43.9); Red Blood Count 3.88 M/mm3 (4.2-5.4); White Blood Count 11.1 K/mm3 (4.4-11.0)
[2024-02-06] MEDS: SILDENAFIL CITRATE 20 MG TABLET PO ×3 (06:38→22:45)
[2024-02-06] MEDS: morphine SR 15 MG Tablet PO ×3 (06:38→22:45)
[2024-02-06] MEDS: Levothyroxine 50 MCG Tablet PO (06:38)
[2024-02-06 07:01] LABS: ALB/GLOB Ratio 0.8 RATIO (0.9-2.4); AST(SGOT) 8 U/L (15-37); Alanine Aminotransfer ALT/SGPT 11 U/L (13-56); Albumin, Serum 2.2 g/dL (3.2-5.0); Alkaline Phosphatase 37 U/L (45-117); Anion Gap 3 (5-15); BUN 38 mg/dL (7-18); BUN/Creat Ratio 29.2 RATIO (10-20); Calcium,Total 7.7 mg/dL (8.5-10.1); Chloride 102 mmol/L (98-107); EST Glomerular Filtration Rate 43 mL/min (>60); Est Glom Filt Rate - Afr Amer 52 mL/min (>60); Estimated Creatinine Clearance 50.51 ml/min; Globulin 2.6 g/dL (2.2-4.2); Glucose 132 mg/dL (74-106); Magnesium 2.3 mg/dL (1.6-2.6); Phosphorus 2.4 mg/dL (2.5-4.9); Protein, Total 4.8 g/dL (6.4-8.2); Sodium Level 137 mmol/L (136-145); Thyroid Stim Hormone (TSH) 0.996 uIU/mL (0.358-3.740)
--- NOTE | 2024-02-06 07:41 | PN.HOSP_ITS ---
Reason for Visit Reason for Visit: Diagnoses Elevated white blood cell count, unspecified (02/05/24) Morbid (severe) obesity due to excess calories (02/05/24) Other disorders of bilirubin metabolism (02/05/24) Dehydration (02/05/24) Lymphedema, not elsewhere classified (02/05/24) Hypotension, unspecified (02/05/24) Acute kidney failure, unspecified (02/05/24) Adverse effect of unspecified drugs, medicaments and biological substances, initial encounter (02/05/24) Body mass index [BMI] 40.0-44.9, adult (02/05/24) Personal history of pulmonary embolism (02/05/24) Objective Data Objective Data Vital Signs: Vital Signs Temp Pulse Resp BP Pulse Ox O2 Del Method O2 Flow Rate 98.3 F 68 18 121/66 H 100 Nasal Cannula 2 02/06/24 06:30 02/06/24 06:30 02/06/24 06:30 02/06/24 06:30 02/06/24 06:30 02/06/24 06:30 02/06/24 06:30 Oxygen Flow Rate (L/min) 2 Oxygen Delivery Method Nasal Cannula Weight: 241 lb 13.553 oz Body Mass Index (BMI) 39.0 Intake & Output: Intake and Output for Last 24 Hours 02/04/24 02/05/24 02/06/24 23:59 23:59 23:59 Intake Total 500 / 500 Output Total 100 / 100 300 / 300 Balance 400 / 400 -300 / -300 Lab / Micro Data 02/06/24 05:40 02/06/24 05:40 Labs: Laboratory Results - last 24 hr 02/05/24 18:11: WBC 12.1 H, RBC 4.19 L, Hgb 12.7, Hct 41.2, MCV 98.3, MCH 30.3, MCHC 30.8 L, RDW Std Deviation 54.4 H, RDW Coeff of Curtis 15.2 H, Plt Count 307, MPV 9.1, Immature Gran % (Auto) 1.700 H, Neut % (Auto) 93.2 H, Lymph % (Auto) 2.3 L, [place] % (Auto) 2.6, Eos % (Auto) 0.0, Baso % (Auto) 0.2, Absolute Neuts (auto) 11.2 H, Absolute Lymphs (auto) 0.28 L, Nucleated RBC % 0, Differential Comment SEE COMMENT, Platelet Estimate ADEQUATE, RBC Morphology N CHROM, Anisocytosis 1+, Macrocytosis 1+, Ovalocytes RARE, Sodium 139, Potassium 3.9, Chloride 101, Carbon Dioxide 32.0, Anion Gap 6, BUN 39 H, Creatinine 1.63 H, Estim Creat Clear Calc 39.14, Est GFR (MDRD) Af Amer 40 L, Est GFR (MDRD) Non-Af 33 L, BUN/Creatinine Ratio 23.9 H, Glucose 165 H, Lactic Acid 1.8, Calcium 8.0 L, Total Bilirubin 2.10 H, AST 10 L, ALT 13, A lkaline Phosphatase 43 L, Troponin I High Sens 22, Total Protein 5.2 L, Albumin 2.4 L, Globulin 2.8, Albumin/Globulin Ratio 0.9, TSH 1.820 02/05/24 18:37: Urine Color Yellow, Urine Clarity Sl. Cloudy, Urine pH 5.0, Ur Specific [place] 1.025, Urine Protein 30 H, Urine Glucose (UA) Normal, Urine Ketones Negative, Urine Occult Blood Negative, Urine Nitrite Negative, Urine Bilirubin 3 H, Urine Urobilinogen 1 H, Ur Leukocyte Esterase 25 H, Urine RBC 0 SEEN, Urine WBC 0-5 SEEN, Ur Squamous Epith Cells 0-5 SEEN, Urine Bacteria RARE, Urine Mucus 0 SEEN, Urine Yeast RARE 02/06/24 01:35: Digoxin 1.86 02/06/24 05:40: WBC 11.1 H, RBC 3.88 L, Hgb 11.7 L, Hct 38.6, MCV 99.5 H, MCH 30.2, MCHC 30.3 L, RDW Std Deviation 55.8 H, RDW Coeff of Curtis 15.1 H, Plt Count 304, MPV 9.2, Immature Gran % (Auto) 2.600 H, Neut % (Auto) 80.6 H, Lymph % (Auto) 6.9 L, [place] % (Auto) 9.2, Eos % (Auto) 0.3, Baso % (Auto) 0.4, Absolute Neuts (auto) 9.0 H, Absolute Lymphs (auto) 0.77 L, Nucleated RBC % 0, Sodium 137, Potassium 4.0, Chloride 102, Carbon Dioxide 32.0, Anion Gap 3 L, BUN 38 H, Creatinine 1.30 H, Estim Creat Clear Calc 50.51, Est GFR (MDRD) Af Amer 52 L, E st GFR (MDRD) Non-Af 43 L, BUN/Creatinine Ratio 29.2 H, Glucose 132 H, Calcium 7.7 L, Phosphorus 2.4 L, Magnesium 2.3, Total Bilirubin 1.40 H, AST 8 L, ALT 11 L, Alkaline Phosphatase 37 L, Total Protein 4.8 L, Albumin 2.2 L, Globulin 2.6, Albumin/Globulin Ratio 0.8 L, TSH 0.996 Radiography Diagnostic Testing: Radiology Impression Chest X-Ray 02/05/24 18:16 IMPRESSION: No acute cardiopulmonary pathology Electronically Signed: Bang Roach MD at 18:32 EDT , Physical Exam Narrative Seen and examined. Patient has chronic fatigue ongoing for 1 month. No fever or chills. Mild increase in shortness of breath on exertion and wheezing General: Alert, Oriented x3, Cooperative HEENT: Atraumatic, PERRLA, EOMI, Normocephalic Oral: No Gingival or Mucosal Lesions/ Ulcerations Neck: Supple, No JVD, Negative Carotid Bruits Chest wall/Lungs: Air entry diminished in bilateral lungs. Bilateral bronchial breathing. Bilateral coarse wheezing at the end of expiration even without auscultation Cardiovascular: Regular rate, Regular Rhythm, Normal S1, Normal S2, No M/G/R Abdomen: Bowel Sounds Present, Soft, Non Tender, Non-Distended. Multiple surgical scars. : No dysuria. No renal angle tenderness. No suprapubic tenderness. Extremities: Chronic bilateral lymphedema uses lymphedema pump, chronic fibrosis and thickening of subcutaneous tissue of lower legs. Capillary Refill Less than 3 Seconds Skin: No rashes, No breakdown Musculoskeletal: No Tenderness to Palpation of Joints or Extremities Neurological: Cranial nerves II-XII grossly intact, DTR 2+/4. No acute focal neurological deficit. Psych/Mental Status: Flat affect Assessment & Plan Assessment/Plan (1) Hypotension: QUALIFIERS: Hypotension type: unspecified hypotension type Q ualified Code(s): I95.9 - Hypotension, unspecified (2) CHRISTINA (acute kidney injury): (3) Morbid obesity with BMI of 40.0-44.9, adult: (4) History of pulmonary embolism: PLAN: Plan 68-year-old female was admitted for generalized weakness with abrupt onset of not feeling well, dehydration and hypotension, lightheadedness with standing and coughing for 1 day prior to admission. Multiple chronic medical diagnoses/conditions 1. CHRISTINA most likely prerenal due to hypotension, BP 95/62 mmHg complicated by laboratory evidence of Dehydration with elevated serum creatinine of 1.63 mg/dL and BUN of 39 mg/dL present on admission - Admit to general medical floor under observation status. Volume resuscitate and then recheck renal indices in AM to ensure improvement. Avoid nephrotoxic medications. Baseline creatinine 0.83. Today, 1.30. BP 121/66, hypotension is resolved. Mild hypophosphatemia, Neutra-Phos ordered. Serum magnesium normal. 2. Chronic liver disease: . Patient baseline total bilirubin is around 2.0 but variable. Admitted with 2.1 most recent 1.3. Direct bilirubin ordered. Last seen in the GI office was April 2023. 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 02/05: Exact etiology of chronic liver disease is unclear patient was recommended liver biopsy during previous GI office visit with Dr. Redman. Suspected etiologies may be MASLD, chronic granulomatous disease/autoimmune disease. Last CT scan of September 2023 does not show cirrhotic nodular appearance of liver. Platelet count also normal. TB 2.1, improved to 1.4. ALT, AST and ALP low. A/G ratio 0.8. 3. Adverse Drug Reaction to Valsartan/HCTZ - Hold this agent for now and consider a less potentially nephrotoxic alternative. 4. Obesity; with BMI of 39.4 this admission plus Severe LE Lymphedema bilaterally and SARAHY; on CPAP- Weight loss will be recommended. Resume nocturnal CPAP as previous. Patient uses lymphedema pump at home 5. Severe Chronic Insomnia that has acutely worsened likely due to chronic opiate use disturbing sleep architecture - Give scheduled Temazepam 15 mg PO q HS and Melatonin 3 mg PO q HS to help patient both initiate sleep and maintain sleep respectively. 6. OA; with chronic pain syndrome on ER Morphine TID likely primary factor causing #5 - Noted. Current regimen to continue as previous. 7. Essential hypertension - Hold scheduled antihypertensives due to hypotension 8. Hypothyroidism - Resume Synthroid at current dose. TSH 0.99 on low normal. Her TSH level has been fluctuant between 0.73- 3.14 last 9 months. 9. History of Hyperparathyroidism - Noted. 10. History of secondary adrenal insufficiency - Noted. 11. History of tobacco abuse; with chronic bronchitis and asthma - Stable. 12. PAF; on Digoxin and Xarelto along with history of PE - Patient currently in NSR. Check digoxin level to evaluate for potential toxicity. 13. Pulmonary Hypertension; on Sildenafil TID - Maintain Sildenafil as previous. 14. History of Crohn's with small bowel resection x 2; with subsequent short- gut syndrome and chronic IBS; of diarrheal-type - Stable. She had last CT scan in September 2023 which showed right hemicolectomy. Normal liver multiple gallstones. Normal spleen and dilated ducts of the pancreas. She was last seen by Dr. Redman in the GI office in April 2023 at that time MRI enterography was suggested. 15. History of pancreatic divisum - Noted. 16. History of renal calculi - Stable with no evidence of recurrence at this time. 17. Fibromyalgia - 18. History of skin cancer - Noted. 19. History of CONCEPCION/BSO - Noted. 20. Listed allergies to PCN and Sulfa (angioedema/leg swelling) - We will avoid these classes of agents. 21. GERD - Continue PPI. 22. Osteoporosis; with history of kyphoplasty - Stable. 23. History of sacroiliitis - Noted. 24. DVT prophylaxis - Patient already on Xarelto, continue continued. Laboratory Results 02/05/24 18:11: WBC 12.1 H, RBC 4.19 L, Hgb 12.7, Hct 41.2, MCV 98.3, MCH 30.3, MCHC 30.8 L, RDW Std Deviation 54.4 H, RDW Coeff of Curtis 15.2 H, Plt Count 307, MPV 9.1, Immature Gran % (Auto) 1.700 H, Neut % (Auto) 93.2 H, Lymph % (Auto) 2.3 L, [place] % (Auto) 2.6, Eos % (Auto) 0.0, Baso % (Auto) 0.2, Absolute Neuts (auto) 11.2 H, Absolute Lymphs (auto) 0.28 L, Nucleated RBC % 0, Differential Comment SEE COMMENT, Platelet Estimate ADEQUATE, RBC Morphology N CHROM, Anisocytosis 1+, Macrocytosis 1+, Ovalocytes RARE, Sodium 139, Potassium 3.9, Chloride 101, Carbon Dioxide 32.0, Anion Gap 6, BUN 39 H, Creatinine 1.63 H, Estim Creat Clear Calc 39.14, Est GFR (MDRD) Af Amer 40 L, Est GFR (MDRD) Non-Af 33 L, BUN/Creatinine Ratio 23.9 H, Glucose 165 H, Lactic Acid 1.8, Calcium 8.0 L, Total Bilirubin 2.10 H, AST 10 L, ALT 13, Alkaline Phosphatase 43 L, Troponin I High Sens 22, Total Protein 5.2 L, Albumin 2.4 L, Globulin 2.8, Albumin/Globulin Ratio 0.9, TSH 1.820 02/05/24 18:37: Urine Color Yellow, Urine Clarity Sl. Cloudy, Urine pH 5.0, Ur Specific [place] 1.025, Urine Protein 30 H, Urine Glucose (UA) Normal, Urine Ketones Negative, Urine Occult Blood Negative, Urine Nitrite Negative, Urine Bilirubin 3 H, Urine Urobilinogen 1 H, Ur Leukocyte Esterase 25 H, Urine RBC 0 SEEN, Urine WBC 0-5 SEEN, Ur Squamous Epith Cells 0-5 SEEN, Urine Bacteria RARE, Urine Mucus 0 SEEN, Urine Yeast RARE 02/06/24 01:35: Digoxin 1.86 02/06/24 05:40: WBC 11.1 H, RBC 3.88 L, Hgb 11.7 L, Hct 38.6, MCV 99.5 H, MCH 30.2, MCHC 30.3 L, RDW Std Deviation 55.8 H, RDW Coeff of Curtis 15.1 H, Plt Count 304, MPV 9.2, Immature Gran % (Auto) 2.600 H, Neut % (Auto) 80.6 H, Lymph % (Auto) 6.9 L, [place] % (Auto) 9.2, Eos % (Auto) 0.3, Baso % (Auto) 0.4, Absolute Neuts (auto) 9.0 H, Absolute Lymphs (auto) 0.77 L, Nucleated RBC % 0, Sodium 137, Potassium 4.0, Chloride 102, Carbon Dioxide 32.0, Anion Gap 3 L, BUN 38 H, Creatinine 1.30 H, Estim Creat Clear Calc 50.51, Est GFR (MDRD) Af Amer 52 L, Est GFR (MDRD) Non-Af 43 L, BUN/Creatinine Ratio 29.2 H, Glucose 132 H, C alcium 7.7 L, Phosphorus 2.4 L, Magnesium 2.3, Total Bilirubin 1.40 H, AST 8 L, ALT 11 L, Alkaline Phosphatase 37 L, Total Protein 4.8 L, Albumin 2.2 L, Globulin 2.6, Albumin/Globulin Ratio 0.8 L, TSH 0.996 02/06/24 08:09: PT 18.0 H, INR 1.5, Direct Bilirubin 0.36 H Charges/Coding Visit Charges Inpatient E&M: 77524 Subs Hosp L2
[2024-02-06] MEDS: Amiodarone 200 MG Tablet 100 MG PO (08:15)
[2024-02-06] MEDS: predniSONE 20 MG Tablet PO ×2 (08:15→16:41)
[2024-02-06 08:59] LABS: Bilirubin, Direct 0.36 mg/dL (0.00-0.30)
[2024-02-06 09:03] LABS: International Normalized Ratio 1.5
[2024-02-06] MEDS: Cholecalciferol (VIT D3) 25 MCG TABLET (1,000 UNITS) PO (09:13)
[2024-02-06] MEDS: Digoxin 125 MCG Tablet PO (09:13)
[2024-02-06] MEDS: Diphenoxylate/Atrop 1 Tablet 5 TABLET PO (09:18)
[2024-02-06] MEDS: FLU VACCINE **HIGH DOSE** TV 24-25 180 MCG/0.5 ML SYRINGE IM (10:20)
--- NOTE | 2024-02-06 11:51 | CASEMGMT ---
Noted pt ambulated 5 ft with therapy and PT is recommending home PT. MOHSEN MCGARRY into pt room, pt sitting up in chair in no distress on RA. Pt states she lives in a condo with [facility]. States she has been unsteady and dizzy the last couple of weeks. She has had someone come over to be present while she bathes for safety. Pt states she cannot leave her home any more d/t her lymphedema. She has pumps that she is supposed to be using 3x/day but has difficulty getting them put on so she does not use as ordered. Pt states she orders all of her groceries and meals for delivery and calls someone to come put them away for her. Pt has a quad cane and walker that is available to her. Pt has a port that she gets IVIG monthly but has had to skip d/t difficulty getting there. Pt has had [facility] in the past. She states everyone was nice but she does not see the value in it and does not feel it is helpful to her. She denies need for this upon dc. Pt has been to [facility] and pt states she does not know what she needs right now. She would like to have more answers medically. Updated SW. MOHSEN MCGARRY to follow.
[2024-02-06] MEDS: Ipratropium/Albuterol Sulfate 3 ML AMPUL.NEB INHALATION (13:43)
[2024-02-06] MEDS: 0.9% Normal Saline (1000mL) 1,000 ML 70 ML IV (14:03)
--- NOTE | 2024-02-06 14:18 | CASEMGMT ---
MOHSEN MCGARRY in to discuss SOUZA form with patient. MOHSEN MCGARRY explained SOUZA form, patient voiced understanding. Pt signed form and filed in chart. Pt provided with a copy of signed SOUZA form. Patient had no further questions or concerns at this time. Pt aware that if she can dc home tomorrow that will be the plan but if she stays until Thursday MOHSEN MCGARRY will follow up with her. Pt denies any homecare or home services should she dc home.
[2024-02-06] MEDS: Na Biphos/Potassium Phosphate PACKET 1 PACKET PO (14:24)
[2024-02-06] MEDS: Rivaroxaban 20 MG Tablet PO (16:38)
--- NOTE | 2024-02-06 21:10 | CPS ---
Patient refuses aerosol due to feeling jittery, patient will call if she needs a treatment
[2024-02-06] MEDS: Temazepam 15 MG Capsule PO (22:45)
[2024-02-06] MEDS: Baclofen 10 MG Tablet PO (22:45)
[2024-02-07] VITALS (12 sets, daily range): BP systolic 132–168; BP diastolic 69–93; PULSE 69–115; RESP 16–18; TEMP 36.4–36.8; O2SAT 72–100; BMI 39.9
[2024-02-07] MEDS: 0.9% Normal Saline (1000mL) 1,000 ML 70 ML IV ×2 (04:06→17:02)
[2024-02-07 06:21] LABS: Absolute Lymphocyte Count 0.89 X10^3/uL (0.83-4.51); Absolute Neutrophil Count 11.4 X10^3/uL (2.0-7.7); Basophil# 0.03 X10^3/uL; Basophil% 0.2 % (0-1); Eosinophil# 0.01 X10^3/uL; Eosinophils% 0.1 % (0-5); Hematocrit 43.4 % (37-47); Hemoglobin 12.9 g/dL (12.0-15.0); Lymphocyte # 0.89 X10^3/ul (0.83-4.51); Lymphocyte % 6.6 % (19-41); Mean Corp Hgb Conc 29.7 g/dL (32-36); Mean Corpuscular Volume 100.9 fL (81-99); Monocyte# 0.88 X10^3/uL; Monocyte% 6.5 % (0-10); NRBC Flagged by Analyzer 0 % (0-5); Neutrophil # 11.35 X10^3/uL (2.7-7.7); Neutrophil % 83.9 % (47-70); Platelet Count 279 K/mm3 (150-450); RBC Distribution Width SD 56.3 fl (35.1-43.9); White Blood Count 13.5 K/mm3 (4.4-11.0)
[2024-02-07] MEDS: SILDENAFIL CITRATE 20 MG TABLET PO ×3 (06:22→21:16)
[2024-02-07] MEDS: Na Biphos/Potassium Phosphate PACKET 1 PACKET PO ×2 (06:22→13:36)
[2024-02-07] MEDS: Levothyroxine 50 MCG Tablet PO (06:22)
[2024-02-07] MEDS: morphine SR 15 MG Tablet PO ×3 (06:22→21:15)
[2024-02-07 06:57] LABS: ALB/GLOB Ratio 0.7 RATIO (0.9-2.4); AST(SGOT) 29 U/L (15-37); Alanine Aminotransfer ALT/SGPT 15 U/L (13-56); Albumin, Serum 2.2 g/dL (3.2-5.0); Alkaline Phosphatase 40 U/L (45-117); Anion Gap 4 (5-15); BUN 34 mg/dL (7-18); BUN/Creat Ratio 29.1 RATIO (10-20); Bilirubin, Direct 0.14 mg/dL (0.00-0.30); Calcium,Total 7.6 mg/dL (8.5-10.1); Chloride 104 mmol/L (98-107); Creatinine, Serum 1.17 mg/dL (0.55-1.02); EST Glomerular Filtration Rate 49 mL/min (>60); Est Glom Filt Rate - Afr Amer 59 mL/min (>60); Estimated Creatinine Clearance 56.94 ml/min; Globulin 3.3 g/dL (2.2-4.2); Glucose 121 mg/dL (74-106); Magnesium 2.3 mg/dL (1.6-2.6); Phosphorus 2.6 mg/dL (2.5-4.9); Potassium 5.2 mmol/L (3.5-5.1); Protein, Total 5.5 g/dL (6.4-8.2); Sodium Level 137 mmol/L (136-145)
[2024-02-07] MEDS: Amiodarone 200 MG Tablet 100 MG PO (08:05)
[2024-02-07] MEDS: predniSONE 20 MG Tablet PO ×2 (08:05→17:02)
--- NOTE | 2024-02-07 10:05 | PN.HOSP_ITS ---
Reason for Visit Reason for Visit: Diagnoses Elevated white blood cell count, unspecified (02/06/24) Morbid (severe) obesity due to excess calories (02/06/24) Other disorders of bilirubin metabolism (02/06/24) Dehydration (02/06/24) Lymphedema, not elsewhere classified (02/06/24) Hypotension, unspecified (02/06/24) Acute kidney failure, unspecified (02/06/24) Adverse effect of unspecified drugs, medicaments and biological substances, initial encounter (02/06/24) Body mass index [BMI] 40.0-44.9, adult (02/06/24) Personal history of pulmonary embolism (02/06/24) Objective Data Objective Data Vital Signs: Vital Signs Temp Pulse Resp BP Pulse Ox O2 Del Method O2 Flow Rate 97.5 F L 82 16 134/69 H 100 Nasal Cannula 2 02/07/24 07:55 02/07/24 07:55 02/07/24 07:55 02/07/24 07:55 02/07/24 07:55 02/07/24 08:00 02/07/24 08:00 Oxygen Flow Rate (L/min) 2 Oxygen Delivery Method Nasal Cannula Weight: 248 lb 3.848 oz Body Mass Index (BMI) 39.9 Intake & Output: Intake and Output for Last 24 Hours 02/05/24 02/06/24 02/07/24 23:59 23:59 23:59 Intake Total 500 / 500 991.67 / 991.67 983.5 / 983.5 Output Total 100 / 100 650 / 750 350 / 350 Balance 400 / 400 341.67 / 241.67 633.5 / 633.5 Lab / Micro Data 02/07/24 05:15 02/07/24 05:15 Labs: Laboratory Results - last 24 hr 02/07/24 05:15: WBC 13.5 H, RBC 4.30, Hgb 12.9, Hct 43.4, MCV 100.9 H, MCH 30.0, MCHC 29.7 L, RDW Std Deviation 56.3 H, RDW Coeff of Curtis 15.0 H, Plt Count 279, MPV 9.0, Immature Gran % (Auto) 2.700 H, Neut % (Auto) 83.9 H, Lymph % (Auto) 6.6 L, [place] % (Auto) 6.5, Eos % (Auto) 0.1, Baso % (Auto) 0.2, Absolute Neuts (auto) 11.4 H, Absolute Lymphs (auto) 0.89, Nucleated RBC % 0, Sodium 137, Potassium 5.2 H, Chloride 104, Carbon Dioxide 29.0, Anion Gap 4 L, B UN 34 H, Creatinine 1.17 H, Estim Creat Clear Calc 56.94, Est GFR (MDRD) Af Amer 59 L, Est GFR (MDRD) Non-Af 49 L, BUN/Creatinine Ratio 29.1 H, Glucose 121 H, C alcium 7.6 L, Phosphorus 2.6, Magnesium 2.3, Total Bilirubin 1.30 H, Direct Bilirubin 0.14, AST 29, ALT 15, Alkaline Phosphatase 40 L, Total Protein 5.5 L, Albumin 2.2 L, Globulin 3.3, Albumin/Globulin Ratio 0.7 L Physical Exam Narrative Seen and examined. Patient has chronic fatigue ongoing for 1 month. No fever or chills. Mild increase in shortness of breath on exertion and wheezing General: Alert, Oriented x3, Cooperative HEENT: Atraumatic, PERRLA, EOMI, Normocephalic Oral: No Gingival or Mucosal Lesions/ Ulcerations Neck: Supple, No JVD, Negative Carotid Bruits Chest wall/Lungs: Air entry diminished in bilateral lungs. Bilateral bronchial breathing. Bilateral coarse wheezing at the end of expiration even without auscultation Cardiovascular: Regular rate, Regular Rhythm, Normal S1, Normal S2, No M/G/R Abdomen: Bowel Sounds Present, Soft, Non Tender, Non-Distended. Multiple surgical scars. : No dysuria. No renal angle tenderness. No suprapubic tenderness. Extremities: Chronic bilateral lymphedema uses lymphedema pump, chronic fibrosis and thickening of subcutaneous tissue of lower legs. Capillary Refill Less than 3 Seconds Skin: No rashes, No breakdown Musculoskeletal: No Tenderness to Palpation of Joints or Extremities Neurological: Cranial nerves II-XII grossly intact, DTR 2+/4. No acute focal neurological deficit. Psych/Mental Status: Flat affect Assessment & Plan Assessment/Plan (1) Hypotension: QUALIFIERS: Hypotension type: unspecified hypotension type Q ualified Code(s): I95.9 - Hypotension, unspecified (2) CHRISTINA (acute kidney injury): (3) Morbid obesity with BMI of 40.0-44.9, adult: (4) History of pulmonary embolism: PLAN: Plan 68-year-old female was admitted for generalized weakness with abrupt onset of not feeling well, dehydration and hypotension, lightheadedness with standing and coughing for 1 day prior to admission. Multiple chronic medical diagnoses/conditions 1. CHRISTINA most likely prerenal due to hypotension, BP 95/62 mmHg complicated by laboratory evidence of Dehydration with elevated serum creatinine of 1.63 mg/dL and BUN of 39 mg/dL present on admission - Admit to general medical floor under observation status. Volume resuscitate and then recheck renal indices in AM to ensure improvement. Avoid nephrotoxic medications. Baseline creatinine 0.83. Today, 1.30. BP 121/66, hypotension is resolved. Mild hypophosphatemia, Neutra-Phos ordered. Serum magnesium normal. 02/06: BUN/creatinine 34/1.17. Mild hyperkalemia K5.2. Neutra-Phos discontinued. 2. Chronic liver disease: . Patient baseline total bilirubin is around 2.0 but variable. Admitted with 2.1 most recent 1.3. Direct bilirubin ordered. Last seen in the GI office was April 2023. 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 02/05: Exact etiology of chronic liver disease is unclear patient was recommended liver biopsy during previous GI office visit with Dr. Redman. Suspected etiologies may be MASLD, chronic granulomatous disease/autoimmune disease. Last CT scan of September 2023 does not show cirrhotic nodular appearance of liver. Platelet count also normal. TB 2.1, improved to 1.4. ALT, AST and ALP low. A/G ratio 0.8. 02/06: Total Leandro 1.3, direct 0.14. Alkaline phosphatase 40 low. 3. Adverse Drug Reaction to Valsartan/HCTZ - Hold this agent for now and consider a less potentially nephrotoxic alternative. 4. Obesity; with BMI of 39.4 this admission plus Severe LE Lymphedema bilaterally and SARAHY; on CPAP- Weight loss will be recommended. Resume nocturnal CPAP as previous. Patient uses lymphedema pump at home 5. Severe Chronic Insomnia that has acutely worsened likely due to chronic opiate use disturbing sleep architecture - Give scheduled Temazepam 15 mg PO q HS and Melatonin 3 mg PO q HS to help patient both initiate sleep and maintain sleep respectively. 6. OA; with chronic pain syndrome on ER Morphine TID likely primary factor causing #5 - Noted. Current regimen to continue as previous. 7. Essential hypertension - Hold scheduled antihypertensives due to hypotension 8. Hypothyroidism - Resume Synthroid at current dose. TSH 0.99 on low normal. Her TSH level has been fluctuant between 0.73- 3.14 last 9 months. 9. History of Hyperparathyroidism - Noted. 10. History of secondary adrenal insufficiency - Noted. 11. History of tobacco abuse; with chronic bronchitis and asthma - Stable. 12. PAF; on Digoxin and Xarelto along with history of PE - Patient currently in NSR. Check digoxin level to evaluate for potential toxicity. 13. Pulmonary Hypertension; on Sildenafil TID - Maintain Sildenafil as previous. 14. History of Crohn's with small bowel resection x 2; with subsequent short- gut syndrome and chronic IBS; of diarrheal-type - Stable. She had last CT scan in September 2023 which showed right hemicolectomy. Normal liver multiple gallstones. Normal spleen and dilated ducts of the pancreas. She was last seen by Dr. Redman in the GI office in April 2023 at that time MRI enterography was suggested. 15. History of pancreatic divisum - Noted. 16. History of renal calculi - Stable with no evidence of recurrence at this time. 17. Fibromyalgia - 18. History of skin cancer - Noted. 19. History of CONCEPCION/BSO - Noted. 20. Listed allergies to PCN and Sulfa (angioedema/leg swelling) - We will avoid these classes of agents. 21. GERD - Continue PPI. 22. Osteoporosis; with history of kyphoplasty - Stable. 23. History of sacroiliitis - Noted. 24. DVT prophylaxis - Patient already on Xarelto, continue continued. 02/07/24 05:15: WBC 13.5 H, RBC 4.30, Hgb 12.9, Hct 43.4, MCV 100.9 H, MCH 30.0, MCHC 29.7 L, RDW Std Deviation 56.3 H, RDW Coeff of Curtis 15.0 H, Plt Count 279, MPV 9.0, Immature Gran % (Auto) 2.700 H, Neut % (Auto) 83.9 H, Lymph % (Auto) 6.6 L, Nolan % (Auto) 6.5, Eos % (Auto) 0.1, Baso % (Auto) 0.2, Absolute Neuts (auto) 11.4 H, Absolute Lymphs (auto) 0.89, Nucleated RBC % 0, Sodium 137, Potassium 5.2 H, Chloride 104, Carbon Dioxide 29.0, Anion Gap 4 L, B UN 34 H, Creatinine 1.17 H, Estim Creat Clear Calc 56.94, Est GFR (MDRD) Af Amer 59 L, Est GFR (MDRD) Non-Af 49 L, BUN/Creatinine Ratio 29.1 H, Glucose 121 H, C alcium 7.6 L, Phosphorus 2.6, Magnesium 2.3, Total Bilirubin 1.30 H, Direct Bilirubin 0.14, AST 29, ALT 15, Alkaline Phosphatase 40 L, Total Protein 5.5 L, Albumin 2.2 L, Globulin 3.3, Albumin/Globulin Ratio 0.7 L Charges/Coding Visit Charges Inpatient E&M: 93021 Subs Hosp L2
[2024-02-07] MEDS: Digoxin 125 MCG Tablet PO (10:17)
[2024-02-07] MEDS: Cholecalciferol (VIT D3) 25 MCG TABLET (1,000 UNITS) PO (10:18)
[2024-02-07] MEDS: Diphenoxylate/Atrop 1 Tablet 5 TABLET PO (10:19)
[2024-02-07] MEDS: Rivaroxaban 20 MG Tablet PO (17:02)
[2024-02-07] MEDS: Ammonium Lactate 225 gm Bottle 1 APPLIC TOPICAL (21:16)
[2024-02-07] MEDS: Temazepam 15 MG Capsule PO (21:16)
[2024-02-07] MEDS: Baclofen 10 MG Tablet PO (21:16)
[2024-02-08] VITALS (9 sets, daily range): BP systolic 101–154; BP diastolic 70–86; PULSE 73–106; RESP 18–20; TEMP 36.5–36.6; O2SAT 96–100; BMI 40.8
[2024-02-08] MEDS: Nystatin Powder 15gm Bottle 1 APPLIC TOPICAL ×2 (03:46→09:45)
[2024-02-08] MEDS: morphine SR 15 MG Tablet PO ×2 (06:22→14:05)
[2024-02-08] MEDS: SILDENAFIL CITRATE 20 MG TABLET PO ×2 (06:22→14:05)
[2024-02-08] MEDS: 0.9% Normal Saline (1000mL) 1,000 ML 70 ML IV (06:23)
[2024-02-08] MEDS: Levothyroxine 50 MCG Tablet PO (06:23)
[2024-02-08] MEDS: Menthol/Lanolin/Calamine/Znox 113 GM Tube 1 APPLIC TOPICAL ×2 (06:24→09:45)
[2024-02-08 06:29] LABS: Absolute Lymphocyte Count 0.45 X10^3/uL (0.83-4.51); Absolute Neutrophil Count 10.1 X10^3/uL (2.0-7.7); Basophil# 0.03 X10^3/uL; Basophil% 0.3 % (0-1); Eosinophil# 0.01 X10^3/uL; Eosinophils% 0.1 % (0-5); Hematocrit 42.3 % (37-47); Hemoglobin 12.5 g/dL (12.0-15.0); Lymphocyte # 0.45 X10^3/ul (0.83-4.51); Lymphocyte % 3.9 % (19-41); Mean Corp Hgb Conc 29.6 g/dL (32-36); Mean Corpuscular Volume 101.4 fL (81-99); Monocyte# 0.63 X10^3/uL; Monocyte% 5.5 % (0-10); NRBC Flagged by Analyzer 0 % (0-5); Neutrophil # 10.13 X10^3/uL (2.7-7.7); Neutrophil % 87.8 % (47-70); POSITIVE DIFFERENTIAL YES; Platelet Count 298 K/mm3 (150-450); RBC Distribution Width CV 14.9 % (11.6-14.6); RBC Distribution Width SD 56.1 fl (35.1-43.9); Red Blood Count 4.17 M/mm3 (4.2-5.4); White Blood Count 11.5 K/mm3 (4.4-11.0)
[2024-02-08 07:02] LABS: ALB/GLOB Ratio 0.8 RATIO (0.9-2.4); AST(SGOT) 19 U/L (15-37); Alanine Aminotransfer ALT/SGPT 17 U/L (13-56); Albumin, Serum 2.3 g/dL (3.2-5.0); Alkaline Phosphatase 41 U/L (45-117); Anion Gap 4 (5-15); BUN 28 mg/dL (7-18); BUN/Creat Ratio 33.3 RATIO (10-20); Calcium,Total 7.8 mg/dL (8.5-10.1); Chloride 105 mmol/L (98-107); Creatinine, Serum 0.84 mg/dL (0.55-1.02); EST Glomerular Filtration Rate 71 mL/min (>60); Est Glom Filt Rate - Afr Amer 86 mL/min (>60); Estimated Creatinine Clearance 80.34 ml/min; Globulin 2.8 g/dL (2.2-4.2); Glucose 123 mg/dL (74-106); Potassium 5.1 mmol/L (3.5-5.1); Protein, Total 5.1 g/dL (6.4-8.2); Sodium Level 138 mmol/L (136-145)
[2024-02-08] MEDS: Ammonium Lactate 225 gm Bottle 1 APPLIC TOPICAL (09:45)
[2024-02-08] MEDS: Cholecalciferol (VIT D3) 25 MCG TABLET (1,000 UNITS) PO (09:46)
[2024-02-08] MEDS: Amiodarone 200 MG Tablet 100 MG PO (09:46)
[2024-02-08] MEDS: predniSONE 20 MG Tablet PO (09:46)
[2024-02-08] MEDS: Digoxin 125 MCG Tablet PO (09:46)
[2024-02-08] MEDS: Diphenoxylate/Atrop 1 Tablet 5 TABLET PO (09:46)
--- NOTE | 2024-02-08 11:38 | CASEMGMT ---
MOHSEN MCGARRY into pt room, pt states she is going home today. Asked pt if she felt safe. She states she does feel safe she just needs someone who can help her carry in groceries, prepare meals and housekeeping tasks. Pt still denies need for C. Pt is interested in private duty resources and meals. Provided information at this time.
--- NOTE | 2024-02-08 11:40 | DCINST_ITS ---
Discharge Instructions Diet Discharge Diet: No restrictions, Low fat / Low cholesterol and 2000 mg Sodium Diet Activity Discharge Activity: Return to Normal Activity Weight Bearing Status: Weight bearing as tolerated Dressing / Incision Call your doctor if you observe: Fever of 101 or Higher, Coldness, Increased Pain, Numbness or Tingling, Change in Color, Inability to urinate, Inability to have a bowel movement, Shortness of breath, Dizziness, Fainting spells, Swelling in the ankles, Chest pain, Prolonged hiccupping, Increased palpitations (irregular heartbeat) and Calf discomfort Follow Up Care When: IN 2 WEEKS Test Results: Test results from this visit will be discussed in further detail at your follow- up appointment, if applicable. Discharge Plan Admission Admit Date/Time: 02/06/24 14:35 Primary Reason for Your Visit: CHRISTINA with generalized weakness Attending Provider: Isidro Morse Primary Care Provider: Julian Brand [employer] Providers: Ridge Boateng Discharge Orders/Prescriptions Prescriptions: Continued pantoprazole 40 mg tablet,delayed release (DR/EC) 40 mg PO DAILY PRN (Reason: Acid Reflux) levothyroxine 50 mcg tablet 50 mcg PO DAILY Prolia 60 mg/mL syringe 60 mg subcut [id number] Qty: 1 1RF budesonide-formoterol [Symbicort] 160-4.5 mcg/actuation HFA aerosol inhaler 2 puff inhalation BID PRN (Reason: SOB) metronidazole 0.75 % (37.5mg/5 gram) gel 1 appful vaginal DAILY PRN (Reason: vaginal irritation) lidocaine 5 % adhesive patch,medicated 1 patch topical DAILY PRN (Reason: pain) Rx Instructions: leave on most painful area for up to 12 hrs diphenoxylate-atropine 2.5-0.025 mg tablet 5 tab PO DAILY ammonium lactate 12 % cream 1 applic TOPICAL BID Patient Comments: Apply to the lower legs twice daily sildenafil (pulm.hypertension) 20 mg tablet 20 mg PO TID morphine 15 mg tablet extended release 15 mg PO TID Patient Comments: TAKE 1 TABLET BY MOUTH 3NTIMES DAILY montelukast 10 mg tablet 10 mg PO DAILY PRN (Reason: pain) loratadine [Allergy Relief (loratadine)] 10 mg tablet 10 mg PO DAILY PRN (Reason: allergy symptoms) IVIG INFUSION Rx Instructions: PT GETS IVIG INFUSIONS EVERY 6 MONTHS IN ONCOLOGY DEPT. LAST INFUSION IN AUGUST amiodarone 200 mg tablet 100 mg PO Q24H cholecalciferol (vitamin D3) [Vitamin D3] 25 mcg (1,000 unit) capsule 25 mcg PO DAILY prednisone 20 mg tablet 20 mg PO BID baclofen 10 mg tablet 10 mg PO QHS Xarelto 20 mg tablet 20 mg PO DAILY Qty: 30 11RF digoxin 125 mcg (0.125 mg) tablet 125 mcg PO DAILY Qty: 90 3RF Held valsartan-hydrochlorothiazide 80-12.5 mg tablet 1 tab PO DAILY Qty: 90 3RF Hold Instructions: Hold for 5 days. Probably antihypertensive needs to be changed. Follow with PCP to resume at lower dose Referrals / Follow Up: Stuart Vanegas MD [Med Staff - Active Staff] - Within 1 Month (Bilateral lower extremity lymphedema) Vikash Rosenthal MD [Med Staff - Active Staff] - Within 1 Month (Dizziness vertigo on walking) Julian Brand Chi, MD [Primary Care Provider] - In 1 Day Disposition Disposition (needs filled in before D/C Order can be placed): Home Health Service
--- NOTE | 2024-02-08 13:12 | CASEMGMT ---
Social Work- Pt confirms she has completed a living will and health care POA naming Stella Thompson, friend as primary agent.? Pt notified that documents are not on file at [facility] and SW requested they be brought in for scanning into the EMR.? DEDE Valles
--- NOTE | 2024-02-08 14:20 | DS.PCM_ITS ---
Providers Date of Admission: 02/06/24 Date of Discharge: 02/08/24 Primary Care Physician: Dr. Julian Brand MD Reason For Visit: DEHYDRATION, HYPOTENSION AND CHRISTINA Diagnosis Discharge Diagnosis (1) Hypotension: Status: Acute Code(s): I95.9 - Hypotension, unspecified Qualifiers: Hypotension type: unspecified hypotension type Qualified Code(s): I95.9 - Hypotension, unspecified (2) CHRISTINA (acute kidney injury): Status: Acute Code(s): N17.9 - Acute kidney failure, unspecified (3) Morbid obesity with BMI of 40.0-44.9, adult: Status: Chronic Code(s): E66.01 - Morbid (severe) obesity due to excess calories; Z68.41 - Body mass index [BMI] 40.0-44.9, adult (4) History of pulmonary embolism: Status: Chronic Code(s): Z86.711 - Personal history of pulmonary embolism Plan 68-year-old female was admitted for generalized weakness with abrupt onset of not feeling well, dehydration and hypotension, lightheadedness with standing and coughing for 1 day prior to admission. Multiple chronic medical diagnoses/conditions 1. CHRISTINA most likely prerenal due to hypotension, BP 95/62 mmHg complicated by laboratory evidence of Dehydration with elevated serum creatinine of 1.63 mg/dL and BUN of 39 mg/dL present on admission - Admit to general medical floor under observation status. Volume resuscitate and then recheck renal indices in AM to ensure improvement. Avoid nephrotoxic medications. Baseline creatinine 0.83. Today, 1.30. BP 121/66, hypotension is resolved. Mild hypophosphatemia, Neutra-Phos ordered. Serum magnesium normal. 02/06: BUN/creatinine 34/1.17. Mild hyperkalemia K5.2. Neutra-Phos discontinued. 02/07: BUN/creatinine normal. Serum potassium normal. She said she felt dizzy lightheaded and a spinning or walking. Her blood pressure is also labile. Orthostatic blood pressure 142/76 on supine position, 168/93 on sitting. No significant change on sitting up. Sometimes it goes low was 101/70. Probably related to pooling of blood/lymph lower extremities. She said that she can see Dr. Brand on the day of discharge. Was advised to follow-up with ENT Dr. Rosenthal. Discussed with PCP Dr. Brand and he will see her tomorrow. 2. Chronic liver disease: . Patient baseline total bilirubin is around 2.0 but variable. Admitted with 2.1 most recent 1.3. Direct bilirubin ordered. Last seen in the GI office was April 2023. 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 02/05: Exact etiology of chronic liver disease is unclear patient was recommended liver biopsy during previous GI office visit with Dr. Redman. Suspected etiologies may be MASLD, chronic granulomatous disease/autoimmune disease. Last CT scan of September 2023 does not show cirrhotic nodular appearance of liver. Platelet count also normal. TB 2.1, improved to 1.4. ALT, AST and ALP low. A/G ratio 0.8. 02/06: Total Leandro 1.3, direct 0.14. Alkaline phosphatase 40 low. 3. Adverse Drug Reaction to Valsartan/HCTZ - Hold this agent for now and consider a less potentially nephrotoxic alternative. 4. Obesity; with BMI of 39.4 this admission plus Severe LE Lymphedema bilaterally and SARAHY; on CPAP- Weight loss will be recommended. Resume nocturnal CPAP as previous. Patient uses lymphedema pump at home 5. Severe Chronic Insomnia that has acutely worsened likely due to chronic opiate use disturbing sleep architecture - Give scheduled Temazepam 15 mg PO q HS and Melatonin 3 mg PO q HS to help patient both initiate sleep and maintain sleep respectively. 6. OA; with chronic pain syndrome on ER Morphine TID likely primary factor causing #5 - Noted. Current regimen to continue as previous. 7. Essential hypertension - Hold scheduled antihypertensives due to hypotension 8. Hypothyroidism - Resume Synthroid at current dose. TSH 0.99 on low normal. Her TSH level has been fluctuant between 0.73- 3.14 last 9 months. 9. History of Hyperparathyroidism - Noted. 10. History of secondary adrenal insufficiency - Noted. 11. History of tobacco abuse; with chronic bronchitis and asthma - Stable. 12. PAF; on Digoxin and Xarelto along with history of PE - Patient currently in NSR. Check digoxin level to evaluate for potential toxicity. 13. Pulmonary Hypertension; on Sildenafil TID - Maintain Sildenafil as previous. 14. History of Crohn's with small bowel resection x 2; with subsequent short- gut syndrome and chronic IBS; of diarrheal-type - Stable. She had last CT scan in September 2023 which showed right hemicolectomy. Normal liver multiple gallstones. Normal spleen and dilated ducts of the pancreas. She was last seen by Dr. Redman in the GI office in April 2023 at that time MRI enterography was suggested. 15. History of pancreatic divisum - Noted. 16. History of renal calculi - Stable with no evidence of recurrence at this time. 17. Fibromyalgia - 18. History of skin cancer - Noted. 19. History of CONCEPCION/BSO - Noted. 20. Listed allergies to PCN and Sulfa (angioedema/leg swelling) - We will avoid these classes of agents. 21. GERD - Continue PPI. 22. Osteoporosis; with history of kyphoplasty - Stable. 23. History of sacroiliitis - Noted. 24. DVT prophylaxis - Patient already on Xarelto, continue continued. 02/07/24 05:15: WBC 13.5 H, RBC 4.30, Hgb 12.9, Hct 43.4, MCV 100.9 H, MCH 30.0, MCHC 29.7 L, RDW Std Deviation 56.3 H, RDW Coeff of Curtis 15.0 H, Plt Count 279, MPV 9.0, Immature Gran % (Auto) 2.700 H, Neut % (Auto) 83.9 H, Lymph % (Auto) 6.6 L, [place] % (Auto) 6.5, Eos % (Auto) 0.1, Baso % (Auto) 0.2, Absolute Neuts (auto) 11.4 H, Absolute Lymphs (auto) 0.89, Nucleated RBC % 0, Sodium 137, Potassium 5.2 H, Chloride 104, Carbon Dioxide 29.0, Anion Gap 4 L, B UN 34 H, Creatinine 1.17 H, Estim Creat Clear Calc 56.94, Est GFR (MDRD) Af Amer 59 L, Est GFR (MDRD) Non-Af 49 L, BUN/Creatinine Ratio 29.1 H, Glucose 121 H, C alcium 7.6 L, Phosphorus 2.6, Magnesium 2.3, Total Bilirubin 1.30 H, Direct Bilirubin 0.14, AST 29, ALT 15, Alkaline Phosphatase 40 L, Total Protein 5.5 L, Albumin 2.2 L, Globulin 3.3, Albumin/Globulin Ratio 0.7 L Medications at Discharge Home Medications pantoprazole 40 mg tablet,delayed release 40 mg PO DAILY PRN Acid Reflux 05/29/20 diphenoxylate-atropine 2.5 mg-0.025 mg tablet 5 tab PO DAILY Diarrhea/Loose Stools 09/06/20 levothyroxine 50 mcg tablet 50 mcg PO DAILY thyroid 12/09/21 ammonium lactate 12 % topical cream 1 applic topical BID dry legs 05/12/22 sildenafil (pulm.hypertension) 20 mg tablet 20 mg PO TID Pulmonary HTN 05/12/22 budesonide-formoterol HFA 160 mcg-4.5 mcg/actuation aerosol inhaler (Symbicort) 2 puff inhalation BID PRN SOB 09/24/22 lidocaine 5 % topical patch 1 patch topical DAILY PRN pain 09/24/22 metronidazole 0.75 % (37.5 mg/5 gram) vaginal gel 1 appful vaginal DAILY PRN vaginal irritation 09/24/22 Prolia 60 mg/mL subcutaneous syringe (denosumab) 60 mg subcut [id number] #1 mL 12/22/22 valsartan 80 mg-hydrochlorothiazide 12.5 mg tablet 1 tab PO DAILY BP #90 tabs 05/29/23 rivaroxaban 20 mg tablet (Xarelto) 20 mg PO DAILY Please change quantity to 30 days #30 tabs 06/09/23 digoxin 125 mcg (0.125 mg) tablet 125 mcg PO DAILY heart #90 tabs 08/24/23 morphine 15 mg tablet,extended release 15 mg PO TID PAIN 10/09/23 IVIG INFUSION 10/18/23 loratadine 10 mg tablet (Allergy Relief (loratadine)) 10 mg PO DAILY PRN allergy symptoms 10/18/23 montelukast 10 mg tablet 10 mg PO DAILY PRN pain 10/18/23 amiodarone 200 mg tablet 100 mg PO Q24H ARRHYTHMIA 02/05/24 baclofen 10 mg tablet 10 mg PO QHS 02/05/24 cholecalciferol (vitamin D3) 25 mcg (1,000 unit) capsule (Vitamin D3) 25 mcg PO DAILY 02/05/24 prednisone 20 mg tablet 20 mg PO BID 02/05/24 Weight / BMI Weight Weight: 253 lb 15.56 oz Body Mass Index (BMI) 40.8 ABG / Lab / Microbiology Data 02/08/24 06:10 02/08/24 06:10 Laboratory: Laboratory Results - last 24 hr 02/08/24 06:10: WBC 11.5 H, RBC 4.17 L, Hgb 12.5, Hct 42.3, MCV 101.4 H, MCH 30.0, MCHC 29.6 L, RDW Std Deviation 56.1 H, RDW Coeff of Curtis 14.9 H, Plt Count 298, MPV 9.0, Immature Gran % (Auto) 2.400 H, Neut % (Auto) 87.8 H, Lymph % (Auto) 3.9 L, [place] % (Auto) 5.5, Eos % (Auto) 0.1, Baso % (Auto) 0.3, Absolute Neuts (auto) 10.1 H, Absolute Lymphs (auto) 0.45 L, Nucleated RBC % 0, Sodium 138, Potassium 5.1, Chloride 105, Carbon Dioxide 29.0, Anion Gap 4 L, BUN 28 H, Creatinine 0.84, Estim Creat Clear Calc 80.34, Est GFR (MDRD) Af Amer 86, Est GFR (MDRD) Non-Af 71, BUN/Creatinine Ratio 33.3 H, Glucose 123 H, Calcium 7.8 L, Total Bilirubin 1.10 H, AST 19, ALT 17, Alkaline Phosphatase 41 L, Total Protein 5.1 L, Albumin 2.3 L, Globulin 2.8, Albumin/Globulin Ratio 0.8 L Microbiology: Microbiology 02/05/24 18:11 Blood Culture (Wb) - Chest Blood Culture - Preliminary No growth in 48 hours. D/C Instructions Discharge Diet: No restrictions, Low fat / Low cholesterol and 2000 mg Sodium Diet Weight Bearing Status: Weight bearing as tolerated Call your doctor if you observe: Fever of 101 or Higher, Coldness, Increased Pain, Numbness or Tingling, Change in Color, Inability to urinate, Inability to have a bowel movement, Shortness of breath, Dizziness, Fainting spells, Swelling in the ankles, Chest pain, Prolonged hiccupping, Increased palpitations (irregular heartbeat) and Calf discomfort When: IN 2 WEEKS Meaningful Use Info Meaningful Use Meaningful Use Diagnoses (Choose all that apply): None applicable Ischemic Stroke Statin Dosing Therapy Reference: STATIN DOSE THERAPY REFERENCE: * Patients > 75 years receive moderate or high dose statin therapy. * Patients 75 years or YOUNGER should receive HIGH intensity statin dose unless contraindicated. You will be required to document reason for non-treatment if statin daily dose does not meet guidelines. HIGH DOSE STATIN THERAPY DAILY Atorvastatin > than or = to 40 mg Rosuvastatin > than or = to 20 mg Amlodipine + Atorvastatin > than or = to 2.5/40 mg Ezetimibe + Simvastatin 10/80 mg Simvastatin 80mg Discharge Plan Admission Admit Date/Time: 02/06/24 14:35 Primary Reason for Your Visit: CHRISTINA with generalized weakness Attending Provider: Isidro Morse Primary Care Provider: Julian Brand [employer] Providers: Ridge Boateng Discharge Orders/Prescriptions Prescriptions: Continued pantoprazole 40 mg tablet,delayed release (DR/EC) 40 mg PO DAILY PRN (Reason: Acid Reflux) levothyroxine 50 mcg tablet 50 mcg PO DAILY Prolia 60 mg/mL syringe 60 mg subcut [id number] Qty: 1 1RF budesonide-formoterol [Symbicort] 160-4.5 mcg/actuation HFA aerosol inhaler 2 puff inhalation BID PRN (Reason: SOB) metronidazole 0.75 % (37.5mg/5 gram) gel 1 appful vaginal DAILY PRN (Reason: vaginal irritation) lidocaine 5 % adhesive patch,medicated 1 patch topical DAILY PRN (Reason: pain) Rx Instructions: leave on most painful area for up to 12 hrs diphenoxylate-atropine 2.5-0.025 mg tablet 5 tab PO DAILY ammonium lactate 12 % cream 1 applic TOPICAL BID Patient Comments: Apply to the lower legs twice daily sildenafil (pulm.hypertension) 20 mg tablet 20 mg PO TID morphine 15 mg tablet extended release 15 mg PO TID Patient Comments: TAKE 1 TABLET BY MOUTH 3NTIMES DAILY montelukast 10 mg tablet 10 mg PO DAILY PRN (Reason: pain) loratadine [Allergy Relief (loratadine)] 10 mg tablet 10 mg PO DAILY PRN (Reason: allergy symptoms) IVIG INFUSION Rx Instructions: PT GETS IVIG INFUSIONS EVERY 6 MONTHS IN ONCOLOGY DEPT. LAST INFUSION IN AUGUST amiodarone 200 mg tablet 100 mg PO Q24H cholecalciferol (vitamin D3) [Vitamin D3] 25 mcg (1,000 unit) capsule 25 mcg PO DAILY prednisone 20 mg tablet 20 mg PO BID baclofen 10 mg tablet 10 mg PO QHS Xarelto 20 mg tablet 20 mg PO DAILY Qty: 30 11RF digoxin 125 mcg (0.125 mg) tablet 125 mcg PO DAILY Qty: 90 3RF Held valsartan-hydrochlorothiazide 80-12.5 mg tablet 1 tab PO DAILY Qty: 90 3RF Hold Instructions: Hold for 5 days. Probably antihypertensive needs to be changed. Follow with PCP to resume at lower dose Referrals / Follow Up: Stuart Vanegas MD [Med Staff - Active Staff] - 03/16/24 10:00 am (Bilateral lower extremity lymphedema) Vikash Rosenthal MD [Med Staff - Active Staff] - 03/07/24 1:00 pm (Dizziness vertigo on walking) Julian Brand Chi, MD [Primary Care Provider] - In 1 Day (I got the answer machine when I called to make this appointment. I asked them to call the patient. If the patient does not here back from the office by 4:00 pm, she should call the office again.) Disposition Disposition (needs filled in before D/C Order can be placed): Home, Self Care Charges/Coding Visit Charges Inpatient E&M: 96255 Disch Hosp >30min
[2024-02-08] MEDS: 0.9% Saline Lock 10 ML Syringe IV (14:34)
== END 2024-02-08 16:15 | disposition home or self-care (01) | DRG 315 ==
LOC: ED 19:35 → MS3 23:46
PROVIDERS: Admitting Provider Internal Medicine; Emergency Provider Emergency Medicine; PCP Family Medicine Geriatric Medicine; Visit Provider Internal Medicine
DX: I95.9 Hypotension, unspecified (principal); N17.9 Acute kidney failure, unspecified; K90.829 Short bowel syndrome, unspecified; I27.20 Pulmonary hypertension, unspecified; I48.0 Paroxysmal atrial fibrillation; E86.0 Dehydration; J44.9 Chronic obstructive pulmonary disease, unspecified; E03.9 Hypothyroidism, unspecified; K76.9 Liver disease, unspecified; I10 Essential (primary) hypertension; Z68.39 Body mass index [BMI] 39.0-39.9, adult; E66.01 Morbid (severe) obesity due to excess calories; K58.9 Irritable bowel syndrome, unspecified; M79.7 Fibromyalgia; K21.9 Gastro-esophageal reflux disease without esophagitis; G47.33 Obstructive sleep apnea (adult) (pediatric); M19.90 Unspecified osteoarthritis, unspecified site; T46.5X5A Adverse effect of other antihypertensive drugs, initial encounter; M81.0 Age-related osteoporosis without current pathological fracture; G89.4 Chronic pain syndrome; F51.04 Psychophysiologic insomnia; Z87.891 Personal history of nicotine dependence; Z79.899 Other long term (current) drug therapy; Z79.01 Long term (current) use of anticoagulants; Z79.51 Long term (current) use of inhaled steroids; Z86.711 Personal history of pulmonary embolism
CPT/HCPCS: 36415; 51702; 71045; 80053; 80162; 81001; 82248; 83605; 83735; 84100; 84443; 84484; 85025; 85610; 87040; 90662; 93005; 94640; 97110; 97162; 97166; 97530; 97535; 97802; 99285; J7030; A4216

== ENCOUNTER → 2024-02-09 | Outpatient (CLI) | payer MEDICARE, OTHER, SELFPAY ==
[2024-02-09 17:58] LABS: Absolute Lymphocyte Count 0.37 X10^3/uL (0.83-4.51); Absolute Neutrophil Count 12.6 X10^3/uL (2.0-7.7); Basophil# 0.03 X10^3/uL; Basophil% 0.2 % (0-1); Eosinophil# 0.01 X10^3/uL; Eosinophils% 0.1 % (0-5); Hematocrit 44.5 % (37-47); Hemoglobin 13.4 g/dL (12.0-15.0); Lymphocyte # 0.37 X10^3/ul (0.83-4.51); Lymphocyte % 2.7 % (19-41); Mean Corp Hgb Conc 30.1 g/dL (32-36); Mean Corpuscular Volume 99.8 fL (81-99); Monocyte# 0.44 X10^3/uL; Monocyte% 3.2 % (0-10); NRBC Flagged by Analyzer 0 % (0-5); Neutrophil # 12.56 X10^3/uL (2.7-7.7); POSITIVE DIFFERENTIAL YES; Platelet Count 319 K/mm3 (150-450); RBC Distribution Width CV 15.1 % (11.6-14.6); Red Blood Count 4.46 M/mm3 (4.2-5.4); White Blood Count 13.7 K/mm3 (4.4-11.0)
[2024-02-09 18:43] LABS: ALB/GLOB Ratio 0.9 RATIO (0.9-2.4); AST(SGOT) 10 U/L (15-37); Alanine Aminotransfer ALT/SGPT 14 U/L (13-56); Albumin, Serum 2.6 g/dL (3.2-5.0); Alkaline Phosphatase 50 U/L (45-117); Anion Gap 7 (5-15); BUN 36 mg/dL (7-18); BUN/Creat Ratio 26.7 RATIO (10-20); Calcium,Total 8.7 mg/dL (8.5-10.1); Chloride 103 mmol/L (98-107); Creatinine, Serum 1.35 mg/dL (0.55-1.02); EST Glomerular Filtration Rate 41 mL/min (>60); Est Glom Filt Rate - Afr Amer 50 mL/min (>60); Globulin 2.8 g/dL (2.2-4.2); Glucose 151 mg/dL (74-106); Magnesium 2.1 mg/dL (1.6-2.6); Phosphorus 2.9 mg/dL (2.5-4.9); Potassium 4.6 mmol/L (3.5-5.1); Protein, Total 5.4 g/dL (6.4-8.2); Sodium Level 138 mmol/L (136-145)
== END | disposition home or self-care (01) ==
LOC: POLAB3 17:19
PROVIDERS: PCP Family Medicine Geriatric Medicine; Visit Provider Family Medicine Geriatric Medicine
DX: N17.9 Acute kidney failure, unspecified (principal)
CPT/HCPCS: 36415; 80053; 83735; 84100; 85025

== ENCOUNTER 2024-02-10 11:39 | Inpatient (IN) | payer MEDICARE, OTHER, SELFPAY ==
[2024-02-10] VITALS (10 sets, daily range): BP systolic 92–149; BP diastolic 49–136; PULSE 78–101; RESP 14–30; TEMP 36.1–37.2; O2SAT 91–97; BMI 40.1; BMI 43.0
--- NOTE | 2024-02-10 12:10 | EKG12_ITS ---
Test Reason : EDEMA Blood Pressure : / mmHG Vent. Rate : 096 BPM Atrial Rate : 096 BPM P-R Int : 146 ms QRS Dur : 072 ms QT Int : 306 ms P-R-T Axes : 052 016 016 degrees QTc Int : 386 ms Normal sinus rhythm Normal ECG Confirmed by Dewayne Perrin ([id number]), avid editor ADRIANE ANTUNEZ ([id number]) on 02/15/2024 10:37:49 AM Referred By: Confirmed By:Dewayne Perrin
--- NOTE | 2024-02-10 12:19 | EDS_ITS ---
HPI History of Present Illness Chief Complaint: Edema Narrative Narrative: Patient is a 68-year-old female past medical history of chronic lymphedema, paroxysmal atrial fibrillation on Xarelto, hyponatremia, hyperparathyroidism, osteoporosis who presents to the emergency department with a chief complaint of generalized weakness and unable to care for self. Patient states that she was recently here and was discharged home. States that today she noted that she was too weak to get up out of her chair. States that she called her friend to have her brought here however they could not get her up out of the chair prompting them to call EMS. Patient states that she does live alone and states that she cannot care for herself any longer at home. She believes that she needs rehab. [facility] Medical History Hyperbilirubinemia On home oxygen therapy Lymphedema Shakiness Fatigue Mild cognitive impairment Secondary hyperparathyroidism Secondary adrenal insufficiency Cellulitis of leg Hyponatremia Hyperparathyroidism Sacroiliitis Weight loss Unintentional weight loss Screening for colon cancer Left ureteral calculus Paroxysmal atrial fibrillation Essential hypertension Skin lesion Thrombocytosis Chronic pain Former smoker CPAP (continuous positive airway pressure) dependence Sleep apnea A-fib New onset a-fib History of echocardiogram Chronic bronchitis History of blood transfusion Pulmonary HTN Bone fracture Vitamin deficiency Skin cancer PNE Back problem Osteoporosis Osteopenia OA (osteoarthritis) Arthritis Gastrointestinal distress Gallstones COPD (chronic obstructive pulmonary disease) Anemia Seasonal allergies Pancreatic divisum Fibromyalgia Immunodeficiency disorder, selective immunoglobulin Asthma Crohns disease HTN (hypertension) GERD (gastroesophageal reflux disease) SARAHY (obstructive sleep apnea) Hypertension Home Medications ?Medication ?Instructions ?Recorded ?Last Taken ?Type pantoprazole 40 mg tablet,delayed 40 mg PO DAILY PRN Acid Reflux 05/29/20 10/18/23 History release diphenoxylate-atropine 2.5 5 tab PO DAILY Diarrhea/Loose 09/06/20 10/18/23 History mg-0.025 mg tablet Stools levothyroxine 50 mcg tablet 50 mcg PO DAILY thyroid 12/09/21 10/18/23 History ammonium lactate 12 % topical cream 1 applic topical BID dry legs 05/12/22 10/18/23 History sildenafil (pulm.hypertension) 20 20 mg PO TID Pulmonary HTN 05/12/22 Unknown History mg tablet budesonide-formoterol HFA 160 2 puff inhalation BID PRN SOB 09/24/22 10/18/23 History mcg-4.5 mcg/actuation aerosol inhaler (Symbicort) lidocaine 5 % topical patch 1 patch topical DAILY PRN pain 09/24/22 10/18/23 History Prolia 60 mg/mL subcutaneous 60 mg subcut [id number] #1 mL 12/22/22 Unknown Rx syringe (denosumab) rivaroxaban 20 mg tablet (Xarelto) 20 mg PO DAILY Please change 06/09/23 Unknown Rx quantity to 30 days #30 tabs digoxin 125 mcg (0.125 mg) tablet 125 mcg PO DAILY heart #90 tabs 08/24/23 10/18/23 Rx morphine 15 mg tablet,extended 15 mg PO TID PAIN 10/09/23 10/18/23 History release IVIG INFUSION 10/18/23 Unknown History loratadine 10 mg tablet (Allergy 10 mg PO DAILY PRN allergy symptoms 10/18/23 Unknown History Relief (loratadine)) montelukast 10 mg tablet 10 mg PO DAILY PRN pain 10/18/23 10/18/23 History amiodarone 200 mg tablet 100 mg PO Q24H ARRHYTHMIA 02/05/24 Unknown History baclofen 10 mg tablet 10 mg PO QHS 02/05/24 Unknown History cholecalciferol (vitamin D3) 25 25 mcg PO DAILY 02/05/24 Unknown History mcg (1,000 unit) capsule (Vitamin D3) prednisone 20 mg tablet 20 mg PO BID 02/05/24 Unknown History Allergy/AdvReac Type Severity Reaction Status Date / Time codeine Allergy Severe ANGIOEDEMA/LEG Verified 02/05/24 17:41 SWELLING Penicillins Allergy Severe ANGIOEDEMA/LEG Verified 02/05/24 17:41 SWELLING Sulfa (Sulfonamide Allergy Severe ANGIOEDEMA/LEG Verified 02/05/24 17:41 Antibiotics) SWELLING sulfasalazine (From Allergy Severe ANGIOEDEMA/LEG Verified 02/05/24 17:41 Azulfidine) SWELLING Family History Father Anemia Heart disease Hypertension CVA (cerebral vascular accident) Mother Arthritis Cancer Osteoporosis Sister Arthritis Lung disease Surgical History History of appendectomy History of kyphoplasty (~07/07/16) Leg fracture, right History of left knee replacement History of tonsillectomy History of total hysterectomy with bilateral salpingo-oophorectomy (BSO) History of pneumonectomy History of resection of small bowel History of right heart catheterization (RHC) (~05/09/16) Social History Smoking Status: Former smoker how long ago did patient quit smokin second hand exposure: No alcohol intake: current alcohol intake frequency: other substance use type: does not use caffeine: Yes Type: carbonated beverages, coffee and tea what type of physical activity do you participate in: none seatbelt use: always 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 ROS ED ROS Narrative Constitutional: Denies any fevers, chills, headaches, lightheadedness Eyes: Denies change in vision double vision blurry vision Cardiovascular: Denies chest pain or palpitations Respiratory: Complains of shortness of breath with exertion denies coughing wheezing Abdomen: Denies abdominal pain nausea vomit diarrhea : Denies any urinary symptoms Neurological: Complains of generalized weakness as noted above denies numbness or tingling Skin: States that she has increased swelling in her lower extremities that she chronically has swelling then as well as bruising noted to her lower extremities EXAM Physical Exam Narrative Exam Narrative: General: Patient lying in bed rest comfortably did not appear to be in acute distress Head: Atraumatic, normocephalic Eyes: PERRL bilaterally, EOMI bilateral, no conjunctival injection noted Neck: Soft, supple, trachea midline Cardiovascular: Regular rate and rhythm no murmurs gallops rubs noted Respiratory: Clear to auscultation bilaterally Abdomen: Soft, nondistended, nontender to palpation, bowel sounds present x 4 Extremities: +4/5 strength noted in the bilateral upper extremities, patient was able to raise her bilateral lower extremities off the bed secondary to weakness she states Neurological: Patient following commands knew that she was at [facility] year is 2023 sensation grossly intact. NIH is 0 GCS 15 Skin: Warm, dry, intact, chronic skin changes noted to the lower extremities bilaterally, patient has ecchymosis noted to the bilateral lower extremities with chronic skin changes noted Const Vital Signs: 02/10/24 11:40 02/10/24 13:39 02/10/24 14:03 Temperature 98.3 F 98.1 F Temperature Source Temporal Pulse Rate 78 101 H 93 Respiratory Rate 24 H 23 H 14 Blood Pressure 149/136 H 103/49 L 125/69 H Blood Pressure Mean 140 67 87 Pulse Ox 94 94 97 Oxygen Delivery Method Room Air Room Air 02/10/24 14:04 02/10/24 15:04 Temperature 98.1 F 98.0 F Temperature Source Temporal Temporal Pulse Rate 93 94 Respiratory Rate 16 22 H Blood Pressure 125/69 H 96/61 Blood Pressure Mean 87 72 Pulse Ox 97 91 Oxygen Delivery Method Room Air Room Air MDM MDM MDM Narrative Medical decision making narrative: Patient is a 68-year-old female who presented to the emergency department chief complaint of generalized weakness and not able to care for herself anymore. Patient will have a workup performed here on the differential diagnose includes but limited to ACS, pneumonia, UTI, upper respiratory infection or viral etiology. Once workup is obtained reviewed she will be reevaluated. Patient's CBC reviewed with significant leukocytosis of 16,000, hemoglobin 13.8, platelet count normal at 386. Patient sodium normal 140, potassium of 4.5, creatinine was elevated 1.56 her baseline appears to be around 1-1.3, lactic acid was elevated 2.2, AST and ALT were 9 and 16 respectively, troponin normal at 27. Patient's EKG was reviewed as well which independently interpreted myself showed sinus rhythm with a rate of 96 bpm. Patient's urinalysis showed 25 leukocyte esterase 0-5 white cells with 3+ bacteria her urine was sent for culture. Patient will be given a gram Rocephin. Patient's chest x-ray was reviewed and showed no acute cardiopulmonary processes. On reevaluation the patient and she states that she feels extremely weak still and cannot get up therefore she will require admission to the hospital. Did discuss case with hospitalist Dr. Clemente who accept patient for admission. Patient was notified with all question concerns answered. Lab Data Labs: Laboratory Results - last 24 hr 02/10/24 02/10/24 02/10/24 12:19 12:58 14:39 WBC 16.1 H RBC 4.58 Hgb 13.8 Hct 44.9 MCV 98.0 MCH 30.1 MCHC 30.7 L RDW Std Deviation 54.8 H RDW Coeff of [place] 15.2 H Plt Count 386 MPV 9.1 Immature Gran % (Auto) 2.600 H Neut % (Auto) 81.0 H Lymph % (Auto) 9.5 L [place] % (Auto) 6.3 Eos % (Auto) 0.4 Baso % (Auto) 0.2 Absolute Neuts (auto) 13.0 H Absolute Lymphs (auto) 1.52 Nucleated RBC % 0 Sodium 140 Potassium 4.5 Chloride 103 Carbon Dioxide 26.0 Anion Gap 11 BUN 42 H Creatinine 1.56 H Estim Creat Clear Calc 42.77 Est GFR (MDRD) Af Amer 42 L Est GFR (MDRD) Non-Af 35 L BUN/Creatinine Ratio 26.9 H Glucose 140 H Lactic Acid 2.2 H* Calcium 9.0 Total Bilirubin 1.60 H AST 9 L ALT 16 Alkaline Phosphatase 48 Troponin I High Sens 27 B-Natriuretic Peptide 54.9 Total Protein 6.1 L Albumin 2.8 L Globulin 3.3 Albumin/Globulin Ratio 0.8 L Urine Color Yellow Urine Clarity Cloudy Urine pH 5.0 Ur Specific [place] 1.025 Urine Protein 30 H Urine Glucose (UA) Normal Urine Ketones 5 H Urine Occult Blood 50 H Urine Nitrite Negative Urine Bilirubin 1 H Urine Urobilinogen 1 H Ur Leukocyte Esterase 25 H Urine RBC 5-10 SEEN Urine WBC 0-5 SEEN Ur Squamous Epith Cells 0-5 SEEN Calcium Oxalate Crystal 1+ Amorphous Sediment 2+ Urine Bacteria 3+ Hyaline Casts 10-25 SEEN Coarse Granular Casts 0-5 SEEN Urine Mucus 1+ Radiography Diagnostic Testing: Clinical Impression(s) from Imaging Studies Chest X-Ray 02/10/24 12:40 IMPRESSION: No acute abnormality is seen. Stable examination. Electronically Signed: Raul Padilla MD at 13:35 EDT , Discharge Plan Triage Chief Complaint: Edema ED Provider: Stiven Becker Dx/Rx/DC Orders Clinical Impression: Generalized muscle weakness, Urinary tract infection, Acute lactic acidosis Prescriptions: No Action pantoprazole 40 mg tablet,delayed release (DR/EC) 40 mg PO DAILY PRN (Reason: Acid Reflux) levothyroxine 50 mcg tablet 50 mcg PO DAILY Prolia 60 mg/mL syringe 60 mg subcut [id number] Qty: 1 1RF budesonide-formoterol [Symbicort] 160-4.5 mcg/actuation HFA aerosol inhaler 2 puff inhalation BID PRN (Reason: SOB) lidocaine 5 % adhesive patch,medicated 1 patch topical DAILY PRN (Reason: pain) Rx Instructions: leave on most painful area for up to 12 hrs diphenoxylate-atropine 2.5-0.025 mg tablet 5 tab PO DAILY ammonium lactate 12 % cream 1 applic TOPICAL BID Patient Comments: Apply to the lower legs twice daily sildenafil (pulm.hypertension) 20 mg tablet 20 mg PO TID morphine 15 mg tablet extended release 15 mg PO TID Patient Comments: TAKE 1 TABLET BY MOUTH 3NTIMES DAILY montelukast 10 mg tablet 10 mg PO DAILY PRN (Reason: pain) loratadine [Allergy Relief (loratadine)] 10 mg tablet 10 mg PO DAILY PRN (Reason: allergy symptoms) IVIG INFUSION Rx Instructions: PT GETS IVIG INFUSIONS EVERY 6 MONTHS IN ONCOLOGY DEPT. LAST INFUSION IN AUGUST amiodarone 200 mg tablet 100 mg PO Q24H cholecalciferol (vitamin D3) [Vitamin D3] 25 mcg (1,000 unit) capsule 25 mcg PO DAILY prednisone 20 mg tablet 20 mg PO BID baclofen 10 mg tablet 10 mg PO QHS Xarelto 20 mg tablet 20 mg PO DAILY Qty: 30 11RF digoxin 125 mcg (0.125 mg) tablet 125 mcg PO DAILY Qty: 90 3RF Primary Care Provider: Julian Brand Chi Referrals: Julian Brand Chi, MD [Primary Care Provider] - Print Language: Kosovan
[2024-02-10 12:32] LABS: Absolute Lymphocyte Count 1.52 X10^3/uL (0.83-4.51); Basophil# 0.03 X10^3/uL; Basophil% 0.2 % (0-1); Eosinophil# 0.07 X10^3/uL; Eosinophils% 0.4 % (0-5); Hematocrit 44.9 % (37-47); Hemoglobin 13.8 g/dL (12.0-15.0); Lymphocyte # 1.52 X10^3/ul (0.83-4.51); Lymphocyte % 9.5 % (19-41); Mean Corp Hgb Conc 30.7 g/dL (32-36); Mean Corpuscular Hgb 30.1 pg (27.0-32.0); Mean Platelet Vol. 9.1 fl (6.2-12.0); Monocyte# 1.01 X10^3/uL; Monocyte% 6.3 % (0-10); NRBC Flagged by Analyzer 0 % (0-5); Neutrophil # 13.02 X10^3/uL (2.7-7.7); Platelet Count 386 K/mm3 (150-450); RBC Distribution Width CV 15.2 % (11.6-14.6); RBC Distribution Width SD 54.8 fl (35.1-43.9); Red Blood Count 4.58 M/mm3 (4.2-5.4); White Blood Count 16.1 K/mm3 (4.4-11.0)
--- NOTE | 2024-02-10 12:40 | RAD_ITS ---
STUDY: X-RAY CHEST REASON FOR EXAM: Female, 68 years old. Sob TECHNIQUE: Single AP portable view of the chest. COMPARISON: Comparison is made with prior study of February 05, 2024. FINDINGS: A right-sided mundo catheter seen with the tip in the right atrium. EKG electrodes are seen. The lungs are clear and expanded. There is no demonstrated pleural abnormality. Normal size heart. Normal mediastinum and irena. Normal visualized pulmonary arteries. There is atherosclerotic calcification of the aortic arch with tortuosity. There are diffuse degenerative changes of the visualized thoracic spine. Normal visualized ribs, clavicles, and shoulders. There is no demonstrated abnormality of the visualized soft tissue structures of the upper abdomen. RAD/Chest 1 View (Portable) IMPRESSION: No acute abnormality is seen. Stable examination. Electronically Signed: Raul Padilla MD at 13:35 EDT ,
[2024-02-10 12:47] LABS: ALB/GLOB Ratio 0.8 RATIO (0.9-2.4); AST(SGOT) 9 U/L (15-37); Alanine Aminotransfer ALT/SGPT 16 U/L (13-56); Albumin, Serum 2.8 g/dL (3.2-5.0); Alkaline Phosphatase 48 U/L (45-117); Anion Gap 11 (5-15); BUN 42 mg/dL (7-18); BUN/Creat Ratio 26.9 RATIO (10-20); Chloride 103 mmol/L (98-107); Creatinine, Serum 1.56 mg/dL (0.55-1.02); EST Glomerular Filtration Rate 35 mL/min (>60); Est Glom Filt Rate - Afr Amer 42 mL/min (>60); Estimated Creatinine Clearance 42.77 ml/min; Globulin 3.3 g/dL (2.2-4.2); Glucose 140 mg/dL (74-106); Potassium 4.5 mmol/L (3.5-5.1); Protein, Total 6.1 g/dL (6.4-8.2); Sodium Level 140 mmol/L (136-145); Troponin-I HS 27 pg/mL (3.0-54.0)
[2024-02-10 13:06] LABS: Color, Urine Yellow (Yellow); Glucose, Dipstick Normal (Normal); Ketone-Dipstick 5 mg/dl (Negative); Leukocyte Esterase-Dipstick 25 /ul (Negative); Nitrite-Dipstick Negative (Negative); Occult Blood-Urine 50 /ul (Negative); Protein-Dipstick 30 mg/dl (Negative); Specific Gravity, Urine 1.025 (1.002-1.030); Urine Clarity Cloudy (Clear); Urine Urobilinogen 1 mg/dl (Normal)
[2024-02-10 13:07] LABS: Urine Bilirubin Dipstick 1 mg/dL (Negative)
[2024-02-10 13:10] LABS: Lactic Acid 2.2 mmol/L (0.4-1.9)
[2024-02-10 13:12] LABS: Coarse Granular Cast 0-5 SEEN /lpf (0-5 /lpf); Hyaline Cast 10-25 SEEN /lpf (0-5)
[2024-02-10 13:13] LABS: Amorphous Sediment 2+; Calcium Oxalate Crystals Ur 1+ /hpf (<or=2+); Red Blood Cells-Urine 5-10 SEEN /hpf (0-5); Squamous Epithelial Cells - UA 0-5 SEEN /hpf (5-10); White Blood Cells 0-5 SEEN /hpf (0-5)
[2024-02-10 13:14] LABS: Bacteria 3+ /hpf (None Seen); Mucous, Urine 1+ /hpf (<or=2+)
--- NOTE | 2024-02-10 13:47 | ED.RN ---
Called pharmacy for antibiotic
[2024-02-10] MEDS: levoFLOXacin IV 750 MG/150 ML BAG 100 MG IV (14:02)
--- NOTE | 2024-02-10 14:02 | ED.RN ---
Patient's emergency contact, Gabbie, called per patient's request by this RN.
--- NOTE | 2024-02-10 14:29 | PCM.HP.STD ---
HPI - General General Date of Admission: 02/10/24 Date of Service: 02/10/24 Chief Complaint: Fatigue/dyspnea with exertion/worsening lower extremity edema HPI Narrative RAFIQ ALCANTAR, is a 68 F who presented to the emergency department at [facility] on 02/10/2024 with a chief complaint of generalized weakness and the inability to care for self at home. She had a recent hospitalization here from 02/05/2024 through 02/08/2024 at which time she was admitted for CHRISTINA and hypotension which both appeared to be improved with volume expansion. At that time she had been on valsartan/HCTZ which was discontinued and she was instructed to follow-up with her outpatient provider for blood pressure reassessment and need. The patient indicates that she has had worsening fatigue and dyspnea with exertion since about 2 weeks after hospitalization she had here in the end of September. She stated family/friends came in from out of town and she was feeling poorly enough when that occurred but she let them help her and did not do much for herself and has not been able to do much for herself since that point in time. She complains of worsening shortness of breath with any type of exertion and significant fatigue. She has been compliant with her home medications. She also is reporting pain in her legs and worsening swelling with significant bruising. She denies any known injury but her skin is quite fragile due to the chronic lymphedema below her knees. She has an upcoming appointment with Dr. Vanegas but has not followed with him as of yet. She was seen by physical therapy on the day of discharge 02/08/2024 and required minimal assist of 1 from supine to sit standby assist for sit to stand, contact-guard for stand pivot and ambulated 20 feet with a wheeled walker and felt she could have ambulated further per documentation. She did have some dizziness at that time and additional therapy was recommended. She was seen by social work and case management during that hospitalization and reported to case management on the day of discharge that she was going home and she was asked if she felt safe. She did indicate that she did feel safe but just needed someone who could help carry her groceries and prepare meals and do housekeeping tasks at that time. She denied any need for home health but was interested in private duty resources and meals. Information was provided. At this point she feels that she is debilitated enough that she may need placement at the time of discharge and is agreeable to that at the time of admission. Vital signs on presentation showed a temperature of 96.3, heart rate 78, blood pressure 149/36 with a repeat at 103/40 9-1/3 at 124/69, respiratory rate was 24 and pulse ox was 94% on room air. Her CBC did show a leukocytosis with a white count of 16.1 with an 81% neutrophilia. Her chemistry panel showed normal electrolytes however BUN and creatinine were elevated again at 42 and 1.56. Her baseline creatinine appears to run between 0.8-1.0. This had normalized at discharge from her last hospitalization and was 0.84 at that time. Her glucose was 140. She had a mildly elevated lactate of 2.2 that corrected after IV fluids to 1.3. Bilirubin was 1.6 however she has chronic elevation. Troponin was 27 and BNP was 54.9. TSH was 0.89. Her UA showed dehydration with a urine specific gravity of 1.025, occult blood with negative nitrite but positive leuk esterase no white cells but she did have 3+ bacteria and was symptomatic. EKG was unremarkable for any acute findings and showed normal intervals with no ST-T wave changes. Chest x-ray showed no acute abnormality. I did obtain a CT of the chest due to her dyspnea on exertion complaints and this showed atherosclerotic heart disease without evidence of aortic aneurysm and postsurgical changes of the left upper lobe with chronic mild interstitial changes and scattered subcentimeter nodules that have not changed from previous study. She is on chronic rivaroxaban so we did not feel a contrasted imaging was necessary. She was treated with IV antibiotics in the emergency department and request for admission was made. She was given IV fluids as well for what appears to be dehydration. [facility] Medical History Kidney disease GI bleed DVT (deep venous thrombosis) Atrial fibrillation Chest pain On home oxygen therapy Hyperbilirubinemia Lymphedema Shakiness Fatigue Mild cognitive impairment Secondary hyperparathyroidism Secondary adrenal insufficiency Cellulitis of leg Hyponatremia Hyperparathyroidism Sacroiliitis Weight loss Unintentional weight loss Screening for colon cancer Left ureteral calculus Paroxysmal atrial fibrillation Essential hypertension Skin lesion Thrombocytosis Chronic pain Former smoker CPAP (continuous positive airway pressure) dependence Sleep apnea A-fib New onset a-fib History of echocardiogram Chronic bronchitis History of blood transfusion Pulmonary HTN Bone fracture Vitamin deficiency Skin cancer PNE Back problem Osteoporosis Osteopenia OA (osteoarthritis) Arthritis Gastrointestinal distress Gallstones COPD (chronic obstructive pulmonary disease) Anemia Seasonal allergies Pancreatic divisum Fibromyalgia Immunodeficiency disorder, selective immunoglobulin Asthma Crohns disease HTN (hypertension) GERD (gastroesophageal reflux disease) SARAHY (obstructive sleep apnea) Hypertension Home Medications ?Medication ?Instructions ?Recorded ?Last Taken ?Type pantoprazole 40 mg tablet,delayed 40 mg PO DAILY PRN Acid Reflux 05/29/20 10/18/23 History release diphenoxylate-atropine 2.5 5 tab PO DAILY Diarrhea/Loose 09/06/20 10/18/23 History mg-0.025 mg tablet Stools levothyroxine 50 mcg tablet 50 mcg PO DAILY thyroid 12/09/21 10/18/23 History ammonium lactate 12 % topical cream 1 applic topical BID dry legs 05/12/22 10/18/23 History sildenafil (pulm.hypertension) 20 20 mg PO TID Pulmonary HTN 05/12/22 Unknown History mg tablet budesonide-formoterol HFA 160 2 puff inhalation BID PRN SOB 09/24/22 10/18/23 History mcg-4.5 mcg/actuation aerosol inhaler (Symbicort) lidocaine 5 % topical patch 1 patch topical DAILY PRN pain 09/24/22 10/18/23 History Prolia 60 mg/mL subcutaneous 60 mg subcut [id number] #1 mL 12/22/22 Unknown Rx syringe (denosumab) rivaroxaban 20 mg tablet (Xarelto) 20 mg PO DAILY Please change 06/09/23 Unknown Rx quantity to 30 days #30 tabs digoxin 125 mcg (0.125 mg) tablet 125 mcg PO DAILY heart #90 tabs 08/24/23 10/18/23 Rx morphine 15 mg tablet,extended 15 mg PO TID PAIN 10/09/23 10/18/23 History release IVIG INFUSION 10/18/23 Unknown History loratadine 10 mg tablet (Allergy 10 mg PO DAILY PRN allergy symptoms 10/18/23 Unknown History Relief (loratadine)) montelukast 10 mg tablet 10 mg PO DAILY PRN pain 10/18/23 10/18/23 History amiodarone 200 mg tablet 100 mg PO Q24H ARRHYTHMIA 02/05/24 Unknown History baclofen 10 mg tablet 10 mg PO QHS 02/05/24 Unknown History cholecalciferol (vitamin D3) 25 25 mcg PO DAILY 02/05/24 Unknown History mcg (1,000 unit) capsule (Vitamin D3) prednisone 20 mg tablet 20 mg PO BID 02/05/24 Unknown History Allergy/AdvReac Type Severity Reaction Status Date / Time codeine Allergy Severe ANGIOEDEMA/LEG Verified 02/05/24 17:41 SWELLING Penicillins Allergy Severe ANGIOEDEMA/LEG Verified 02/05/24 17:41 SWELLING Sulfa (Sulfonamide Allergy Severe ANGIOEDEMA/LEG Verified 02/05/24 17:41 Antibiotics) SWELLING sulfasalazine (From Allergy Severe ANGIOEDEMA/LEG Verified 02/05/24 17:41 Azulfidine) SWELLING Family History Father Anemia Heart disease Hypertension CVA (cerebral vascular accident) Mother Arthritis Cancer Osteoporosis Sister Arthritis Lung disease Surgical History History of cholecystectomy History of appendectomy History of kyphoplasty (~07/07/16) Leg fracture, right History of left knee replacement History of tonsillectomy History of total hysterectomy with bilateral salpingo-oophorectomy (BSO) History of pneumonectomy History of resection of small bowel History of right heart catheterization (RHC) (~05/09/16) Social History Smoking Status: Former smoker how long ago did patient quit smokin second hand exposure: No alcohol intake: current alcohol intake frequency: other substance use type: does not use caffeine: Yes Type: carbonated beverages, coffee and tea what type of physical activity do you participate in: none seatbelt use: always 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 Constitutional Constitutional: Reports fatigue, malaise and weakness; Denies anorexia, change in weight, chills, fever(s), night sweats or other Eyes Eyes: Denies blurry vision, change in eye color, change in vision, discharge from eye(s), double vision, erythema, eye pain, loss of vision or other ENT HEENT: Denies abnormal hearing, dysphagia, ear pain, epistaxis, headache(s), hearing loss, nasal congestion, nasal discharge, post nasal drip, sinus pressure, sore throat or other Cardiovascular Cardiovascular: Reports dyspnea on exertion and edema; Denies chest pain, claudication, lightheadedness, orthopnea, palpitations, paroxysmal nocturnal dyspnea, rapid heart rate, syncope or other Respiratory/Chest Respiratory/Chest: Reports shortness of breath with exertion; Denies cough, dyspnea, excessive phlegm production, hemoptysis, productive cough, shortness of breath at rest, wheezing or other Gastrointestinal Gastrointestinal: Denies abdominal pain, coffee ground emesis, constipation, diarrhea, dyspepsia, hematemesis, hematochezia, loose stools, melena, nausea, vomiting or other Genitourinary Genitourinary: Reports dysuria; Denies burning urination, difficulty urinating, hematuria, nocturia, urinary frequency, urinary hesitancy, urinary incontinence, urinary urgency or other Musculoskeletal Musculoskeletal: Denies arthralgias, back pain, joint pain, joint stiffness, joint swelling, myalgias, neck pain or other Neurologic Neurologic: Denies abnormal gait, abnormal speech, confusion, disequilibrium, dizziness, focal weakness, headache(s), numbness, paresthesias, seizure-like activity, seizures, syncope, tingling, tremor(s) or other Psychiatric Psychiatric: Denies anxiety, depression, homicidal ideation, suicidal ideation or other Endocrine Endocrinology: Denies change in body appearance, cold intolerance, excessive sweating, heat intolerance, polydipsia, polyuria or other Hematologic/Lymphatic Hematologic/Lymphatic: Reports easy bleeding, easy bruising and other Details: Chronic lower extremity lymphedema ; Denies anemia or lymphadenopathy Allergic/Immunologic Allergic/Immunologic: Denies rhinitis, hives, eczemia, asthma or other Vital Signs Vital Signs Vital Signs: 02/10/24 11:40 02/10/24 13:39 02/10/24 14:03 Temperature 98.3 F 98.1 F Temperature Source Temporal Pulse Rate 78 101 H 93 Respiratory Rate 24 H 23 H 14 Blood Pressure 149/136 H 103/49 L 125/69 H Blood Pressure Mean 140 67 87 Pulse Ox 94 94 97 Oxygen Delivery Method Room Air Room Air 02/10/24 14:04 Temperature 98.1 F Temperature Source Temporal Pulse Rate 93 Respiratory Rate 16 Blood Pressure 125/69 H Blood Pressure Mean 87 Pulse Ox 97 Oxygen Delivery Method Room Air Weight Weight: 112.9 kg Body Mass Index (BMI) 40.1 Physical Exam Const alert, oriented x3, no apparent distress and well nourished; Negative for average body habitus or healthy appearing Constitutional Narrative: Very pleasant, morbidly obese, white female, sitting up in bed, does not appear toxic or acutely ill but appears fatigued, appears chronically ill General Appearance: cooperative HEENT normocephalic, head/scalp atraumatic and hearing grossly normal bilaterally Eyes PERRL, EOMs intact bilaterally and conjunctivae normal Eyes Narrative: No scleral icterus Neck no lymphadenopathy, supple and no JVD Neck Narrative: Trachea midline, no thyroid enlargement Resp normal respiratory effort, no retractions, no use of accessory muscles and clear to auscultation bilaterally Cardio regular rate, regular rhythm, S1 normal heart sound, S2 normal heart sound, no murmurs, no rub, no gallops and no clicks GI normal to inspection, nondistended, normoactive bowel sounds, soft to palpation and non-tender Extremity Extremity Narrative: Marked bilateral lower extremity distal lymphedema with significant ecchymosis bilaterally right greater than left, area of about the size of a lemon on the lateral aspect of her right lower extremity that is indurated and appears consistent with a hematoma, the area is very tender, edema looks worse than baseline from my previous evaluations of her remotely, no cyanosis or clubbing this is a Leticia level he Neuro oriented x3, moves all extremities and no focal motor deficits Neuro Narrative: Moves all extremities but significant weakness proximal greater than distal and has difficulty Speech: speech normal Psych Psych Narrative: Patient appears frustrated and affect is slightly flat compared to previous but eye contact is good and patient interacts appropriately Results Lab / Micro Data 02/10/24 12:19 02/10/24 12:19 Labs: Laboratory Results - last 24 hr 02/10/24 12:19: WBC 16.1 H, RBC 4.58, Hgb 13.8, Hct 44.9, MCV 98.0, MCH 30.1, MCHC 30.7 L, RDW Std Deviation 54.8 H, RDW Coeff of Curtis 15.2 H, Plt Count 386, MPV 9.1, Immature Gran % (Auto) 2.600 H, Neut % (Auto) 81.0 H, Lymph % (Auto) 9.5 L, Mills % (Auto) 6.3, Eos % (Auto) 0.4, Baso % (Auto) 0.2, Absolute Neuts (auto) 13.0 H, Absolute Lymphs (auto) 1.52, Nucleated RBC % 0, Sodium 140, Potassium 4.5, Chloride 103, Carbon Dioxide 26.0, Anion Gap 11, BUN 42 H, Creatinine 1.56 H, Estim Creat Clear Calc 42.77, Est GFR (MDRD) Af Amer 42 L, Est GFR (MDRD) Non-Af 35 L, BUN/Creatinine Ratio 26.9 H, Glucose 140 H, Lactic Acid 2.2 H*, Calcium 9.0, Total Bilirubin 1.60 H, AST 9 L, ALT 16, Alkaline Phosphatase 48, Troponin I High Sens 27, Total Protein 6.1 L, Albumin 2.8 L, Globulin 3.3, Albumin/Globulin Ratio 0.8 L 02/10/24 12:58: Urine Color Yellow, Urine Clarity Cloudy, Urine pH 5.0, Ur Specific Wilder 1.025, Urine Protein 30 H, Urine Glucose (UA) Normal, Urine Ketones 5 H, Urine Occult Blood 50 H, Urine Nitrite Negative, Urine Bilirubin 1 H, Urine Urobilinogen 1 H, Ur Leukocyte Esterase 25 H, Urine RBC 5-10 SEEN, Urine WBC 0-5 SEEN, Ur Squamous Epith Cells 0-5 SEEN, Calcium Oxalate Crystal 1+, Amorphous Sediment 2+, Urine Bacteria 3+, Hyaline Casts 10-25 SEEN, Coarse Granular Casts 0-5 SEEN, Urine Mucus 1+ Imaging Radiology Impression Chest X-Ray 02/10/24 12:40 IMPRESSION: No acute abnormality is seen. Stable examination. Electronically Signed: Raul Padilla MD at 13:35 EDT , Assessment & Plan Assessment/Plan (1) Elevated digoxin level: (2) Acute lactic acidosis: (3) Abnormal finding on urinalysis: (4) Generalized muscle weakness: (5) Fatigue: (6) Dyspnea on exertion: (7) CHRISTINA (acute kidney injury): (8) Leukocytosis: (9) Hematoma of right lower leg: PLAN: Plan WARNER/Fatigue -check echo -check Stress test -check b12 -check folate -TSH was within normal limits -I did check digoxin level and it was elevated so we will hold and repeat level in a.m. -CT of the chest is unremarkable for any acute findings that would cause dyspnea -If cardiac workup is unremarkable will need follow-up with pulmonary to have outpatient PFTs Abnormal UA with possible UTI -Patient with frequency but no dysuria -UA was suggestive of infection -Urine cultures pending -Continue Levaquin--> I will dose 750 daily as I do anticipate her renal function should improve rapidly with IV fluids -If renal function does not improve may need to adjust dosing Lactic acidosis -Suspect related to dehydration as a cleared quickly -Elevation is mild -Does not appear to be drug related -Patient does appear to be a bit dry as her UA shows a specific gravity of 1.025, ketones and she has amorphous sediment and calcium oxalate crystals along with hyaline casts CHRISTINA -Baseline serum creatinine prior to last hospitalization was between 0.8 and 1.0 -During that hospitalization she did improve and trended down to 0.84 but has trended back up today with a serum creatinine of 1.56 -Appears dehydrated -Continue IV fluids with LR at 100 cc/h Digoxin toxicity -Dig levels elevated at 2.12 -Likely related to decreased clearance with fluctuating renal function due to dehydration -Hold digoxin for now -Repeat dig level in a.m. Leukocytosis -Suspect multifactorial with dehydration and possible UTI -Repeat lab in a.m. Chronic lower extremity lymphedema/subcutaneous hematoma right lower extremity -Consult vascular surgery--> discussed with Dr. Vanegas -Hold on imaging for now until evaluated by vascular surgery Generalized weakness/failure to thrive -Patient states she is currently not able to take care of herself -Again suspect multifactorial with decreased utilization due to dyspnea on exertion -PT/OT consultation -CM/social work consultation and highly anticipate patient will need placement at the time of discharge -Patient would like to go to TCU with possible Hyperbilirubinemia-chronic -Baseline bilirubin level appears to be between 1.3 and 1.7 -Currently 1.6 and mildly elevated from previous however suspect this is related to volume status -Patient does have known liver cirrhosis -Patient follows with Dr. Redman as an outpatient Liver cirrhosis -Follows with Dr. Redman -No signs of decompensated liver disease currently -Continue home rifaximin IgG subclass deficiency -History of frequent bacterial respiratory infections -Receives IVIG monthly infusions via hematology/oncology as an outpatient with most recently infused on 12/29/2023 History of atrial fibrillation -Continue home amiodarone -Hold dig as dig level is elevated -Continue home rivaroxaban -May need to adjust dose tomorrow if renal function does not improve Obstructive sleep apnea -Patient is not compliant with CPAP at home -Monitor for supplemental oxygen needs Chronic thrombocytosis -Platelet count is currently at baseline -Will continue to monitor Hypothyroidism -Continue home levothyroxine Pulmonary hypertension -Continue home sildenafil 20 mg 3 times daily History of nephrolithiasis -No obstructing stones noted at this time Osteoporosis -Patient is on outpatient Prolia -Continue home vitamin D and calcium supplementation Crohn's disease -Continue home prednisone -History of multiple bowel resections COPD -Continue inhalers -As needed aerosols Chronic pain -Continue home morphine DVT prophylaxis -Continue home rivaroxaban CODE STATUS -Full code Charges/Coding Visit Charges Inpatient E&M: 72623 Init Hosp L3
[2024-02-10 15:13] LABS: BNP,B-Type NATRIURETIC PEPTIDE 54.9 pg/mL (0-100)
--- NOTE | 2024-02-10 15:15 | ECHOCS_ITS ---
Reason For Study: WARNER Procedure This was a 2D Doppler, Color Flow transthoracic echocardiogram. The study was technically difficult. Contrast injection was performed. Patient scanned supine due to condition and could not tolerate slight probe pressure. Exam performed in department. Left Ventricle Normal LV size. Mild concentric left ventricular hypertrophy. Hyperdynamic left ventricle with estimated LVEF 75%. Stage II diastolic dysfunction. Increased LVOT gradient likely secondary to hyperdynamic LV. Right Ventricle Normal right ventricle. Atria The left atrium is severely enlarged. Normal right atrium. Mitral Valve There is Severe focal posterior mitral annular calcification. Trivial mitral valve insufficiency. Tricuspid Valve Trivial tricuspid valve insufficiency. Right ventricular systolic pressure estimated to be 64 mmHg. Aortic Valve Trisinus/trileaflet aortic valve. There is no aortic stenosis. No aortic valve insufficiency. Pulmonic Valve The pulmonic valve is not well visualized. Great Vessels Normal sized aortic root. Pericardium/Pleural No pericardial effusion. Medication Diluted definity 2.5ml given slow IV push to enhance endocardial definition. MMode/2D Measurements & Calculations LVIDd: 4.0 cm IVSd: 1.4 cm Ao root diam: 3.6 cm LVIDs: 2.3 cm LVPWd: 1.3 cm RVDd: 4.1 cm FS: 43.5 % LAV(MOD-bp): 100.4 ml Ao sinus diam: 3.[address] Junction: 2.9 cm LAV(MOD-bp) Indexed: 45.8 ml/m2 LAV(MOD-sp2): 106.0 ml LAV(MOD-sp4): 91.4 ml LA dimension(2D): 3.8 cm LA A4 area: 28.6 cm2 RA A4 area: 18.5 cm2 TAPSE: 2.1 cm Time Measurements MV dec time: 0.26 sec Doppler Measurements & Calculations MV E max ralph: 85.2 cm/sec Lat Peak E' Ralph: 9.3 cm/sec Med Peak E' Ralph: 8.3 cm/sec MV A max ralph: 147.8 cm/sec E/E' lat: 9.2 E/E' med: 10.2 MV E/A: 0.58 MV V2 max: 160.5 cm/sec MV P1/2t max ralph: 84.0 cm/sec Ao V2 max: 237.2 cm/sec MV max P.3 mmHg MV P1/2t: 82.5 msec Ao max P.7 mmHg MV V2 mean: 77.3 cm/sec MV dec slope: 298.2 cm/sec2 Ao V2 mean: 175.0 cm/sec MV mean P.0 mmHg Ao mean P.8 mmHg MV V2 VTI: 29.2 cm MVA(P1/2t): 2.7 cm2 Ao V2 VTI: 49.3 cm PA V2 max: 101.1 cm/sec TR max ralph: 350.9 cm/sec PA max PG (full): 1.0 mmHg TR max P.3 mmHg ECHO/Echo Complete W/ Contrast Interpretation Summary The study was technically difficult. Mild concentric left ventricular hypertrophy. Hyperdynamic left ventricle with estimated LVEF 75%. Stage II diastolic dysfunc tion. Increased LVOT gradient likely secondary to hyperdynamic LV. The left atrium is severely enlarged. There is Severe focal posterior mitral annular calcification. Right ventricular systolic pressure estimated to be 64 mmHg. Ordering Physician: Joya Clemente Performed By: Mehdi Hester RCS
--- NOTE | 2024-02-10 15:15 | CT_ITS ---
INDICATION: sob EXAMINATION: CT CHEST WITHOUT CONTRAST - CT Chest W/O Contrast Injection TECHNIQUE: Helically acquired images were obtained of the chest. A radiation dose optimization technique was used for this scan. IV Contrast dosage and agent: None. COMPARISON: October 20, 2020 FINDINGS: LUNGS, PLEURA AND LARGE AIRWAYS: Postsurgical changes in the left pulmonary apex with mild pleural parenchymal scar Mild bilateral interstitial thickening with scattered subcentimeter pulmonary nodules not changed appreciably since prior exam.. No pleural effusion or thickening. No pneumothorax. THYROID: No thyroid lesions. HEART AND PERICARDIUM: Heart size is normal. No pericardial effusion. CORONARY ARTERIES: Multifocal coronary artery calcification VESSELS: Mild atherosclerotic change of the aorta without evidence for aneurysm. MEDIASTINUM AND JAISON: No mediastinal or hilar adenopathy. Esophagus is unremarkable. No hiatal hernia. UPPER ABDOMEN: Large gallstone noted without pericholecystic edema BONES: Dorsal spine demonstrates degenerative change No suspicious lytic or blastic abnormality. CT/Chest without Contrast IMPRESSION: ASHD without evidence for aortic aneurysm. Postsurgical changes in left upper lobe Mild chronic interstitial changes and scattered subcentimeter nodules not changed appreciably since prior study No focal consolidation Electronically Signed: Bang Roach MD at 16:11 EDT ,
[2024-02-10 15:54] LABS: Thyroid Stim Hormone (TSH) 0.889 uIU/mL (0.358-3.740)
[2024-02-10 16:08] LABS: Digoxin Level 2.12 ng/mL (0.80-2.00)
--- NOTE | 2024-02-10 16:19 | NURSING ---
MARY ANN TREJO GENERALIZED WEAKNESS, DYSPNEA ON EXERTION
[2024-02-10 16:27] LABS: Reflex Lactate? Y
[2024-02-10 17:25] LABS: Lactic Acid 1.3 mmol/L (0.4-1.9)
[2024-02-10 20:58] LABS: Troponin-I HS 24 pg/mL (3.0-54.0)
[2024-02-10] MEDS: Ammonium Lactate 225 gm Bottle 1 APPLIC TOPICAL (21:20)
[2024-02-10] MEDS: Lactated Ringers 1,000 ML 100 ML IV (21:20)
[2024-02-10] MEDS: Baclofen 10 MG Tablet PO ×2 (21:21→21:22)
[2024-02-10] MEDS: Acetaminophen 500 MG Tablet 1000 MG PO (21:21)
[2024-02-10] MEDS: predniSONE 20 MG Tablet PO (21:22)
[2024-02-10] MEDS: SILDENAFIL CITRATE 20 MG TABLET PO (21:22)
[2024-02-10] MEDS: Amiodarone 200 MG Tablet 100 MG PO (21:22)
[2024-02-10] MEDS: morphine SR 15 MG Tablet PO (21:31)
[2024-02-10 22:27] LABS: Troponin-I HS 23 pg/mL (3.0-54.0)
[2024-02-11] VITALS (10 sets, daily range): BP systolic 72–125; BP diastolic 48–64; PULSE 74–100; RESP 15–19; TEMP 36.6–36.7; O2SAT 91–98
[2024-02-11 03:06] LABS: Absolute Lymphocyte Count 0.45 X10^3/uL (0.83-4.51); Absolute Neutrophil Count 13.8 X10^3/uL (2.0-7.7); Basophil# 0.03 X10^3/uL; Basophil% 0.2 % (0-1); Hematocrit 35.3 % (37-47); Hemoglobin 10.8 g/dL (12.0-15.0); Lymphocyte # 0.45 X10^3/ul (0.83-4.51); Lymphocyte % 2.9 % (19-41); Mean Corp Hgb Conc 30.6 g/dL (32-36); Mean Corpuscular Hgb 30.3 pg (27.0-32.0); Mean Corpuscular Volume 99.2 fL (81-99); Mean Platelet Vol. 9.1 fl (6.2-12.0); Monocyte% 4.5 % (0-10); NRBC Flagged by Analyzer 0 % (0-5); Neutrophil # 13.82 X10^3/uL (2.7-7.7); Neutrophil % 89.7 % (47-70); POSITIVE DIFFERENTIAL YES; Platelet Count 280 K/mm3 (150-450); RBC Distribution Width SD 54.6 fl (35.1-43.9); Red Blood Count 3.56 M/mm3 (4.2-5.4); White Blood Count 15.4 K/mm3 (4.4-11.0)
[2024-02-11 03:25] LABS: AST(SGOT) 11 U/L (15-37); Alanine Aminotransfer ALT/SGPT 14 U/L (13-56); Albumin, Serum 2.2 g/dL (3.2-5.0); Alkaline Phosphatase 35 U/L (45-117); Anion Gap 2 (5-15); BUN 44 mg/dL (7-18); BUN/Creat Ratio 34.6 RATIO (10-20); Calcium,Total 8.5 mg/dL (8.5-10.1); Chloride 104 mmol/L (98-107); Creatinine, Serum 1.27 mg/dL (0.55-1.02); EST Glomerular Filtration Rate 44 mL/min (>60); Est Glom Filt Rate - Afr Amer 54 mL/min (>60); Estimated Creatinine Clearance 52.76 ml/min; Globulin 2.2 g/dL (2.2-4.2); Glucose 124 mg/dL (74-106); Magnesium 2.2 mg/dL (1.6-2.6); Phosphorus 3.3 mg/dL (2.5-4.9); Potassium 5.1 mmol/L (3.5-5.1); Protein, Total 4.4 g/dL (6.4-8.2); Sodium Level 138 mmol/L (136-145)
[2024-02-11 03:26] LABS: Troponin-I HS 25 pg/mL (3.0-54.0)
--- NOTE | 2024-02-11 05:55 | EKG12_ITS ---
Test Reason : MORNING EKG Blood Pressure : / mmHG Vent. Rate : 087 BPM Atrial Rate : 087 BPM P-R Int : 154 ms QRS Dur : 076 ms QT Int : 322 ms P-R-T Axes : 050 023 048 degrees QTc Int : 387 ms Normal sinus rhythm Normal ECG When compared with ECG of 10-FEB-2024 12:25, MANUAL COMPARISON REQUIRED, DATA IS UNCONFIRMED Confirmed by Dewayne Perrin ([id number]), editorial assistant ADRIANE ANTUNEZ ([id number]) on 02/15/2024 10:50:56 AM Referred By: Confirmed By:Dewayne Perrin
[2024-02-11] MEDS: Lactated Ringers 1,000 ML 100 ML IV (05:56)
--- NOTE | 2024-02-11 07:12 | PCM.PN.HOSP ---
Reason for Visit Reason for Visit: Diagnoses Elevated white blood cell count, unspecified (02/10/24) Acute metabolic acidosis (02/10/24) Muscle weakness (generalized) (02/10/24) Acute kidney failure, unspecified (02/10/24) Other forms of dyspnea (02/10/24) Other fatigue (02/10/24) Finding of other specified substances, not normally found in blood (02/10/24) Unspecified abnormal findings in urine (02/10/24) Contusion of right lower leg, initial encounter (02/10/24) Objective Data Objective Data Vital Signs: Vital Signs Temp Pulse Resp BP Pulse Ox O2 Del Method O2 Flow Rate 97.8 F 74 19 H 125/58 H 96 Nasal Cannula 2 02/11/24 06:00 02/11/24 06:00 02/11/24 06:00 02/11/24 06:00 02/11/24 06:00 02/11/24 06:00 02/11/24 06:00 Oxygen Flow Rate (L/min) 2 Oxygen Delivery Method Nasal Cannula Weight: 258 lb 6.4 oz Body Mass Index (BMI) 43.0 Intake & Output: Intake and Output for Last 24 Hours 02/09/24 02/10/24 02/11/24 23:59 23:59 23:59 Intake Total 390 / 390 860 / 860 Balance 390 / 390 860 / 860 Lab / Micro Data 02/11/24 02:44 02/11/24 02:44 Labs: Laboratory Results - last 24 hr 02/10/24 12:19: WBC 16.1 H, RBC 4.58, Hgb 13.8, Hct 44.9, MCV 98.0, MCH 30.1, MCHC 30.7 L, RDW Std Deviation 54.8 H, RDW Coeff of Curtis 15.2 H, Plt Count 386, MPV 9.1, Immature Gran % (Auto) 2.600 H, Neut % (Auto) 81.0 H, Lymph % (Auto) 9.5 L, [place] % (Auto) 6.3, Eos % (Auto) 0.4, Baso % (Auto) 0.2, Absolute Neuts (auto) 13.0 H, Absolute Lymphs (auto) 1.52, Nucleated RBC % 0, Sodium 140, Potassium 4.5, Chloride 103, Carbon Dioxide 26.0, Anion Gap 11, BUN 42 H, Creatinine 1.56 H, Estim Creat Clear Calc 42.77, Est GFR (MDRD) Af Amer 42 L, Est GFR (MDRD) Non-Af 35 L, BUN/Creatinine Ratio 26.9 H, Glucose 140 H, Lactic Acid 2.2 H*, Calcium 9.0, Total Bilirubin 1.60 H, AST 9 L, ALT 16, Alkaline Phosphatase 48, Troponin I High Sens 27, Total Protein 6.1 L, Albumin 2.8 L, Globulin 3.3, Albumin/Globulin Ratio 0.8 L 02/10/24 12:58: Urine Color Yellow, Urine Clarity Cloudy, Urine pH 5.0, Ur Specific [place] 1.025, Urine Protein 30 H, Urine Glucose (UA) Normal, Urine Ketones 5 H, Urine Occult Blood 50 H, Urine Nitrite Negative, Urine Bilirubin 1 H, Urine Urobilinogen 1 H, Ur Leukocyte Esterase 25 H, Urine RBC 5-10 SEEN, Urine WBC 0-5 SEEN, Ur Squamous Epith Cells 0-5 SEEN, Calcium Oxalate Crystal 1+, Amorphous Sediment 2+, Urine Bacteria 3+, Hyaline Casts 10-25 SEEN, Coarse Granular Casts 0-5 SEEN, Urine Mucus 1+ 02/10/24 14:39: B-Natriuretic Peptide 54.9 02/10/24 15:14: TSH 0.889, Digoxin 2.12 H* 02/10/24 16:42: Lactic Acid 1.3 02/10/24 20:22: Troponin I High Sens 24 02/10/24 21:58: Troponin I High Sens 23 02/11/24 02:44: WBC 15.4 H, RBC 3.56 L, Hgb 10.8 L, Hct 35.3 L, MCV 99.2 H, MCH 30.3, MCHC 30.6 L, RDW Std Deviation 54.6 H, RDW Coeff of Curtis 15.0 H, Plt Count 280, MPV 9.1, Immature Gran % (Auto) 2.700 H, Neut % (Auto) 89.7 H, Lymph % (Auto) 2.9 L, [place] % (Auto) 4.5, Eos % (Auto) 0.0, Baso % (Auto) 0.2, Absolute Neuts (auto) 13.8 H, Absolute Lymphs (auto) 0.45 L, Nucleated RBC % 0, Sodium 138, Potassium 5.1, Chloride 104, Carbon Dioxide 32.0, Anion Gap 2 L, BUN 44 H, Creatinine 1.27 H, Estim Creat Clear Calc 52.76, Est GFR (MDRD) Af Amer 54 L, Est GFR (MDRD) Non-Af 44 L, BUN/Creatinine Ratio 34.6 H, Glucose 124 H, Calcium 8.5, Phosphorus 3.3, Magnesium 2.2, Total Bilirubin 1.40 H, AST 11 L, ALT 14, Alkaline Phosphatase 35 L, Troponin I High Sens 25, Total Protein 4.4 L, Albumin 2.2 L, Globulin 2.2, Albumin/Globulin Ratio 1.0 Radiography Diagnostic Testing: Radiology Impression Chest X-Ray 02/10/24 12:40 IMPRESSION: No acute abnormality is seen. Stable examination. Electronically Signed: Raul Padilla MD at 13:35 EDT , Chest CT 02/10/24 15:15 IMPRESSION: ASHD without evidence for aortic aneurysm. Postsurgical changes in left upper lobe Mild chronic interstitial changes and scattered subcentimeter nodules not changed appreciably since prior study No focal consolidation Electronically Signed: Bang Roach MD at 16:11 EDT , Physical Exam Narrative Seen and examined. Patient was admitted for not able to take care of herself, generalized weakness. She was felt too weak to get out of the chair. She could not even go to the bathroom. Impaired ADL She saw PCP next day after discharge on 02/08/2024 Physical exam General: Alert, Oriented x3, Cooperative HEENT: Atraumatic, PERRLA, EOMI, Normocephalic Oral: No Gingival or Mucosal Lesions/ Ulcerations Neck: Supple, No JVD, Negative Carotid Bruits Chest wall/Lungs: Air entry diminished in bilateral lungs. Lungs clear. Mild bilateral expiratory rhonchi. Cardiovascular: Regular rate, Regular Rhythm, Normal S1, Normal S2, No M/G/R Abdomen: Bowel Sounds Present, Soft, Non Tender, Non-Distended. Multiple surgical scars. : No dysuria. No renal angle tenderness. No suprapubic tenderness. Extremities: Chronic bilateral lymphedema uses lymphedema pump, chronic fibrosis and thickening of subcutaneous tissue of lower legs. Skin: No rashes, No breakdown Musculoskeletal: No Tenderness to Palpation of Joints or Extremities Neurological: Cranial nerves II-XII grossly intact, DTR 2+/4. No acute focal neurological deficit. Psych/Mental Status: Flat affect Assessment & Plan Assessment/Plan (1) Elevated digoxin level: (2) Dyspnea on exertion: (3) CHRISTINA (acute kidney injury): (4) Hematoma of right lower leg: PLAN: Plan 68-year-old female was admitted for generalized weakness, unable to care for herself. She was just discharged home on 02/07. She could not get out of the chair. 1. Dyspnea on exertion on fatigue most likely due to her physical/body habitus of bilateral lower extremity lymphedema. Patient is admitted in PCU. Serial troponins negative. Pharmacological nuclear stress test does not show ischemic changes and reported perfusion appearing within normal limit. 2D echo shows mild concentric LVH, hyperdynamic LV with EF 75%, stage II diastolic dysfunction. LA severely enlarged. RVSP 64 mmHg. Serum magnesium and phosphorus level normal. Lactic acid normal. Digoxin was elevated. -CT of the chest is unremarkable for any acute findings that would cause dyspnea -If cardiac workup is unremarkable will need follow-up with pulmonary to have outpatient PFTs Abnormal UA, UTI ruled out.. Previous urine culture from shows yeast like organism. Reported 11,000-25,000 colonies. UTI ruled out. Levaquin discontinued -Patient with frequency but no dysuria. UA shows normal WBC 0-5, squamous epithelium 0-5 cells, RBC 5-10 cells, LE 25 therefore benign. Has mild proteinuria. Hypotension and lactic acidosis probably due to decreased perfusion/bilateral lymphedema -Suspect related to dehydration as a cleared quickly. Patient blood pressure is also low. Nursing staff called me that blood pressure was 72 systolic. 1 L Ringer lactate ordered. Patient has low blood pressure during past hospitalization and antihypertensive and diuretics were held. Hold antihypertensive medication HCTZ and losartan CHRISTINA -Baseline serum creatinine prior to last hospitalization was between 0.8 and 1.0. Was admitted with creatinine 1.56. Continue IV fluid Ringer lactate after 1 L bolus -During that hospitalization she did improve and trended down to 0.84 but has trended back up today with a serum creatinine of 1.56 Digoxin toxicity -Dig levels elevated at 2.12 -Likely related to decreased clearance with fluctuating renal function due to dehydration -Hold digoxin for now -Repeat dig level in a.m. Chronic liver disease: . Patient baseline total bilirubin is around 2.0 but variable. Admitted with 2.1 most recent 1.3. Direct bilirubin ordered. Last seen in the GI office was April 2023. 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 02/05: Exact etiology of chronic liver disease is unclear patient was recommended liver biopsy during previous GI office visit with Dr. Redman. Suspected etiologies may be MASLD, chronic granulomatous disease/autoimmune disease. Last CT scan of September 2023 does not show cirrhotic nodular appearance of liver. Platelet count also normal. TB 2.1, improved to 1.4. ALT, AST and ALP low. A/G ratio 0.8. 02/06: Total Leandro 1.3, direct 0.14. Alkaline phosphatase 40 low. Obesity; Severe LE Lymphedema bilaterally and SARAHY; on CPAP: BMI noted 43.0 was 39.4 kg per square during previous hospitalization Severe Chronic Insomnia that has acutely worsened likely due to chronic opiate use disturbing sleep architecture - Give scheduled Temazepam 15 mg PO q HS and Melatonin 3 mg PO q HS to help patient both initiate sleep and maintain sleep respectively. OA; with chronic pain syndrome on ER Morphine TID likely primary factor causing #5 - Noted. Current regimen to continue as previous. Essential hypertension - Hold scheduled antihypertensives due to hypotension Hypothyroidism - Resume Synthroid at current dose. TSH 0.99 on low normal. Her TSH level has been fluctuant between 0.73- 3.14 last 9 months. History of Hyperparathyroidism - Noted. Pulmonary Hypertension; on Sildenafil TID - Maintain Sildenafil as previous. History of Crohn's with small bowel resection x 2; with subsequent short-gut syndrome and chronic IBS; of diarrheal-type - Stable. She had last CT scan in September 2023 which showed right hemicolectomy. Normal liver multiple gallstones. Normal spleen and dilated ducts of the pancreas. She was last seen by Dr. Redman in the GI office in April 2023 at that time MRI enterography was suggested. GERD - Continue PPI. Osteoporosis; with history of kyphoplasty - DVT prophylaxis - Patient already on Xarelto, continue continued. Charges/Coding Visit Charges Inpatient E&M: 08196 Subs Hosp L2
[2024-02-11] MEDS: Acetaminophen 500 MG Tablet 1000 MG PO ×3 (10:25→20:43)
[2024-02-11] MEDS: Cholecalciferol (VIT D3) 25 MCG TABLET (1,000 UNITS) PO (10:25)
[2024-02-11] MEDS: predniSONE 20 MG Tablet PO ×2 (10:25→20:44)
[2024-02-11] MEDS: Ammonium Lactate 225 gm Bottle 1 APPLIC TOPICAL (10:31)
[2024-02-11] MEDS: Diphenoxylate/Atrop 1 Tablet 5 TABLET PO (10:31)
--- NOTE | 2024-02-11 11:47 | CASEMGMT ---
Discharge Planning A list of SNF providers including quality and resource use data and consistent with the patient's preferred geographic region, medical needs, and insurance network was created in [employer] Guide.? This list was provided to the RN ZEFERINO. Isabelle Yang, Discharge Planning Asst.
--- NOTE | 2024-02-11 12:08 | STRESSREP ---
Stress Test Report Date: 02/11/2024 Procedure: Pharmacologic stress nuclear imaging study Indications: Dyspnea on exertion Consent: Per the patient Procedure: The patient underwent pharmacologic (Regadenoson 0.4mg ) evaluation with a peak heart rate of 110 beats per minute (73%predicted maximal heart rate) and a peak blood pressure of 138/70 mmHg. The baseline ECG demonstrated sinus rhythm. The peak pharmacologic ECG demonstrated no ischemic changes. There were no cardiac dysrhythmias pretest, during pharmacologic infusion, or recovery. There was no complaint of chest discomfort during pharmacologic infusion or recovery. The patient was injected with 14.8 millicuries of technetium 99m Cardiolite and subsequently rest SPECT Cardiolite nuclear imaging was obtained in the horizontal long, vertical long, and short axis views. The patient underwent pharmacologic (Regadenoson) evaluation. The patient was injected with 45.0 millicuries of technetium 99m Cardiolite and subsequently stress SPECT Cardiolite nuclear imaging was obtained in the horizontal long, vertical long, and short axis views. A gated Cardiolite study at peak stress was obtained. The examination was stopped secondary to completion of protocol. Rest and stress SPECT Cardiolite nuclear imaging status post realignment, normalization, and attenuation correction demonstrate no fixed or reversible perfusion defects. There is end systolic thickening and brightening. The gated Cardiolite study demonstrates myocardial thickening and inward wall motion. Possible left ventricular hypertrophy. The reported LVEF is 91%. Impression: 1. Pharmacologic (Regadenoson) evaluation 2. Peak pharmacologic ECG with no ischemic changes. 3. There were no cardiac dysrhythmias pretest, during pharmacologic infusion, or recovery. 5. Rest and stress SPECT Cardiolite nuclear imaging demonstrate relative uniform tracer uptake and myocardial perfusion appearing within normal limits. 6. The gated Cardiolite study reports an LVEF of 91%. Possible LVH. This note was generated with [employer] software. It may contain incorrect words, spelling, and punctuation that were not noted in checking the note before signing.
--- NOTE | 2024-02-11 12:20 | CASEMGMT ---
MOHSEN MCGARRY chart review: Patient was admitted 02/05-02/08/24 for dehydration, hypotension, and CHRISTINA. See MOHSEN MCGARRY documentation from 02/05 and 02/07. It was recommended that patient discharge with [facility] patient refused and returned to home with follow-up plans in place. Patient returned to [facility] ED On 02/10/24 as she was not able to care for herself at home. Patient was admitted for dyspnea on exertion and fatigue. MOHSEN MCGARRY it to discuss needs at discharge and readmission. Patient states she realizes she was not strong enough at home and maybe should have went to TCU last admission. Patient states she saw her PCP on 02/09/24. Patient states she wear home oxygen at 2-3lpm as needed at home. MOHSEN MCGARRY discussed the importance of completing therapy consistently so that patient can care for self at home. Patient voiced understanding. SNF list provided to patient and prefers TCU. Patient had no further questions or concerns. MOHSEN MCGARRY updated SW regarding request for SNF at discharge.
[2024-02-11] MEDS: levoFLOXacin IV 750 MG/150 ML BAG 100 MG IV (12:35)
--- NOTE | 2024-02-11 12:50 | CON.PCM.SX_ITS ---
Assessment & Plan Assessment/Plan (1) Hematoma of right lower leg: (2) Lymphedema of lower extremity: (3) Leg edema: PLAN: Plan Hematoma appears stable, skin integrity is intact. Recommend continued monitoring. No indication for surgical intervention at this time. With respect to her lower extremity edema, I recommend compression with SARAI wrap if tolerable, leg elevation. Appearance is consistent with lymphedema. May consider further evaluation for component of venous insufficiency which can be completed on an outpatient basis. She would benefit from new lymphedema pumps which we can also coordinate on an outpatient basis. She does already have an appointment in the office. HPI Consult Data Date of Consult: 02/12/24 HPI Narrative HPI Narrative: RAFIQ ALCANTAR, is a 68 F who was recently admitted from 02/05/2024 to 02/08/2024 for CHRISTINA and hypotension and was readmitted on 02/10/2024 for generalized weakness and inability to care for herself at home. We are consulted secondary to her significant bilateral lower extremity edema and right calf hematoma/bruising. She does have significant bruising and a moderate hematoma on her right lateral distal calf. She reports she is not sure when or how this started. She does not recall any specific injury. She is chronically anticoagulated with Xarelto for her history of A-fib. She reports her bilateral lower extremity edema has been ongoing since 2019. She reports that she was diagnosed with lymphedema previously. She does have lymphedema pumps at home but reports she had a more acute increase in her edema back in September and her pumps no longer fit properly so she has not really been able to use them. She does not wear compression garments otherwise. She reports her legs are very sensitive/tender to touch. Medical history is otherwise significant for pulmonary hypertension, SARAHY, cirrhosis, IgG deficiency, degenerative disc disease, hypertension. [facility] Medical History Kidney disease GI bleed DVT (deep venous thrombosis) Atrial fibrillation Chest pain On home oxygen therapy Hyperbilirubinemia Lymphedema Shakiness Fatigue Mild cognitive impairment Secondary hyperparathyroidism Secondary adrenal insufficiency Cellulitis of leg Hyponatremia Hyperparathyroidism Sacroiliitis Weight loss Unintentional weight loss Screening for colon cancer Left ureteral calculus Paroxysmal atrial fibrillation Essential hypertension Skin lesion Thrombocytosis Chronic pain Former smoker CPAP (continuous positive airway pressure) dependence Sleep apnea A-fib New onset a-fib History of echocardiogram Chronic bronchitis History of blood transfusion Pulmonary HTN Bone fracture Vitamin deficiency Skin cancer PNE Back problem Osteoporosis Osteopenia OA (osteoarthritis) Arthritis Gastrointestinal distress Gallstones COPD (chronic obstructive pulmonary disease) Anemia Seasonal allergies Pancreatic divisum Fibromyalgia Immunodeficiency disorder, selective immunoglobulin Asthma Crohns disease HTN (hypertension) GERD (gastroesophageal reflux disease) SARAHY (obstructive sleep apnea) Hypertension Home Medications ?Medication ?Instructions ?Recorded ?Last Taken ?Type pantoprazole 40 mg tablet,delayed 40 mg PO DAILY PRN Acid Reflux 05/29/20 10/18/23 History release diphenoxylate-atropine 2.5 5 tab PO DAILY Diarrhea/Loose 09/06/20 10/18/23 History mg-0.025 mg tablet Stools levothyroxine 50 mcg tablet 50 mcg PO DAILY thyroid 12/09/21 10/18/23 History ammonium lactate 12 % topical cream 1 applic topical BID dry legs 05/12/22 10/18/23 History sildenafil (pulm.hypertension) 20 20 mg PO TID Pulmonary HTN 05/12/22 Unknown History mg tablet budesonide-formoterol HFA 160 2 puff inhalation BID PRN SOB 09/24/22 10/18/23 History mcg-4.5 mcg/actuation aerosol inhaler (Symbicort) lidocaine 5 % topical patch 1 patch topical DAILY PRN pain 09/24/22 10/18/23 History Prolia 60 mg/mL subcutaneous 60 mg subcut [id number] #1 mL 12/22/22 Unknown Rx syringe (denosumab) rivaroxaban 20 mg tablet (Xarelto) 20 mg PO DAILY Please change 06/09/23 Unknown Rx quantity to 30 days #30 tabs digoxin 125 mcg (0.125 mg) tablet 125 mcg PO DAILY heart #90 tabs 08/24/23 10/18/23 Rx morphine 15 mg tablet,extended 15 mg PO TID PAIN 10/09/23 10/18/23 History release IVIG INFUSION 20 g IV .[id number] immunosuppression 10/18/23 12/07/23 History loratadine 10 mg tablet (Allergy 10 mg PO DAILY PRN allergy symptoms 10/18/23 Unknown History Relief (loratadine)) montelukast 10 mg tablet 10 mg PO DAILY PRN pain 10/18/23 10/18/23 History amiodarone 200 mg tablet 100 mg PO Q24H ARRHYTHMIA 02/05/24 Unknown History baclofen 10 mg tablet 10 mg PO QHS 02/05/24 Unknown History cholecalciferol (vitamin D3) 25 25 mcg PO DAILY 02/05/24 Unknown History mcg (1,000 unit) capsule (Vitamin D3) prednisone 20 mg tablet 20 mg PO BID 02/05/24 Unknown History Allergy/AdvReac Type Severity Reaction Status Date / Time codeine Allergy Severe ANGIOEDEMA/LEG Verified 02/05/24 17:41 SWELLING Penicillins Allergy Severe ANGIOEDEMA/LEG Verified 02/05/24 17:41 SWELLING Sulfa (Sulfonamide Allergy Severe ANGIOEDEMA/LEG Verified 02/05/24 17:41 Antibiotics) SWELLING sulfasalazine (From Allergy Severe ANGIOEDEMA/LEG Verified 02/05/24 17:41 Azulfidine) SWELLING Family History Father Anemia Heart disease Hypertension CVA (cerebral vascular accident) Mother Arthritis Cancer Osteoporosis Sister Arthritis Lung disease Surgical History History of cholecystectomy History of appendectomy History of kyphoplasty (~07/07/16) Leg fracture, right History of left knee replacement History of tonsillectomy History of total hysterectomy with bilateral salpingo-oophorectomy (BSO) History of pneumonectomy History of resection of small bowel History of right heart catheterization (RHC) (~05/09/16) Social History Smoking Status: Former smoker how long ago did patient quit smokin second hand exposure: No alcohol intake: current alcohol intake frequency: other substance use type: does not use caffeine: Yes Type: carbonated beverages, coffee and tea what type of physical activity do you participate in: none seatbelt use: always 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 Physical Exam Const alert and oriented x3 General Appearance: cooperative HEENT normocephalic, head/scalp atraumatic, hearing grossly normal bilaterally, external ears normal and external nose normal Eyes Eyes Narrative: Right eye twitch, reportedly chronic otherwise normal to inspection Neck General: normal visual inspection and trachea midline Resp normal respiratory effort, no retractions and no use of accessory muscles Effort and Inspection: able to speak in complete sentences Cardio regular rate and regular rhythm Extremity Extremity Narrative: Significant 4+ bilateral lower extremity edema. She has weeping from both lower legs. There is ecchymosis with a focal hematoma to the right lateral calf. Generally soft to palpation. Skin integrity is intact in the area of the hematoma. Lower extremity circumference measures as follows: Right ankle 36 cm, right calf 63 cm, left ankle 38 cm, left calf 64 cm Skin no rashes or lesions noted General Skin Exam: ecchymosis and other Weeping Neuro oriented x3, CN's II-XII intact bilaterally, moves all extremities and no focal motor deficits Psych mental status grossly normal Appearance: grossly normal Attitude: calm and engaged Activity / Motor Behavior: appropriate eye contact Speech: normal speech Mood & Affect: euthymic mood Judgement: judgement good Lab / Micro Data 02/12/24 10:50 02/12/24 10:50 Labs: Laboratory Results - last 24 hr 02/10/24 12:19: Sodium 140, Potassium 4.5, Chloride 103, Carbon Dioxide 26.0, Anion Gap 11, BUN 42 H, Creatinine 1.56 H, Estim Creat Clear Calc 42.77, Est GFR (MDRD) Af Amer 42 L, Est GFR (MDRD) Non-Af 35 L, BUN/Creatinine Ratio 26.9 H, G lucose 140 H, Lactic Acid 2.2 H*, Calcium 9.0, Total Bilirubin 1.60 H, AST 9 L, ALT 16, Alkaline Phosphatase 48, Troponin I High Sens 27, Total Protein 6.1 L, A lbumin 2.8 L, Globulin 3.3, Albumin/Globulin Ratio 0.8 L 02/10/24 12:58: Urine Color Yellow, Urine Clarity Cloudy, Urine pH 5.0, Ur Specific [place] 1.025, Urine Protein 30 H, Urine Glucose (UA) Normal, Urine Ketones 5 H, Urine Occult Blood 50 H, Urine Nitrite Negative, Urine Bilirubin 1 H, Urine Urobilinogen 1 H, Ur Leukocyte Esterase 25 H, Urine RBC 5-10 SEEN, Urine WBC 0-5 SEEN, Ur Squamous Epith Cells 0-5 SEEN, Calcium Oxalate Crystal 1+, Amorphous Sediment 2+, Urine Bacteria 3+, Hyaline Casts 10-25 SEEN, Coarse Granular Casts 0-5 SEEN, Urine Mucus 1+ 02/10/24 14:39: B-Natriuretic Peptide 54.9 02/10/24 15:14: TSH 0.889, Digoxin 2.12 H* 02/10/24 16:42: Lactic Acid 1.3 02/10/24 20:22: Troponin I High Sens 24 02/10/24 21:58: Troponin I High Sens 23 02/11/24 02:44: WBC 15.4 H, RBC 3.56 L, Hgb 10.8 L, Hct 35.3 L, MCV 99.2 H, MCH 30.3, MCHC 30.6 L, RDW Std Deviation 54.6 H, RDW Coeff of Curtis 15.0 H, Plt Count 280, MPV 9.1, Immature Gran % (Auto) 2.700 H, Neut % (Auto) 89.7 H, Lymph % (Auto) 2.9 L, [place] % (Auto) 4.5, Eos % (Auto) 0.0, Baso % (Auto) 0.2, Absolute Neuts (auto) 13.8 H, Absolute Lymphs (auto) 0.45 L, Nucleated RBC % 0, Sodium 138, Potassium 5.1, Chloride 104, Carbon Dioxide 32.0, Anion Gap 2 L, BUN 44 H, Creatinine 1.27 H, Estim Creat Clear Calc 52.76, Est GFR (MDRD) Af Amer 54 L, E st GFR (MDRD) Non-Af 44 L, BUN/Creatinine Ratio 34.6 H, Glucose 124 H, Calcium 8.5, Phosphorus 3.3, Magnesium 2.2, Total Bilirubin 1.40 H, AST 11 L, ALT 14, A lkaline Phosphatase 35 L, Troponin I High Sens 25, Total Protein 4.4 L, Albumin 2.2 L, Globulin 2.2, Albumin/Globulin Ratio 1.0 Imaging Radiology Impression Chest X-Ray 02/10/24 12:40 IMPRESSION: No acute abnormality is seen. Stable examination. Electronically Signed: Raul Padilla MD at 13:35 EDT , Chest CT 02/10/24 15:15 IMPRESSION: ASHD without evidence for aortic aneurysm. Postsurgical changes in left upper lobe Mild chronic interstitial changes and scattered subcentimeter nodules not changed appreciably since prior study No focal consolidation Electronically Signed: Bang Roach MD at 16:11 EDT , Charges/Coding Visit Charges Inpatient E&M: 49328 Init Hosp L2
[2024-02-11] MEDS: Menthol/Lanolin/Calamine/Znox 113 GM Tube 1 APPLIC TOPICAL (13:11)
[2024-02-11] MEDS: morphine SR 15 MG Tablet PO ×2 (13:11→20:42)
[2024-02-11] MEDS: SILDENAFIL CITRATE 20 MG TABLET PO ×2 (13:11→20:43)
--- NOTE | 2024-02-11 13:45 | CASEMGMT ---
Per RN CM patient would like to go to [facility] TCU. SW made a referral to Jen. Lexus NAJERA
[2024-02-11] MEDS: Albuterol 2.5 MG/3 ML VIAL.NEB. INHALATION (14:20)
[2024-02-11] MEDS: Budesonide Respules 0.5 MG/2 ML AMPUL.NEB. INHALATION (14:21)
--- NOTE | 2024-02-11 14:46 | CASEMGMT ---
Should patient go to TCU she would not be able to get her IVIG or Prolia injections. EDDIE spoke with patient and let her know this information. Patient is in agreement with this as she only wants TCU and needs the therapy. EDDIE called Dr Hawkins's office (where patient gets her IVIG) and spoke with Juanita. EDDIE let Juanita know that patient will be going to [facility] TCU and while she is there she will not be able to get her injections. Juanita will pass this information along to the physicians. Plan: [facility] TCU under skilled level of care when medically ready. Lexus Urias DIRECTOR DESIGN DANIA
[2024-02-11] MEDS: Lactated Ringers 1,000 ML 500 ML IV (15:58)
[2024-02-11] MEDS: Rivaroxaban 20 MG Tablet PO (18:05)
[2024-02-11] MEDS: MELATONIN 3 MG TABLET PO (20:42)
[2024-02-12] MEDS: Ondansetron 4 MG/2 ML Vial IV ×2 (02:32→12:50)
[2024-02-12 04:30] VITALS: BP 107/88; PULSE 88; RESP 16; TEMP 36.6; O2SAT 97
[2024-02-12] MEDS: Acetaminophen 500 MG Tablet 1000 MG PO ×2 (05:59→16:14)
[2024-02-12] MEDS: morphine SR 15 MG Tablet PO ×3 (05:59→21:54)
[2024-02-12] MEDS: Levothyroxine 50 MCG Tablet PO (06:00)
[2024-02-12] MEDS: SILDENAFIL CITRATE 20 MG TABLET PO ×3 (06:00→20:42)
[2024-02-12] MEDS: Menthol/Lanolin/Calamine/Znox 113 GM Tube 1 APPLIC TOPICAL ×2 (06:05→20:41)
[2024-02-12 06:55] VITALS: O2SAT 93
[2024-02-12 08:24] VITALS: BP 100/53; PULSE 75; RESP 15; TEMP 36.7; O2SAT 95
[2024-02-12] MEDS: Amiodarone 200 MG Tablet 100 MG PO (08:28)
[2024-02-12] MEDS: Cholecalciferol (VIT D3) 25 MCG TABLET (1,000 UNITS) PO (08:29)
[2024-02-12] MEDS: predniSONE 20 MG Tablet PO ×2 (08:29→20:40)
[2024-02-12] MEDS: Diphenoxylate/Atrop 1 Tablet 5 TABLET PO (08:31)
[2024-02-12] MEDS: Ammonium Lactate 225 gm Bottle 1 APPLIC TOPICAL ×2 (08:34→20:41)
[2024-02-12 10:58] LABS: Absolute Lymphocyte Count 0.66 X10^3/uL (0.83-4.51); Basophil# 0.03 X10^3/uL; Basophil% 0.2 % (0-1); Eosinophil# 0.01 X10^3/uL; Eosinophils% 0.1 % (0-5); Hematocrit 27.9 % (37-47); Hemoglobin 8.6 g/dL (12.0-15.0); Lymphocyte # 0.66 X10^3/ul (0.83-4.51); Lymphocyte % 4.5 % (19-41); Mean Corp Hgb Conc 30.8 g/dL (32-36); Mean Corpuscular Hgb 30.4 pg (27.0-32.0); Mean Corpuscular Volume 98.6 fL (81-99); Mean Platelet Vol. 8.9 fl (6.2-12.0); Monocyte# 0.81 X10^3/uL; Monocyte% 5.5 % (0-10); NRBC Flagged by Analyzer 0 % (0-5); Neutrophil # 12.95 X10^3/uL (2.7-7.7); Neutrophil % 87.7 % (47-70); Platelet Count 243 K/mm3 (150-450); RBC Distribution Width CV 15.1 % (11.6-14.6); Red Blood Count 2.83 M/mm3 (4.2-5.4); White Blood Count 14.8 K/mm3 (4.4-11.0)
[2024-02-12] MEDS: Pantoprazole Sodium 40 MG Tablet PO (11:02)
[2024-02-12 11:33] LABS: Anion Gap 2 (5-15); BUN 44 mg/dL (7-18); BUN/Creat Ratio 32.8 RATIO (10-20); Calcium,Total 8.1 mg/dL (8.5-10.1); Chloride 104 mmol/L (98-107); Creatinine, Serum 1.34 mg/dL (0.55-1.02); EST Glomerular Filtration Rate 42 mL/min (>60); Est Glom Filt Rate - Afr Amer 50 mL/min (>60); Glucose 169 mg/dL (74-106); Potassium 4.8 mmol/L (3.5-5.1); Sodium Level 137 mmol/L (136-145)
[2024-02-12 13:56] LABS: Digoxin Level 1.59 ng/mL (0.80-2.00)
[2024-02-12 14:35] VITALS: BP 87/43; PULSE 97; RESP 16; TEMP 36.7; O2SAT 95
--- NOTE | 2024-02-12 15:14 | PCM.PN.HOSP ---
Reason for Visit Reason for Visit: Diagnoses Elevated white blood cell count, unspecified (02/10/24) Acute metabolic acidosis (02/10/24) Muscle weakness (generalized) (02/10/24) Acute kidney failure, unspecified (02/10/24) Other forms of dyspnea (02/10/24) Other fatigue (02/10/24) Finding of other specified substances, not normally found in blood (02/10/24) Unspecified abnormal findings in urine (02/10/24) Contusion of right lower leg, initial encounter (02/10/24) Objective Data Objective Data Vital Signs: Vital Signs Temp Pulse Resp BP Pulse Ox O2 Del Method O2 Flow Rate 98.1 F 75 15 100/53 L 95 Room Air 2 02/12/24 08:24 02/12/24 08:24 02/12/24 08:24 02/12/24 08:24 02/12/24 08:24 02/12/24 13:52 02/12/24 03:07 Oxygen Flow Rate (L/min) 2 Oxygen Delivery Method Room Air Weight: 258 lb 6.39 oz Body Mass Index (BMI) 43.0 Intake & Output: Intake and Output for Last 24 Hours 02/10/24 02/11/24 02/12/24 23:59 23:59 23:59 Intake Total 390 / 390 3523.34 / 3523.34 480 / 480 Output Total 500 / 500 Balance 390 / 390 3523.34 / 3523.34 -20 / -20 Lab / Micro Data 02/12/24 10:50 02/12/24 10:50 Labs: Laboratory Results - last 24 hr 02/12/24 10:50: WBC 14.8 H, RBC 2.83 L, Hgb 8.6 L, Hct 27.9 L, MCV 98.6, MCH 30.4, MCHC 30.8 L, RDW Std Deviation 55.0 H, RDW Coeff of Curtis 15.1 H, Plt Count 243, MPV 8.9, Immature Gran % (Auto) 2.000 H, Neut % (Auto) 87.7 H, Lymph % (Auto) 4.5 L, [place] % (Auto) 5.5, Eos % (Auto) 0.1, Baso % (Auto) 0.2, Absolute Neuts (auto) 13.0 H, Absolute Lymphs (auto) 0.66 L, Nucleated RBC % 0, Sodium 137, Potassium 4.8, Chloride 104, Carbon Dioxide 31.0, Anion Gap 2 L, BUN 44 H, Creatinine 1.34 H, Estim Creat Clear Calc 50.00, Est GFR (MDRD) Af Amer 50 L, Est GFR (MDRD) Non-Af 42 L, BUN/Creatinine Ratio 32.8 H, Glucose 169 H, Calcium 8.1 L, Digoxin 1.59 Micro: Microbiology 02/10/24 12:58 Urine, Clean Catch Urine Culture - Final Yeast, not Aziza albicans Physical Exam Narrative Seen and examined. Patient is tired she said she could not sleep last night. Labile blood pressure, 99/54, 100/53. Antihypertensive medications on hold. Generalized weakness. Patient was admitted for not able to take care of herself, generalized weakness. She was felt too weak to get out of the chair. She could not even go to the bathroom. Impaired ADL Physical exam General: Alert, Oriented x3, Cooperative HEENT: Atraumatic, PERRLA, EOMI, Normocephalic Oral: No Gingival or Mucosal Lesions/ Ulcerations Neck: Supple, No JVD, Negative Carotid Bruits Chest wall/Lungs: Air entry diminished in bilateral lungs. Lungs clear. No crepitations or rhonchi. Cardiovascular: Regular rate, Regular Rhythm, Normal S1, Normal S2, No M/G/R Abdomen: Bowel Sounds Present, Soft, Non Tender, Non-Distended. Multiple surgical scars. : No dysuria. No renal angle tenderness. No suprapubic tenderness. Extremities: Chronic bilateral lymphedema uses lymphedema pump, chronic fibrosis and thickening of subcutaneous tissue of lower legs. Skin: No rashes, No breakdown Musculoskeletal: No Tenderness to Palpation of Joints or Extremities Neurological: Cranial nerves II-XII grossly intact, DTR 2+/4. No acute focal neurological deficit. Psych/Mental Status: Flat affect Assessment & Plan Assessment/Plan (1) Elevated digoxin level: (2) Dyspnea on exertion: (3) CHRISTINA (acute kidney injury): (4) Hematoma of right lower leg: PLAN: Plan 68-year-old female was admitted for generalized weakness, unable to care for herself. She was just discharged home on 02/07. She could not get out of the chair. 1. Dyspnea on exertion on fatigue most likely due to her physical/body habitus of bilateral lower extremity lymphedema. Patient is admitted in PCU. Serial troponins negative. Pharmacological nuclear stress test does not show ischemic changes and reported perfusion appearing within normal limit. 2D echo shows mild concentric LVH, hyperdynamic LV with EF 75%, stage II diastolic dysfunction. LA severely enlarged. RVSP 64 mmHg. Serum magnesium and phosphorus level normal. Lactic acid normal. Digoxin was elevated. -CT of the chest is unremarkable for any acute findings that would cause dyspnea -If cardiac workup is unremarkable will need follow-up with pulmonary to have outpatient PFTs 02/11: Patient feels tired could not sleep last night. Blood pressure on lower side but she is not dizzy or lightheaded. Has labile hypertension probably due to lymphedema. She is on baclofen at night for sleep. Abnormal UA, UTI ruled out.. Previous urine culture from shows yeast like organism. Reported 11,000-25,000 colonies. UTI ruled out. Levaquin discontinued -Patient with frequency but no dysuria. UA shows normal WBC 0-5, squamous epithelium 0-5 cells, RBC 5-10 cells, LE 25 therefore benign. Has mild proteinuria. Hypotension and lactic acidosis probably due to decreased perfusion/bilateral lymphedema -Suspect related to dehydration as a cleared quickly. Patient blood pressure is also low. Nursing staff called me that blood pressure was 72 systolic. 1 L Ringer lactate ordered. Patient has low blood pressure during past hospitalization and antihypertensive and diuretics were held. The antihypertensive medication HCTZ and losartan were discontinued CHRISTINA -Baseline serum creatinine prior to last hospitalization was between 0.8 and 1.0. Was admitted with creatinine 1.56. Continue IV fluid Ringer lactate after 1 L bolus -During that hospitalization she did improve and trended down to 0.84 but has trended back up today with a serum creatinine of 1.56 Digoxin toxicity -Dig levels elevated at 2.12 -Likely related to decreased clearance with fluctuating renal function due to dehydration -Hold digoxin for now -Repeat dig level in a.m. Chronic liver disease: . Patient baseline total bilirubin is around 2.0 but variable. Admitted with 2.1 most recent 1.3. Direct bilirubin ordered. Last seen in the GI office was April 2023. 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 02/05: Exact etiology of chronic liver disease is unclear patient was recommended liver biopsy during previous GI office visit with Dr. Redman. Suspected etiologies may be MASLD, chronic granulomatous disease/autoimmune disease. Last CT scan of September 2023 does not show cirrhotic nodular appearance of liver. Platelet count also normal. TB 2.1, improved to 1.4. ALT, AST and ALP low. A/G ratio 0.8. 02/06: Total Leandro 1.3, direct 0.14. Alkaline phosphatase 40 low. Obesity; Severe LE Lymphedema bilaterally and SARAHY; on CPAP: BMI noted 43.0 was 39.4 kg per square during previous hospitalization Severe Chronic Insomnia that has acutely worsened likely due to chronic opiate use disturbing sleep architecture - Give scheduled Temazepam 15 mg PO q HS and Melatonin 3 mg PO q HS to help patient both initiate sleep and maintain sleep respectively. OA; with chronic pain syndrome on ER Morphine TID likely primary factor causing #5 - Noted. Current regimen to continue as previous. Essential hypertension - Hold scheduled antihypertensives due to hypotension Hypothyroidism - Resume Synthroid at current dose. TSH 0.99 on low normal. Her TSH level has been fluctuant between 0.73- 3.14 last 9 months. History of Hyperparathyroidism - Noted. Pulmonary Hypertension; on Sildenafil TID - Maintain Sildenafil as previous. History of Crohn's with small bowel resection x 2; with subsequent short-gut syndrome and chronic IBS; of diarrheal-type - Stable. She had last CT scan in September 2023 which showed right hemicolectomy. Normal liver multiple gallstones. Normal spleen and dilated ducts of the pancreas. She was last seen by Dr. Redman in the GI office in April 2023 at that time MRI enterography was suggested. GERD - Continue PPI. Osteoporosis; with history of kyphoplasty - DVT prophylaxis - Patient already on Xarelto, continue continued. Charges/Coding Visit Charges Inpatient E&M: 36891 Subs Hosp L2
[2024-02-12 16:00] VITALS: PULSE 70
[2024-02-12] MEDS: Rivaroxaban 20 MG Tablet PO (16:14)
[2024-02-12 20:20] VITALS: BP 106/64; PULSE 108; RESP 18; TEMP 37.1; O2SAT 96
[2024-02-12] MEDS: Baclofen 10 MG Tablet PO (20:40)
[2024-02-12] MEDS: MELATONIN 10 MG TABLET PO (20:40)
[2024-02-12] MEDS: 0.9% Saline Lock 10 ML Syringe IV (20:43)
[2024-02-13 03:20] VITALS: BP 113/61; PULSE 91; RESP 18; TEMP 36.7; O2SAT 96
[2024-02-13 05:50] LABS: Absolute Lymphocyte Count 0.53 X10^3/uL (0.83-4.51); Absolute Neutrophil Count 14.7 X10^3/uL (2.0-7.7); Basophil# 0.02 X10^3/uL; Basophil% 0.1 % (0-1); Hematocrit 29.6 % (37-47); Hemoglobin 9.2 g/dL (12.0-15.0); Lymphocyte # 0.53 X10^3/ul (0.83-4.51); Lymphocyte % 3.2 % (19-41); Mean Corp Hgb Conc 31.1 g/dL (32-36); Mean Corpuscular Hgb 31.1 pg (27.0-32.0); Mean Platelet Vol. 9.1 fl (6.2-12.0); Monocyte# 0.76 X10^3/uL; Monocyte% 4.6 % (0-10); NRBC Flagged by Analyzer 0 % (0-5); Neutrophil # 14.65 X10^3/uL (2.7-7.7); Neutrophil % 89.1 % (47-70); POSITIVE DIFFERENTIAL YES; Platelet Count 287 K/mm3 (150-450); RBC Distribution Width CV 14.8 % (11.6-14.6); RBC Distribution Width SD 55.3 fl (35.1-43.9); Red Blood Count 2.96 M/mm3 (4.2-5.4); White Blood Count 16.5 K/mm3 (4.4-11.0)
[2024-02-13] MEDS: morphine SR 15 MG Tablet PO ×3 (05:51→20:58)
[2024-02-13] MEDS: Acetaminophen 500 MG Tablet 1000 MG PO ×3 (05:52→20:59)
[2024-02-13] MEDS: Levothyroxine 50 MCG Tablet PO (05:52)
[2024-02-13] MEDS: SILDENAFIL CITRATE 20 MG TABLET PO ×3 (05:52→20:58)
[2024-02-13] MEDS: Diphenoxylate/Atrop 1 Tablet 5 TABLET PO (06:01)
--- NOTE | 2024-02-13 06:05 | NURSING ---
Clarified order for Lomotil with pharmacy.
[2024-02-13] MEDS: Menthol/Lanolin/Calamine/Znox 113 GM Tube 1 APPLIC TOPICAL ×2 (06:45→13:53)
[2024-02-13 07:26] LABS: Anion Gap 2 (5-15); BUN 42 mg/dL (7-18); BUN/Creat Ratio 35.6 RATIO (10-20); Calcium,Total 8.5 mg/dL (8.5-10.1); Chloride 104 mmol/L (98-107); Creatinine, Serum 1.18 mg/dL (0.55-1.02); EST Glomerular Filtration Rate 48 mL/min (>60); Est Glom Filt Rate - Afr Amer 58 mL/min (>60); Estimated Creatinine Clearance 56.78 ml/min; Glucose 124 mg/dL (74-106); Potassium 5.5 mmol/L (3.5-5.1); Sodium Level 138 mmol/L (136-145)
[2024-02-13 08:05] VITALS: BP 82/44; PULSE 92; RESP 16; TEMP 36.8; O2SAT 93
[2024-02-13] MEDS: Pantoprazole Sodium 40 MG Tablet PO (09:44)
[2024-02-13] MEDS: predniSONE 20 MG Tablet PO ×2 (09:44→21:00)
[2024-02-13] MEDS: Amiodarone 200 MG Tablet 100 MG PO (09:45)
[2024-02-13] MEDS: Ammonium Lactate 225 gm Bottle 1 APPLIC TOPICAL (09:45)
[2024-02-13] MEDS: Cholecalciferol (VIT D3) 25 MCG TABLET (1,000 UNITS) PO (09:46)
[2024-02-13] MEDS: Ondansetron 4 MG/2 ML Vial IV (09:57)
[2024-02-13] MEDS: 0.9% Saline Lock 10 ML Syringe IV (09:57)
[2024-02-13 10:05] VITALS: BP 110/48; PULSE 94; RESP 18; TEMP 36.7; O2SAT 94
--- NOTE | 2024-02-13 12:24 | PCM.PN.HOSP ---
Subjective Subjective Doing well, no issues overnight Objective Data Objective Data Vital Signs: Vital Signs Temp Pulse Resp BP Pulse Ox O2 Del Method O2 Flow Rate 98.0 F 94 18 110/48 L 94 Room Air 3 02/13/24 10:05 02/13/24 10:05 02/13/24 10:05 02/13/24 10:05 02/13/24 10:05 02/13/24 10:05 02/12/24 20:45 Oxygen Flow Rate (L/min) 3 Oxygen Delivery Method Room Air Weight: 258 lb 6.39 oz Body Mass Index (BMI) 43.0 Intake & Output: Intake and Output for Last 24 Hours 02/12/24 02/13/24 02/14/24 03:59 03:59 03:59 Intake Total 3523.34 / 3523.34 1140 / 1140 798.75 / 798.75 Output Total 500 / 500 300 / 300 Balance 3523.34 / 3523.34 640 / 640 498.75 / 498.75 Lab / Micro Data 02/13/24 05:35 02/13/24 05:35 Labs: Laboratory Results - last 24 hr 02/12/24 10:50: Digoxin 1.59 02/13/24 05:35: WBC 16.5 H, RBC 2.96 L, Hgb 9.2 L, Hct 29.6 L, MCV 100.0 H, MCH 31.1, MCHC 31.1 L, RDW Std Deviation 55.3 H, RDW Coeff of Curtis 14.8 H, Plt Count 287, MPV 9.1, Immature Gran % (Auto) 3.000 H, Neut % (Auto) 89.1 H, Lymph % (Auto) 3.2 L, [place] % (Auto) 4.6, Eos % (Auto) 0.0, Baso % (Auto) 0.1, Absolute Neuts (auto) 14.7 H, Absolute Lymphs (auto) 0.53 L, Nucleated RBC % 0, Sodium 138, Potassium 5.5 H, Chloride 104, Carbon Dioxide 32.0, Anion Gap 2 L, BUN 42 H, Creatinine 1.18 H, Estim Creat Clear Calc 56.78, Est GFR (MDRD) Af Amer 58 L, Est GFR (MDRD) Non-Af 48 L, BUN/Creatinine Ratio 35.6 H, Glucose 124 H, Calcium 8.5 Micro: Microbiology 02/10/24 12:58 Urine, Clean Catch Urine Culture - Final Yeast, not Aziza albicans Physical Exam Narrative General: Alert, Oriented x3, Cooperative, No apparent distress HEENT: Atraumatic, PERRLA, EOMI, Normocephalic Oral: Moist Mucosa Neck: Supple, No JVD Lungs: Diminished, Normal air movement, No rhonchi, No wheeze, No rales Cardiovascular: Regular rate, Regular Rhythm, Normal S1, Normal S2, No murmurs Abdomen: Soft, Non Tender, Non-Distended, No Hepato-splenomegaly Extremities: Edema, Capillary Refill Less than 3 Seconds Skin: No rashes, No breakdown Musculoskeletal: No Tenderness to Palpation of Joints or Extremities Neurological: No focal neurological deficits, Motor Exam 5/5 strength throughout, Sensory exam intact to light touch and pain Psych/Mental Status: Normal Affect, Appropriate Assessment & Plan Assessment/Plan (1) Elevated digoxin level: (2) Dyspnea on exertion: (3) CHRISTINA (acute kidney injury): (4) Hematoma of right lower leg: PLAN: Plan 1. Dyspnea on exertion on fatigue most likely due to her physical/body habitus of bilateral lower extremity lymphedema. Patient is admitted in PCU. Serial troponins negative. Pharmacological nuclear stress test does not show ischemic changes and reported perfusion appearing within normal limit. 2D echo shows mild concentric LVH, hyperdynamic LV with EF 75%, stage II diastolic dysfunction. LA severely enlarged. RVSP 64 mmHg. Serum magnesium and phosphorus level normal. Lactic acid normal. Digoxin was elevated. -CT of the chest is unremarkable for any acute findings that would cause dyspnea -If cardiac workup is unremarkable will need follow-up with pulmonary to have outpatient PFTs 02/11: Patient feels tired could not sleep last night. Blood pressure on lower side but she is not dizzy or lightheaded. Has labile hypertension probably due to lymphedema. She is on baclofen at night for sleep. 02/13/2024: PT/OT, awaiting pre-CERT, CHRISTINA is now resolved 2. Essential HTN/HLD/paroxysmal of A-fib/pulmonary hypertension ? Continue with Xarelto, will hold digoxin secondary to toxicity with an elevated level at 2.12 ? Continue with amiodarone ? Will hold her HCTZ and losartan, there is some difficulty in ascertaining an appropriate blood pressure secondary to edema ? Once renal function improves back to baseline would likely benefit from Lasix given her RVSP of 64 mmHg her echo during this admission 3. Hypothyroidism ? Stable ? Continue with Synthroid 4. Chronic liver disease: . Patient baseline total bilirubin is around 2.0 but variable. Admitted with 2.1 most recent 1.3. Direct bilirubin ordered. Last seen in the GI office was April 2023. 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 02/05: Exact etiology of chronic liver disease is unclear patient was recommended liver biopsy during previous GI office visit with Dr. Redman. Suspected etiologies may be MASLD, chronic granulomatous disease/autoimmune disease. Last CT scan of September 2023 does not show cirrhotic nodular appearance of liver. Platelet count also normal. TB 2.1, improved to 1.4. ALT, AST and ALP low. A/G ratio 0.8. 02/06: Total Leandro 1.3, direct 0.14. Alkaline phosphatase 40 low. 5. History of Crohn's with small bowel resection x 2; with subsequent short-gut syndrome and chronic IBS; of diarrheal-type - Stable. She had last CT scan in September 2023 which showed right hemicolectomy. Normal liver multiple gallstones. Normal spleen and dilated ducts of the pancreas. She was last seen by Dr. Redman in the GI office in April 2023 at that time MRI enterography was suggested. 6. GERD ? Stable ? Continue PPI. DVT: Xarelto Charges/Coding Visit Charges Inpatient E&M: 87471 Subs Hosp L2
--- NOTE | 2024-02-13 13:00 | NURSING ---
This RN taking over care at this time
[2024-02-13 16:00] VITALS: BP 94/56; PULSE 100; RESP 18; TEMP 36.8; O2SAT 94
[2024-02-13] MEDS: Rivaroxaban 20 MG Tablet PO (16:06)
[2024-02-13] MEDS: Baclofen 10 MG Tablet PO (20:58)
[2024-02-13 21:00] VITALS: BP 120/50; PULSE 98; RESP 18; TEMP 37.2; O2SAT 94
[2024-02-14 04:10] VITALS: BP 112/72; PULSE 97; RESP 18; TEMP 36.1; O2SAT 94
[2024-02-14] MEDS: Acetaminophen 500 MG Tablet 1000 MG PO (05:48)
[2024-02-14] MEDS: SILDENAFIL CITRATE 20 MG TABLET PO (05:48)
[2024-02-14] MEDS: Levothyroxine 50 MCG Tablet PO (05:48)
[2024-02-14] MEDS: Diphenoxylate/Atrop 1 Tablet 5 TABLET PO (05:48)
[2024-02-14 09:47] LABS: Anion Gap 1 (5-15); BUN 45 mg/dL (7-18); BUN/Creat Ratio 36.6 RATIO (10-20); Calcium,Total 8.8 mg/dL (8.5-10.1); Chloride 103 mmol/L (98-107); Creatinine, Serum 1.23 mg/dL (0.55-1.02); EST Glomerular Filtration Rate 46 mL/min (>60); Est Glom Filt Rate - Afr Amer 56 mL/min (>60); Estimated Creatinine Clearance 54.48 ml/min; Glucose 107 mg/dL (74-106); Potassium 5.6 mmol/L (3.5-5.1); Sodium Level 137 mmol/L (136-145)
[2024-02-14 10:21] VITALS: BP 116/55; PULSE 98; RESP 18; TEMP 37.3; O2SAT 94
[2024-02-14] MEDS: Pantoprazole Sodium 40 MG Tablet PO (10:24)
[2024-02-14] MEDS: Cholecalciferol (VIT D3) 25 MCG TABLET (1,000 UNITS) PO (10:24)
[2024-02-14] MEDS: predniSONE 20 MG Tablet PO (10:25)
[2024-02-14] MEDS: Amiodarone 200 MG Tablet 100 MG PO (10:25)
--- NOTE | 2024-02-14 10:41 | PCM.TXEXTCAR ---
Diet Diet Order/Speech Therapy: 02/11/24 12:47 Diet: Cardiac - Heart Healthy Type of Dietary Supplement:: Ensure Plus High Protein Diet Comments: 240mL bibi. EPHP w/lunch, 120mL w/B&D Routine Orders/Code Status Routine Lab Work: CBC and BMP Code Status: Full Code Wound(s) BLE: Wound Type: lymphedema Coccyx/Bilat Buttocks: Wound Type: healed pressure injury Therapies Physical Therapy: Eval and Treat Occupational Therapy: Eval and Treat Problem/Diagnosis (1) Elevated digoxin level: Status: Acute Code(s): R78.89 - Finding of other specified substances, not normally found in blood (2) Dyspnea on exertion: Status: Acute Code(s): R06.09 - Other forms of dyspnea (3) CHRISTINA (acute kidney injury): Status: Acute Code(s): N17.9 - Acute kidney failure, unspecified (4) Hematoma of right lower leg: Status: Acute Code(s): S80.11XA - Contusion of right lower leg, initial encounter Plan 1. Dyspnea on exertion on fatigue most likely due to her physical/body habitus of bilateral lower extremity lymphedema. Patient is admitted in PCU. Serial troponins negative. Pharmacological nuclear stress test does not show ischemic changes and reported perfusion appearing within normal limit. 2D echo shows mild concentric LVH, hyperdynamic LV with EF 75%, stage II diastolic dysfunction. LA severely enlarged. RVSP 64 mmHg. Serum magnesium and phosphorus level normal. Lactic acid normal. Digoxin was elevated. -CT of the chest is unremarkable for any acute findings that would cause dyspnea -If cardiac workup is unremarkable will need follow-up with pulmonary to have outpatient PFTs 02/11: Patient feels tired could not sleep last night. Blood pressure on lower side but she is not dizzy or lightheaded. Has labile hypertension probably due to lymphedema. She is on baclofen at night for sleep. 02/13/2024: PT/OT, awaiting pre-CERT, CHRISTINA is now resolved 2. Essential HTN/HLD/paroxysmal of A-fib/pulmonary hypertension ? Continue with Xarelto, will hold digoxin secondary to toxicity with an elevated level at 2.12 ? Continue with amiodarone ? Will hold her HCTZ and losartan, there is some difficulty in ascertaining an appropriate blood pressure secondary to edema ? Once renal function improves back to baseline would likely benefit from Lasix given her RVSP of 64 mmHg her echo during this admission 3. Hypothyroidism ? Stable ? Continue with Synthroid 4. Chronic liver disease: . Patient baseline total bilirubin is around 2.0 but variable. Admitted with 2.1 most recent 1.3. Direct bilirubin ordered. Last seen in the GI office was April 2023. 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 02/05: Exact etiology of chronic liver disease is unclear patient was recommended liver biopsy during previous GI office visit with Dr. Redman. Suspected etiologies may be MASLD, chronic granulomatous disease/autoimmune disease. Last CT scan of September 2023 does not show cirrhotic nodular appearance of liver. Platelet count also normal. TB 2.1, improved to 1.4. ALT, AST and ALP low. A/G ratio 0.8. 02/06: Total Leandro 1.3, direct 0.14. Alkaline phosphatase 40 low. 5. History of Crohn's with small bowel resection x 2; with subsequent short-gut syndrome and chronic IBS; of diarrheal-type - Stable. She had last CT scan in September 2023 which showed right hemicolectomy. Normal liver multiple gallstones. Normal spleen and dilated ducts of the pancreas. She was last seen by Dr. Redman in the GI office in April 2023 at that time MRI enterography was suggested. 6. GERD ? Stable ? Continue PPI. DVT: Xarelto Allergies/Procedures Done in Hospital Allergies codeine Allergy (Severe, Verified 02/05/24 17:41) ANGIOEDEMA/LEG SWELLING Penicillins Allergy (Severe, Verified 02/05/24 17:41) ANGIOEDEMA/LEG SWELLING Sulfa (Sulfonamide Antibiotics) Allergy (Severe, Verified 02/05/24 17:41) ANGIOEDEMA/LEG SWELLING sulfasalazine (From Azulfidine) Allergy (Severe, Verified 02/05/24 17:41) ANGIOEDEMA/LEG SWELLING Procedures: None Type of Care/Length of Stay Estimated LOS: Convalescent Care Less Than 30 days Type of Care Needed: Skilled Rehab Potential: Good Prognosis: Good Additional Orders/Day of Discharge Day of Discharge: 02/14/24 Dietary and Speech Recommendations Dietitian Recommendations/Changes: Continue cardiac diet. Will order 240ml chocolate ensure plus HP with lunch tray and 120ml chocolate ensure plus HP with breakfast and dinner. Adjust ONS as needed to optimize PO. Will monitor weight, as available. Reviewed and approved by Nayely Avalos RDN, VALERIE. Discharge Plan Admission Admit Date/Time: 02/10/24 15:00 Attending Provider: Cordell Wilson Primary Care Provider: Julian Brand [facility] [employer] Providers: Stuart Vanegas; Joya Clemente; Isidro Morse Discharge Orders/Prescriptions Prescriptions: Continued pantoprazole 40 mg tablet,delayed release (DR/EC) 40 mg PO DAILY PRN (Reason: Acid Reflux) levothyroxine 50 mcg tablet 50 mcg PO DAILY Prolia 60 mg/mL syringe 60 mg subcut [id number] Qty: 1 1RF budesonide-formoterol [Symbicort] 160-4.5 mcg/actuation HFA aerosol inhaler 2 puff inhalation BID PRN (Reason: SOB) lidocaine 5 % adhesive patch,medicated 1 patch topical DAILY PRN (Reason: pain) Rx Instructions: leave on most painful area for up to 12 hrs diphenoxylate-atropine 2.5-0.025 mg tablet 5 tab PO DAILY ammonium lactate 12 % cream 1 applic TOPICAL BID Patient Comments: Apply to the lower legs twice daily sildenafil (pulm.hypertension) 20 mg tablet 20 mg PO TID morphine 15 mg tablet extended release 15 mg PO TID Patient Comments: TAKE 1 TABLET BY MOUTH 3NTIMES DAILY montelukast 10 mg tablet 10 mg PO DAILY PRN (Reason: pain) loratadine [Allergy Relief (loratadine)] 10 mg tablet 10 mg PO DAILY PRN (Reason: allergy symptoms) IVIG INFUSION 20 g IV [id number] Rx Instructions: PT GETS IVIG INFUSIONS EVERY MONTH IN ONCOLOGY DEPT. LAST INFUSION IN AUGUST amiodarone 200 mg tablet 100 mg PO Q24H cholecalciferol (vitamin D3) [Vitamin D3] 25 mcg (1,000 unit) capsule 25 mcg PO DAILY prednisone 20 mg tablet 20 mg PO BID baclofen 10 mg tablet 10 mg PO QHS Xarelto 20 mg tablet 20 mg PO DAILY Qty: 30 11RF Held digoxin 125 mcg (0.125 mg) tablet 125 mcg PO DAILY Qty: 90 3RF Hold Instructions: Resume on 02/19/24. Referrals / Follow Up: Julian Brand Chi, MD [Primary Care Provider] - Disposition Disposition (needs filled in before D/C Order can be placed): [facility]
--- NOTE | 2024-02-14 10:47 | NURSING ---
I spoke to the pt's friend Alexis to inform her that the pt will be d/c to TCU today.
--- NOTE | 2024-02-14 12:37 | PCM.DC.SUM ---
Providers Date of Admission: 02/10/24 Primary Care Physician: Dr. Julian Brand MD Consultations 02/10/24 19:34 Consult: Vascular Surgery Routine Consulting Provider: Stuart Vanegas Reason for Consult: Chronic lymphedema/right sided hematoma EMERGENT Consult: No MD Notified: Yes Date Notified: 02/10/24 Time Notified: 15:10 Method of Notification: Verbal Reason For Visit: WARNER/FATIGUE Diagnosis Discharge Diagnosis (1) Elevated digoxin level: Status: Acute Code(s): R78.89 - Finding of other specified substances, not normally found in blood (2) Dyspnea on exertion: Status: Acute Code(s): R06.09 - Other forms of dyspnea (3) CHRISTINA (acute kidney injury): Status: Acute Code(s): N17.9 - Acute kidney failure, unspecified (4) Hematoma of right lower leg: Status: Acute Code(s): S80.11XA - Contusion of right lower leg, initial encounter Medications at Discharge Home Medications pantoprazole 40 mg tablet,delayed release 40 mg PO DAILY PRN Acid Reflux 05/29/20 diphenoxylate-atropine 2.5 mg-0.025 mg tablet 5 tab PO DAILY Diarrhea/Loose Stools 09/06/20 levothyroxine 50 mcg tablet 50 mcg PO DAILY thyroid 12/09/21 ammonium lactate 12 % topical cream 1 applic topical BID dry legs 05/12/22 sildenafil (pulm.hypertension) 20 mg tablet 20 mg PO TID Pulmonary HTN 05/12/22 budesonide-formoterol HFA 160 mcg-4.5 mcg/actuation aerosol inhaler (Symbicort) 2 puff inhalation BID PRN SOB 09/24/22 lidocaine 5 % topical patch 1 patch topical DAILY PRN pain 09/24/22 Prolia 60 mg/mL subcutaneous syringe (denosumab) 60 mg subcut [id number] #1 mL 12/22/22 rivaroxaban 20 mg tablet (Xarelto) 20 mg PO DAILY Please change quantity to 30 days #30 tabs 06/09/23 digoxin 125 mcg (0.125 mg) tablet 125 mcg PO DAILY heart #90 tabs 08/24/23 morphine 15 mg tablet,extended release 15 mg PO TID PAIN 10/09/23 IVIG INFUSION 20 g IV .[id number] immunosuppression 10/18/23 loratadine 10 mg tablet (Allergy Relief (loratadine)) 10 mg PO DAILY PRN allergy symptoms 10/18/23 montelukast 10 mg tablet 10 mg PO DAILY PRN pain 10/18/23 amiodarone 200 mg tablet 100 mg PO Q24H ARRHYTHMIA 02/05/24 baclofen 10 mg tablet 10 mg PO QHS 02/05/24 cholecalciferol (vitamin D3) 25 mcg (1,000 unit) capsule (Vitamin D3) 25 mcg PO DAILY 02/05/24 prednisone 20 mg tablet 20 mg PO BID 02/05/24 Hospital Course Operations None Procedures 2-D Echocardiogram and Stress test Summary of Care Provided Minutes Spent on Discharge: 37 Hospital Course: Per HPI: Hospital Course: 1. Dyspnea on exertion on fatigue most likely due to her physical/body habitus of bilateral lower extremity lymphedema. Patient is admitted in PCU. Serial troponins negative. Pharmacological nuclear stress test does not show ischemic changes and reported perfusion appearing within normal limit. 2D echo shows mild concentric LVH, hyperdynamic LV with EF 75%, stage II diastolic dysfunction. LA severely enlarged. RVSP 64 mmHg. Serum magnesium and phosphorus level normal. Lactic acid normal. Digoxin was elevated. -CT of the chest is unremarkable for any acute findings that would cause dyspnea -If cardiac workup is unremarkable will need follow-up with pulmonary to have outpatient PFTs 02/11: Patient feels tired could not sleep last night. Blood pressure on lower side but she is not dizzy or lightheaded. Has labile hypertension probably due to lymphedema. She is on baclofen at night for sleep. 02/13/2024: PT/OT, awaiting pre-CERT, CHRISTINA is now resolved 02/14/2024: I discussed with her the plan for discharge and she expressed understanding Isabelle is going to the senior living and would like to go [facility]. Shortness of breath is much improved and she is on room air. She was given Kayexalate today because of her slight hyperkalemia of 5.6, this will not affect his discharge as it is related to the fact that her digoxin was elevated on admission. Will continue to hold the digoxin on discharge and monitor her BMP at the senior living. Would be cautious about restarting digoxin on an outpatient basis given the narrow therapeutic window 2. Essential HTN/HLD/paroxysmal of A-fib/pulmonary hypertension ? Continue with Xarelto, will hold digoxin secondary to toxicity with an elevated level at 2.12 ? Continue with amiodarone ? Once renal function improves back to baseline would likely benefit from Lasix given her RVSP of 64 mmHg her echo during this admission 3. Hypothyroidism ? Stable ? Continue with Synthroid 4. Chronic liver disease: . Patient baseline total bilirubin is around 2.0 but variable. Admitted with 2.1 most recent 1.3. Direct bilirubin ordered. Last seen in the GI office was April 2023. 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 02/05: Exact etiology of chronic liver disease is unclear patient was recommended liver biopsy during previous GI office visit with Dr. Redman. Suspected etiologies may be MASLD, chronic granulomatous disease/autoimmune disease. Last CT scan of September 2023 does not show cirrhotic nodular appearance of liver. Platelet count also normal. TB 2.1, improved to 1.4. ALT, AST and ALP low. A/G ratio 0.8. 02/06: Total Leandro 1.3, direct 0.14. Alkaline phosphatase 40 low. 5. History of Crohn's with small bowel resection x 2; with subsequent short-gut syndrome and chronic IBS; of diarrheal-type - Stable. She had last CT scan in September 2023 which showed right hemicolectomy. Normal liver multiple gallstones. Normal spleen and dilated ducts of the pancreas. She was last seen by Dr. Redman in the GI office in April 2023 at that time MRI enterography was suggested. 6. GERD ? Stable ? Continue PPI. DVT: Xarelto Physical Exam Narrative General: Alert, Oriented x3, Cooperative, No apparent distress HEENT: Atraumatic, PERRLA, EOMI, Normocephalic Oral: Moist Mucosa Neck: Supple, No JVD Lungs: Diminished, Normal air movement, No rhonchi, No wheeze, No rales Cardiovascular: Regular rate, Regular Rhythm, Normal S1, Normal S2, No murmurs Abdomen: Soft, Non Tender, Non-Distended, No Hepato-splenomegaly Extremities: Edema, Capillary Refill Less than 3 Seconds Skin: No rashes, No breakdown Musculoskeletal: No Tenderness to Palpation of Joints or Extremities Neurological: No focal neurological deficits, Motor Exam 5/5 strength throughout, Sensory exam intact to light touch and pain Psych/Mental Status: Normal Affect, Appropriate Weight / BMI Weight Weight: 258 lb 6.39 oz Body Mass Index (BMI) 43.0 ABG / Lab / Microbiology Data 02/13/24 05:35 02/14/24 07:50 Laboratory: Laboratory Results - last 24 hr 02/14/24 07:50: Sodium 137, Potassium 5.6 H, Chloride 103, Carbon Dioxide 33.0 H, Anion Gap 1 L, BUN 45 H, Creatinine 1.23 H, Estim Creat Clear Calc 54.48, Est GFR (MDRD) Af Amer 56 L, Est GFR (MDRD) Non-Af 46 L, BUN/Creatinine Ratio 36.6 H, Glucose 107 H, Calcium 8.8 Microbiology: Microbiology 02/10/24 12:58 Urine, Clean Catch Urine Culture - Final Yeast, not Aziza albicans Meaningful Use Info Meaningful Use Meaningful Use Diagnoses (Choose all that apply): None applicable Ischemic Stroke Statin Dosing Therapy Reference: STATIN DOSE THERAPY REFERENCE: * Patients > 75 years receive moderate or high dose statin therapy. * Patients 75 years or YOUNGER should receive HIGH intensity statin dose unless contraindicated. You will be required to document reason for non-treatment if statin daily dose does not meet guidelines. HIGH DOSE STATIN THERAPY DAILY Atorvastatin > than or = to 40 mg Rosuvastatin > than or = to 20 mg Amlodipine + Atorvastatin > than or = to 2.5/40 mg Ezetimibe + Simvastatin 10/80 mg Simvastatin 80mg Discharge Plan Admission Admit Date/Time: 02/10/24 15:00 Attending Provider: Cordell Wilson Primary Care Provider: Julian Brand Chi Consulting Providers: Stuart Vanegas; Joya Clemente; Isidro Morse Discharge Orders/Prescriptions Prescriptions: Continued pantoprazole 40 mg tablet,delayed release (DR/EC) 40 mg PO DAILY PRN (Reason: Acid Reflux) levothyroxine 50 mcg tablet 50 mcg PO DAILY Prolia 60 mg/mL syringe 60 mg subcut [id number] Qty: 1 1RF budesonide-formoterol [Symbicort] 160-4.5 mcg/actuation HFA aerosol inhaler 2 puff inhalation BID PRN (Reason: SOB) lidocaine 5 % adhesive patch,medicated 1 patch topical DAILY PRN (Reason: pain) Rx Instructions: leave on most painful area for up to 12 hrs diphenoxylate-atropine 2.5-0.025 mg tablet 5 tab PO DAILY ammonium lactate 12 % cream 1 applic TOPICAL BID Patient Comments: Apply to the lower legs twice daily sildenafil (pulm.hypertension) 20 mg tablet 20 mg PO TID morphine 15 mg tablet extended release 15 mg PO TID Patient Comments: TAKE 1 TABLET BY MOUTH 3NTIMES DAILY montelukast 10 mg tablet 10 mg PO DAILY PRN (Reason: pain) loratadine [Allergy Relief (loratadine)] 10 mg tablet 10 mg PO DAILY PRN (Reason: allergy symptoms) IVIG INFUSION 20 g IV .[id number] Rx Instructions: PT GETS IVIG INFUSIONS EVERY MONTH IN ONCOLOGY DEPT. LAST INFUSION IN AUGUST amiodarone 200 mg tablet 100 mg PO Q24H cholecalciferol (vitamin D3) [Vitamin D3] 25 mcg (1,000 unit) capsule 25 mcg PO DAILY prednisone 20 mg tablet 20 mg PO BID baclofen 10 mg tablet 10 mg PO QHS Xarelto 20 mg tablet 20 mg PO DAILY Qty: 30 11RF Held digoxin 125 mcg (0.125 mg) tablet 125 mcg PO DAILY Qty: 90 3RF Hold Instructions: Resume on 02/19/24. Referrals / Follow Up: Julian Brand Chi, MD [Primary Care Provider] - Disposition Disposition (needs filled in before D/C Order can be placed): Longterm Facility Charges/Coding Visit Charges Inpatient E&M: 59452 Disch Hosp >30min
[2024-02-14] MEDS: Sodium Polystyrene Sulfonate 15 GM/60 ML UDC PO (12:49)
[2024-02-14] MEDS: 0.9% Saline Lock 10 ML Syringe IV (13:01)
== END 2024-02-14 13:36 | disposition skilled nursing facility (03) | DRG 607 ==
LOC: ED 15:17 → PCU 19:02
PROVIDERS: Internal Medicine; Admitting Provider Internal Medicine; Emergency Provider Emergency Medicine; PCP Family Medicine Geriatric Medicine; Visit Provider Family Medicine
DX: I89.0 Lymphedema, not elsewhere classified (principal); N17.9 Acute kidney failure, unspecified; E87.20 Acidosis, unspecified; K90.829 Short bowel syndrome, unspecified; Z68.41 Body mass index [BMI] 40.0-44.9, adult; K50.90 Crohn's disease, unspecified, without complications; I27.20 Pulmonary hypertension, unspecified; K74.60 Unspecified cirrhosis of liver; J44.9 Chronic obstructive pulmonary disease, unspecified; E03.9 Hypothyroidism, unspecified; I10 Essential (primary) hypertension; I48.0 Paroxysmal atrial fibrillation; E66.01 Morbid (severe) obesity due to excess calories; G47.33 Obstructive sleep apnea (adult) (pediatric); M79.7 Fibromyalgia; K21.9 Gastro-esophageal reflux disease without esophagitis; R06.09 Other forms of dyspnea; M81.0 Age-related osteoporosis without current pathological fracture; G89.4 Chronic pain syndrome; Z79.899 Other long term (current) drug therapy; Z79.01 Long term (current) use of anticoagulants; Z79.51 Long term (current) use of inhaled steroids; Z87.891 Personal history of nicotine dependence; Z86.718 Personal history of other venous thrombosis and embolism
CPT/HCPCS: 36415; 71045; 71250; 78452; 80048; 80053; 80162; 81001; 83605; 83735; 83880; 84100; 84443; 84484; 85025; 87086; 87088; 93005; 93017; 93306; 94640; 94668; 97110; 97162; 97166; 97802; 99252; 99285; A9500; J7120; P9612; Q9957; A4216; C8929; G0463; J2405; J2785

== ENCOUNTER 2024-02-14 13:40 | Inpatient (IN) | payer MEDICARE, OTHER, SELFPAY ==
[2024-02-14 13:51] VITALS: BP 158/60; PULSE 110; RESP 18; TEMP 36.3; O2SAT 92; BMI 43.4
--- NOTE | 2024-02-14 14:34 | PCM.HP.STD ---
HPI - General General Date of Admission: 02/14/24 Date of Service: 02/15/24 Chief Complaint: Here for rehabilitation. HPI Narrative 02/10/2024 RAFIQ ALCANTAR, is a 68 Female who presents to [facility] ED with edema. Weakness, unable to care for self home alone. Unable to get up out of chair. EMS called. Levaquin given for urinary tract infection, urine culture sent. Unable to go home safely. 02/10/2024 Admit [facility]. Evaluate fatigue. Levaquin 750mg iv daily for urinary tract infection. IV fluids for acute kidney injury, lactic acidosis. Hold digoxin for digoxin toxicity. PT/OT. 02/10/2024 Echo Mild concentric LVH. EF 75% hyperdynamic. Stage 2 diastolic dysfunction. RVSP 64mm HG. 02/11/[address] chest negative. Stop Levaquin, UTI ruled out. LR 1 liter iv bolus, for low blood pressure, lactic acidosis. 02/11/2024 Nuclear stress test negative. 02/12/2024 Tired, poor sleep, low blood pressure, weak. Blood pressure medications held 2/2 low blood pressure. Digoxin held 2/2 Digoxin toxicity. 02/13/2024 Doing well, no overnight issues. PT/OT SNF pending Pre-CERT. Acute kidney injury resolved. 02/14/2024 Admit to TCU with debility, here for rehabilitation, strengthening, prior to discharge home alone. 02/15/2024 Resident c/o left hand pain swelling, bruising, redness. [facility] Medical History (Updated 02/14/24 @ 14:[address] Julian Brand MD) Kidney disease GI bleed DVT (deep venous thrombosis) Atrial fibrillation Chest pain On home oxygen therapy Hyperbilirubinemia Lymphedema Shakiness Fatigue Mild cognitive impairment Secondary hyperparathyroidism Secondary adrenal insufficiency Cellulitis of leg Hyponatremia Hyperparathyroidism Sacroiliitis Weight loss Unintentional weight loss Screening for colon cancer Left ureteral calculus Paroxysmal atrial fibrillation Essential hypertension Skin lesion Thrombocytosis Chronic pain Former smoker CPAP (continuous positive airway pressure) dependence Sleep apnea A-fib New onset a-fib History of echocardiogram Chronic bronchitis History of blood transfusion Pulmonary HTN Bone fracture Vitamin deficiency Skin cancer PNE Back problem Osteoporosis Osteopenia OA (osteoarthritis) Arthritis Gastrointestinal distress Gallstones COPD (chronic obstructive pulmonary disease) Anemia Seasonal allergies Pancreatic divisum Fibromyalgia Immunodeficiency disorder, selective immunoglobulin Asthma Crohns disease HTN (hypertension) GERD (gastroesophageal reflux disease) SARAHY (obstructive sleep apnea) Hypertension Home Medications ?Medication ?Instructions ?Recorded ?Last Taken ?Type pantoprazole 40 mg tablet,delayed 40 mg PO DAILY PRN Acid Reflux 05/29/20 02/14/24 History release diphenoxylate-atropine 2.5 5 tab PO DAILY Diarrhea/Loose 09/06/20 02/14/24 History mg-0.025 mg tablet Stools levothyroxine 50 mcg tablet 50 mcg PO DAILY thyroid 12/09/21 02/14/24 History ammonium lactate 12 % topical cream 1 applic topical BID dry legs 05/12/22 02/13/24 History sildenafil (pulm.hypertension) 20 20 mg PO TID Pulmonary HTN 05/12/22 02/14/24 History mg tablet budesonide-formoterol HFA 160 2 puff inhalation BID PRN SOB 09/24/22 10/18/23 History mcg-4.5 mcg/actuation aerosol inhaler (Symbicort) lidocaine 5 % topical patch 1 patch topical DAILY PRN pain 09/24/22 10/18/23 History Prolia 60 mg/mL subcutaneous 60 mg subcut [id number] #1 mL 12/22/22 Unknown Rx syringe (denosumab) rivaroxaban 20 mg tablet (Xarelto) 20 mg PO DAILY Please change 06/09/23 02/13/24 Rx quantity to 30 days #30 tabs digoxin 125 mcg (0.125 mg) tablet 125 mcg PO DAILY heart #90 tabs 08/24/23 10/18/23 Rx morphine 15 mg tablet,extended 15 mg PO TID PAIN 10/09/23 02/13/24 History release IVIG INFUSION 20 g IV .[id number] immunosuppression 10/18/23 12/07/23 History loratadine 10 mg tablet (Allergy 10 mg PO DAILY PRN allergy symptoms 10/18/23 Unknown History Relief (loratadine)) montelukast 10 mg tablet 10 mg PO DAILY PRN pain 10/18/23 10/18/23 History amiodarone 200 mg tablet 100 mg PO Q24H ARRHYTHMIA 02/05/24 02/14/24 History baclofen 10 mg tablet 10 mg PO QHS spasms 02/05/24 02/13/24 History cholecalciferol (vitamin D3) 25 25 mcg PO DAILY supplement 02/05/24 02/14/24 History mcg (1,000 unit) capsule (Vitamin D3) prednisone 20 mg tablet 20 mg PO BID steroid 02/05/24 02/14/24 History Allergy/AdvReac Type Severity Reaction Status Date / Time codeine Allergy Severe ANGIOEDEMA/LEG Verified 02/05/24 17:41 SWELLING Penicillins Allergy Severe ANGIOEDEMA/LEG Verified 02/05/24 17:41 SWELLING Sulfa (Sulfonamide Allergy Severe ANGIOEDEMA/LEG Verified 02/05/24 17:41 Antibiotics) SWELLING sulfasalazine (From Allergy Severe ANGIOEDEMA/LEG Verified 02/05/24 17:41 Azulfidine) SWELLING Family History Father Anemia Heart disease Hypertension CVA (cerebral vascular accident) Mother Arthritis Cancer Osteoporosis Sister Arthritis Lung disease Surgical History History of cholecystectomy History of appendectomy History of kyphoplasty (~07/07/16) Leg fracture, right History of left knee replacement History of tonsillectomy History of total hysterectomy with bilateral salpingo-oophorectomy (BSO) History of pneumonectomy History of resection of small bowel History of right heart catheterization (RHC) (~05/09/16) Social History (Updated 02/14/24 @ 14:[address] 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 ; Denies joint pain or joint swelling Integumentary Integumentary: Denies rash or wounds Neurologic Neurologic: Denies focal weakness, numbness or tingling Psychiatric Psychiatric: Denies anxiety, auditory hallucinations, depression, homicidal ideation or suicidal ideation Vital Signs Vital Signs Vital Signs: 02/14/24 13:51 Temperature 97.4 F L Temperature Source Temporal Pulse Rate 110 H Respiratory Rate 18 Blood Pressure 158/60 H Blood Pressure Mean 92 Blood Pressure Source Monitor Blood Pressure Position Semi-Fowlers Blood Pressure Location Left Arm Pulse Ox 92 Oxygen Delivery Method Room Air Weight Weight: 122.107 kg Body Mass Index (BMI) 43.4 Physical Exam Const alert General Appearance: cooperative HEENT normocephalic Eyes PERRL and EOMs intact bilaterally Neck supple, no JVD and no carotid bruits Resp normal respiratory effort, normal air movement and clear to auscultation bilaterally Cardio regular rate and regular rhythm GI normal to inspection, nondistended, normoactive bowel sounds, non-tender and non-distended Extremity normal capillary refill Extremity Narrative: 3+ bilateral lower extremity edema. Left hand with bruising, swelling, tenderness, redness, extending up left arm to elbow. General Extremity: Negative for edema Skin no rashes or lesions noted General Skin Exam: no breakdown Psych affect normal Appearance: appropriate Results Lab / Micro Data 02/15/24 06:40 02/15/24 06:40 Assessment & Plan Assessment/Plan (1) Debility: (2) Weakness: (3) CHRISTINA (acute kidney injury): (4) Digoxin toxicity: (5) Hypotension: QUALIFIERS: Hypotension type: unspecified hypotension type Qualified Code(s): I95.9 - Hypotension, unspecified (6) Lactic acidosis: (7) Lymphedema: (8) Atrial fibrillation: (9) Hyperparathyroidism: (10) Osteoporosis: QUALIFIERS: Osteoporosis type: age-related Presence of current pathological fracture: without current pathological fracture Qualified Code(s): M81.0 - Age-related osteoporosis without current pathological fracture (11) GERD (gastroesophageal reflux disease): (12) Hypothyroidism: QUALIFIERS: Hypothyroidism type: acquired Qualified Code(s): E03.9 - Hypothyroidism, unspecified (13) Pulmonary hypertension: (14) COPD (chronic obstructive pulmonary disease): QUALIFIERS: COPD type: unspecified COPD Qualified Code(s): J44.9 - Chronic obstructive pulmonary disease, unspecified (15) Chronic back pain: QUALIFIERS: Back pain laterality: bilateral Back pain location: low back pain Sciatica presence: without sciatica Qualified Code(s): M54.5 - Low back pain; G89.29 - Other chronic pain (16) Muscle spasm: PLAN: Plan 68 year old female with below past medical history hospitalized for weakness, acute kidney injury, lactic acidosis, acute kidney injury, hypotension, admitted to TCU with debility, here for rehabilitation, strengthening, prior to discharge home alone. Debility - PT/OT. Pain - MS Contin 15mg tid, Lidoderm patch 1 patch td daily prn. Bowel - Lomotil 5 tablets daily. Adult immunization - Administer pneumonia vaccine, covid vaccine, flu vaccine as appropriate. DVT prophylaxis - on Xarelto. Atrial fibrillation - Amiodarone 100mg daily, Xarelto 20mg daily. Skin irritation - Ammonium Lactate topical bid. Muscle spasm - Baclofen 10mg qhs. Vitamin D deficiency - Vitamin D3 25mcg daily. COPD - Fluticasone/Salmeterol 232-14mcg 1 puff bid prn. Hypothyroidism - Levothyroxine 50mcg daily. Allergic rhinitis - Loratadine 10mg daily prn, Singulair 10mg daily prn. GERD - Pantoprazole 40mg daily prn. Adrenal insufficiency - Prednisone 20mg bidcm. Pulmonary hypertension - Revatio 20mg tid. Left upper extremity swelling - Doppler ultrasound LLE to rule out DVT. Left upper extremity cellulitis - Doxycycline 100mg bid x 7 days, Levaquin 500mg daily x 7 days.
[2024-02-14] MEDS: Rivaroxaban 20 MG Tablet PO (17:39)
[2024-02-14] MEDS: predniSONE 20 MG Tablet PO (17:39)
[2024-02-14] MEDS: Ammonium Lactate 225 gm Bottle 1 APPLIC TOPICAL (22:26)
[2024-02-14] MEDS: Baclofen 10 MG Tablet PO (22:27)
[2024-02-14] MEDS: SILDENAFIL CITRATE 20 MG TABLET PO (22:27)
[2024-02-14] MEDS: morphine SR 15 MG Tablet PO (22:31)
--- NOTE | 2024-02-15 01:08 | NURSING ---
This nurse, Sarah, CARD LACER, and resident counted $260 astorga and placed a $50 [employer] gift card in a sealed envelope. Envelope locked in [employer].
[2024-02-15] MEDS: SILDENAFIL CITRATE 20 MG TABLET PO ×3 (05:37→22:41)
[2024-02-15] MEDS: Levothyroxine 50 MCG Tablet PO (05:37)
[2024-02-15] MEDS: morphine SR 15 MG Tablet PO ×3 (05:37→22:40)
[2024-02-15 07:14] LABS: Absolute Lymphocyte Count 0.89 X10^3/uL (0.83-4.51); Absolute Neutrophil Count 16.6 X10^3/uL (2.0-7.7); Basophil# 0.04 X10^3/uL; Basophil% 0.2 % (0-1); Hematocrit 34.5 % (37-47); Hemoglobin 10.8 g/dL (12.0-15.0); Lymphocyte # 0.89 X10^3/ul (0.83-4.51); Lymphocyte % 4.6 % (19-41); Mean Corp Hgb Conc 31.3 g/dL (32-36); Mean Corpuscular Hgb 30.7 pg (27.0-32.0); Mean Platelet Vol. 9.4 fl (6.2-12.0); Monocyte% 6.2 % (0-10); NRBC Flagged by Analyzer 0 % (0-5); Neutrophil # 16.57 X10^3/uL (2.7-7.7); Neutrophil % 85.6 % (47-70); Platelet Count 355 K/mm3 (150-450); RBC Distribution Width SD 54.5 fl (35.1-43.9); Red Blood Count 3.52 M/mm3 (4.2-5.4); White Blood Count 19.4 K/mm3 (4.4-11.0)
[2024-02-15 07:42] LABS: Anion Gap 6 (5-15); BUN 44 mg/dL (7-18); BUN/Creat Ratio 40.7 RATIO (10-20); Calcium,Total 9.2 mg/dL (8.5-10.1); Chloride 100 mmol/L (98-107); Creatinine, Serum 1.08 mg/dL (0.55-1.02); EST Glomerular Filtration Rate 53 mL/min (>60); Est Glom Filt Rate - Afr Amer 65 mL/min (>60); Glucose 110 mg/dL (74-106); Potassium 5.2 mmol/L (3.5-5.1); Sodium Level 136 mmol/L (136-145)
[2024-02-15 08:51] VITALS: O2SAT 94
[2024-02-15] MEDS: predniSONE 20 MG Tablet PO ×2 (10:23→17:33)
[2024-02-15] MEDS: Amiodarone 200 MG Tablet 100 MG PO (10:24)
[2024-02-15] MEDS: Cholecalciferol (VIT D3) 25 MCG TABLET (1,000 UNITS) PO (10:25)
--- NOTE | 2024-02-15 10:27 | NURSING ---
Vice President Sales Note; Activity Asset: Brain Treadwell is independent in her choice of daily activities. Her friend will visit and bring her items she may need. She stated she prefers in room activities at this time due to not feeling well. She welcomes visits from the choir singer and therapy dog when available and [facility]'s will come and visits as well. Staff will remind her of weekly activities and respect her right to say no.
[2024-02-15] MEDS: Doxycycline 100 MG CAPSULE PO ×2 (10:28→22:41)
[2024-02-15] MEDS: Cefdinir 300 MG Capsule PO ×2 (10:28→22:40)
[2024-02-15] MEDS: Tuberculin,Purif.prot.deriv. 50 TU/ML Vial 0.1 ML ID (10:34)
[2024-02-15] MEDS: Ammonium Lactate 225 gm Bottle 1 APPLIC TOPICAL ×2 (10:35→22:41)
[2024-02-15] MEDS: Lidocaine 5% Patch 1 PATCH TOPICAL (10:37)
[2024-02-15 10:52] VITALS: BP 135/68; PULSE 103
[2024-02-15 11:00] VITALS: O2SAT 91
[2024-02-15 12:34] VITALS: O2SAT 90
[2024-02-15] MEDS: Sodium Polystyrene Sulfonate 15 GM/60 ML UDC 30 GM PO (12:42)
[2024-02-15 15:17] VITALS: BP 111/86; PULSE 96; RESP 18; TEMP 36.2; O2SAT 100
--- NOTE | 2024-02-15 15:23 | NURSING ---
MEPILEX TO PT MID BACK DUE TO REDNESS AND PRESSURE AREA.
--- NOTE | 2024-02-15 15:27 | WOUNDNOTE ---
skin photo: right lower leg
--- NOTE | 2024-02-15 15:28 | WOUNDNOTE ---
skin photo: left lower leg
--- NOTE | 2024-02-15 15:29 | WOUNDNOTE ---
Was consulted on patient for lymphedema. bilateral lower legs very large with small weeping areas. d/t the size and shape of the legs, compression wraps are not advised. wraps would constrict at the ankles. pt states she cannot tolerate wraps anyway d/t this happening in the past. patient does have lymphedema pumps at home. advised pt to have family bring pumps in if possible. will monitor. see skin photos.
[2024-02-15] MEDS: Rivaroxaban 20 MG Tablet PO (17:33)
[2024-02-15] MEDS: COVID VAC 24-25 (12UP)(MODERNA)/PF 50 MCG/0.5 ML SYRINGE IM (17:35)
--- NOTE | 2024-02-15 17:39 | NURSING ---
COVID VACCINE GIVEN IN LT DELT. PT TOLERATED WELL. WILL MONITOR.
[2024-02-15] MEDS: Baclofen 10 MG Tablet PO (22:41)
[2024-02-15 23:00] VITALS: PULSE 104; RESP 16; O2SAT 99
--- NOTE | 2024-02-16 04:50 | NURSING ---
Patient requests to use bedside commode, lack of motivation observed with self limiting behavior AEB patient states I can't stand, declines to attempt to stand despite therapy recommendation for AX2 SPT transfers. Patient requests mechanical lift for transfer to BSC, states I don't use a bedpan, many have tried and it has never been accomplished. Patient unable to move legs in bed, EAX2 with bed mobility/BLE movement, mechanical lift per request x3 staff assist due to lymphedema and inability to control BLE, patient states you might have to pull the poop from my butt if I need you to. Patient encouraged to move bowels and take time as needed to promote bowel movement, patient states does not like use of mechanical lift and does not feel comfortable on BSC, states unable to use toilet and continues to declines offer for bedpan, states I weigh over 300 lbs, it can't be done, patient educated and encouraged that use of bedpan is possible if patient would prefer to attempt. Patient then stands with limited assist x2 from toilet and pivots onto bed with limited assist. Patient able to stand and bear weight, patient states My family was trying to convince me last night on the phone that I can do things, I just need to try. Patient able to move bowels XL in size without issue. Patient encouraged to attempt to stand and perform ADLs as able and with staff assist, expresses thanks for encouragement. Assist x3 from sitting to laying, positioned for comfort. Denies further requests. Call light in reach. No distress observed or reported. O2 at 3L via nc.
[2024-02-16 06:28] LABS: Anion Gap 6 (5-15); BUN 46 mg/dL (7-18); BUN/Creat Ratio 37.4 RATIO (10-20); Calcium,Total 8.8 mg/dL (8.5-10.1); Chloride 102 mmol/L (98-107); Creatinine, Serum 1.23 mg/dL (0.55-1.02); EST Glomerular Filtration Rate 46 mL/min (>60); Est Glom Filt Rate - Afr Amer 56 mL/min (>60); Estimated Creatinine Clearance 56.72 ml/min; Glucose 121 mg/dL (74-106); Potassium 4.7 mmol/L (3.5-5.1); Sodium Level 137 mmol/L (136-145)
[2024-02-16] MEDS: morphine SR 15 MG Tablet PO ×3 (06:33→21:56)
[2024-02-16] MEDS: SILDENAFIL CITRATE 20 MG TABLET PO ×3 (06:34→21:58)
[2024-02-16] MEDS: Levothyroxine 50 MCG Tablet PO (06:34)
[2024-02-16 06:41] VITALS: BP 111/68; PULSE 103; RESP 18
[2024-02-16] MEDS: predniSONE 20 MG Tablet PO ×2 (09:00→17:15)
[2024-02-16] MEDS: Doxycycline 100 MG CAPSULE PO ×2 (09:00→21:58)
[2024-02-16] MEDS: Cholecalciferol (VIT D3) 25 MCG TABLET (1,000 UNITS) PO (09:00)
[2024-02-16] MEDS: Cefdinir 300 MG Capsule PO ×2 (09:00→21:58)
[2024-02-16] MEDS: Ammonium Lactate 225 gm Bottle 1 APPLIC TOPICAL (09:01)
[2024-02-16] MEDS: Diphenoxylate/Atrop 1 Tablet 5 TABLET PO (10:11)
[2024-02-16] MEDS: Amiodarone 200 MG Tablet 100 MG PO (10:40)
[2024-02-16 10:42] VITALS: BP 79/49; PULSE 107; RESP 16; TEMP 36.3; O2SAT 94
--- NOTE | 2024-02-16 11:08 | PCM.PN.DRR ---
Documented by User: Alessandra Cotton 02/16/24 11:43 TCU RX Drug Regimen Review Subjective/Objective Subjective/Objective: Subjective: TCU Admission. 68 YOF presented to the ER with edema. Hospitalized for weakness, acute kidney injury, lactic acidosis, acute kidney injury, hypotension. Admitted to TCU with debility for strengthening and rehabilitation. Objective: Allergies codeine Allergy (Severe, Verified 02/05/24 17:41) ANGIOEDEMA/LEG SWELLING Penicillins Allergy (Severe, Verified 02/05/24 17:41) ANGIOEDEMA/LEG SWELLING Sulfa (Sulfonamide Antibiotics) Allergy (Severe, Verified 02/05/24 17:41) ANGIOEDEMA/LEG SWELLING sulfasalazine (From Azulfidine) Allergy (Severe, Verified 02/05/24 17:41) ANGIOEDEMA/LEG SWELLING Current Medications Generic Name Dose Route Start Last Admin Trade Name Freq PRN Reason Stop Dose Admin Amiodarone HCl 100 mg 02/15/24 10:00 02/16/24 10:40 Amiodarone 200 Mg Tablet PO 100 mg DAILY MINOR Administration Baclofen 10 mg 02/14/24 22:00 02/15/24 22:41 Baclofen 10 Mg Tablet PO 10 mg QHS MINOR Administration Cefdinir 300 mg 02/15/24 10:00 02/16/24 09:00 Cefdinir 300 Mg Capsule PO 02/22/24 10:01 300 mg Q12 MINOR Administration Cholecalciferol 25 mcg 02/15/24 10:00 02/16/24 09:00 Cholecalciferol (Vit D3) 25 Mcg Tablet (1,000 Units) PO 25 mcg DAILY MINOR Administration Digoxin 125 mcg 02/19/24 10:00 Digoxin 125 Mcg Tablet PO DAILY MINOR Diphenoxylate HCl/Atropine 5 tablet 02/15/24 10:00 02/16/24 10:11 Diphenoxylate/Atrop 1 Tablet PO 5 tablet DAILY MINOR Administration Doxycycline Monohydrate 100 mg 02/15/24 10:00 02/16/24 09:00 Doxycycline 100 Mg Capsule PO 02/22/24 10:01 100 mg BID MINOR Administration Lactic Acid 1 applic 02/14/24 22:00 02/16/24 09:01 Ammonium Lactate 225 Gm Bottle TOPICAL 1 applic BID MINOR Administration Levothyroxine Sodium 50 mcg 02/15/24 06:00 02/16/24 06:34 Levothyroxine 50 Mcg Tablet PO 50 mcg DAILY@0600 [facility] Administration Lidocaine 1 patch 02/14/24 14:08 02/15/24 10:37 Lidocaine 5% Patch TOPICAL 1 patch DAILY PRN Administration Pain Score 1-10 Protocol Loratadine 10 mg 02/14/24 14:08 Loratadine 10 Mg Tablet PO DAILY PRN allergy symptoms Midodrine 5 mg 02/16/24 12:45 Midodrine Hcl 5 Mg Tablet PO TIDCM [facility] Montelukast Sodium 10 mg 02/14/24 14:08 Montelukast 10 Mg Tablet PO DAILY PRN ALLERGIES Morphine Sulfate 15 mg 02/14/24 22:00 02/16/24 06:33 Morphine Sr 15 Mg Tablet PO 15 mg TID [facility] Administration Pantoprazole Sodium 40 mg 02/14/24 14:08 Pantoprazole Sodium 40 Mg Tablet PO DAILY PRN Acid Reflux Prednisone 20 mg 02/14/24 17:00 02/16/24 09:00 Prednisone 20 Mg Tablet PO 20 mg BIDCM [facility] Administration Rivaroxaban 20 mg 02/14/24 17:00 02/15/24 17:33 Rivaroxaban 20 Mg Tablet PO 20 mg [facility]NER [facility] Administration Fluticasone/Salmeterol 1 puff 02/14/24 14:40 Fluticasone/Salmeterol 232-14 Inhaler INHALATION BID PRN SHORTNESS OF BREATH Sildenafil Citrate 20 mg 02/14/24 22:00 02/16/24 06:34 Sildenafil Citrate 20 Mg Tablet PO 20 mg TID MINOR Administration Tuberculin PPD 0.1 ml 02/22/24 10:00 Tuberculin,Purif.Prot.Deriv. 50 Tu/Ml Vial ID 02/22/24 10:01 X1 ONE Problem List Muscle spasm (Acute) GERD (gastroesophageal reflux disease) (Acute) Hyperparathyroidism (Acute) Atrial fibrillation (Acute) Lactic acidosis (Acute) Digoxin toxicity (Acute) Weakness (Acute) Debility (Acute) CHRISTINA (acute kidney injury) (Acute) Hypotension (Acute) Hypothyroidism (Chronic) Pulmonary hypertension (Chronic) Osteoporosis (Chronic) Chronic back pain (Chronic) COPD (chronic obstructive pulmonary disease) (Chronic) Vital Signs Temp Pulse Resp BP Pulse Ox O2 Del Method O2 Flow Rate 97.3 F L 107 H 16 79/49 L 94 Room Air 3 02/16/24 10:42 02/16/24 10:42 02/16/24 10:42 02/16/24 10:42 02/16/24 10:42 02/16/24 10:42 02/16/24 06:41 Oxygen Flow Rate (L/min) 3 Oxygen Delivery Method Room Air Weight: 122.107 kg Body Mass Index (BMI) 43.4 Sodium 137 mmol/L (136-145) 02/16/24 05:05 Potassium 4.7 mmol/L (3.5-5.1) 02/16/24 05:05 Chloride 102 mmol/L (98-107) 02/16/24 05:05 Carbon Dioxide 29.0 mmol/L (21.0-32.0) 02/16/24 05:05 Anion Gap 6 (5-15) 02/16/24 05:05 BUN 46 mg/dL (7-18) H 02/16/24 05:05 Creatinine 1.23 mg/dL (0.55-1.02) H 02/16/24 05:05 Est GFR (MDRD) Af Amer 56 mL/min (>60) L 02/16/24 05:05 Est GFR (MDRD) Non-Af 46 mL/min (>60) L 02/16/24 05:05 BUN/Creatinine Ratio 37.4 RATIO (10-20) H 02/16/24 05:05 Glucose 121 mg/dL (74-106) H 02/16/24 05:05 Assessment/Plan: 1. Pain: morphine SR 15mg PO TID and lidocaine 5% patch 1 patch topical daily PRN pain. Resident has had 1 PRN dose. Please continue to monitor for increased pain, PRN usage, constipation, rash, and respiratory depression. 2. Bowel: diphenoxylate/atropine 5T PO daily. Please continue to monitor for diarrhea and constipation. Last documented bowel movement 02/14. 3. Atrial fibrillation: amiodarone 100mg PO daily, digoxin 125mcg PO daily and rivaroxaban 20mg PO dinner. Please continue to monitor BP (last 79/49), HR (last 107), potassium (last 4.7mmol/L), sodium (last 137mmol/L), nausea, digoxin level (last WNL 02/12/24), S/S of bleeding/stroke, renal function and hemoglobin (last 10.8g/dL). 4. Pulmonary hypertension: Revatio 20mg PO TID. Please consider adding hold parameters as the last BP was (last 79/49). Thanks. 5. Left upper extremity cellulitis: cefdinir 300mg PO BID thru 02/22/24 and doxycycline 100mg PO BID thru 02/22/24. Please continue to monitor for improvement in infection, diarrhea, stool discoloration, renal function and upset stomach. 6. COPD: fluticasone/salmeterol 232/14mcg 1puff inhalation BID PRN SOB. No PRN doses given. Please continue to monitor for SOB and PRN usage. 7. Hypothyroidism: levothyroxine 50mcg PO daily. Please continue to monitor TSH (last 02/10/24), T4 (last 12/21/23) and S/S of hypo/hyperthyroidism. 8. Muscle spasms: baclofen 10mg PO QHS. Please continue to monitor for muscle spasms, hypotonia and drowsiness. 9. Adrenal insufficiency: prednisone 20mg PO BIDCM. Please continue to monitor for skin thinning, hair loss and insomnia. 10. GERD: pantoprazole 40mg PO daily PRN acid reflux. Resident has not had any doses. Please continue to monitor for reflux and PRN usage. 11. Allergic rhinitis: loratadine 10mg PO daily PRN allergies and montelukast 10mg PO daily PRN allergies. Please add directions as to which medication should be given first line vs second line for allergies. Thanks. No PRN doses have been given. Please continue to monitor for allergies and PRN usage. 12. Vitamin D deficiency: cholecalciferol 25mcg PO daily. Please continue to monitor vitamin D levels (last 09/23/23). 13. Skin irritation: ammonium Lactate topical bid. Please continue to monitor. 14. Hypotension (last BP 79/49): midodrine 5mg PO TIDM. Please continue to monitor BP. Assessment/Plan for indications treated with psychotropic medications: None Medical chart and medication regimen reviewed. The following medication irregularities or issues were identified: 1. Revatio 20mg PO TID. Please consider adding hold parameters as the last BP was (last 79/49). Thanks. 2. Loratadine 10mg PO daily PRN allergies and montelukast 10mg PO daily PRN allergies. Please add directions as to which medication should be given first line vs second line for allergies. Thanks. Date Date of Note:: 02/16/24 Documented by User: Dr. Julian Brand MD 02/16/24 13:29 TCU RX Drug Regimen Review Provider Comments Provider responsibility Provider Comments to Recommendations by Pharmacy: Agree
[2024-02-16] MEDS: Midodrine HCl 5 MG Tablet PO ×2 (13:05→17:29)
[2024-02-16 13:06] VITALS: BP 81/34; PULSE 109
[2024-02-16 13:08] VITALS: O2SAT 96
--- NOTE | 2024-02-16 13:15 | CASEMGMT ---
Addendum entered by Jesi Rendon 02/16/24 13:39: SW submitted referral to [facility] Care Coordination program via website. Original Note: Social Work SW met with patient at bedside. Introduced self and role. Pt's friend, Alexis, was present and pt granted permission for friend to remain present. Verified/updated contacts. Pt states her friend, Gabbie, is HCPOA, and will have friend locate them to provide a copy. patient confirmed code status as full code. SW educated in detail to Medicare benefit and copay coverage for pt and friend to understand. Pt's goal is to return home alone at PLOF, however, pt is currently x2 assist. See SW assessment for further PLOF and barriers to DC. SW will continue to follow for DC planning assistance. NESHA DayW
[2024-02-16] MEDS: Rivaroxaban 20 MG Tablet PO (17:15)
[2024-02-16] MEDS: Baclofen 10 MG Tablet PO (21:58)
[2024-02-16 22:00] VITALS: PULSE 103; RESP 16; O2SAT 95
[2024-02-16] MEDS: Temazepam 15 MG Capsule PO (22:00)
[2024-02-17] MEDS: SILDENAFIL CITRATE 20 MG TABLET PO ×2 (05:58→16:26)
[2024-02-17] MEDS: morphine SR 15 MG Tablet PO ×3 (05:58→21:05)
[2024-02-17] MEDS: Levothyroxine 50 MCG Tablet PO (05:58)
[2024-02-17 09:00] VITALS: BP 96/35; PULSE 118; RESP 18; O2SAT 96
--- NOTE | 2024-02-17 09:02 | EKG12_ITS ---
Test Reason : CP Blood Pressure : / mmHG Vent. Rate : 114 BPM Atrial Rate : 114 BPM P-R Int : 146 ms QRS Dur : 082 ms QT Int : 294 ms P-R-T Axes : 055 040 081 degrees QTc Int : 405 ms Sinus tachycardia Nonspecific ST and T wave abnormality Abnormal ECG Reconfirmed by Dewayne Perrin ([id number]), video effects editor ZULEMA BRISENO ([id number]) on 02/19/2024 9:35:28 AM Referred By: ELIZABETH Confirmed By:Dewayne Perrin
--- NOTE | 2024-02-17 09:06 | NURSING ---
IN TO TAKE VITALS AND GIVE MEDS AT 9AM. PT STATED SHE FELT LIKE A HEAVINESS AND LIKE SOME ONE WAS SITTING ON HER CHEST AND FEELING OFF. VITALS DONE,BP 96/35, HR RATE 118,OXYGEN 96% ON 3 L. REPORTED TO RN.
[2024-02-17] MEDS: Cholecalciferol (VIT D3) 25 MCG TABLET (1,000 UNITS) PO (09:13)
[2024-02-17] MEDS: predniSONE 20 MG Tablet PO ×2 (09:13→16:26)
[2024-02-17] MEDS: Doxycycline 100 MG CAPSULE PO ×2 (09:13→21:07)
[2024-02-17] MEDS: Midodrine HCl 5 MG Tablet PO ×2 (09:14→16:27)
[2024-02-17] MEDS: Cefdinir 300 MG Capsule PO ×2 (09:14→21:07)
[2024-02-17] MEDS: Diphenoxylate/Atrop 1 Tablet 5 TABLET PO (09:17)
[2024-02-17] MEDS: Ammonium Lactate 225 gm Bottle 1 APPLIC TOPICAL (09:22)
[2024-02-17 09:31] VITALS: BP 88/40
--- NOTE | 2024-02-17 09:50 | NURSING ---
pt off unit to ER for evaluation via bed for c/o chest heaviness, tachycardia 118. low BP 88/40. per Dr Brand order. EKG revealed ST 114BPM nonspecific ST & T wave abnormality.
--- NOTE | 2024-02-17 15:07 | NURSING ---
Order for type and cross placed. Updated lab that resident still in ER, will let them know when she's back to unit. Called infusion center, they can transfuse tomorrow (02/18/24) at 0815.
--- NOTE | 2024-02-17 15:55 | NURSING ---
Back to room from ER. Lab in room to draw blood.
[2024-02-17 16:00] VITALS: BP 115/99; PULSE 100; RESP 22; TEMP 36.8; O2SAT 99
[2024-02-17] MEDS: Rivaroxaban 20 MG Tablet PO (16:25)
[2024-02-17 16:38] VITALS: BP 131/65; PULSE 105; O2SAT 100
[2024-02-17 21:00] VITALS: PULSE 97; RESP 18; O2SAT 99
[2024-02-17] MEDS: Baclofen 10 MG Tablet PO (21:07)
[2024-02-17] MEDS: Temazepam 15 MG Capsule PO (21:11)
[2024-02-17 21:19] VITALS: BP 89/47; PULSE 97
[2024-02-18] MEDS: SILDENAFIL CITRATE 20 MG TABLET PO ×3 (05:44→21:52)
[2024-02-18] MEDS: morphine SR 15 MG Tablet PO ×3 (05:44→21:51)
[2024-02-18] MEDS: Levothyroxine 50 MCG Tablet PO (05:44)
[2024-02-18] MEDS: Diphenoxylate/Atrop 1 Tablet 5 TABLET PO (05:46)
[2024-02-18 05:49] VITALS: BP 124/55; PULSE 92
[2024-02-18] MEDS: Doxycycline 100 MG CAPSULE PO ×2 (07:46→21:50)
[2024-02-18] MEDS: Amiodarone 200 MG Tablet 100 MG PO (07:46)
[2024-02-18] MEDS: predniSONE 20 MG Tablet PO ×2 (07:46→17:13)
[2024-02-18] MEDS: Midodrine HCl 5 MG Tablet PO ×2 (07:47→12:01)
[2024-02-18] MEDS: Cefdinir 300 MG Capsule PO ×2 (07:47→21:51)
[2024-02-18] MEDS: Cholecalciferol (VIT D3) 25 MCG TABLET (1,000 UNITS) PO (07:48)
--- NOTE | 2024-02-18 14:55 | NURSING ---
Return from blood transfusion at this time. Tolerated well. H&H recheck schedule for tomorrow.
[2024-02-18 16:00] VITALS: PULSE 99; RESP 16; TEMP 36.7; O2SAT 99
[2024-02-18] MEDS: Rivaroxaban 20 MG Tablet PO (17:14)
[2024-02-18 21:30] VITALS: PULSE 100; RESP 16
[2024-02-18] MEDS: Baclofen 10 MG Tablet PO (21:51)
[2024-02-18] MEDS: Menthol/Lanolin/Calamine/Znox 113 GM Tube 1 APPLIC TOPICAL (21:52)
[2024-02-18] MEDS: Nystatin Powder 15gm Bottle 1 APPLIC TOPICAL (21:52)
[2024-02-18] MEDS: Temazepam 15 MG Capsule PO (21:54)
[2024-02-18 22:02] VITALS: BP 141/70; PULSE 100
[2024-02-19] MEDS: Diphenoxylate/Atrop 1 Tablet 5 TABLET PO (05:31)
[2024-02-19] MEDS: morphine SR 15 MG Tablet PO ×3 (05:31→21:48)
[2024-02-19] MEDS: Levothyroxine 50 MCG Tablet PO (05:31)
[2024-02-19] MEDS: SILDENAFIL CITRATE 20 MG TABLET PO ×3 (05:32→21:49)
[2024-02-19 05:40] VITALS: BP 141/74; PULSE 105
[2024-02-19 06:50] LABS: Digoxin Level 0.69 ng/mL (0.80-2.00)
[2024-02-19 06:52] VITALS: PULSE 105; RESP 17; O2SAT 95
[2024-02-19 07:01] VITALS: O2SAT 94
[2024-02-19] MEDS: Menthol/Lanolin/Calamine/Znox 113 GM Tube 1 APPLIC TOPICAL ×2 (08:04→21:50)
[2024-02-19] MEDS: Midodrine HCl 5 MG Tablet PO ×3 (08:04→17:07)
[2024-02-19] MEDS: predniSONE 20 MG Tablet PO ×2 (08:04→17:08)
[2024-02-19] MEDS: Amiodarone 200 MG Tablet 100 MG PO (08:04)
[2024-02-19] MEDS: Ammonium Lactate 225 gm Bottle 1 APPLIC TOPICAL (08:05)
[2024-02-19] MEDS: Doxycycline 100 MG CAPSULE PO ×2 (08:05→21:49)
[2024-02-19 08:06] VITALS: BP 124/62; PULSE 100
[2024-02-19] MEDS: Digoxin 125 MCG Tablet PO (08:06)
[2024-02-19] MEDS: Nystatin Powder 15gm Bottle 1 APPLIC TOPICAL ×2 (08:08→21:50)
[2024-02-19] MEDS: Cholecalciferol (VIT D3) 25 MCG TABLET (1,000 UNITS) PO (08:08)
[2024-02-19] MEDS: Cefdinir 300 MG Capsule PO ×2 (08:08→21:49)
--- NOTE | 2024-02-19 11:08 | NURSING ---
Moisture and excoriation inside labia. Per Dr. Gomez D/C argelia and apply calmoseptine to area.
--- NOTE | 2024-02-19 11:24 | PCM.PROGNOTE ---
Subjective Subjective Afebrile VSS -blood pressure since yesterday has ranged from 79/41 to 141/74. She is tachycardic with heart rates up to 114. She is currently taking midodrine 5 mg 3 times daily. Maintaining appropriate oxygen saturation on RA Oral intake - FOOD highly variable. Generally ranges from 25 to 74% since 02/14/2024. Prior to that was eating 75 to 100% of her meals. FLUIDS very poor She has gained 30 to 35 pounds over the past 2-1/2 months and the majority of this is fluid weight. Discussed with nursing - has had a pure wick catheter in 24 hours a day since being on TCU. Nursing tells me she is very excoriated. Reviewed the THERAPY notes Medication list reviewed. All recent lab from the EMR was reviewed. TSH was 0.889 on 02/10/2024. White blood cell count is elevated at 15.1 on 02/17/2024 but she is chronically on prednisone 20 mg twice daily. Hemoglobin on 925 was 7.7, down from 10.8 on 02/15/2024. Platelets are within normal limits. RDW is significantly increased. Sodium is 139 and the potassium is 4.3. The potassium on 02/15/2024 was elevated at 5.2. Serum bicarb is elevated at 35 and the BUN is 48 with a creatinine of 1.09. Albumin is low at 1.9. H&P reviewed. Admitted to TCU on 02/13 for generalized weakness and inability to care for herself. She had ARF with peak creat while on the acute side of the hospital. Baseline creatinine has ranged from 0.83-0.97 over the past 10 months. Tells me she was losing wt at home and had lost about 50lbs. She has long standing lymphedema of the BL LE's. She has lymphedema pumps but she was not able to use them prior to admission to the hospital because they were not large enough to fit her legs. She is eligible for new compression sleeves and the social science analyst is working on this. She received a lot of IV fluid in the hospital for ARF and has gained 30 lbs since 02/05/24. She has persistent non-pitting edema of the BL LE's due to lymphedema but now has pitting edema of the BL UE's and the skin is weeping. She has SARAHY and pulmonary HTN. Unable to tolerate CPAP. Sometimes wears oxygen when she is sleeping but, not always. She is on Viagra for control of pulmonary hypertension. She has been on very high-dose prednisone, 20 mg twice daily, for many years for Crohn's disease. She denies ever being on any steroid sparing medications for Crohn's. Has had 2 small bowel resections in the past. She has also had a right hemicolectomy in the past and suffers from short gut syndrome and takes Lomotil daily. She has multiple gallstones. She is on MS Contin 15 mg 3 times daily for chronic pain. Takes Restoril for chronic insomnia. Has been following with Dr. Redman over the past year for Crohn's and chronic liver disease. CAn not view the notes in the EMR so will request the office notes. Denies SOB at rest. Primary complaint is extreme fatigue and weakness. She is lightheaded when upright. Multiple hospital admissions since September of this year. Lives alone and still drives. Has a WW and uses a quad cane. Objective Data Objective Data Vital Signs: Vital Signs Temp Pulse Resp BP Pulse Ox O2 Del Method O2 Flow Rate 98.0 F 100 17 124/62 H 94 Room Air 3 02/18/24 16:00 02/19/24 08:06 02/19/24 06:52 02/19/24 08:06 02/19/24 07:01 02/19/24 07:01 02/19/24 10:07 Oxygen Flow Rate (L/min) 3 Oxygen Delivery Method Room Air Weight: 269 lb 3.2 oz Body Mass Index (BMI) 43.4 Intake & Output: Intake and Output for Last 24 Hours 02/17/24 02/18/24 02/19/24 23:59 23:59 23:59 Intake Total 600 / 600 360 / 360 240 / 240 Output Total 500 / 500 Balance 600 / 600 360 / 360 -260 / -260 Lab / Micro Data 02/19/24 13:20 02/16/24 05:05 Labs: Laboratory Results - last 24 hr 02/19/24 05:29: Digoxin 0.69 L Physical Exam Const alert and oriented x3 Constitutional Narrative: Lying in bed. Unable to move her LE's at all without assist. C/O pain when we lift her legs to move them. General Appearance: cooperative Orientation / Consciousness: Negative for confused Eyes PERRL and EOMs intact bilaterally Neck Neck Narrative: Brisk carotid upstroke with good pulse volume Resp normal respiratory effort and clear to auscultation bilaterally Resp Narrative: Diminished throughout. No conversational dyspnea and she is able to speak in complete sentences. Effort and Inspection: Negative for tachypneic GI GI Narrative: NT to palpation. BS's present and not hyperactive. Extremity Extremity Narrative: Severe lymphedema of the BL LE's with severe stasis dermatitis. No open wounds. There is purple discoloration of the RLE from the knee to the ankle. Some patchy discoloration of the LLE. Skin Wound Narrative: Has patchy erythema of the RUE with mild increased warmth to touch......she is on Doxycycline. She is immunosuppressed from chronic high dose steroid. WBC is elevated but, she is on 40 mg of Prednisone daily. Neuro CN's II-XII intact bilaterally Neuro Narrative: severe generalized weakness. Psych cooperative Psych Narrative: Making good eye contact when we are speaking. Pleasant and talkative. Assessment & Plan Assessment/Plan (1) Anasarca: (2) Lymphedema of lower extremity: (3) Hypogammaglobulinemia: (4) Obstructive sleep apnea: (5) Pulmonary hypertension: (6) Chronic steroid use: (7) Osteoporosis: QUALIFIERS: Osteoporosis type: age-related Presence of current pathological fracture: without current pathological fracture Qualified Code(s): M81.0 - Age-related osteoporosis without current pathological fracture (8) Crohns disease: QUALIFIERS: Gastrointestinal tract location: small intestine Digestive disease complication type: unspecified complication Qualified Code(s): K50.019 - Crohn's disease of small intestine with unspecified complications (9) Paroxysmal atrial fibrillation: (10) Anemia: QUALIFIERS: Anemia type: other cause Other causes of anemia: chronic disease, other Qualified Code(s): D63.8 - Anemia in other chronic diseases classified elsewhere (11) Hyperbilirubinemia: (12) Narcotic dependency, continuous: (13) Metabolic alkalosis: (14) B12 deficiency: (15) Chronic pain: (16) Cellulitis: PLAN: Plan 1. cortisol, BMP, CALI, iron studies, retic panel, mag, phos now 2. Hemoccult stool 3. DC PureWick catheter insert a Lambert catheter for accurate intake and output. 4. Lasix 80 mg IV x 1 5. B12 1000 mg subcu daily x 7 days 6. Venous blood gas - suspect the metabolic alkalosis is due to obesity hypoventilation and not to dehydration. 7. awaiting the results of repeat BMP and iron studies. 8. Needs lymphedema pumps that fit. 9. Obtain Dr. Redman's office notes. Any plan to try tx for Crohn's other than high dose steroids? 10. Daily weights and accurate intake and output Charges/Coding Visit Charges Inpatient E&M: [address] [facility] Subs L2
[2024-02-19] MEDS: 0.9 % NaCl (Sterile) Posiflush 10 mL IV ×2 (13:13→16:50)
[2024-02-19] MEDS: 0.9% Saline Lock 10 ML Syringe IV (13:46)
--- NOTE | 2024-02-19 13:46 | NURSING ---
Lambert catheter inserted per Dr. Gomez. Pt tolerated procedure well. UA sample sent to lab.
[2024-02-19 13:56] LABS: Hemoglobin 11.2 g/dL (12.0-15.0); Mean Corp Hgb Conc 31.1 g/dL (32-36); Mean Corpuscular Hgb 31.1 pg (27.0-32.0); Mean Platelet Vol. 9.6 fl (6.2-12.0); Platelet Count 360 K/mm3 (150-450); RBC Distribution Width CV 15.6 % (11.6-14.6); RBC Distribution Width SD 57.2 fl (35.1-43.9); Reticulocyte Count 3.87 % (0.5-1.5); White Blood Count 20.1 K/mm3 (4.4-11.0)
--- NOTE | 2024-02-19 13:57 | CASEMGMT ---
Social Work BIMS () and PHQ-9 (01/18) completed for MDS assessment. Pt is compromised medically and physically, contributing to her positive responses. Though pt is forward thinking and has an upbeat attitude. SW assisted pt in getting comfortable and set up with her lunch tray. Pt appreciative. Jesi Rendon, BULB FILLER CHICKEN PICKER
[2024-02-19 14:11] LABS: Vitamin B12 153 pg/mL (211-911)
[2024-02-19 16:00] VITALS: BP 104/74; PULSE 95; RESP 18; TEMP 36.3; O2SAT 99
[2024-02-19 16:42] LABS: Hematocrit 33.8 % (37-47); Hemoglobin 10.5 g/dL (12.0-15.0)
[2024-02-19] MEDS: Furosemide 100 MG/10 ML Vial 80 MG IV (16:50)
[2024-02-19] MEDS: Rivaroxaban 20 MG Tablet PO (17:08)
[2024-02-19 19:04] LABS: Phosphorus 2.3 mg/dL (2.5-4.9)
[2024-02-19 19:17] LABS: Anion Gap 5 (5-15); BUN 48 mg/dL (7-18); BUN/Creat Ratio 39.7 RATIO (10-20); Calcium,Total 8.8 mg/dL (8.5-10.1); Chloride 103 mmol/L (98-107); Creatinine, Serum 1.21 mg/dL (0.55-1.02); EST Glomerular Filtration Rate 47 mL/min (>60); Est Glom Filt Rate - Afr Amer 57 mL/min (>60); Estimated Creatinine Clearance 57.66 ml/min; Ferritin 116 ng/mL (8-252); Glucose 169 mg/dL (74-106); Iron 33 ug/dL (50-170); Iron Binding Capacity,Total 250 ug/dL (250-450); PERCENT IRON SATURATION 13.2 % (15.0-55.0); Potassium 4.8 mmol/L (3.5-5.1); Sodium Level 139 mmol/L (136-145)
[2024-02-19 19:48] LABS: Blood Gas Specimen Type VEN; O2 Delivery Device Cannula; SITE Not entered; VBG BASE EXCESS 6 mmol/L (-1.0-3.5); VBG Bicarbonate 32 mmol/L (22-26); VBG PO2 149 mmHg (25-40); VBG SO2 99 % (50-70); VBG TCO2 34 mmol/L (23-33); VBG pCO2 59.4 mmHg (41-51); VBG pH 7.34 (7.32-7.42)
[2024-02-19 20:43] LABS: Mucous, Urine 0 SEEN /hpf (<or=2+); Red Blood Cells-Urine 0 SEEN /hpf (0-5)
[2024-02-19 21:07] LABS: Color, Urine Amber (Yellow); Glucose, Dipstick Normal (Normal); Ketone-Dipstick 5 mg/dl (Negative); Leukocyte Esterase-Dipstick 100 /ul (Negative); Nitrite-Dipstick Negative (Negative); Occult Blood-Urine Negative /ul (Negative); Protein-Dipstick 30 mg/dl (Negative); Specific Gravity, Urine 1.025 (1.002-1.030); Urine Bilirubin Dipstick Negative (Negative); Urine Clarity Cloudy (Clear); Urine Urobilinogen Normal (Normal)
[2024-02-19 21:12] LABS: Bacteria RARE /hpf (None Seen); Squamous Epithelial Cells - UA 5-10 SEEN /hpf (5-10); White Blood Cells 5-10 SEEN /hpf (0-5); Yeast-Urine 2+ /hpf (None Seen)
[2024-02-19 21:46] VITALS: BP 141/72; PULSE 90
[2024-02-19] MEDS: Temazepam 15 MG Capsule PO (21:48)
[2024-02-19] MEDS: Baclofen 10 MG Tablet PO (21:49)
[2024-02-20] VITALS (7 sets, daily range): BP systolic 101–123; BP diastolic 60–74; PULSE 87–109; RESP 16–17; TEMP 36.5; O2SAT 92–94; BMI 44.7
[2024-02-20] MEDS: morphine SR 15 MG Tablet PO ×3 (06:20→21:55)
[2024-02-20] MEDS: Diphenoxylate/Atrop 1 Tablet 5 TABLET PO (06:20)
[2024-02-20] MEDS: Levothyroxine 50 MCG Tablet PO (06:21)
[2024-02-20] MEDS: SILDENAFIL CITRATE 20 MG TABLET PO ×3 (06:21→21:59)
[2024-02-20] MEDS: predniSONE 20 MG Tablet PO (11:01)
[2024-02-20] MEDS: Midodrine HCl 5 MG Tablet PO ×3 (11:01→21:57)
[2024-02-20] MEDS: Nystatin Powder 15gm Bottle 1 APPLIC TOPICAL ×2 (11:04→22:00)
[2024-02-20] MEDS: Menthol/Lanolin/Calamine/Znox 113 GM Tube 1 APPLIC TOPICAL ×2 (11:05→22:00)
[2024-02-20] MEDS: Doxycycline 100 MG CAPSULE PO ×2 (11:05→21:58)
[2024-02-20] MEDS: Amiodarone 200 MG Tablet 100 MG PO (11:06)
[2024-02-20] MEDS: Digoxin 125 MCG Tablet PO (11:08)
[2024-02-20] MEDS: Cefdinir 300 MG Capsule PO ×2 (11:09→21:59)
[2024-02-20] MEDS: Cholecalciferol (VIT D3) 25 MCG TABLET (1,000 UNITS) PO (11:09)
[2024-02-20] MEDS: Ferrous Sulfate 325 MG Tablet PO (11:17)
[2024-02-20] MEDS: Cyanocobalamin (B12) 1,000 MCG/ML Vial 1000 MCG SC (11:25)
[2024-02-20] MEDS: Furosemide 100 MG/10 ML Vial 80 MG IV (11:26)
[2024-02-20] MEDS: 0.9% Saline Lock 10 ML Syringe IV (11:28)
[2024-02-20] MEDS: Na Biphos/Potassium Phosphate PACKET 1 PACKET PO ×2 (13:20→22:02)
[2024-02-20] MEDS: Rivaroxaban 20 MG Tablet PO (16:35)
[2024-02-20] MEDS: predniSONE 5 MG Tablet 17.5 MG PO (17:34)
[2024-02-20] MEDS: Temazepam 15 MG Capsule PO (21:55)
[2024-02-20] MEDS: Baclofen 10 MG Tablet PO (21:59)
[2024-02-21] VITALS (8 sets, daily range): BP systolic 125–150; BP diastolic 55–72; PULSE 91–99; RESP 16–18; TEMP 36.5; O2SAT 88–97; BMI 44.3; BMI 44.6
[2024-02-21] MEDS: Diphenoxylate/Atrop 1 Tablet 5 TABLET PO (05:43)
[2024-02-21] MEDS: morphine SR 15 MG Tablet PO ×3 (05:44→21:52)
[2024-02-21] MEDS: SILDENAFIL CITRATE 20 MG TABLET PO ×3 (05:44→21:55)
[2024-02-21] MEDS: Na Biphos/Potassium Phosphate PACKET 1 PACKET PO ×3 (05:44→21:57)
[2024-02-21] MEDS: Levothyroxine 50 MCG Tablet PO (05:45)
[2024-02-21 07:10] LABS: Anion Gap 5 (5-15); BUN 59 mg/dL (7-18); Calcium,Total 8.2 mg/dL (8.5-10.1); Chloride 100 mmol/L (98-107); Creatinine, Serum 1.23 mg/dL (0.55-1.02); EST Glomerular Filtration Rate 46 mL/min (>60); Est Glom Filt Rate - Afr Amer 56 mL/min (>60); Estimated Creatinine Clearance 57.37 ml/min; Glucose 123 mg/dL (74-106); Potassium 4.9 mmol/L (3.5-5.1); Sodium Level 139 mmol/L (136-145)
[2024-02-21] MEDS: Midodrine HCl 5 MG Tablet PO ×3 (08:11→16:55)
[2024-02-21] MEDS: Menthol/Lanolin/Calamine/Znox 113 GM Tube 1 APPLIC TOPICAL ×2 (08:11→21:56)
[2024-02-21] MEDS: Amiodarone 200 MG Tablet 100 MG PO (08:12)
[2024-02-21] MEDS: Doxycycline 100 MG CAPSULE PO ×2 (08:13→21:54)
[2024-02-21] MEDS: Venlafaxine XR 37.5 MG Capsule PO (08:14)
[2024-02-21] MEDS: Digoxin 125 MCG Tablet PO (08:15)
[2024-02-21] MEDS: Nystatin Powder 15gm Bottle 1 APPLIC TOPICAL ×2 (08:16→21:57)
[2024-02-21] MEDS: Cefdinir 300 MG Capsule PO ×2 (08:16→21:54)
[2024-02-21] MEDS: predniSONE 20 MG Tablet PO (08:17)
[2024-02-21] MEDS: Cholecalciferol (VIT D3) 25 MCG TABLET (1,000 UNITS) PO (08:17)
[2024-02-21] MEDS: Cyanocobalamin (B12) 1,000 MCG/ML Vial 1000 MCG SC (08:18)
[2024-02-21] MEDS: Furosemide 100 MG/10 ML Vial 80 MG IV (10:48)
[2024-02-21] MEDS: 0.9% Saline Lock 10 ML Syringe IV ×2 (10:48→21:53)
[2024-02-21] MEDS: Ferrous Sulfate 325 MG Tablet PO (12:45)
[2024-02-21] MEDS: Rivaroxaban 20 MG Tablet PO (16:54)
[2024-02-21] MEDS: predniSONE 5 MG Tablet 17.5 MG PO (16:54)
[2024-02-21] MEDS: Temazepam 15 MG Capsule PO (21:53)
[2024-02-21] MEDS: Baclofen 10 MG Tablet PO (21:55)
[2024-02-22] VITALS (7 sets, daily range): BP systolic 102–143; BP diastolic 53–81; PULSE 87–98; RESP 16; TEMP 36.3; O2SAT 91–95; BMI 44.6
[2024-02-22] MEDS: Na Biphos/Potassium Phosphate PACKET 1 PACKET PO ×3 (05:09→21:57)
[2024-02-22] MEDS: morphine SR 15 MG Tablet PO ×3 (05:11→21:56)
[2024-02-22] MEDS: Levothyroxine 50 MCG Tablet PO (05:11)
[2024-02-22] MEDS: Diphenoxylate/Atrop 1 Tablet 5 TABLET PO (05:11)
[2024-02-22] MEDS: SILDENAFIL CITRATE 20 MG TABLET PO ×3 (05:11→21:54)
[2024-02-22 05:50] LABS: Absolute Lymphocyte Count 0.59 X10^3/uL (0.83-4.51); Absolute Neutrophil Count 13.7 X10^3/uL (2.0-7.7); Basophil# 0.03 X10^3/uL; Basophil% 0.2 % (0-1); Hematocrit 33.6 % (37-47); Hemoglobin 10.5 g/dL (12.0-15.0); Lymphocyte # 0.59 X10^3/ul (0.83-4.51); Lymphocyte % 3.7 % (19-41); Mean Corp Hgb Conc 31.3 g/dL (32-36); Mean Corpuscular Hgb 31.8 pg (27.0-32.0); Mean Corpuscular Volume 101.8 fL (81-99); Mean Platelet Vol. 9.4 fl (6.2-12.0); Monocyte# 0.98 X10^3/uL; Monocyte% 6.1 % (0-10); NRBC Flagged by Analyzer 0 % (0-5); Neutrophil # 13.69 X10^3/uL (2.7-7.7); Neutrophil % 85.9 % (47-70); POSITIVE DIFFERENTIAL YES; Platelet Count 353 K/mm3 (150-450); RBC Distribution Width CV 15.3 % (11.6-14.6); RBC Distribution Width SD 57.2 fl (35.1-43.9); White Blood Count 15.9 K/mm3 (4.4-11.0)
[2024-02-22 06:30] LABS: Anion Gap 3 (5-15); BUN 61 mg/dL (7-18); BUN/Creat Ratio 54.5 RATIO (10-20); Calcium,Total 8.5 mg/dL (8.5-10.1); Chloride 101 mmol/L (98-107); Creatinine, Serum 1.12 mg/dL (0.55-1.02); EST Glomerular Filtration Rate 51 mL/min (>60); Est Glom Filt Rate - Afr Amer 62 mL/min (>60); Estimated Creatinine Clearance 63.25 ml/min; Glucose 120 mg/dL (74-106); Potassium 4.9 mmol/L (3.5-5.1); Sodium Level 137 mmol/L (136-145)
[2024-02-22] MEDS: Amiodarone 200 MG Tablet 100 MG PO (08:20)
[2024-02-22] MEDS: Doxycycline 100 MG CAPSULE PO (08:21)
[2024-02-22] MEDS: Digoxin 125 MCG Tablet PO (08:21)
[2024-02-22] MEDS: Venlafaxine XR 37.5 MG Capsule PO (08:21)
[2024-02-22] MEDS: Cefdinir 300 MG Capsule PO (08:22)
[2024-02-22] MEDS: predniSONE 20 MG Tablet PO (08:22)
[2024-02-22] MEDS: Cholecalciferol (VIT D3) 25 MCG TABLET (1,000 UNITS) PO (08:23)
[2024-02-22] MEDS: Midodrine HCl 5 MG Tablet PO ×3 (08:23→17:53)
[2024-02-22] MEDS: Nystatin Powder 15gm Bottle 1 APPLIC TOPICAL ×2 (08:23→21:55)
[2024-02-22] MEDS: Menthol/Lanolin/Calamine/Znox 113 GM Tube 1 APPLIC TOPICAL ×2 (08:24→21:55)
[2024-02-22] MEDS: Petrolatum 33% Tube 1 APPLIC TOPICAL (08:25)
[2024-02-22] MEDS: Ammonium Lactate 225 gm Bottle 1 APPLIC TOPICAL (08:26)
[2024-02-22] MEDS: Tuberculin,Purif.prot.deriv. 50 TU/ML Vial 0.1 ML ID (08:42)
[2024-02-22] MEDS: Cyanocobalamin (B12) 1,000 MCG/ML Vial 1000 MCG SC (08:42)
[2024-02-22] MEDS: Furosemide 100 MG/10 ML Vial 80 MG IV (08:43)
--- NOTE | 2024-02-22 11:58 | NURSING ---
Drug Safety Coordinator Note; MDS for 02/21/2024 Complete
[2024-02-22] MEDS: Ferrous Sulfate 325 MG Tablet PO (13:23)
--- NOTE | 2024-02-22 14:33 | NURSING ---
Updated that another resident and staff members tested positive for covid. She does not want family updated.
[2024-02-22 16:09] LABS: Adrenocorticotropic Hormone 5.4 pg/mL (7.2-63.3)
[2024-02-22] MEDS: Rivaroxaban 20 MG Tablet PO (17:53)
[2024-02-22] MEDS: predniSONE 5 MG Tablet 17.5 MG PO (17:54)
[2024-02-22] MEDS: 0.9% Saline Lock 10 ML Syringe IV (21:46)
[2024-02-22] MEDS: Baclofen 10 MG Tablet PO (21:54)
[2024-02-22] MEDS: Temazepam 15 MG Capsule PO (21:54)
[2024-02-23 06:00] VITALS: BP 168/83; PULSE 97; RESP 16
[2024-02-23] MEDS: SILDENAFIL CITRATE 20 MG TABLET PO ×3 (06:07→22:19)
[2024-02-23] MEDS: morphine SR 15 MG Tablet PO ×3 (06:07→22:18)
[2024-02-23] MEDS: Na Biphos/Potassium Phosphate PACKET 1 PACKET PO (06:07)
[2024-02-23] MEDS: Levothyroxine 50 MCG Tablet PO (06:08)
[2024-02-23] MEDS: Diphenoxylate/Atrop 1 Tablet 5 TABLET PO (06:08)
--- NOTE | 2024-02-23 07:03 | NURSING ---
SUPERVISORY INVESTIGATIVE SPECIALIST reports open area to RLE, patient assessed, severe lymphedema to BLE, fluid filled purple discolored area with skin tear, patient states I don't know how that happened. Denies trauma to site. Dressing applied per order, wound nurse consulted. No distress observed or reported. Call light in reach. Denies further requests.
[2024-02-23] MEDS: Menthol/Lanolin/Calamine/Znox 113 GM Tube 1 APPLIC TOPICAL (08:12)
[2024-02-23] MEDS: Midodrine HCl 5 MG Tablet PO ×3 (08:13→17:20)
[2024-02-23] MEDS: Amiodarone 200 MG Tablet 100 MG PO (08:13)
[2024-02-23 08:14] VITALS: BP 130/63; PULSE 88
[2024-02-23] MEDS: Venlafaxine XR 37.5 MG Capsule PO (08:14)
[2024-02-23] MEDS: Digoxin 125 MCG Tablet PO (08:14)
[2024-02-23] MEDS: predniSONE 20 MG Tablet PO (08:15)
[2024-02-23] MEDS: Cholecalciferol (VIT D3) 25 MCG TABLET (1,000 UNITS) PO (08:15)
[2024-02-23] MEDS: Nystatin Powder 15gm Bottle 1 APPLIC TOPICAL (08:15)
[2024-02-23] MEDS: Cyanocobalamin (B12) 1,000 MCG/ML Vial 1000 MCG SC (08:16)
[2024-02-23 08:27] VITALS: BP 130/63; PULSE 88; O2SAT 92
[2024-02-23] MEDS: Furosemide 100 MG/10 ML Vial 80 MG IV (10:44)
[2024-02-23] MEDS: 0.9 % NaCl (Sterile) Posiflush 10 mL IV (10:45)
[2024-02-23 13:11] VITALS: O2SAT 94
[2024-02-23] MEDS: Ferrous Sulfate 325 MG Tablet PO (13:14)
[2024-02-23 13:22] VITALS: BP 132/52; PULSE 101; RESP 16; TEMP 36.6; O2SAT 92
[2024-02-23 14:00] VITALS: BMI 41.8
--- NOTE | 2024-02-23 14:52 | WOUNDNOTE ---
wound photo: right posterior lower leg
[2024-02-23 15:58] VITALS: BMI 41.8
--- NOTE | 2024-02-23 16:05 | NURSING ---
KIRKRN/WOUND NURSE IN TO SEE PT AND DRESSING CHANGE PER WOUND CONSULT.
[2024-02-23] MEDS: Rivaroxaban 20 MG Tablet PO (17:20)
[2024-02-23] MEDS: predniSONE 5 MG Tablet 17.5 MG PO (17:20)
[2024-02-23 22:00] VITALS: PULSE 89; RESP 16; O2SAT 98
--- NOTE | 2024-02-23 22:11 | NURSING ---
POA/pt. rep (Gabbie Thompson) calls requesting update, update provided, notified of new open area to RLE with wound nurse consulted this AM. Gabbie expresses thanks for update with no concerns voiced, states plans to visit patient on
[2024-02-23] MEDS: Temazepam 15 MG Capsule PO (22:18)
[2024-02-23] MEDS: 0.9% Saline Lock 10 ML Syringe IV (22:18)
[2024-02-23] MEDS: Baclofen 10 MG Tablet PO (22:19)
[2024-02-24 06:00] VITALS: BMI 41.3
[2024-02-24] MEDS: Diphenoxylate/Atrop 1 Tablet 5 TABLET PO (06:06)
[2024-02-24] MEDS: Levothyroxine 50 MCG Tablet PO (06:06)
[2024-02-24] MEDS: morphine SR 15 MG Tablet PO ×3 (06:06→22:24)
[2024-02-24] MEDS: SILDENAFIL CITRATE 20 MG TABLET PO ×3 (06:06→22:33)
[2024-02-24 06:12] VITALS: BP 127/53; PULSE 88; RESP 18; O2SAT 93
[2024-02-24 08:49] VITALS: BP 114/68; PULSE 107; RESP 16; TEMP 36.6; O2SAT 93
[2024-02-24] MEDS: Menthol/Lanolin/Calamine/Znox 113 GM Tube 1 APPLIC TOPICAL ×2 (08:52→22:34)
[2024-02-24] MEDS: Midodrine HCl 5 MG Tablet PO ×3 (08:52→17:13)
[2024-02-24] MEDS: Amiodarone 200 MG Tablet 100 MG PO (08:53)
[2024-02-24] MEDS: Petrolatum 33% Tube 1 APPLIC TOPICAL (08:54)
[2024-02-24] MEDS: Venlafaxine XR 37.5 MG Capsule PO (08:54)
[2024-02-24 08:55] VITALS: PULSE 107
[2024-02-24] MEDS: Furosemide 100 MG/10 ML Vial 80 MG IV (08:55)
[2024-02-24] MEDS: Digoxin 125 MCG Tablet PO (08:55)
[2024-02-24] MEDS: Ammonium Lactate 225 gm Bottle 1 APPLIC TOPICAL (08:55)
[2024-02-24] MEDS: Nystatin Powder 15gm Bottle 1 APPLIC TOPICAL ×2 (08:56→22:33)
[2024-02-24] MEDS: predniSONE 20 MG Tablet PO (08:56)
[2024-02-24] MEDS: Cyanocobalamin (B12) 1,000 MCG/ML Vial 1000 MCG SC (08:56)
[2024-02-24] MEDS: Cholecalciferol (VIT D3) 25 MCG TABLET (1,000 UNITS) PO (08:56)
[2024-02-24] MEDS: Ferrous Sulfate 325 MG Tablet PO (13:36)
[2024-02-24 17:11] VITALS: BMI 41.4
[2024-02-24] MEDS: Rivaroxaban 20 MG Tablet PO (17:13)
[2024-02-24] MEDS: predniSONE 5 MG Tablet 17.5 MG PO (17:13)
[2024-02-24 22:05] VITALS: RESP 16; O2SAT 95
[2024-02-24] MEDS: Temazepam 15 MG Capsule PO (22:24)
[2024-02-24] MEDS: Baclofen 10 MG Tablet PO (22:33)
[2024-02-24 22:35] VITALS: BP 120/66; PULSE 98
[2024-02-25] MEDS: morphine SR 15 MG Tablet PO ×3 (05:22→22:34)
[2024-02-25] MEDS: Diphenoxylate/Atrop 1 Tablet 5 TABLET PO (05:22)
[2024-02-25] MEDS: SILDENAFIL CITRATE 20 MG TABLET PO ×3 (05:23→22:37)
[2024-02-25] MEDS: Levothyroxine 50 MCG Tablet PO (05:23)
[2024-02-25 05:35] VITALS: BP 129/53; PULSE 89
[2024-02-25 06:00] VITALS: BMI 40.9
[2024-02-25] MEDS: 0.9 % NaCl (Sterile) Posiflush 10 mL IV (07:56)
[2024-02-25 08:43] VITALS: BP 107/54; PULSE 78; RESP 16; TEMP 36.2; O2SAT 98
[2024-02-25] MEDS: Senna/Docusate Sodium 1 Tablet PO ×2 (08:44→22:37)
[2024-02-25] MEDS: Midodrine HCl 5 MG Tablet PO ×3 (08:44→17:23)
[2024-02-25] MEDS: predniSONE 20 MG Tablet PO (08:44)
[2024-02-25] MEDS: Venlafaxine XR 37.5 MG Capsule PO (08:44)
[2024-02-25 08:45] VITALS: BP 107/54; PULSE 85
[2024-02-25] MEDS: Digoxin 125 MCG Tablet PO (08:45)
[2024-02-25] MEDS: Cholecalciferol (VIT D3) 25 MCG TABLET (1,000 UNITS) PO (08:45)
[2024-02-25] MEDS: Amiodarone 200 MG Tablet 100 MG PO (08:45)
[2024-02-25] MEDS: Petrolatum 33% Tube 1 APPLIC TOPICAL (08:46)
[2024-02-25] MEDS: Menthol/Lanolin/Calamine/Znox 113 GM Tube 1 APPLIC TOPICAL (08:46)
[2024-02-25] MEDS: Cyanocobalamin (B12) 1,000 MCG/ML Vial 1000 MCG SC (08:47)
[2024-02-25] MEDS: Ammonium Lactate 225 gm Bottle 1 APPLIC TOPICAL (08:47)
[2024-02-25] MEDS: Nystatin Powder 15gm Bottle 1 APPLIC TOPICAL (08:47)
--- NOTE | 2024-02-25 11:36 | WOUNDNOTE ---
Nursing had noted some redness to back last week. this nurse did assess area. the redness does mychal at this time. a foam dressing had been applied per nursing. can apply for protection as needed. will monitor. patient does not move well at all. pt was encouraged to try to allow repositioning often and keep pressure points offloaded as much as possible. will reassess back when patient allows. pt did not want to be repositioned at this time. did allow this nurse to change the RLE dressing. tolerated fairly well. see documentation.
[2024-02-25 13:11] VITALS: BP 123/78; PULSE 106
[2024-02-25] MEDS: Ferrous Sulfate 325 MG Tablet PO (13:13)
--- NOTE | 2024-02-25 13:43 | MDS.RN ---
Information for the MDS was obtained from review of the clinical record, interview of resident, staff, and direct observation of resident?s care.
[2024-02-25] MEDS: Rivaroxaban 20 MG Tablet PO (17:23)
[2024-02-25] MEDS: predniSONE 5 MG Tablet 17.5 MG PO (17:23)
[2024-02-25 22:00] VITALS: PULSE 84; RESP 18; O2SAT 99
[2024-02-25 22:25] VITALS: BP 129/72; PULSE 84; RESP 16
[2024-02-25] MEDS: 0.9% Saline Lock 10 ML Syringe IV (22:35)
[2024-02-25] MEDS: Temazepam 15 MG Capsule PO (22:35)
[2024-02-25] MEDS: Baclofen 10 MG Tablet PO (22:37)
[2024-02-26 05:30] VITALS: BP 131/64; PULSE 91
[2024-02-26] MEDS: SILDENAFIL CITRATE 20 MG TABLET PO ×3 (05:36→22:54)
[2024-02-26] MEDS: Levothyroxine 50 MCG Tablet PO (05:36)
[2024-02-26] MEDS: Diphenoxylate/Atrop 1 Tablet 5 TABLET PO (05:36)
[2024-02-26] MEDS: morphine SR 15 MG Tablet PO ×3 (05:36→22:52)
--- NOTE | 2024-02-26 06:00 | NURSING ---
Intermittent confusion observed, patient reports decline in ability to perform ADLS, states I can't stand anymore. Written communication left for regarding staff report of patient sleeping frequently during the day, requesting restoril QHS, decline in mobility and intermittent confusion.
[2024-02-26] MEDS: Menthol/Lanolin/Calamine/Znox 113 GM Tube 1 APPLIC TOPICAL (08:47)
[2024-02-26] MEDS: Nystatin Powder 15gm Bottle 1 APPLIC TOPICAL (08:49)
[2024-02-26] MEDS: Midodrine HCl 5 MG Tablet PO ×3 (08:52→17:26)
[2024-02-26] MEDS: Amiodarone 200 MG Tablet 100 MG PO (08:52)
[2024-02-26 08:53] VITALS: BP 127/68; PULSE 83
[2024-02-26] MEDS: Venlafaxine XR 37.5 MG Capsule PO (08:53)
[2024-02-26] MEDS: Digoxin 125 MCG Tablet PO (08:53)
[2024-02-26] MEDS: predniSONE 20 MG Tablet PO (08:54)
[2024-02-26] MEDS: Senna/Docusate Sodium 1 Tablet PO ×2 (08:54→22:54)
[2024-02-26] MEDS: Cholecalciferol (VIT D3) 25 MCG TABLET (1,000 UNITS) PO (08:54)
[2024-02-26] MEDS: Cyanocobalamin (B12) 1,000 MCG/ML Vial 1000 MCG SC (08:55)
[2024-02-26 09:06] VITALS: BP 127/68; PULSE 83; O2SAT 91
[2024-02-26] MEDS: Ferrous Sulfate 325 MG Tablet PO (13:30)
[2024-02-26] MEDS: Pneumococcal Vaccine 20 Valent 0.5 ML Syringe IM (13:40)
--- NOTE | 2024-02-26 14:06 | NURSING ---
PNEUMONIA SHOT GIVEN IN RT DELT. PT TOLERATED WELL. WILL CONTINUE TO MONITOR.
--- NOTE | 2024-02-26 14:35 | CASEMGMT ---
Social Work IDT met with patient and friend, Carmella, for care plan meeting. Discussed patient's progress in PT/OT/SN. Educated to Medicare benefit. Provided pt with written explanation of insurance coverage and copay coverage. SW educated to needing to meet skilled criteria for Medicare to cover ongoing services. Explained that if there are not major improvements, pt may be cut from skilled services. Broached conversation of pt not being able to return home at this time and discussed SNF. Educated to OOP cost for room and board and billing part B for therapies. Explained pt can received skilled services again, once criteria is met at another SNF, but currently, the recommendation is a SNF for the DC plan. Pt states she is unable to pay OOP. SW offered to apply for Medicaid to determine eligibility. Pt agreed. SW offered list of SNF providers in [facility] including quality and resource data via CarePort Guide. Pt agreed. SW returned with printed list of SNFs and educated to referral to [facility]. Pt and friend appreciative. SW will continue to follow. Referral sent to [facility] via email. NESHA DayW
[2024-02-26 14:50] VITALS: BP 104/62; PULSE 89; RESP 20; TEMP 36.2; O2SAT 99
[2024-02-26] MEDS: predniSONE 5 MG Tablet 17.5 MG PO (17:27)
[2024-02-26] MEDS: Rivaroxaban 20 MG Tablet PO (17:27)
[2024-02-26 17:30] VITALS: PULSE 89; RESP 16; O2SAT 99
[2024-02-26] MEDS: Temazepam 15 MG Capsule PO (22:52)
[2024-02-26] MEDS: 0.9% Saline Lock 10 ML Syringe IV (22:53)
[2024-02-26] MEDS: Baclofen 10 MG Tablet PO (22:55)
[2024-02-26 23:05] VITALS: BP 131/82; PULSE 94
[2024-02-27] MEDS: Levothyroxine 50 MCG Tablet PO (05:57)
[2024-02-27] MEDS: Diphenoxylate/Atrop 1 Tablet 5 TABLET PO (05:57)
[2024-02-27] MEDS: SILDENAFIL CITRATE 20 MG TABLET PO ×3 (05:57→23:30)
[2024-02-27] MEDS: morphine SR 15 MG Tablet PO ×3 (05:57→23:30)
[2024-02-27 05:59] VITALS: BP 126/59; PULSE 89
[2024-02-27 06:36] LABS: Bedside Glucose 110 mg/dL (74-106)
[2024-02-27] MEDS: Midodrine HCl 5 MG Tablet PO ×3 (08:42→18:12)
[2024-02-27] MEDS: Amiodarone 200 MG Tablet 100 MG PO (08:43)
[2024-02-27] MEDS: Menthol/Lanolin/Calamine/Znox 113 GM Tube 1 APPLIC TOPICAL ×2 (08:43→23:32)
[2024-02-27] MEDS: Ammonium Lactate 225 gm Bottle 1 APPLIC TOPICAL (08:44)
[2024-02-27] MEDS: Petrolatum 33% Tube 1 APPLIC TOPICAL (08:45)
[2024-02-27] MEDS: Venlafaxine XR 37.5 MG Capsule PO (08:46)
[2024-02-27] MEDS: Nystatin Powder 15gm Bottle 1 APPLIC TOPICAL ×2 (08:46→23:32)
[2024-02-27] MEDS: Cholecalciferol (VIT D3) 25 MCG TABLET (1,000 UNITS) PO (08:50)
[2024-02-27] MEDS: predniSONE 20 MG Tablet PO (08:50)
[2024-02-27 08:51] VITALS: PULSE 89
[2024-02-27] MEDS: Digoxin 125 MCG Tablet PO (08:51)
[2024-02-27] MEDS: Senna/Docusate Sodium 1 Tablet PO ×2 (08:56→23:35)
[2024-02-27] MEDS: Ferrous Sulfate 325 MG Tablet PO (13:10)
[2024-02-27 16:00] VITALS: BP 130/68; PULSE 88; RESP 14; TEMP 21; O2SAT 98
[2024-02-27] MEDS: predniSONE 5 MG Tablet 17.5 MG PO (18:12)
[2024-02-27] MEDS: Rivaroxaban 20 MG Tablet PO (18:12)
[2024-02-27 23:28] VITALS: BP 126/97; PULSE 91; O2SAT 96
[2024-02-27] MEDS: Baclofen 10 MG Tablet PO (23:31)
[2024-02-28 06:00] VITALS: BMI 41.5
[2024-02-28] MEDS: Levothyroxine 50 MCG Tablet PO (06:43)
[2024-02-28] MEDS: SILDENAFIL CITRATE 20 MG TABLET PO ×3 (06:44→22:56)
[2024-02-28] MEDS: morphine SR 15 MG Tablet PO ×3 (06:44→22:58)
[2024-02-28] MEDS: Diphenoxylate/Atrop 1 Tablet 5 TABLET PO (06:49)
[2024-02-28 06:50] VITALS: BP 134/69; PULSE 89
[2024-02-28] MEDS: Midodrine HCl 5 MG Tablet PO ×3 (08:17→17:07)
[2024-02-28] MEDS: Menthol/Lanolin/Calamine/Znox 113 GM Tube 1 APPLIC TOPICAL ×2 (08:17→22:54)
[2024-02-28] MEDS: Amiodarone 200 MG Tablet 100 MG PO (08:18)
[2024-02-28] MEDS: Venlafaxine XR 37.5 MG Capsule PO (08:19)
[2024-02-28 08:23] VITALS: BP 105/87; PULSE 95
[2024-02-28] MEDS: Digoxin 125 MCG Tablet PO (08:23)
[2024-02-28] MEDS: Nystatin Powder 15gm Bottle 1 APPLIC TOPICAL ×2 (08:29→22:56)
[2024-02-28] MEDS: predniSONE 20 MG Tablet PO (08:34)
[2024-02-28] MEDS: Cholecalciferol (VIT D3) 25 MCG TABLET (1,000 UNITS) PO (08:35)
[2024-02-28] MEDS: Senna/Docusate Sodium 1 Tablet PO ×2 (08:35→22:57)
[2024-02-28 10:00] VITALS: RESP 17; O2SAT 98
[2024-02-28] MEDS: Ferrous Sulfate 325 MG Tablet PO (12:43)
[2024-02-28 15:59] VITALS: BP 116/51; PULSE 96; RESP 19; TEMP 36.9; O2SAT 95
[2024-02-28] MEDS: predniSONE 5 MG Tablet 17.5 MG PO (17:07)
[2024-02-28] MEDS: Rivaroxaban 20 MG Tablet PO (17:08)
--- NOTE | 2024-02-28 20:39 | NURSING ---
Spoke w/ Dr. Brand via phone re: improvement of redness to BUE. New order received and read back to dc warm compresses to BUE.
[2024-02-28 22:45] VITALS: BP 156/90; PULSE 99; O2SAT 95
[2024-02-28] MEDS: Ammonium Lactate 225 gm Bottle 1 APPLIC TOPICAL (22:53)
[2024-02-28] MEDS: Petrolatum 33% Tube 1 APPLIC TOPICAL (22:55)
[2024-02-28] MEDS: Baclofen 10 MG Tablet PO (22:57)
[2024-02-29] VITALS (7 sets, daily range): BP systolic 118–184; BP diastolic 58–88; PULSE 65–102; RESP 16; TEMP 36.9; O2SAT 93–97; BMI 41.5
[2024-02-29 06:02] LABS: Absolute Lymphocyte Count 0.63 X10^3/uL (0.83-4.51); Absolute Neutrophil Count 12.2 X10^3/uL (2.0-7.7); Basophil# 0.01 X10^3/uL; Basophil% 0.1 % (0-1); Eosinophil# 0.02 X10^3/uL; Eosinophils% 0.1 % (0-5); Hematocrit 33.2 % (37-47); Hemoglobin 10.4 g/dL (12.0-15.0); Lymphocyte # 0.63 X10^3/ul (0.83-4.51); Lymphocyte % 4.3 % (19-41); Mean Corp Hgb Conc 31.3 g/dL (32-36); Mean Corpuscular Hgb 31.1 pg (27.0-32.0); Mean Corpuscular Volume 99.4 fL (81-99); Mean Platelet Vol. 9.7 fl (6.2-12.0); Monocyte# 1.15 X10^3/uL; Monocyte% 7.8 % (0-10); NRBC Flagged by Analyzer 0 % (0-5); Neutrophil # 12.24 X10^3/uL (2.7-7.7); Neutrophil % 83.5 % (47-70); Platelet Count 284 K/mm3 (150-450); RBC Distribution Width CV 14.6 % (11.6-14.6); RBC Distribution Width SD 53.8 fl (35.1-43.9); Red Blood Count 3.34 M/mm3 (4.2-5.4); White Blood Count 14.7 K/mm3 (4.4-11.0)
[2024-02-29] MEDS: Levothyroxine 50 MCG Tablet PO (06:13)
[2024-02-29] MEDS: SILDENAFIL CITRATE 20 MG TABLET PO ×3 (06:13→22:39)
[2024-02-29] MEDS: Diphenoxylate/Atrop 1 Tablet 5 TABLET PO (06:13)
[2024-02-29] MEDS: morphine SR 15 MG Tablet PO ×3 (06:13→22:39)
[2024-02-29 06:25] LABS: Anion Gap 3 (5-15); BUN 48 mg/dL (7-18); BUN/Creat Ratio 64.6 RATIO (10-20); Calcium,Total 8.3 mg/dL (8.5-10.1); Chloride 96 mmol/L (98-107); Creatinine, Serum 0.74 mg/dL (0.55-1.02); EST Glomerular Filtration Rate 82 mL/min (>60); Est Glom Filt Rate - Afr Amer 99 mL/min (>60); Estimated Creatinine Clearance 84.94 ml/min; Glucose 97 mg/dL (74-106); Potassium 4.1 mmol/L (3.5-5.1); Sodium Level 135 mmol/L (136-145)
[2024-02-29] MEDS: Midodrine HCl 5 MG Tablet PO ×2 (08:52→13:01)
[2024-02-29] MEDS: Menthol/Lanolin/Calamine/Znox 113 GM Tube 1 APPLIC TOPICAL ×2 (08:52→22:37)
[2024-02-29] MEDS: Amiodarone 200 MG Tablet 100 MG PO (08:52)
[2024-02-29] MEDS: Ammonium Lactate 225 gm Bottle 1 APPLIC TOPICAL ×2 (08:53→22:36)
[2024-02-29] MEDS: Venlafaxine XR 37.5 MG Capsule PO (08:53)
[2024-02-29] MEDS: Digoxin 125 MCG Tablet PO (08:54)
[2024-02-29] MEDS: Petrolatum 33% Tube 1 APPLIC TOPICAL ×2 (08:54→22:37)
[2024-02-29] MEDS: predniSONE 20 MG Tablet PO (08:55)
[2024-02-29] MEDS: Cholecalciferol (VIT D3) 25 MCG TABLET (1,000 UNITS) PO (08:55)
[2024-02-29] MEDS: Senna/Docusate Sodium 1 Tablet PO ×2 (08:55→22:39)
[2024-02-29] MEDS: Nystatin Powder 15gm Bottle 1 APPLIC TOPICAL ×2 (08:55→22:38)
[2024-02-29] MEDS: Ferrous Sulfate 325 MG Tablet PO (12:49)
[2024-02-29] MEDS: 0.9 % NaCl (Sterile) Posiflush 10 mL IV (13:11)
--- NOTE | 2024-02-29 17:23 | RAD_ITS ---
STUDY: X-RAY - ABDOMEN/PELVIS REASON FOR EXAM: Female, 68 years old. Nausea/constipation. TECHNIQUE: Frontal views COMPARISON: None. FINDINGS: Normal visualized lung bases. There is an unremarkable bowel gas pattern. There is no demonstrated free abdominal air. The visualized liver, spleen and kidneys are grossly normal in size and morphology. Normal soft tissue structures. Degenerative vertebral changes . RAD/Abdomen Single View IMPRESSION: No significant fecal retention. Electronically Signed: Elvin Cardona DO at 19:54 EDT ,
[2024-02-29] MEDS: predniSONE 5 MG Tablet 17.5 MG PO (17:38)
[2024-02-29] MEDS: Rivaroxaban 20 MG Tablet PO (17:39)
--- NOTE | 2024-02-29 17:46 | NURSING ---
BP AND HR RATE HAS BEEN UP AND PT FEELING NAUSEATED. NOTE LEFT FOR . MIDODRINE D/C AND NEW ORDER FOR SSE.
[2024-02-29] MEDS: Baclofen 10 MG Tablet PO (22:40)
[2024-03-01 06:00] VITALS: BMI 40.3
[2024-03-01] MEDS: morphine SR 15 MG Tablet PO ×2 (06:41→13:33)
[2024-03-01] MEDS: SILDENAFIL CITRATE 20 MG TABLET PO ×3 (06:41→22:19)
[2024-03-01] MEDS: Levothyroxine 50 MCG Tablet PO (06:41)
[2024-03-01] MEDS: Diphenoxylate/Atrop 1 Tablet 5 TABLET PO (06:43)
[2024-03-01 06:45] VITALS: BP 144/78
--- NOTE | 2024-03-01 07:50 | NURSING ---
Spoke w/ Dr. Brand and updated this nurse administered SSE last hs and resident had positive results. Order received and read back to DC SSE.
[2024-03-01 09:00] VITALS: BP 112/56; PULSE 101; RESP 20; TEMP 35.9; O2SAT 97
[2024-03-01] MEDS: Amiodarone 200 MG Tablet 100 MG PO (09:03)
[2024-03-01] MEDS: Venlafaxine XR 37.5 MG Capsule PO (09:03)
[2024-03-01 09:04] VITALS: PULSE 101
[2024-03-01] MEDS: Digoxin 125 MCG Tablet PO (09:04)
[2024-03-01] MEDS: predniSONE 20 MG Tablet PO (09:04)
[2024-03-01] MEDS: Senna/Docusate Sodium 1 Tablet PO ×2 (09:04→22:19)
[2024-03-01] MEDS: Cholecalciferol (VIT D3) 25 MCG TABLET (1,000 UNITS) PO (09:04)
[2024-03-01] MEDS: Nystatin Powder 15gm Bottle 1 APPLIC TOPICAL (09:06)
[2024-03-01] MEDS: Menthol/Lanolin/Calamine/Znox 113 GM Tube 1 APPLIC TOPICAL ×2 (09:06→22:19)
[2024-03-01] MEDS: Petrolatum 33% Tube 1 APPLIC TOPICAL (09:06)
[2024-03-01] MEDS: Ammonium Lactate 225 gm Bottle 1 APPLIC TOPICAL (09:06)
[2024-03-01] MEDS: 0.9 % NaCl (Sterile) Posiflush 10 mL IV (09:13)
[2024-03-01] MEDS: Ferrous Sulfate 325 MG Tablet PO (11:44)
[2024-03-01 13:03] VITALS: BMI 40.3
--- NOTE | 2024-03-01 15:38 | WOUNDNOTE ---
wound photo: right posterolateral lower leg
[2024-03-01] MEDS: predniSONE 5 MG Tablet 17.5 MG PO (16:51)
[2024-03-01] MEDS: Rivaroxaban 20 MG Tablet PO (16:51)
[2024-03-01] MEDS: Baclofen 10 MG Tablet PO (22:19)
[2024-03-01] MEDS: 0.9% Saline Lock 10 ML Syringe IV (22:23)
[2024-03-01 22:37] VITALS: BP 143/86; PULSE 93; O2SAT 99
--- NOTE | 2024-03-01 22:42 | NURSING ---
Patient calling out, libradoing, Alexis, Alexis Espinoza! This nurse entered patient's room and assessed patient's needs. Patient denied assistance and asked this nurse, isn't there a Alexis in the next room? This nurse asked who Alexis is in relation to the patient. The patient replied, I'm not sure, I heard someone walking back and forth out there. This nurse assured patient that staff is walking the hallways to check in and assist patients. Patient's vitals were obtained, vitals stable, refer to worklist. Patient told this nurse I'm on too many meds. This nurse asked patient if she thought the morphine was making her feel drowsy or confused. Patient reports she has been taking that dosage and frequency of morphine for chronic pain for years and never had an issue. This nurse assessed patient's orientation status, patient Alert and Oriented x 3. This nursed asked patient if she would rather not take her PRN restoril and MINOR morphine since those medications can cause drowsiness. Patient agreed and asked if she could refuse those tonight to see how she feels in the morning. Patient c/o itching around Right Chest Port. Redness at the site. Patient requesting Port to be removed. This nurse de-accessed Port per patient's request, patient tolerated well. Patient denies further assistance, call light in patient's reach, patient verbalized understanding to use call light for assistance.
[2024-03-02] MEDS: Levothyroxine 50 MCG Tablet PO (05:40)
[2024-03-02] MEDS: SILDENAFIL CITRATE 20 MG TABLET PO ×3 (05:40→22:24)
[2024-03-02] MEDS: Diphenoxylate/Atrop 1 Tablet 5 TABLET PO (05:40)
[2024-03-02 05:42] VITALS: BP 161/68; PULSE 97; O2SAT 99
[2024-03-02 06:00] VITALS: BMI 40.3
[2024-03-02 06:59] VITALS: O2SAT 94
[2024-03-02] MEDS: Menthol/Lanolin/Calamine/Znox 113 GM Tube 1 APPLIC TOPICAL ×2 (10:34→22:26)
[2024-03-02] MEDS: Nystatin Powder 15gm Bottle 1 APPLIC TOPICAL ×2 (10:35→22:26)
[2024-03-02] MEDS: Amiodarone 200 MG Tablet 100 MG PO (10:35)
[2024-03-02] MEDS: Venlafaxine XR 37.5 MG Capsule PO (10:36)
[2024-03-02 10:37] VITALS: BP 136/68; PULSE 102
[2024-03-02] MEDS: predniSONE 20 MG Tablet PO (10:37)
[2024-03-02] MEDS: Cholecalciferol (VIT D3) 25 MCG TABLET (1,000 UNITS) PO (10:37)
[2024-03-02] MEDS: Senna/Docusate Sodium 1 Tablet PO (10:37)
[2024-03-02] MEDS: Ferrous Sulfate 325 MG Tablet PO (10:37)
[2024-03-02] MEDS: Digoxin 125 MCG Tablet PO (10:37)
[2024-03-02 10:47] VITALS: BP 136/68; PULSE 102; O2SAT 92
--- NOTE | 2024-03-02 13:23 | CASEMGMT ---
Social Work Pt's friend, Alexis, was visiting and requested another SNF list to review. SW provided printed list from [facility]. When SW returned, pt had a visitor in addition to her friend, so SW provided pt with a hand written, detailed note, explaining pt is not eligible for insurance. Pt would need to pay OOP for SNF and requested SNF choices by end of the week for this worker to begin making referrals. Though, a DC date has not been set yet. Pt thanked this worker for note and additional SNF list. SW will continue to follow. NESHA DayW
[2024-03-02 13:51] VITALS: BP 109/75; PULSE 98; RESP 16; TEMP 36.1; O2SAT 94
[2024-03-02] MEDS: predniSONE 5 MG Tablet 17.5 MG PO (16:30)
[2024-03-02] MEDS: Rivaroxaban 20 MG Tablet PO (16:30)
[2024-03-02] MEDS: Baclofen 10 MG Tablet PO (22:24)
[2024-03-02] MEDS: Ammonium Lactate 225 gm Bottle 1 APPLIC TOPICAL (22:26)
[2024-03-02] MEDS: Petrolatum 33% Tube 1 APPLIC TOPICAL (22:27)
[2024-03-03] VITALS (7 sets, daily range): BP systolic 113–127; BP diastolic 53–84; PULSE 85–98; RESP 16–17; TEMP 36.4; O2SAT 92–96; BMI 40.1
[2024-03-03] MEDS: Levothyroxine 50 MCG Tablet PO (05:32)
[2024-03-03] MEDS: SILDENAFIL CITRATE 20 MG TABLET PO ×3 (05:32→20:23)
[2024-03-03] MEDS: Diphenoxylate/Atrop 1 Tablet 5 TABLET PO (05:34)
[2024-03-03] MEDS: Amiodarone 200 MG Tablet 100 MG PO (10:50)
[2024-03-03] MEDS: Venlafaxine XR 37.5 MG Capsule PO (10:51)
[2024-03-03] MEDS: Digoxin 125 MCG Tablet PO (10:52)
[2024-03-03] MEDS: Nystatin Powder 15gm Bottle 1 APPLIC TOPICAL ×2 (10:52→20:23)
[2024-03-03] MEDS: Cholecalciferol (VIT D3) 25 MCG TABLET (1,000 UNITS) PO (10:53)
[2024-03-03] MEDS: predniSONE 20 MG Tablet PO (10:53)
[2024-03-03] MEDS: Menthol/Lanolin/Calamine/Znox 113 GM Tube 1 APPLIC TOPICAL ×2 (10:53→20:23)
[2024-03-03] MEDS: Senna/Docusate Sodium 1 Tablet PO (10:53)
[2024-03-03] MEDS: Ferrous Sulfate 325 MG Tablet PO (11:22)
[2024-03-03] MEDS: predniSONE 5 MG Tablet 17.5 MG PO (16:51)
[2024-03-03] MEDS: Rivaroxaban 20 MG Tablet PO (16:51)
--- NOTE | 2024-03-03 19:24 | NURSING ---
PT MORE AWAKE TODAY. STILL REFUSING THE MORPHINE. DRESSING CHANGED TO PT RT LOWER POST LEG PER ORDER. A COUPLE SMALL BLOOD CLOTS DID COME OUT OF WOUND. MOHSEN BRADLEY/WOUND NURSE AWARE. AND RN.
[2024-03-03] MEDS: Baclofen 10 MG Tablet PO (20:23)
[2024-03-04 06:00] VITALS: BMI 39.9
[2024-03-04] MEDS: Diphenoxylate/Atrop 1 Tablet 5 TABLET PO (06:03)
[2024-03-04] MEDS: Levothyroxine 50 MCG Tablet PO (06:04)
[2024-03-04] MEDS: SILDENAFIL CITRATE 20 MG TABLET PO ×3 (06:04→21:13)
[2024-03-04 06:11] VITALS: BP 151/80; PULSE 113
[2024-03-04 07:52] VITALS: O2SAT 95
[2024-03-04] MEDS: Venlafaxine XR 37.5 MG Capsule PO (12:07)
[2024-03-04] MEDS: Amiodarone 200 MG Tablet 100 MG PO (12:07)
[2024-03-04] MEDS: Ferrous Sulfate 325 MG Tablet PO (12:08)
[2024-03-04] MEDS: Cholecalciferol (VIT D3) 25 MCG TABLET (1,000 UNITS) PO (12:09)
[2024-03-04] MEDS: predniSONE 20 MG Tablet PO (12:10)
[2024-03-04] MEDS: Nystatin Powder 15gm Bottle 1 APPLIC TOPICAL ×2 (12:10→21:13)
[2024-03-04 12:11] VITALS: BP 121/72; PULSE 108
[2024-03-04] MEDS: Menthol/Lanolin/Calamine/Znox 113 GM Tube 1 APPLIC TOPICAL ×2 (12:11→21:13)
[2024-03-04] MEDS: Digoxin 125 MCG Tablet PO (12:11)
[2024-03-04 12:20] VITALS: BP 121/72; PULSE 108; RESP 18; TEMP 36.7; O2SAT 95
[2024-03-04] MEDS: predniSONE 5 MG Tablet 17.5 MG PO (16:59)
[2024-03-04] MEDS: Rivaroxaban 20 MG Tablet PO (17:00)
[2024-03-04 21:00] VITALS: PULSE 107; RESP 18
[2024-03-04] MEDS: Baclofen 10 MG Tablet PO (21:13)
[2024-03-04] MEDS: morphine SR 15 MG Tablet PO (21:13)
[2024-03-04 21:16] VITALS: BP 156/87; PULSE 107
[2024-03-04] MEDS: Temazepam 15 MG Capsule PO (23:37)
[2024-03-05] MEDS: Diphenoxylate/Atrop 1 Tablet 5 TABLET PO (05:15)
[2024-03-05] MEDS: SILDENAFIL CITRATE 20 MG TABLET PO ×3 (05:16→22:22)
[2024-03-05] MEDS: Levothyroxine 50 MCG Tablet PO (05:17)
[2024-03-05] MEDS: morphine SR 15 MG Tablet PO ×3 (05:18→22:20)
[2024-03-05 05:25] VITALS: BP 126/77; PULSE 100
[2024-03-05 06:00] VITALS: BMI 39.9
[2024-03-05] MEDS: Amiodarone 200 MG Tablet 100 MG PO (08:12)
[2024-03-05 08:13] VITALS: PULSE 102
[2024-03-05] MEDS: Digoxin 125 MCG Tablet PO (08:13)
[2024-03-05] MEDS: Venlafaxine XR 37.5 MG Capsule PO (08:13)
[2024-03-05] MEDS: Cholecalciferol (VIT D3) 25 MCG TABLET (1,000 UNITS) PO (08:14)
[2024-03-05] MEDS: predniSONE 20 MG Tablet PO (08:14)
[2024-03-05] MEDS: Ammonium Lactate 225 gm Bottle 1 APPLIC TOPICAL (08:16)
[2024-03-05] MEDS: Petrolatum 33% Tube 1 APPLIC TOPICAL (08:17)
[2024-03-05] MEDS: Nystatin Powder 15gm Bottle 1 APPLIC TOPICAL (08:18)
[2024-03-05] MEDS: Menthol/Lanolin/Calamine/Znox 113 GM Tube 1 APPLIC TOPICAL (08:19)
[2024-03-05 11:06] VITALS: O2SAT 94
[2024-03-05 13:13] VITALS: BP 128/70; PULSE 98; RESP 14; TEMP 36.3; O2SAT 91
[2024-03-05] MEDS: Ferrous Sulfate 325 MG Tablet PO (14:14)
[2024-03-05] MEDS: predniSONE 5 MG Tablet 17.5 MG PO (17:20)
[2024-03-05] MEDS: Rivaroxaban 20 MG Tablet PO (17:20)
[2024-03-05] MEDS: Temazepam 15 MG Capsule PO (22:19)
[2024-03-05 22:20] VITALS: BP 139/73; PULSE 91; RESP 16
[2024-03-05] MEDS: Baclofen 10 MG Tablet PO (22:23)
[2024-03-06 06:00] VITALS: BMI 39.9
[2024-03-06 06:15] VITALS: BP 109/71; PULSE 84
[2024-03-06] MEDS: SILDENAFIL CITRATE 20 MG TABLET PO ×2 (06:17→22:13)
[2024-03-06] MEDS: Levothyroxine 50 MCG Tablet PO (06:17)
[2024-03-06] MEDS: morphine SR 15 MG Tablet PO ×3 (06:17→22:10)
[2024-03-06] MEDS: Diphenoxylate/Atrop 1 Tablet 5 TABLET PO (06:22)
[2024-03-06] MEDS: Amiodarone 200 MG Tablet 100 MG PO (09:33)
[2024-03-06] MEDS: predniSONE 20 MG Tablet PO (09:33)
[2024-03-06] MEDS: Cholecalciferol (VIT D3) 25 MCG TABLET (1,000 UNITS) PO (09:33)
[2024-03-06 09:34] VITALS: PULSE 100
[2024-03-06] MEDS: Digoxin 125 MCG Tablet PO (09:34)
[2024-03-06] MEDS: Menthol/Lanolin/Calamine/Znox 113 GM Tube 1 APPLIC TOPICAL (09:34)
[2024-03-06] MEDS: Nystatin Powder 15gm Bottle 1 APPLIC TOPICAL (09:35)
[2024-03-06] MEDS: Petrolatum 33% Tube 1 APPLIC TOPICAL ×2 (09:35→22:11)
[2024-03-06] MEDS: Ammonium Lactate 225 gm Bottle 1 APPLIC TOPICAL ×2 (09:35→22:11)
[2024-03-06] MEDS: Venlafaxine XR 37.5 MG Capsule PO (09:41)
[2024-03-06] MEDS: Ferrous Sulfate 325 MG Tablet PO (12:24)
[2024-03-06 14:35] VITALS: BP 80/51; PULSE 101; RESP 16; TEMP 36.6; O2SAT 94
[2024-03-06 14:49] VITALS: BP 100/60
[2024-03-06] MEDS: Rivaroxaban 20 MG Tablet PO (16:59)
[2024-03-06] MEDS: predniSONE 5 MG Tablet 17.5 MG PO (16:59)
[2024-03-06] MEDS: Temazepam 15 MG Capsule PO (22:10)
[2024-03-06] MEDS: Baclofen 10 MG Tablet PO (22:12)
[2024-03-07] MEDS: SILDENAFIL CITRATE 20 MG TABLET PO (05:26)
[2024-03-07] MEDS: morphine SR 15 MG Tablet PO (05:27)
[2024-03-07] MEDS: Diphenoxylate/Atrop 1 Tablet 5 TABLET PO (05:27)
[2024-03-07] MEDS: Levothyroxine 50 MCG Tablet PO (05:31)
[2024-03-07 05:33] VITALS: BP 122/81; PULSE 99; O2SAT 94
[2024-03-07 05:46] LABS: Absolute Neutrophil Count 24.5 X10^3/uL (2.0-7.7); Basophil# 0.07 X10^3/uL; Basophil% 0.3 % (0-1); Hematocrit 35.2 % (37-47); Hemoglobin 10.9 g/dL (12.0-15.0); Lymphocyte % 2.5 % (19-41); Mean Platelet Vol. 9.9 fl (6.2-12.0); Monocyte# 1.21 X10^3/uL; Monocyte% 4.4 % (0-10); NRBC Flagged by Analyzer 0 % (0-5); Neutrophil # 24.49 X10^3/uL (2.7-7.7); Neutrophil % 88.6 % (47-70); POSITIVE DIFFERENTIAL YES; Platelet Count 243 K/mm3 (150-450); RBC Distribution Width CV 14.8 % (11.6-14.6); Red Blood Count 3.52 M/mm3 (4.2-5.4); White Blood Count 27.6 K/mm3 (4.4-11.0)
[2024-03-07 06:00] VITALS: BMI 39.2
[2024-03-07 06:10] LABS: Anion Gap 4 (5-15); BUN 31 mg/dL (7-18); BUN/Creat Ratio 38.8 RATIO (10-20); Calcium,Total 7.9 mg/dL (8.5-10.1); Chloride 95 mmol/L (98-107); EST Glomerular Filtration Rate 76 mL/min (>60); Est Glom Filt Rate - Afr Amer 91 mL/min (>60); Estimated Creatinine Clearance 83.27 ml/min; Glucose 105 mg/dL (74-106); Sodium Level 132 mmol/L (136-145)
[2024-03-07 06:13] LABS: Differential Indicated SCAN CRITERIA MET
--- NOTE | 2024-03-07 06:30 | NURSING ---
ELECTRO MECHANICAL TECHNOLOGIST calls this nurse into resident's room. Large hematoma noted to lt anterior lower leg. Note left for Dr. Brand to assess this am.
[2024-03-07 09:38] LABS: Differential Comment SCANNED; Platelet Estimate ADEQUATE (ADEQ); Platelet Morphology CLUMPED; Red Cell Morphology NORM C+C NORMAL (NORM C&C)
[2024-03-07] MEDS: Clindamycin HCl 150 MG Capsule 300 MG PO (10:24)
[2024-03-07] MEDS: Amiodarone 200 MG Tablet 100 MG PO (10:25)
[2024-03-07] MEDS: Doxycycline 100 MG CAPSULE PO (10:25)
[2024-03-07 10:26] VITALS: PULSE 76
[2024-03-07] MEDS: Venlafaxine XR 37.5 MG Capsule PO (10:26)
[2024-03-07] MEDS: Senna/Docusate Sodium 1 Tablet PO (10:26)
[2024-03-07] MEDS: Digoxin 125 MCG Tablet PO (10:26)
[2024-03-07] MEDS: Cholecalciferol (VIT D3) 25 MCG TABLET (1,000 UNITS) PO (10:29)
[2024-03-07] MEDS: Ammonium Lactate 225 gm Bottle 1 APPLIC TOPICAL (10:29)
[2024-03-07] MEDS: Nystatin Powder 15gm Bottle 1 APPLIC TOPICAL (10:29)
[2024-03-07] MEDS: predniSONE 20 MG Tablet PO (10:29)
[2024-03-07] MEDS: Petrolatum 33% Tube 1 APPLIC TOPICAL (10:30)
[2024-03-07] MEDS: Menthol/Lanolin/Calamine/Znox 113 GM Tube 1 APPLIC TOPICAL (10:30)
[2024-03-07] MEDS: Ferrous Sulfate 325 MG Tablet PO (11:21)
[2024-03-07 12:40] VITALS: BP 106/47; PULSE 66; RESP 18; TEMP 37.2; O2SAT 86
[2024-03-07 12:50] VITALS: O2SAT 96
--- NOTE | 2024-03-07 14:06 | CASEMGMT ---
Addendum entered by Jesi Rendon 03/07/24 15:37: Friend, Alexis, updated this worker their preference is [facility]. EDDIE sent referral via [employer]Port. Addendum entered by Jesi Rendon 03/07/24 15:09: Hospice nurse arriving about 1530 and meeting with pt and all 3 friends. EDDIE updated friends and requested the SNF choices to place referrals once known. Friends expressed understanding. Nursing update. Will continue to follow. Original Note: Social Work EDDIE was alerted by RN that pt is done. EDDIE met with pt at bedside. Pt's eyes closed, pale, sensitive to sound. Pt states she has given up; done. Refusing pain medication, any further medical treatment or therapy. Pt responding with shaking her head or one word answers, keeping her eyes closed and not wanting to keep engaged in conversation. Pt did agree to hospice. Friend/POA, Gabbie, present in room, and confirmed pt shared this with her as well. Shortly after, pt's other friend, Alexis, arrived. Alexis described pt having a major change than over the weekend. Both friends agree she looks like she is dying and for this worker to make hospice referral. EDDIE explained pt still cannot go home, and pt will need a SNF. Reiterated this worker will make the SNF referrals if the friends can select their top 3 choices. All in agreement and requested to call other friend, Carmella, to assist in making a decision. SW agreed and will start making the hospice referral. EDDIE updated Dr Brand and Sunday gave verbal order and dx for hospice. stated he told pt she was dying today and pt would not be currently appropraite for IPU. EDDIE sent secure email to [facility] referral email and Geni Weber. Pt changed code status to DNR-CC. Will continue to follow. Jesi Rendon. DISPOSAL MAN UTILIZATION MANAGEMENT MANAGER
--- NOTE | 2024-03-07 14:18 | NURSING ---
Pt refused MS Contin this shift per pt does not like the way it makes her feel. Offered to page Dr. Brand and get another pain medication pt refused when offered.
--- NOTE | 2024-03-07 14:34 | WOUNDNOTE ---
wound photo: left lower leg
--- NOTE | 2024-03-07 14:34 | WOUNDNOTE ---
wound photo: right posterolateral lower leg
--- NOTE | 2024-03-07 14:36 | NURSING ---
Vp Marketing Services And Skin Note; Father Amrit was in to see Becky to give her communion and anointing, she refused. I then asked to cut he nails and she refused again this Thursday.
[2024-03-07 16:52] LABS: Bedside Glucose 173 mg/dL (74-106)
--- NOTE | 2024-03-07 16:58 | NURSING ---
1630 FAMILY LAW SPECIALIST called, pt was being transferred from chair to bed via april, pt was alert & oriented. Then corrections nurse called out for nurse, pt had went unresponsive for approx 10 minutes. pt had just signed for DNRCC w/hospice nurse. Hospice nurse going to try to get pt to inpt unit. pt responding better now on 4 liter nonrebreather. resting in bed, POAs at side.
--- NOTE | 2024-03-07 18:58 | DS.PCM_ITS ---
Providers Date of Admission: 02/14/24 Primary Care Physician: Dr. Julian Brand MD Consultations 02/14/24 20:19 Consult: Onc/Wound/training development specialist Routine Comment: Reason for Consult:: Lymphedema all extremities. 02/17/24 14:35 Consult: Gastroenterology Routine Consulting Provider: [facility] Reason for Consult: Anemia, +hemoccult. EMERGENT Consult: No MD Notified: Yes Date Notified: 02/17/24 Time Notified: 14:35 Method of Notification: Text 02/20/24 15:55 Consult: Pain Management Routine Consulting Provider: Devora Asencio Reason for Consult: chronic pain/chronic narcotic use - other options for pain relief EMERGENT Consult: No MD Notified: Yes Date Notified: 02/22/24 Time Notified: 08:58 Method of Notification: Answering Service 02/23/24 06:49 Consult: Onc/Wound/training development specialist Routine Comment: Reason for Consult:: rle open area Comments:: severe lymphedema 03/07/24 13:58 Consult: Hospice / Palliative Care Routine Consulting Provider: [facility] Reason for Consult: HOSPICE - dx: cirrhosis of liver, adrenal insufficiency, lymphedema EMERGENT Consult: Yes MD Notified: Yes Date Notified: 03/07/24 Time Notified: 13:58 Method of Notification: Text Reason For Visit: WARNER/FATIGUE Diagnosis Discharge Diagnosis (1) Anasarca: Status: Acute Code(s): R60.1 - Generalized edema (2) Lymphedema of lower extremity: Status: Chronic Code(s): I89.0 - Lymphedema, not elsewhere classified (3) Hypogammaglobulinemia: Status: Chronic Code(s): D80.1 - Nonfamilial hypogammaglobulinemia (4) Obstructive sleep apnea: Status: Chronic Code(s): G47.33 - Obstructive sleep apnea (adult) (pediatric) (5) Pulmonary hypertension: Status: Chronic Code(s): I27.2 - Other secondary pulmonary hypertension (6) Chronic steroid use: Status: Chronic Code(s): [id number] - (7) Osteoporosis: Status: Chronic Code(s): M81.0 - Age-related osteoporosis without current pathological fracture Qualifiers: Osteoporosis type: age-related Presence of current pathological fracture: without current pathological fracture Qualified Code(s): M81.0 - Age- related osteoporosis without current pathological fracture (8) Crohns disease: Status: Chronic Code(s): K50.90 - Crohn's disease, unspecified, without complications Qualifiers: Gastrointestinal tract location: small intestine Digestive disease complication type: unspecified complication Qualified Code(s): K50.019 - Crohn's disease of small intestine with unspecified complications (9) Paroxysmal atrial fibrillation: Status: Chronic Code(s): I48.0 - Paroxysmal atrial fibrillation (10) Anemia: Status: Acute Code(s): D64.9 - Anemia, unspecified Qualifiers: Anemia type: other cause Other causes of anemia: chronic disease, other Qualified Code(s): D63.8 - Anemia in other chronic diseases classified elsewhere (11) Hyperbilirubinemia: Status: Acute Code(s): E80.6 - Other disorders of bilirubin metabolism (12) Narcotic dependency, continuous: Status: Acute Code(s): F11.20 - Opioid dependence, uncomplicated (13) Metabolic alkalosis: Status: Acute Code(s): E87.3 - Alkalosis (14) B12 deficiency: Status: Acute Code(s): E53.8 - Deficiency of other specified B group vitamins (15) Chronic pain: Status: Chronic Code(s): G89.29 - Other chronic pain (16) Cellulitis: Status: Acute Code(s): L03.90 - Cellulitis, unspecified Plan 68 year old female with below past medical history hospitalized for weakness, acute kidney injury, lactic acidosis, acute kidney injury, hypotension, admitted to TCU with debility, here for rehabilitation, strengthening, prior to discharge home alone. * Debility - PT/OT. * Pain - MS Contin 15mg tid, Lidoderm patch 1 patch td daily prn. * Bowel - Lomotil 5 tablets daily. * Adult immunization - Administer pneumonia vaccine, covid vaccine, flu vaccine as appropriate. * DVT prophylaxis - on Xarelto. * Atrial fibrillation - Amiodarone 100mg daily, Xarelto 20mg daily. * Skin irritation - Ammonium Lactate topical bid. * Muscle spasm - Baclofen 10mg qhs. * Vitamin D deficiency - Vitamin D3 25mcg daily. * COPD - Fluticasone/Salmeterol 232-14mcg 1 puff bid prn. * Hypothyroidism - Levothyroxine 50mcg daily. * Allergic rhinitis - Loratadine 10mg daily prn, Singulair 10mg daily prn. * GERD - Pantoprazole 40mg daily prn. * Adrenal insufficiency - Prednisone 20mg bidcm. * Pulmonary hypertension - Revatio 20mg tid. * Left upper extremity swelling - Doppler ultrasound LLE to rule out DVT. * Left upper extremity cellulitis - Doxycycline 100mg bid x 7 days, Levaquin 500mg daily x 7 days. Hospital Course Operations None Procedures None Summary of Care Provided Minutes Spent on Discharge: 35 Hospital Course: 68 year old female with below past medical history hospitalized for weakness, acute kidney injury, lactic acidosis, acute kidney injury, hypotension, admitted to TCU with debility, here for rehabilitation, strengthening, prior to discharge home alone. 03/07/2024 Resident dying. Discharge to Inpatient Hospice 03/07/2024 for end of life care. Physical Exam Const alert General Appearance: cooperative HEENT normocephalic Eyes PERRL and EOMs intact bilaterally Neck supple, no JVD and no carotid bruits Resp normal respiratory effort, normal air movement and clear to auscultation bilaterally Cardio regular rate and regular rhythm GI normal to inspection, nondistended, normoactive bowel sounds, non-tender and non-distended Extremity normal capillary refill Extremity Narrative: 3+ bilateral lower extremity edema. General Extremity: Negative for edema Skin no rashes or lesions noted General Skin Exam: no breakdown Psych affect normal Appearance: appropriate Weight / BMI Weight Weight: 110.677 kg Body Mass Index (BMI) 39.2 ABG / Lab / Microbiology Data 03/07/24 05:22 03/07/24 05:22 Laboratory: Laboratory Results - last 24 hr 03/07/24 05:22: WBC 27.6 H, RBC 3.52 L, Hgb 10.9 L, Hct 35.2 L, MCV 100.0 H, MCH 31.0, MCHC 31.0 L, RDW Std Deviation 55.0 H, RDW Coeff of Curtis 14.8 H, Plt Count 243, MPV 9.9, Immature Gran % (Auto) 4.200 H, Neut % (Auto) 88.6 H, Lymph % (Auto) 2.5 L, Owen % (Auto) 4.4, Eos % (Auto) 0.0, Baso % (Auto) 0.3, Absolute Neuts (auto) 24.5 H, Absolute Lymphs (auto) 0.70 L, Nucleated RBC % 0, Differential Comment SCANNED, Platelet Estimate ADEQUATE, Plt Morphology Comment CLUMPED, RBC Morphology NORM C+C, Sodium 132 L, Potassium 4.0, Chloride 95 L, C arbon Dioxide 34.0 H, Anion Gap 4 L, BUN 31 H, Creatinine 0.80, Estim Creat Clear Calc 83.27, Est GFR (MDRD) Af Amer 91, Est GFR (MDRD) Non-Af 76, B UN/Creatinine Ratio 38.8 H, Glucose 105, Calcium 7.9 L 03/07/24 16:34: POC Glucose 173 H Microbiology: Microbiology 03/01/24 06:24 Nasal Secretion SARS-CoV-2 Antigen (Rapid) - Final 02/23/24 06:16 Nasal Secretion SARS-CoV-2 Antigen (Rapid) - Final 02/20/24 17:15 Stool Stool Occult Blood (MAREK) - Final Occult Blood Positive 02/19/24 13:00 Urine Catheter - Lambert Urine Culture - Final Yeast, not Aziza albicans D/C Instructions Discharge Diet: No restrictions Weight Bearing Status: Weight bearing as tolerated Additional Instructions: Discharge to Inpatient Hospice 03/07/2024 for end of life care. Meaningful Use Info Meaningful Use Meaningful Use Diagnoses (Choose all that apply): None applicable Ischemic Stroke Statin Dosing Therapy Reference: STATIN DOSE THERAPY REFERENCE: * Patients > 75 years receive moderate or high dose statin therapy. * Patients 75 years or YOUNGER should receive HIGH intensity statin dose unless contraindicated. You will be required to document reason for non-treatment if statin daily dose does not meet guidelines. HIGH DOSE STATIN THERAPY DAILY Atorvastatin > than or = to 40 mg Rosuvastatin > than or = to 20 mg Amlodipine + Atorvastatin > than or = to 2.5/40 mg Ezetimibe + Simvastatin 10/80 mg Simvastatin 80mg Discharge Plan Admission Admit Date/Time: 02/14/24 13:40 Primary Reason for Your Visit: Debility. Attending Provider: Julian Brand Chi Primary Care Provider: Julian Brand Chi Consulting Providers: Ridge Valdes; Tiki Casillas; Maddi Palomo; Mariana Chahal; Genoveva Jackson WELT CUTTER; Divina Contreras Instructions Additional Instructions / Restrictions: Discharge to Inpatient Hospice 03/07/2024 for end of life care. Discharge Orders/Prescriptions Prescriptions: Discontinued pantoprazole 40 mg tablet,delayed release (DR/EC) 40 mg PO DAILY PRN (Reason: Acid Reflux) levothyroxine 50 mcg tablet 50 mcg PO DAILY Prolia 60 mg/mL syringe 60 mg subcut [id number] Qty: 1 1RF budesonide-formoterol [Symbicort] 160-4.5 mcg/actuation HFA aerosol inhaler 2 puff inhalation BID PRN (Reason: SOB) lidocaine 5 % adhesive patch,medicated 1 patch topical DAILY PRN (Reason: pain) Rx Instructions: leave on most painful area for up to 12 hrs diphenoxylate-atropine 2.5-0.025 mg tablet 5 tab PO DAILY ammonium lactate 12 % cream 1 applic TOPICAL BID Patient Comments: Apply to the lower legs twice daily sildenafil (pulm.hypertension) 20 mg tablet 20 mg PO TID morphine 15 mg tablet extended release 15 mg PO TID Patient Comments: TAKE 1 TABLET BY MOUTH 3NTIMES DAILY montelukast 10 mg tablet 10 mg PO DAILY PRN (Reason: pain) loratadine [Allergy Relief (loratadine)] 10 mg tablet 10 mg PO DAILY PRN (Reason: allergy symptoms) IVIG INFUSION 20 g IV .[id number] Rx Instructions: PT GETS IVIG INFUSIONS EVERY MONTH IN ONCOLOGY DEPT. LAST INFUSION IN AUGUST amiodarone 200 mg tablet 100 mg PO Q24H cholecalciferol (vitamin D3) [Vitamin D3] 25 mcg (1,000 unit) capsule 25 mcg PO DAILY prednisone 20 mg tablet 20 mg PO BID baclofen 10 mg tablet 10 mg PO QHS Xarelto 20 mg tablet 20 mg PO DAILY Qty: 30 11RF digoxin 125 mcg (0.125 mg) tablet 125 mcg PO DAILY Qty: 90 3RF Referrals / Follow Up: Julian Brand Chi, MD [Primary Care Provider] - Disposition Disposition (needs filled in before D/C Order can be placed): Hospice in Medical Facility
--- NOTE | 2024-03-08 08:28 | CASEMGMT ---
Social Work SW confirmed pt was admitted to Hospice [facility]. [facility] did not have any beds available, but this worker updated [facility]. Jesi Rendon, STATISTICAL METHODS TEACHER COMMUNICATIONS EQUIPMENT INSTALLER
== END 2024-03-08 00:50 | disposition hospice, inpatient (51) | DRG 683 ==
PROVIDERS: Internal Medicine; Admitting Provider Family Medicine Geriatric Medicine; PCP Family Medicine Geriatric Medicine; Visit Provider Family Medicine Geriatric Medicine
DX: N17.9 Acute kidney failure, unspecified (principal); E87.20 Acidosis, unspecified; K91.2 Postsurgical malabsorption, not elsewhere classified; D80.1 Nonfamilial hypogammaglobulinemia; E66.2 Morbid (severe) obesity with alveolar hypoventilation; E27.40 Unspecified adrenocortical insufficiency; E87.3 Alkalosis; K50.019 Crohn's disease of small intestine with unspecified complications; Z68.41 Body mass index [BMI] 40.0-44.9, adult; L03.114 Cellulitis of left upper limb; L03.116 Cellulitis of left lower limb; D63.8 Anemia in other chronic diseases classified elsewhere; I27.29 Other secondary pulmonary hypertension; J44.9 Chronic obstructive pulmonary disease, unspecified; K74.60 Unspecified cirrhosis of liver; E03.9 Hypothyroidism, unspecified; I48.0 Paroxysmal atrial fibrillation; M62.838 Other muscle spasm; E55.9 Vitamin D deficiency, unspecified; K21.9 Gastro-esophageal reflux disease without esophagitis; N25.81 Secondary hyperparathyroidism of renal origin; I89.0 Lymphedema, not elsewhere classified; K80.20 Calculus of gallbladder without cholecystitis without obstruction; M79.7 Fibromyalgia; E53.8 Deficiency of other specified B group vitamins; Z79.01 Long term (current) use of anticoagulants; G89.29 Other chronic pain; Z79.51 Long term (current) use of inhaled steroids; Z79.890 Hormone replacement therapy; M81.0 Age-related osteoporosis without current pathological fracture; Z87.891 Personal history of nicotine dependence; Z79.899 Other long term (current) drug therapy; Z99.81 Dependence on supplemental oxygen; Z23 Encounter for immunization; Z90.49 Acquired absence of other specified parts of digestive tract; Z79.891 Long term (current) use of opiate analgesic; Z79.52 Long term (current) use of systemic steroids
CPT/HCPCS: 36415; 74018; 80048; 80162; 81001; 82024; 82274; 82533; 82607; 82728; 82746; 82803; 82962; 83540; 83550; 83735; 84100; 85014; 85018; 85025; 85027; 85045; 86850; 86900; 86901; 86920; 86922; 87086; 87088; 87811; 90480; 90677; 91322; 93005; 94640; 97110; 97162; 97166; 97530; 97535; A4216; J1940; J3420

== ENCOUNTER → 2024-02-15 | Outpatient (CLI) | payer MEDICARE, OTHER, SELFPAY ==
--- NOTE | 2024-02-15 08:40 | VDUE_ITS ---
Reason For Study: Swelling LUE Left Proximal Left jugular vein is spontaneous, widely patent, phasic, with no intraluminal echogenicity noted. Left subclavian vein is spontaneous, widely patent, phasic, with no intraluminal echogenicity noted. Left Arm Left axillary vein is spontaneous, patent, phasic, competent, compressible and demonstrates augmentation. Left brachial vein is compressible. Lt CephalicV is NON COMPRESSIBLE at elbow (recent blood draw) the rest of the Cephalic V is compressible. Left basilic vein is compressible. Left Lower Arm Left radial vein is compressible. Left ulnar vein is compressible. VL/Venous Duplex US, Unilateral Interpretation Summary Acute superficial vein thrombosis noted in the left cephalic vein Deep veins of the left upper extremity are patent and compressible segmentally. There is no evidence of deep vein thrombosis. Ordering Physician: Julian Brand Chi Referring Physician: Julian Brand Chi Performed By: Tahmina Ruiz, KEYANA, RVT ???
== END | disposition home or self-care (01) ==
LOC: CVS 08:40
PROVIDERS: PCP Family Medicine Geriatric Medicine; Referring Provider Family Medicine Geriatric Medicine; Visit Provider Family Medicine Geriatric Medicine
DX: R22.32 Localized swelling, mass and lump, left upper limb (principal)
CPT/HCPCS: 93971

== ENCOUNTER 2024-02-17 09:55 | Emergency (ER) | payer MEDICARE, OTHER, SELFPAY ==
[2024-02-17] VITALS (8 sets, daily range): BP systolic 90–133; BP diastolic 56–110; PULSE 88–111; RESP 14–93; TEMP 36.8–36.9; O2SAT 17–100; BMI 46.7
--- NOTE | 2024-02-17 10:48 | EDS_ITS ---
HPI History of Present Illness Chief Complaint: Chest Pain Informant: patient Narrative Narrative: Patient is a 5-year-old female with history of proximal atrial fibrillation (on Xarelto), lymphedema of the lower extremities, chronic diarrhea, liver cirrhosis, chronic hypoxia (on 2 L of oxygen), IgG deficiency, pulmonary atrial hypertension and recent urinary tract infection presenting from the TCU for an episode of chest pain. Patient is in the TCU due to debility and did have recent admission for generalized weakness and placement. She was noted to have elevated digoxin level at that time as well. Patient is presenting today after having a 30-minute episode of chest pressure. She states that it felt like something seen on her chest. When asked if there is any radiation she feels like it was circulating around. She denies any lightheadedness. Notes that she has some chronic room spinning sensation for the past 6 months which is unchanged. Is having significant edema of her extremities which she has chronic lymphedema of the lower extremity for the past 4 years but since her recent hospitalizations had significant swelling of her upper extremities. Apparently patient also Had low blood pressure and tachycardia while in the TCU. Patient currently denies any chest discomfort. Denies any new shortness of breath. States that she has not had a bowel movement recently but also reports that she has not wanted to because of her weakness and difficulty using the toilet. Denies any abdominal pain. [facility] Medical History Kidney disease GI bleed DVT (deep venous thrombosis) Atrial fibrillation Chest pain On home oxygen therapy Hyperbilirubinemia Lymphedema Shakiness Fatigue Mild cognitive impairment Secondary hyperparathyroidism Secondary adrenal insufficiency Cellulitis of leg Hyponatremia Hyperparathyroidism Sacroiliitis Weight loss Unintentional weight loss Screening for colon cancer Left ureteral calculus Paroxysmal atrial fibrillation Essential hypertension Skin lesion Thrombocytosis Chronic pain Former smoker CPAP (continuous positive airway pressure) dependence Sleep apnea A-fib New onset a-fib History of echocardiogram Chronic bronchitis History of blood transfusion Pulmonary HTN Bone fracture Vitamin deficiency Skin cancer PNE Back problem Osteoporosis Osteopenia OA (osteoarthritis) Arthritis Gastrointestinal distress Gallstones COPD (chronic obstructive pulmonary disease) Anemia Seasonal allergies Pancreatic divisum Fibromyalgia Immunodeficiency disorder, selective immunoglobulin Asthma Crohns disease HTN (hypertension) GERD (gastroesophageal reflux disease) SARAHY (obstructive sleep apnea) Hypertension Home Medications ?Medication ?Instructions ?Recorded ?Last Taken ?Type pantoprazole 40 mg tablet,delayed 40 mg PO DAILY PRN Acid Reflux 05/29/20 02/14/24 History release diphenoxylate-atropine 2.5 5 tab PO DAILY Diarrhea/Loose 09/06/20 02/14/24 History mg-0.025 mg tablet Stools levothyroxine 50 mcg tablet 50 mcg PO DAILY thyroid 12/09/21 02/14/24 History ammonium lactate 12 % topical cream 1 applic topical BID dry legs 05/12/22 02/13/24 History sildenafil (pulm.hypertension) 20 20 mg PO TID Pulmonary HTN 05/12/22 02/14/24 History mg tablet budesonide-formoterol HFA 160 2 puff inhalation BID PRN SOB 09/24/22 10/18/23 History mcg-4.5 mcg/actuation aerosol inhaler (Symbicort) lidocaine 5 % topical patch 1 patch topical DAILY PRN pain 09/24/22 10/18/23 History Prolia 60 mg/mL subcutaneous 60 mg subcut [id number] #1 mL 12/22/22 Unknown Rx syringe (denosumab) rivaroxaban 20 mg tablet (Xarelto) 20 mg PO DAILY Please change 06/09/23 02/13/24 Rx quantity to 30 days #30 tabs digoxin 125 mcg (0.125 mg) tablet 125 mcg PO DAILY heart #90 tabs 08/24/23 10/18/23 Rx morphine 15 mg tablet,extended 15 mg PO TID PAIN 10/09/23 02/13/24 History release IVIG INFUSION 20 g IV .[id number] immunosuppression 10/18/23 12/07/23 History loratadine 10 mg tablet (Allergy 10 mg PO DAILY PRN allergy symptoms 10/18/23 Unknown History Relief (loratadine)) montelukast 10 mg tablet 10 mg PO DAILY PRN pain 10/18/23 10/18/23 History amiodarone 200 mg tablet 100 mg PO Q24H ARRHYTHMIA 02/05/24 02/14/24 History baclofen 10 mg tablet 10 mg PO QHS spasms 02/05/24 02/13/24 History cholecalciferol (vitamin D3) 25 25 mcg PO DAILY supplement 02/05/24 02/14/24 History mcg (1,000 unit) capsule (Vitamin D3) prednisone 20 mg tablet 20 mg PO BID steroid 02/05/24 02/14/24 History Allergy/AdvReac Type Severity Reaction Status Date / Time codeine Allergy Severe ANGIOEDEMA/LEG Verified 02/05/24 17:41 SWELLING Penicillins Allergy Severe ANGIOEDEMA/LEG Verified 02/05/24 17:41 SWELLING Sulfa (Sulfonamide Allergy Severe ANGIOEDEMA/LEG Verified 02/05/24 17:41 Antibiotics) SWELLING sulfasalazine (From Allergy Severe ANGIOEDEMA/LEG Verified 02/05/24 17:41 Azulfidine) SWELLING Family History Father Anemia Heart disease Hypertension CVA (cerebral vascular accident) Mother Arthritis Cancer Osteoporosis Sister Arthritis Lung disease Surgical History History of cholecystectomy History of appendectomy History of kyphoplasty (~07/07/16) Leg fracture, right History of left knee replacement History of tonsillectomy History of total hysterectomy with bilateral salpingo-oophorectomy (BSO) History of pneumonectomy History of resection of small bowel History of right heart catheterization (RHC) (~05/09/16) Social History household members: none Smoking Status: Former smoker how long ago did patient quit smokin second hand exposure: No alcohol intake: current alcohol intake frequency: other substance use type: does not use caffeine: Yes Type: carbonated beverages, coffee and tea what type of physical activity do you participate in: none seatbelt use: always 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 ROS ED Constitutional Constitutional ED: Denies chills or fever(s) Eyes Eyes: Denies change in vision ENT ENT ED: Denies rhinorrhea or sore throat Cardiovascular Cardiovascular: Reports as per HPI and chest pain; Denies palpitations Respiratory/Chest Respiratory/Chest: Reports other Details: Chronic dyspnea/dyspnea on exertion?no acute change ; Denies cough or sputum Gastrointestinal Gastrointestinal: Denies abdominal pain, melena, nausea or vomiting Genitourinary Genitourinary ED: Denies dysuria Musculoskeletal Musculoskeletal: Denies arthralgias or myalgias Integumentary Denies rash Neurologic Neurologic: Reports weakness; Denies headache(s) or paresthesias Hematologic/Lymphatic Hematologic/Lymphatic: Reports easy bleeding, easy bruising and other Details: On Xarelto EXAM Physical Exam Const Vital Signs: 02/17/24 09:56 02/17/24 10:32 02/17/24 10:43 Temperature 98.2 F Temperature Source Oral Pulse Rate 111 H Respiratory Rate 21 H Respiratory Effort Short of Breath Blood Pressure 103/88 H 90/56 L Blood Pressure Mean 93 67 Pulse Ox Oxygen Delivery Method Oxygen Flow Rate (L/min) 02/17/24 11:00 02/17/24 12:11 02/17/24 13:00 Temperature Temperature Source Pulse Rate 88 97 99 Respiratory Rate 14 18 93 H Respiratory Effort Blood Pressure 94/60 102/60 132/62 H Blood Pressure Mean 71 74 85 Pulse Ox 100 100 17 Oxygen Delivery Method Nasal Cannula Nasal Cannula Oxygen Flow Rate (L/min) 2 2 02/17/24 14:00 02/17/24 15:00 Temperature Temperature Source Pulse Rate 95 96 Respiratory Rate 18 14 Respiratory Effort Blood Pressure 133/110 H 112/79 Blood Pressure Mean 117 90 Pulse Ox 98 100 Oxygen Delivery Method Nasal Cannula Oxygen Flow Rate (L/min) 2 Positive well nourished and well developed General Appearance ED: well developed and NAD HEENT Reports moist mucous membranes Eyes PERRL Neck supple Chest Wall inspection of chest normal and palpation of chest normal Resp normal respiratory effort and clear to auscultation bilaterally Auscultation: Negative for rhonchi or wheezes Cardio regular rate, regular rhythm and no murmurs Peripheral Pulses: pulses 2+ throughout GI normal to inspection, nondistended, normoactive bowel sounds, soft to palpation and non-tender Extremity Extremity Narrative: Significant pain edema of all 4 extremities. Patient has impressive chronic appearing lymphedema of the lower extremities. Exam more consistent with anasarca. Neuro oriented x3 Sensorium / Orientation: awake Motor Exam: general weakness Psych mental status grossly normal Skin no rashes or lesions noted Skin Narrative: Chronic skin changes of the lower extremities with purple discoloration consistent with her chronic lymphedema Heart Score History: Moderately Suspicious ECG: Nonspecific Repolarization Age: >/= 65 years Risk Factors: >/= 3 Risk Factors or History of CAD Score: 6 MDM MDM MDM Narrative Medical decision making narrative: Patient evaluated for a 30-minute episode of chest pressure. Patient has also had reported hypotension and tachycardia in the TCU. On my evaluation patient is currently symptom-free. She is generally weak and has anasarca on exam. Vital signs are significant for tachycardia. Differential includes but is not limited to ACS, intravascular depletion from overdiuresis, anemia, pleural effusions, infection including pneumonia or urinary tract infection. Patient's white blood cell count is downtrending at 15.1. Look sick she has a chronic leukocytosis. She has acute anemia with a hemoglobin of 7.7. Will perform rectal exam given her acute anemia. She is anticoagulated. Cardiac workup largely normal with high sensitive troponin at 22 and 21. EKG does not show acute ischemic changes. Her lactate is normal. Her BUN and creatinine show chronic elevations which are stable. On rectal exam patient has a green stool that is Hemoccult positive. No melena on exam. Case discussed with Dr. Brand, patient's doctor in the TCU. Discussed that she has anemia as well as this anasarca. From a cardiac standpoint I do not think she requires admission and associated with her chest discomfort today. He feels comfortable treating the anemia and swelling in the TCU. He will arrange for blood and Lasix as needed. He can obtain a GI consult. Patient is agreeable this plan of care. Patient be discharged back to TCU. Lab Data Attestation: I reviewed the patient's lab results. Labs: Laboratory Results - last 24 hr 02/17/24 02/17/24 02/17/24 11:35 11:50 14:10 WBC 15.1 H RBC 2.55 L Hgb 7.7 L Hct 25.2 L MCV 98.8 MCH 30.2 MCHC 30.6 L RDW Std Deviation 55.8 H RDW Coeff of Curtis 15.6 H Plt Count 308 MPV 9.5 Immature Gran % (Auto) 4.300 H Neut % (Auto) 85.8 H Lymph % (Auto) 3.6 L [place] % (Auto) 6.1 Eos % (Auto) 0.1 Baso % (Auto) 0.1 Absolute Neuts (auto) 13.0 H Absolute Lymphs (auto) 0.54 L Nucleated RBC % 0 Sodium 139 Potassium 4.3 Chloride 101 Carbon Dioxide 35.0 H Anion Gap 2 L BUN 48 H Creatinine 1.09 H Estim Creat Clear Calc 66.85 Est GFR (MDRD) Af Amer 64 Est GFR (MDRD) Non-Af 53 L BUN/Creatinine Ratio 44.0 H Glucose 105 Lactic Acid 1.1 Calcium 8.4 L Total Bilirubin 1.70 H Direct Bilirubin 0.42 H AST 5 L ALT 13 Alkaline Phosphatase 36 L Troponin I High Sens 22 21 B-Natriuretic Peptide 87.8 Total Protein 4.2 L Albumin 1.9 L Globulin 2.3 Urine Color Yellow Urine Clarity Sl. Cloudy Urine pH 5.0 Ur Specific [place] 1.025 Urine Protein 15 H Urine Glucose (UA) Normal Urine Ketones Negative Urine Occult Blood Negative Urine Nitrite Negative Urine Bilirubin Negative Urine Urobilinogen Normal Ur Leukocyte Esterase Negative Urine RBC 0 SEEN Urine WBC 0 SEEN Ur Squamous Epith Cells 0-5 SEEN Urine Bacteria 1+ Urine Mucus 0 SEEN Digoxin 0.71 L Radiography Diagnostic Testing: Clinical Impression(s) from Imaging Studies Chest X-Ray 02/17/24 11:55 IMPRESSION: Vascular congestion mild degree of CHF. Electronically Signed: Raul Padilla MD at 12:24 EDT , Rhythm Strip Rhythm Strip: Sinus Tach Rate: 114 Ectopy: None EKG Initial EKG: Attestation: I personally reviewed and interpreted this EKG as follows: Interpretation: Sinus Tachycardia Comments: TCU EKG from 912 reviewed Sinus tachycardia at a rate of 114 bpm Normal axis Normal intervals Nonspecific T wave changes Compared to prior EKG on 02/11/2024 patient is now tachycardic with nonspecific changes Differential Diagnosis Chest pain/SOB: pulmonary embolism Reason(s) PE less likely: Positive for patient taking oral anticoagulants Discharge Plan Triage Chief Complaint: Chest Pain ED Provider: Amelia Alvarado Dx/Rx/DC Orders Clinical Impression: Chest pressure, Anemia, Fluid overload, Occult GI bleeding Prescriptions: No Action pantoprazole 40 mg tablet,delayed release (DR/EC) 40 mg PO DAILY PRN (Reason: Acid Reflux) levothyroxine 50 mcg tablet 50 mcg PO DAILY Prolia 60 mg/mL syringe 60 mg subcut [id number] Qty: 1 1RF budesonide-formoterol [Symbicort] 160-4.5 mcg/actuation HFA aerosol inhaler 2 puff inhalation BID PRN (Reason: SOB) lidocaine 5 % adhesive patch,medicated 1 patch topical DAILY PRN (Reason: pain) Rx Instructions: leave on most painful area for up to 12 hrs diphenoxylate-atropine 2.5-0.025 mg tablet 5 tab PO DAILY ammonium lactate 12 % cream 1 applic TOPICAL BID Patient Comments: Apply to the lower legs twice daily sildenafil (pulm.hypertension) 20 mg tablet 20 mg PO TID morphine 15 mg tablet extended release 15 mg PO TID Patient Comments: TAKE 1 TABLET BY MOUTH 3NTIMES DAILY montelukast 10 mg tablet 10 mg PO DAILY PRN (Reason: pain) loratadine [Allergy Relief (loratadine)] 10 mg tablet 10 mg PO DAILY PRN (Reason: allergy symptoms) IVIG INFUSION 20 g IV .[id number] Rx Instructions: PT GETS IVIG INFUSIONS EVERY MONTH IN ONCOLOGY DEPT. LAST INFUSION IN AUGUST amiodarone 200 mg tablet 100 mg PO Q24H cholecalciferol (vitamin D3) [Vitamin D3] 25 mcg (1,000 unit) capsule 25 mcg PO DAILY prednisone 20 mg tablet 20 mg PO BID baclofen 10 mg tablet 10 mg PO QHS Xarelto 20 mg tablet 20 mg PO DAILY Qty: 30 11RF digoxin 125 mcg (0.125 mg) tablet 125 mcg PO DAILY Qty: 90 3RF Primary Care Provider: Julian Brand Chi Referrals: Julian Brand Chi, MD [Primary Care Provider] - Print Language: Panamanian Disposition Disposition: Inpatient Rehab Unit/Facility Discharge Location: [facility] Transitional Care Unit
[2024-02-17 11:42] LABS: Mucous, Urine 0 SEEN /hpf (<or=2+); Red Blood Cells-Urine 0 SEEN /hpf (0-5); White Blood Cells 0 SEEN /hpf (0-5)
[2024-02-17 11:48] LABS: Color, Urine Yellow (Yellow); Glucose, Dipstick Normal (Normal); Ketone-Dipstick Negative (Negative); Leukocyte Esterase-Dipstick Negative /ul (Negative); Nitrite-Dipstick Negative (Negative); Occult Blood-Urine Negative /ul (Negative); Protein-Dipstick 15 mg/dl (Negative); Specific Gravity, Urine 1.025 (1.002-1.030); Urine Bilirubin Dipstick Negative (Negative); Urine Clarity Sl. Cloudy (Clear); Urine Urobilinogen Normal (Normal)
[2024-02-17 11:54] LABS: Bacteria 1+ /hpf (None Seen); Squamous Epithelial Cells - UA 0-5 SEEN /hpf (5-10)
--- NOTE | 2024-02-17 11:55 | RAD_ITS ---
STUDY: X-RAY CHEST REASON FOR EXAM: Female, 68 years old. Chest pain . Swollen extremities. TECHNIQUE: AP and lateral views of the chest. COMPARISON: Comparison is made with prior study February 10, 2024. FINDINGS: A right-sided mundo catheter seen with the tip in the right atrium. Vascular congestion and mild degree of CHF. Blunting of the right costophrenic angle posteriorly. There is mild cardiac enlargement. Normal mediastinum and irena. Normal visualized pulmonary arteries. There is atherosclerotic tortuosity of the aortic arch and descending thoracic aorta. There are diffuse degenerative changes of the visualized thoracic spine. Normal visualized ribs, clavicles, and shoulders. There is no demonstrated abnormality of the visualized soft tissue structures of the upper abdomen. RAD/Chest PA and Lateral IMPRESSION: Vascular congestion mild degree of CHF. Electronically Signed: Raul Padilla MD at 12:24 EDT ,
[2024-02-17 12:10] LABS: Absolute Lymphocyte Count 0.54 X10^3/uL (0.83-4.51); Basophil# 0.02 X10^3/uL; Basophil% 0.1 % (0-1); Eosinophil# 0.01 X10^3/uL; Eosinophils% 0.1 % (0-5); Hematocrit 25.2 % (37-47); Hemoglobin 7.7 g/dL (12.0-15.0); Lymphocyte # 0.54 X10^3/ul (0.83-4.51); Lymphocyte % 3.6 % (19-41); Mean Corp Hgb Conc 30.6 g/dL (32-36); Mean Corpuscular Hgb 30.2 pg (27.0-32.0); Mean Corpuscular Volume 98.8 fL (81-99); Mean Platelet Vol. 9.5 fl (6.2-12.0); Monocyte# 0.92 X10^3/uL; Monocyte% 6.1 % (0-10); NRBC Flagged by Analyzer 0 % (0-5); Neutrophil # 12.95 X10^3/uL (2.7-7.7); Neutrophil % 85.8 % (47-70); POSITIVE DIFFERENTIAL YES; Platelet Count 308 K/mm3 (150-450); RBC Distribution Width CV 15.6 % (11.6-14.6); RBC Distribution Width SD 55.8 fl (35.1-43.9); Red Blood Count 2.55 M/mm3 (4.2-5.4); White Blood Count 15.1 K/mm3 (4.4-11.0)
[2024-02-17 12:23] LABS: AST(SGOT) 5 U/L (15-37); Alanine Aminotransfer ALT/SGPT 13 U/L (13-56); Albumin, Serum 1.9 g/dL (3.2-5.0); Alkaline Phosphatase 36 U/L (45-117); Anion Gap 2 (5-15); BUN 48 mg/dL (7-18); Bilirubin, Direct 0.42 mg/dL (0.00-0.30); Calcium,Total 8.4 mg/dL (8.5-10.1); Chloride 101 mmol/L (98-107); Creatinine, Serum 1.09 mg/dL (0.55-1.02); EST Glomerular Filtration Rate 53 mL/min (>60); Est Glom Filt Rate - Afr Amer 64 mL/min (>60); Estimated Creatinine Clearance 66.85 ml/min; Globulin 2.3 g/dL (2.2-4.2); Glucose 105 mg/dL (74-106); Potassium 4.3 mmol/L (3.5-5.1); Protein, Total 4.2 g/dL (6.4-8.2); Sodium Level 139 mmol/L (136-145); Troponin-I HS (w/2H Reflex) 22 pg/mL (3.0-54.0)
[2024-02-17 12:34] LABS: Digoxin Level 0.71 ng/mL (0.80-2.00)
[2024-02-17 12:36] LABS: BNP,B-Type NATRIURETIC PEPTIDE 87.8 pg/mL (0-100)
[2024-02-17 12:37] LABS: Lactic Acid 1.1 mmol/L (0.4-1.9)
[2024-02-17 13:56] LABS: Reflex Troponin-HS? (from REC) Y
[2024-02-17 14:41] LABS: Troponin-I HS 21 pg/mL (3.0-54.0)
--- NOTE | 2024-02-17 15:34 | ED.RN ---
REPORT CALLED TO TCU NURSEIVÁN. NO FURTHER QUESTIONS BY THE RECEIVING NURSE AT THIS TIME.
== END 2024-02-17 15:56 ==
PROVIDERS: Emergency Provider Emergency Medicine; PCP Family Medicine Geriatric Medicine; Visit Provider Emergency Medicine
DX: R07.89 Other chest pain (principal); K74.60 Unspecified cirrhosis of liver; J44.9 Chronic obstructive pulmonary disease, unspecified; I48.0 Paroxysmal atrial fibrillation; I89.0 Lymphedema, not elsewhere classified; K92.2 Gastrointestinal hemorrhage, unspecified; R09.02 Hypoxemia; G47.33 Obstructive sleep apnea (adult) (pediatric); Z79.01 Long term (current) use of anticoagulants; Z86.718 Personal history of other venous thrombosis and embolism; Z87.891 Personal history of nicotine dependence
CPT/HCPCS: 36591; 71046; 80048; 80076; 80162; 81001; 82274; 83605; 83880; 84484; 85025; 87631; 99283; A4216

== ENCOUNTER 2024-02-18 08:40 | Outpatient (CLI) | payer MEDICARE, OTHER, SELFPAY ==
[2024-02-18 08:57] VITALS: BP 81/36; PULSE 108; RESP 18; TEMP 36.5; O2SAT 92
[2024-02-18 09:40] VITALS: BP 79/41; PULSE 93; RESP 16; TEMP 36.1; O2SAT 90
[2024-02-18 10:40] VITALS: BP 95/51; PULSE 93; RESP 18; TEMP 36.2; O2SAT 94
[2024-02-18 12:19] VITALS: BP 85/47; PULSE 104; RESP 16; TEMP 36; O2SAT 92
[2024-02-18 13:14] VITALS: BP 84/43; PULSE 114; RESP 16; TEMP 36.2; O2SAT 94
== END 2024-02-18 23:59 | disposition home or self-care (01) ==
PROVIDERS: PCP Family Medicine Geriatric Medicine; Referring Provider Family Medicine Geriatric Medicine; Visit Provider Family Medicine Geriatric Medicine
DX: D64.9 Anemia, unspecified (principal)
CPT/HCPCS: 36430; 86850; 86900; 86901; 86920; 86922; J7040; P9016; A4216